=== PATIENT | female | born 1945 | race African-American/Black ===

== ENCOUNTER 2016-07-24 08:12 | Observation (INO) | payer OTHER, MEDICARE ==
[2016-07-24 08:18] VITALS: BMI 17.9
--- NOTE | 2016-07-24 08:33 | PDOC ---
History of Present Illness - General History Source: Patient Exam Limitations: No Limitations - History of Present Illness Initial Comments: 07/24/16 08:33 The patient is a 71-year-old woman with a significant past medical history of hypertension and dystonia who presents to the emergency department via walk-in for further evaluation of itchiness on both hands. Patient reports taking a new medication Carbidopal, and increased her dosagefrom Q.D from TID, over the past 4 days Ever since, she has noted progressive itchiness on both of her hands. This morning, she noted left hand swelling this morning. She placed Calamine lotion on her hands that provided mild relief. She states that she had a brief period of chest pain with associated palpitations that lasted approximately 20 minuted. She initially attributed her chest pain to possible heartburn and drank Prune juice and club soda that did not provide any relief. She denies any associated symptoms of shortness of breath, lightheadedness, dizziness, headache, visual changes. Allergies: Aspirin. Penicillin Past Surgical History: None reported Social History: Current everyday cigarette smoker (approximately 10-15/day). No ETOH and recreational drug use. Primary Care Physician: Dr. Manohar Ramirez Neurologist: Dr. Nyla Medina <Pam Zhou - Last Filed: 07/24/16 11:21> <Ganesh Walker - Last Filed: 07/24/16 11:28> - General Chief Complaint: Chest Pain Stated Complaint: CHEST PAIN, TREMORS Time Seen by Provider: 07/24/16 08:28 Past History <Pam Zhou - Last Filed: 07/24/16 11:21> - Past Medical History HTN: Yes Other medical history: dystonia - Immunization History Immunization Up to Date: Yes - Psycho/Social/Smoking Cessation Hx Suicidal Ideation: No Smoking History: Current every day smoker Have you smoked in the past 12 months: Yes Number of Cigarettes Smoked Daily: 10 Information on smoking cessation initiated: No Hx Alcohol Use: No Drug/Substance Use Hx: No Substance Use Type: None <Ganesh Walker - Last Filed: 07/24/16 11:28> - Past Medical History Allergies/Adverse Reactions: Allergies Allergy/AdvReac Type Severity Reaction Status Date / Time aspirin Allergy Verified 07/24/16 08:13 Penicillins Allergy Verified 07/24/16 08:13 Home Medications: Ambulatory Orders Carbidopa/Levodopa [Carbidopa-Levodopa 25-100 Tab] 1 each PO TID 07/24/16 Diltiazem Cd [Cardizem Cd -] 240 mg PO DAILY 07/24/16 Review of Systems - Review of Systems Constitutional: No: Chills, Fever Respiratory: No: Cough, Shortness of Breath Cardiac (ROS): Yes: Chest Pain, Edema (L hand). No: Lightheadedness ABD/GI: No: Nausea, Vomiting Integumentary: Yes: Pruritus All Other Systems: Reviewed and Negative <Ganesh Walker - Last Filed: 07/24/16 11:28> *Physical Exam - Vital Signs Last Vital Signs Temp Pulse Resp BP Pulse Ox 98.4 F 107 H 16 163/65 95 07/24/16 08:14 07/24/16 08:14 07/24/16 08:14 07/24/16 08:14 07/24/16 08:14 - Physical Exam Comments: 07/24/16 08:35 GENERAL: The patient is awake, alert, and fully oriented, in no acute distress. HEAD: Normal with no signs of trauma. EYES: Pupils equal, round and reactive to light, extraocular movements intact, sclera anicteric, conjunctiva clear with no pallor. ENT: Ears normal, nares patent, oropharynx clear without exudates. Moist mucous membranes. NECK: Normal range of motion, supple without lymphadenopathy, JVD, or masses. LUNGS: Breath sounds equal, clear to auscultation bilaterally. No wheeze/ crackles. HEART: Regular rate and rhythm, normal S1 and S2 without murmur or rub. ABDOMEN: Soft/nontender/nondistended. BS wnl. No guarding or rebound. No palpable masses. No hepatosplenomegaly. EXTREMITIES: Normal range of motion, no edema. No clubbing or cyanosis. No cords, erythema, or tenderness. NEUROLOGICAL: Cranial nerves II through XII grossly intact. Normal speech. PSYCH: Normal mood, normal affect. SKIN: +Slight soft tissue swelling at the dorsum of the right hand. Neurovascularly intact. Very dry skin from the elbows distally, bilaterally. Both hands feel warm to touch without evidence of cellulitis. <Pam Zhou - Last Filed: 07/24/16 11:21> - Vital Signs Last Vital Signs Temp Pulse Resp BP Pulse Ox 98.4 F 107 H 16 163/65 95 07/24/16 08:14 07/24/16 08:14 07/24/16 08:14 07/24/16 08:14 07/24/16 08:14 <DeniseGanesh - Last Filed: 07/24/16 11:28> Heart Score/ECG Review - History History: Slightly suspicious - Electrocardiogram EKG: Normal - Age Age: >/= 65 - Risk Factors Based on the list above the patient has:: 1-2 risk factors - Troponin Troponin: </= normal limit - Score Heart Score - Total: 3 #1 ECG reviewed & interpreted by me at: 08:24 General ECG Interpretation: Sinus Rhythm, Normal Rate (99), Normal Intervals ( qtc 423, IRBBB), No acute ischemic changes <Ganesh Walker - Last Filed: 07/24/16 11:28> ED Treatment Course - LABORATORY CBC & Chemistry Diagram: 07/24/16 09:31 07/24/16 09:31 - RADIOLOGY Radiograph Interpretation: 07/24/16 11:10 EXAM: RAD/CHEST PA LAT IMPRESSION: There are clear lungs, normal mediastinum and sharp angles. The bones are intact. There is slight breast asymmetry with the left breast larger than the right. <AbelardoPam - Last Filed: 07/24/16 11:21> - LABORATORY CBC & Chemistry Diagram: 07/24/16 09:31 07/24/16 09:31 <Ganesh Walker - Last Filed: 07/24/16 11:28> Medical Decision Making - Medical Decision Making 07/24/16 11:[address] Dinesh eSrra. 07/24/16 11:[address] Dinesh Serra. Case was discussed. <Pam Zhou - Last Filed: 07/24/16 11:21> - Medical Decision Making 07/24/16 08:57 A portion of this note was documented by scribe services under my direction. I have reviewed the details of the note, within reason, and agree with the documentation with the following case summary and management plan written by me. 71-year-old female with history of hypertension and extensive smoking history, dystonia and recently started on a new medication with increasing doses over the last 4 days, now presents with worsening itching of both hands with left hand swelling this morning followed by chest pain. No history of recurring chest pain, had isolated of sternal chest pain that lasted for about 20-30 minutes, not associated with sob/palpitations. never had a stress test per report. exam as noted 71y/o F with some ACS risk factors p/w atypical chest pain in the setting of hand itching/swelling but no evidence of cellulitis. EKG nonischemic. labs, ua cxr, ekg reassess, likely cardiac monitoring 07/24/16 11:05 WBC 14.6, left hand swelling persistent with some streaking now on the dorsal aspect over the third metacarpal, concerning for early hand cellulitis. Trop negative, CXR wnl. Will start abx, vanco given pcn allergy. Admit for cardiac monitoring given atypical chest pain but risk factors, HEART 3. Allergic to asa so held. Patient of Dr. Ramirez. 07/24/16 11:27 Accepted for inpatient tele by Dr. Serra. <Ganesh Walker - Last Filed: 07/24/16 11:28> *DC/Admit/Observation/Transfer - Attestations Scribe Attestion: 07/24/16 08:36 Documentation prepared by Pam Zhou, acting as medical secretary teacher for Ganesh Walker MD. <Pam Zhou - Last Filed: 07/24/16 11:21> - Discharge Dispostion Admit: Yes <Ganesh Walker - Last Filed: 07/24/16 11:28> Diagnosis at time of Disposition: Precordial chest pain, Dystonia, Cellulitis of left hand - Discharge Dispostion Condition at time of disposition: Fair
[2016-07-24 09:38] LABS: BASOPHIL 0.2 % (0-2.0); EOSINOPHIL 0.2 % (0-4.5); MCH 27.9 pg (25.7-33.7); MCHC 32.8 g/dl (32.0-36.0); MEAN PLT VOLUME 7.6 fl (7.5-11.1); NEUTROPHILS 78.5 % (42.8-82.8); PLATELET COUNT 240 K/MM3 (134-434); RDW 13.1 % (11.6-15.6); WHITE BLOOD COUNT 14.6 K/mm3 (4.0-10.0)
[2016-07-24 10:01] LABS: INR 1.18 (0.82-1.09)
[2016-07-24 10:05] LABS: ALBUMIN 3.1 g/dl (3.4-5.0); ANION GAP 10 (8-16); CALCIUM 9.5 mg/dL (8.5-10.1); CO2 25 mmol/L (21-32); COCKROFT - GAULT 78.6505; CREATININE 0.5 mg/dL (0.55-1.02); GLUCOSE,RANDOM 92 mg/dL (74-106); MAGNESIUM 1.5 mg/dL (1.8-2.4); SGOT/AST 13 U/L (15-37); SGPT/ALT 13 U/L (12-78)
[2016-07-24 10:08] LABS: ALK PHOS 97 U/L (45-117); BILIRUBIN,TOTAL 0.4 mg/dL (0.2-1.0); TOT PROT 6.9 g/dl (6.4-8.2); TROPONIN I < 0.02 ng/ml (0.00-0.05)
[2016-07-24] MEDS ORDERED: VANCOMYCIN 1,000 MG in DEXTROSE 5%-WATER - 250 ML IVPB ONE (11:04)
[2016-07-24] MEDS ORDERED: VANCOMYCIN 1 GRAM (PRE-DOCKED) 250 ML IVPB ONE (11:52)
--- NOTE | 2016-07-24 12:52 | HP ---
Admitting History and Physical - Primary Care Physician PCP: Manohar Ramirez - Admission Chief Complaint: My hands itch History of Present Illness: Mrs Wilson is a pleasant 71 year old female who comes in with hand itching. She says she woke up this morning around 3am with bilateral hand swelling with itching. She says she was scratching but it was not getting better, so she decided to come in. She had heartburn associated with it. She says the heartburn lasted for less than a minute before it went away. Aside from this she is without complaint. She denies fevers, chills, lightheadedness, dizziness , chest pressure, shortness of breath, nausea, vomiting, diarrhea, constipation , difficulty or pain on urination, or swelling. She still has itching in her hand but it is improved. She feels the swelling is improved as well. She is requesting to go home. 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 Cardiovascular: Yes: HTN - Past Surgical History Past Surgical History: Yes: None - Smoking History Smoking history: Current every day smoker Have you smoked in the past 12 months: Yes Aproximately how many cigarettes per day: 10 - Alcohol/Substance Use Hx Alcohol Use: No History of Substance Use: reports: None - Social History Usual Living Arrangement: Yes: With Spouse ADL: Independent History of Recent Travel: No Home Medications - Allergies Allergies/Adverse Reactions: Allergies Allergy/AdvReac Type Severity Reaction Status Date / Time aspirin Allergy Verified 07/24/16 08:13 Penicillins Allergy Verified 07/24/16 08:13 - Home Medications Home Medications: Ambulatory Orders Carbidopa/Levodopa [Carbidopa-Levodopa 25-100 Tab] 1 each PO TID 07/24/16 Diltiazem Cd [Cardizem Cd -] 240 mg PO DAILY 07/24/16 Family Disease History - Family Disease History Family History: Unable to Obtain (patient is adopted) Review of Systems Findings/Remarks: Full review of systems obtained, as per HPI and otherwise negative Physical Examination Vital Signs: Vital Signs Temperature 98 F 07/24/16 12:00 Pulse Rate 73 07/24/16 12:00 Respiratory Rate 14 07/24/16 12:00 Blood Pressure 120/71 07/24/16 12:00 O2 Sat by Pulse Oximetry (%) 98 07/24/16 12:00 Constitutional: Yes: Well Nourished, No Distress, Calm Eyes: Yes: Conjunctiva Clear, EOM Intact, PERRL Cardiovascular: Yes: Regular Rate and Rhythm. No: Gallop, Murmur, Rub Respiratory: Yes: Regular, CTA Bilaterally. No: Rales, Rhonchi, Wheezes Gastrointestinal: Yes: Normal Bowel Sounds, Soft. No: Distention, Tenderness Extremities: Yes: WNL Edema: No Labs: Laboratory Results - last 24 hr 07/24/16 07/24/16 07/24/16 09:31 09:31 09:31 WBC 14.6 H RBC 4.29 Hgb 12.0 Hct 36.5 MCV 85.0 MCHC 32.8 RDW 13.1 Plt Count 240 MPV 7.6 Neutrophils % 78.5 Lymphocytes % 16.4 Monocytes % 4.7 Eosinophils % 0.2 Basophils % 0.2 INR 1.18 H Sodium 140 Potassium 4.0 Chloride 105 Carbon Dioxide 25 Anion Gap 10 BUN 12 Creatinine 0.5 L Creat Clearance w eGFR > 60 Random Glucose 92 Calcium 9.5 Magnesium 1.5 L Total Bilirubin 0.4 AST 13 L ALT 13 Alkaline Phosphatase 97 Creatine Kinase 48 Troponin I < 0.02 Total Protein 6.9 Albumin 3.1 L Imaging - Results Chest X-ray: Report Reviewed, Image Reviewed EKG: Image Reviewed Problem List - Problems (1) Atypical chest pain Code(s): R07.89 - OTHER CHEST PAIN (2) Pruritus Code(s): L29.9 - PRURITUS, UNSPECIFIED (3) HTN (hypertension) Code(s): I10 - ESSENTIAL (PRIMARY) HYPERTENSION Assessment/Plan -patient currently asymptomatic aside from itching -no serious edema or erythema -case d/w cardiology, chest pain atypical and no urgent need for admission -can discharge home with close follow up
--- NOTE | 2016-07-24 13:13 | CON.CARD ---
Cardiology Consult (text) - Consultation Consultation Note: cc: b/l hand itching hpi: 71 f hx htn, smoking, dystonia here with b/l hand itching. Pt had been feeling well until this AM when she woke up early with itching and redness in her hands b/l. She got up and had some juice which caused her to have indigestion so then had some soda which worsened the indigestion (epigastric burning). The symptom resolved on own in a few minutes. No palps, dizzy, loc, pnd, orthopnea, le edema. No hx hrt dz. Only complaint now is hand itching still. pmh: per hpi psh: nc social: +tob fam: adopted, hx unknown ros: per hpi; no fever, nvd, cough, nasal congestion, MENJIVAR, vision changes, gib, hematuria meds: Home Medications Medication Instructions Recorded Carbidopa/Levodopa 1 each PO TID 07/24/16 [Carbidopa-Levodopa 25-100 Tab] Diltiazem Cd [Cardizem Cd -] 240 mg PO DAILY 07/24/16 pe: Vital Signs Period Temp Pulse Resp BP Sys/Watkins Pulse Ox Last 24 Hr 98 F-98.4 F 67-107 14-16 120-163/64-71 95-98 nad no jvd rrr s1s2 no mrg cta bl nl eff aaox3 no le e/c/c abd nt nd pos bs pos dp pt no carotid bruits no jaundice diaphoresis Laboratory Last Values WBC 14.6 K/mm3 (4.0-10.0) H 07/24/16 09:31 RBC 4.29 M/mm3 (3.60-5.2) 07/24/16 09:31 Hgb 12.0 GM/dL (10.7-15.3) 07/24/16 09:31 Hct 36.5 % (32.4-45.2) 07/24/16 09:31 MCV 85.0 fl (80-96) 07/24/16 09:31 MCHC 32.8 g/dl (32.0-36.0) 07/24/16 09:31 RDW 13.1 % (11.6-15.6) 07/24/16 09:31 Plt Count 240 K/MM3 (134-434) 07/24/16 09:31 MPV 7.6 fl (7.5-11.1) 07/24/16 09:31 Neutrophils % 78.5 % (42.8-82.8) 07/24/16 09:31 Lymphocytes % 16.4 % (8-40) 07/24/16 09:31 Monocytes % 4.7 % (3.8-10.2) 07/24/16 09:31 Eosinophils % 0.2 % (0-4.5) 07/24/16 09: Basophils % 0.2 % (0-2.0) 07/24/16 09:31 INR 1.18 (0.82-1.09) H 07/24/16 09:31 Sodium 140 mmol/L (136-145) 07/24/16 09:31 Potassium 4.0 mmol/L (3.5-5.1) 07/24/16 09:31 Chloride 105 mmol/L (98-107) 07/24/16 09:31 Carbon Dioxide 25 mmol/L (21-32) 07/24/16 09:31 Anion Gap 10 (8-16) 07/24/16 09:31 BUN 12 mg/dL (7-18) 07/24/16 09:31 Creatinine 0.5 mg/dL (0.55-1.02) L 07/24/16 09:31 Creat Clearance w eGFR > 60 (>60) 07/24/16 09:31 Random Glucose 92 mg/dL (74-106) 07/24/16 09:31 Calcium 9.5 mg/dL (8.5-10.1) 07/24/16 09:31 Magnesium 1.5 mg/dL (1.8-2.4) L 07/24/16 09:31 Total Bilirubin 0.4 mg/dL (0.2-1.0) 07/24/16 09:31 AST 13 U/L (15-37) L 07/24/16 09:31 ALT 13 U/L (12-78) 07/24/16 09:31 Alkaline Phosphatase 97 U/L (45-117) 07/24/16 09:31 Creatine Kinase 48 IU/L (26-192) 07/24/16 09:31 Troponin I < 0.02 ng/ml (0.00-0.05) 07/24/16 09:31 Total Protein 6.9 g/dl (6.4-8.2) 07/24/16 09:31 Albumin 3.1 g/dl (3.4-5.0) L 07/24/16 09:31 cxr: clear lungs ecg 07/24/16: sr, pac, nl intervals, no ischemic changes a/p: 71 f hx htn, smoking, dystonia here with b/l hand itching. chest pain: -atypical, indigestion type feeling after drinking juice and soda, now resolved. ECG unremarkable, ce's negx1. -this sx does not seem cardiac in nature, more GI -pt instructed to f/u as outpt with me for monitoring of sxs and consideration of further cardiac testing htn: -cont home dilt tob use: -smoking cessation
[2016-07-24 13:57] VITALS: BP 134/78; PULSE 88; TEMP 97.8
--- NOTE | 2016-07-25 17:31 | EKG ---
Test Reason : Blood Pressure : / mmHG Vent. Rate : 099 BPM Atrial Rate : 099 BPM P-R Int : 128 ms QRS Dur : 066 ms QT Int : 330 ms P-R-T Axes : 085 020 039 degrees QTc Int : 423 ms POOR DATA QUALITY, INTERPRETATION MAY BE ADVERSELY AFFECTED SINUS RHYTHM WITH PREMATURE ATRIAL COMPLEXES NONSPECIFIC ST ABNORMALITY ABNORMAL ECG NO PREVIOUS ECGS AVAILABLE Confirmed by MARCOS HICKMAN MD ([id number]) on 07/25/2016 5:31:06 PM Referred By: Confirmed By:MARCOS HICKMAN MD
== END 2016-07-24 14:00 | disposition home or self-care (01) ==
LOC: JER 08:12 → JERBED 11:28 → INTOOBSV 11:28
PROVIDERS: ADMIT Internal Medicine; ATTEND Internal Medicine
DX: R07.89 Other chest pain (principal); G24.9 Dystonia, unspecified; L03.114 Cellulitis of left upper limb; I10 Essential (primary) hypertension; F17.210 Nicotine dependence, cigarettes, uncomplicated; Z88.0 Allergy status to penicillin; Z88.6 Allergy status to analgesic agent
CPT/HCPCS: 71020-TC; 80053; 82550; 83735; 84484; 85610; 93005; 93010; 99285-25; G0378

== ENCOUNTER 2016-08-10 09:23 | Inpatient (IN) | payer MEDICARE, OTHER ==
--- NOTE | 2016-08-10 09:35 | PDOC ---
History of Present Illness <Amie Mak - Last Filed: 08/10/16 13:57> <Damon Hodgson - Last Filed: 08/10/16 14:46> - General History Source: Patient Exam Limitations: No Limitations - History of Present Illness Initial Comments: 08/10/16 09:35 Patient was brought into emergency department by , nonambulatory secondary to exquisite left hip and pelvis pain. has neurogenic dystrophy but is mobile with walker however mildly states unsteady on feet chronically. was turning and slipped 7 days ago falling onto her left side. Since that time patient bit less mobile although able to get herself from bathroom and back but refused to come to emergency department for evaluation. Denies numbness or tingling her toes, denies any back or head injury. But remains primarily nonweightbearing due to pain 08/10/16 14:02 Occurred: reports: last week Severity: reports: moderate, severe Pain Location: reports: lower extremity (left hip) Method of Injury: Yes: fall Modifying Factors: improves with: cold therapy Loss of Consciousness: no loss of consciousness Associated Symptoms (Fall): denies symptoms <Kemi Galvan - Last Filed: 08/10/16 15:19> - General Chief Complaint: Pain Stated Complaint: LT HIP PAIN Time Seen by Provider: 08/10/16 09:34 Past History <Amie Mak - Last Filed: 08/10/16 13:57> <Damon Hodgson - Last Filed: 08/10/16 14:46> - Travel Traveled outside of the country in the last 30 days: No Close contact w/someone who was outside of country & ill: No - Past Medical History HTN: Yes Other medical history: dystonia - Immunization History Immunization Up to Date: Yes - Psycho/Social/Smoking Cessation Hx Anxiety: No Suicidal Ideation: No Smoking History: Current every day smoker Have you smoked in the past 12 months: Yes Number of Cigarettes Smoked Daily: 10 Information on smoking cessation initiated: No Hx Alcohol Use: No Drug/Substance Use Hx: No Substance Use Type: None <Kemi Galvan - Last Filed: 08/10/16 15:19> - Past Medical History Allergies/Adverse Reactions: Allergies Allergy/AdvReac Type Severity Reaction Status Date / Time aspirin Allergy Verified 08/10/16 09:26 Penicillins Allergy Verified 08/10/16 09:26 Home Medications: Ambulatory Orders Carbidopa/Levodopa [Carbidopa-Levodopa 25-100 Tab] 1 each PO TID 07/24/16 Diltiazem Cd [Cardizem Cd -] 240 mg PO DAILY 07/24/16 Trauma Specific PMHX - Complaint Specific PMHX Back Injury: No Neck Injury: No <Kemi Galvan - Last Filed: 08/10/16 15:19> Review of Systems - Review of Systems Able to Perform ROS?: Yes Is the patient limited Armenian proficient: Yes Constitutional: Yes: Symptoms Reported, See HPI. No: Fever HEENTM: No: Symptoms Reported Respiratory: Yes: See HPI. No: Symptoms reported Musculoskeletal: Yes: Symptoms Reported, See HPI, Joint Pain (left hip ) Integumentary: No: Symptoms Reported All Other Systems: Reviewed and Negative <Kemi Galvan - Last Filed: 08/10/16 15:19> *Physical Exam - Vital Signs Last Vital Signs Temp Pulse Resp BP Pulse Ox 97.9 F 158 H 18 108/76 100 08/10/16 09:26 08/10/16 09:26 08/10/16 09:26 08/10/16 09:26 08/10/16 09:26 <Amie Mak - Last Filed: 08/10/16 13:57> - Vital Signs Last Vital Signs Temp Pulse Resp BP Pulse Ox 97.9 F 158 H 18 108/76 100 08/10/16 09:26 08/10/16 09:26 08/10/16 09:26 08/10/16 09:26 08/10/16 09:26 <Damon Hodgson - Last Filed: 08/10/16 14:46> - Vital Signs Last Vital Signs Temp Pulse Resp BP Pulse Ox 97.9 F 158 H 18 108/76 100 08/10/16 09:26 08/10/16 09:26 08/10/16 09:26 08/10/16 09:26 08/10/16 09:26 - Physical Exam General Appearance: Yes: Apparent Distress, Mild Distress, Moderate Distress HEENT: positive: GRISEL, Normal ENT Inspection, TMs Normal, Pharynx Normal Neck: positive: Supple. negative: Tender Respiratory/Chest: positive: Lungs Clear, Normal Breath Sounds Gastrointestinal/Abdominal: positive: Tender, Soft Musculoskeletal: positive: Normal Inspection, CVA Tenderness, Other (unable to left left leg/ pain with pelvis rocking and leftr leg appears slightly shorter. ). negative: Vertebral Tenderness Extremity: positive: Normal Capillary Refill, Normal Inspection. 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 negative: Motor Strength 5/5 <Kemi Galvan - Last Filed: 08/10/16 15:19> Heart Score/ECG Review - ECG Intrepretation Comment:: 08/10/16 14:46 Atrial Fibrillation, 95 bpm Abnormal ECG. RI interval: * ms QRS Duration: 70 ms QT/QTc 300/377 ms P-R-T axes: * 35 50 <Damon Hodgson - Last Filed: 08/10/16 14:46> ED Treatment Course - LABORATORY CBC & Chemistry Diagram: 08/10/16 12:59 08/10/16 13:14 - ADDITIONAL ORDERS Additional order review: 08/10/16 12:59 RBC 4.17 MCV 85.0 MCHC 33.3 RDW 12.7 MPV 7.6 Neutrophils % 75.5 Lymphocytes % 17.6 Monocytes % 5.1 Eosinophils % 0.8 D Basophils % 1.0 D - Medications Given in the ED: ED Medications Discontinued Medications Generic Name Dose Route Start Last Admin Trade Name Freq PRN Reason Stop Dose Admin Acetaminophen/Codeine Phosphate 1 tab 08/10/16 11:12 08/10/16 13:14 Tylenol # 3 - PO 08/10/16 11:13 Not Given ONCE STA <Amie Mak - Last Filed: 08/10/16 13:57> - LABORATORY CBC & Chemistry Diagram: 08/10/16 12:59 08/10/16 13:14 - ADDITIONAL ORDERS Additional order review: Laboratory Results 08/10/16 13:14 Sodium 142 Potassium 4.3 Chloride 103 Carbon Dioxide 29 Anion Gap 10 BUN 16 D Creatinine 0.5 L Creat Clearance w eGFR > 60 Random Glucose 112 H D Calcium 9.9 Total Bilirubin 0.3 D AST 13 L ALT 15 Alkaline Phosphatase 99 Total Protein 7.8 Albumin 3.5 08/10/16 12:59 RBC 4.17 MCV 85.0 MCHC 33.3 RDW 12.7 MPV 7.6 Neutrophils % 75.5 Lymphocytes % 17.6 Monocytes % 5.1 Eosinophils % 0.8 D Basophils % 1.0 D - Medications Given in the ED: ED Medications Discontinued Medications Generic Name Dose Route Start Last Admin Trade Name Pawel PRN Reason Stop Dose Admin Acetaminophen/Codeine Phosphate 1 tab 08/10/16 11:12 08/10/16 13:14 Tylenol # 3 - PO 08/10/16 11:13 Not Given ONCE STA <Damon Hodgson - Last Filed: 08/10/16 14:46> - LABORATORY CBC & Chemistry Diagram: 08/10/16 12:59 08/10/16 13:14 <Kemi Galvan - Last Filed: 08/10/16 15:19> Progress Note - Progress Note Progress Note: Due to patient's exquisite pain, and possibility of hip fracture, patient was moved to main emergency department for remainder of care, hip x-ray possible evidence of acetabular fracture of left hip. Reviewed with Dr. Spence who will receive patient and continue care <Kemi Galvan - Last Filed: 08/10/16 15:19> Medical Decision Making - Medical Decision Making 08/10/16 13:57 71 yo F s/p trip and fall 2 days ago, c/o let hip pain. worse with walking. has been walking with a walker. no n/v no head injury no neck or back pain. pain severe. d/w dr. Zuluaga, covering for dr. hamilton, will admit pt. told to put under dr. hansen. recommend [facility] for ortho. <Amie Mak - Last Filed: 08/10/16 13:57> *DC/Admit/Observation/Transfer - Discharge Dispostion Admit: Yes <Amie Mak - Last Filed: 08/10/16 13:57> - Attestations Scribe Attestion: 08/10/16 14:48 Documentation prepared by Damon Hodgson, acting as certified medical technician for Amie Mak MD, . <Damon Hodgson - Last Filed: 08/10/16 14:46> <Kemi Galvan - Last Filed: 08/10/16 15:19> Diagnosis at time of Disposition: Hip fracture - Referrals
[2016-08-10] MEDS ORDERED: ACETAMINOPHEN WITH CODEINE 300MG/30MG TABLET ONE (10:14)
[2016-08-10] MEDS ORDERED: ACETAMINOPHEN WITH CODEINE 300MG/30MG TABLET PO STA (11:12)
[2016-08-10 13:25] LABS: EOSINOPHIL 0.8 % (0-4.5); MCH 28.3 pg (25.7-33.7); MCHC 33.3 g/dl (32.0-36.0); MEAN PLT VOLUME 7.6 fl (7.5-11.1); NEUTROPHILS 75.5 % (42.8-82.8); PLATELET COUNT 274 K/MM3 (134-434); RDW 12.7 % (11.6-15.6); WHITE BLOOD COUNT 9.2 K/mm3 (4.0-10.0)
[2016-08-10 14:03] LABS: ALBUMIN 3.5 g/dl (3.4-5.0); ANION GAP 10 (8-16); BILIRUBIN,TOTAL 0.3 mg/dL (0.2-1.0); CALCIUM 9.9 mg/dL (8.5-10.1); CO2 29 mmol/L (21-32); COCKROFT - GAULT 81.5575; CREATININE 0.5 mg/dL (0.55-1.02); GLUCOSE,RANDOM 112 mg/dL (74-106); SGOT/AST 13 U/L (15-37); SGPT/ALT 15 U/L (12-78); TOT PROT 7.8 g/dl (6.4-8.2)
[2016-08-10 14:04] LABS: ALK PHOS 99 U/L (45-117)
[2016-08-10] MEDS ORDERED: morphine CARPU-JECT 2 MG/1 ML DISP.SYRIN IVPUSH ONE ×2 (15:50→15:53)
[2016-08-10] MEDS ORDERED: morphine CARPU-JECT 2 MG/1 ML DISP.SYRIN ONE (15:51)
[2016-08-10 16:56] VITALS: BMI 18.1
--- NOTE | 2016-08-10 17:07 | HP ---
Admitting History and Physical - Admission History of Present Illness: 71 yo female, history of dystonia, uses a walker at home, was in her kitchen 7 days ago moving meat product s to her counter when she got tripped up by her socks and fell to the floor. She was able to get up , although having some pain , but able to go about the rest of her day. Since then has had increasing pain in her left leg, mainly on anterior and lateral left upper leg. Has increased pain when walking on it. 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 [employer] History of Recent Travel: No Other Social History: Home Medications - Allergies Allergies/Adverse Reactions: Allergies Allergy/AdvReac Type Severity Reaction Status Date / Time aspirin Allergy Verified 08/10/16 09:26 Penicillins Allergy Verified 08/10/16 09:26 - Home Medications Home Medications: Ambulatory Orders Carbidopa/Levodopa [Carbidopa-Levodopa 25-100 Tab] 1 each PO TID 07/24/16 Diltiazem Cd [Cardizem Cd -] 240 mg PO DAILY 07/24/16 Family Disease History - Family Disease History Family History: Unremarkable Review of Systems - Review of Systems Constitutional: denies: Chills, Fever Eyes: reports: No Symptoms HENT: denies: Difficult Swallowing Neck: denies: Decreased ROM, Stiffness Cardiovascular: denies: Chest Pain, Palpitations Respiratory: denies: Cough, SOB, Wheezing Gastrointestinal: denies: Abdominal Pain, Diarrhea, Dysphagia, Vomiting Genitourinary: denies: Burning, Discharge, Dysuria Integumentary: denies: Lesions Neurological: reports: Weakness (due to dystonia). denies: Change in LOC Physical Examination Vital Signs: Vital Signs Temperature 98.5 F 08/10/16 16:26 Pulse Rate 88 08/10/16 16:26 Respiratory Rate 18 08/10/16 16:26 Blood Pressure 147/67 08/10/16 16:26 O2 Sat by Pulse Oximetry (%) 95 05/20/17 15:22 Constitutional: Yes: Well Nourished, No Distress, Calm Eyes: Yes: Conjunctiva Clear, EOM Intact, PERRL HENT: Yes: Atraumatic, Normocephalic, Other (speech somewhat delayed due to dystonia) Neck: Yes: Supple, Trachea Midline Cardiovascular: Yes: Regular Rate and Rhythm, S1, S2. No: Murmur Respiratory: Yes: Regular, CTA Bilaterally Gastrointestinal: Yes: Normal Bowel Sounds, Soft. No: Distention, Tenderness Extremities: Yes: Other (tenderness to palpation anterior and lateral hip on left side) Edema: No Neurological: Yes: Alert, Oriented Labs: Laboratory Tests 08/10/16 08/10/16 12:59 13:14 WBC 9.2 D RBC 4.17 Hgb 11.8 Hct 35.5 MCV 85.0 MCHC 33.3 RDW 12.7 Plt Count 274 MPV 7.6 Neutrophils % 75.5 Lymphocytes % 17.6 Monocytes % 5.1 Eosinophils % 0.8 D Basophils % 1.0 D Sodium 142 Potassium 4.3 Chloride 103 Carbon Dioxide 29 Anion Gap 10 BUN 16 D Creatinine 0.5 L Creat Clearance w eGFR > 60 Random Glucose 112 H D Calcium 9.9 Total Bilirubin 0.3 D AST 13 L ALT 15 Alkaline Phosphatase 99 Total Protein 7.8 Albumin 3.5 Imaging - Results Cat Scan: Report Reviewed (CT lower extremity/ pelvis -fracture of greater trochanter left hip (incidental abd aortic aneurysm 4cm seen)) Problem List - Problems (1) Hip fracture Assessment/Plan: -ortho eval for further treatment recommendations-tylenol with codeine for pain Code(s): S72.009A - FRACTURE OF UNSP PART OF NECK OF UNSP FEMUR, INIT (2) Dystonia Assessment/Plan: -on carbidopa/ levadopa Code(s): G24.9 - DYSTONIA, UNSPECIFIED (3) HTN (hypertension) Assessment/Plan: -on cardizem Code(s): I10 - ESSENTIAL (PRIMARY) HYPERTENSION (4) Aneurysm, abdominal aortic Assessment/Plan: -incidental finding -will check abd aortic US Code(s): I71.4 - ABDOMINAL AORTIC ANEURYSM, WITHOUT RUPTURE
[2016-08-10] MEDS: ACETAMINOPHEN WITH CODEINE 300MG/30MG TABLET PO PRN (20:31)
--- NOTE | 2016-08-10 21:51 | CONSULT ---
Consult - text type - Consultation Consultation Note: FULL CONSULT DICTATED IMP: LEFT GREATER TROCHANTER FX PLAN: nO OPERATIVE TREATMENT NECESSARY. WBAT, ANALGESICS, PT, DC PLANNING
[2016-08-10] MEDS: CARBIDOPA/LEVODOPA 25/100 TABLET (FP) PO SCH (22:12)
[2016-08-10] MEDS: HEPARIN NA (PORCINE) 5,000 UNITS/ML 1ML VIAL SQ SCH (22:18)
[2016-08-11] MEDS: CARBIDOPA/LEVODOPA 25/100 TABLET (FP) PO SCH ×3 (05:52→21:42)
[2016-08-11] MEDS: HEPARIN NA (PORCINE) 5,000 UNITS/ML 1ML VIAL SQ SCH ×2 (09:32→21:41)
[2016-08-11] MEDS: ACETAMINOPHEN WITH CODEINE 300MG/30MG TABLET PO PRN ×2 (09:35→21:42)
--- NOTE | 2016-08-11 10:22 | DS ---
Physical Examination Vital Signs: Vital Signs Temperature 98 F 08/11/16 08:00 Pulse Rate 67 08/11/16 08:00 Respiratory Rate 18 08/11/16 08:00 Blood Pressure 118/57 08/11/16 08:00 O2 Sat by Pulse Oximetry (%) 95 08/10/16 21:00 Constitutional: Yes: No Distress, Calm Eyes: Yes: Conjunctiva Clear, EOM Intact HENT: Yes: Atraumatic, Normocephalic Neck: Yes: Supple, Trachea Midline Cardiovascular: Yes: Regular Rate and Rhythm, S1, S2. No: Murmur Respiratory: Yes: Regular, CTA Bilaterally. No: Rales, Rhonchi, Wheezes Gastrointestinal: Yes: Normal Bowel Sounds, Soft. No: Distention, Tenderness Musculoskeletal: Yes: Other (tenderness left hip) Edema: No Discharge Summary Reason For Visit: HIP FRACTURE Current Active Problems Aneurysm, abdominal aortic (Acute) Hip fracture (Acute) Hospital Course: 71 yo female, h/o fall 1 week ago, presented with increasing pain in left leg and found to have fracture of greater trochanter of hip. Was admitted for the fracture, but ortho consult noted that no surgery necessary and patient can weight bear as tolerated. Therefore she is stable to be discharged home. Will get eval by physical therapy and to get evaluated for visiting nurse services. Had ultrasound this morning of abdomen, as incidental finding of abdominal aortic aneurysm on CT of pelvis (done to evaluate pain in hip in emergency room) , so result will need to be followed up as outpatient. Condition: Fair - Instructions Referrals: Manohar Ramirez MD [Primary Care Provider] - Disposition: VNS/HOME HEALTH CARE - Home Medications Comprehensive Discharge Medication List: Ambulatory Orders Carbidopa/Levodopa [Carbidopa-Levodopa 25-100 Tab] 1 each PO TID 07/24/16 Diltiazem Cd [Cardizem Cd -] 240 mg PO DAILY 07/24/16 Acetaminophen W/ Codeine #3 [Tylenol # 3 -] 1 tab PO Q4H PRN #30 tablet MDD 3
--- NOTE | 2016-08-11 10:58 | EKG ---
Test Reason : Blood Pressure : / mmHG Vent. Rate : 095 BPM Atrial Rate : 227 BPM P-R Int : 000 ms QRS Dur : 070 ms QT Int : 300 ms P-R-T Axes : 000 035 050 degrees QTc Int : 377 ms ATRIAL FIBRILLATION ABNORMAL ECG WHEN COMPARED WITH ECG OF 24-JUL-2016 08:24, ATRIAL FIBRILLATION HAS REPLACED SINUS RHYTHM Confirmed by MD CHAY, LEONARDO ([id number]) on 08/11/2016 10:57:46 AM Referred By: Confirmed By:LEONARDO CARTWRIGHT MD
--- NOTE | 2016-08-11 13:07 | CONS ---
DATE OF CONSULTATION: 08/10/2016 The patient is a 71-year-old female status post fall, injuring her left hip. She has been ambulating but with difficulty over the past 2 days and then finally presented to the emergency room complaining of increased pain. On physical exam, she has tenderness over greater trochanter with some mild increased pain with internal and external rotation. Able to straight-leg raise. Equal limb lengths. Full range of motion of the ankle and toes. X-rays and CAT scan reveal a displaced left greater trochanter fracture but the medial calcar is completely intact. IMPRESSION: Left greater trochanter fracture. PLAN: No operative intervention required. Patient can be weightbearing as tolerated with analgesics and physical therapy and discharged when medically able. MISAEL NAGY M.D. [id number]
[2016-08-12] MEDS: ACETAMINOPHEN WITH CODEINE 300MG/30MG TABLET PO PRN ×2 (02:17→12:31)
[2016-08-12] MEDS: CARBIDOPA/LEVODOPA 25/100 TABLET (FP) PO SCH ×3 (05:41→21:13)
--- NOTE | 2016-08-12 08:33 | PN ---
Progress Note (short form) - Note Progress Note: Ortho Pt seen and examined s/p left greater troch fx +ttp, decr rom nvi a/p PT wbat dvt ppx pain control d/c planning d/w Dr. Escalera
[2016-08-12] MEDS: HEPARIN NA (PORCINE) 5,000 UNITS/ML 1ML VIAL SQ SCH ×2 (09:50→21:15)
--- NOTE | 2016-08-12 12:19 | PN ---
Progress Note, Physician Chief Complaint: Mrs Wilson says she is having pain in her leg. No cp, sob, n/v - Current Medication List Current Medications: Active Medications Acetaminophen/Codeine Phosphate (Tylenol # 3 -) 1 tab PO Q4H PRN PRN Reason: FEVER OR PAIN Last Admin: 08/12/16 02:17 Dose: 1 tab Carbidopa/Levodopa (Sinemet 25/100 -) 1 each PO TID [facility] Last Admin: 08/12/16 05:41 Dose: 1 each Diltiazem HCl (Cardizem Cd -) 240 mg PO DAILY [facility] Last Admin: 08/12/16 09:50 Dose: 240 mg Heparin Sodium (Porcine) (Heparin -) 5,000 unit SQ BID [facility] Last Admin: 08/12/16 09:50 Dose: 5,000 unit - Objective Vital Signs: Vital Signs Temperature 97.8 F 08/12/16 07:48 Pulse Rate 58 L 08/12/16 07:48 Respiratory Rate 18 08/12/16 07:48 Blood Pressure 118/58 08/12/16 07:48 O2 Sat by Pulse Oximetry (%) 97 08/11/16 21:00 Constitutional: Yes: No Distress, Calm, Thin Cardiovascular: Yes: Regular Rate and Rhythm. No: Gallop, Murmur, Rub Respiratory: Yes: Regular, CTA Bilaterally. No: Rales, Rhonchi, Wheezes Gastrointestinal: Yes: Normal Bowel Sounds, Soft. No: Distention, Tenderness Extremities: Yes: WNL Edema: No Problem List - Problems (1) Hip fracture Assessment/Plan: -appreciate ortho assistance -no need for surgery -however unable to ambulate -continue PT -SNF placement Code(s): S72.009A - FRACTURE OF UNSP PART OF NECK OF UNSP FEMUR, INIT (2) Aneurysm, abdominal aortic Assessment/Plan: -incidental finding -will consult vascular surgery -suspect will not need intervention but will need to be followed Code(s): I71.4 - ABDOMINAL AORTIC ANEURYSM, WITHOUT RUPTURE (3) Dystonia Assessment/Plan: -continue sinemet Code(s): G24.9 - DYSTONIA, UNSPECIFIED (4) HTN (hypertension) Assessment/Plan: -continue diltiazem Code(s): I10 - ESSENTIAL (PRIMARY) HYPERTENSION
--- NOTE | 2016-08-12 19:40 | PN ---
Progress Note (short form) - Note Progress Note: Vascular Surgery Pt seen and examined. 4.7 cm AAA on ultrasound. No need for any intrvention unless greater than 5.5cm. Please have pt follow in office for surveillance. Please make pt appt prior to DC -- [phone] Shaquille Wiggins DO
[2016-08-13] MEDS: CARBIDOPA/LEVODOPA 25/100 TABLET (FP) PO SCH ×2 (06:17→15:41)
[2016-08-13] MEDS: HEPARIN NA (PORCINE) 5,000 UNITS/ML 1ML VIAL SQ SCH (10:13)
[2016-08-13] MEDS: ACETAMINOPHEN WITH CODEINE 300MG/30MG TABLET PO PRN (10:20)
--- NOTE | 2016-08-13 13:33 | DS ---
Physical Examination Vital Signs: Vital Signs Temperature 98.3 F 08/13/16 05:53 Pulse Rate 84 08/13/16 05:53 Respiratory Rate 20 08/13/16 05:53 Blood Pressure 117/60 08/13/16 05:53 O2 Sat by Pulse Oximetry (%) 96 08/12/16 09:00 Constitutional: Yes: No Distress, Calm, Thin Cardiovascular: Yes: Regular Rate and Rhythm. No: Gallop, Murmur, Rub Respiratory: Yes: Regular, CTA Bilaterally. No: Rales, Rhonchi, Wheezes Gastrointestinal: Yes: Normal Bowel Sounds, Soft. No: Distention, Tenderness Extremities: Yes: WNL Edema: No Discharge Summary Reason For Visit: HIP FRACTURE Current Active Problems Aneurysm, abdominal aortic (Acute) Hip fracture (Acute) Hospital Course: (1) Hip fracture Code(s): S72.009A - FRACTURE OF UNSP PART OF NECK OF UNSP FEMUR, INIT (2) Aneurysm, abdominal aortic Code(s): I71.4 - ABDOMINAL AORTIC ANEURYSM, WITHOUT RUPTURE (3) Dystonia Code(s): G24.9 - DYSTONIA, UNSPECIFIED (4) HTN (hypertension) Code(s): I10 - ESSENTIAL (PRIMARY) HYPERTENSION Mrs Wilson is a very pleasant 71 year old female who comes in with hip fracture. She was seen by ortho and intervention was not recommended. She was planned for discharge home, but was unsafe for discharge secondary to severe pain and inability to ambulate safely. She continued PT here and felt it would be most appropriate for her to continue PT at a SNF. She agreed and is planning on going. She was incidentally found to have a AAA, she was seen by vascular surgery and continued following was recommended. She is currently safe for discharge to a SNF. Condition: Stable - Instructions Diet, Activity, Other Instructions: regular diet. Up with assistance. Further activity per PT at SNF. Referrals: Manohar Ramirez MD [Primary Care Provider] - Shaquille Wiggins MD [Staff Physician] - Raheem Escalera MD [Staff Physician] - Disposition: RETIREMENT FACILITY - Home Medications Comprehensive Discharge Medication List: Ambulatory Orders Carbidopa/Levodopa [Carbidopa-Levodopa 25-100 Tab] 1 each PO TID 07/24/16 Diltiazem Cd [Cardizem Cd -] 240 mg PO DAILY 07/24/16 Acetaminophen W/ Codeine #3 [Tylenol # 3 -] 1 tab PO Q4H PRN #30 tablet MDD 3
[2016-08-13 14:57] VITALS: BP 128/65; PULSE 85; TEMP 98.7
--- NOTE | 2016-08-13 16:08 | PN ---
Progress Note (short form) - Note Progress Note: Ortho Pt seen and examined s/p left greater troch fx- feeling better, was able to ambulate with PT today +ttp, decr rom nvi a/p PT wbat dvt ppx pain control d/c planning to snf today f/u in the office in 2 weeks d/w Dr. Contreras
== END 2016-08-13 16:55 | DRG 536 ==
LOC: JER 09:23 → JERFT 09:23 → JERBED 13:56 → J6S 16:20
PROVIDERS: ADMIT Internal Medicine; ATTEND Internal Medicine
DX: S72.112A Displaced fracture of greater trochanter of left femur, initial encounter for closed fracture (principal); W19.XXXA Unspecified fall, initial encounter; Y93.9 Activity, unspecified; Y92.090 Kitchen in other non-institutional residence as the place of occurrence of the external cause; Y99.9 Unspecified external cause status; I71.4 Abdominal aortic aneurysm, without rupture; G24.9 Dystonia, unspecified; I10 Essential (primary) hypertension; F17.210 Nicotine dependence, cigarettes, uncomplicated
CPT/HCPCS: 36415; 72192-TC; 73523-TC; 73700-TC-RT; 76705-TC; 80053; 85025; 93005; 93010; 97116-GP; 97161-GP; 99284-25; J1644

== ENCOUNTER 2016-08-14 10:19 | Emergency (ER) | payer OTHER ==
[2016-08-14] MEDS ORDERED: SODIUM CHLORIDE 0.9% 1000 ML INFUS.BAG IV PRN (10:47)
[2016-08-14] MEDS ORDERED: SODIUM CHLORIDE 1,000 ML IV STA (10:47)
[2016-08-14] MEDS ORDERED: ACETAMINOPHEN 1000 MG/100 ML VIAL (NON FORMULARY) IVPB ONE (10:48)
[2016-08-14] MEDS ORDERED: dilTIAZem HCL 50 MG/10 ML - 10 ML VIAL IVPUSH ONE (11:12)
--- NOTE | 2016-08-14 11:20 | PDOC ---
History of Present Illness - General History Source: Patient Exam Limitations: No Limitations - History of Present Illness Initial Comments: 08/14/16 11:40 The patient is a 71-year-old woman, from [facility], accompanied by family, with a significant past medical history of hypertension and dystonia who presents to the emergency department via EMS for further evaluation of abnormal vital signs. Patient was in this ED, approximately 4 days ago for evaluation of exquisite left hip pain status post a fall 1 week prior to ED presentation. Patient was ultimately found to have a left hip fracture and was admitted. She was evaluated by Orthopedics and intervention was not recommended. She was discharged to SNF, as she continued to have pain and she is unable to ambulate safely. During admission, she was also found to have an AAA. She was evaluated by Vascular Surgeon and follow-up as outpatient was recommended. This morning, the patient was noted to have elevated vital signs by the facility nurse. She was noted to have a fever with a tachycardic rate to the 160s. EMS was activated. She denies chills, generalized weakness, cough, shortness of breath, abdominal pain, chest pain, lightheadedness, dizziness, nausea, vomiting, sore throat, difficultly urinating, flank pain, headache Allergies: Aspirin. Penicillin Past Surgical History: None reported Social History: Current everyday cigarette smoker (approximately 10 cigarettes/ day). No EtOH and recreational drug use. Primary Care Physician: Dr. Manohar Ramirez Neurologist: Dr. Nyla Medina <Pam Zhou - Last Filed: 08/14/16 15:14> <Ganesh Walker - Last Filed: 08/14/16 16:15> - General Stated Complaint: HIGH BLOOD PRESSURE Time Seen by Provider: 08/14/16 10:33 Past History <Pam Zhou - Last Filed: 08/14/16 15:14> - Past Medical History Anemia: No Asthma: No Cancer: No Cardiac Disorders: Yes CVA: No COPD: No CHF: No Dementia: No Diabetes: No GI Disorders: No Disorders: No HTN: Yes Hypercholesterolemia: No Liver Disease: No Seizures: No Thyroid Disease: No - Surgical History Abdominal Surgery: No Appendectomy: No Cardiac Surgery: No Cholecystectomy: No Lung Surgery: No Neurologic Surgery: No Orthopedic Surgery: No - Immunization History Immunization Up to Date: Yes - Psycho/Social/Smoking Cessation Hx Anxiety: No Suicidal Ideation: No Smoking History: Current every day smoker Have you smoked in the past 12 months: Yes Number of Cigarettes Smoked Daily: 10 'Breaking Loose' booklet given: 08/10/16 Hx Alcohol Use: No Drug/Substance Use Hx: No Substance Use Type: None <Ganesh Walker - Last Filed: 08/14/16 16:15> - Past Medical History Allergies/Adverse Reactions: Allergies Allergy/AdvReac Type Severity Reaction Status Date / Time aspirin Allergy Verified 08/14/16 11:33 Penicillins Allergy Verified 08/14/16 11:33 Home Medications: Ambulatory Orders Carbidopa/Levodopa [Carbidopa-Levodopa 25-100 Tab] 1 each PO TID 07/24/16 Diltiazem Cd [Cardizem Cd -] 240 mg PO DAILY 07/24/16 Acetaminophen W/ Codeine #3 [Tylenol # 3 -] 1 tab PO Q4H PRN #30 tablet MDD 3 Heparin - 5,000 unit SQ BID vial 08/13/16 Review of Systems - Review of Systems Constitutional: No: Chills, Fever Respiratory: No: Cough, Shortness of Breath Cardiac (ROS): No: Chest Pain, Lightheadedness, Syncope ABD/GI: No: Nausea, Vomiting Musculoskeletal: Yes: Joint Pain All Other Systems: Reviewed and Negative <Ganesh Walker - Last Filed: 08/14/16 16:15> *Physical Exam - Physical Exam Comments: 08/14/16 11:40 GENERAL: The patient is awake, alert, and fully oriented, in no acute distress. Warm to touch. HEAD: Normal with no signs of trauma. EYES: Pupils equal, round and reactive to light, extraocular movements intact, sclera anicteric, conjunctiva clear with no pallor. ENT: Ears normal, nares patent, oropharynx clear without exudates. Moist mucous membranes. NECK: Normal range of motion, supple without lymphadenopathy, JVD, or masses. LUNGS: Slightly coarse and decreased breath sounds at the left base otherwise good air entry Breath sounds equal, clear to auscultation bilaterally. No wheeze/crackles. HEART: Tachycardic, Regular rate and rhythm, without murmur or rub. ABDOMEN: Soft/nontender/nondistended. BS wnl. No guarding or rebound. No palpable masses. No hepatosplenomegaly. EXTREMITIES: Limited range of motion to the left lower extremity, secondary to recent fracture. No edema. No clubbing or cyanosis. No cords, erythema, or tenderness. NEUROLOGICAL: Cranial nerves II through XII grossly intact. Normal speech. PSYCH: Normal mood, normal affect. SKIN: Warm to touch. Dry, normal turgor, no rashes or lesions noted. <Pam Zhou - Last Filed: 08/14/16 15:14> Heart Score/ECG Review #1 08/14/16 11:43 When compared to previous EKG from 08/10/16, patient was also in atrial fibrillation. No other changes. <Pam Zhou - Last Filed: 08/14/16 15:14> #1 ECG reviewed & interpreted by me at: 11:00 08/14/16 11:28 Atrial flutter at 172, likely rate related ST depression in V2 and V3, otherwise no acute ischemic changes. <Ganesh Walker - Last Filed: 08/14/16 16:15> ED Treatment Course - LABORATORY CBC & Chemistry Diagram: 08/14/16 11:20 08/14/16 11:20 - ADDITIONAL ORDERS Additional order review: Laboratory Results 08/14/16 11:20 VBG pH 7.40 POC VBG pCO2 42.5 POC VBG pO2 37.8 Mixed VBG HCO3 26.0 H - RADIOLOGY Radiograph Interpretation: 08/14/16 15:03 EXAM: US/DUPLEX VASCUL US-2LEGS Interpreted by Dr. Bjorn Reardon IMPRESSION: Rule out DVT Bilateral leg Doppler venous ultrasound Grayscale, pulsed Doppler and color Doppler interrogation of both lower extremities deep venous system was performed. The common femoral vein, superficial femoral vein, popliteal and posterior tibial vein were identified, bilaterally with a normal phasic wave form, adequate compressibility and adequate response to augmentation. Visualized portion of the greater saphenous and deep femoral vein are patent No Gonzalez's cyst is identified in the popliteal fossa, bilaterally. EXAM: US/DUPLEX VASCUL US-2LEGS Interpreted by Dr. Bjorn Reardon IMPRESSION: Rule out DVT Bilateral leg Doppler venous ultrasound Grayscale, pulsed Doppler and color Doppler interrogation of both lower extremities deep venous system was performed. The common femoral vein, superficial femoral vein, popliteal and posterior tibial vein were identified, bilaterally with a normal phasic wave form, adequate compressibility and adequate response to augmentation. Visualized portion of the greater saphenous and deep femoral vein are patent No Gonzalez's cyst is identified in the popliteal fossa, bilaterally. EXAM: RAD/CHEST X-RAY PORTABLE Interpreted by Dr. Fabian Parkinson IMPRESSION: Single portable chest x-ray compared with July 24, 2016. The lungs are well aerated. No evidence of pneumonia atelectasis, pleural effusion or pneumothorax. The cardiac silhouette is not enlarged. Uncoiled thoracic aorta. Midline trachea. Unchanged contour of the superior mediastinum. Intact visualized osseous structures. <Pam Zhou - Last Filed: 08/14/16 15:14> - LABORATORY CBC & Chemistry Diagram: 08/14/16 11:20 08/14/16 11:20 - RADIOLOGY Radiology Studies Ordered: Category Date Time Status CHEST X-RAY PORTABLE* [RAD] Stat Radiology 08/14/16 10:47 Ordered HIP & PELVIS-LEFT [RAD] Stat Radiology 08/14/16 10:48 Ordered <Ganesh Walker - Last Filed: 08/14/16 16:15> Medical Decision Making - Critical Care Time Total Critical Care Time (minutes): 30 Critical Care Statement: The care of this patient involved high complexity decision making to prevent further life threatening deterioration of the patient 's condition and/or to evalute & treat vital organ system(s) failure or risk of failure. - Medical Decision Making 08/14/16 11:28 A portion of this note was documented by scribe services under my direction. I have reviewed the details of the note, within reason, and agree with the documentation with the following case summary and management plan written by me. 72-year-old female with recent admission to the hospital for trochanteric fracture on the left, deemed nonoperable and was discharged to [facility] for rehabilitation, has been off of her Cardizem because was unavailable and presents now with tachycardia. Denies any chest pain or lightheadedness, no vomiting or fevers or chills, her baseline leg pain but otherwise feels well. Tachycardia of 116, rectal temp 99.5. Generally well-appearing, ranging left lower extremity with some difficulty but neurovascularly intact 72-year-old female with tachycardia in the setting of medication noncompliance because unavailable at her current residence. Temp 99.5 rectally, reassuring that this is not necessarily infectious etiology. There are no focal infectious processes on history or physical exam, isolated tachycardia. labs, ua ekg, cxr ivf, rate control reassess 08/14/16 12:38 Labs are within normal limits, white count of 10, baseline normal hemoglobin of 12.4, chemistries are within normal limits including negative troponin. CRP is slightly elevated. Tachycardia controlled with IV Cardizem, she was given her usual oral Cardizem dose following that. She continues to feel well. Will check chest x-ray and left hip x-ray, rule out DVT, monitor heart rate and dispo accordingly. 08/14/16 15:08 CXR wnl, Hip xray with displaced greater troch fracture but no acute change. Doppler shows no DVT. Clinically well, HR improved to 90-100 range. Pt feels well and wants to either be discharged home or to [facility] where Dr. Ramirez works. She refuses to return to [facility]. No indication for hospitalization at this time. Awaiting evaluation/dispo. 08/14/16 15:32 D/W DELORES Ramirez, coordinated transfer to [facility] for further care. Accepted and transportation arranged for 4pm. Patient and family updated but patient now refusing this plan. States she wants to go home and deal with HOT WALKER. Will readdress with SW then discharge. 08/14/16 16:12 Despite recommendations from and medical team, pt refusing admission to [facility] despite being aware of all levels of risk associated with her limited mobility. She will sign out AMA, and family member at bedside will accompany her home. They understand strict return criteria and will set up personal HOT WALKER. <Ganesh Walker - Last Filed: 08/14/16 16:15> *DC/Admit/Observation/Transfer - Attestations Scribe Attestion: 08/14/16 11:43 Documentation prepared by Pam Zhou, acting as manager medical writing for Ganesh Walker MD. <Pam Zhou - Last Filed: 08/14/16 15:14> <Ganesh Walker - Last Filed: 08/14/16 16:15> Diagnosis at time of Disposition: Atrial fibrillation with rapid ventricular response Hip fracture Qualifiers: Encounter type: subsequent encounter Fracture type: closed Laterality: left Fracture healing: with routine healing Qualified Code(s): S72.002D - Fracture of unspecified part of neck of left femur, subsequent encounter for closed fracture with routine healing - Discharge Dispostion Disposition: AGAINST MEDICAL ADVICE Condition at time of disposition: Fair - Referrals Referrals: Manohar Ramirez MD [Primary Care Provider] - Raheem Escalera MD [Staff Physician] - - Patient Instructions Printed Discharge Instructions: DI for Hip Fracture Additional Instructions: Activity as tolerated. Stay hydrated. Your fast heart rate today was likely due to being off of Cardizem. Your heart rate is now controlled, blood tests showed no acute abnormalities. You are in need of rehabilitation therapy secondary to your hip fracture. You have opted to pursue care at home. We recommend you have physical therapy and a home health aide. Please return to the hospital or speak to Dr. Ramirez should you change your mind to follow recommendations. Continue your medications as previously prescribed by your physician. You should follow up with Dr. Ramirez and Dr. Escalera as soon as possible regarding today's emergency department visit. Return to the emergency department for any new or concerning symptoms, particularly persistent or intolerable pain, severe swelling or discoloration, numbness or weakness, palpitations or chest pain.
[2016-08-14 11:35] LABS: BASOPHIL 0.3 % (0-2.0); EOSINOPHIL 0.2 % (0-4.5); MEAN CELL VOLUME 84.8 fl (80-96); MEAN PLT VOLUME 7.5 fl (7.5-11.1); NEUTROPHILS 78.6 % (42.8-82.8); PLATELET COUNT 287 K/MM3 (134-434); RDW 13.1 % (11.6-15.6); WHITE BLOOD COUNT 10.1 K/mm3 (4.0-10.0)
[2016-08-14] MEDS ORDERED: dilTIAZem HCL 125 MG/25 ML - 25 ML VIAL ONE (11:36)
[2016-08-14] MEDS ORDERED: ACETAMINOPHEN INJECTION 100 ML IVPB ONE (11:36)
[2016-08-14 11:38] LABS: VENOUS PH 7.4 (7.32-7.42)
[2016-08-14 11:50] LABS: INR 1.2 (0.82-1.09); PROTHROMBIN TIME (PATIENT) 13.2 SEC (9.98-11.88)
[2016-08-14 11:53] LABS: ACTIVATED PTT 33.8 SECONDS (26.9-34.4)
[2016-08-14 12:00] LABS: ALBUMIN 3.3 g/dl (3.4-5.0); ANION GAP 9 (8-16); CALCIUM 10.1 mg/dL (8.5-10.1); CO2 27 mmol/L (21-32); GLUCOSE,RANDOM 97 mg/dL (74-106)
[2016-08-14 12:03] VITALS: TEMP 99.5; BMI 17.3
[2016-08-14 12:05] LABS: ALK PHOS 101 U/L (45-117); BILIRUBIN,TOTAL 0.5 mg/dL (0.2-1.0); CREATININE 0.7 mg/dL (0.55-1.02); SGOT/AST 14 U/L (15-37); SGPT/ALT 14 U/L (12-78); TOT PROT 8.3 g/dl (6.4-8.2); TROPONIN I < 0.02 ng/ml (0.00-0.05)
[2016-08-14 12:25] VITALS: PULSE 107
--- NOTE | 2016-08-14 12:51 | EKG ---
Test Reason : Blood Pressure : / mmHG Vent. Rate : 172 BPM Atrial Rate : 344 BPM P-R Int : 000 ms QRS Dur : 058 ms QT Int : 250 ms P-R-T Axes : 180 043 038 degrees QTc Int : 422 ms ATRIAL FLUTTER WITH 2:1 A-V CONDUCTION NONSPECIFIC ST ABNORMALITY ABNORMAL ECG WHEN COMPARED WITH ECG OF 10-AUG-2016 14:03, ATRIAL FLUTTER HAS REPLACED ATRIAL FIBRILLATION VENT. RATE HAS INCREASED BY 77 BPM NON-SPECIFIC CHANGE IN ST SEGMENT IN INFERIOR LEADS ST NOW DEPRESSED IN ANTERIOR LEADS Confirmed by LASHAE HERNANDEZ, BROOKLYN ([id number]) on 08/14/2016 12:51:18 PM Referred By: Confirmed By:BROOKLYN BHARDWAJ MD
[2016-08-14 16:02] VITALS: BP 117/60
== END 2016-08-14 16:27 | disposition left against medical advice (07) ==
LOC: JER 10:19
PROC: 3E033NZ Introduction of Analgesics, Hypnotics, Sedatives into Peripheral Vein, Percutaneous Approach (ICD-10-PCS; principal; 2016-08-14)
PROC: 3E033GC Introduction of Other Therapeutic Substance into Peripheral Vein, Percutaneous Approach (ICD-10-PCS; 2016-08-14)
DX: I48.91 Unspecified atrial fibrillation (principal); Z79.01 Long term (current) use of anticoagulants; S72.002D Fracture of unspecified part of neck of left femur, subsequent encounter for closed fracture with routine healing; I10 Essential (primary) hypertension; F17.210 Nicotine dependence, cigarettes, uncomplicated; X58.XXXD Exposure to other specified factors, subsequent encounter
CPT/HCPCS: 36415; 71010-TC; 73523-TC; 80053; 82550; 82803; 83605; 84484; 85025; 85610; 85651; 85730; 86140; 86850; 86900; 86901; 87040; 93005; 93010; 93970-TC; 99284-25

== ENCOUNTER 2016-09-08 15:02 | Emergency (ER) | payer OTHER, MEDICARE ==
[2016-09-08 15:10] VITALS: BMI 17.3
--- NOTE | 2016-09-08 15:41 | PDOC ---
History of Present Illness - General History Source: Patient Exam Limitations: No Limitations - History of Present Illness Initial Comments: 09/08/16 15:57 The patient is a 71 year old female with a significant past medical history of hypertension, arthritis, and dystonia, presenting to the Emergency Department with left foot pain for one week. The patient reports that she was recently admitted to the ED for a hairline hip fracture, discharged on August 11, and has had worsening foot pain since returning home. The patient describes pain and redness to her left heel and toes, which is slightly alleviated by Aleve. She admits that she has had intermittent foot pain prior to the past week, but that it has worsened over this week. She admits that she has been in bed for two weeks, as she has been healing the hairline hip fracture. The patient denies numbness or tingling to the foot. Patient denies fever, cough , and chills. Patient denies nausea, vomiting, and diarrhea. Patient denies neck pain, or back pain. Allergies: aspirin, penicillin PCP: Dr. Manohar Jensen Hx: current cigarette smoker <Ashia Ricardo - Last Filed: 09/08/16 15:56> <Amina Smith - Last Filed: 09/08/16 18:38> - General Chief Complaint: Pain, Acute Stated Complaint: LT FOOT PAIN Time Seen by Provider: 09/08/16 15:41 Past History <Ashia Ricardo - Last Filed: 09/08/16 15:56> - Past Medical History Anemia: No Asthma: No Cancer: No Cardiac Disorders: Yes CVA: No COPD: No CHF: No Dementia: No Diabetes: No GI Disorders: No Disorders: No HTN: Yes Hypercholesterolemia: No Liver Disease: No Seizures: No Thyroid Disease: No - Surgical History Abdominal Surgery: No Appendectomy: No Cardiac Surgery: No Cholecystectomy: No Lung Surgery: No Neurologic Surgery: No Orthopedic Surgery: No - Immunization History Immunization Up to Date: Yes - Psycho/Social/Smoking Cessation Hx Anxiety: No Suicidal Ideation: No Smoking History: Current every day smoker Have you smoked in the past 12 months: Yes Number of Cigarettes Smoked Daily: 10 Information on smoking cessation initiated: No 'Breaking Loose' booklet given: 08/10/16 Hx Alcohol Use: No Drug/Substance Use Hx: No Substance Use Type: None <Amina Smith - Last Filed: 09/08/16 18:38> - Past Medical History Allergies/Adverse Reactions: Allergies Allergy/AdvReac Type Severity Reaction Status Date / Time aspirin Allergy Verified 09/08/16 15:07 Penicillins Allergy Verified 09/08/16 15:07 Home Medications: Ambulatory Orders Carbidopa/Levodopa [Carbidopa-Levodopa 25-100 Tab] 1 each PO TID 07/24/16 Diltiazem Cd [Cardizem Cd -] 240 mg PO DAILY 07/24/16 Review of Systems - Review of Systems Able to Perform ROS?: Yes Comments:: 09/08/16 15:57 CONSTITUTIONAL: Absent: fever, no chills, no fatigue EYES: Absent: visual changes ENT: Absent: ear pain, no sore throat CARDIOVASCULAR: Absent: chest pain, no palpitations RESPIRATORY: Absent: cough, no SOB GI: Absent: abdominal pain, no nausea, no vomiting, no constipation, no diarrhea GENITOURINARY: Absent: dysuria, no frequency, no hematuria MUSCULOSKELETAL: Present: + left heel and toe pain Absent: back pain, no myalgia SKIN: Absent: rash NEURO: Absent: headache <Ashia Ricardo - Last Filed: 09/08/16 15:56> *Physical Exam - Vital Signs Last Vital Signs Temp Pulse Resp BP Pulse Ox 98.0 F 109 H 20 145/75 97 09/08/16 15:07 09/08/16 15:07 09/08/16 15:07 09/08/16 15:07 09/08/16 15:07 - Physical Exam Comments: 09/08/16 15:58 GENERAL: Well-appearing, well-nourished. No apparent distress. HEENT: Normocephalic, atraumatic. PERRL, EOM intact. CARDIOVASCULAR: Normal S1, S2. Regular rate and rhythm. PULMONARY: Clear to auscultation bilaterally. ABDOMEN: Soft, non-distended, non-tender. EXTREMITIES: 1+ dp pulse bilaterally, 2 small wounds to the left lateral heel with surrounding redness of the skin but no warmth. No tenderness over the dorsum of the foot. No tenderness to calf. Normal ROM in all four extremities. No gross deformities. SKIN: Warm, dry. No rash NEUROLOGICAL: No focal neurological deficits. <Ashia Ricardo - Last Filed: 09/08/16 15:56> - Vital Signs Last Vital Signs Temp Pulse Resp BP Pulse Ox 98.0 F 109 H 20 145/75 97 09/08/16 15:07 09/08/16 15:07 09/08/16 15:07 09/08/16 15:07 09/08/16 15:07 <Amina Smith - Last Filed: 09/08/16 18:38> ED Treatment Course - LABORATORY CBC & Chemistry Diagram: 09/08/16 16:03 09/08/16 16:03 <Amina Smith - Last Filed: 09/08/16 18:38> Medical Decision Making - Medical Decision Making 09/08/16 18:10 Pt presents to the ED complaining of a one week history constant of L heel pain and redness. Denies prior history of similar pain, fever or other signs of systemic infection. Denies trauma to the foot. Patient has been mostly in bed secondary to a "hairline" hip fracture, but denies leg swelling or shortness of breath. On exam, patient has symmetric dorsalis pedis pulses. The foot is not warm, but there is a small opening in the skin with surrounding redness and tenderness of the skin. No tenderness over the dorsum of the foot or the calf. Differential includes gout, other arthritis, unlikely infection given lack of systemic symptoms, normal wbc count and xray and lack of erythema. Pain is improved after percoset. Will discharge home. Patient has follow up with her hedis specialist on Friday. 09/08/16 18:36 <Amina Smith - Last Filed: 09/08/16 18:38> *DC/Admit/Observation/Transfer - Attestations Scribe Attestion: 09/08/16 16:00 Documentation prepared by Ashia Ricardo, acting as biomedical equipment support specialist for Amina Smith MD. <Ashia Ricardo - Last Filed: 09/08/16 15:56> - Discharge Dispostion Admit: No <Amina Smith - Last Filed: 09/08/16 18:38> Diagnosis at time of Disposition: Arthritis - Discharge Dispostion Disposition: HOME Condition at time of disposition: Good - Referrals Referrals: Rodolfo Reeves [Primary Care Provider] - - Patient Instructions Printed Discharge Instructions: DI for Arthritis
[2016-09-08] MEDS ORDERED: OXYCODONE/APAP 5/325MG COMBO TABLET PO ONE (15:56)
[2016-09-08] MEDS ORDERED: OXYCODONE/APAP 5/325MG COMBO TABLET ONE (16:08)
[2016-09-08 16:24] LABS: BASOPHIL 0.7 % (0-2.0); EOSINOPHIL 1.5 % (0-4.5); MCH 26.9 pg (25.7-33.7); MCHC 31.8 g/dl (32.0-36.0); MEAN CELL VOLUME 84.6 fl (80-96); MEAN PLT VOLUME 7.6 fl (7.5-11.1); PLATELET COUNT 235 K/MM3 (134-434); RDW 13.9 % (11.6-15.6); WHITE BLOOD COUNT 7.8 K/mm3 (4.0-10.0)
[2016-09-08 16:53] LABS: ALBUMIN 3.4 g/dl (3.4-5.0); ANION GAP 8 (8-16); BILIRUBIN,TOTAL 0.3 mg/dL (0.2-1.0); C-REACTIVE PROTEIN 2.1 MG/DL (0.00-0.3); CALCIUM 9.6 mg/dL (8.5-10.1); CO2 30 mmol/L (21-32); CREATININE 0.5 mg/dL (0.55-1.02); GLUCOSE,RANDOM 122 mg/dL (74-106); SGOT/AST 11 U/L (15-37); SGPT/ALT 7 U/L (12-78); TOT PROT 7.9 g/dl (6.4-8.2)
[2016-09-08 16:54] LABS: ALK PHOS 112 U/L (45-117)
[2016-09-08 18:48] VITALS: BP 142/78; PULSE 92; TEMP 98.4
[2016-09-08 19:12] LABS: ERYTHROCYTE SEDIMENTATION RATE 75 mm/hr (0-30)
== END 2016-09-08 18:48 | disposition home or self-care (01) ==
LOC: JER 15:02
DX: M12.9 Arthropathy, unspecified (principal); S91.302A Unspecified open wound, left foot, initial encounter; X58.XXXA Exposure to other specified factors, initial encounter; Y93.9 Activity, unspecified; Z87.81 Personal history of (healed) traumatic fracture; I10 Essential (primary) hypertension; F17.210 Nicotine dependence, cigarettes, uncomplicated
CPT/HCPCS: 36415; 73630-TC-LT; 80053; 85025; 85651; 86140; 99282-25

== ENCOUNTER 2016-09-26 08:23 | Emergency (ER) | payer MEDICARE, OTHER ==
[2016-09-26 08:31] VITALS: BP 132/63; PULSE 106; TEMP 97.9; BMI 17.4
--- NOTE | 2016-09-26 08:53 | PDOC ---
History of Present Illness <Lamar Novoa - Last Filed: 09/26/16 15:01> - General History Source: Patient, Old Records Exam Limitations: No Limitations - History of Present Illness Initial Comments: 09/26/16 10:25 The patient is a 71-year-old woman, with a significant past medical history of hypertension, arthritis and dystonia who was sent to the emergency department by her PMD Dr. Manohar Ramirez, for skilled nursing placement at [facility], as patient is unable to perform activities of daily living. As per patient, she is feels fine but complains of left foot pain since her hairline hip fracture on August 11rs of this year. She was evaluated in this facility for which she was informed that her left foot pain was due to arthritis. Patient reports that her left foot pain is unbearable. No other complaints, No fever, chills, weakness, cough, shortness of breath, chest pain, weakness/paresthesias to her extremities. Allergies: Aspirin. Penicillin Past Surgical History: None reported. Social History: Current everyday cigarette smoker. No EtOH or recreational drug use. Primary Care Physician: Dr. Manohar Ramirez. <Pam Zhou - Last Filed: 09/26/16 15:49> - General Chief Complaint: Pain Stated Complaint: (PCP SENT) JAIL PLACEMENT,NO OTHER COMPLAI Time Seen by Provider: 09/26/16 08:51 Past History - Past Medical History Anemia: No Asthma: No Cancer: No Cardiac Disorders: Yes CVA: No COPD: No CHF: No Dementia: No Diabetes: No GI Disorders: No Disorders: No HTN: Yes Hypercholesterolemia: No Liver Disease: No Seizures: No Thyroid Disease: No - Surgical History Abdominal Surgery: No Appendectomy: No Cardiac Surgery: No Cholecystectomy: No Lung Surgery: No Neurologic Surgery: No Orthopedic Surgery: No - Immunization History Immunization Up to Date: Yes - Psycho/Social/Smoking Cessation Hx Anxiety: No Suicidal Ideation: No Smoking History: Current every day smoker Have you smoked in the past 12 months: Yes Number of Cigarettes Smoked Daily: 5 Information on smoking cessation initiated: Yes 'Breaking Loose' booklet given: 08/10/16 Hx Alcohol Use: No Drug/Substance Use Hx: No Substance Use Type: None <Lamar Novoa - Last Filed: 09/26/16 15:01> <Pam Zhou - Last Filed: 09/26/16 15:49> - Past Medical History Allergies/Adverse Reactions: Allergies Allergy/AdvReac Type Severity Reaction Status Date / Time aspirin Allergy Verified 09/26/16 08:26 Penicillins Allergy Verified 09/26/16 08:26 Home Medications: Ambulatory Orders Carbidopa/Levodopa [Carbidopa-Levodopa 25-100 Tab] 1 each PO TID 07/24/16 Diltiazem Cd [Cardizem Cd -] 240 mg PO DAILY 07/24/16 Review of Systems - Review of Systems Comments:: 09/26/16 10:25 GENERAL/CONSTITUTIONAL: No fever or chills. No weakness. CARDIOVASCULAR: No chest pain or shortness of breath. RESPIRATORY: No cough, wheezing, or hemoptysis. GASTROINTESTINAL: No nausea, vomiting, diarrhea or constipation. MUSCULOSKELETAL: Yes: Left foot pain. No neck or back pain. SKIN: No rash NEUROLOGIC: No headache, vertigo, loss of consciousness, or change in strength/ sensation. <Pam Zhou - Last Filed: 09/26/16 15:49> *Physical Exam - Vital Signs Last Vital Signs Temp Pulse Resp BP Pulse Ox 97.9 F 106 H 20 132/63 99 09/26/16 08:26 09/26/16 08:26 09/26/16 08:26 09/26/16 08:26 09/26/16 08:26 - Physical Exam Comments: GENERAL: Awake, alert, and fully oriented, in no acute distress HEAD: No signs of trauma EYES: PERRLA, EOMI, sclera anicteric, conjunctiva clear ENT: Auricles normal inspection, hearing grossly normal, nares patent, oropharynx clear without exudates. Dry mucosa NECK: Normal ROM, supple, no lymphadenopathy, JVD, or masses LUNGS: Breath sounds equal, clear to auscultation bilaterally. No wheezes, and no crackles HEART: Regular rate and rhythm, normal S1 and S2, no murmurs, rubs or gallops ABDOMEN: Soft, nontender, normoactive bowel sounds. No guarding, no rebound. No masses EXTREMITIES: +Erythema with cracked skin to the L heel. L heel exquisitely tender to touch. Remainder of extremities with normal range of motion, no edema. No clubbing or cyanosis. No cords. NEUROLOGICAL: Cranial nerves II through XII grossly intact. Garbled speech. Unable to ambulate due to heel pain. SKIN: Warm, Dry, normal turgor, no rashes. <Lamar Novoa - Last Filed: 09/26/16 15:01> - Vital Signs Last Vital Signs Temp Pulse Resp BP Pulse Ox 97.9 F 106 H 20 132/63 99 09/26/16 08:26 09/26/16 08:26 09/26/16 08:26 09/26/16 08:26 09/26/16 08:26 <Pam Zhou - Last Filed: 09/26/16 15:49> ED Treatment Course - LABORATORY CBC & Chemistry Diagram: 09/26/16 09:35 09/26/16 09:35 <Lamar Novoa - Last Filed: 09/26/16 15:01> - LABORATORY CBC & Chemistry Diagram: 09/26/16 09:35 09/26/16 09:35 - ADDITIONAL ORDERS Additional order review: Laboratory Results 09/26/16 09/26/16 09:35 09:35 Sodium 138 Potassium 4.2 D Chloride 104 Carbon Dioxide 28 Anion Gap 6 L BUN 15 Creatinine 0.5 L Creat Clearance w eGFR > 60 Random Glucose 87 D Calcium 10.2 H Phosphorus 3.4 Magnesium 1.6 L Total Bilirubin 0.4 D AST 16 D ALT 13 D Alkaline Phosphatase 93 Total Protein 7.2 Albumin 3.2 L Urine Color Yellow Urine Appearance Clear Urine pH 5.0 Urine Protein Negative Urine Glucose (UA) Negative Urine Ketones Trace H Urine Blood Negative Urine Nitrite Negative Urine Bilirubin Negative Urine Urobilinogen Negative Ur Leukocyte Esterase Trace H Urine RBC 4 Urine WBC 1 Ur Epithelial Cells Rare Urine Bacteria Rare Hyaline Casts 1 Urine Mucus Rare 09/26/16 09:35 RBC 4.27 MCV 84.3 MCHC 32.6 RDW 14.0 MPV 7.2 L Neutrophils % 79.6 Lymphocytes % 13.3 D Monocytes % 6.3 Eosinophils % 0.5 Basophils % 0.3 - RADIOLOGY Radiograph Interpretation: 09/26/16 10:36 EXAM: RAD/CHEST X-RAY PORTABLE Interpreted by Dr. Fabian Parkinson IMPRESSION: Unremarkable contour of the cardiomediastinal silhouette. The lungs are well aerated. No evidence of CHF, pulmonary consolidations. No pneumothorax or pleural effusion is seen. Intact visualized osseous structures. <Pam Zhou - Last Filed: 09/26/16 15:49> Medical Decision Making - Medical Decision Making 09/26/16 13:20 Case d/w Drs. Ramirez and Maryse, as well as case management. She does not meet criteria for inpatient admission at this time. However, she does quality for visiting nurse services. See CM note for details. <Lamar Novoa - Last Filed: 09/26/16 15:01> - Medical Decision Making 09/26/16 10:[address] Ramirez. Immediate response. Case was discussed. <Pam Zhou - Last Filed: 09/26/16 15:49> *DC/Admit/Observation/Transfer - Discharge Dispostion Admit: No <Lamar Novoa - Last Filed: 09/26/16 15:01> - Attestations Scribe Attestion: 09/26/16 10:25 Documentation prepared by Pam Zhou, acting as medical doctor nuclear medicine for Lamar Novoa MD. <Pam Zhou - Last Filed: 09/26/16 15:49> Diagnosis at time of Disposition: Heel pain Qualifiers: Laterality: left Qualified Code(s): M79.672 - Pain in left foot - Discharge Dispostion Disposition: HOME Condition at time of disposition: Stable - Referrals Referrals: Manohar Ramirez MD [Primary Care Provider] - - Patient Instructions Printed Discharge Instructions: DI for Pressure Sores
[2016-09-26 09:56] LABS: BASOPHIL 0.3 % (0-2.0); EOSINOPHIL 0.5 % (0-4.5); MCH 27.5 pg (25.7-33.7); MCHC 32.6 g/dl (32.0-36.0); MEAN CELL VOLUME 84.3 fl (80-96); MEAN PLT VOLUME 7.2 fl (7.5-11.1); NEUTROPHILS 79.6 % (42.8-82.8); PLATELET COUNT 265 K/MM3 (134-434); WHITE BLOOD COUNT 11.1 K/mm3 (4.0-10.0)
[2016-09-26 10:06] LABS: URINE APPEARANCE CLEAR; URINE BILIRUBIN NEGATIVE (NEGATIVE); URINE BLOOD NEGATIVE (NEGATIVE); URINE COLOR YELLOW; URINE GLUCOSE (UA) NEGATIVE (NEGATIVE); URINE KETONE TRACE (NEGATIVE); URINE NITRITE NEGATIVE (NEGATIVE); URINE PROTEIN NEGATIVE (NEGATIVE); URINE UROBILINOGEN NEGATIVE E.U./dl (0.2-1.0)
[2016-09-26 10:07] LABS: URINE LEUK ESTERASE TRACE (NEGATIVE)
[2016-09-26 10:19] LABS: URINE BACTERIA RARE /hpf (NONE SEEN); URINE HYALINE CAST 1 /lpf; URINE MUCUS RARE; URINE RBC 4 /hpf (0-3); URINE WBC 1 /hpf (3-5)
[2016-09-26 10:20] LABS: ALBUMIN 3.2 g/dl (3.4-5.0); ANION GAP 6 (8-16); BILIRUBIN,TOTAL 0.4 mg/dL (0.2-1.0); CALCIUM 10.2 mg/dL (8.5-10.1); CO2 28 mmol/L (21-32); CREATININE 0.5 mg/dL (0.55-1.02); GLUCOSE,RANDOM 87 mg/dL (74-106); MAGNESIUM 1.6 mg/dL (1.8-2.4); PHOSPHOROUS 3.4 mg/dL (2.5-4.9); SGOT/AST 16 U/L (15-37); SGPT/ALT 13 U/L (12-78)
[2016-09-26 10:21] LABS: ALK PHOS 93 U/L (45-117); TOT PROT 7.2 g/dl (6.4-8.2)
[2016-09-26] MEDS ORDERED: ACETAMINOPHEN WITH CODEINE 300MG/30MG TABLET PO ONE (10:29)
[2016-09-26] MEDS ORDERED: NAPROXEN 250 MG TABLET (FP) PO ONE (10:29)
[2016-09-26] MEDS ORDERED: NAPROXEN 500 MG TABLET (FP) ONE (10:45)
[2016-09-26] MEDS ORDERED: ACETAMINOPHEN WITH CODEINE 300MG/30MG TABLET ONE (10:45)
--- NOTE | 2016-09-26 11:21 | EKG ---
Test Reason : Blood Pressure : / mmHG Vent. Rate : 094 BPM Atrial Rate : 094 BPM P-R Int : 140 ms QRS Dur : 082 ms QT Int : 328 ms P-R-T Axes : 062 020 040 degrees QTc Int : 410 ms POOR DATA QUALITY, INTERPRETATION MAY BE ADVERSELY AFFECTED NORMAL SINUS RHYTHM NORMAL ECG WHEN COMPARED WITH ECG OF 14-AUG-2016 11:00, SINUS RHYTHM HAS REPLACED ATRIAL FLUTTER VENT. RATE HAS DECREASED BY 78 BPM NON-SPECIFIC CHANGE IN ST SEGMENT IN INFERIOR LEADS ST NO LONGER DEPRESSED IN ANTERIOR LEADS Confirmed by MARCOS HICKMAN MD ([id number]) on 09/26/2016 11:20:55 AM Referred By: Confirmed By:MARCOS HICKMAN MD
== END 2016-09-26 13:20 | disposition home or self-care (01) ==
LOC: JER 08:23
DX: M79.673 Pain in unspecified foot (principal); M13.872 Other specified arthritis, left ankle and foot; I10 Essential (primary) hypertension; G24.9 Dystonia, unspecified; F17.210 Nicotine dependence, cigarettes, uncomplicated
CPT/HCPCS: 36415; 71010-TC; 80053; 81003; 81015; 83735; 84100; 85025; 87086; 93005; 93010; 99282-25

== ENCOUNTER 2016-10-18 14:34 | Inpatient (IN) | payer MEDICARE, OTHER ==
[2016-10-18] MEDS ORDERED: morphine CARPU-JECT 4 MG/1 ML DISP.SYRIN IVPUSH ONE (15:52)
[2016-10-18 16:19] LABS: BASOPHIL 0.6 % (0-2.0); EOSINOPHIL 0.8 % (0-4.5); MCH 26.8 pg (25.7-33.7); MEAN PLT VOLUME 7.5 fl (7.5-11.1); NEUTROPHILS 75.4 % (42.8-82.8); PLATELET COUNT 292 K/MM3 (134-434); RDW 14.5 % (11.6-15.6)
[2016-10-18] MEDS ORDERED: morphine CARPU-JECT 4 MG/1 ML DISP.SYRIN ONE (16:34)
[2016-10-18 16:36] LABS: INR 1.21 (0.82-1.09); PROTHROMBIN TIME (PATIENT) 13.4 SEC (9.98-11.88)
[2016-10-18 16:39] LABS: ACTIVATED PTT 36.3 SECONDS (26.9-34.4)
[2016-10-18 16:45] LABS: ALBUMIN 2.9 g/dl (3.4-5.0); ANION GAP 8 (8-16); BILIRUBIN,TOTAL 0.3 mg/dL (0.2-1.0); CALCIUM 9.9 mg/dL (8.5-10.1); CO2 29 mmol/L (21-32); CREATININE 0.3 mg/dL (0.55-1.02); GLUCOSE,RANDOM 88 mg/dL (74-106); SGOT/AST 18 U/L (15-37); SGPT/ALT 17 U/L (12-78); TOT PROT 7.1 g/dl (6.4-8.2)
[2016-10-18 16:46] LABS: ALK PHOS 78 U/L (45-117)
--- NOTE | 2016-10-18 16:57 | PDOC ---
History of Present Illness - General History Source: Patient Exam Limitations: No Limitations - History of Present Illness Initial Comments: 10/18/16 16:51 71 yo F with h/o HTN with recent left hip fracture, no surgery here with c/o left leg pain, and wounds on left fourth toe and heel. started 3 weeks ago. today saw dr. martínez, sent to ed for amdmission. no fc . pain severe, no mod factors. pcp dr. ramirez. <Amie Mak - Last Filed: 10/18/16 16:51> <Elizabeth Huitron - Last Filed: 10/18/16 18:39> <Lamar Novoa - Last Filed: 10/19/16 01:06> - General Chief Complaint: Wound Infection Stated Complaint: Wound Infection Past History - Past Medical History Anemia: No Asthma: No Cancer: No Cardiac Disorders: Yes CVA: No COPD: No CHF: No Dementia: No Diabetes: No GI Disorders: No Disorders: No HTN: Yes Hypercholesterolemia: No Liver Disease: No Seizures: No Thyroid Disease: No - Surgical History Abdominal Surgery: No Appendectomy: No Cardiac Surgery: No Cholecystectomy: No Lung Surgery: No Neurologic Surgery: No Orthopedic Surgery: No - Immunization History Immunization Up to Date: Yes - Psycho/Social/Smoking Cessation Hx Anxiety: No Suicidal Ideation: No Smoking History: Current every day smoker Have you smoked in the past 12 months: Yes Number of Cigarettes Smoked Daily: 5 Information on smoking cessation initiated: No 'Breaking Loose' booklet given: 08/10/16 Hx Alcohol Use: No Drug/Substance Use Hx: No Substance Use Type: None <Amie Mak - Last Filed: 10/18/16 16:51> <Elizabeth Huitron - Last Filed: 10/18/16 18:39> <Lamar Novoa - Last Filed: 10/19/16 01:06> - Past Medical History Allergies/Adverse Reactions: Allergies Allergy/AdvReac Type Severity Reaction Status Date / Time aspirin Allergy Verified 10/18/16 14:51 Penicillins Allergy Verified 10/18/16 14:51 Home Medications: Ambulatory Orders Carbidopa/Levodopa [Carbidopa-Levodopa 25-100 Tab] 1 each PO TID 07/24/16 Diltiazem Cd [Cardizem Cd -] 240 mg PO DAILY 07/24/16 Acetaminophen W/ Codeine #3 [Tylenol # 3 -] 1 tab PO Q6H 10/18/16 Multivit-Min/Iron/Folic/Lutein [Centrum Silver Women Tablet] 1 each PO DAILY Naproxen Sodium [Aleve] 220 mg PO QID PRN 10/18/16 Review of Systems - Review of Systems Constitutional: No: Chills, Diaphoresis Respiratory: No: Cough, Orthopnea Cardiac (ROS): No: Chest Pain, Edema ABD/GI: No: See HPI, Abdominal Distended Musculoskeletal: Yes: Joint Pain. No: Back Pain, Gout Integumentary: Yes: Change in Color Neurological: Yes: Numbness, Paresthesia. No: Headache All Other Systems: Reviewed and Negative <Amie Mak - Last Filed: 10/18/16 16:51> *Physical Exam - Vital Signs Last Vital Signs Temp Pulse Resp BP Pulse Ox 98.2 F 85 19 152/75 97 10/18/16 14:51 10/18/16 14:51 10/18/16 14:51 10/18/16 14:51 10/18/16 14:51 - Physical Exam General Appearance: Yes: Nourished Neck: positive: Trachea midline Respiratory/Chest: positive: Lungs Clear, Normal Breath Sounds Cardiovascular: positive: Regular Rhythm, Regular Rate, S1, S2. negative: Edema , JVD Gastrointestinal/Abdominal: positive: Normal Bowel Sounds, Flat, Soft. negative : Tender Musculoskeletal: negative: CVA Tenderness Extremity: positive: Coldness, Other (left foot with gangrenous fourth toe, and heel, cool to touch. unpalp pulses. . right foot wwp. ) Neurologic: positive: Fully Oriented <Amie Mak - Last Filed: 10/18/16 16:51> - Vital Signs Last Vital Signs Temp Pulse Resp BP Pulse Ox 98.2 F 85 19 152/75 97 10/18/16 14:51 10/18/16 14:51 10/18/16 14:51 10/18/16 14:51 10/18/16 14:51 <Elizabeth Huitron - Last Filed: 10/18/16 18:39> - Vital Signs Last Vital Signs Temp Pulse Resp BP Pulse Ox 98.2 F 85 19 152/75 97 10/18/16 14:51 10/18/16 14:51 10/18/16 14:51 10/18/16 14:51 10/18/16 14:51 <Lamar Novoa - Last Filed: 10/19/16 01:06> Heart Score/ECG Review #1 General ECG Interpretation: Sinus Rhythm, Normal Rate (TWI V1), Normal Intervals , No acute ischemic changes <Amie Mak - Last Filed: 10/18/16 16:51> ED Treatment Course - LABORATORY CBC & Chemistry Diagram: 10/18/16 15:54 10/18/16 15:54 - ADDITIONAL ORDERS Additional order review: Laboratory Results 10/18/16 10/18/16 15:54 15:54 INR 1.21 H PTT (Actin FS) 36.3 H Lactic Acid 1.0 10/18/16 15:54 RBC 3.71 MCV 84.0 MCHC 32.0 RDW 14.5 MPV 7.5 Neutrophils % 75.4 Lymphocytes % 16.2 D Monocytes % 7.0 Eosinophils % 0.8 Basophils % 0.6 - RADIOLOGY Radiology Studies Ordered: Category Date Time Status ABDOMEN CTA AOR & BLE RUNOFF [CT] Stat CT Scan 10/18/16 15:51 Ordered CHEST X-RAY PORTABLE* [RAD] Stat Radiology 10/18/16 15:53 Taken - Medications Given in the ED: ED Medications Discontinued Medications Generic Name Dose Route Start Last Admin Trade Name Freq PRN Reason Stop Dose Admin Morphine Sulfate 4 mg 10/18/16 15:52 10/18/16 16:37 Morphine Injection - IVPUSH 10/18/16 15:53 4 mg ONCE ONE Administration <Amie Mak - Last Filed: 10/18/16 16:51> - LABORATORY CBC & Chemistry Diagram: 10/18/16 15:54 10/18/16 15:54 - ADDITIONAL ORDERS Additional order review: Laboratory Results 10/18/16 10/18/16 10/18/16 15:54 15:54 15:54 INR 1.21 H PTT (Actin FS) 36.3 H Sodium 140 Potassium 3.9 Chloride 103 Carbon Dioxide 29 Anion Gap 8 BUN 11 D Creatinine 0.3 L D Creat Clearance w eGFR > 60 Random Glucose 88 Lactic Acid 1.0 Calcium 9.9 Total Bilirubin 0.3 D AST 18 ALT 17 D Alkaline Phosphatase 78 Total Protein 7.1 Albumin 2.9 L 10/18/16 15:54 RBC 3.71 MCV 84.0 MCHC 32.0 RDW 14.5 MPV 7.5 Neutrophils % 75.4 Lymphocytes % 16.2 D Monocytes % 7.0 Eosinophils % 0.8 Basophils % 0.6 - Medications Given in the ED: ED Medications Discontinued Medications Generic Name Dose Route Start Last Admin Trade Name Freq PRN Reason Stop Dose Admin Morphine Sulfate 4 mg 10/18/16 15:52 10/18/16 16:37 Morphine Injection - IVPUSH 10/18/16 15:53 4 mg ONCE ONE Administration <Elizabeth Huitron - Last Filed: 10/18/16 18:39> - LABORATORY CBC & Chemistry Diagram: 10/18/16 15:54 10/18/16 15:54 - ADDITIONAL ORDERS Additional order review: Laboratory Results 10/18/16 10/18/16 10/18/16 15:54 15:54 15:54 INR 1.21 H PTT (Actin FS) 36.3 H Sodium 140 Potassium 3.9 Chloride 103 Carbon Dioxide 29 Anion Gap 8 BUN 11 D Creatinine 0.3 L D Creat Clearance w eGFR > 60 Random Glucose 88 Lactic Acid 1.0 Calcium 9.9 Total Bilirubin 0.3 D AST 18 ALT 17 D Alkaline Phosphatase 78 Total Protein 7.1 Albumin 2.9 L 10/18/16 15:54 RBC 3.71 MCV 84.0 MCHC 32.0 RDW 14.5 MPV 7.5 Neutrophils % 75.4 Lymphocytes % 16.2 D Monocytes % 7.0 Eosinophils % 0.8 Basophils % 0.6 - Medications Given in the ED: ED Medications Discontinued Medications Generic Name Dose Route Start Last Admin Trade Name Freq PRN Reason Stop Dose Admin Morphine Sulfate 4 mg 10/18/16 15:52 10/18/16 16:37 Morphine Injection - IVPUSH 10/18/16 15:53 4 mg ONCE ONE Administration <Lamar Novoa - Last Filed: 10/19/16 01:06> Medical Decision Making - Medical Decision Making 10/18/16 16:58 71 yo F h/o HTN, here with worsening left leg pain, concerns for ischemia. and pulses foot. d/w dr martínez, believes chronic ischemia, has had for weeks. no heparin at this time. recommend ct angio aorta with run off. pain control. abx. will d/w dr ramirez. will require admission. abx. <Amie Mak - Last Filed: 10/18/16 16:51> - Medical Decision Making 10/18/16 17:43 Dr. Ramirez was paged and notified via phone service. Second call was placed at 18:40 <Elizabeth Huitron - Last Filed: 10/18/16 18:39> - Medical Decision Making Paged Dr. Ramirez's service for admission, they are admitting to hospitalist. Will admit to hospitalist service. <Lamar Novoa - Last Filed: 10/19/16 01:06> *DC/Admit/Observation/Transfer <Amie Mak - Last Filed: 10/18/16 16:51> <Elizabeth Huitron - Last Filed: 10/18/16 18:39> - Discharge Dispostion Admit: Yes <Lamar Novoa - Last Filed: 10/19/16 01:06> Diagnosis at time of Disposition: Gangrene, Ischemic leg - Discharge Dispostion Condition at time of disposition: Guarded - Referrals
[2016-10-18] MEDS ORDERED: diazePAM CARPU-JECT 10 MG/2 ML DISP.SYRIN IVPUSH ONE (19:09)
[2016-10-18] MEDS ORDERED: diazePAM CARPU-JECT 10 MG/2 ML DISP.SYRIN ONE (19:51)
--- NOTE | 2016-10-18 20:01 | HP ---
CHIEF COMPLAINT: "My L leg hurts" PCP: Dr Ramirez HISTORY OF PRESENT ILLNESS: This is a 71 yo F with PMH of PAD, HTN and parkinsons (frequent falls), as well as recent L hip fracture (no surgery here), who presents due to L foot pain , and wounds on left fourth toe. Symptoms started 3 w ago after she dropped a shelf on her foot. There were mild abrasions that never seemed to heal and her 4th toe gradually turned black. She complains of 7/10 foot pain, localized over all of her toes as well as pain in L calf. She denies alleviating or aggravating factors. She denies f/c or malaise. Today she saw Dr. Escalera for hip fracture f/u who saw her foot and instructed her to report to Wound Care where Dr Wiggins saw her and referred to ED. She denies calf cramps when she walks, sob, cough or chest pain. She denies abd pain, n/v, diarrhea, constipation, melena, hematochezia, dysuria. She reports frequent falls due to parkinsons. She also reports lack of appetite and weight loss over the past year ER course was notable for: (1)labs (2)ekg, cxr, cta LE with runoff (3)valium, morphine Recent Travel: denies PAST MEDICAL HISTORY: as above PAST SURGICAL HISTORY: as above Social History: lives with Smoking: heavy smoker x 50 yrs Alcohol: denies Drugs: denies Family History: htn Allergies aspirin Allergy (Verified 10/18/16 14:51) Penicillins Allergy (Verified 10/18/16 14:51) HOME MEDICATIONS: Home Medications Medication Instructions Recorded Carbidopa/Levodopa 1 each PO TID 07/24/16 [Carbidopa-Levodopa 25-100 Tab] Diltiazem Cd [Cardizem Cd -] 240 mg PO DAILY 07/24/16 REVIEW OF SYSTEMS CONSTITUTIONAL: Absent: fever, chills HEENT: Absent: rhinorrhea, nasal congestion, throat pain, CARDIOVASCULAR: Absent: chest pain, syncope, palpitations RESPIRATORY: Absent: cough, shortness of breath, dyspnea with exertion, orthopnea, wheezing, stridor, hemoptysis GASTROINTESTINAL: Absent: abdominal pain, abdominal distension, nausea, vomiting, diarrhea, constipation, melena, hematochezia GENITOURINARY: Absent: dysuria, flank pain MUSCULOSKELETAL: Absent: myalgia, arthralgia SKIN: Absent: rash, itching, pallor HEMATOLOGIC/IMMUNOLOGIC: Absent: easy bleeding, easy bruising ENDOCRINE: Absent: heat intolerance, cold intolerance NEUROLOGIC: Absent: headache, focal weakness or paresthesias PSYCHIATRIC: Absent: anxiety, depression PHYSICAL EXAMINATION Vital Signs - 24 hr 10/18/16 14:51 Temperature 98.2 F Pulse Rate 85 Respiratory 19 Rate Blood Pressure 152/75 O2 Sat by Pulse 97 Oximetry (%) GENERAL: Awake, alert, and fully oriented, in no acute distress, cachectic HEAD: Normal with no signs of trauma. EYES: Pupils equal, round and reactive to light, extraocular movements intact, sclera anicteric, conjunctiva clear. No lid lag. EARS, NOSE, THROAT: Ears normal, nares patent, oropharynx clear without exudates. Moist mucous membranes. NECK: supple without JVD LUNGS: Breath sounds equal, clear to auscultation bilaterally HEART: Regular rate and rhythm, normal S1 and S2 ABDOMEN: Soft, nontender, not distended, normoactive bowel sounds, no guarding, no rebound, no masses. No hepatomegaly or splenomegaly. MUSCULOSKELETAL: No CVA tenderness. UPPER EXTREMITIES: 2+ pulses, warm, well-perfused. No cyanosis, mild clubbing, No peripheral edema. LOWER EXTREMITIES: pulses (DP PT) not palpable b/l. L foot cool, 4 toe dry gangrene, crusted over abrasion on dorsal aspect of all toes, dark red discoloratio of all other toes and tenderness, mild edema of foot, L calf tendernes. R foot normal color, no calf tenderness, no lesions. NEUROLOGICAL: Cranial nerves II-XII intact. slurred speech due to benzo administration, move all extremities PSYCHIATRIC: Cooperative. Good eye contact. Appropriate mood and affect. SKIN: Warm, dry, lesions as above Laboratory Results - last 24 hr 10/18/16 10/18/16 10/18/16 15:54 15:54 15:54 WBC 13.0 H RBC 3.71 Hgb 10.0 L D Hct 31.2 L MCV 84.0 MCH 26.8 MCHC 32.0 RDW 14.5 Plt Count 292 MPV 7.5 Neutrophils % 75.4 Lymphocytes % 16.2 D Monocytes % 7.0 Eosinophils % 0.8 Basophils % 0.6 INR PTT (Actin FS) Sodium 140 Potassium 3.9 Chloride 103 Carbon Dioxide 29 Anion Gap 8 BUN 11 D Creatinine 0.3 L D Creat Clearance w eGFR > 60 Random Glucose 88 Lactic Acid 1.0 Calcium 9.9 Total Bilirubin 0.3 D AST 18 ALT 17 D Alkaline Phosphatase 78 Total Protein 7.1 Albumin 2.9 L 10/18/16 15:54 WBC RBC Hgb Hct MCV MCH MCHC RDW Plt Count MPV Neutrophils % Lymphocytes % Monocytes % Eosinophils % Basophils % INR 1.21 H PTT (Actin FS) 36.3 H Sodium Potassium Chloride Carbon Dioxide Anion Gap BUN Creatinine Creat Clearance w eGFR Random Glucose Lactic Acid Calcium Total Bilirubin AST ALT Alkaline Phosphatase Total Protein Albumin ASSESSMENT/PLAN: This is a 71 yo F with PMH of PAD and HTN, as well as recent L hip fracture ( no surgery here), who presents due to L foot pain, and wounds on left fourth toe and heel. R 4th toe dry gangrene -not acute -does not meet SIRS criteria -no evidence of abscess, no drainage. -no abx coverage required at this time -f/u CTA RLE w runoff to assess vessel patency and possible osteo -F/u Dr Wiggins for further mgmt, patient likely needs angioplasty, amputation -LLE duplex -NPO after midnight HTN -resume cardizem Parkinsons -fall precautions -resume carbidopa/levodopa FEN NS @ 75 s/p IV contrast lytes stable Na restricted diet ppx not indicated, expect short stay Dispo: adm med susana Problem List - Problem (1) Gangrene Code(s): I96 - GANGRENE, NOT ELSEWHERE CLASSIFIED (2) Ischemic leg Code(s): I99.8 - OTHER DISORDER OF CIRCULATORY SYSTEM (3) HTN (hypertension) Code(s): I10 - ESSENTIAL (PRIMARY) HYPERTENSION (4) Parkinson disease Code(s): G20 - PARKINSON'S DISEASE Visit type - Emergency Visit Emergency Visit: Yes ED Registration Date: 10/18/16 Care time: The patient presented to the Emergency Department on the above date and was hospitalized for further evaluation of their emergent condition. - New Patient This patient is new to me today: Yes Date on this admission: 10/18/16 - Critical Care Critical Care patient: No
[2016-10-18] MEDS ORDERED: ACETAMINOPHEN 325 MG TABLET (FP) PO PRN (20:45)
[2016-10-18] MEDS: SODIUM CHLORIDE 1,000 ML IV SCH (21:03)
[2016-10-18 21:44] LABS: INR 1.24 (0.82-1.09); PROTHROMBIN TIME (PATIENT) 13.7 SEC (9.98-11.88)
--- NOTE | 2016-10-18 22:09 | PN ---
Teaching Attending Note Name of Resident: Isis Sotomayor ATTENDING PHYSICIAN STATEMENT I saw and evaluated the patient. I reviewed the resident's note and discussed the case with the resident. I agree with the resident's findings and plan as documented. SUBJECTIVE: This is a 71 yo Female with PMHx of PAD, HTN and parkinsons with hx of ( frequent falls),had a recent L hip fracture Follows and was in his office and was found to have L foot pain, and left fourth toe gangrenous and was send to 's office then to ED. for further evaluation. Patient does not recall any incidence of banging her toe anywhere. Has had the 4rth left toe gangrenous around 4 weeks as per patient. OBJECTIVE: Vital Signs Temperature 98.6 F 10/18/16 19:10 Pulse Rate 75 10/18/16 19:10 Respiratory Rate 16 10/18/16 19:10 Blood Pressure 146/65 10/18/16 19:10 O2 Sat by Pulse Oximetry (%) 98 10/18/16 19:10 CBCD WBC 13.0 K/mm3 (4.0-10.0) H 10/18/16 15:54 RBC 3.71 M/mm3 (3.60-5.2) 10/18/16 15:54 Hgb 10.0 GM/dL (10.7-15.3) L D 10/18/16 15:54 Hct 31.2 % (32.4-45.2) L 10/18/16 15:54 MCV 84.0 fl (80-96) 10/18/16 15:54 MCHC 32.0 g/dl (32.0-36.0) 10/18/16 15:54 RDW 14.5 % (11.6-15.6) 10/18/16 15:54 Plt Count 292 K/MM3 (134-434) 10/18/16 15:54 MPV 7.5 fl (7.5-11.1) 10/18/16 15:54 CMP Sodium 140 mmol/L (136-145) 10/18/16 15:54 Potassium 3.9 mmol/L (3.5-5.1) 10/18/16 15:54 Chloride 103 mmol/L (98-107) 10/18/16 15:54 Carbon Dioxide 29 mmol/L (21-32) 10/18/16 15:54 Anion Gap 8 (8-16) 10/18/16 15:54 BUN 11 mg/dL (7-18) D 10/18/16 15:54 Creatinine 0.3 mg/dL (0.55-1.02) L D 10/18/16 15:54 Creat Clearance w eGFR > 60 (>60) 10/18/16 15:54 Random Glucose 88 mg/dL (74-106) 10/18/16 15:54 Calcium 9.9 mg/dL (8.5-10.1) 10/18/16 15:54 Total Bilirubin 0.3 mg/dL (0.2-1.0) D 10/18/16 15:54 AST 18 U/L (15-37) 10/18/16 15:54 ALT 17 U/L (12-78) D 10/18/16 15:54 Alkaline Phosphatase 78 U/L (45-117) 10/18/16 15:54 Total Protein 7.1 g/dl (6.4-8.2) 10/18/16 15:54 Albumin 2.9 g/dl (3.4-5.0) L 10/18/16 15:54 Current Medications Generic Name Dose Route Start Last Admin Trade Name Freq PRN Reason Stop Dose Admin Acetaminophen 650 mg 10/18/16 20:45 Tylenol - PO Q4H PRN FEVER OR PAIN Carbidopa/Levodopa 1 each 10/18/16 22:00 Sinemet 25/100 - PO TID MELANY Diltiazem HCl 240 mg 10/19/16 10:00 Cardizem Cd - PO DAILY MELANY Sodium Chloride 1,000 mls @ 83 mls/hr 10/18/16 20:45 10/18/16 21:03 Normal Saline - IV 83 mls/hr ASDIR MELANY Administration Morphine Sulfate 2 mg 10/18/16 20:45 Morphine Injection - IVPUSH Q4H PRN PAIN LEVEL 6-10 Home Medications Medication Instructions Recorded Carbidopa/Levodopa 1 each PO TID 07/24/16 [Carbidopa-Levodopa 25-100 Tab] Diltiazem Cd [Cardizem Cd -] 240 mg PO DAILY 07/24/16 PE: Per resident's note LLE: Dry gangrenous of left toe, Left foot cooler than right foot. Duplex of LLE: No DVT ASSESSMENT AND PLAN: This is a 71 yo F with PMH of PAD and HTN, as well as recent L hip fracture ( no surgery here), who presents due to L foot pain, and wounds on left fourth toe and heel. 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 Ordered CTA of both LE w runoff to assess vessel patency and possible osteo. NPO after midnight will hydrate the patient since had IV contrast. IVF at 83 cc/hr. # HTN Uncotrolled resume cardizem # Hx of Parkinsons fall precautions , continue Sinemet DVT Px: Heparin sq
[2016-10-18] MEDS: morphine CARPU-JECT 4 MG/1 ML DISP.SYRIN IVPUSH PRN (22:58)
[2016-10-18] MEDS: CARBIDOPA/LEVODOPA 25/100 TABLET (FP) PO SCH (23:11)
[2016-10-18] MEDS: HEPARIN NA (PORCINE) 5,000 UNITS/ML 1ML VIAL SQ SCH (23:15)
[2016-10-19] MEDS ORDERED: morphine CARPU-JECT 2 MG/1 ML DISP.SYRIN IVPUSH ONE (00:55)
[2016-10-19] MEDS ORDERED: diazePAM 2 MG TABLET PO ONE (00:56)
[2016-10-19] MEDS ORDERED: morphine CARPU-JECT 4 MG/1 ML DISP.SYRIN IVPUSH ONE (02:00)
[2016-10-19] MEDS: morphine CARPU-JECT 4 MG/1 ML DISP.SYRIN IVPUSH PRN ×5 (02:09→20:40)
[2016-10-19 03:42] VITALS: BMI 16.5
[2016-10-19] MEDS: CARBIDOPA/LEVODOPA 25/100 TABLET (FP) PO SCH ×3 (05:42→21:49)
[2016-10-19 07:49] LABS: BASOPHIL 0.4 % (0-2.0); EOSINOPHIL 1.3 % (0-4.5); MCH 27.5 pg (25.7-33.7); MCHC 32.8 g/dl (32.0-36.0); MEAN CELL VOLUME 83.9 fl (80-96); MEAN PLT VOLUME 7.7 fl (7.5-11.1); NEUTROPHILS 67.1 % (42.8-82.8); PLATELET COUNT 278 K/MM3 (134-434); RDW 14.4 % (11.6-15.6)
[2016-10-19 08:08] LABS: ALBUMIN 2.6 g/dl (3.4-5.0); ANION GAP 9 (8-16); CALCIUM 9.5 mg/dL (8.5-10.1); CO2 27 mmol/L (21-32); CREATININE 0.2 mg/dL (0.55-1.02); GLUCOSE,RANDOM 84 mg/dL (74-106); MAGNESIUM 1.6 mg/dL (1.8-2.4); PHOSPHOROUS 3.4 mg/dL (2.5-4.9); SGOT/AST 22 U/L (15-37); SGPT/ALT < 6 U/L (12-78)
[2016-10-19 08:11] LABS: ALK PHOS 78 U/L (45-117); BILIRUBIN,TOTAL 0.4 mg/dL (0.2-1.0); TOT PROT 6.8 g/dl (6.4-8.2)
[2016-10-19] MEDS: HEPARIN NA (PORCINE) 5,000 UNITS/ML 1ML VIAL SQ SCH ×4 (10:22→21:55)
[2016-10-19] MEDS: SODIUM CHLORIDE 1,000 ML IV SCH ×2 (12:09→20:46)
--- NOTE | 2016-10-19 16:14 | PN ---
Progress Note (short form) - Note Progress Note: Continues to have pain No fever O/E Heart regular Liungs clear Abd soft Ext right leg is warm and normal Left foot is slightly col and has distal and dorsal discoloration of some toes and the heel Vital Signs Period Temp Pulse Resp BP Sys/Watkins Pulse Ox Last 24 Hr 97.1 F-98.7 F 74-111 16-18 139-158/65-71 98-100 Current Medications Acetaminophen (Tylenol -) 650 mg PO Q4H PRN PRN Reason: FEVER OR PAIN Last Admin: 10/19/16 06:58 Dose: 650 mg Acetaminophen/Codeine Phosphate (Tylenol # 3 -) 1 tab PO Q4H PRN Carbidopa/Levodopa (Sinemet 25/100 -) 1 each PO TID MELANY Last Admin: 10/19/16 14:25 Dose: 1 each Diltiazem HCl (Cardizem Cd -) 240 mg PO DAILY [facility] Last Admin: 10/19/16 10:21 Dose: 240 mg Heparin Sodium (Porcine) (Heparin -) 5,000 unit SQ BID MELANY Last Admin: 10/19/16 12:10 Dose: 5,000 unit Sodium Chloride (Normal Saline -) 1,000 mls @ 83 mls/hr IV ASDIR MELANY Last Admin: 10/19/16 12:09 Dose: 83 mls/hr Morphine Sulfate (Morphine Injection -) 2 mg IVPUSH Q4H PRN PRN Reason: PAIN LEVEL 6-10 Last Admin: 10/19/16 14:23 Dose: 2 mg Vital Signs Period Temp Pulse Resp BP Sys/Watkins Pulse Ox Last 24 Hr 97.1 F-98.7 F 74-111 16-18 139-158/65-71 98-100 Laboratory Results - last 24 hr 10/18/16 10/18/16 10/18/16 15:54 15:54 15:54 WBC 13.0 H RBC 3.71 Hgb 10.0 L D Hct 31.2 L MCV 84.0 MCH 26.8 MCHC 32.0 RDW 14.5 Plt Count 292 MPV 7.5 Neutrophils % 75.4 Lymphocytes % 16.2 D Monocytes % 7.0 Eosinophils % 0.8 Basophils % 0.6 INR PTT (Actin FS) Sodium 140 Potassium 3.9 Chloride 103 Carbon Dioxide 29 Anion Gap 8 BUN 11 D Creatinine 0.3 L D Creat Clearance w eGFR > 60 Random Glucose 88 Lactic Acid 1.0 Calcium 9.9 Phosphorus Magnesium Total Bilirubin 0.3 D AST 18 ALT 17 D Alkaline Phosphatase 78 Total Protein 7.1 Albumin 2.9 L Blood Type Antibody Screen 10/18/16 10/18/16 10/18/16 15:54 21:15 21:15 WBC RBC Hgb Hct MCV MCH MCHC RDW Plt Count MPV Neutrophils % Lymphocytes % Monocytes % Eosinophils % Basophils % INR 1.21 H 1.24 H PTT (Actin FS) 36.3 H Sodium Potassium Chloride Carbon Dioxide Anion Gap BUN Creatinine Creat Clearance w eGFR Random Glucose Lactic Acid Calcium Phosphorus Magnesium Total Bilirubin AST ALT Alkaline Phosphatase Total Protein Albumin Blood Type A POSITIVE Antibody Screen Negative 10/19/16 10/19/16 06:10 06:10 WBC 12.0 H RBC 3.60 Hgb 9.9 L Hct 30.2 L MCV 83.9 MCH 27.5 MCHC 32.8 RDW 14.4 Plt Count 278 MPV 7.7 Neutrophils % 67.1 Lymphocytes % 23.2 D Monocytes % 8.0 Eosinophils % 1.3 Basophils % 0.4 INR PTT (Actin FS) Sodium 140 Potassium 4.0 Chloride 104 Carbon Dioxide 27 Anion Gap 9 BUN 9 Creatinine 0.2 L D Creat Clearance w eGFR > 60 Random Glucose 84 Lactic Acid Calcium 9.5 Phosphorus 3.4 Magnesium 1.6 L Total Bilirubin 0.4 D AST 22 D ALT < 6 L D Alkaline Phosphatase 78 Total Protein 6.8 Albumin 2.6 L Blood Type Antibody Screen A&P 1.Pain and discoloration of the left foot Is likely due to PVD as the foot is cold and also has ulcers in the heel but with a h/o of recent fracture embolization remains a possibility Needs to be evaluated Vascular MARIBELL and have arterial doppler vs other studies to determine cause and treat accordingly 2.Parkinson's disease cont present care 3.HTN Controlled, cont preent care
[2016-10-19] MEDS: ACETAMINOPHEN WITH CODEINE 300MG/30MG TABLET PO PRN (17:27)
[2016-10-19] MEDS ORDERED: PT OWN MED DRAWER 7, Y5N ONE (20:15)
--- NOTE | 2016-10-19 23:40 | HOSP ---
Subjective - Review of Symptoms Events since last encounter: Was called to assess a patient who was found in room after unwitnessed fall. Per the nurse, the patient was found on the floor. Pt did not hit her head. She was able to hold the bed sheet and slow her fall. Pt denies hitting her head, LOC, dizziness, pain in her body, numbness, tingling. Pt is AAOx3, at her baseline. Vital signs BP153/72, HR109, Temp 98, RR16, 98% PE: NCAT, PERRLA, EOMI, heart reg rate rhythm, no murmurs, lungs CTA b/l, abdomen soft nontender. No bleeding noted, no abrasions. Head had no lesions. 71 y/o F who fell from standing, but did not hit her head. Fall was slowed by grabbing the bed. Pt without signs of trauma. No bleeding present. No AMS. Pt is at baseline. For these reasons, no head CT ordered. RN to notify PCP. If pt' s mental status changes, will order head CT. Physical Examination Vital Signs: Vital Signs Temperature 97.9 F 10/19/16 19:06 Pulse Rate 97 H 10/19/16 19:06 Respiratory Rate 20 10/19/16 19:06 Blood Pressure 139/60 10/19/16 19:06 O2 Sat by Pulse Oximetry (%) 100 10/19/16 10:00 Labs: CBC, BMP 10/19/16 06:10 10/19/16 06:10 Visit type - Emergency Visit Emergency Visit: No - New Patient This patient is new to me today: Yes Date on this admission: 10/21/16 - Critical Care Critical Care patient: No
[2016-10-20] MEDS ORDERED: ZOLPIDEM TARTRATE 5 MG TABLET PO ONE (03:39)
[2016-10-20] MEDS ORDERED: diphenhydrAMINE HCL 25 MG CAPSULE (FP) PO ONE (03:42)
[2016-10-20] MEDS: CARBIDOPA/LEVODOPA 25/100 TABLET (FP) PO SCH ×3 (06:56→22:28)
[2016-10-20] MEDS ORDERED: PT OWN MED DRAWER 7, Y5N ONE (10:33)
[2016-10-20] MEDS: HEPARIN NA (PORCINE) 5,000 UNITS/ML 1ML VIAL SQ SCH ×2 (10:53→22:28)
[2016-10-20] MEDS: ACETAMINOPHEN WITH CODEINE 300MG/30MG TABLET PO PRN (12:04)
--- NOTE | 2016-10-20 12:07 | CONSULT ---
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 [employer] History of Recent Travel: No Home Medications - Allergies Allergies/Adverse Reactions: Allergies Allergy/AdvReac Type Severity Reaction Status Date / Time aspirin Allergy Verified 10/18/16 14:51 Penicillins Allergy Verified 10/18/16 14:51 - Home Medications Home Medications: Ambulatory Orders Carbidopa/Levodopa [Carbidopa-Levodopa 25-100 Tab] 1 each PO TID 07/24/16 Diltiazem Cd [Cardizem Cd -] 240 mg PO DAILY 07/24/16 Acetaminophen W/ Codeine #3 [Tylenol # 3 -] 1 tab PO Q6H 10/18/16 Multivit-Min/Iron/Folic/Lutein [Centrum Silver Women Tablet] 1 each PO DAILY Naproxen Sodium [Aleve] 220 mg PO QID PRN 10/18/16 Physical Exam Vital Signs: Vital Signs Temperature 99.6 F 10/20/16 08:53 Pulse Rate 104 H 10/20/16 08:53 Respiratory Rate 18 10/20/16 08:53 Blood Pressure 146/75 10/20/16 08:53 O2 Sat by Pulse Oximetry (%) 97 10/20/16 08:57 Labs: CBC, BMP 10/19/16 06:10 10/19/16 06:10 Assessment/Plan Vascular Surgery 71 yo F with h/o HTN with recent left hip fracture, no surgery here with c/o left leg pain, and wounds on left fourth toe and heel. started 3 weeks ago. Seen in wound care clinic on friday <Amie Mak - Last Filed: 10/18/16 16:51> <Elizabeth Huitron - Last Filed: 10/18/16 18:39> <Lamar Novoa - Last Filed: 10/19/16 01:06> - General Chief Complaint: Wound Infection Stated Complaint: Wound Infection Past History - Past Medical History Anemia: No Asthma: No Cancer: No Cardiac Disorders: Yes CVA: No COPD: No CHF: No Dementia: No Diabetes: No GI Disorders: No Disorders: No HTN: Yes Hypercholesterolemia: No Liver Disease: No Seizures: No Thyroid Disease: No - Surgical History Abdominal Surgery: No Appendectomy: No Cardiac Surgery: No Cholecystectomy: No Lung Surgery: No Neurologic Surgery: No Orthopedic Surgery: No - Immunization History Immunization Up to Date: Yes - Psycho/Social/Smoking Cessation Hx Anxiety: No Suicidal Ideation: No Smoking History: Current every day smoker Have you smoked in the past 12 months: Yes Number of Cigarettes Smoked Daily: 5 Information on smoking cessation initiated: No 'Breaking Loose' booklet given: 08/10/16 Hx Alcohol Use: No Drug/Substance Use Hx: No Substance Use Type: None <Amie Mak - Last Filed: 10/18/16 16:51> <Elizabeth Huitron - Last Filed: 10/18/16 18:39> <Lamar Novoa - Last Filed: 10/19/16 01:06> - Past Medical History Allergies/Adverse Reactions: Allergies Allergy/AdvReac Type Severity Reaction Status Date / Time aspirin Allergy Verified 10/18/16 14:51 Penicillins Allergy Verified 10/18/16 14:51 Home Medications: Ambulatory Orders Carbidopa/Levodopa [Carbidopa-Levodopa 25-100 Tab] 1 each PO TID 07/24/16 Diltiazem Cd [Cardizem Cd -] 240 mg PO DAILY 07/24/16 Acetaminophen W/ Codeine #3 [Tylenol # 3 -] 1 tab PO Q6H 10/18/16 Multivit-Min/Iron/Folic/Lutein [Centrum Silver Women Tablet] 1 each PO DAILY Naproxen Sodium [Aleve] 220 mg PO QID PRN 10/18/16 PE Head - NC/AT Lung - CTA Heart - RRR abd - soft,nt,nd ext - Left foot cool to touch with ulcers to toes. Motor and sensory in the foot are intact. Pt had fall last night. A/P CTA done. awaiting read from radiology. Will then plan angiogram. Shaquille Wiggins DO
[2016-10-20] MEDS: morphine CARPU-JECT 4 MG/1 ML DISP.SYRIN IVPUSH PRN (16:41)
--- NOTE | 2016-10-20 18:09 | PN ---
Progress Note (short form) - Note Progress Note: The pain is about the same No fever Had a fall last night slid from the bed and landed on her buttocks No head injury O/E Vital Signs Period Temp Pulse Resp BP Sys/Watkins Pulse Ox Last 24 Hr 97.9 F-99.6 F 62-114 18-20 130-146/53-95 97-100 Heart regular 'Lungs clear Ext the left foot is slightly cold but not very Dorsalis pedis pulse is feebly present in the left The toes are only gangreneous in hte dorsal aspect and not the ventral aspect and the discoloration coincided with her hip fracture Current Medications Acetaminophen (Tylenol -) 650 mg PO Q4H PRN PRN Reason: FEVER OR PAIN Last Admin: 10/19/16 06:58 Dose: 650 mg Acetaminophen/Codeine Phosphate (Tylenol # 3 -) 1 tab PO Q4H PRN Last Admin: 10/20/16 12:04 Dose: 1 tab Carbidopa/Levodopa (Sinemet 25/100 -) 1 each PO TID [facility] Last Admin: 10/20/16 14:21 Dose: 1 each Diltiazem HCl (Cardizem Cd -) 240 mg PO DAILY [facility] Last Admin: 10/20/16 10:53 Dose: 240 mg Heparin Sodium (Porcine) (Heparin -) 5,000 unit SQ BID [facility] Last Admin: 10/20/16 10:53 Dose: 5,000 unit Sodium Chloride (Normal Saline -) 1,000 mls @ 83 mls/hr IV ASDIR [facility] Last Admin: 10/19/16 20:46 Dose: Not Given Morphine Sulfate (Morphine Injection -) 2 mg IVPUSH Q4H PRN PRN Reason: PAIN LEVEL 6-10 Last Admin: 10/20/16 16:41 Dose: 2 mg A&P 1.Pain and discoloration of the left foot Is likely due to PVD as the foot is cold and also has ulcers in the heel but with a h/o of recent fracture embolization remains a possibility Needs to be evaluated Vascular MARIBELL and have arterial doppler vs other studies to determine cause and treat accordingly. Vascular noted and will await results of Arterial doppler 2.Parkinson's disease cont present care 3.HTN Controlled, cont preent care
[2016-10-20] MEDS: SODIUM CHLORIDE 1,000 ML IV SCH (22:28)
[2016-10-21] MEDS: SODIUM CHLORIDE 1,000 ML IV SCH (01:09)
[2016-10-21] MEDS: ACETAMINOPHEN WITH CODEINE 300MG/30MG TABLET PO PRN (01:09)
[2016-10-21] MEDS: CARBIDOPA/LEVODOPA 25/100 TABLET (FP) PO SCH ×3 (07:01→21:36)
--- NOTE | 2016-10-21 09:51 | EKG ---
Test Reason : Blood Pressure : / mmHG Vent. Rate : 111 BPM Atrial Rate : 111 BPM P-R Int : 134 ms QRS Dur : 072 ms QT Int : 320 ms P-R-T Axes : 089 053 066 degrees QTc Int : 435 ms SINUS TACHYCARDIA OTHERWISE NORMAL ECG WHEN COMPARED WITH ECG OF 26-SEP-2016 09:49, NO SIGNIFICANT CHANGE WAS FOUND Confirmed by ADELIA JAIN MD ([id number]) on 10/21/2016 9:51:16 AM Referred By: Confirmed By:ADELIA JAIN MD
[2016-10-21] MEDS: HEPARIN NA (PORCINE) 5,000 UNITS/ML 1ML VIAL SQ SCH (09:52)
[2016-10-21] MEDS: dilTIAZem HCL 50 MG/10 ML - 10 ML VIAL IVPUSH ONE ×3 (10:05→10:57)
--- NOTE | 2016-10-21 10:24 | RAPID ---
Physical Examination Vital Signs: Vital Signs Temperature 98.6 F 10/21/16 09:45 Pulse Rate 177 H 10/21/16 10:21 Respiratory Rate 20 10/21/16 09:45 Blood Pressure 133/70 10/21/16 09:45 O2 Sat by Pulse Oximetry (%) 100 10/21/16 10:21 Constitutional: Yes: Anxious, Cachectic Eyes: Yes: Conjunctiva Clear, EOM Intact, PERRL HENT: Yes: Atraumatic, Normocephalic. No: Nasal Congestion, Pharyngeal Erythema , Thrush, Tonsillar Exudate Neck: Yes: Trachea Midline, Other (JVD on right). No: Lymphadenopathy, Thyromegaly Cardiovascular: Yes: Tachycardia, Pulse Irregular, S1, S2. No: Murmur Respiratory: Yes: Regular, CTA Bilaterally, On Nasal O2 (3L) Gastrointestinal: Yes: Normal Bowel Sounds, Soft. No: Distention, Tenderness Extremities: Yes: Other (left foot with dressing on heel and lateral toes. visualized left great toe with pallor, toenail is away from skin. tender to palpation throughout left foot, upto knee.). No: Calf Tenderness, Erythema Edema: No Peripheral Pulses: Left Radial: 2+, Right Radial: 2+, Left Doralis Pedis: 1+ ( weak), Right Dorsalis Pedis: 1+ (weak), Left Femoral: 2+, Right Femoral: 2+ Wound/Incision: Yes: Dressing Dry and Intact (on left heel and lateral part of foot) Neurological: Yes: Alert. No: Facial Droop ...Motor Strength: LUE (handgrip 5/5.), LLE (declined motor strength due to pain.), RUE (hand information services consultant 5/5), RLE (5/5 hip extension and knee extension) Psychiatric: Yes: Alert, Oriented (to person and birthday) Labs: CBC, BMP 10/19/16 06:10 10/19/16 06:10 Rapid Response - Rapid Response Assessment: RR initiated for tachycardia in the 180's. upon arrival patient was sitting on side of bed, breathing room air, alert and responsive to questions and directions. speech was clear. Nasal cannula 3L was placed on patient. Patient was on 83cc/hr of NS, fluids were held. EKG showed Afib with rapid ventricular rate. she received po Cardizem 240mg and heparin sq 5000 units. Repeat BP 140/90, HR 170's in afib. Cardizem 10mg IVPUSH administered. Repeat BP 130/80 HR 122's Approximately 5 mins later: Repeat BP 142/83 HR 130's-140's Caridizem 10mg IVPUSH administered Primary care team Dr. Serra in attendance. Repeat BP 127/75 HR 110 Patient denied chest pain or shortness of breath. She was concerned about the dressing on her left foot and her foot pain. Asking to go home. She was unable to lay still due to the pain in her left foot. Recommendations/Interventions: Recommend Cardiology consult to discuss anticoagulation for A-fib, cardioversion , titration of cardizem or additional rate controlling agents if continued Afib with RVR. Patient may require continued cardizem drip if A-fib continues. Telemetry contacted, patient will be transferred to telemetry floor for further monitoring. Primary Physician Notified: Dinesh Serra Time PMD Notified: 10:00 Critical Care Total Critical Care Time (in minutes): 35 Critical Care Statement: The care of this patient involved high complexity decision making to prevent further life threatening deterioration of the patient 's condition and/or to evalute & treat vital organ system(s) failure or risk of failure.
--- NOTE | 2016-10-21 10:26 | PN ---
Progress Note, Physician Chief Complaint: Ms Wilson complains of her foot not being cleaned. She says she is supposed to go home today. Denies cp, sob, n/v but is anxious. Seen while HR was in 130s. - Current Medication List Current Medications: Active Medications Acetaminophen (Tylenol -) 650 mg PO Q4H PRN PRN Reason: FEVER OR PAIN Last Admin: 10/19/16 06:58 Dose: 650 mg Acetaminophen/Codeine Phosphate (Tylenol # 3 -) 1 tab PO Q4H PRN Last Admin: 10/21/16 01:09 Dose: 1 tab Carbidopa/Levodopa (Sinemet 25/100 -) 1 each PO TID [facility] Last Admin: 10/21/16 07:01 Dose: 1 each Diltiazem HCl (Cardizem Cd -) 240 mg PO DAILY [facility] Last Admin: 10/21/16 09:52 Dose: 240 mg Heparin Sodium (Porcine) (Heparin -) 5,000 unit SQ BID [facility] Last Admin: 10/21/16 09:52 Dose: 5,000 unit Sodium Chloride (Normal Saline -) 1,000 mls @ 83 mls/hr IV ASDIR [facility] Last Admin: 10/21/16 01:09 Dose: 83 mls/hr Morphine Sulfate (Morphine Injection -) 2 mg IVPUSH Q4H PRN PRN Reason: PAIN LEVEL 6-10 Last Admin: 10/20/16 16:41 Dose: 2 mg - Objective Vital Signs: Vital Signs Temperature 98.6 F 10/21/16 09:45 Pulse Rate 177 H 10/21/16 10:21 Respiratory Rate 20 10/21/16 09:45 Blood Pressure 133/70 10/21/16 09:45 O2 Sat by Pulse Oximetry (%) 100 10/21/16 10:21 Constitutional: Yes: Mild Distress, Thin Cardiovascular: Yes: Tachycardia, Pulse Irregular. No: Gallop, Murmur, Rub Respiratory: Yes: Regular, CTA Bilaterally. No: Rales, Rhonchi, Wheezes Gastrointestinal: Yes: Normal Bowel Sounds, Soft. No: Distention, Tenderness Extremities: Yes: Other (gangrene) Edema: No Labs: CBC, BMP 10/19/16 06:10 10/19/16 06:10 INR, PTT INR 1.24 (0.82-1.09) H 10/18/16 21:15 Problem List - Problems (1) Atrial fibrillation with rapid ventricular response Assessment/Plan: -occurred on the floor -received IV diltiazem, transferred to telemetry -seen by Dr Castillo and case discussed -diltiazem and metoprolol -IV heparin while in bed, once begins to walk will stop -patient is poor anticoagulation candidate secondary to multiple falls -rate control Code(s): I48.91 - UNSPECIFIED ATRIAL FIBRILLATION (2) Gangrene Assessment/Plan: -being followed by vascular surgery -now with elevated WBC, but this could be secondary to stress from afib -monitor WBC -currently not on antibiotics Code(s): I96 - GANGRENE, NOT ELSEWHERE CLASSIFIED (3) Parkinson disease Assessment/Plan: -continue sinemet Code(s): G20 - PARKINSON'S DISEASE (4) Fall Assessment/Plan: -fall precautions -PT consult Code(s): W19.XXXA - UNSPECIFIED FALL, INITIAL ENCOUNTER Qualifiers: Encounter type: initial encounter Qualified Code(s): W19.XXXA - Unspecified fall, initial encounter (5) HTN (hypertension) Assessment/Plan: -continue toprol xl and diltiazem Code(s): I10 - ESSENTIAL (PRIMARY) HYPERTENSION
[2016-10-21] MEDS ORDERED: dilTIAZem HCL 50 MG/10 ML - 10 ML VIAL IVPUSH ONE (10:38)
[2016-10-21 10:43] LABS: BASOPHIL 0.5 % (0-2.0); EOSINOPHIL 0.1 % (0-4.5); MCH 27.2 pg (25.7-33.7); MCHC 32.8 g/dl (32.0-36.0); NEUTROPHILS 77.8 % (42.8-82.8); PLATELET COUNT 280 K/MM3 (134-434); RDW 14.1 % (11.6-15.6); WHITE BLOOD COUNT 15.2 K/mm3 (4.0-10.0)
[2016-10-21 11:24] LABS: ANION GAP 9 (8-16); CALCIUM 9.6 mg/dL (8.5-10.1); CO2 27 mmol/L (21-32); CREATININE 0.3 mg/dL (0.55-1.02); GLUCOSE,RANDOM 122 mg/dL (74-106); MAGNESIUM 1.3 mg/dL (1.8-2.4); PHOSPHOROUS 2.5 mg/dL (2.5-4.9)
--- NOTE | 2016-10-21 11:49 | CON.CARD ---
Consult Consult Specialty:: cardio Referred by:: jade Reason for Consultation:: tachy, afib - History of Present Illness Chief Complaint: fast HR History of Present Illness: 71 yo female developed rapid HR to 180s today on , ekg intepreted as rapid AF by rapid response team. she reports palpitations at that time, but no cp, sob, dizzy on diltiazem 240 for HTN at home--given at that time. also diltiazem IV 10mg x 2 pushes--HR down to 110s eventually. transferred to telemetry floor. per dr hansen, ecg showed rapid AF, no ischemic changes (tracing not in chart). pt admitted few days ago with non-healing wounds on feet, seen by dr martínez ( vascular), had CT angiogram, results pending had L greater trochanteric fracture 08/07, tx'd nonoperatively by ortho pt states she's fallen "milions of times" due to her muscle condition (dystonia) . sometimes mult times a day. on average several times a week. 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 [employer] History of Recent Travel: No Home Medications - Allergies Allergies/Adverse Reactions: Allergies Allergy/AdvReac Type Severity Reaction Status Date / Time aspirin Allergy Verified 10/18/16 14:51 Penicillins Allergy Verified 10/18/16 14:51 - Home Medications Home Medications: Ambulatory Orders Carbidopa/Levodopa [Carbidopa-Levodopa 25-100 Tab] 1 each PO TID 07/24/16 Diltiazem Cd [Cardizem Cd -] 240 mg PO DAILY 07/24/16 Acetaminophen W/ Codeine #3 [Tylenol # 3 -] 1 tab PO Q6H 10/18/16 Multivit-Min/Iron/Folic/Lutein [Centrum Silver Women Tablet] 1 each PO DAILY Naproxen Sodium [Aleve] 220 mg PO QID PRN 10/18/16 Family Disease History - Family Disease History Family History: Denies (no cmp) Review of Systems - Review of Systems Constitutional: denies: Chills, Fever Eyes: denies: Eye Pain HENT: denies: Nasal Congestion Neck: denies: Stiffness Cardiovascular: denies: Edema Respiratory: denies: Orthopnea, PND Gastrointestinal: denies: Diarrhea, Rectal Bleeding Genitourinary: denies: Burning, Hematuria Musculoskeletal: denies: Muscle Pain Integumentary: denies: Rash Neurological: denies: Numbness, Seizure, Syncope Endocrine: denies: Excessive Sweating Hematology/Lymphatic: denies: Excessive Bleeding Vital Signs: Vital Signs Temperature 98.6 F 10/21/16 09:45 Pulse Rate 110 H 10/21/16 10:34 Respiratory Rate 20 10/21/16 10:20 Blood Pressure 127/75 10/21/16 10:34 O2 Sat by Pulse Oximetry (%) 100 10/21/16 10:21 Constitutional: Yes: Well Nourished, No Distress Eyes: No: Sclera Icterus HENT: No: Nasal Congestion Neck: No: Decreased ROM Respiratory: Yes: CTA Bilaterally. No: Accessory Muscle Use, Rales, Wheezes Gastrointestinal: Yes: Normal Bowel Sounds. No: Distention, Hepatomegaly, Palpable Mass, Tenderness Cardiovascular: Yes: Regular Rate and Rhythm JVD: No Carotid Bruit: No PMI: Non-Displaced Heart Sounds: Yes: S1, S2. No: Gallop Murmur: No: Systolic Murmur, Diastolic Murmur Musculoskeletal: Yes: Other (No kyphosis) Extremities: No: Cold, Cyanosis Edema: No Peripheral Pulses: 2+ Left Carotid, 2+ Right Carotid, 2+ Left Doralis Pedis, 2+ Right Dorsalis Pedis Integumentary: No: Jaundice Neurological: Yes: Alert, Oriented (x3) Psychiatric: No: Agitated - Other Data Labs, Other Data: CBC, BMP 10/21/16 10:14 10/21/16 11:00 INR, PTT INR 1.24 (0.82-1.09) H 10/18/16 21:15 Laboratory Tests 10/19/16 10/21/16 10/21/16 06:10 10:14 11:00 WBC 15.2 H Hgb 9.9 L Plt Count 280 Sodium 138 Potassium 3.4 L Carbon Dioxide 27 BUN 5 L D Creatinine 0.3 L D Magnesium 1.3 L AST 22 D ALT < 6 L D tele: AF ranging 110s-180 Assessment/Plan CXR 10/18: clear lungs and pleura ECG 10/21, 10am: afib 157 bpm; normal axis/intervals; no path q's; mild NSST abn Afib: -first episode, occurred on floor while here with foot wound -rapid HRs, responded to diltiazem PO and IVPs (on diltiazem CD 240 at home for BP) -ecg nonischemic, trend serial enzymes -check echo in AM, once HRs better controlled (to better assess LV fxn) -has been getting SQ hep (5K units BID) here for DVT ppx, O2 sat 100% on RA-- doubt PE -CHADS VASC = 3, merits nursing home AC for stroke prevention. -however pt reports excessive falls at home including head injury more than once. hence her risk of falls with head injury is statistically signif greater than 3%/year risk of cardioembolic stroke. -will start UFH while here, as she is not ambulating including not going to use bathroom herself--will stop AC once she is ambulating (unless needs cardioversion), d/w'd dr hansen as well who is aware of plan -await monitoring of HR control with AVN blockers--hope to defer cardioversion as she would require 4 weeks of uninterrupted AC afterward (though suspect she would tolerate that without head trauma in that time, if necessary) -cont diltiazem; add metoprolol HTN: -well controlled -cont home po diltiazem 240mg (prefer avoid 300mg dose given incr incidence constipation/leg swelling with this) -add metopr succinate 50mg qd -monitor telemetry
[2016-10-21] MEDS: METOPROLOL SUCCINATE 50 MG TAB.SR.24H (FP) PO SCH (12:12)
--- NOTE | 2016-10-21 12:14 | EKG ---
Test Reason : Blood Pressure : / mmHG Vent. Rate : 157 BPM Atrial Rate : 178 BPM P-R Int : 000 ms QRS Dur : 066 ms QT Int : 264 ms P-R-T Axes : 000 042 043 degrees QTc Int : 426 ms ATRIAL FIBRILLATION WITH RAPID VENTRICULAR RESPONSE NONSPECIFIC ST ABNORMALITY ABNORMAL ECG WHEN COMPARED WITH ECG OF 18-OCT-2016 16:27, ATRIAL FIBRILLATION HAS REPLACED SINUS RHYTHM ST NOW DEPRESSED IN ANTERIOR LEADS Confirmed by SANDRO HERNANDEZ, TRACEE ([id number]) on 10/21/2016 12:14:06 PM Referred By: SOPHIE MCNEILL Confirmed By:TRACEE JO MD
[2016-10-21] MEDS ORDERED: HEPARIN NA (PORCINE) 5,000 UNITS/ML 1ML VIAL IVPUSH PRN ×2 (12:23)
[2016-10-21] MEDS: HEPARIN - 25,000 UNIT in SODIUM CHLORIDE 495 ML IV SCH ×2 (12:30→21:36)
[2016-10-21] MEDS ORDERED: HEPARIN INFUSION - 500 ML IVPB ONE (12:43)
[2016-10-21 13:25] LABS: CPK 98 IU/L (26-192); TROPONIN I < 0.02 ng/ml (0.00-0.05)
[2016-10-21] MEDS ORDERED: POTASSIUM CHLORIDE TABS 20 MEQ TABLET.ER (FP) PO ONE (15:40)
--- NOTE | 2016-10-21 18:56 | PN ---
Progress Note (short form) - Note Progress Note: Vascular Surgery CTA done on 10/18 still not read. Asked radiology to read CTA on friday. Still not done. Will await official read. Cardiology on the case treating A fib. Will follow Shaquille Wiggins DO
[2016-10-21 22:43] LABS: CPK 64 IU/L (26-192); TROPONIN I < 0.02 ng/ml (0.00-0.05)
[2016-10-22] MEDS ORDERED: ACETAMINOPHEN 325 MG TABLET (FP) PO PRN (04:17)
[2016-10-22] MEDS: ACETAMINOPHEN WITH CODEINE 300MG/30MG TABLET PO PRN ×3 (05:09→22:00)
[2016-10-22] MEDS: CARBIDOPA/LEVODOPA 25/100 TABLET (FP) PO SCH ×3 (05:10→22:00)
[2016-10-22 07:59] LABS: BASOPHIL 0.5 % (0-2.0); EOSINOPHIL 0.3 % (0-4.5); MCH 27.4 pg (25.7-33.7); MCHC 32.5 g/dl (32.0-36.0); MEAN CELL VOLUME 84.4 fl (80-96); MEAN PLT VOLUME 7.8 fl (7.5-11.1); NEUTROPHILS 71.1 % (42.8-82.8); PLATELET COUNT 305 K/MM3 (134-434); RDW 13.8 % (11.6-15.6); WHITE BLOOD COUNT 14.8 K/mm3 (4.0-10.0)
[2016-10-22 09:10] LABS: ANION GAP 10 (8-16); CALCIUM 9.7 mg/dL (8.5-10.1); CO2 29 mmol/L (21-32); CREATININE 0.3 mg/dL (0.55-1.02); GLUCOSE,RANDOM 104 mg/dL (74-106); MAGNESIUM 1.6 mg/dL (1.8-2.4); PHOSPHOROUS 3.3 mg/dL (2.5-4.9)
[2016-10-22] MEDS ORDERED: PT OWN MED DRAWER 7, Y5N ONE (10:06)
[2016-10-22] MEDS ORDERED: MAGNESIUM SULF 50% (8.12 MEQ/2 ML-1 GM VIAL) IVPB ONE (10:10)
--- NOTE | 2016-10-22 10:19 | PN ---
Progress Note (short form) - Note Progress Note: Chief Complaint: afib History of Present Illness: S: added metopr succinate 50mg qd yesterday for RVR. has subsequently converted and is now in SR. patient endorses palps up until this morning, but also was confused about the time of day (? reliability of timing). no cp, sob, dizziness. Current Medications Acetaminophen (Tylenol -) 650 mg PO Q4H PRN PRN Reason: FEVER OR PAIN Acetaminophen/Codeine Phosphate (Tylenol # 3 -) 1 tab PO Q4H PRN Last Admin: 10/22/16 05:09 Dose: 1 tab Carbidopa/Levodopa (Sinemet 25/100 -) 1 each PO TID [facility] Last Admin: 10/22/16 05:10 Dose: 1 each Diltiazem HCl (Cardizem Injection -) 10 mg IVPUSH Q1H PRN PRN Reason: TACHYCARDIA Diltiazem HCl (Cardizem Cd -) 240 mg PO DAILY [facility] Heparin Sodium (Porcine) (Heparin -) 1,000 unit IVPUSH PRN PRN PRN Reason: Heparin Heparin Sodium (Porcine) (Heparin -) 5,000 unit IVPUSH PRN PRN PRN Reason: Heparin Heparin Sodium (Porcine) 25, (000 unit/ Sodium Chloride) 500 mls @ 16 mls/hr IV TITR MELANY; 800 UNIT/HR PRN Reason: Protocol Last Admin: 10/21/16 21:36 Dose: 18 mls/hr Magnesium Sulfate (Magnesium Sulfate) 2 gm IVPB ONCE ONE Stop: 10/22/16 10:11 Metoprolol Succinate (Toprol Xl -) 50 mg PO DAILY [facility] Last Admin: 10/21/16 12:12 Dose: 50 mg Morphine Sulfate (Morphine Injection -) 2 mg IVPUSH Q4H PRN PRN Reason: PAIN LEVEL 6-10 Potassium Chloride (K-Dur -) 40 meq PO ONCE ONE Stop: 10/22/16 10:11 Vital Signs - 24 hr 10/21/16 10/21/16 10/21/16 10:20 10:21 10:34 Temperature Pulse Rate 110 H 177 H 110 H Respiratory 20 Rate Blood Pressure 127/75 127/75 O2 Sat by Pulse 100 Oximetry (%) 10/21/16 10/21/16 10/21/16 12:00 12:08 17:00 Temperature 99 F 98.8 F Pulse Rate 144 H 62 Respiratory 22 22 20 Rate Blood Pressure 152/70 116/51 O2 Sat by Pulse 95 Oximetry (%) 10/21/16 10/22/16 10/22/16 21:00 01:00 05:00 Temperature 99 F 98 F 98 F Pulse Rate 78 75 84 Respiratory 20 20 20 Rate Blood Pressure 130/77 118/57 144/60 O2 Sat by Pulse 95 Oximetry (%) 10/22/16 09:00 Temperature 98.2 F Pulse Rate 91 H Respiratory 18 Rate Blood Pressure 146/74 O2 Sat by Pulse Oximetry (%) Intake & Output 10/20/16 10/21/16 10/22/16 10/23/16 07:59 07:59 07:59 07:59 Intake Total 1896 2716 200 Balance 1896 2716 200 Weight 92 lb 9.6 oz 93 lb 7 oz Constitutional: Yes: cachectic, No Distress Eyes: No: Sclera Icterus HENT: No: Nasal Congestion Neck: No: Decreased ROM Respiratory: Yes: CTA Bilaterally. No: Accessory Muscle Use, Rales, Wheezes Gastrointestinal: Yes: Normal Bowel Sounds. No: Distention, Hepatomegaly, Palpable Mass, Tenderness Cardiovascular: Yes: Regular Rate and Rhythm JVD: No Carotid Bruit: No PMI: Non-Displaced Heart Sounds: Yes: S1, S2. No: Gallop Murmur: No: Systolic Murmur, Diastolic Murmur Musculoskeletal: Yes: Other (No kyphosis) Extremities: No: Cold, Cyanosis Edema: No Peripheral Pulses: 2+ Left Carotid, 2+ Right Carotid, 2+ Left Doralis Pedis, 2+ Right Dorsalis Pedis Integumentary: No: Jaundice Neurological: Yes: Alert, Oriented (x3) Psychiatric: No: Agitated - Other Data Labs, Other Data: CBC, BMP 10/22/16 05:43 10/22/16 05:43 tele: [facility] frequent pac's Assessment/Plan CXR 10/18: clear lungs and pleura ECG 10/21, 10am: afib 157 bpm; normal axis/intervals; no path q's; mild NSST abn 71 yo smoker with htn, dystonia c/b frequent falls (recent medically managed trochanteric fx in July) who p/w possible ischemic foot/non-healing wounds, hospital course complicated by afib with RVR. Afib: -first episode, occurred on floor while here with foot wound -rapid HRs 10/21, responded to diltiazem PO and IVPs (on diltiazem CD 240 at home for BP) --> now in SR as of 10/22. -ecg nonischemic, trend serial enzymes -check echo now that HRs better controlled (to better assess LV fxn) --> pending -has been getting SQ hep (5K units BID) here for DVT ppx, O2 sat 100% on RA-- doubt PE --> started on heparin drip -CHADS VASC = 3, merits correction AC for stroke prevention. however pt reports excessive falls at home including head injury more than once and trochanteric fx last month. hence her risk of falls with head injury is statistically signif greater than 3%/year risk of cardioembolic stroke. -will start UFH while here, as she is not ambulating including not going to use bathroom herself--will stop AC once she is ambulating (unless needs cardioversion), d/w'd dr hansen as well who is aware of plan -await monitoring of HR control with AVN blockers--hope to defer cardioversion as she would require 4 weeks of uninterrupted AC afterward (though suspect she would tolerate that without head trauma in that time, if necessary) -cont diltiazem; add metoprolol - 10/22: lyte repletion, RVR occurred when magnesium was 1.3. now in SR. If remains in SR tomorrow can consider stopping AC as episode of afib was brief and patient not eligible for [facility] ac as above. HTN: -overall reasonable control -cont home po diltiazem 240mg (prefer avoid 300mg dose given incr incidence constipation/leg swelling with this) -added metopr succinate 50mg qd 10/21. monitor pre-op clearance - patient being followed by vascular. Possible need for angio to evaluate pad. - patient with rcri of 0 but with poor funcitonal status and pad. estimated risk likely low-intermediate. afib with rvr now resolved and should not prevent moving forward with surgery. Ok to hold AC for procedure and will consider stopping altogether as mentioned above
[2016-10-22] MEDS ORDERED: POTASSIUM CHLORIDE TABS 20 MEQ TABLET.ER (FP) PO ONE (10:30)
[2016-10-22] MEDS: METOPROLOL SUCCINATE 50 MG TAB.SR.24H (FP) PO SCH (10:45)
--- NOTE | 2016-10-22 12:01 | PN ---
Progress Note (short form) - Note Progress Note: [facility] CTA reviewed with radiology. 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 Will need angiogram, angioplasty , stent placement to open inflow. Please clear from a cardiology standpoint to proceed with angiogram. Shaquille Wiggins DO
--- NOTE | 2016-10-22 13:13 | PN ---
Progress Note, Physician Chief Complaint: Ms Wilson is without complaint, but slightly confused. Saying she saw a doctor for her teeth. Denies cp, sob, n/v, foot pain. - Current Medication List Current Medications: Active Medications Acetaminophen (Tylenol -) 650 mg PO Q4H PRN PRN Reason: FEVER OR PAIN Acetaminophen/Codeine Phosphate (Tylenol # 3 -) 1 tab PO Q4H PRN Last Admin: 10/22/16 11:17 Dose: 1 tab Carbidopa/Levodopa (Sinemet 25/100 -) 1 each PO TID [facility] Last Admin: 10/22/16 05:10 Dose: 1 each Diltiazem HCl (Cardizem Injection -) 10 mg IVPUSH Q1H PRN PRN Reason: TACHYCARDIA Diltiazem HCl (Cardizem Cd -) 240 mg PO DAILY [facility] Last Admin: 10/22/16 10:46 Dose: 240 mg Heparin Sodium (Porcine) (Heparin -) 1,000 unit IVPUSH PRN PRN PRN Reason: Heparin Heparin Sodium (Porcine) (Heparin -) 5,000 unit IVPUSH PRN PRN PRN Reason: Heparin Heparin Sodium (Porcine) 25, (000 unit/ Sodium Chloride) 500 mls @ 16 mls/hr IV TITR MELANY; 800 UNIT/HR PRN Reason: Protocol Last Admin: 10/21/16 21:36 Dose: 18 mls/hr Metoprolol Succinate (Toprol Xl -) 50 mg PO DAILY [facility] Last Admin: 10/22/16 10:45 Dose: 50 mg Morphine Sulfate (Morphine Injection -) 2 mg IVPUSH Q4H PRN PRN Reason: PAIN LEVEL 6-10 - Objective Vital Signs: Vital Signs Temperature 98.2 F 10/22/16 09:00 Pulse Rate 91 H 10/22/16 09:00 Respiratory Rate 18 10/22/16 09:00 Blood Pressure 146/74 10/22/16 09:00 O2 Sat by Pulse Oximetry (%) 95 10/22/16 09:00 Constitutional: Yes: No Distress, Calm, Thin Cardiovascular: Yes: Pulse Irregular. No: Tachycardia, Gallop, Murmur, Rub Respiratory: Yes: Regular, CTA Bilaterally. No: Rales, Rhonchi, Wheezes Gastrointestinal: Yes: Normal Bowel Sounds, Soft. No: Distention, Tenderness Extremities: Yes: Other (gangrene) Edema: No Labs: CBC, BMP 10/22/16 05:43 10/22/16 05:43 INR, PTT INR 1.24 (0.82-1.09) H 10/18/16 21:15 Problem List - Problems (1) Atrial fibrillation with rapid ventricular response Code(s): I48.91 - UNSPECIFIED ATRIAL FIBRILLATION (2) Gangrene Code(s): I96 - GANGRENE, NOT ELSEWHERE CLASSIFIED (3) Parkinson disease Code(s): G20 - PARKINSON'S DISEASE (4) Fall Code(s): W19.XXXA - UNSPECIFIED FALL, INITIAL ENCOUNTER Qualifiers: Encounter type: initial encounter Qualified Code(s): W19.XXXA - Unspecified fall, initial encounter (5) HTN (hypertension) Code(s): I10 - ESSENTIAL (PRIMARY) HYPERTENSION Assessment/Plan (1) Atrial fibrillation with rapid ventricular response Assessment/Plan: -rate controlled -appreciate cardiology assistance -continue diltiazem -continue heparin gtt while patient is not ambulating in the hospital -not a candidate for outpatient anticoagulation secondary to multiple falls Code(s): I48.91 - UNSPECIFIED ATRIAL FIBRILLATION (2) Gangrene Assessment/Plan: -leukocytosis increasing -consult ID -vascular surgery following, planning for stent Code(s): I96 - GANGRENE, NOT ELSEWHERE CLASSIFIED (3) Parkinson disease Assessment/Plan: -continue sinemet Code(s): G20 - PARKINSON'S DISEASE (4) Fall Assessment/Plan: -fall precautions -PT consult Code(s): W19.XXXA - UNSPECIFIED FALL, INITIAL ENCOUNTER Qualifiers: Encounter type: initial encounter Qualified Code(s): W19.XXXA - Unspecified fall, initial encounter (5) HTN (hypertension) Assessment/Plan: -continue diltiazem -stable Code(s): I10 - ESSENTIAL (PRIMARY) HYPERTENSION
[2016-10-22] MEDS: morphine CARPU-JECT 4 MG/1 ML DISP.SYRIN IVPUSH PRN (14:06)
--- NOTE | 2016-10-22 14:38 | CONSULT ---
Consult Consult Specialty:: infectious diseases Referred by:: Reason for Consultation:: cellulitis of the left foot with infectd fingers - History of Present Illness Chief Complaint: pain in the leg History of Present Illness: 71 yo F with PMH of PAD, HTN and parkinsons L hip fracture admitted due to L foot pain, and wounds on left 3rd and fourth toe. Symptoms started 3 w ago after she dropped a shelf on her foot. There were mild abrasions that never seemed to heal and her 4th toe gradually turned black. She complains of 7/10 foot pain, localized over all of her toes as well as pain in L calf. She denies alleviating or aggravating factors. She denies f/c or malaise. 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 [employer] History of Recent Travel: No Home Medications - Allergies Allergies/Adverse Reactions: Allergies Allergy/AdvReac Type Severity Reaction Status Date / Time aspirin Allergy Verified 10/18/16 14:51 Penicillins Allergy Verified 10/18/16 14:51 - Home Medications Home Medications: Ambulatory Orders Carbidopa/Levodopa [Carbidopa-Levodopa 25-100 Tab] 1 each PO TID 07/24/16 Diltiazem Cd [Cardizem Cd -] 240 mg PO DAILY 07/24/16 Acetaminophen W/ Codeine #3 [Tylenol # 3 -] 1 tab PO Q6H 10/18/16 Multivit-Min/Iron/Folic/Lutein [Centrum Silver Women Tablet] 1 each PO DAILY Naproxen Sodium [Aleve] 220 mg PO QID PRN 10/18/16 Review of Systems - Review of Systems Constitutional: reports: No Symptoms Eyes: reports: No Symptoms HENT: reports: No Symptoms Neck: reports: No Symptoms Cardiovascular: reports: No Symptoms Respiratory: reports: No Symptoms Gastrointestinal: reports: No Symptoms Genitourinary: reports: No Symptoms Musculoskeletal: reports: Joint Pain, Other (discolration of the fingers) Integumentary: reports: Change in Color, Erythema, Wound, Other Neurological: reports: No Symptoms Endocrine: reports: No Symptoms Hematology/Lymphatic: reports: No Symptoms Psychiatric: reports: No Symptoms Physical Exam Vital Signs: Vital Signs Temperature 98.2 F 10/22/16 09:00 Pulse Rate 91 H 10/22/16 09:00 Respiratory Rate 18 10/22/16 09:00 Blood Pressure 146/74 10/22/16 09:00 O2 Sat by Pulse Oximetry (%) 95 10/22/16 09:00 Constitutional: Yes: Poor Hygeine, Other (failure to thrive) Eyes: Yes: Conjunctiva Clear, EOM Intact Cardiovascular: Yes: Regular Rate and Rhythm Respiratory: Yes: Regular, CTA Bilaterally Gastrointestinal: Yes: Normal Bowel Sounds, Soft Musculoskeletal: Yes: Other Extremities: Yes: Other Integumentary: Yes: Erythema, Other (gangrene of the 3rd and the 4th toe) Wound/Incision: Yes: Other Neurological: Yes: Alert, Other Psychiatric: Yes: Alert, Other Labs: CBC, BMP 10/22/16 05:43 10/22/16 05:43 Imaging - Results Chest X-ray: Report Reviewed, Image Reviewed Ultrasound: Report Reviewed, Image Reviewed Other: Report Reviewed, Image Reviewed Assessment/Plan roblem List - Problems (1) Atrial fibrillation with rapid ventricular response Code(s): I48.91 - UNSPECIFIED ATRIAL FIBRILLATION (2) Gangrene Code(s): I96 - GANGRENE, NOT ELSEWHERE CLASSIFIED (3) Parkinson disease Code(s): G20 - PARKINSON'S DISEASE (4) Fall Code(s): W19.XXXA - UNSPECIFIED FALL, INITIAL ENCOUNTER Qualifiers: Encounter type: initial encounter Qualified Code(s): W19.XXXA - Unspecified fall, initial encounter (5) HTN (hypertension) Code(s): I10 - ESSENTIAL (PRIMARY) HYPERTENSION patients wound examined and seen.there is no doubt patient has gangrene patient needs amputation after looking at the blood supply of the foot also will see what is wbc tomorrow an decide further plan plan will watch wbc might have to start abx patient needs amputation vascular on case
[2016-10-22] MEDS: HEPARIN - 25,000 UNIT in SODIUM CHLORIDE 495 ML IV SCH (15:40)
[2016-10-22] MEDS ORDERED: HEPARIN INFUSION - 500 ML IVPB ONE (20:40)
[2016-10-23] MEDS: morphine CARPU-JECT 4 MG/1 ML DISP.SYRIN IVPUSH PRN ×2 (03:29→22:01)
[2016-10-23] MEDS: dilTIAZem HCL 50 MG/10 ML - 10 ML VIAL IVPUSH PRN ×2 (05:13→06:53)
[2016-10-23] MEDS ORDERED: ALPRAZolam 0.25 MG TABLET PO ONE (06:00)
[2016-10-23] MEDS: CARBIDOPA/LEVODOPA 25/100 TABLET (FP) PO SCH ×3 (06:07→22:01)
[2016-10-23 07:42] LABS: BASOPHIL 0.8 % (0-2.0); EOSINOPHIL 0.2 % (0-4.5); MCH 27.5 pg (25.7-33.7); MCHC 32.7 g/dl (32.0-36.0); MEAN CELL VOLUME 84.4 fl (80-96); MEAN PLT VOLUME 7.8 fl (7.5-11.1); NEUTROPHILS 70.6 % (42.8-82.8); PLATELET COUNT 357 K/MM3 (134-434); WHITE BLOOD COUNT 15.7 K/mm3 (4.0-10.0)
[2016-10-23 08:51] LABS: ANION GAP 7 (8-16); CALCIUM 10.1 mg/dL (8.5-10.1); CO2 29 mmol/L (21-32); CREATININE 0.4 mg/dL (0.55-1.02); GLUCOSE,RANDOM 107 mg/dL (74-106); MAGNESIUM 1.7 mg/dL (1.8-2.4); PHOSPHOROUS 3.4 mg/dL (2.5-4.9)
[2016-10-23] MEDS: ACETAMINOPHEN WITH CODEINE 300MG/30MG TABLET PO PRN (08:54)
[2016-10-23] MEDS: METOPROLOL SUCCINATE 50 MG TAB.SR.24H (FP) PO SCH (09:01)
--- NOTE | 2016-10-23 11:46 | PN ---
Progress Note (short form) - Note Progress Note: S: had another episode of rvr this AM, now back in SR. no cp, sob, dizziness. c/o foot pain Current Medications Generic Name Dose Route Start Last Admin Trade Name Freq PRN Reason Stop Dose Admin Acetaminophen 650 mg 10/22/16 04:17 Tylenol - PO Q4H PRN FEVER OR PAIN Acetaminophen/Codeine Phosphate 1 tab 10/22/16 04:17 10/23/16 08:54 Tylenol # 3 - PO 1 tab Q4H PRN Administration Carbidopa/Levodopa 1 each 10/22/16 06:00 10/23/16 06:07 Sinemet 25/100 - PO 1 each TID MELANY Administration Diltiazem HCl 10 mg 10/21/16 12:26 10/23/16 06:53 Cardizem Injection - IVPUSH 10 mg Q1H PRN Administration TACHYCARDIA Diltiazem HCl 240 mg 10/22/16 10:00 10/23/16 09:01 Cardizem Cd - PO 240 mg DAILY MELANY Administration Heparin Sodium (Porcine) 1,000 unit 10/21/16 12:23 Heparin - IVPUSH PRN PRN Heparin Heparin Sodium (Porcine) 5,000 unit 10/21/16 12:23 Heparin - IVPUSH PRN PRN Heparin Heparin Sodium (Porcine) 25, 500 mls @ 16 mls/hr 10/21/16 12:30 10/22/16 15:40 000 unit/ Sodium Chloride IV 21 mls/hr TITR MELANY Administration Protocol 800 UNIT/HR Metoprolol Succinate 50 mg 10/21/16 12:00 10/23/16 09:01 Toprol Xl - PO 50 mg DAILY MELANY Administration Morphine Sulfate 2 mg 10/22/16 04:17 10/23/16 03:29 Morphine Injection - IVPUSH 2 mg Q4H PRN Administration PAIN LEVEL 6-10 Vital Signs Period Temp Pulse Resp BP Sys/Watkins Pulse Ox Last 24 Hr 97.6 F-99.5 F 76-172 18-22 102-155/52-98 95-98 Constitutional: Yes: cachectic, No Distress Eyes: No: Sclera Icterus HENT: No: Nasal Congestion Neck: No: Decreased ROM Respiratory: Yes: CTA Bilaterally. No: Accessory Muscle Use, Rales, Wheezes Gastrointestinal: Yes: Normal Bowel Sounds. No: Distention, Hepatomegaly, Palpable Mass, Tenderness Cardiovascular: Yes: Regular Rate and Rhythm JVD: No Heart Sounds: Yes: S1, S2. No: Gallop Murmur: No: Systolic Murmur, Diastolic Murmur Extremities: No: Cold, Cyanosis Edema: No Integumentary: No: Jaundice Neurological: Yes: Alert, Oriented (x3) Psychiatric: No: Agitated - Other Data Labs, Other Data: CBC, BMP 10/23/16 05:35 10/23/16 05:35 tele: afib with rvr this AM, now in sr CXR 10/18: clear lungs and pleura ECG 10/21, 10am: afib 157 bpm; normal axis/intervals; no path q's; mild NSST abn a/p: 71 yo smoker with htn, dystonia c/b frequent falls (recent medically managed trochanteric fx in July) who p/w possible ischemic foot/non-healing wounds, hospital course complicated by afib with RVR. Afib: -first episode, occurred on floor while here with foot wound -rapid HRs 10/21, responded to diltiazem PO and IVPs (on diltiazem CD 240 at home for BP) --> now in SR as of 10/22. -ecg nonischemic, trend serial enzymes -check echo now that HRs better controlled (to better assess LV fxn) --> pending -has been getting SQ hep (5K units BID) here for DVT ppx, O2 sat 100% on RA-- doubt PE --> started on heparin drip -CHADS VASC = 3, merits long-term AC for stroke prevention. however pt reports excessive falls at home including head injury more than once and trochanteric fx last month. hence her risk of falls with head injury is statistically signif greater than 3%/year risk of cardioembolic stroke. -will start UFH while here, as she is not ambulating including not going to use bathroom herself--will stop AC once she is ambulating (unless needs cardioversion), d/w'd dr hansen as well who is aware of plan - 10/22: lyte repletion, RVR occurred when magnesium was 1.3. now in SR. -10/23: brief episode rvr this am, now in sr. cont same dilt/bb. Monitor on tele. HTN: -overall reasonable control -cont home po diltiazem 240mg (prefer avoid 300mg dose given incr incidence constipation/leg swelling with this) -added metopr succinate 50mg qd 10/21. monitor pre-op clearance - patient being followed by vascular. Planned for angio to evaluate pad. - patient with rcri of 0 but with poor funcitonal status and pad. estimated risk likely low-intermediate. Ok to hold AC for procedure.
--- NOTE | 2016-10-23 14:44 | PN ---
Progress Note, Physician Chief Complaint: Ms Wilson complains that her foot has been neglected for 3 days and it hurts. No cp, sob, n/v. - Current Medication List Current Medications: Active Medications Acetaminophen (Tylenol -) 650 mg PO Q4H PRN PRN Reason: FEVER OR PAIN Acetaminophen/Codeine Phosphate (Tylenol # 3 -) 1 tab PO Q4H PRN Last Admin: 10/23/16 08:54 Dose: 1 tab Carbidopa/Levodopa (Sinemet 25/100 -) 1 each PO TID [facility] Last Admin: 10/23/16 06:07 Dose: 1 each Diltiazem HCl (Cardizem Injection -) 10 mg IVPUSH Q1H PRN PRN Reason: TACHYCARDIA Last Admin: 10/23/16 06:53 Dose: 10 mg Diltiazem HCl (Cardizem Cd -) 240 mg PO DAILY [facility] Last Admin: 10/23/16 09:01 Dose: 240 mg Heparin Sodium (Porcine) (Heparin -) 1,000 unit IVPUSH PRN PRN PRN Reason: Heparin Heparin Sodium (Porcine) (Heparin -) 5,000 unit IVPUSH PRN PRN PRN Reason: Heparin Heparin Sodium (Porcine) 25, (000 unit/ Sodium Chloride) 500 mls @ 16 mls/hr IV TITR MELANY; 800 UNIT/HR PRN Reason: Protocol Last Admin: 10/22/16 15:40 Dose: 21 mls/hr Metoprolol Succinate (Toprol Xl -) 50 mg PO DAILY [facility] Last Admin: 10/23/16 09:01 Dose: 50 mg Morphine Sulfate (Morphine Injection -) 2 mg IVPUSH Q4H PRN PRN Reason: PAIN LEVEL 6-10 Last Admin: 10/23/16 03:29 Dose: 2 mg - Objective Vital Signs: Vital Signs Temperature 98.1 F 10/23/16 10:00 Pulse Rate 87 10/23/16 10:00 Respiratory Rate 20 10/23/16 10:00 Blood Pressure 126/76 10/23/16 10:00 O2 Sat by Pulse Oximetry (%) 98 10/23/16 10:00 Constitutional: Yes: No Distress, Calm, Thin Cardiovascular: Yes: Pulse Irregular. No: Tachycardia, Gallop, Murmur, Rub Respiratory: Yes: Regular, CTA Bilaterally. No: Rales, Rhonchi, Wheezes Gastrointestinal: Yes: Normal Bowel Sounds, Soft. No: Distention, Tenderness Extremities: Yes: WNL Edema: No Labs: CBC, BMP 10/23/16 05:35 10/23/16 05:35 INR, PTT INR 1.24 (0.82-1.09) H 10/18/16 21:15 Problem List - Problems (1) Atrial fibrillation with rapid ventricular response Code(s): I48.91 - UNSPECIFIED ATRIAL FIBRILLATION (2) Gangrene Code(s): I96 - GANGRENE, NOT ELSEWHERE CLASSIFIED (3) Parkinson disease Code(s): G20 - PARKINSON'S DISEASE (4) Fall Code(s): W19.XXXA - UNSPECIFIED FALL, INITIAL ENCOUNTER Qualifiers: Encounter type: initial encounter Qualified Code(s): W19.XXXA - Unspecified fall, initial encounter (5) HTN (hypertension) Code(s): I10 - ESSENTIAL (PRIMARY) HYPERTENSION Assessment/Plan (1) Atrial fibrillation with rapid ventricular response Assessment/Plan: -rate controlled -had episode of bradycardia while sleeping -cardiology aware and following -on heparin gtt while not ambulating Code(s): I48.91 - UNSPECIFIED ATRIAL FIBRILLATION (2) Gangrene Assessment/Plan: -leukocytosis increasing -ID and vascular surgery consulted -will consult podiatry as well to evaluate -ID to start antibiotics Code(s): I96 - GANGRENE, NOT ELSEWHERE CLASSIFIED (3) Parkinson disease Assessment/Plan: -continue sinemet Code(s): G20 - PARKINSON'S DISEASE (4) Fall Assessment/Plan: -fall precautions -PT consult Code(s): W19.XXXA - UNSPECIFIED FALL, INITIAL ENCOUNTER Qualifiers: Encounter type: initial encounter Qualified Code(s): W19.XXXA - Unspecified fall, initial encounter (5) HTN (hypertension) Assessment/Plan: -continue diltiazem -stable Code(s): I10 - ESSENTIAL (PRIMARY) HYPERTENSION
[2016-10-23] MEDS: HEPARIN - 25,000 UNIT in SODIUM CHLORIDE 495 ML IV SCH (14:54)
--- NOTE | 2016-10-23 15:34 | PN ---
Progress Note, Physician History of Present Illness: increased pain other dickey says she is ok - Current Medication List Current Medications: Active Medications Acetaminophen (Tylenol -) 650 mg PO Q4H PRN PRN Reason: FEVER OR PAIN Acetaminophen/Codeine Phosphate (Tylenol # 3 -) 1 tab PO Q4H PRN Last Admin: 10/23/16 08:54 Dose: 1 tab Carbidopa/Levodopa (Sinemet 25/100 -) 1 each PO TID [facility] Last Admin: 10/23/16 14:54 Dose: 1 each Diltiazem HCl (Cardizem Injection -) 10 mg IVPUSH Q1H PRN PRN Reason: TACHYCARDIA Last Admin: 10/23/16 06:53 Dose: 10 mg Diltiazem HCl (Cardizem Cd -) 240 mg PO DAILY [facility] Last Admin: 10/23/16 09:01 Dose: 240 mg Heparin Sodium (Porcine) (Heparin -) 1,000 unit IVPUSH PRN PRN PRN Reason: Heparin Heparin Sodium (Porcine) (Heparin -) 5,000 unit IVPUSH PRN PRN PRN Reason: Heparin Heparin Sodium (Porcine) 25, (000 unit/ Sodium Chloride) 500 mls @ 16 mls/hr IV TITR MELANY; 800 UNIT/HR PRN Reason: Protocol Last Admin: 10/23/16 14:54 Dose: 21 mls/hr Aztreonam 1 gm/ Dextrose 50 mls @ 100 mls/hr IVPB Q8H-IV MELANY PRN Reason: Protocol Clindamycin Phosphate 300 mg/ (Dextrose) 50 mls @ 104 mls/hr IVPB Q6H-IV MELANY Metoprolol Succinate (Toprol Xl -) 50 mg PO DAILY [facility] Last Admin: 10/23/16 09:01 Dose: 50 mg Morphine Sulfate (Morphine Injection -) 2 mg IVPUSH Q4H PRN PRN Reason: PAIN LEVEL 6-10 Last Admin: 10/23/16 03:29 Dose: 2 mg - Objective Vital Signs: Vital Signs Temperature 98.2 F 10/23/16 14:00 Pulse Rate 71 10/23/16 14:00 Respiratory Rate 18 10/23/16 14:00 Blood Pressure 124/64 10/23/16 14:00 O2 Sat by Pulse Oximetry (%) 98 10/23/16 10:00 Constitutional: Yes: Calm, Mild Distress Cardiovascular: Yes: Regular Rate and Rhythm Respiratory: Yes: Regular, CTA Bilaterally Gastrointestinal: Yes: Normal Bowel Sounds, Soft Musculoskeletal: Yes: Other Extremities: Yes: Other Integumentary: Yes: Erythema, Other (mummified skin f the leg) Wound/Incision: Yes: Other Neurological: Yes: Alert Psychiatric: Yes: Alert Labs: CBC, BMP 10/23/16 05:35 10/23/16 05:35 INR, PTT INR 1.24 (0.82-1.09) H 10/18/16 21:15 Assessment/Plan roblem List - Problems (1) Atrial fibrillation with rapid ventricular response Code(s): I48.91 - UNSPECIFIED ATRIAL FIBRILLATION (2) Gangrene Code(s): I96 - GANGRENE, NOT ELSEWHERE CLASSIFIED (3) Parkinson disease Code(s): G20 - PARKINSON'S DISEASE (4) Fall Code(s): W19.XXXA - UNSPECIFIED FALL, INITIAL ENCOUNTER Qualifiers: Encounter type: initial encounter Qualified Code(s): W19.XXXA - Unspecified fall, initial encounter (5) HTN (hypertension) Code(s): I10 - ESSENTIAL (PRIMARY) HYPERTENSION pvd leukocytosis plan is to do angio tomorrow,suggestion is after the angio is done to do mri of the leg so as to know how much amputation or surgery is needed plan started patient on abx await for final plan continue current mgmt rest as per primary team
[2016-10-23] MEDS: CLINDAMYCIN 300 MG PREMIX IVPB 50 ML IVPB SCH ×2 (16:50→22:01)
[2016-10-23] MEDS: AZTREONAM 1 GM in DEXTROSE 5%-WATER - 50 ML IVPB SCH ×2 (16:50→17:01)
--- NOTE | 2016-10-23 20:17 | PN ---
Progress Note (short form) - Note Progress Note: VAscular Surgery Pt seen and examined. Right foot toe gangrene. 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 Will do angiogram alexey. Spoke to pt about all risks and benefits. Shaquille Wiggins DO
[2016-10-24] MEDS: AZTREONAM 1 GM in DEXTROSE 5%-WATER - 50 ML IVPB SCH ×3 (03:04→17:39)
[2016-10-24] MEDS: CLINDAMYCIN 300 MG PREMIX IVPB 50 ML IVPB SCH ×4 (03:22→21:03)
[2016-10-24] MEDS: morphine CARPU-JECT 4 MG/1 ML DISP.SYRIN IVPUSH PRN ×3 (03:59→14:07)
[2016-10-24] MEDS: CARBIDOPA/LEVODOPA 25/100 TABLET (FP) PO SCH ×3 (05:48→21:03)
[2016-10-24 07:45] LABS: MCH 27.6 pg (25.7-33.7); MCHC 32.9 g/dl (32.0-36.0); MEAN CELL VOLUME 83.9 fl (80-96); MEAN PLT VOLUME 7.8 fl (7.5-11.1); PLATELET COUNT 288 K/MM3 (134-434); RDW 13.9 % (11.6-15.6); WHITE BLOOD COUNT 11.1 K/mm3 (4.0-10.0)
[2016-10-24 08:39] LABS: ANION GAP 9 (8-16); CALCIUM 9.6 mg/dL (8.5-10.1); CO2 29 mmol/L (21-32); CREATININE 0.3 mg/dL (0.55-1.02); GLUCOSE,RANDOM 104 mg/dL (74-106); MAGNESIUM 1.7 mg/dL (1.8-2.4)
--- NOTE | 2016-10-24 08:58 | CONSULT ---
Consult - text type - Consultation Consultation Note: Podiatry Consultation: 71 year old F, history of Parkinson's and HTN, sent for admission for L foot gangrene. Patient admitted in July 2016 to hospital for hip fracture, noted deteriorating wounds L heel and 4th toe that never healed. Denies F/V/N/C/SOB/ CP. AFebrile, VSS. PMHx: Parkinson's, HTN, hip fx Meds: noted ALL: ASA, PCN DINA: L foot: pedal pulses non-palpable, TG warm-cool, CFT significantly delayed to all toes. There are dry gangrenous eschars on the lateral heel x 3 with significant tenderness to palpation. No drainage, no purulence, no fluctuance, no ascending cellulitis. There are dry eschars 2nd,3rd,4th digits with dry gangrene and mummification of 4th toe, no drainage, no purulence, no fluctuance , no ascending cellulitis, no signs of active infection. Significant tenderness to palpation. WBC: 11.1 Blood Cx: no growth x 5 days Imp: 71 year old PVD F with L foot dry gangrene 1. IV abx per ID 2. Plan for LLE angioplasty with Dr. Wiggins. Will discuss with him once vascular cleared next step for the foot. May need amputation procedure. 3. Will follow. Thanks for the consult. Austyn Can DPM
[2016-10-24] MEDS ORDERED: PT OWN MED DRAWER 7, Y5N ONE ×2 (09:04→20:45)
[2016-10-24] MEDS: METOPROLOL SUCCINATE 50 MG TAB.SR.24H (FP) PO SCH (09:15)
--- NOTE | 2016-10-24 10:12 | PN ---
Progress Note (short form) - Note Progress Note: S: no cp, sob, palps, dizziness. c/o foot pain Current Medications Generic Name Dose Route Start Last Admin Trade Name Freq PRN Reason Stop Dose Admin Acetaminophen 650 mg 10/22/16 04:17 Tylenol - PO Q4H PRN FEVER OR PAIN Acetaminophen/Codeine Phosphate 1 tab 10/22/16 04:17 10/23/16 08:54 Tylenol # 3 - PO 1 tab Q4H PRN Administration Carbidopa/Levodopa 1 each 10/22/16 06:00 10/24/16 05:48 Sinemet 25/100 - PO 1 each TID MELANY Administration Diltiazem HCl 10 mg 10/21/16 12:26 10/23/16 06:53 Cardizem Injection - IVPUSH 10 mg Q1H PRN Administration TACHYCARDIA Diltiazem HCl 240 mg 10/22/16 10:00 10/24/16 09:14 Cardizem Cd - PO 240 mg DAILY [facility]ANY Administration Heparin Sodium (Porcine) 1,000 unit 10/21/16 12:23 Heparin - IVPUSH PRN PRN Heparin Heparin Sodium (Porcine) 5,000 unit 10/21/16 12:23 Heparin - IVPUSH PRN PRN Heparin Heparin Sodium (Porcine) 25, 500 mls @ 16 mls/hr 10/21/16 12:30 10/23/16 14:54 000 unit/ Sodium Chloride IV 21 mls/hr TITR MELANY Administration Protocol 800 UNIT/HR Aztreonam 1 gm/ Dextrose 50 mls @ 100 mls/hr 10/23/16 15:30 10/24/16 09:14 IVPB 100 mls/hr Q8H-IV EMLANY Administration Protocol Clindamycin Phosphate 50 mls @ 100 mls/hr 10/23/16 15:30 10/24/16 09:14 Cleocin 300 Mg Premix Ivpb IVPB 100 mls/hr Q6H-IV MELANY Administration Metoprolol Succinate 50 mg 10/21/16 12:00 10/24/16 09:15 Toprol Xl - PO 50 mg DAILY [facility]ANY Administration Morphine Sulfate 2 mg 10/22/16 04:17 10/24/16 09:28 Morphine Injection - IVPUSH 2 mg Q4H PRN Administration PAIN LEVEL 6-10 Vital Signs Period Temp Pulse Resp BP Sys/Watkins Pulse Ox Last 24 Hr 98 F-98.6 F 71-77 18-20 98-124/48-83 98 Constitutional: Yes: cachectic, No Distress Eyes: No: Sclera Icterus HENT: No: Nasal Congestion Neck: No: Decreased ROM Respiratory: Yes: CTA Bilaterally. No: Accessory Muscle Use, Rales, Wheezes Gastrointestinal: Yes: Normal Bowel Sounds. No: Distention, Hepatomegaly, Palpable Mass, Tenderness Cardiovascular: Yes: Regular Rate and Rhythm JVD: No Heart Sounds: Yes: S1, S2. No: Gallop Murmur: No: Systolic Murmur, Diastolic Murmur Extremities: No: Cold, Cyanosis Edema: No Integumentary: No: Jaundice Neurological: Yes: Alert, Oriented (x3) Psychiatric: No: Agitated - Other Data Labs, Other Data: CBC, BMP 10/24/16 05:35 10/24/16 05:35 tele: sr, brief afib episode CXR 10/18: clear lungs and pleura ECG 10/21, 10am: afib 157 bpm; normal axis/intervals; no path q's; mild NSST abn a/p: 71 yo smoker with htn, dystonia c/b frequent falls (recent medically managed trochanteric fx in July) who p/w possible ischemic foot/non-healing wounds, hospital course complicated by afib with RVR. Afib: -first episode, occurred on floor while here with foot wound -rapid HRs 10/21, responded to diltiazem PO and IVPs (on diltiazem CD 240 at home for BP) --> now in SR as of 10/22. -ecg nonischemic, trend serial enzymes -check echo now that HRs better controlled (to better assess LV fxn) --> pending -has been getting SQ hep (5K units BID) here for DVT ppx, O2 sat 100% on RA-- doubt PE --> started on heparin drip -CHADS VASC = 3, merits half-way AC for stroke prevention. however pt reports excessive falls at home including head injury more than once and trochanteric fx last month. hence her risk of falls with head injury is statistically signif greater than 3%/year risk of cardioembolic stroke. -will start UFH while here, as she is not ambulating including not going to use bathroom herself--will stop AC once she is ambulating (unless needs cardioversion), d/w'd dr hansen as well who is aware of plan - 10/22: lyte repletion, RVR occurred when magnesium was 1.3. now in SR. -10/23: brief episode rvr this am, now in sr. cont same dilt/bb. Monitor on tele. -10/24: has brief episodes of afib but rate controlled and mostly remains in sr. cont same dilt/bb. HTN: -overall reasonable control -cont home po diltiazem 240mg (prefer avoid 300mg dose given incr incidence constipation/leg swelling with this) -added metopr succinate 50mg qd 10/21. monitor pre-op clearance - patient being followed by vascular. Planned for angio to evaluate pad. - patient with rcri of 0 but with poor funcitonal status and pad. estimated risk likely low-intermediate. Ok to hold AC for procedure.
[2016-10-24] MEDS: HEPARIN - 25,000 UNIT in SODIUM CHLORIDE 495 ML IV SCH (10:15)
--- NOTE | 2016-10-24 12:20 | PN ---
Progress Note, Physician Chief Complaint: Ms Wilson says she is doing well and is without complaint. No cp, sob, n/v. Currently not having pain in her foot - Current Medication List Current Medications: Active Medications Acetaminophen (Tylenol -) 650 mg PO Q4H PRN PRN Reason: FEVER OR PAIN Acetaminophen/Codeine Phosphate (Tylenol # 3 -) 1 tab PO Q4H PRN Last Admin: 10/23/16 08:54 Dose: 1 tab Carbidopa/Levodopa (Sinemet 25/100 -) 1 each PO TID [facility] Last Admin: 10/24/16 05:48 Dose: 1 each Diltiazem HCl (Cardizem Injection -) 10 mg IVPUSH Q1H PRN PRN Reason: TACHYCARDIA Last Admin: 10/23/16 06:53 Dose: 10 mg Diltiazem HCl (Cardizem Cd -) 240 mg PO DAILY [facility] Last Admin: 10/24/16 09:14 Dose: 240 mg Heparin Sodium (Porcine) (Heparin -) 1,000 unit IVPUSH PRN PRN PRN Reason: Heparin Heparin Sodium (Porcine) (Heparin -) 5,000 unit IVPUSH PRN PRN PRN Reason: Heparin Heparin Sodium (Porcine) 25, (000 unit/ Sodium Chloride) 500 mls @ 16 mls/hr IV TITR MELANY; 800 UNIT/HR PRN Reason: Protocol Last Admin: 10/23/16 14:54 Dose: 21 mls/hr Aztreonam 1 gm/ Dextrose 50 mls @ 100 mls/hr IVPB Q8H-IV MELANY PRN Reason: Protocol Last Admin: 10/24/16 09:14 Dose: 100 mls/hr Clindamycin Phosphate (Cleocin 300 Mg Premix Ivpb) 50 mls @ 100 mls/hr IVPB Q6H -IV [facility] Last Admin: 10/24/16 09:14 Dose: 100 mls/hr Magnesium Oxide (Mag-Ox -) 400 mg PO BID [facility] Metoprolol Succinate (Toprol Xl -) 50 mg PO DAILY [facility] Last Admin: 10/24/16 09:15 Dose: 50 mg Morphine Sulfate (Morphine Injection -) 2 mg IVPUSH Q4H PRN PRN Reason: PAIN LEVEL 6-10 Last Admin: 10/24/16 09:28 Dose: 2 mg - Objective Vital Signs: Vital Signs Temperature 98 F 10/24/16 09:00 Pulse Rate 80 10/24/16 09:00 Respiratory Rate 18 10/24/16 09:00 Blood Pressure 148/68 10/24/16 09:00 O2 Sat by Pulse Oximetry (%) 99 10/24/16 09:00 Constitutional: Yes: No Distress, Calm, Thin Cardiovascular: Yes: Pulse Irregular. No: Tachycardia, Gallop, Murmur, Rub Respiratory: Yes: Regular, CTA Bilaterally. No: Rales, Rhonchi, Wheezes Gastrointestinal: Yes: Normal Bowel Sounds, Soft. No: Distention, Tenderness Extremities: Yes: Cyanosis Edema: No Labs: CBC, BMP 10/24/16 05:35 10/24/16 05:35 INR, PTT INR 1.24 (0.82-1.09) H 10/18/16 21:15 Problem List - Problems (1) Atrial fibrillation with rapid ventricular response Code(s): I48.91 - UNSPECIFIED ATRIAL FIBRILLATION (2) Gangrene Code(s): I96 - GANGRENE, NOT ELSEWHERE CLASSIFIED (3) Parkinson disease Code(s): G20 - PARKINSON'S DISEASE (4) Fall Code(s): W19.XXXA - UNSPECIFIED FALL, INITIAL ENCOUNTER Qualifiers: Encounter type: initial encounter Qualified Code(s): W19.XXXA - Unspecified fall, initial encounter (5) HTN (hypertension) Code(s): I10 - ESSENTIAL (PRIMARY) HYPERTENSION Assessment/Plan (1) Atrial fibrillation with rapid ventricular response Assessment/Plan: -rate controlled -continue current regimen per cardiology -on heparin gtt while not ambulating Code(s): I48.91 - UNSPECIFIED ATRIAL FIBRILLATION (2) Gangrene Assessment/Plan: -on aztreonam and clindamycin per ID -leukocytosis improving -planning for aortogram with stent tonight, patient ate this am when brought food in Code(s): I96 - GANGRENE, NOT ELSEWHERE CLASSIFIED (3) Parkinson disease Assessment/Plan: -continue sinemet Code(s): G20 - PARKINSON'S DISEASE (4) Fall Assessment/Plan: -fall precautions -PT consulted and following Code(s): W19.XXXA - UNSPECIFIED FALL, INITIAL ENCOUNTER Qualifiers: Encounter type: initial encounter Qualified Code(s): W19.XXXA - Unspecified fall, initial encounter (5) HTN (hypertension) Assessment/Plan: -continue diltiazem -stable Code(s): I10 - ESSENTIAL (PRIMARY) HYPERTENSION
[2016-10-24] MEDS: MAGNESIUM OXIDE 400 MG TABLET (FP) PO SCH ×2 (12:30→21:03)
--- NOTE | 2016-10-24 14:28 | PN ---
Progress Note, Physician History of Present Illness: patient is refusing everything including abx was supposed to get angio today - Current Medication List Current Medications: Active Medications Acetaminophen (Tylenol -) 650 mg PO Q4H PRN PRN Reason: FEVER OR PAIN Acetaminophen/Codeine Phosphate (Tylenol # 3 -) 1 tab PO Q4H PRN Last Admin: 10/23/16 08:54 Dose: 1 tab Carbidopa/Levodopa (Sinemet 25/100 -) 1 each PO TID [facility] Last Admin: 10/24/16 14:07 Dose: 1 each Diltiazem HCl (Cardizem Injection -) 10 mg IVPUSH Q1H PRN PRN Reason: TACHYCARDIA Last Admin: 10/23/16 06:53 Dose: 10 mg Diltiazem HCl (Cardizem Cd -) 240 mg PO DAILY [facility] Last Admin: 10/24/16 09:14 Dose: 240 mg Heparin Sodium (Porcine) (Heparin -) 1,000 unit IVPUSH PRN PRN PRN Reason: Heparin Heparin Sodium (Porcine) (Heparin -) 5,000 unit IVPUSH PRN PRN PRN Reason: Heparin Heparin Sodium (Porcine) 25, (000 unit/ Sodium Chloride) 500 mls @ 16 mls/hr IV TITR MELANY; 800 UNIT/HR PRN Reason: Protocol Last Admin: 10/24/16 10:15 Dose: 21 mls/hr Aztreonam 1 gm/ Dextrose 50 mls @ 100 mls/hr IVPB Q8H-IV MELANY PRN Reason: Protocol Last Admin: 10/24/16 09:14 Dose: 100 mls/hr Clindamycin Phosphate (Cleocin 300 Mg Premix Ivpb) 50 mls @ 100 mls/hr IVPB Q6H -IV [facility] Last Admin: 10/24/16 09:14 Dose: 100 mls/hr Magnesium Oxide (Mag-Ox -) 400 mg PO BID [facility] Last Admin: 10/24/16 12:30 Dose: 400 mg Metoprolol Succinate (Toprol Xl -) 50 mg PO DAILY [facility] Last Admin: 10/24/16 09:15 Dose: 50 mg Morphine Sulfate (Morphine Injection -) 2 mg IVPUSH Q4H PRN PRN Reason: PAIN LEVEL 6-10 Last Admin: 10/24/16 09:28 Dose: 2 mg - Objective Vital Signs: Vital Signs Temperature 98 F 10/24/16 09:00 Pulse Rate 80 10/24/16 09:00 Respiratory Rate 18 10/24/16 09:00 Blood Pressure 148/68 10/24/16 09:00 O2 Sat by Pulse Oximetry (%) 99 10/24/16 09:00 Constitutional: Yes: No Distress, Calm Cardiovascular: Yes: Regular Rate and Rhythm Respiratory: Yes: Regular, CTA Bilaterally Gastrointestinal: Yes: Normal Bowel Sounds, Soft Musculoskeletal: Yes: Other Extremities: Yes: Other Neurological: Yes: Alert, Other Psychiatric: Yes: Alert Labs: CBC, BMP 10/24/16 05:35 10/24/16 05:35 INR, PTT INR 1.24 (0.82-1.09) H 10/18/16 21:15 Assessment/Plan roblem List - Problems (1) Atrial fibrillation with rapid ventricular response Code(s): I48.91 - UNSPECIFIED ATRIAL FIBRILLATION (2) Gangrene Code(s): I96 - GANGRENE, NOT ELSEWHERE CLASSIFIED (3) Parkinson disease Code(s): G20 - PARKINSON'S DISEASE (4) Fall Code(s): W19.XXXA - UNSPECIFIED FALL, INITIAL ENCOUNTER Qualifiers: Encounter type: initial encounter Qualified Code(s): W19.XXXA - Unspecified fall, initial encounter (5) HTN (hypertension) Code(s): I10 - ESSENTIAL (PRIMARY) HYPERTENSION pvd leukocytosis plan is to do angio tomorrow,suggestion is after the angio is done to do mri of the leg so as to know how much amputation or surgery is needed plan continue abx patient for angio await for final plan
--- NOTE | 2016-10-24 20:23 | PN ---
Progress Note (short form) - Note Progress Note: Vascular Surgery Pt seen and examined. For angioplasty alexey. Could not do today -- pt ate fried chicken and fries for lunch. Pt booked for 12pm alexeyDenis martínez dO
[2016-10-25] MEDS: morphine CARPU-JECT 4 MG/1 ML DISP.SYRIN IVPUSH PRN (00:44)
[2016-10-25] MEDS ORDERED: PT OWN MED DRAWER 7, Y5N ONE ×3 (01:20→17:03)
[2016-10-25] MEDS: AZTREONAM 1 GM in DEXTROSE 5%-WATER - 50 ML IVPB SCH ×3 (01:23→18:37)
[2016-10-25] MEDS: CLINDAMYCIN 300 MG PREMIX IVPB 50 ML IVPB SCH ×4 (04:24→21:07)
[2016-10-25] MEDS: CARBIDOPA/LEVODOPA 25/100 TABLET (FP) PO SCH ×2 (05:56→21:08)
[2016-10-25 08:10] LABS: BASOPHIL 0.3 % (0-2.0); EOSINOPHIL 0.3 % (0-4.5); MCH 27.2 pg (25.7-33.7); MCHC 32.4 g/dl (32.0-36.0); MEAN CELL VOLUME 83.8 fl (80-96); MEAN PLT VOLUME 7.9 fl (7.5-11.1); PLATELET COUNT 339 K/MM3 (134-434); RDW 14.2 % (11.6-15.6); WHITE BLOOD COUNT 12.2 K/mm3 (4.0-10.0)
[2016-10-25 08:46] LABS: ANION GAP 11 (8-16); CALCIUM 10.1 mg/dL (8.5-10.1); CO2 27 mmol/L (21-32); CREATININE 0.3 mg/dL (0.55-1.02); GLUCOSE,RANDOM 74 mg/dL (74-106); MAGNESIUM 1.8 mg/dL (1.8-2.4); PHOSPHOROUS 3.6 mg/dL (2.5-4.9)
[2016-10-25] MEDS: MAGNESIUM OXIDE 400 MG TABLET (FP) PO SCH ×2 (09:42→21:07)
[2016-10-25] MEDS: METOPROLOL SUCCINATE 50 MG TAB.SR.24H (FP) PO SCH (09:42)
--- NOTE | 2016-10-25 10:14 | PN ---
Progress Note (short form) - Note Progress Note: S: no cp, sob, palps, dizziness. c/o foot pain Current Medications Generic Name Dose Route Start Last Admin Trade Name Freq PRN Reason Stop Dose Admin Acetaminophen 650 mg 10/22/16 04:17 Tylenol - PO Q4H PRN FEVER OR PAIN Carbidopa/Levodopa 1 each 10/22/16 06:00 10/25/16 05:56 Sinemet 25/100 - PO 1 each TID MELANY Administration Diltiazem HCl 10 mg 10/21/16 12:26 10/23/16 06:53 Cardizem Injection - IVPUSH 10 mg Q1H PRN Administration TACHYCARDIA Diltiazem HCl 240 mg 10/22/16 10:00 10/25/16 09:42 Cardizem Cd - PO 240 mg DAILY M[facility]ANY Administration Heparin Sodium (Porcine) 1,000 unit 10/21/16 12:23 Heparin - IVPUSH PRN PRN Heparin Heparin Sodium (Porcine) 5,000 unit 10/21/16 12:23 Heparin - IVPUSH PRN PRN Heparin Heparin Sodium (Porcine) 25, 500 mls @ 16 mls/hr 10/21/16 12:30 10/24/16 10:15 000 unit/ Sodium Chloride IV 21 mls/hr TITR MEALNY Administration Protocol 800 UNIT/HR Aztreonam 1 gm/ Dextrose 50 mls @ 100 mls/hr 10/23/16 15:30 10/25/16 09:41 IVPB 100 mls/hr Q8H-IV MELANY Administration Protocol Clindamycin Phosphate 50 mls @ 100 mls/hr 10/23/16 15:30 10/25/16 09:41 Cleocin 300 Mg Premix Ivpb IVPB 100 mls/hr Q6H-IV MELANY Administration Magnesium Oxide 400 mg 10/24/16 12:00 10/25/16 09:42 Mag-Ox - PO 400 mg BID MELANY Administration Metoprolol Succinate 50 mg 10/21/16 12:00 10/25/16 09:42 Toprol Xl - PO 50 mg DAILY MELANY Administration Vital Signs Period Temp Pulse Resp BP Sys/Watkins Pulse Ox Last 24 Hr 97.6 F-98.5 F 60-93 16-18 121-166/55-69 98 Constitutional: Yes: cachectic, No Distress Eyes: No: Sclera Icterus HENT: No: Nasal Congestion Neck: No: Decreased ROM Respiratory: Yes: CTA Bilaterally. No: Accessory Muscle Use, Rales, Wheezes Gastrointestinal: Yes: Normal Bowel Sounds. No: Distention, Hepatomegaly, Palpable Mass, Tenderness Cardiovascular: Yes: Regular Rate and Rhythm JVD: No Heart Sounds: Yes: S1, S2. No: Gallop Murmur: No: Systolic Murmur, Diastolic Murmur Extremities: No: Cold, Cyanosis Edema: No Integumentary: No: Jaundice Neurological: Yes: Alert, Oriented (x3) Psychiatric: No: Agitated - Other Data Labs, Other Data: CBC, BMP 10/25/16 05:35 10/25/16 05:35 tele: sr, brief afib episode CXR 10/18: clear lungs and pleura ECG 10/21, 10am: afib 157 bpm; normal axis/intervals; no path q's; mild NSST abn echo 10/2016: nl lv/rv, mod mr, mild tr a/p: 71 yo smoker with htn, dystonia c/b frequent falls (recent medically managed trochanteric fx in July) who p/w possible ischemic foot/non-healing wounds, hospital course complicated by afib with RVR. Afib: -first episode, occurred on floor while here with foot wound -rapid HRs 10/21, responded to diltiazem PO and IVPs (on diltiazem CD 240 at home for BP) --> now in SR as of 10/22. -ecg nonischemic, trend serial enzymes -check echo now that HRs better controlled (to better assess LV fxn) --> pending -has been getting SQ hep (5K units BID) here for DVT ppx, O2 sat 100% on RA-- doubt PE --> started on heparin drip -CHADS VASC = 3, merits fpc AC for stroke prevention. however pt reports excessive falls at home including head injury more than once and trochanteric fx last month. hence her risk of falls with head injury is statistically signif greater than 3%/year risk of cardioembolic stroke. -will start UFH while here, as she is not ambulating including not going to use bathroom herself--will stop AC once she is ambulating (unless needs cardioversion), d/w'd dr hansen as well who is aware of plan - 10/22: lyte repletion, RVR occurred when magnesium was 1.3. now in SR. -10/23: brief episode rvr this am, now in sr. cont same dilt/bb. Monitor on tele. -10/24-4: has brief episodes of afib but rate controlled and mostly remains in sr. cont same dilt/bb. HTN: -overall reasonable control -cont home po diltiazem 240mg (prefer avoid 300mg dose given incr incidence constipation/leg swelling with this) -added metopr succinate 50mg qd 10/21. monitor pre-op clearance - patient being followed by vascular. Planned for angio to evaluate pad. - patient with rcri of 0 but with poor funcitonal status and pad. estimated risk likely low-intermediate. Ok to hold AC for procedure.
[2016-10-25] MEDS ORDERED: HEPARIN NA (PORCINE) 5,000 UNITS/ML 1ML VIAL ONE (12:38)
[2016-10-25] MEDS ORDERED: LIDOCAINE HCL 1%, 10 MG/ML (20ML VIAL) ONE (12:38)
[2016-10-25] MEDS ORDERED: ceFAZolin SODIUM 1 GM VIAL IVPB ONE (13:02)
[2016-10-25] MEDS ORDERED: LIDOCAINE HCL 1%, 10 MG/ML (20ML VIAL) IJ ONE (13:04)
--- NOTE | 2016-10-25 13:59 | OP ---
Operative Note - Note: Operative Date: 10/25/16 Pre-Operative Diagnosis: Left lower ext ulcers Operation: aortogram, LLE angiogram, Left common iliac, external iliac angioplasty with stent placement. 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
[2016-10-25] MEDS ORDERED: HEPARIN NA (PORCINE) 5,000 UNITS/ML 1ML VIAL IVPUSH PRN ×2 (14:04→17:03)
[2016-10-25] MEDS ORDERED: dilTIAZem HCL 50 MG/10 ML - 10 ML VIAL IVPUSH PRN (14:21)
[2016-10-25] MEDS: LACTATED RINGERS SOLUTION 1,000 ML IV SCH (14:35)
[2016-10-25] MEDS ORDERED: ONDANSETRON 4 MG/2 ML VIAL IVPUSH PRN (14:37)
--- NOTE | 2016-10-25 16:37 | PN ---
Progress Note, Physician Chief Complaint: Ms Wilson is s/p procedure and is sedated. Unable to obtain subjective. - Current Medication List Current Medications: Active Medications Acetaminophen (Tylenol -) 650 mg PO Q4H PRN PRN Reason: FEVER OR PAIN Carbidopa/Levodopa (Sinemet 25/100 -) 1 each PO TID MELANY Diltiazem HCl (Cardizem Cd -) 240 mg PO DAILY MELANY Diltiazem HCl (Cardizem Injection -) 10 mg IVPUSH Q1H PRN PRN Reason: TACHYCARDIA Fentanyl (Sublimaze Injection -) 50 mcg IVPUSH [id number] PRN PRN Reason: PAIN Stop: 10/28/16 14:38 Heparin Sodium (Porcine) (Heparin -) 5,000 unit IVPUSH PRN PRN PRN Reason: Heparin Heparin Sodium (Porcine) (Heparin -) 1,000 unit IVPUSH PRN PRN PRN Reason: Heparin Heparin Sodium (Porcine) (Heparin -) 5,000 unit IVPUSH PRN PRN PRN Reason: Heparin Heparin Sodium/Dextrose (Heparin Infusion -) 500 mls @ 16 mls/hr IVPB TITR MELANY ; 800 UNITS/HR PRN Reason: Protocol Aztreonam 1 gm/ Dextrose 50 mls @ 100 mls/hr IVPB Q8H-IV MELANY PRN Reason: Protocol Clindamycin Phosphate (Cleocin 300 Mg Premix Ivpb) 50 mls @ 100 mls/hr IVPB Q6H -IV MELANY Lactated Ringer's (Lactated Ringers Solution) 1,000 mls @ 125 mls/hr IV ASDIR MELANY Magnesium Oxide (Mag-Ox -) 400 mg PO BID MELANY Metoprolol Succinate (Toprol Xl -) 50 mg PO DAILY MELANY Ondansetron HCl (Zofran Injection) 4 mg IVPUSH Q6H PRN PRN Reason: NAUSEA AND/OR VOMITING Stop: 10/25/16 20:38 - Objective Vital Signs: Vital Signs Temperature 98.1 F 10/25/16 15:00 Pulse Rate 72 10/25/16 15:00 Respiratory Rate 18 10/25/16 15:00 Blood Pressure 130/56 10/25/16 15:00 O2 Sat by Pulse Oximetry (%) 100 10/25/16 14:45 Constitutional: Yes: No Distress, Calm, Thin Cardiovascular: Yes: Pulse Irregular. No: Tachycardia, Gallop, Murmur, Rub Respiratory: Yes: Regular, CTA Bilaterally. No: Rales, Rhonchi, Wheezes Gastrointestinal: Yes: Normal Bowel Sounds, Soft. No: Distention, Tenderness Extremities: Yes: Other (gangrene) Edema: No Labs: CBC, BMP 10/25/16 05:35 10/25/16 05:35 INR, PTT INR 1.24 (0.82-1.09) H 10/18/16 21:15 Problem List - Problems (1) Atrial fibrillation with rapid ventricular response Code(s): I48.91 - UNSPECIFIED ATRIAL FIBRILLATION (2) Gangrene Code(s): I96 - GANGRENE, NOT ELSEWHERE CLASSIFIED (3) Parkinson disease Code(s): G20 - PARKINSON'S DISEASE (4) Fall Code(s): W19.XXXA - UNSPECIFIED FALL, INITIAL ENCOUNTER Qualifiers: Encounter type: initial encounter Qualified Code(s): W19.XXXA - Unspecified fall, initial encounter (5) HTN (hypertension) Code(s): I10 - ESSENTIAL (PRIMARY) HYPERTENSION Assessment/Plan (1) Atrial fibrillation with rapid ventricular response Assessment/Plan: -rate controlled -continue current regimen per cardiology -on heparin gtt while not ambulating Code(s): I48.91 - UNSPECIFIED ATRIAL FIBRILLATION (2) Gangrene Assessment/Plan: -continue antibiotics per ID recommendation -s/p aortogram with stenting -monitor improvement -if does not improve, may need amputation -vascular surgery and podiatry following Code(s): I96 - GANGRENE, NOT ELSEWHERE CLASSIFIED (3) Parkinson disease Assessment/Plan: -continue sinemet Code(s): G20 - PARKINSON'S DISEASE (4) Fall Assessment/Plan: -fall precautions -PT consulted and following Code(s): W19.XXXA - UNSPECIFIED FALL, INITIAL ENCOUNTER Qualifiers: Encounter type: initial encounter Qualified Code(s): W19.XXXA - Unspecified fall, initial encounter (5) HTN (hypertension) Assessment/Plan: -continue diltiazem -stable Code(s): I10 - ESSENTIAL (PRIMARY) HYPERTENSION
[2016-10-25] MEDS: HEPARIN INFUSION - 500 ML IVPB SCH (17:46)
--- NOTE | 2016-10-25 18:41 | PN ---
Progress Note, Physician History of Present Illness: patient doing much better angio done with stent placement in the leg in the room patient feels good - Current Medication List Current Medications: Active Medications Acetaminophen (Tylenol -) 650 mg PO Q4H PRN PRN Reason: FEVER OR PAIN Carbidopa/Levodopa (Sinemet 25/100 -) 1 each PO TID MELANY Diltiazem HCl (Cardizem Cd -) 240 mg PO DAILY MELANY Diltiazem HCl (Cardizem Injection -) 10 mg IVPUSH Q1H PRN PRN Reason: TACHYCARDIA Fentanyl (Sublimaze Injection -) 50 mcg IVPUSH [id number] PRN PRN Reason: PAIN Stop: 10/28/16 14:38 Heparin Sodium (Porcine) (Heparin -) 5,000 unit IVPUSH PRN PRN PRN Reason: Heparin Heparin Sodium (Porcine) (Heparin -) 1,000 unit IVPUSH PRN PRN PRN Reason: Heparin Heparin Sodium (Porcine) (Heparin -) 5,000 unit IVPUSH PRN PRN PRN Reason: Heparin Heparin Sodium/Dextrose (Heparin Infusion -) 500 mls @ 16 mls/hr IVPB TITR MELANY ; 800 UNITS/HR PRN Reason: Protocol Last Admin: 10/25/16 17:46 Dose: 16 mls/hr Aztreonam 1 gm/ Dextrose 50 mls @ 100 mls/hr IVPB Q8H-IV MELANY PRN Reason: Protocol Last Admin: 10/25/16 18:37 Dose: 100 mls/hr Clindamycin Phosphate (Cleocin 300 Mg Premix Ivpb) 50 mls @ 100 mls/hr IVPB Q6H -IV MELANY Last Admin: 10/25/16 17:09 Dose: 100 mls/hr Lactated Ringer's (Lactated Ringers Solution) 1,000 mls @ 125 mls/hr IV ASDIR MELANY Last Admin: 10/25/16 14:35 Dose: 125 mls/hr Magnesium Oxide (Mag-Ox -) 400 mg PO BID MELANY Metoprolol Succinate (Toprol Xl -) 50 mg PO DAILY MELANY Ondansetron HCl (Zofran Injection) 4 mg IVPUSH Q6H PRN PRN Reason: NAUSEA AND/OR VOMITING Stop: 10/25/16 20:38 - Objective Vital Signs: Vital Signs Temperature 98.1 F 10/25/16 15:00 Pulse Rate 72 10/25/16 15:00 Respiratory Rate 18 10/25/16 15:00 Blood Pressure 130/56 10/25/16 15:00 O2 Sat by Pulse Oximetry (%) 100 10/25/16 14:45 Constitutional: Yes: No Distress, Calm HENT: Yes: Atraumatic Cardiovascular: Yes: Regular Rate and Rhythm Respiratory: Yes: Regular, CTA Bilaterally Gastrointestinal: Yes: Normal Bowel Sounds, Soft Musculoskeletal: Yes: Other Extremities: Yes: Other (gangrene of the toes) Integumentary: Yes: Other Wound/Incision: Yes: Other (gangrene of the toes) Neurological: Yes: Alert, Other Psychiatric: Yes: Alert Labs: CBC, BMP 10/25/16 05:35 10/25/16 05:35 INR, PTT INR 1.24 (0.82-1.09) H 10/18/16 21:15 Assessment/Plan roblem List - Problems (1) Atrial fibrillation with rapid ventricular response Code(s): I48.91 - UNSPECIFIED ATRIAL FIBRILLATION (2) Gangrene Code(s): I96 - GANGRENE, NOT ELSEWHERE CLASSIFIED (3) Parkinson disease Code(s): G20 - PARKINSON'S DISEASE (4) Fall Code(s): W19.XXXA - UNSPECIFIED FALL, INITIAL ENCOUNTER Qualifiers: Encounter type: initial encounter Qualified Code(s): W19.XXXA - Unspecified fall, initial encounter (5) HTN (hypertension) Code(s): I10 - ESSENTIAL (PRIMARY) HYPERTENSION pvd leukocytosis plan continue abx rest as per primary and vascular
[2016-10-25] MEDS: HEPARIN NA (PORCINE) 5,000 UNITS/ML 1ML VIAL IVPUSH PRN (22:17)
[2016-10-26] MEDS: AZTREONAM 1 GM in DEXTROSE 5%-WATER - 50 ML IVPB SCH ×3 (03:00→17:05)
[2016-10-26] MEDS ORDERED: PT OWN MED DRAWER 7, Y5N ONE ×2 (03:08→16:41)
[2016-10-26] MEDS: CLINDAMYCIN 300 MG PREMIX IVPB 50 ML IVPB SCH ×4 (03:17→21:17)
[2016-10-26] MEDS: ACETAMINOPHEN 325 MG TABLET (FP) PO PRN (04:34)
[2016-10-26] MEDS: CARBIDOPA/LEVODOPA 25/100 TABLET (FP) PO SCH ×3 (06:21→21:17)
[2016-10-26 08:11] LABS: MCH 27.3 pg (25.7-33.7); MCHC 32.6 g/dl (32.0-36.0); MEAN CELL VOLUME 83.9 fl (80-96); MEAN PLT VOLUME 7.3 fl (7.5-11.1); PLATELET COUNT 329 K/MM3 (134-434); RDW 14.1 % (11.6-15.6); WHITE BLOOD COUNT 14.3 K/mm3 (4.0-10.0)
[2016-10-26 08:49] LABS: ANION GAP 10 (8-16); CALCIUM 9.9 mg/dL (8.5-10.1); CO2 30 mmol/L (21-32); GLUCOSE,RANDOM 99 mg/dL (74-106); MAGNESIUM 1.9 mg/dL (1.8-2.4)
[2016-10-26 09:00] LABS: CREATININE 0.3 mg/dL (0.55-1.02); PHOSPHOROUS 3.5 mg/dL (2.5-4.9)
[2016-10-26] MEDS ORDERED: morphine CARPU-JECT 4 MG/1 ML DISP.SYRIN IVPUSH PRN (09:06)
[2016-10-26] MEDS: METOPROLOL SUCCINATE 50 MG TAB.SR.24H (FP) PO SCH (09:28)
[2016-10-26] MEDS: MAGNESIUM OXIDE 400 MG TABLET (FP) PO SCH ×2 (09:28→21:17)
[2016-10-26] MEDS: ACETAMINOPHEN WITH CODEINE 300MG/30MG TABLET PO PRN ×2 (09:40→21:18)
--- NOTE | 2016-10-26 10:43 | PN ---
Progress Note, Physician History of Present Illness: Still with foot pain No palpitations - Current Medication List Current Medications: Active Medications Acetaminophen (Tylenol -) 650 mg PO Q4H PRN PRN Reason: FEVER OR PAIN Last Admin: 10/26/16 04:34 Dose: 650 mg Acetaminophen/Codeine Phosphate (Tylenol # 3 -) 1 tab PO Q6H PRN PRN Reason: FEVER OR PAIN Last Admin: 10/26/16 09:40 Dose: 1 tab Carbidopa/Levodopa (Sinemet 25/100 -) 1 each PO TID MELANY Last Admin: 10/26/16 06:21 Dose: 1 each Diltiazem HCl (Cardizem Cd -) 240 mg PO DAILY MELANY Last Admin: 10/26/16 09:28 Dose: 240 mg Diltiazem HCl (Cardizem Injection -) 10 mg IVPUSH Q1H PRN PRN Reason: TACHYCARDIA Fentanyl (Sublimaze Injection -) 50 mcg IVPUSH [id number] PRN PRN Reason: PAIN Stop: 10/28/16 14:38 Heparin Sodium (Porcine) (Heparin -) 5,000 unit IVPUSH PRN PRN PRN Reason: Heparin Heparin Sodium (Porcine) (Heparin -) 1,000 unit IVPUSH PRN PRN PRN Reason: Heparin Last Admin: 10/25/16 22:17 Dose: 1,000 unit Heparin Sodium (Porcine) (Heparin -) 5,000 unit IVPUSH PRN PRN PRN Reason: Heparin Heparin Sodium/Dextrose (Heparin Infusion -) 500 mls @ 16 mls/hr IVPB TITR MELANY ; 800 UNITS/HR PRN Reason: Protocol Last Titration: 10/25/16 22:18 Dose: 900 units/hr Aztreonam 1 gm/ Dextrose 50 mls @ 100 mls/hr IVPB Q8H-IV MELANY PRN Reason: Protocol Last Admin: 10/26/16 09:29 Dose: 100 mls/hr Clindamycin Phosphate (Cleocin 300 Mg Premix Ivpb) 50 mls @ 100 mls/hr IVPB Q6H -IV MELANY Last Admin: 10/26/16 09:29 Dose: 100 mls/hr Lactated Ringer's (Lactated Ringers Solution) 1,000 mls @ 125 mls/hr IV ASDIR MELANY Last Admin: 10/25/16 14:35 Dose: 125 mls/hr Magnesium Oxide (Mag-Ox -) 400 mg PO BID [facility] Last Admin: 10/26/16 09:28 Dose: 400 mg Metoprolol Succinate (Toprol Xl -) 50 mg PO DAILY [facility] Last Admin: 10/26/16 09:28 Dose: 50 mg Morphine Sulfate (Morphine Injection -) 2 mg IVPUSH Q4H PRN PRN Reason: PAIN - Objective Vital Signs: Vital Signs Temperature 99.2 F 10/26/16 02:00 Pulse Rate 120 H 10/26/16 02:00 Respiratory Rate 18 10/26/16 02:00 Blood Pressure 129/84 10/26/16 02:00 O2 Sat by Pulse Oximetry (%) 97 10/25/16 21:00 Constitutional: Yes: No Distress HENT: Yes: WNL Neck: Yes: WNL Cardiovascular: Yes: Pulse Irregular Respiratory: Yes: CTA Bilaterally Gastrointestinal: Yes: Normal Bowel Sounds Extremities: Yes: Other (Right foot ischemic toe) Edema: No Labs: CBC, BMP 10/26/16 05:55 10/26/16 05:55 INR, PTT INR 1.24 (0.82-1.09) H 10/18/16 21:15 Assessment/Plan a/p: 71 yo smoker with htn, dystonia c/b frequent falls (recent medically managed trochanteric fx in July) who p/w possible ischemic foot/non-healing wounds, hospital course complicated by afib with RVR. Afib: -first episode, occurred on floor while here with foot wound -rapid HRs 10/21, responded to diltiazem PO and IVPs (on diltiazem CD 240 at home for BP) --> now in SR as of 10/22. -ecg nonischemic, trend serial enzymes -check echo now that HRs better controlled (to better assess LV fxn) --> report reviewed showing grossly normal biventriuclar size and function. Normal LA size and moderate MR. -has been getting SQ hep (5K units BID) here for DVT ppx, O2 sat 100% on RA-- doubt PE --> started on heparin drip -CHADS VASC = 3, merits senior living AC for stroke prevention. however pt reports excessive falls at home including head injury more than once and trochanteric fx last month. hence her risk of falls with head injury is statistically signif greater than 3%/year risk of cardioembolic stroke. -will start UFH while here, as she is not ambulating including not going to use bathroom herself--will stop AC once she is ambulating (unless needs cardioversion), d/w'd dr hansen as well who is aware of plan - 10/22: lyte repletion, RVR occurred when magnesium was 1.3. now in SR. -10/23: brief episode rvr this am, now in sr. cont same dilt/bb. Monitor on tele. -10/24-: has brief episodes of afib but rate controlled and mostly remains in sr. cont same dilt/bb. 10/26: Stable. Continue Dilt/BB and UFH HTN: -overall reasonable control -cont home po diltiazem 240mg (prefer avoid 300mg dose given incr incidence constipation/leg swelling with this) -added metopr succinate 50mg qd 10/21. monitor pre-op clearance - patient being followed by vascular. Planned for angio to evaluate pad. - patient with rcri of 0 but with poor funcitonal status and pad. estimated risk likely low-intermediate. Ok to hold AC for procedure.
--- NOTE | 2016-10-26 10:46 | PN ---
Progress Note, Physician Chief Complaint: INFECTIOUS DISEASE History of Present Illness: Pt c/o pain in leg s/p angio/stent placement Otherwise no specific complaints - Current Medication List Current Medications: Active Medications Acetaminophen (Tylenol -) 650 mg PO Q4H PRN PRN Reason: FEVER OR PAIN Last Admin: 10/26/16 04:34 Dose: 650 mg Acetaminophen/Codeine Phosphate (Tylenol # 3 -) 1 tab PO Q6H PRN PRN Reason: FEVER OR PAIN Last Admin: 10/26/16 09:40 Dose: 1 tab Carbidopa/Levodopa (Sinemet 25/100 -) 1 each PO TID MELANY Last Admin: 10/26/16 06:21 Dose: 1 each Diltiazem HCl (Cardizem Cd -) 240 mg PO DAILY MELANY Last Admin: 10/26/16 09:28 Dose: 240 mg Diltiazem HCl (Cardizem Injection -) 10 mg IVPUSH Q1H PRN PRN Reason: TACHYCARDIA Fentanyl (Sublimaze Injection -) 50 mcg IVPUSH [id number] PRN PRN Reason: PAIN Stop: 10/28/16 14:38 Heparin Sodium (Porcine) (Heparin -) 5,000 unit IVPUSH PRN PRN PRN Reason: Heparin Heparin Sodium (Porcine) (Heparin -) 1,000 unit IVPUSH PRN PRN PRN Reason: Heparin Last Admin: 10/25/16 22:17 Dose: 1,000 unit Heparin Sodium (Porcine) (Heparin -) 5,000 unit IVPUSH PRN PRN PRN Reason: Heparin Heparin Sodium/Dextrose (Heparin Infusion -) 500 mls @ 16 mls/hr IVPB TITR MELANY ; 800 UNITS/HR PRN Reason: Protocol Last Titration: 10/25/16 22:18 Dose: 900 units/hr Aztreonam 1 gm/ Dextrose 50 mls @ 100 mls/hr IVPB Q8H-IV MELANY PRN Reason: Protocol Last Admin: 10/26/16 09:29 Dose: 100 mls/hr Clindamycin Phosphate (Cleocin 300 Mg Premix Ivpb) 50 mls @ 100 mls/hr IVPB Q6H -IV MELANY Last Admin: 10/26/16 09:29 Dose: 100 mls/hr Lactated Ringer's (Lactated Ringers Solution) 1,000 mls @ 125 mls/hr IV ASDIR MELANY Last Admin: 10/25/16 14:35 Dose: 125 mls/hr Magnesium Oxide (Mag-Ox -) 400 mg PO BID [facility] Last Admin: 10/26/16 09:28 Dose: 400 mg Metoprolol Succinate (Toprol Xl -) 50 mg PO DAILY [facility] Last Admin: 10/26/16 09:28 Dose: 50 mg Morphine Sulfate (Morphine Injection -) 2 mg IVPUSH Q4H PRN PRN Reason: PAIN - Objective Vital Signs: Vital Signs Temperature 99.2 F 10/26/16 02:00 Pulse Rate 120 H 10/26/16 02:00 Respiratory Rate 18 10/26/16 02:00 Blood Pressure 129/84 10/26/16 02:00 O2 Sat by Pulse Oximetry (%) 97 10/25/16 21:00 Constitutional: Yes: No Distress HENT: Yes: WNL Neck: Yes: Supple Cardiovascular: Yes: Regular Rate and Rhythm Respiratory: Yes: WNL, Regular Gastrointestinal: Yes: WNL, Normal Bowel Sounds Genitourinary: Yes: WNL Extremities: Yes: Other (Gangrenous toes) Neurological: Yes: Alert Psychiatric: Yes: WNL Labs: CBC, BMP 10/26/16 05:55 10/26/16 05:55 INR, PTT INR 1.24 (0.82-1.09) H 10/18/16 21:15 CBC WBC 14.3 K/mm3 (4.0-10.0) H 10/26/16 05:55 RBC 3.70 M/mm3 (3.60-5.2) 10/26/16 05:55 Hgb 10.1 GM/dL (10.7-15.3) L 10/26/16 05:55 Hct 31.0 % (32.4-45.2) L 10/26/16 05:55 MCV 83.9 fl (80-96) 10/26/16 05:55 MCH 27.3 pg (25.7-33.7) 10/26/16 05:55 MCHC 32.6 g/dl (32.0-36.0) 10/26/16 05:55 RDW 14.1 % (11.6-15.6) 10/26/16 05:55 Plt Count 329 K/MM3 (134-434) 10/26/16 05:55 MPV 7.3 fl (7.5-11.1) L 10/26/16 05:55 Neutrophils % 74.0 % (42.8-82.8) 10/25/16 05:35 Lymphocytes % 19.5 % (8-40) 10/25/16 05:35 Monocytes % 5.9 % (3.8-10.2) 10/25/16 05:35 Eosinophils % 0.3 % (0-4.5) 10/25/16 05:35 Basophils % 0.3 % (0-2.0) 10/25/16 05:35 Problem List - Problems (1) Gangrene Code(s): I96 - GANGRENE, NOT ELSEWHERE CLASSIFIED (2) Peripheral vascular disease Code(s): I73.9 - PERIPHERAL VASCULAR DISEASE, UNSPECIFIED (3) Leukocytosis Code(s): D72.829 - ELEVATED WHITE BLOOD CELL COUNT, UNSPECIFIED Assessment/Plan Left foot gangrene of toes s/p angioplasy, stent placement Pt currently stable, afebrile wbc mildly elevated - continue current antibiotics - monitor wbc - surgical f/u
[2016-10-26] MEDS: HEPARIN NA (PORCINE) 5,000 UNITS/ML 1ML VIAL IVPUSH PRN (11:00)
--- NOTE | 2016-10-26 12:11 | PN ---
Progress Note, Physician History of Present Illness: Patient with a lot of pain in left foot. Notes breathing feeling OK. No fevers overnight. - Current Medication List Current Medications: Active Medications Acetaminophen (Tylenol -) 650 mg PO Q4H PRN PRN Reason: FEVER OR PAIN Last Admin: 10/26/16 04:34 Dose: 650 mg Acetaminophen/Codeine Phosphate (Tylenol # 3 -) 1 tab PO Q6H PRN PRN Reason: FEVER OR PAIN Last Admin: 10/26/16 09:40 Dose: 1 tab Carbidopa/Levodopa (Sinemet 25/100 -) 1 each PO TID MELANY Last Admin: 10/26/16 06:21 Dose: 1 each Diltiazem HCl (Cardizem Cd -) 240 mg PO DAILY MELANY Last Admin: 10/26/16 09:28 Dose: 240 mg Diltiazem HCl (Cardizem Injection -) 10 mg IVPUSH Q1H PRN PRN Reason: TACHYCARDIA Fentanyl (Sublimaze Injection -) 50 mcg IVPUSH [id number] PRN PRN Reason: PAIN Stop: 10/28/16 14:38 Heparin Sodium (Porcine) (Heparin -) 5,000 unit IVPUSH PRN PRN PRN Reason: Heparin Heparin Sodium (Porcine) (Heparin -) 1,000 unit IVPUSH PRN PRN PRN Reason: Heparin Last Admin: 10/25/16 22:17 Dose: 1,000 unit Heparin Sodium (Porcine) (Heparin -) 5,000 unit IVPUSH PRN PRN PRN Reason: Heparin Heparin Sodium/Dextrose (Heparin Infusion -) 500 mls @ 16 mls/hr IVPB TITR MELANY ; 800 UNITS/HR PRN Reason: Protocol Last Titration: 10/25/16 22:18 Dose: 900 units/hr Aztreonam 1 gm/ Dextrose 50 mls @ 100 mls/hr IVPB Q8H-IV MELANY PRN Reason: Protocol Last Admin: 10/26/16 09:29 Dose: 100 mls/hr Clindamycin Phosphate (Cleocin 300 Mg Premix Ivpb) 50 mls @ 100 mls/hr IVPB Q6H -IV MELANY Last Admin: 10/26/16 09:29 Dose: 100 mls/hr Lactated Ringer's (Lactated Ringers Solution) 1,000 mls @ 125 mls/hr IV ASDIR MELANY Last Admin: 10/25/16 14:35 Dose: 125 mls/hr Magnesium Oxide (Mag-Ox -) 400 mg PO BID [facility] Last Admin: 10/26/16 09:28 Dose: 400 mg Metoprolol Succinate (Toprol Xl -) 50 mg PO DAILY [facility] Last Admin: 10/26/16 09:28 Dose: 50 mg Morphine Sulfate (Morphine Injection -) 2 mg IVPUSH Q4H PRN PRN Reason: PAIN - Objective Vital Signs: Vital Signs Temperature 99.2 F 10/26/16 02:00 Pulse Rate 120 H 10/26/16 02:00 Respiratory Rate 18 10/26/16 02:00 Blood Pressure 129/84 10/26/16 02:00 O2 Sat by Pulse Oximetry (%) 97 10/25/16 21:00 Constitutional: Yes: No Distress, Calm Eyes: Yes: Conjunctiva Clear, EOM Intact HENT: Yes: Atraumatic, Normocephalic Neck: Yes: Supple, Trachea Midline Cardiovascular: Yes: Pulse Irregular, Murmur, S1, S2 Respiratory: Yes: Regular, CTA Bilaterally. No: Rales, Rhonchi, Wheezes Gastrointestinal: Yes: Normal Bowel Sounds, Soft. No: Distention, Tenderness Extremities: Yes: Other (left foot with gangrnous toes 2nd, 3rd, 4th digits, dressing on posterior heel) Neurological: Yes: Alert, Oriented Labs: CBC, BMP 10/26/16 05:55 10/26/16 05:55 INR, PTT INR 1.24 (0.82-1.09) H 10/18/16 21:15 Assessment/Plan Current Active Problems Gangrene (Acute) Ischemic leg (Acute) Leukocytosis (Acute) Parkinson disease (Acute) Peripheral vascular disease (Acute) -cont on abx, vascular following for PAD, observing to see if needs amputation left LE or foot -pain control (as foot becomes vascularized)
[2016-10-26] MEDS: HEPARIN INFUSION - 500 ML IVPB SCH ×2 (19:24→21:25)
[2016-10-27] MEDS: AZTREONAM 1 GM in DEXTROSE 5%-WATER - 50 ML IVPB SCH ×3 (01:08→17:19)
[2016-10-27] MEDS: CLINDAMYCIN 300 MG PREMIX IVPB 50 ML IVPB SCH ×4 (04:13→21:30)
[2016-10-27] MEDS: CARBIDOPA/LEVODOPA 25/100 TABLET (FP) PO SCH ×3 (05:50→22:10)
[2016-10-27 07:55] LABS: MCH 27.8 pg (25.7-33.7); MEAN CELL VOLUME 84.5 fl (80-96); MEAN PLT VOLUME 7.4 fl (7.5-11.1); PLATELET COUNT 315 K/MM3 (134-434); RDW 14.2 % (11.6-15.6); WHITE BLOOD COUNT 14.4 K/mm3 (4.0-10.0)
[2016-10-27 08:31] LABS: ALBUMIN 2.4 g/dl (3.4-5.0); ALK PHOS 62 U/L (45-117); ANION GAP 7 (8-16); BILIRUBIN,TOTAL 0.3 mg/dL (0.2-1.0); CALCIUM 9.9 mg/dL (8.5-10.1); CO2 31 mmol/L (21-32); CREATININE 0.4 mg/dL (0.55-1.02); GLUCOSE,RANDOM 112 mg/dL (74-106); SGOT/AST 14 U/L (15-37); SGPT/ALT 6 U/L (12-78); TOT PROT 6.8 g/dl (6.4-8.2)
[2016-10-27] MEDS: MAGNESIUM OXIDE 400 MG TABLET (FP) PO SCH ×2 (09:48→22:10)
[2016-10-27] MEDS: METOPROLOL SUCCINATE 50 MG TAB.SR.24H (FP) PO SCH (09:48)
--- NOTE | 2016-10-27 10:38 | PN ---
Progress Note, Physician History of Present Illness: No complaints No events overnight Tele: NSR 90s overnight - Current Medication List Current Medications: Active Medications Acetaminophen (Tylenol -) 650 mg PO Q4H PRN PRN Reason: FEVER OR PAIN Last Admin: 10/26/16 04:34 Dose: 650 mg Acetaminophen/Codeine Phosphate (Tylenol # 3 -) 1 tab PO Q6H PRN PRN Reason: FEVER OR PAIN Last Admin: 10/26/16 21:18 Dose: 1 tab Carbidopa/Levodopa (Sinemet 25/100 -) 1 each PO TID MELANY Last Admin: 10/27/16 05:50 Dose: 1 each Diltiazem HCl (Cardizem Cd -) 240 mg PO DAILY MELANY Last Admin: 10/27/16 09:48 Dose: 240 mg Diltiazem HCl (Cardizem Injection -) 10 mg IVPUSH Q1H PRN PRN Reason: TACHYCARDIA Fentanyl (Sublimaze Injection -) 50 mcg IVPUSH [id number] PRN PRN Reason: PAIN Stop: 10/28/16 14:38 Heparin Sodium (Porcine) (Heparin -) 5,000 unit IVPUSH PRN PRN PRN Reason: Heparin Heparin Sodium (Porcine) (Heparin -) 1,000 unit IVPUSH PRN PRN PRN Reason: Heparin Last Admin: 10/26/16 11:00 Dose: 1,000 unit Heparin Sodium (Porcine) (Heparin -) 5,000 unit IVPUSH PRN PRN PRN Reason: Heparin Heparin Sodium/Dextrose (Heparin Infusion -) 500 mls @ 16 mls/hr IVPB TITR MELANY ; 800 UNITS/HR PRN Reason: Protocol Last Admin: 10/26/16 21:25 Dose: 20 mls/hr Aztreonam 1 gm/ Dextrose 50 mls @ 100 mls/hr IVPB Q8H-IV MELANY PRN Reason: Protocol Last Admin: 10/27/16 09:45 Dose: 100 mls/hr Clindamycin Phosphate (Cleocin 300 Mg Premix Ivpb) 50 mls @ 100 mls/hr IVPB Q6H -IV MELANY Last Admin: 10/27/16 09:46 Dose: 100 mls/hr Lactated Ringer's (Lactated Ringers Solution) 1,000 mls @ 125 mls/hr IV ASDIR MELANY Last Admin: 10/25/16 14:35 Dose: 125 mls/hr Magnesium Oxide (Mag-Ox -) 400 mg PO BID [facility] Last Admin: 10/27/16 09:48 Dose: 400 mg Metoprolol Succinate (Toprol Xl -) 50 mg PO DAILY [facility] Last Admin: 10/27/16 09:48 Dose: 50 mg Morphine Sulfate (Morphine Injection -) 2 mg IVPUSH Q4H PRN PRN Reason: PAIN - Objective Vital Signs: Vital Signs Temperature 98.8 F 10/27/16 06:00 Pulse Rate 77 10/27/16 06:00 Respiratory Rate 18 10/27/16 06:00 Blood Pressure 113/50 10/27/16 06:00 O2 Sat by Pulse Oximetry (%) 98 10/26/16 21:00 Labs: CBC, BMP 10/27/16 05:50 10/27/16 05:50 INR, PTT INR 1.24 (0.82-1.09) H 10/18/16 21:15
--- NOTE | 2016-10-27 10:54 | PN ---
Progress Note, Physician History of Present Illness: Patient notes less pain in left foot today. No fevers noted overnight. - Current Medication List Current Medications: Active Medications Acetaminophen (Tylenol -) 650 mg PO Q4H PRN PRN Reason: FEVER OR PAIN Last Admin: 10/26/16 04:34 Dose: 650 mg Acetaminophen/Codeine Phosphate (Tylenol # 3 -) 1 tab PO Q6H PRN PRN Reason: FEVER OR PAIN Last Admin: 10/26/16 21:18 Dose: 1 tab Carbidopa/Levodopa (Sinemet 25/100 -) 1 each PO TID MELANY Last Admin: 10/27/16 05:50 Dose: 1 each Diltiazem HCl (Cardizem Cd -) 240 mg PO DAILY [facility] Last Admin: 10/27/16 09:48 Dose: 240 mg Diltiazem HCl (Cardizem Injection -) 10 mg IVPUSH Q1H PRN PRN Reason: TACHYCARDIA Fentanyl (Sublimaze Injection -) 50 mcg IVPUSH [id number] PRN PRN Reason: PAIN Stop: 10/28/16 14:38 Heparin Sodium (Porcine) (Heparin -) 5,000 unit IVPUSH PRN PRN PRN Reason: Heparin Heparin Sodium (Porcine) (Heparin -) 1,000 unit IVPUSH PRN PRN PRN Reason: Heparin Last Admin: 10/26/16 11:00 Dose: 1,000 unit Heparin Sodium (Porcine) (Heparin -) 5,000 unit IVPUSH PRN PRN PRN Reason: Heparin Heparin Sodium/Dextrose (Heparin Infusion -) 500 mls @ 16 mls/hr IVPB TITR MELANY ; 800 UNITS/HR PRN Reason: Protocol Last Admin: 10/26/16 21:25 Dose: 20 mls/hr Aztreonam 1 gm/ Dextrose 50 mls @ 100 mls/hr IVPB Q8H-IV MELANY PRN Reason: Protocol Last Admin: 10/27/16 09:45 Dose: 100 mls/hr Clindamycin Phosphate (Cleocin 300 Mg Premix Ivpb) 50 mls @ 100 mls/hr IVPB Q6H -IV MELANY Last Admin: 10/27/16 09:46 Dose: 100 mls/hr Lactated Ringer's (Lactated Ringers Solution) 1,000 mls @ 125 mls/hr IV ASDIR MELANY Last Admin: 10/25/16 14:35 Dose: 125 mls/hr Magnesium Oxide (Mag-Ox -) 400 mg PO BID [facility] Last Admin: 10/27/16 09:48 Dose: 400 mg Metoprolol Succinate (Toprol Xl -) 50 mg PO DAILY [facility] Last Admin: 10/27/16 09:48 Dose: 50 mg Morphine Sulfate (Morphine Injection -) 2 mg IVPUSH Q4H PRN PRN Reason: PAIN - Objective Vital Signs: Vital Signs Temperature 98.8 F 10/27/16 06:00 Pulse Rate 77 10/27/16 06:00 Respiratory Rate 18 10/27/16 06:00 Blood Pressure 113/50 10/27/16 06:00 O2 Sat by Pulse Oximetry (%) 98 10/26/16 21:00 Constitutional: Yes: No Distress, Calm Eyes: Yes: Conjunctiva Clear, EOM Intact HENT: Yes: Atraumatic, Normocephalic Neck: Yes: Supple, Trachea Midline Cardiovascular: Yes: Regular Rate and Rhythm, S1, S2. No: Murmur Respiratory: Yes: Regular, CTA Bilaterally. No: Rales, Rhonchi, Wheezes Gastrointestinal: Yes: Normal Bowel Sounds, Soft. No: Distention, Tenderness Extremities: Yes: Other (gangrenous changes 2nd 3rd, 4th toes on left foot) Edema: No Labs: CBC, BMP 10/27/16 05:50 10/27/16 05:50 INR, PTT INR 1.24 (0.82-1.09) H 10/18/16 21:15 Assessment/Plan Current Active Problems Gangrene (Acute) Ischemic leg (Acute) Leukocytosis (Acute) Parkinson disease (Acute) Peripheral vascular disease (Acute) -cont current treatment
--- NOTE | 2016-10-27 11:18 | PN ---
Progress Note, Physician History of Present Illness: No complaints Tele: NSR 90s - Current Medication List Current Medications: Active Medications Acetaminophen (Tylenol -) 650 mg PO Q4H PRN PRN Reason: FEVER OR PAIN Last Admin: 10/26/16 04:34 Dose: 650 mg Acetaminophen/Codeine Phosphate (Tylenol # 3 -) 1 tab PO Q6H PRN PRN Reason: FEVER OR PAIN Last Admin: 10/26/16 21:18 Dose: 1 tab Carbidopa/Levodopa (Sinemet 25/100 -) 1 each PO TID MELANY Last Admin: 10/27/16 05:50 Dose: 1 each Diltiazem HCl (Cardizem Cd -) 240 mg PO DAILY MELANY Last Admin: 10/27/16 09:48 Dose: 240 mg Diltiazem HCl (Cardizem Injection -) 10 mg IVPUSH Q1H PRN PRN Reason: TACHYCARDIA Fentanyl (Sublimaze Injection -) 50 mcg IVPUSH [id number] PRN PRN Reason: PAIN Stop: 10/28/16 14:38 Heparin Sodium (Porcine) (Heparin -) 5,000 unit IVPUSH PRN PRN PRN Reason: Heparin Heparin Sodium (Porcine) (Heparin -) 1,000 unit IVPUSH PRN PRN PRN Reason: Heparin Last Admin: 10/26/16 11:00 Dose: 1,000 unit Heparin Sodium (Porcine) (Heparin -) 5,000 unit IVPUSH PRN PRN PRN Reason: Heparin Heparin Sodium/Dextrose (Heparin Infusion -) 500 mls @ 16 mls/hr IVPB TITR MELANY ; 800 UNITS/HR PRN Reason: Protocol Last Admin: 10/26/16 21:25 Dose: 20 mls/hr Aztreonam 1 gm/ Dextrose 50 mls @ 100 mls/hr IVPB Q8H-IV MELANY PRN Reason: Protocol Last Admin: 10/27/16 09:45 Dose: 100 mls/hr Clindamycin Phosphate (Cleocin 300 Mg Premix Ivpb) 50 mls @ 100 mls/hr IVPB Q6H -IV MELANY Last Admin: 10/27/16 09:46 Dose: 100 mls/hr Lactated Ringer's (Lactated Ringers Solution) 1,000 mls @ 125 mls/hr IV ASDIR [facility] Last Admin: 10/25/16 14:35 Dose: 125 mls/hr Magnesium Oxide (Mag-Ox -) 400 mg PO BID [facility] Last Admin: 10/27/16 09:48 Dose: 400 mg Metoprolol Succinate (Toprol Xl -) 50 mg PO DAILY [facility] Last Admin: 10/27/16 09:48 Dose: 50 mg Morphine Sulfate (Morphine Injection -) 2 mg IVPUSH Q4H PRN PRN Reason: PAIN - Objective Vital Signs: Vital Signs Temperature 98.8 F 10/27/16 06:00 Pulse Rate 77 10/27/16 06:00 Respiratory Rate 18 10/27/16 09:00 Blood Pressure 113/50 10/27/16 06:00 O2 Sat by Pulse Oximetry (%) 98 10/27/16 09:00 Constitutional: Yes: Well Nourished, No Distress Eyes: Yes: WNL HENT: Yes: WNL Neck: Yes: WNL, Trachea Midline Cardiovascular: Yes: Regular Rate and Rhythm Respiratory: Yes: WNL Gastrointestinal: Yes: WNL Extremities: Yes: Other (Left foot with gangrenous toe) Edema: No Labs: CBC, BMP 10/27/16 05:50 10/27/16 05:50 INR, PTT INR 1.24 (0.82-1.09) H 10/18/16 21:15 Assessment/Plan a/p: 71 yo smoker with htn, dystonia c/b frequent falls (recent medically managed trochanteric fx in July) who p/w possible ischemic foot/non-healing wounds, hospital course complicated by afib with RVR. Afib: -first episode, occurred on floor while here with foot wound -rapid HRs 10/21, responded to diltiazem PO and IVPs (on diltiazem CD 240 at home for BP) --> now in SR as of 10/22. -ecg nonischemic, trend serial enzymes -check echo now that HRs better controlled (to better assess LV fxn) --> report reviewed showing grossly normal biventriuclar size and function. Normal LA size and moderate MR. -has been getting SQ hep (5K units BID) here for DVT ppx, O2 sat 100% on RA-- doubt PE --> started on heparin drip -CHADS VASC = 3, merits [facility] AC for stroke prevention. however pt reports excessive falls at home including head injury more than once and trochanteric fx last month. hence her risk of falls with head injury is statistically signif greater than 3%/year risk of cardioembolic stroke. -will start UFH while here, as she is not ambulating including not going to use bathroom herself--will stop AC once she is ambulating (unless needs cardioversion), d/w'd dr hansen as well who is aware of plan - 10/22: lyte repletion, RVR occurred when magnesium was 1.3. now in SR. -10/23: brief episode rvr this am, now in sr. cont same dilt/bb. Monitor on tele. -10/24-: has brief episodes of afib but rate controlled and mostly remains in sr. cont same dilt/bb. 10/26: Stable. Continue Dilt/BB and UFH 10/27: HR well controlled, continue current metoprolol and dilt as well as UFH following PTT HTN: -overall reasonable control -cont home po diltiazem 240mg (prefer avoid 300mg dose given incr incidence constipation/leg swelling with this) -added metopr succinate 50mg qd 10/21. monitor pre-op clearance - patient being followed by vascular. Planned for angio to evaluate pad. - patient with rcri of 0 but with poor funcitonal status and pad. estimated risk likely low-intermediate. Ok to hold AC for procedure.
[2016-10-27] MEDS: HEPARIN INFUSION - 500 ML IVPB SCH (17:18)
--- NOTE | 2016-10-27 20:08 | PN ---
Progress Note, Physician History of Present Illness: Pt states she feels better,pain is much better controlled Denies fever/chills No other specific complaints - Current Medication List Current Medications: Active Medications Acetaminophen (Tylenol -) 650 mg PO Q4H PRN PRN Reason: FEVER OR PAIN Last Admin: 10/26/16 04:34 Dose: 650 mg Acetaminophen/Codeine Phosphate (Tylenol # 3 -) 1 tab PO Q6H PRN PRN Reason: FEVER OR PAIN Last Admin: 10/26/16 21:18 Dose: 1 tab Carbidopa/Levodopa (Sinemet 25/100 -) 1 each PO TID MELANY Last Admin: 10/27/16 13:13 Dose: 1 each Diltiazem HCl (Cardizem Cd -) 240 mg PO DAILY [facility] Last Admin: 10/27/16 09:48 Dose: 240 mg Diltiazem HCl (Cardizem Injection -) 10 mg IVPUSH Q1H PRN PRN Reason: TACHYCARDIA Fentanyl (Sublimaze Injection -) 50 mcg IVPUSH [id number] PRN PRN Reason: PAIN Stop: 10/28/16 14:38 Heparin Sodium (Porcine) (Heparin -) 5,000 unit IVPUSH PRN PRN PRN Reason: Heparin Heparin Sodium (Porcine) (Heparin -) 1,000 unit IVPUSH PRN PRN PRN Reason: Heparin Last Admin: 10/26/16 11:00 Dose: 1,000 unit Heparin Sodium (Porcine) (Heparin -) 5,000 unit IVPUSH PRN PRN PRN Reason: Heparin Heparin Sodium/Dextrose (Heparin Infusion -) 500 mls @ 16 mls/hr IVPB TITR MELANY ; 800 UNITS/HR PRN Reason: Protocol Last Admin: 10/27/16 17:18 Dose: 20 mls/hr Aztreonam 1 gm/ Dextrose 50 mls @ 100 mls/hr IVPB Q8H-IV MELANY PRN Reason: Protocol Last Admin: 10/27/16 17:19 Dose: 100 mls/hr Clindamycin Phosphate (Cleocin 300 Mg Premix Ivpb) 50 mls @ 100 mls/hr IVPB Q6H -IV MELANY Last Admin: 10/27/16 15:28 Dose: 100 mls/hr Lactated Ringer's (Lactated Ringers Solution) 1,000 mls @ 125 mls/hr IV ASDIR [facility] Last Admin: 10/25/16 14:35 Dose: 125 mls/hr Magnesium Oxide (Mag-Ox -) 400 mg PO BID [facility] Last Admin: 10/27/16 09:48 Dose: 400 mg Metoprolol Succinate (Toprol Xl -) 50 mg PO DAILY [facility] Last Admin: 10/27/16 09:48 Dose: 50 mg Morphine Sulfate (Morphine Injection -) 2 mg IVPUSH Q4H PRN PRN Reason: PAIN - Objective Vital Signs: Vital Signs Temperature 99.2 F 10/27/16 18:00 Pulse Rate 83 10/27/16 18:00 Respiratory Rate 20 10/27/16 18:00 Blood Pressure 99/50 10/27/16 18:00 O2 Sat by Pulse Oximetry (%) 98 10/27/16 09:00 Constitutional: Yes: No Distress Cardiovascular: Yes: Regular Rate and Rhythm Respiratory: Yes: Regular Gastrointestinal: Yes: Normal Bowel Sounds, Soft Genitourinary: Yes: WNL Extremities: Yes: Other (Left foot toes gangrenous, hatch tender to touch, heel dressing in place) Labs: CBC, BMP 10/27/16 05:50 10/27/16 05:50 INR, PTT INR 1.24 (0.82-1.09) H 10/18/16 21:15 Problem List - Problems (1) Gangrene Code(s): I96 - GANGRENE, NOT ELSEWHERE CLASSIFIED (2) Peripheral vascular disease Code(s): I73.9 - PERIPHERAL VASCULAR DISEASE, UNSPECIFIED (3) Leukocytosis Code(s): D72.829 - ELEVATED WHITE BLOOD CELL COUNT, UNSPECIFIED Assessment/Plan s/p LT angio/stent placement - wbc mildly elevated but stable cont current antibiotics for now monitor vascular status, pt may need amputation currently stable
[2016-10-27] MEDS ORDERED: PT OWN MED DRAWER 7, Y5N ONE ×2 (22:05)
[2016-10-27] MEDS: ACETAMINOPHEN 325 MG TABLET (FP) PO PRN (22:16)
[2016-10-28] MEDS ORDERED: PT OWN MED DRAWER 7, Y5N ONE ×2 (01:33→16:57)
[2016-10-28] MEDS: AZTREONAM 1 GM in DEXTROSE 5%-WATER - 50 ML IVPB SCH ×3 (01:45→17:38)
[2016-10-28] MEDS: CLINDAMYCIN 300 MG PREMIX IVPB 50 ML IVPB SCH ×4 (02:15→22:26)
[2016-10-28] MEDS: CARBIDOPA/LEVODOPA 25/100 TABLET (FP) PO SCH ×4 (06:02→22:27)
[2016-10-28 07:19] LABS: MCH 27.9 pg (25.7-33.7); MCHC 32.8 g/dl (32.0-36.0); MEAN CELL VOLUME 84.8 fl (80-96); MEAN PLT VOLUME 7.7 fl (7.5-11.1); PLATELET COUNT 310 K/MM3 (134-434); RDW 14.3 % (11.6-15.6); WHITE BLOOD COUNT 11.6 K/mm3 (4.0-10.0)
[2016-10-28 07:55] LABS: ALBUMIN 2.2 g/dl (3.4-5.0); ANION GAP 7 (8-16); BILIRUBIN,TOTAL 0.3 mg/dL (0.2-1.0); CALCIUM 9.6 mg/dL (8.5-10.1); CO2 30 mmol/L (21-32); CREATININE 0.4 mg/dL (0.55-1.02); GLUCOSE,RANDOM 105 mg/dL (74-106); SGOT/AST 20 U/L (15-37); SGPT/ALT 12 U/L (12-78); TOT PROT 6.7 g/dl (6.4-8.2)
[2016-10-28 07:56] LABS: ALK PHOS 64 U/L (45-117)
--- NOTE | 2016-10-28 08:57 | OP ---
DATE OF OPERATION: 10/25/2016 PREOPERATIVE DIAGNOSIS: Gangrene, left lower extremity toes. POSTOPERATIVE DIAGNOSIS: Gangrene, left lower extremity toes. PROCEDURE: Aortogram, left lower extremity; angiogram, left iliac artery; angioplasty with stent placement. SURGEON: Shaquille Arriaza DO ANESTHESIA: Fractional. BLOOD LOSS: 50 mL. INDICATION FOR PROCEDURE: The patient is a 71-year-old female who came in with gangrene of her left lower extremity toes. She is a current smoker, has been smoking for 60 years and smokes upwards of a pack a day but used to smoke about 2 packs a day. She is also a diabetic, which is uncontrolled. She was admitted to the hospital for further workup, and she was cleared by Cardiology for an angiogram. She has had episodes of atrial fibrillation in the hospital as well, which is why she is on anticoagulation now. Patient was consented for the procedure, understanding all risks, benefits, alternatives, was then taken to the operating room. Once in the operating room she was laid on the operating table in supine manner, and the areas of the right and left groins were prepped and draped in sterile surgical manner. We then injected 10 mL of over the right common femoral artery under ultrasound guidance. We were able to visualize the right common femoral artery, and using our Micropuncture needle we were able to puncture the artery. Micropuncture wire was inserted and a traditional 5-Maltese sheath was inserted. A 0.035 floppy guidewire was then inserted up into the aorta, followed by an Omniflush catheter. We then shot an aortogram showing that the aorta and iliac arteries on the right side were patent, but on the left side there was a nub of the common iliac artery and the rest of the common external iliac arteries were occluded. The common femoral artery was patent, SFA was patent, and the profunda was patent. At this point we went ahead and placed a 0.035 stiff guidewire, and we were able to selectively cannulate into the left common iliac artery, and we were able to cross our occlusion and get our wire down into the common femoral artery. We then went ahead and placed a 6 x 45 crossover sheath up to the bifurcation. We then went ahead and used a 7 x 8 balloon and performed angioplasty of the external iliac artery and the common iliac artery. We then went ahead and used an 8 x 8 Bard LifeStar stent and an 8 x 6 Bard LifeStar stent and stented the entire external iliac artery up to the common iliac artery origin. We then went ahead and ballooned the stents in place using an 8 x 8 Kermit balloon. We then went ahead and shot a completion aortogram showing that bilateral aortoiliac arteries were now patent and there was good brisk flow going into the left leg. At this point we brought our sheath up and over, and StarClose device was successfully deployed in the right common femoral artery. Pressure was held for 5 minutes. After there was no more bleeding, Dermabond was placed. The patient tolerated the procedure with no complication. Total blood loss 50 mL. Patient transferred to PACU in stable condition. Patient now had a palpable left common femoral artery pulse. SHAQUILLE ARRIAZA DO [id number]
--- NOTE | 2016-10-28 09:08 | PN ---
Progress Note, Physician Chief Complaint: afib History of Present Illness: no cp, sob, palpitations, dizzy in jalyn--not getting oob - Current Medication List Current Medications: Active Medications Acetaminophen (Tylenol -) 650 mg PO Q4H PRN PRN Reason: FEVER OR PAIN Last Admin: 10/27/16 22:16 Dose: 650 mg Acetaminophen/Codeine Phosphate (Tylenol # 3 -) 1 tab PO Q6H PRN PRN Reason: FEVER OR PAIN Last Admin: 10/26/16 21:18 Dose: 1 tab Carbidopa/Levodopa (Sinemet 25/100 -) 1 each PO TID MELANY Last Admin: 10/28/16 06:02 Dose: 1 each Diltiazem HCl (Cardizem Cd -) 240 mg PO DAILY [facility] Last Admin: 10/27/16 09:48 Dose: 240 mg Diltiazem HCl (Cardizem Injection -) 10 mg IVPUSH Q1H PRN PRN Reason: TACHYCARDIA Fentanyl (Sublimaze Injection -) 50 mcg IVPUSH [id number] PRN PRN Reason: PAIN Stop: 10/28/16 14:38 Heparin Sodium (Porcine) (Heparin -) 5,000 unit IVPUSH PRN PRN PRN Reason: Heparin Heparin Sodium (Porcine) (Heparin -) 1,000 unit IVPUSH PRN PRN PRN Reason: Heparin Last Admin: 10/26/16 11:00 Dose: 1,000 unit Heparin Sodium (Porcine) (Heparin -) 5,000 unit IVPUSH PRN PRN PRN Reason: Heparin Heparin Sodium/Dextrose (Heparin Infusion -) 500 mls @ 16 mls/hr IVPB TITR MELANY ; 800 UNITS/HR PRN Reason: Protocol Last Admin: 10/27/16 17:18 Dose: 20 mls/hr Aztreonam 1 gm/ Dextrose 50 mls @ 100 mls/hr IVPB Q8H-IV MELANY PRN Reason: Protocol Last Admin: 10/28/16 01:45 Dose: 100 mls/hr Clindamycin Phosphate (Cleocin 300 Mg Premix Ivpb) 50 mls @ 100 mls/hr IVPB Q6H -IV MELANY Last Admin: 10/28/16 02:15 Dose: 100 mls/hr Lactated Ringer's (Lactated Ringers Solution) 1,000 mls @ 125 mls/hr IV ASDIR [facility] Last Admin: 10/25/16 14:35 Dose: 125 mls/hr Magnesium Oxide (Mag-Ox -) 400 mg PO BID [facility] Last Admin: 10/27/16 22:10 Dose: 400 mg Metoprolol Succinate (Toprol Xl -) 50 mg PO DAILY [facility] Last Admin: 10/27/16 09:48 Dose: 50 mg Morphine Sulfate (Morphine Injection -) 2 mg IVPUSH Q4H PRN PRN Reason: PAIN - Objective Vital Signs: Vital Signs Temperature 98 F 10/28/16 05:43 Pulse Rate 75 10/28/16 05:43 Respiratory Rate 20 10/28/16 05:43 Blood Pressure 105/56 10/28/16 05:43 O2 Sat by Pulse Oximetry (%) 97 10/27/16 21:00 Constitutional: Yes: Well Nourished, No Distress, Calm Respiratory: Yes: Regular, CTA Bilaterally. No: Accessory Muscle Use, Rales, Wheezes Extremities: No: Cold Edema: No Neurological: Yes: Alert. No: Seizure Psychiatric: No: Agitated Labs: CBC, BMP 10/28/16 05:35 10/28/16 05:35 INR, PTT INR 1.24 (0.82-1.09) H 10/18/16 21:15 - ....Imaging EKG: Other (tele: NSR, brief run PSVT) Assessment/Plan CXR 10/18: clear lungs and pleura ECG 10/21, 10am: afib 157 bpm; normal axis/intervals; no path q's; mild NSST abn echo 10/2016: nl lv/rv, mod mr, mild tr a/p: 71 yo smoker with htn, dystonia c/b frequent falls (recent medically managed trochanteric fx in July) who p/w possible ischemic foot/non-healing wounds, hospital course complicated by afib with RVR. Afib: -first episode, occurred on floor while here with foot wound -rapid HRs 10/21, responded to diltiazem PO and IVPs (on diltiazem CD 240 at home for BP) --> now in SR as of 10/22. -ecg nonischemic, trend serial enzymes -check echo now that HRs better controlled (to better assess LV fxn) --> pending -has been getting SQ hep (5K units BID) here for DVT ppx, O2 sat 100% on RA-- doubt PE --> started on heparin drip -CHADS VASC = 3, merits shelter AC for stroke prevention. however pt reports excessive falls at home including head injury more than once and trochanteric fx last month. hence her risk of falls with head injury is statistically signif greater than 3%/year risk of cardioembolic stroke. - 10/22: lyte repletion, RVR occurred when magnesium was 1.3. now in SR. -10/23: brief episode rvr this am, now in sr. cont same dilt/bb. Monitor on tele. -10/24-6: has brief episodes of afib but rate controlled. cont same dilt/bb. -10/28: NSR with one brief run PSVT -will d/c telee, cont same meds -plan is to stop AC once pt is ambulating given prohibitive falls risk, as per my d/w dr hansen HTN: -overall reasonable control -cont home po diltiazem 240mg (prefer avoid 300mg dose given incr incidence constipation/leg swelling with this) -added metopr succinate 50mg qd 10/21. monitor pre-op clearance - patient being followed by vascular. Planned for angio to evaluate pad. - patient with rcri of 0 but with poor funcitonal status and pad. estimated risk likely low-intermediate. Ok to hold AC for procedure. no further testing required
[2016-10-28] MEDS: MAGNESIUM OXIDE 400 MG TABLET (FP) PO SCH ×2 (09:13→22:27)
[2016-10-28] MEDS: METOPROLOL SUCCINATE 50 MG TAB.SR.24H (FP) PO SCH (09:13)
--- NOTE | 2016-10-28 11:27 | PN ---
Progress Note, Physician Chief Complaint: Ms Wilson says she has pain in her left foot. No chest pain, shortness of breath , nausea/vomiting. - Current Medication List Current Medications: Active Medications Acetaminophen (Tylenol -) 650 mg PO Q4H PRN PRN Reason: FEVER OR PAIN Last Admin: 10/27/16 22:16 Dose: 650 mg Acetaminophen/Codeine Phosphate (Tylenol # 3 -) 1 tab PO Q6H PRN PRN Reason: FEVER OR PAIN Last Admin: 10/26/16 21:18 Dose: 1 tab Carbidopa/Levodopa (Sinemet 25/100 -) 1 each PO TID MELANY Last Admin: 10/28/16 06:02 Dose: 1 each Diltiazem HCl (Cardizem Cd -) 240 mg PO DAILY [facility] Last Admin: 10/28/16 09:13 Dose: 240 mg Diltiazem HCl (Cardizem Injection -) 10 mg IVPUSH Q1H PRN PRN Reason: TACHYCARDIA Fentanyl (Sublimaze Injection -) 50 mcg IVPUSH [id number] PRN PRN Reason: PAIN Stop: 10/28/16 14:38 Heparin Sodium (Porcine) (Heparin -) 5,000 unit IVPUSH PRN PRN PRN Reason: Heparin Heparin Sodium (Porcine) (Heparin -) 1,000 unit IVPUSH PRN PRN PRN Reason: Heparin Last Admin: 10/26/16 11:00 Dose: 1,000 unit Heparin Sodium (Porcine) (Heparin -) 5,000 unit IVPUSH PRN PRN PRN Reason: Heparin Heparin Sodium/Dextrose (Heparin Infusion -) 500 mls @ 16 mls/hr IVPB TITR MELANY ; 800 UNITS/HR PRN Reason: Protocol Last Admin: 10/27/16 17:18 Dose: 20 mls/hr Aztreonam 1 gm/ Dextrose 50 mls @ 100 mls/hr IVPB Q8H-IV MELANY PRN Reason: Protocol Last Admin: 10/28/16 09:21 Dose: 100 mls/hr Clindamycin Phosphate (Cleocin 300 Mg Premix Ivpb) 50 mls @ 100 mls/hr IVPB Q6H -IV MELANY Last Admin: 10/28/16 09:21 Dose: 100 mls/hr Lactated Ringer's (Lactated Ringers Solution) 1,000 mls @ 125 mls/hr IV ASDIR [facility] Last Admin: 10/25/16 14:35 Dose: 125 mls/hr Magnesium Oxide (Mag-Ox -) 400 mg PO BID [facility] Last Admin: 10/28/16 09:13 Dose: 400 mg Metoprolol Succinate (Toprol Xl -) 50 mg PO DAILY [facility] Last Admin: 10/28/16 09:13 Dose: 50 mg Morphine Sulfate (Morphine Injection -) 2 mg IVPUSH Q4H PRN PRN Reason: PAIN - Objective Vital Signs: Vital Signs Temperature 98 F 10/28/16 05:43 Pulse Rate 75 10/28/16 05:43 Respiratory Rate 20 10/28/16 05:43 Blood Pressure 105/56 10/28/16 05:43 O2 Sat by Pulse Oximetry (%) 97 10/27/16 21:00 Constitutional: Yes: No Distress, Calm, Thin Cardiovascular: Yes: Regular Rate and Rhythm. No: Gallop, Murmur, Rub Respiratory: Yes: Regular, CTA Bilaterally. No: Rales, Rhonchi, Wheezes Gastrointestinal: Yes: Normal Bowel Sounds, Soft. No: Distention, Tenderness Extremities: Yes: Other (gangrene) Edema: No Labs: CBC, BMP 10/28/16 05:35 10/28/16 05:35 INR, PTT INR 1.24 (0.82-1.09) H 10/18/16 21:15 Problem List - Problems (1) Atrial fibrillation with rapid ventricular response Code(s): I48.91 - UNSPECIFIED ATRIAL FIBRILLATION (2) Gangrene Code(s): I96 - GANGRENE, NOT ELSEWHERE CLASSIFIED (3) Parkinson disease Code(s): G20 - PARKINSON'S DISEASE (4) Fall Code(s): W19.XXXA - UNSPECIFIED FALL, INITIAL ENCOUNTER Qualifiers: Encounter type: initial encounter Qualified Code(s): W19.XXXA - Unspecified fall, initial encounter (5) HTN (hypertension) Code(s): I10 - ESSENTIAL (PRIMARY) HYPERTENSION Assessment/Plan (1) Atrial fibrillation with rapid ventricular response Assessment/Plan: -rate controlled -cardiology following -continue heparin gtt while not ambulating -once begins ambulation, will stop heparin gtt secondary to increased fall risk Code(s): I48.91 - UNSPECIFIED ATRIAL FIBRILLATION (2) Gangrene Assessment/Plan: -continue antibiotics per ID recommendation -s/p aortogram with stenting -leukocytosis improving -vascular surgery and podiatry consulted, ? if needs amputation Code(s): I96 - GANGRENE, NOT ELSEWHERE CLASSIFIED (3) Parkinson disease Assessment/Plan: -continue sinemet Code(s): G20 - PARKINSON'S DISEASE (4) Fall Assessment/Plan: -fall precautions -PT consulted and following Code(s): W19.XXXA - UNSPECIFIED FALL, INITIAL ENCOUNTER Qualifiers: Encounter type: initial encounter Qualified Code(s): W19.XXXA - Unspecified fall, initial encounter (5) HTN (hypertension) Assessment/Plan: -continue diltiazem -stable Code(s): I10 - ESSENTIAL (PRIMARY) HYPERTENSION
--- NOTE | 2016-10-28 13:36 | PN ---
Progress Note, Physician History of Present Illness: patient stable no new issues - Current Medication List Current Medications: Active Medications Acetaminophen (Tylenol -) 650 mg PO Q4H PRN PRN Reason: FEVER OR PAIN Last Admin: 10/27/16 22:16 Dose: 650 mg Acetaminophen/Codeine Phosphate (Tylenol # 3 -) 1 tab PO Q6H PRN PRN Reason: FEVER OR PAIN Last Admin: 10/26/16 21:18 Dose: 1 tab Carbidopa/Levodopa (Sinemet 25/100 -) 1 each PO TID MELANY Last Admin: 10/28/16 06:02 Dose: 1 each Diltiazem HCl (Cardizem Cd -) 240 mg PO DAILY [facility] Last Admin: 10/28/16 09:13 Dose: 240 mg Diltiazem HCl (Cardizem Injection -) 10 mg IVPUSH Q1H PRN PRN Reason: TACHYCARDIA Fentanyl (Sublimaze Injection -) 50 mcg IVPUSH [id number] PRN PRN Reason: PAIN Stop: 10/28/16 14:38 Heparin Sodium (Porcine) (Heparin -) 5,000 unit IVPUSH PRN PRN PRN Reason: Heparin Heparin Sodium (Porcine) (Heparin -) 1,000 unit IVPUSH PRN PRN PRN Reason: Heparin Last Admin: 10/26/16 11:00 Dose: 1,000 unit Heparin Sodium (Porcine) (Heparin -) 5,000 unit IVPUSH PRN PRN PRN Reason: Heparin Heparin Sodium/Dextrose (Heparin Infusion -) 500 mls @ 16 mls/hr IVPB TITR MELANY ; 800 UNITS/HR PRN Reason: Protocol Last Admin: 10/27/16 17:18 Dose: 20 mls/hr Aztreonam 1 gm/ Dextrose 50 mls @ 100 mls/hr IVPB Q8H-IV MELANY PRN Reason: Protocol Last Admin: 10/28/16 09:21 Dose: 100 mls/hr Clindamycin Phosphate (Cleocin 300 Mg Premix Ivpb) 50 mls @ 100 mls/hr IVPB Q6H -IV [facility]ELANY Last Admin: 10/28/16 09:21 Dose: 100 mls/hr Lactated Ringer's (Lactated Ringers Solution) 1,000 mls @ 125 mls/hr IV ASDIR [facility] Last Admin: 08/04/17 14:35 Dose: 125 mls/hr Magnesium Oxide (Mag-Ox -) 400 mg PO BID [facility] Last Admin: 10/28/16 09:13 Dose: 400 mg Metoprolol Succinate (Toprol Xl -) 50 mg PO DAILY [facility] Last Admin: 10/28/16 09:13 Dose: 50 mg Morphine Sulfate (Morphine Injection -) 2 mg IVPUSH Q4H PRN PRN Reason: PAIN - Objective Vital Signs: Vital Signs Temperature 98 F 10/28/16 05:43 Pulse Rate 75 10/28/16 05:43 Respiratory Rate 20 10/28/16 05:43 Blood Pressure 105/56 10/28/16 05:43 O2 Sat by Pulse Oximetry (%) 97 10/27/16 21:00 Constitutional: Yes: No Distress, Calm Eyes: Yes: Conjunctiva Clear Cardiovascular: Yes: Regular Rate and Rhythm Respiratory: Yes: Regular, CTA Bilaterally Gastrointestinal: Yes: Normal Bowel Sounds, Soft Musculoskeletal: Yes: Other Extremities: Yes: Other (gangrene of the toes) Integumentary: Yes: Other Wound/Incision: Yes: Other (gangrene of the toes) Labs: CBC, BMP 10/28/16 05:35 10/28/16 05:35 INR, PTT INR 1.24 (0.82-1.09) H 10/18/16 21:15 Assessment/Plan roblem List - Problems (1) Atrial fibrillation with rapid ventricular response Code(s): I48.91 - UNSPECIFIED ATRIAL FIBRILLATION (2) Gangrene Code(s): I96 - GANGRENE, NOT ELSEWHERE CLASSIFIED (3) Parkinson disease Code(s): G20 - PARKINSON'S DISEASE (4) Fall Code(s): W19.XXXA - UNSPECIFIED FALL, INITIAL ENCOUNTER Qualifiers: Encounter type: initial encounter Qualified Code(s): W19.XXXA - Unspecified fall, initial encounter (5) HTN (hypertension) Code(s): I10 - ESSENTIAL (PRIMARY) HYPERTENSION pvd leukocytosis plan continue abx will change to oral tomorrow final plan if or not amputation patient probably needs amputation
[2016-10-28] MEDS ORDERED: dilTIAZem HCL 50 MG/10 ML - 10 ML VIAL IVPUSH PRN (14:40)
[2016-10-28] MEDS ORDERED: ACETAMINOPHEN 325 MG TABLET (FP) PO PRN (14:40)
[2016-10-28] MEDS ORDERED: HEPARIN NA (PORCINE) 5,000 UNITS/ML 1ML VIAL IVPUSH PRN ×5 (14:40)
[2016-10-28] MEDS ORDERED: ACETAMINOPHEN WITH CODEINE 300MG/30MG TABLET PO PRN (14:40)
[2016-10-28] MEDS ORDERED: LACTATED RINGERS SOLUTION 1,000 ML IV SCH (14:40)
[2016-10-28] MEDS ORDERED: morphine CARPU-JECT 4 MG/1 ML DISP.SYRIN IVPUSH PRN (14:40)
[2016-10-28] MEDS: LACTATED RINGERS SOLUTION 1,000 ML IV SCH (15:21)
[2016-10-28] MEDS: HEPARIN INFUSION - 500 ML IVPB SCH (15:54)
--- NOTE | 2016-10-28 19:31 | PN ---
Progress Note (short form) - Note Progress Note: Vascular Surgery Pt seen and examined. Left foot warm. Pt feels better. Pt going to snf. PLease follow in wound care clinic in one week. Pt is a candidate for HBO for her left foot. No smoking. Can go to snf on plavix for iliac stents. Shaquille Wiggins DO
[2016-10-29] MEDS: CLINDAMYCIN 300 MG PREMIX IVPB 50 ML IVPB SCH (02:26)
[2016-10-29] MEDS: AZTREONAM 1 GM in DEXTROSE 5%-WATER - 50 ML IVPB SCH ×2 (02:26→11:34)
--- NOTE | 2016-10-29 06:24 | PN ---
Progress Note, Physician History of Present Illness: patient stable no new issues - Current Medication List Current Medications: Active Medications Acetaminophen (Tylenol -) 650 mg PO Q4H PRN PRN Reason: FEVER OR PAIN Acetaminophen/Codeine Phosphate (Tylenol # 3 -) 1 tab PO Q6H PRN PRN Reason: FEVER OR PAIN Carbidopa/Levodopa (Sinemet 25/100 -) 1 each PO TID [facility] Last Admin: 10/28/16 22:27 Dose: 1 each Diltiazem HCl (Cardizem Cd -) 240 mg PO DAILY [facility] Heparin Sodium (Porcine) (Heparin -) 1,000 unit IVPUSH PRN PRN PRN Reason: Heparin Heparin Sodium (Porcine) (Heparin -) 5,000 unit IVPUSH PRN PRN PRN Reason: Heparin Aztreonam 1 gm/ Dextrose 50 mls @ 100 mls/hr IVPB Q8H-IV [facility] PRN Reason: Protocol Last Admin: 10/29/16 02:26 Dose: 100 mls/hr Clindamycin Phosphate (Cleocin 300 Mg Premix Ivpb) 50 mls @ 100 mls/hr IVPB Q6H -IV [facility] Last Admin: 10/29/16 02:26 Dose: 100 mls/hr Heparin Sodium/Dextrose (Heparin Infusion -) 500 mls @ 16 mls/hr IVPB TITR [facility] ; 800 UNITS/HR PRN Reason: Protocol Last Admin: 10/28/16 15:54 Dose: 20 mls/hr Magnesium Oxide (Mag-Ox -) 400 mg PO BID [facility] Last Admin: 10/28/16 22:27 Dose: 400 mg Metoprolol Succinate (Toprol Xl -) 50 mg PO DAILY [facility] Morphine Sulfate (Morphine Injection -) 2 mg IVPUSH Q4H PRN PRN Reason: PAIN - Objective Vital Signs: Vital Signs Temperature 98.3 F 10/28/16 22:00 Pulse Rate 87 10/28/16 22:00 Respiratory Rate 16 10/28/16 22:00 Blood Pressure 111/46 10/28/16 22:00 O2 Sat by Pulse Oximetry (%) 97 10/28/16 22:00 Constitutional: Yes: No Distress, Calm Cardiovascular: Yes: Regular Rate and Rhythm Respiratory: Yes: Regular, CTA Bilaterally Gastrointestinal: Yes: Normal Bowel Sounds, Soft Musculoskeletal: Yes: Other Extremities: Yes: Other Wound/Incision: Yes: Dressing Dry and Intact, Other Neurological: Yes: Alert, Oriented Psychiatric: Yes: Alert, Oriented Labs: CBC, BMP 10/28/16 05:35 10/28/16 05:35 INR, PTT INR 1.24 (0.82-1.09) H 10/18/16 21:15 Assessment/Plan roblem List - Problems (1) Atrial fibrillation with rapid ventricular response Code(s): I48.91 - UNSPECIFIED ATRIAL FIBRILLATION (2) Gangrene Code(s): I96 - GANGRENE, NOT ELSEWHERE CLASSIFIED (3) Parkinson disease Code(s): G20 - PARKINSON'S DISEASE (4) Fall Code(s): W19.XXXA - UNSPECIFIED FALL, INITIAL ENCOUNTER Qualifiers: Encounter type: initial encounter Qualified Code(s): W19.XXXA - Unspecified fall, initial encounter (5) HTN (hypertension) Code(s): I10 - ESSENTIAL (PRIMARY) HYPERTENSION pvd leukocytosis plan plan is no amputation in that view will stop aztreonam continue oral clinda stop clinda after 5 days rest as per priamry team
[2016-10-29] MEDS: CARBIDOPA/LEVODOPA 25/100 TABLET (FP) PO SCH ×3 (07:12→23:45)
[2016-10-29 07:48] LABS: BASOPHIL 0.5 % (0-2.0); EOSINOPHIL 2.9 % (0-4.5); MCH 28.1 pg (25.7-33.7); MCHC 33.1 g/dl (32.0-36.0); MEAN CELL VOLUME 84.9 fl (80-96); MEAN PLT VOLUME 7.1 fl (7.5-11.1); NEUTROPHILS 68.5 % (42.8-82.8); PLATELET COUNT 308 K/MM3 (134-434); RDW 14.7 % (11.6-15.6); WHITE BLOOD COUNT 10.2 K/mm3 (4.0-10.0)
[2016-10-29 08:55] LABS: ANION GAP 5 (8-16); CALCIUM 9.6 mg/dL (8.5-10.1); CO2 30 mmol/L (21-32); CREATININE 0.4 mg/dL (0.55-1.02); GLUCOSE,RANDOM 102 mg/dL (74-106); MAGNESIUM 1.8 mg/dL (1.8-2.4); PHOSPHOROUS 3.3 mg/dL (2.5-4.9)
--- NOTE | 2016-10-29 09:39 | PN ---
Progress Note (short form) - Note Progress Note: Podiatry Brief Note: 71 year old PVD F s/p iliac angioplasty with Dr. Wiggins. Discussed with vascular surgery, will attempt to treat locally with aggressive wound care, Hyperbaric therapy, needs smoking cessation definitively. Still has some distal vascular disease and without smoking cessation will not heal any amputation procedure. Will follow in wound care center. Austyn Can DPM
[2016-10-29] MEDS ORDERED: PT OWN MED DRAWER 7, Y5N ONE ×2 (10:06→17:41)
[2016-10-29] MEDS: METOPROLOL SUCCINATE 50 MG TAB.SR.24H (FP) PO SCH (10:46)
[2016-10-29] MEDS: MAGNESIUM OXIDE 400 MG TABLET (FP) PO SCH ×2 (10:47→23:45)
--- NOTE | 2016-10-29 11:45 | PN ---
Progress Note, Physician Chief Complaint: Ms Wilson is without complaint. No cp, sob, n/v. Currently not complaining of pain in her foot. - Current Medication List Current Medications: Active Medications Acetaminophen (Tylenol -) 650 mg PO Q4H PRN PRN Reason: FEVER OR PAIN Acetaminophen/Codeine Phosphate (Tylenol # 3 -) 1 tab PO Q6H PRN PRN Reason: FEVER OR PAIN Last Admin: 10/29/16 10:52 Dose: 1 tab Carbidopa/Levodopa (Sinemet 25/100 -) 1 each PO TID [facility] Last Admin: 10/29/16 07:12 Dose: 1 each Clindamycin HCl (Cleocin -) 300 mg PO TID [facility] Diltiazem HCl (Cardizem Cd -) 240 mg PO DAILY [facility] Last Admin: 10/29/16 10:47 Dose: 240 mg Heparin Sodium (Porcine) (Heparin -) 1,000 unit IVPUSH PRN PRN PRN Reason: Heparin Heparin Sodium (Porcine) (Heparin -) 5,000 unit IVPUSH PRN PRN PRN Reason: Heparin Aztreonam 1 gm/ Dextrose 50 mls @ 100 mls/hr IVPB Q8H-IV [facility] PRN Reason: Protocol Last Admin: 10/29/16 11:34 Dose: 100 mls/hr Heparin Sodium/Dextrose (Heparin Infusion -) 500 mls @ 16 mls/hr IVPB TITR [facility] ; 800 UNITS/HR PRN Reason: Protocol Last Admin: 10/28/16 15:54 Dose: 20 mls/hr Magnesium Oxide (Mag-Ox -) 400 mg PO BID [facility] Last Admin: 10/29/16 10:47 Dose: 400 mg Metoprolol Succinate (Toprol Xl -) 50 mg PO DAILY [facility] Last Admin: 10/29/16 10:46 Dose: 50 mg Morphine Sulfate (Morphine Injection -) 2 mg IVPUSH Q4H PRN PRN Reason: PAIN - Objective Vital Signs: Vital Signs Temperature 98.3 F 10/29/16 07:11 Pulse Rate 75 10/29/16 07:11 Respiratory Rate 18 10/29/16 07:11 Blood Pressure 117/63 10/29/16 07:11 O2 Sat by Pulse Oximetry (%) 97 10/28/16 22:00 Constitutional: Yes: No Distress, Calm, Thin Cardiovascular: Yes: Pulse Irregular. No: Tachycardia, Gallop, Murmur, Rub Respiratory: Yes: Regular, CTA Bilaterally. No: Rales, Rhonchi, Wheezes Gastrointestinal: Yes: Normal Bowel Sounds, Soft. No: Distention, Tenderness Extremities: Yes: Other (gangrene L foot) Edema: No Labs: CBC, BMP 10/29/16 07:30 10/29/16 07:30 INR, PTT INR 1.24 (0.82-1.09) H 10/18/16 21:15 Problem List - Problems (1) Atrial fibrillation with rapid ventricular response Code(s): I48.91 - UNSPECIFIED ATRIAL FIBRILLATION (2) Gangrene Code(s): I96 - GANGRENE, NOT ELSEWHERE CLASSIFIED (3) Parkinson disease Code(s): G20 - PARKINSON'S DISEASE (4) Fall Code(s): W19.XXXA - UNSPECIFIED FALL, INITIAL ENCOUNTER Qualifiers: Encounter type: initial encounter Qualified Code(s): W19.XXXA - Unspecified fall, initial encounter (5) HTN (hypertension) Code(s): I10 - ESSENTIAL (PRIMARY) HYPERTENSION (6) Peripheral vascular disease Code(s): I73.9 - PERIPHERAL VASCULAR DISEASE, UNSPECIFIED Assessment/Plan (1) Atrial fibrillation with rapid ventricular response Assessment/Plan: -rate controlled -continue heparin gtt while not ambulating -cardiology to evaluate if safe for plavix or antiplatelet agent on discharge -high fall risk Code(s): I48.91 - UNSPECIFIED ATRIAL FIBRILLATION (2) Gangrene Assessment/Plan: -no amputation currently -will try hyperbaric oxygen therapy -continue IV antibiotics -ID following, defer transition to oral antibiotics to ID -once on oral antibiotics, discharge planning -would benefit from antiplatelet therapy -patient says will stop smoking Code(s): I96 - GANGRENE, NOT ELSEWHERE CLASSIFIED (3) Parkinson disease Assessment/Plan: -continue sinemet Code(s): G20 - PARKINSON'S DISEASE (4) Fall Assessment/Plan: -fall precautions -PT consulted and following Code(s): W19.XXXA - UNSPECIFIED FALL, INITIAL ENCOUNTER Qualifiers: Encounter type: initial encounter Qualified Code(s): W19.XXXA - Unspecified fall, initial encounter (5) HTN (hypertension) Assessment/Plan: -continue diltiazem -stable Code(s): I10 - ESSENTIAL (PRIMARY) HYPERTENSION (6) PVD -vascular surgery following -s/p stent placement
[2016-10-29] MEDS: CLINDAMYCIN HCL 150 MG CAPSULE (FP) PO SCH ×2 (14:56→23:45)
[2016-10-29] MEDS: HEPARIN INFUSION - 500 ML IVPB SCH (17:11)
[2016-10-29] MEDS ORDERED: ACETAMINOPHEN WITH CODEINE 300MG/30MG TABLET PO PRN (23:48)
[2016-10-30] MEDS: CARBIDOPA/LEVODOPA 25/100 TABLET (FP) PO SCH ×2 (06:29→15:14)
[2016-10-30] MEDS: CLINDAMYCIN HCL 150 MG CAPSULE (FP) PO SCH ×2 (06:29→15:13)
[2016-10-30 07:52] LABS: BASOPHIL 0.4 % (0-2.0); EOSINOPHIL 3.2 % (0-4.5); MCH 27.6 pg (25.7-33.7); MCHC 32.7 g/dl (32.0-36.0); MEAN CELL VOLUME 84.6 fl (80-96); MEAN PLT VOLUME 7.4 fl (7.5-11.1); NEUTROPHILS 65.3 % (42.8-82.8); PLATELET COUNT 338 K/MM3 (134-434); WHITE BLOOD COUNT 10.1 K/mm3 (4.0-10.0)
[2016-10-30 08:25] LABS: ANION GAP 6 (8-16); CALCIUM 9.6 mg/dL (8.5-10.1); CO2 28 mmol/L (21-32); CREATININE 0.4 mg/dL (0.55-1.02); GLUCOSE,RANDOM 104 mg/dL (74-106); MAGNESIUM 1.8 mg/dL (1.8-2.4); PHOSPHOROUS 3.9 mg/dL (2.5-4.9)
[2016-10-30] MEDS: MAGNESIUM OXIDE 400 MG TABLET (FP) PO SCH (10:36)
[2016-10-30] MEDS: METOPROLOL SUCCINATE 50 MG TAB.SR.24H (FP) PO SCH (10:36)
--- NOTE | 2016-10-30 11:50 | DS ---
Physical Examination Vital Signs: Vital Signs Temperature 37.1 C 10/30/16 10:00 Pulse Rate 78 10/30/16 10:00 Respiratory Rate 20 10/30/16 10:00 Blood Pressure 120/62 10/30/16 10:00 O2 Sat by Pulse Oximetry (%) 97 10/29/16 22:00 Constitutional: Yes: No Distress, Calm, Thin Cardiovascular: Yes: Pulse Irregular. No: Tachycardia, Gallop, Murmur, Rub Respiratory: Yes: Regular, CTA Bilaterally. No: Rales, Rhonchi, Wheezes Gastrointestinal: Yes: Normal Bowel Sounds, Soft. No: Distention, Tenderness Extremities: Yes: Other (gangrene L foot) Edema: No Labs: CBC, BMP 10/30/16 07:00 10/30/16 07:00 Discharge Summary Reason For Visit: GANGRENE Current Active Problems Gangrene (Acute) Ischemic leg (Acute) Leukocytosis (Acute) Parkinson disease (Acute) Peripheral vascular disease (Acute) Hospital Course: (1) Atrial fibrillation with rapid ventricular response Code(s): I48.91 - UNSPECIFIED ATRIAL FIBRILLATION (2) Gangrene Code(s): I96 - GANGRENE, NOT ELSEWHERE CLASSIFIED (3) Parkinson disease Code(s): G20 - PARKINSON'S DISEASE (4) Fall Code(s): W19.XXXA - UNSPECIFIED FALL, INITIAL ENCOUNTER Qualifiers: Encounter type: initial encounter Qualified Code(s): W19.XXXA - Unspecified fall, initial encounter (5) HTN (hypertension) Code(s): I10 - ESSENTIAL (PRIMARY) HYPERTENSION (6) Peripheral vascular disease Code(s): I73.9 - PERIPHERAL VASCULAR DISEASE, UNSPECIFIED Mrs Wilson is a pleasant 71 year old female who comes in with gangrene. She was admitted to the hospital and seen by vascular surgery, however she was found to have leukocytosis and atrial fibrillation with rvr. She was seen by ID and started on antibiotics. She was transferred to telemetry and seen by cardiology. Her esha agents were adjusted, and while she was not ambulatory she was placed on a heparin gtt. She underwent angiogram with stent placement. She was seen by podiatry and currently amputation is not indicated, will try hyperbaric oxygen therapy. Her heart rate is controlled and she is now on oral antibiotics. She is stable for transfer to SNF. Her heparin gtt will be stopped and she will be placed on plavix. She is not a candidate for full anticoagulation secondary to her high fall risk. 37 minutes spent in preparation of this discharge Condition: Guarded - Instructions Diet, Activity, Other Instructions: diabetic diet. Up with assistance, further activity per PT at SNF. Referrals: Tunde Can MD [Staff Physician] - Manohar Ramirez MD [Primary Care Provider] - Molina Castillo MD [Staff Physician] - Shaquille Wiggins MD [Staff Physician] - Disposition: [facility] - Home Medications Comprehensive Discharge Medication List: Ambulatory Orders Carbidopa/Levodopa [Carbidopa-Levodopa 25-100 Tab] 1 each PO TID 07/24/16 Diltiazem Cd [Cardizem Cd -] 240 mg PO DAILY 07/24/16 Acetaminophen W/ Codeine #3 [Tylenol # 3 -] 1 tab PO Q6H 10/18/16 Multivit-Min/Iron/Folic/Lutein [Centrum Silver Women Tablet] 1 each PO DAILY Clindamycin [Cleocin -] 300 mg PO TID 5 Days 10/30/16 Clopidogrel Bisulfate [Plavix -] 75 mg PO DAILY #30 tablet 10/30/16 Metoprolol Succinate [Toprol XL -] 50 mg PO DAILY tab.sr 10/30/16
[2016-10-30 15:53] VITALS: BP 113/55; PULSE 75; TEMP 99.1
--- NOTE | 2016-10-30 16:10 | PN ---
Progress Note, Physician History of Present Illness: patient stable no new issues - Current Medication List Current Medications: Active Medications Acetaminophen (Tylenol -) 650 mg PO Q4H PRN PRN Reason: FEVER OR PAIN Acetaminophen/Codeine Phosphate (Tylenol # 3 -) 1 tab PO Q6H PRN PRN Reason: FEVER OR PAIN Last Admin: 10/29/16 23:51 Dose: 1 tab Carbidopa/Levodopa (Sinemet 25/100 -) 1 each PO TID [facility] Last Admin: 10/30/16 15:14 Dose: 1 each Clindamycin HCl (Cleocin -) 300 mg PO TID [facility] Last Admin: 10/30/16 15:13 Dose: 300 mg Diltiazem HCl (Cardizem Cd -) 240 mg PO DAILY [facility] Last Admin: 10/30/16 10:36 Dose: 240 mg Heparin Sodium (Porcine) (Heparin -) 1,000 unit IVPUSH PRN PRN PRN Reason: Heparin Heparin Sodium (Porcine) (Heparin -) 5,000 unit IVPUSH PRN PRN PRN Reason: Heparin Heparin Sodium/Dextrose (Heparin Infusion -) 500 mls @ 16 mls/hr IVPB TITR [facility] ; 800 UNITS/HR PRN Reason: Protocol Last Admin: 10/29/16 17:11 Dose: 20 mls/hr Magnesium Oxide (Mag-Ox -) 400 mg PO BID [facility] Last Admin: 10/30/16 10:36 Dose: 400 mg Metoprolol Succinate (Toprol Xl -) 50 mg PO DAILY [facility] Last Admin: 10/30/16 10:36 Dose: 50 mg Morphine Sulfate (Morphine Injection -) 2 mg IVPUSH Q4H PRN PRN Reason: PAIN - Objective Vital Signs: Vital Signs Temperature 99.1 F 10/30/16 14:51 Pulse Rate 75 10/30/16 14:51 Respiratory Rate 18 10/30/16 14:51 Blood Pressure 113/55 10/30/16 14:51 O2 Sat by Pulse Oximetry (%) 97 10/29/16 22:00 Constitutional: Yes: No Distress, Calm Cardiovascular: Yes: Regular Rate and Rhythm Respiratory: Yes: Regular, CTA Bilaterally Gastrointestinal: Yes: Normal Bowel Sounds, Soft Musculoskeletal: Yes: Other Extremities: Yes: Other (gangrene of the toes) Neurological: Yes: Alert Psychiatric: Yes: Alert Labs: CBC, BMP 10/30/16 07:00 10/30/16 07:00 INR, PTT INR 1.24 (0.82-1.09) H 10/18/16 21:15 Assessment/Plan roblem List - Problems (1) Atrial fibrillation with rapid ventricular response Code(s): I48.91 - UNSPECIFIED ATRIAL FIBRILLATION (2) Gangrene Code(s): I96 - GANGRENE, NOT ELSEWHERE CLASSIFIED (3) Parkinson disease Code(s): G20 - PARKINSON'S DISEASE (4) Fall Code(s): W19.XXXA - UNSPECIFIED FALL, INITIAL ENCOUNTER Qualifiers: Encounter type: initial encounter Qualified Code(s): W19.XXXA - Unspecified fall, initial encounter (5) HTN (hypertension) Code(s): I10 - ESSENTIAL (PRIMARY) HYPERTENSION pvd leukocytosis plan plan is no amputation in that view will stop aztreonam continue oral clinda clinda for 5 days rest as per priamry team
== END 2016-10-30 16:36 | DRG 253 ==
LOC: JER 14:34 → JERBED 19:44 → J5S 21:38 → J4W 10-21 11:32 → J5S 10-28 13:58
PROVIDERS: ADMIT Internal Medicine; ATTEND Internal Medicine
PROC: 047J3DZ Dilation of Left External Iliac Artery with Intraluminal Device, Percutaneous Approach (ICD-10-PCS; 2016-10-25)
PROC: B40DYZZ Plain Radiography of Aorta and Bilateral Lower Extremity Arteries using Other Contrast (ICD-10-PCS; 2016-10-25)
PROC: B40GYZZ Plain Radiography of Left Lower Extremity Arteries using Other Contrast (ICD-10-PCS; 2016-10-25)
PROC: 047D3DZ Dilation of Left Common Iliac Artery with Intraluminal Device, Percutaneous Approach (ICD-10-PCS; principal; 2016-10-25 12:00)
DX: I73.89 Other specified peripheral vascular diseases (principal); L97.429 Non-pressure chronic ulcer of left heel and midfoot with unspecified severity; R64 Cachexia; Z68.1 Body mass index [BMI] 19.9 or less, adult; G24.8 Other dystonia; I74.5 Embolism and thrombosis of iliac artery; I10 Essential (primary) hypertension; G20 Parkinson's disease; I99.8 Other disorder of circulatory system; E78.00 Pure hypercholesterolemia, unspecified; F17.210 Nicotine dependence, cigarettes, uncomplicated; D72.828 Other elevated white blood cell count; I48.91 Unspecified atrial fibrillation; W18.39XA Other fall on same level, initial encounter; Y93.89 Activity, other specified; Y92.230 Patient room in hospital as the place of occurrence of the external cause; Y99.8 Other external cause status; Z91.81 History of falling; Z88.0 Allergy status to penicillin
CPT/HCPCS: 36415; 71010-TC; 75635-TC; 76000-TC; 80048; 80053; 82272; 83605; 83735; 84100; 84484; 85025; 85027; 85610; 85730; 86850; 86900; 86901; 87040; 93005; 93010; 93306-TC; 93925-TC; 93971-TC; 94760; 97116-GP; 97161-GP; 99282-25; J1644

== ENCOUNTER 2017-04-30 11:32 | Emergency (ER) | payer OTHER ==
[2017-04-30 11:43] VITALS: BMI 18.0
--- NOTE | 2017-04-30 12:48 | PDOC ---
History of Present Illness <Mallory Chiu - Last Filed: 04/30/17 15:21> - General History Source: Patient Exam Limitations: No Limitations - History of Present Illness Initial Comments: 04/30/17 16:32 Patient is a 71 year old female with a significant past medical history of PAD, HTN and parkinson's (frequent falls), as well as recent L hip fracture (no surgery here), who presents to the ED with complaints of bleeding from mouth that began earlier today. Patient reports falling 2.5 weeks ago causing right sided chest pain. She reports right sided chest pain is increased with dry cough, but does not radiate. Patient reports experiencing sudden onset of bleeding from mouth that began yesterday afternoon, prompting her to come to the ED for further evaluation stating, I thought i was coughing up blood because of my chest pain. Patient reports not seeing dentist in 3 to 4 years. Denies nausea, vomiting. Denies fevers, chills. Denies trauma to affected area, contact with sick individuals, out of state travelling. Denies any other symptoms. Allergies: Aspirin, Penicillin. Social history: No smoking, No alcohol. No illicit drugs. Surgical history: Left foot toe amputation x2 toes, s/p 3 months. PMD: None <Fabian Tejada - Last Filed: 04/30/17 16:35> - General Chief Complaint: Weakness Stated Complaint: BLEEDING MOUTH/weakness Time Seen by Provider: 04/30/17 12:07 Past History - Past Medical History Anemia: Yes Asthma: No Cancer: No Cardiac Disorders: Yes CVA: No COPD: No CHF: No Dementia: No Diabetes: Yes GI Disorders: No Disorders: No HTN: Yes Hypercholesterolemia: No Liver Disease: No Seizures: No Thyroid Disease: No - Surgical History Abdominal Surgery: No Appendectomy: No Cardiac Surgery: No Cholecystectomy: No Lung Surgery: No Neurologic Surgery: No Orthopedic Surgery: No - Immunization History Immunization Up to Date: Yes - Suicide/Smoking/Psychosocial Hx Smoking History: Never smoked Have you smoked in the past 12 months: Yes Number of Cigarettes Smoked Daily: 5 If you are a former smoker, when did you quit?: August 2016 Information on smoking cessation initiated: No 'Breaking Loose' booklet given: 08/10/16 Hx Alcohol Use: No Drug/Substance Use Hx: No Substance Use Type: None <Mallory Chiu - Last Filed: 04/30/17 15:21> <Fabian Tejada - Last Filed: 04/30/17 16:35> - Past Medical History Allergies/Adverse Reactions: Allergies Allergy/AdvReac Type Severity Reaction Status Date / Time aspirin Allergy Verified 04/30/17 11:43 Penicillins Allergy Verified 04/30/17 11:43 Home Medications: Ambulatory Orders Carbidopa/Levodopa [Carbidopa-Levodopa 25-100 Tab] 1 each PO TID 07/24/16 Diltiazem Cd [Cardizem Cd -] 240 mg PO DAILY 07/24/16 Multivit-Min/Iron/Folic/Lutein [Centrum Silver Women Tablet] 1 each PO DAILY Metoprolol Succinate [Toprol XL -] 50 mg PO DAILY tab.sr 10/30/16 Aa/Hydrolyzed Collagen, Whey [Lps Neutral Flavor Liquid] 15 gm PO DAILY Ascorbate Calcium [Vitamin C] 1 tab PO BID 12/09/16 Lactobacillus Acidophilus [Bacid -] 1 tab PO DAILY 12/09/16 Zinc Sulfate 1 cap PO DAILY 12/09/16 Acetaminophen W/ Codeine #3 [Tylenol # 3 -] 1 tab PO QID 01/17/17 Collagenase Clostridium Hist. [Santyl] 1 applic TP DAILY #90 oint...g. 03/10/17 Clopidogrel Bisulfate [Plavix] 75 mg PO DAILY 04/30/17 Review of Systems - Review of Systems Able to Perform ROS?: Yes Comments:: 04/30/17 16:32 GENERAL/CONSTITUTIONAL: No fever or chills. No weakness. HEAD, EYES, EARS, NOSE AND THROAT: +Hemoptysis. No change in vision. No ear pain or discharge. No sore throat. GASTROINTESTINAL: No nausea, vomiting, diarrhea or constipation. GENITOURINARY: No dysuria, frequency, or change in urination. CARDIOVASCULAR: +Right sided Chest pain. No shortness of breath. RESPIRATORY: No cough, wheezing, or hemoptysis. MUSCULOSKELETAL: No joint or muscle swelling or pain. No neck or back pain. SKIN: No rash NEUROLOGIC: No headache, vertigo, loss of consciousness, or change in strength/ sensation. ENDOCRINE: No increased thirst. No abnormal weight change. HEMATOLOGIC/LYMPHATIC: No anemia, easy bleeding, or history of blood clots. ALLERGIC/IMMUNOLOGIC: No hives or skin allergy. 04/30/17 16:34 <Fabian Tejada - Last Filed: 04/30/17 16:35> *Physical Exam - Vital Signs Last Vital Signs Temp Pulse Resp BP Pulse Ox 98.3 F 104 H 18 112/56 100 04/30/17 11:39 04/30/17 11:39 04/30/17 11:39 04/30/17 11:39 04/30/17 11:39 <Mallory Cihu - Last Filed: 04/30/17 15:21> - Vital Signs Last Vital Signs Temp Pulse Resp BP Pulse Ox 98.3 F 104 H 18 112/56 98 04/30/17 11:39 04/30/17 11:39 04/30/17 11:39 04/30/17 11:39 04/30/17 12:25 - Physical Exam Comments: 04/30/17 16:33 GENERAL: +General weakness. +Failure to thrive. Awake, alert, and fully oriented, in no acute distress HEAD: No signs of trauma EYES: PERRLA, EOMI, sclera anicteric, conjunctiva clear ENT: +Degradation of gum with active bleeding. +Loose teeth. Auricles normal inspection, hearing grossly normal, nares patent, oropharynx clear without exudates. Moist mucosa NECK: Normal ROM, supple, no lymphadenopathy, JVD, or masses LUNGS: Breath sounds equal, clear to auscultation bilaterally. No wheezes, and no crackles HEART: +Right chest tenderness to palpation. Regular rate and rhythm, normal S1 and S2, no murmurs, rubs or gallops ABDOMEN: Soft, nontender, normoactive bowel sounds. No guarding, no rebound. No masses EXTREMITIES: +Left foot boot. Normal range of motion, no edema. No clubbing or cyanosis. No cords, erythema, or tenderness NEUROLOGICAL: Cranial nerves II through XII grossly intact. Normal speech, normal gait SKIN: Warm, Dry, normal turgor, no rashes or lesions noted. <Fabian Tejada - Last Filed: 04/30/17 16:35> Heart Score/ECG Review - ECG Intrepretation Comment:: 04/30/17 15:02 afib at 95, nl axis, nl interval, mild st depression v2, no other acute changes <Mallory Chiu - Last Filed: 04/30/17 15:21> ED Treatment Course - LABORATORY CBC & Chemistry Diagram: 04/30/17 13:55 04/30/17 13:55 <Mallory Chiu - Last Filed: 04/30/17 15:21> - LABORATORY CBC & Chemistry Diagram: 04/30/17 13:55 04/30/17 13:55 - ADDITIONAL ORDERS Additional order review: Laboratory Results 04/30/17 04/30/17 04/30/17 14:20 13:55 13:55 PT with INR 14.20 H INR 1.26 H PTT (Actin FS) 32.3 D Sodium 138 Potassium 3.9 Chloride 104 Carbon Dioxide 27 Anion Gap 7 L BUN 11 Creatinine 0.5 L Creat Clearance w eGFR > 60 Random Glucose 82 Calcium 9.7 Magnesium 1.7 L Total Bilirubin 0.6 D AST 20 ALT 7 L Alkaline Phosphatase 175 H Creatine Kinase 38 Troponin I < 0.02 Total Protein 8.5 H Albumin 3.1 L Urine Color Ltyellow Urine Appearance Clear Urine pH 5.0 Ur Specific [place] 1.009 Urine Protein Negative Urine Glucose (UA) Negative Urine Ketones Trace H Urine Blood 2+ H Urine Nitrite Negative Urine Bilirubin Negative Urine Urobilinogen 2.0 H Ur Leukocyte Esterase Negative Urine WBC (Auto) 1 Urine RBC (Auto) 12 Ur Epithelial Cells Rare Blood Type Antibody Screen 04/30/17 12:48 PT with INR INR PTT (Actin FS) Sodium Potassium Chloride Carbon Dioxide Anion Gap BUN Creatinine Creat Clearance w eGFR Random Glucose Calcium Magnesium Total Bilirubin AST ALT Alkaline Phosphatase Creatine Kinase Troponin I Total Protein Albumin Urine Color Urine Appearance Urine pH Ur Specific [place] Urine Protein Urine Glucose (UA) Urine Ketones Urine Blood Urine Nitrite Urine Bilirubin Urine Urobilinogen Ur Leukocyte Esterase Urine WBC (Auto) Urine RBC (Auto) Ur Epithelial Cells Blood Type A POSITIVE Antibody Screen Negative 04/30/17 13:55 RBC 4.23 D MCV 81.6 MCHC 31.3 L RDW 15.3 MPV 7.3 L Neutrophils % 60.8 Lymphocytes % 21.1 Monocytes % 14.7 H D Eosinophils % 3.0 Basophils % 0.4 - Medications Given in the ED: ED Medications Discontinued Medications Generic Name Dose Route Start Last Admin Trade Name Freq PRN Reason Stop Dose Admin Sodium Chloride 1,000 ml 04/30/17 12:50 04/30/17 15:08 Normal Saline - IV 04/30/17 12:51 1,000 ml ONCE ONE Administration <Fabian Tejada - Last Filed: 04/30/17 16:35> Medical Decision Making - Medical Decision Making 04/30/17 14:55 a/p: 71yo female with lower L gum necrosis and active bleeding from the gums -pt denies trauma poor dentition active bleeding washed mouth out with ice saline and bleeding stopped necrotic tissue to L lower jaw will check labs, ekg Rib tenderness after a fall 3 weeks ago will check rib series 04/30/17 14:56 call placed to OMFS - Dr. Gunn at [facility] recommends admission to medicine 04/30/17 14:[address] Washington from the medicine service at [facility] questions whether this is a medicine or surgical admission will discuss with his team and will call back in 10min 04/30/17 15:[address] Washington to the medicine service at [facility] consent for transfer obtained from the patient <Mallory Chiu - Last Filed: 04/30/17 15:21> *DC/Admit/Observation/Transfer - Discharge Dispostion Admit: No - Transfer to Acute Care Facility Receiving Facility: [facility]. Accepting Physician:: Dr. Washington - Attestations Physician Attestion: 04/30/17 15:23 I, Dr. Mallory Chiu DO, attest that this document has been prepared under my direction and personally reviewed by me in its entirety. I further attest, that it accurately reflects all work, treatment, procedures and medical decision -making performed by me. <Mallory Chiu - Last Filed: 04/30/17 15:21> - Attestations Scribe Attestion: 04/30/17 16:33 Documentation prepared by Fabian Tejada, acting as medical receptionist medical assistant for Mallory Chiu DO, MD/. <Fabian Tejada - Last Filed: 04/30/17 16:35> Diagnosis at time of Disposition: Gum hemorrhage - Discharge Dispostion Disposition: TRANSFER ACUTE CARE/OTHER HOSP Condition at time of disposition: Fair
[2017-04-30] MEDS ORDERED: SODIUM CHLORIDE 0.9% 1000 ML INFUS.BAG IV ONE (12:50)
[2017-04-30 14:05] LABS: BASO % 0.4 % (0-2.0); HEMATOCRIT 34.5 % (32.4-45.2); HEMOGLOBIN 10.8 GM/dL (10.7-15.3); LYMPH % 21.1 % (8-40); MCH 25.6 pg (25.7-33.7); MCHC 31.3 g/dl (32.0-36.0); MEAN CELL VOLUME 81.6 fl (80-96); MEAN PLT VOLUME 7.3 fl (7.5-11.1); MONO % 14.7 % (3.8-10.2); NEUT % 60.8 % (42.8-82.8); PLATELET COUNT 238 K/MM3 (134-434); RBC 4.23 M/mm3 (3.60-5.2); RDW 15.3 % (11.6-15.6); WHITE BLOOD COUNT 5.5 K/mm3 (4.0-10.0)
[2017-04-30 14:19] LABS: INR 1.26 (0.82-1.09); PROTHROMBIN TIME (PATIENT) 14.2 SEC (9.98-11.88)
[2017-04-30 14:21] LABS: ACTIVATED PTT 32.3 SECONDS (26.9-34.4)
[2017-04-30 14:30] LABS: URINE APPEARANCE CLEAR; URINE BILIRUBIN NEGATIVE (NEGATIVE); URINE BLOOD 2+ (NEGATIVE); URINE COLOR LTYELLOW; URINE GLUCOSE (UA) NEGATIVE (NEGATIVE); URINE KETONE TRACE (NEGATIVE); URINE LEUK ESTERASE NEGATIVE (NEGATIVE); URINE NITRITE NEGATIVE (NEGATIVE); URINE PROTEIN NEGATIVE (NEGATIVE)
[2017-04-30 14:39] LABS: ALBUMIN 3.1 g/dl (3.4-5.0); ANION GAP 7 (8-16); BILIRUBIN,TOTAL 0.6 mg/dL (0.2-1.0); BLOOD UREA NITROGEN 11 mg/dL (7-18); CALCIUM 9.7 mg/dL (8.5-10.1); CHLORIDE 104 mmol/L (98-107); CO2 27 mmol/L (21-32); CREATININE 0.5 mg/dL (0.55-1.02); GLUCOSE,RANDOM 82 mg/dL (74-106); MAGNESIUM 1.7 mg/dL (1.8-2.4); POTASSIUM 3.9 mmol/L (3.5-5.1); SGOT/AST 20 U/L (15-37); SGPT/ALT 7 U/L (12-78); SODIUM 138 mmol/L (136-145); TOT PROT 8.5 g/dl (6.4-8.2)
[2017-04-30 14:42] LABS: ALK PHOS 175 U/L (45-117)
[2017-04-30 14:50] LABS: EPI CELLS RARE /HPF (FEW)
[2017-04-30] MEDS ORDERED: DEXTROSE 5%-0.45% SALINE 1,000 ML IV SCH (18:45)
[2017-04-30 18:51] VITALS: PULSE 89; TEMP 98
[2017-04-30 19:10] VITALS: BP 118/75
--- NOTE | 2017-05-01 12:07 | EKG ---
Test Reason : Blood Pressure : / mmHG Vent. Rate : 095 BPM Atrial Rate : 113 BPM P-R Int : 000 ms QRS Dur : 076 ms QT Int : 370 ms P-R-T Axes : 000 -09 022 degrees QTc Int : 464 ms POOR DATA QUALITY, INTERPRETATION MAY BE ADVERSELY AFFECTED ATRIAL FIBRILLATION ABNORMAL ECG WHEN COMPARED WITH ECG OF 21-OCT-2016 10:02, VENT. RATE HAS DECREASED BY 62 BPM T WAVE INVERSION NOW EVIDENT IN ANTERIOR LEADS Confirmed by MARCOS HICKMAN MD ([id number]) on 05/01/2017 12:07:01 PM Referred By: Confirmed By:MARCOS HICKMAN MD
== END 2017-05-01 01:10 | disposition short-term general hospital (02) ==
LOC: JER 11:32
PROC: 3E0337Z Introduction of Electrolytic and Water Balance Substance into Peripheral Vein, Percutaneous Approach (ICD-10-PCS; principal; 2017-04-30)
DX: K13.79 Other lesions of oral mucosa (principal); I10 Essential (primary) hypertension; I51.9 Heart disease, unspecified; D64.9 Anemia, unspecified; E11.9 Type 2 diabetes mellitus without complications
CPT/HCPCS: 36415; 71101-TC-RT-FY; 80053; 81003; 81015; 82550; 83735; 84484; 85025; 85610; 85730; 86850; 86900; 86901; 93005; 93010; 99285-25

== ENCOUNTER 2017-05-14 07:10 | Observation (INO) | payer OTHER ==
--- NOTE | 2017-05-14 08:34 | PDOC ---
History of Present Illness - General Chief Complaint: Injury Stated Complaint: HEAD PAIN S/P FALL Time Seen by Provider: 05/14/17 08:14 History Source: Patient - History of Present Illness Timing/Duration: other (this am) Associated Symptoms: denies: chest pain, diaphoresis, headaches, nausea/vomiting , shortness of breath, weakness Past History - Past Medical History Allergies/Adverse Reactions: Allergies Allergy/AdvReac Type Severity Reaction Status Date / Time aspirin Allergy Verified 05/14/17 07:17 Penicillins Allergy Verified 05/14/17 07:17 Home Medications: Ambulatory Orders Carbidopa/Levodopa [Carbidopa-Levodopa 25-100 Tab] 1 each PO TID 07/24/16 Diltiazem Cd [Cardizem Cd -] 240 mg PO DAILY 07/24/16 Multivit-Min/Iron/Folic/Lutein [Centrum Silver Women Tablet] 1 each PO DAILY Metoprolol Succinate [Toprol XL -] 50 mg PO DAILY tab.sr 10/30/16 Aa/Hydrolyzed Collagen, Whey [Lps Neutral Flavor Liquid] 15 gm PO DAILY Zinc Sulfate 1 cap PO DAILY 12/09/16 Collagenase Clostridium Hist. [Santyl] 1 applic TP DAILY #90 oint...g. 03/10/17 Clopidogrel Bisulfate [Plavix] 75 mg PO DAILY 04/30/17 Anemia: Yes Asthma: No Cancer: No Cardiac Disorders: Yes CVA: No COPD: No CHF: No Dementia: No Diabetes: No (pt denies) GI Disorders: No Disorders: No HTN: Yes Hypercholesterolemia: No Liver Disease: No Seizures: No Thyroid Disease: No - Surgical History Abdominal Surgery: No Appendectomy: No Cardiac Surgery: No Cholecystectomy: No Lung Surgery: No Neurologic Surgery: No Orthopedic Surgery: No - Immunization History Immunization Up to Date: Yes - Suicide/Smoking/Psychosocial Hx Smoking History: Former smoker Have you smoked in the past 12 months: No Number of Cigarettes Smoked Daily: 5 If you are a former smoker, when did you quit?: August 2016 Information on smoking cessation initiated: No 'Breaking Loose' booklet given: 08/10/16 Hx Alcohol Use: No Drug/Substance Use Hx: No Substance Use Type: None Review of Systems - Review of Systems Constitutional: No: Fever Respiratory: No: Shortness of Breath Cardiac (ROS): Yes: Lightheadedness, Palpitations. No: Chest Pain ABD/GI: No: Nausea, Vomiting : No: Dysuria *Physical Exam - Vital Signs Last Vital Signs Temp Pulse Resp BP Pulse Ox 97.8 F 127 H 20 111/75 97 05/14/17 07:12 05/14/17 07:12 05/14/17 07:12 05/14/17 07:12 05/14/17 07:12 - Physical Exam General Appearance: Yes: Appropriately Dressed. No: Apparent Distress HEENT: positive: Normal Voice Neck: positive: Supple Respiratory/Chest: positive: Lungs Clear, Normal Breath Sounds. negative: Respiratory Distress Cardiovascular: positive: Irregularly Irregular Extremity: positive: Normal Inspection, Other (no deformity, able to bear weight ). negative: Tender, Swelling Integumentary: positive: Dry, Warm ED Treatment Course - LABORATORY CBC & Chemistry Diagram: 05/14/17 09:00 05/14/17 09:00 - RADIOLOGY Radiology Studies Ordered: Category Date Time Status HEAD CT WITHOUT CONTRAST [CT] Stat CT Scan 05/14/17 08:26 Ordered CHEST X-RAY PORTABLE* [RAD] Stat Radiology 05/14/17 08:25 Ordered HIP & PELVIS-LEFT [RAD] Stat Radiology 05/14/17 08:26 Ordered HIP & PELVIS-RIGHT [RAD] Stat Radiology 05/14/17 08:26 Ordered Medical Decision Making - Medical Decision Making 05/14/17 08:34 71-year-old female, history of hypertension, PAD, afib, not on AC 2/2 frequent falls, Parkinson's, ambulates with a walker, left hip fracture (no surgery), here with fall this a.m. Patient states she got out of bed at about 4 AM today to go to the restroom, using her walker. States as she was about to sit on toilet she became lightheaded which caused her to fall to the ground, landing mostly on her left side and striking front of her head against the door. Denies LOC and no headache, dizziness, nausea or vomiting at this time. Complaining of mild pain to left hip, but states she has been able to bear weight with help from her . Also c/o ?palpitations but no CP or SOB. Denies vertigo, speech changes, blurry vision or focal weakness. Denies history of similar dizziness in the past. See exam Fall in setting of dizziness R/o cardiac vs metabolic vs infectious, less likely neuro, i.e CVA Pt tachy to 127 w/ ?irreg, irreg rhythm on exam -ekg -cxr -labs -CT head -XR hips -anticipate admission 05/14/17 08:43 A. fib to 103 on EKG. No intervention needed at this time as per ED attending. Labs, x-rays and CT pending. Will contact PMD and cards and admit 05/14/17 12:[address] neg. Pt admitted to tele w/ cards c/s placed *DC/Admit/Observation/Transfer Diagnosis at time of Disposition: Dizziness Fall Qualifiers: Encounter type: initial encounter Qualified Code(s): W19.XXXA - Unspecified fall, initial encounter Afib Qualifiers: Atrial fibrillation type: unspecified Qualified Code(s): I48.91 - Unspecified atrial fibrillation - Discharge Dispostion Condition at time of disposition: Fair Admit: Yes - Referrals - Patient Instructions - Post Discharge Activity
[2017-05-14 09:06] LABS: EOS % 0.6 % (0-4.5); HEMATOCRIT 33.1 % (32.4-45.2); HEMOGLOBIN 10.6 GM/dL (10.7-15.3); LYMPH % 17.4 % (8-40); MCH 25.6 pg (25.7-33.7); MCHC 31.9 g/dl (32.0-36.0); MEAN CELL VOLUME 80.2 fl (80-96); MEAN PLT VOLUME 7.5 fl (7.5-11.1); MONO % 5.5 % (3.8-10.2); NEUT % 75.5 % (42.8-82.8); PLATELET COUNT 310 K/MM3 (134-434); RBC 4.13 M/mm3 (3.60-5.2); RDW 14.5 % (11.6-15.6); WHITE BLOOD COUNT 9.6 K/mm3 (4.0-10.0)
--- NOTE | 2017-05-14 09:35 | PDOC ---
*Physical Exam - Vital Signs Last Vital Signs Temp Pulse Resp BP Pulse Ox 97.8 F 127 H 20 111/75 98 05/14/17 07:12 05/14/17 07:12 05/14/17 07:12 05/14/17 07:12 05/14/17 09:03 - Physical Exam Comments: 05/14/17 09:35 The patient was examined by [FLORENTIN Yang] under my direct supervision. I personally evaluated the patient. I concur with the above findings and the plan of care. ED Treatment Course - LABORATORY CBC & Chemistry Diagram: 05/16/17 06:50 05/16/17 06:50 - ADDITIONAL ORDERS Additional order review: 05/14/17 09:00 RBC 4.13 MCV 80.2 MCHC 31.9 L RDW 14.5 MPV 7.5 Neutrophils % 75.5 D Lymphocytes % 17.4 Monocytes % 5.5 Eosinophils % 0.6 Basophils % 1.0 *DC/Admit/Observation/Transfer Diagnosis at time of Disposition: Dizziness, Fall, Afib - Discharge Dispostion Disposition: VNS/HOME HEALTH CARE Condition at time of disposition: Fair - Prescriptions - Referrals - Patient Instructions - Post Discharge Activity
[2017-05-14 09:38] LABS: ALBUMIN 2.7 g/dl (3.4-5.0); ANION GAP 7 (8-16); BILIRUBIN,TOTAL 0.5 mg/dL (0.2-1.0); BLOOD UREA NITROGEN 10 mg/dL (7-18); CHLORIDE 103 mmol/L (98-107); CO2 25 mmol/L (21-32); CREATININE 0.5 mg/dL (0.55-1.02); GLUCOSE,RANDOM 118 mg/dL (74-106); SGOT/AST 10 U/L (15-37); SGPT/ALT < 6 U/L (12-78); SODIUM 135 mmol/L (136-145)
[2017-05-14 09:40] LABS: ALK PHOS 141 U/L (45-117)
[2017-05-14] MEDS ORDERED: LORazepam 1 MG TABLET PO ONE (09:59)
[2017-05-14] MEDS ORDERED: LORazepam 2 MG/ML SDV VIAL ONE (10:02)
[2017-05-14 11:20] LABS: URINE APPEARANCE CLEAR; URINE BILIRUBIN NEGATIVE (NEGATIVE); URINE BLOOD 1+ (NEGATIVE); URINE COLOR STRAW; URINE GLUCOSE (UA) NEGATIVE (NEGATIVE); URINE KETONE NEGATIVE (NEGATIVE); URINE LEUK ESTERASE NEGATIVE (NEGATIVE); URINE NITRITE NEGATIVE (NEGATIVE); URINE PROTEIN NEGATIVE (NEGATIVE); URINE UROBILINOGEN NEGATIVE mg/dL (0.2-1.0)
[2017-05-14 11:44] LABS: EPI CELLS RARE /HPF (FEW)
--- NOTE | 2017-05-14 12:25 | HP ---
Admitting History and Physical - Primary Care Physician PCP: Manohar Ramirez - Admission Chief Complaint: "fell this am" History of Present Illness: is a 71 year old female with pmh of htn, frequent falls, parkinsons, pvd s/p left phalanges amputation. Presents today s/p fall at home. Pt reports she got up this morning to go to bathroom, did not use walker, felt dizzy and fell on the floor hitting her head, no LOC. Pt denies any chest pain, sob, loss of vision, blurry vision, n/v/d, dysuria, fever/chills, or headaches. at bedside. reports pt has been intermittently confused, which is chronic, also with worsening dystonia, reduced po intake x 1 week. 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: Other (Dystonia) Cardiovascular: Yes: HTN Psych: Yes: Anxiety - Past Surgical History Past Surgical History: Yes: None, Amputation (left 2nd, 3rd phalanges), Stent ( lle) - Smoking History Smoking history: Former smoker Have you smoked in the past 12 months: No Aproximately how many cigarettes per day: 5 If you are a former smoker, when did you quit?: August 2016 - Alcohol/Substance Use Hx Alcohol Use: No History of Substance Use: reports: None - Social History ADL: Independent 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 [employer] History of Recent Travel: No Home Medications - Allergies Allergies/Adverse Reactions: Allergies Allergy/AdvReac Type Severity Reaction Status Date / Time aspirin Allergy Verified 05/14/17 07:17 Penicillins Allergy Verified 05/14/17 07:17 - Home Medications Home Medications: Ambulatory Orders Carbidopa/Levodopa [Carbidopa-Levodopa 25-100 Tab] 1 each PO TID 07/24/16 Diltiazem Cd [Cardizem Cd -] 240 mg PO DAILY 07/24/16 Multivit-Min/Iron/Folic/Lutein [Centrum Silver Women Tablet] 1 each PO DAILY Metoprolol Succinate [Toprol XL -] 50 mg PO DAILY tab.sr 10/30/16 Aa/Hydrolyzed Collagen, Whey [Lps Neutral Flavor Liquid] 15 gm PO DAILY Zinc Sulfate 1 cap PO DAILY 12/09/16 Collagenase Clostridium Hist. [Santyl] 1 applic TP DAILY #90 oint...g. 03/10/17 Clopidogrel Bisulfate [Plavix] 75 mg PO DAILY 04/30/17 Family Disease History - Family Disease History Family History: Unable to Obtain (due to pt's current mental status) Review of Systems Unable to obtain ROS, reason: as per hpi Findings/Remarks: as per hpi Physical Examination Vital Signs: Vital Signs Temperature 97.8 F 05/14/17 07:12 Pulse Rate 127 H 05/14/17 07:12 Respiratory Rate 20 05/14/17 07:12 Blood Pressure 111/75 05/14/17 07:12 O2 Sat by Pulse Oximetry (%) 98 05/14/17 09:03 Constitutional: Yes: Anxious, Thin Eyes: Yes: Conjunctiva Clear Cardiovascular: Yes: Tachycardia, Pulse Irregular. No: JVD, Gallop, Murmur Respiratory: Yes: Regular, CTA Bilaterally, Diminished. No: Rales, Rhonchi, SOB , Tachypnea Gastrointestinal: Yes: WNL, Normal Bowel Sounds, Soft. No: Distention, Tenderness Extremities: Yes: Amputation (left 2nd 3rd phalanges) Edema: No Neurological: Yes: Alert, Confusion Psychiatric: Yes: Alert Labs: CBC, BMP 05/14/17 09:00 05/14/17 09:00 Imaging - Results Chest X-ray: Report Reviewed X-ray: Report Reviewed Cat Scan: Report Reviewed EKG: Pending Problem List - Problems (1) Fall Assessment/Plan: s/p fall w/o LOC with impact on head, no acute changes neurologically head ct, chest, hip xrays neg labs wnl neuro checks repeat head ct tomorrow PT ordered Code(s): W19.XXXA - UNSPECIFIED FALL, INITIAL ENCOUNTER Qualifiers: Encounter type: initial encounter Qualified Code(s): W19.XXXA - Unspecified fall, initial encounter (2) Pre-syncope Assessment/Plan: s/p fall at home orthostatic bp pending cardiac echo ordered tele labs wnl ua neg, uc pending cardiology, neurology consulted Code(s): R55 - SYNCOPE AND COLLAPSE (3) Parkinson disease Assessment/Plan: unsure if dx confirmed, reports pt has a first time appointment with progressive dystonia, bradykinisia with intermittent confusion, poor po intake over the last week continue carbidopa/levodopa speech eval done, pt started on dysphagia whole consider barium swallow study if signs of aspiration Neurology consulted for further management and recs Code(s): G20 - PARKINSON'S DISEASE (4) Afib Assessment/Plan: chronic, HR in 100s ekg pending not on AC due to frequent falls metoprolol 50mg hold cardizem for now in the setting of hypotension cardiology consulted Code(s): I48.91 - UNSPECIFIED ATRIAL FIBRILLATION Qualifiers: Atrial fibrillation type: chronic Qualified Code(s): I48.2 - Chronic atrial fibrillation (5) HTN (hypertension) Assessment/Plan: controlled continue metoprolol hold cardizen at the moment Code(s): I10 - ESSENTIAL (PRIMARY) HYPERTENSION Qualifiers: Hypertension type: essential hypertension Qualified Code(s): I10 - Essential (primary) hypertension (6) Peripheral vascular disease Assessment/Plan: s/p angiogram, stent lle , 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 continue plavix Code(s): I73.9 - PERIPHERAL VASCULAR DISEASE, UNSPECIFIED (7) Dehydration Assessment/Plan: secondary to poor po intake, cr slightly elevated from baseline 500ml bolus given will monitor Code(s): E86.0 - DEHYDRATION (8) Aneurysm, abdominal aortic Assessment/Plan: stable will monitor Code(s): I71.4 - ABDOMINAL AORTIC ANEURYSM, WITHOUT RUPTURE Qualifiers: Presence of rupture: without rupture Qualified Code(s): I71.4 - Abdominal aortic aneurysm, without rupture (9) Hypophonia Assessment/Plan: secondary to underlying disease process speech eval recommends LSVT speech training for improved Speech production and [employer] personal amplifer to facilitate communication Code(s): R49.8 - OTHER VOICE AND RESONANCE DISORDERS (10) Bradykinesia Assessment/Plan: as above Code(s): R25.8 - OTHER ABNORMAL INVOLUNTARY MOVEMENTS
[2017-05-14] MEDS ORDERED: SODIUM CHLORIDE 500 ML IV STA (12:35)
[2017-05-14] MEDS ORDERED: HEPARIN NA (PORCINE) 5,000 UNITS/ML 1ML VIAL ONE (13:23)
[2017-05-14] MEDS ORDERED: CARBIDOPA/LEVODOPA 25/100 TABLET (FP) ONE ×2 (13:23→21:40)
[2017-05-14] MEDS ORDERED: CLOPIDOGREL BISULFATE 75 MG TABLET (FP) ONE (13:23)
[2017-05-14] MEDS: HEPARIN NA (PORCINE) 5,000 UNITS/ML 1ML VIAL SQ SCH ×2 (13:24→22:53)
[2017-05-14] MEDS: CLOPIDOGREL BISULFATE 75 MG TABLET (FP) PO SCH (13:25)
[2017-05-14] MEDS: CARBIDOPA/LEVODOPA 25/100 TABLET (FP) PO SCH ×2 (13:29→22:53)
--- NOTE | 2017-05-14 14:52 | CONSULT ---
Admitting History and Physical - Primary Care Physician PCP: Mitzi Steinberg - Admission History of Present Illness: Per emr: Chief Complaint: "fell this am" History of Present Illness: is a 71 year old female with pmh of htn, frequent falls, parkinsons, pvd s/p left phalanges amputation. Presents today s/p fall at home. Pt reports she got up this morning to go to bathroom, did not use walker, felt dizzy and fell on the floor hitting her head, no LOC. Pt denies any chest pain, sob, loss of vision, blurry vision, n/v/d, dysuria, fever/chills, or headaches. at bedside. reports pt has been intermittently confused, which is chronic, also with worsening dystonia, reduced po intake x 1 week. This is my first consult with this pt. 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 [employer] History of Recent Travel: No History - Admission Reason For Visit: DIZZINESS - Diagnostics X-ray: Report Reviewed CT Scan: Report Reviewed - General Mental Status: Alert and Oriented, Awake and Alert, Able to Follow Commands, Intermittently Confused (reported), Flat Affect Attention: Distractible, Mild Impairment Ability to Follow Directions: Fair Head/Neck Control: Fair - Hearing Hearing: Functional Speech Evaluation - Communication Primary Language: [place] Communication: Yes: Dysarthria Oral Expression Ability: Yes: Moderate Impairment, Severe Impairment - Speech Production Dysarthria: Yes: Hypokinetic Able to Make Needs Known: Yes: Moderately Impaired, Severely Impaired Intelligibility: Yes: Moderately Impaired, Severely Impaired - Speech Characteristics Voice Loudness: Moderately Soft/Quiet, Severely Soft/Quiet Voice Pitch: Yes: Normal Voice Phonatory-based Quality: Yes: Normal Speech Pattern: Impaired Speech Clarity: < 25% Nasal Resonance: Normal Articulation: Yes: Precise Rate of Speech: Too Slow Voice, Other Observations: Yes: Progressively Weak Voice, Disordered Intonation , Inadequate Breath Support - Language/Auditory Comprehension Follows: Yes: 1 Stage Simple Commands Observation: Able to respond to yes/no queries: Yes, Comprehends Conversational Speech: Yes - Language/Verbal Expression Able to Respond to Simple Queries: Yes: WNL Able to Communicate Wants and Needs: Yes: WNL - Swallow Evaluation/Bedside Assessment Current Nutritional Intake: NPO Oral Secretions: Yes: WFL Dentition: Yes: Adequate Facial Symmetry at Rest: Symmetrical Facial Symmetry on Retraction: Symmetrical Jaw Position: Open at Rest Against Resistance Opening: Weak Against Resistance Closing: Weak Pucker Lips: Weak Smile: Weak Lingual Movement: Symmetric Lingual Speed of Movement: Reduced Lingual Movement Strgth Against Opposition: Reduced Lingual Movement Characteristics: Normal Velopharyngeal Movement: Normal Laryngeal Movement: Labored,delay initiation Rate of Intake: WFL Bolus Size: WFL Labial Seal: WFL Chewing: Impaired (mildly labored) Oral Prep Time: Increased A-P Transit: WFL Pocketing: None Timing of Swallow: Delayed Coughing/Throat Clear: No Change in Voice: No Recommendations - Speech Evaluation, Impression/Plan Impression: Pt establishes and maintains eye contact, is o x3.slow to respond. She reports coughing while eating at times, with limited appetite and weight loss. 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 She has never had speech tx.Poor ability to physically write as well. Oropharyngeal coordination is reduced in rate, but fairly efficient. No cough with 3 oz water test for me but at risk. Pt quite thin. - Disposition [facility] ([facility], [facility] path can provide LSVT speech training for improved Speech production. Anna personal amplifer to facilitate communication with pts .) - Dysphagia Impressions/Plan Dysphagia Impressions: Mild Impairment *Silent aspiration: cannot be R/O at bedside Dysphagia Treatment Plan: Labial Exercises, Lingual Exercises, Swallowing Exercises, Laryngeal Adduction Exer, Small Bites, Chin Tuck/Down, Clear Pocket Food, Safe Rate, 1/2 tsp. at a time, Elevate HOB during feed Recommendations: Modified Barium Swallow (if cough,congestion, fever.) - Recommendations Diet Consistency: Dysphagia Whole, Other (chopped meat) Liquids: Thin Liquids, Other (if cough, nectar thick liquid) Supplement: Ensure, Magic Cup
--- NOTE | 2017-05-14 16:26 | EKG ---
Test Reason : Blood Pressure : / mmHG Vent. Rate : 103 BPM Atrial Rate : 113 BPM P-R Int : 000 ms QRS Dur : 082 ms QT Int : 332 ms P-R-T Axes : 000 024 035 degrees QTc Int : 434 ms ATRIAL FIBRILLATION WITH RAPID VENTRICULAR RESPONSE ABNORMAL ECG WHEN COMPARED WITH ECG OF 30-APR-2017 14:03, NO SIGNIFICANT CHANGE WAS FOUND Confirmed by VIKKI HERNANDEZ MD ([id number]) on 05/14/2017 4:26:19 PM Referred By: Confirmed By:VIKKI HERNANDEZ MD
--- NOTE | 2017-05-14 18:16 | CON.CARD ---
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 States she has frequent falls but this episode was different b/c she had significant spinning/dizzy sensation causing the fall. Unclear if she had brief loc. hit her head. recently established with neurologist (Dr. Pickard). had plan for eeg. states chronic poor po intake, may have been slightly worse in the past week. over the past week new dizzy/spinning sensation with ambulation. per report, patient has intermittent confusion, stable. Pt denies any chest pain, palps, sob, orthopnea, pnd, le edema, bleeding. pmh/psh: per hpi social: + tobacco, prior heavy etoh fam: adopted, hx unknown ros: per hpi; no f/c/s, nvd, cough, nasal congestion, MENJIVAR, vision changes, Ambulatory Orders Carbidopa/Levodopa [Carbidopa-Levodopa 25-100 Tab] 1 each PO TID 07/24/16 Diltiazem Cd [Cardizem Cd -] 240 mg PO DAILY 07/24/16 Multivit-Min/Iron/Folic/Lutein [Centrum Silver Women Tablet] 1 each PO DAILY Metoprolol Succinate [Toprol XL -] 50 mg PO DAILY tab.sr 10/30/16 Aa/Hydrolyzed Collagen, Whey [Lps Neutral Flavor Liquid] 15 gm PO DAILY Zinc Sulfate 1 cap PO DAILY 12/09/16 Collagenase Clostridium Hist. [Santyl] 1 applic TP DAILY #90 oint...g. 03/10/17 Clopidogrel Bisulfate [Plavix] 75 mg PO DAILY 04/30/17 Current Medications Carbidopa/Levodopa (Sinemet 25/100 -) 1 each PO TID [facility] Last Admin: 05/14/17 13:29 Dose: 1 each Clopidogrel Bisulfate (Plavix -) 75 mg PO DAILY [facility] Last Admin: 05/14/17 13:25 Dose: 75 mg Heparin Sodium (Porcine) (Heparin -) 5,000 unit SQ BID [facility] Last Admin: 05/14/17 13:24 Dose: 5,000 unit Metoprolol Succinate (Toprol Xl -) 50 mg PO DAILY [facility] Last Admin: 05/14/17 13:25 Dose: 50 mg Multivitamins/Minerals (Theragran-M) 1 each PO DAILY [facility] Zinc Sulfate (Orazinc -) 220 mg PO DAILY [facility] Vital Signs - 24 hr 05/14/17 05/14/17 05/14/17 07:12 09:03 16:42 Temperature 97.8 F 97.9 F Pulse Rate 127 H Pulse Rate [ 80 Apical] Respiratory 20 18 Rate Blood Pressure 111/75 Blood Pressure 101/61 [Right Arm] O2 Sat by Pulse 97 98 98 Oximetry (%) Intake & Output 05/12/17 05/13/17 05/14/17 05/15/17 07:59 07:59 07:59 07:59 Weight 107 lb nad, calm, cachectic no jvd irregularly, irregular nl s1s2 no mrg nd pmi cta bl poor eff + bs soft nt nd, no hsm. aaox3 no le e/c/c abd nt nd pos bs diminished dp/pt. no carotid bruits no jaundice diaphoresis CBC, BMP 05/14/17 09:00 05/14/17 09:00 Laboratory Tests 05/14/17 05/15/17 09:00 00:00 Lactic Acid 0.7 Magnesium Total Bilirubin 0.5 AST 10 L ALT < 6 L Alkaline Phosphatase 141 H Creatine Kinase 22 L Troponin I < 0.02 Albumin 2.7 L ekg: afib, 103 bpm. early r wave progression. no acute ischemic changes. cxr/head ct: no acute pathology stress 03/2017: baseline afib, no ischemic changes. inferior artifact. no ischemia/infarct. nl ef. echo 10/2016: nl lv/rv, mod mr, mild tr. 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 presyncope/frequent falls. - dizziness described as spinning sensation, ? vertigo. - cardiac enzymes neg x 1, ekg without ischemic changes and stress test last month negative for ischemia. no evidence of acs - poor po intake. receiving ivf. will check orthostatic vitals in am. speech/ swallow following, pt eval pending. - pt also with low sbp's here, monitor with resuming diltiazem. - check tsh, lytes - carotid u/s. repeat echo. afib - rate initiallyelevated, now controlled on toprol. will resume home diltiazem. - recurrent frequent falls. fall/bleeding risk thought to outweigh benefit of AC. con't plavix monotherapy instead of AC. htn - running low on toprol alone. monitor closely after resuming home diltiazem. ( will resume as 120 bid). pvd/AAA/+ tobacco - con't plavix. not on statin, will defer to outpatient md's. - smoking cessation counseling.
[2017-05-15 03:23] VITALS: BMI 17.2
[2017-05-15] MEDS: CARBIDOPA/LEVODOPA 25/100 TABLET (FP) PO SCH ×3 (06:19→21:00)
[2017-05-15 07:45] LABS: HEMATOCRIT 31.5 % (32.4-45.2); HEMOGLOBIN 10.1 GM/dL (10.7-15.3); MCH 25.9 pg (25.7-33.7); MCHC 32.2 g/dl (32.0-36.0); MEAN CELL VOLUME 80.5 fl (80-96); MEAN PLT VOLUME 7.8 fl (7.5-11.1); PLATELET COUNT 310 K/MM3 (134-434); RBC 3.92 M/mm3 (3.60-5.2); RDW 14.6 % (11.6-15.6); WHITE BLOOD COUNT 8.1 K/mm3 (4.0-10.0)
[2017-05-15 08:01] LABS: ANION GAP 5 (8-16); BLOOD UREA NITROGEN 11 mg/dL (7-18); CALCIUM 8.9 mg/dL (8.5-10.1); CHLORIDE 107 mmol/L (98-107); CO2 27 mmol/L (21-32); CREATININE 0.4 mg/dL (0.55-1.02); GLUCOSE,RANDOM 89 mg/dL (74-106); MAGNESIUM 1.8 mg/dL (1.8-2.4); PHOSPHOROUS 3.3 mg/dL (2.5-4.9); SODIUM 139 mmol/L (136-145)
--- NOTE | 2017-05-15 09:56 | CONSULT ---
Consult - text type - Consultation Consultation Note: Neurology History of Present Illness: is a 71 year old female with pmh of htn, frequent falls, parkinsons, pvd s/p left phalanges amputation who presented s/p fall at home. She reported she got up to go to bathroom, did not use walker, felt dizzy and fell on the floor hitting her head, no LOC. Her history is of Parkinson's and she is on Sinemet. She states she has been on the medication for 2.5 years. Does have visible bradykinesia, is hypophonic, finger taps slightly slowed, slight cogwheeling. This event does not seem due to Parkinson's but certainly can be compounded by it. CT head completed which showed atrophy with associated ventriculomegaly. Consistent with prior CT from July 2015. No acute changes noted. No new focal deficits appreciated. 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 [employer] History of Recent Travel: No Home Medications - Allergies Allergies/Adverse Reactions: Allergies Allergy/AdvReac Type Severity Reaction Status Date / Time aspirin Allergy Verified 05/14/17 07:17 Penicillins Allergy Verified 05/14/17 07:17 - Home Medications Home Medications: Ambulatory Orders Carbidopa/Levodopa [Carbidopa-Levodopa 25-100 Tab] 1 each PO TID 07/24/16 Diltiazem Cd [Cardizem Cd -] 240 mg PO DAILY 07/24/16 Multivit-Min/Iron/Folic/Lutein [Centrum Silver Women Tablet] 1 each PO DAILY Metoprolol Succinate [Toprol XL -] 50 mg PO DAILY tab.sr 10/30/16 Aa/Hydrolyzed Collagen, Whey [Lps Neutral Flavor Liquid] 15 gm PO DAILY Zinc Sulfate 1 cap PO DAILY 09/18/17 Collagenase Clostridium Hist. [Santyl] 1 applic TP DAILY #90 oint...g. 03/10/17 Clopidogrel Bisulfate [Plavix] 75 mg PO DAILY 04/30/17 Family Disease History - Family Disease History Family History: Unable to Obtain (patient unclear) Review of Systems Unable to obtain ROS, reason: poor historian Physical Examination Vital Signs Period Temp Pulse Resp BP Sys/Watkins Pulse Ox Last 24 Hr 97.9 F-98.7 F 80-92 18-18 101-132/61-72 97-98 Constitutional: Yes: Anxious, Thin Eyes: Yes: Conjunctiva Clear Cardiovascular: Yes: Tachycardia, Pulse Irregular. No: JVD, Gallop, Murmur Respiratory: Yes: Regular, CTA Bilaterally, Diminished. No: Rales, Rhonchi, SOB , Tachypnea Gastrointestinal: Yes: WNL, Normal Bowel Sounds, Soft. No: Distention, Tenderness Extremities: Yes: Amputation (left 2nd 3rd phalanges) Edema: No Neurological: Awake, alert, conversive, CN intact, ?facial droop, bradykinesia noted, is hypophonic, finger taps slightly slowed, slight cogwheeling, gait deferred Psychiatric: Yes: Alert CBCD WBC 8.1 K/mm3 (4.0-10.0) 05/15/17 06:30 RBC 3.92 M/mm3 (3.60-5.2) 05/15/17 06:30 Hgb 10.1 GM/dL (10.7-15.3) L 05/15/17 06:30 Hct 31.5 % (32.4-45.2) L 05/15/17 06:30 MCV 80.5 fl (80-96) 05/15/17 06:30 MCHC 32.2 g/dl (32.0-36.0) 05/15/17 06:30 RDW 14.6 % (11.6-15.6) 05/15/17 06:30 Plt Count 310 K/MM3 (134-434) 05/15/17 06:30 MPV 7.8 fl (7.5-11.1) 05/15/17 06:30 CMP Sodium 139 mmol/L (136-145) 05/15/17 06:30 Potassium 4.0 mmol/L (3.5-5.1) 05/15/17 06:30 Chloride 107 mmol/L (98-107) 05/15/17 06:30 Carbon Dioxide 27 mmol/L (21-32) 05/15/17 06:30 Anion Gap 5 (8-16) L 05/15/17 06:30 BUN 11 mg/dL (7-18) 05/15/17 06:30 Creatinine 0.4 mg/dL (0.55-1.02) L 05/15/17 06:30 Creat Clearance w eGFR > 60 (>60) 05/14/17 09:00 Calcium 8.9 mg/dL (8.5-10.1) 05/15/17 06:30 Total Bilirubin 0.5 mg/dL (0.2-1.0) 05/14/17 09:00 AST 10 U/L (15-37) L 05/14/17 09:00 ALT < 6 U/L (12-78) L 05/14/17 09:00 Alkaline Phosphatase 141 U/L (45-117) H 05/14/17 09:00 Total Protein 8.0 g/dl (6.4-8.2) 05/14/17 09:00 Albumin 2.7 g/dl (3.4-5.0) L 05/14/17 09:[address] head reviewed Echo reviewed Plan: 71 year old female with pmh of htn, frequent falls, parkinsons, pvd s/p left phalanges amputation who presented s/p fall at home. She reported she got up to go to bathroom, did not use walker, felt dizzy and fell on the floor hitting her head, no LOC. Her history is of Parkinson's and she is on Sinemet. She states she has been on the medication for 2.5 years. Does have visible bradykinesia, is hypophonic, finger taps slightly slowed, slight cogwheeling. This event does not seem due to Parkinson's but certainly can be compounded by it. CT head completed which showed atrophy with associated ventriculomegaly. Consistent with prior CT from July 2015. No acute changes noted. No new focal deficits appreciated. Cardiac/tele monitoring ongoing Can continue Sinemet at current dose, would re-evaluate medication increase as outpatient Physical therapy recommended Assistive device as tolerated Monitor orthostatics Monitor blood pressure, maintain normotensive range Maintain adequate hydration and PO intake Fall precautions
[2017-05-15] MEDS: MULTIVITAMINS THER W-MINERALS COMBO TABLET (FP) PO SCH (10:17)
[2017-05-15] MEDS: CLOPIDOGREL BISULFATE 75 MG TABLET (FP) PO SCH (10:17)
[2017-05-15] MEDS: HEPARIN NA (PORCINE) 5,000 UNITS/ML 1ML VIAL SQ SCH ×2 (10:18→20:59)
[2017-05-15] MEDS: ZINC SULFATE 220 MG CAPSULE (FP) PO SCH (10:18)
--- NOTE | 2017-05-15 10:52 | PN ---
Progress Note, Physician Chief Complaint: Pt lying in bed in no acute distress. denies chest pain, dizziness, sob, n/v/d. reports she wants to go home. - Current Medication List Current Medications: Active Medications Carbidopa/Levodopa (Sinemet 25/100 -) 1 each PO TID [facility] Last Admin: 05/15/17 06:19 Dose: Not Given Clopidogrel Bisulfate (Plavix -) 75 mg PO DAILY [facility] Last Admin: 05/15/17 10:17 Dose: 75 mg Diltiazem HCl (Cardizem Cd -) 120 mg PO BID [facility] Last Admin: 05/15/17 10:17 Dose: 120 mg Heparin Sodium (Porcine) (Heparin -) 5,000 unit SQ BID [facility] Last Admin: 05/15/17 10:18 Dose: 5,000 unit Magnesium Oxide (Mag-Ox -) 400 mg PO ONCE ONE Stop: 05/15/17 09:49 Metoprolol Succinate (Toprol Xl -) 50 mg PO DAILY [facility] Last Admin: 05/15/17 10:18 Dose: 50 mg Multivitamins/Minerals (Theragran-M) 1 each PO DAILY [facility] Last Admin: 05/15/17 10:17 Dose: 1 each Zinc Sulfate (Orazinc -) 220 mg PO DAILY [facility] Last Admin: 05/15/17 10:18 Dose: 220 mg - Objective Vital Signs: Vital Signs Temperature 97.9 F 05/15/17 06:00 Pulse Rate 92 H 05/15/17 06:00 Respiratory Rate 18 05/15/17 06:00 Blood Pressure 132/72 05/15/17 06:00 O2 Sat by Pulse Oximetry (%) 97 05/15/17 03:46 Constitutional: Yes: No Distress, Thin Cardiovascular: Yes: Pulse Irregular. No: Gallop, Murmur, Rub Respiratory: Yes: WNL, Regular, CTA Bilaterally, Diminished. No: Rales, Stridor , Tachypnea, Wheezes Gastrointestinal: Yes: WNL, Normal Bowel Sounds, Soft. No: Distention, Tenderness Genitourinary: Yes: WNL Edema: No Neurological: Yes: Alert, Confusion Psychiatric: Yes: Alert Labs: CBC, BMP 05/15/17 06:30 05/15/17 06:30 Problem List - Problems (1) Fall Code(s): W19.XXXA - UNSPECIFIED FALL, INITIAL ENCOUNTER Qualifiers: Encounter type: initial encounter Qualified Code(s): W19.XXXA - Unspecified fall, initial encounter (2) Pre-syncope Code(s): R55 - SYNCOPE AND COLLAPSE (3) Parkinson disease Code(s): G20 - PARKINSON'S DISEASE (4) Afib Code(s): I48.91 - UNSPECIFIED ATRIAL FIBRILLATION Qualifiers: Atrial fibrillation type: chronic Qualified Code(s): I48.2 - Chronic atrial fibrillation (5) HTN (hypertension) Code(s): I10 - ESSENTIAL (PRIMARY) HYPERTENSION Qualifiers: Hypertension type: essential hypertension Qualified Code(s): I10 - Essential (primary) hypertension (6) Peripheral vascular disease Code(s): I73.9 - PERIPHERAL VASCULAR DISEASE, UNSPECIFIED (7) Dehydration Code(s): E86.0 - DEHYDRATION (8) Aneurysm, abdominal aortic Code(s): I71.4 - ABDOMINAL AORTIC ANEURYSM, WITHOUT RUPTURE Qualifiers: Presence of rupture: without rupture Qualified Code(s): I71.4 - Abdominal aortic aneurysm, without rupture (9) Hypophonia Code(s): R49.8 - OTHER VOICE AND RESONANCE DISORDERS (10) Bradykinesia Code(s): R25.8 - OTHER ABNORMAL INVOLUNTARY MOVEMENTS (11) Low TSH level Code(s): R94.6 - ABNORMAL RESULTS OF THYROID FUNCTION STUDIES Assessment/Plan (1) Fall Assessment/Plan: s/p fall w/o LOC with impact on head, no acute changes neurologically head ct, chest, hip xrays neg labs wnl neuro checks repeat head ct today without acute changes PT pending Code(s): W19.XXXA - UNSPECIFIED FALL, INITIAL ENCOUNTER Qualifiers: Encounter type: initial encounter Qualified Code(s): W19.XXXA - Unspecified fall, initial encounter (2) Pre-syncope Assessment/Plan: s/p fall at home orthostatic bp pending cardiac echo without sig findings carotids with b/l moderate stenosis spoke to about doing CTA neck/brain, would not like to have this done at this time Vascular surgery consulted tele labs wnl ua neg, uc pending cardiology, neurology following Code(s): R55 - SYNCOPE AND COLLAPSE (3) Parkinson disease Assessment/Plan: unsure if dx confirmed, reports pt has a first time appointment with progressive dystonia, bradykinisia with intermittent confusion, poor po intake over the last week continue carbidopa/levodopa f/u outpt with speech eval done, pt started on dysphagia whole consider barium swallow study if signs of aspiration Neurology following Code(s): G20 - PARKINSON'S DISEASE (4) Afib Assessment/Plan: chronic, rate controlled ekg without acute changes not on AC due to frequent falls metoprolol, cardizem cardiology following Code(s): I48.91 - UNSPECIFIED ATRIAL FIBRILLATION Qualifiers: Atrial fibrillation type: chronic Qualified Code(s): I48.2 - Chronic atrial fibrillation (5) Low TSH level Assessment/Plan: tsh<0.01 free t3,t4 ordered will monitor Code(s): R94.6 - ABNORMAL RESULTS OF THYROID FUNCTION STUDIES (6) HTN (hypertension) Assessment/Plan: controlled continue metoprolol,. cardizem Code(s): I10 - ESSENTIAL (PRIMARY) HYPERTENSION Qualifiers: Hypertension type: essential hypertension Qualified Code(s): I10 - Essential (primary) hypertension (7) Peripheral vascular disease Assessment/Plan: s/p angiogram, stent lle , 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 continue plavix Code(s): I73.9 - PERIPHERAL VASCULAR DISEASE, UNSPECIFIED (8) Dehydration Assessment/Plan: secondary to poor po intake, cr improving to baseline will monitor Code(s): E86.0 - DEHYDRATION (9) Aneurysm, abdominal aortic Assessment/Plan: stable will monitor Code(s): I71.4 - ABDOMINAL AORTIC ANEURYSM, WITHOUT RUPTURE Qualifiers: Presence of rupture: without rupture Qualified Code(s): I71.4 - Abdominal aortic aneurysm, without rupture (10) Hypophonia Assessment/Plan: secondary to underlying disease process speech eval recommends LSVT speech training for improved Speech production and [employer] personal amplifer to facilitate communication Code(s): R49.8 - OTHER VOICE AND RESONANCE DISORDERS (11) Bradykinesia Assessment/Plan: as above Code(s): R25.8 - OTHER ABNORMAL INVOLUNTARY MOVEMENTS Dispo: HOME with services. would prefer pt to be home. Will plan for d/ c tomorrow
--- NOTE | 2017-05-15 11:02 | PN ---
Progress Note (short form) - Note Progress Note: s: no cp sob palps dizzy o: Vital Signs Period Temp Pulse Resp BP Sys/Watkins Pulse Ox Last 24 Hr 97.9 F-98.7 F 80-92 18-18 101-132/61-72 97-98 nad, calm, cachectic no jvd irregularly irregular nl s1s2 no mrg cta bl poor eff + bs soft nt nd, aaox3 no le e/c/c no jaundice diaphoresis Current Medications Generic Name Dose Route Start Last Admin Trade Name Freq PRN Reason Stop Dose Admin Carbidopa/Levodopa 1 each 05/14/17 14:00 05/15/17 06:19 Sinemet 25/100 - PO Not Given TID MELANY Clopidogrel Bisulfate 75 mg 05/14/17 12:45 05/15/17 10:17 Plavix - PO 75 mg DAILY MELANY Administration Diltiazem HCl 120 mg 05/15/17 10:00 05/15/17 10:17 Cardizem Cd - PO 120 mg BID MELANY Administration Heparin Sodium (Porcine) 5,000 unit 05/14/17 12:45 05/15/17 10:18 Heparin - SQ 5,000 unit BID MELANY Administration Magnesium Oxide 400 mg 05/15/17 11:15 Mag-Ox - PO 05/15/17 11:16 ONCE ONE Metoprolol Succinate 50 mg 05/14/17 21:35 05/15/17 10:18 Toprol Xl - PO 50 mg DAILY MELANY Administration Multivitamins/Minerals 1 each 05/15/17 10:00 05/15/17 10:17 Theragran-M PO 1 each DAILY MELANY Administration Zinc Sulfate 220 mg 05/15/17 10:00 05/15/17 10:18 Orazinc - PO 220 mg DAILY MELANY Administration CBC, BMP 05/15/17 06:30 05/15/17 06:30 ekg: afib, 103 bpm. early r wave progression. no acute ischemic changes. cxr/head ct: no acute pathology stress 03/2017: baseline afib, no ischemic changes. inferior artifact. no ischemia/infarct. nl ef. echo 10/2016: nl lv/rv, mod mr, mild tr. 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 presyncope/frequent falls. - dizziness described as spinning sensation, ? vertigo. - cardiac enzymes neg x 2, ekg without ischemic changes, echo w/o etiology, and stress test last month negative for ischemia. no evidence of acs - poor po intake possibly contributing afib -cont home dilt, bb - recurrent frequent falls. fall/bleeding risk thought to outweigh benefit of AC. con't plavix monotherapy instead of AC. htn - stable pvd/AAA/+ tobacco - con't plavix. not on statin, will defer to outpatient md's. - smoking cessation counseling.
[2017-05-15] MEDS ORDERED: MAGNESIUM OXIDE 400 MG TABLET (FP) PO ONE (11:15)
--- NOTE | 2017-05-15 11:26 | PN ---
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 Communication boards provided,to be used if pt can not be understood verbally. Pt is tolerating diet thus far. Monitor tolerance. REC: Speech tx upon d/c ([facility] [employer]) JESSICA Camarena ([facility] provides [employer]), homecare.
--- NOTE | 2017-05-15 11:27 | PN ---
Progress Note, Physician - Current Medication List Current Medications: Active Medications Carbidopa/Levodopa (Sinemet 25/100 -) 1 each PO TID [facility] Last Admin: 05/15/17 06:19 Dose: Not Given Clopidogrel Bisulfate (Plavix -) 75 mg PO DAILY [facility] Last Admin: 05/15/17 10:17 Dose: 75 mg Diltiazem HCl (Cardizem Cd -) 120 mg PO BID [facility] Last Admin: 05/15/17 10:17 Dose: 120 mg Heparin Sodium (Porcine) (Heparin -) 5,000 unit SQ BID [facility] Last Admin: 05/15/17 10:18 Dose: 5,000 unit Metoprolol Succinate (Toprol Xl -) 50 mg PO DAILY [facility] Last Admin: 05/15/17 10:18 Dose: 50 mg Multivitamins/Minerals (Theragran-M) 1 each PO DAILY [facility] Last Admin: 05/15/17 10:17 Dose: 1 each Zinc Sulfate (Orazinc -) 220 mg PO DAILY [facility] Last Admin: 05/15/17 10:18 Dose: 220 mg - Objective Vital Signs: Vital Signs Temperature 97.9 F 05/15/17 06:00 Pulse Rate 92 H 05/15/17 06:00 Respiratory Rate 18 05/15/17 06:00 Blood Pressure 132/72 05/15/17 06:00 O2 Sat by Pulse Oximetry (%) 97 05/15/17 03:46 Labs: CBC, BMP 05/15/17 06:30 05/15/17 06:30 Problem List - Problems (1) Fall Code(s): W19.XXXA - UNSPECIFIED FALL, INITIAL ENCOUNTER Qualifiers: Encounter type: initial encounter Qualified Code(s): W19.XXXA - Unspecified fall, initial encounter (2) Pre-syncope Code(s): R55 - SYNCOPE AND COLLAPSE (3) Parkinson disease Code(s): G20 - PARKINSON'S DISEASE (4) Afib Code(s): I48.91 - UNSPECIFIED ATRIAL FIBRILLATION Qualifiers: Atrial fibrillation type: chronic Qualified Code(s): I48.2 - Chronic atrial fibrillation (5) HTN (hypertension) Code(s): I10 - ESSENTIAL (PRIMARY) HYPERTENSION Qualifiers: Hypertension type: essential hypertension Qualified Code(s): I10 - Essential (primary) hypertension (6) Peripheral vascular disease Code(s): I73.9 - PERIPHERAL VASCULAR DISEASE, UNSPECIFIED (7) Dehydration Code(s): E86.0 - DEHYDRATION (8) Aneurysm, abdominal aortic Code(s): I71.4 - ABDOMINAL AORTIC ANEURYSM, WITHOUT RUPTURE Qualifiers: Presence of rupture: without rupture Qualified Code(s): I71.4 - Abdominal aortic aneurysm, without rupture (9) Hypophonia Code(s): R49.8 - OTHER VOICE AND RESONANCE DISORDERS (10) Bradykinesia Code(s): R25.8 - OTHER ABNORMAL INVOLUNTARY MOVEMENTS
[2017-05-15] MEDS: ACETAMINOPHEN 325 MG TABLET (FP) PO PRN (18:26)
--- NOTE | 2017-05-15 19:04 | PN ---
Progress Note (short form) - Note Progress Note: [facility] Pt seen and examined. Well known to our service. Carotid doppler images reviewed -- no areas of stenosis. No need for surgery . Medical management. Foot wounds all healed. Shaquille Wiggins DO
[2017-05-15] MEDS ORDERED: PT OWN MED DRAWER 7, Y5N ONE (20:54)
[2017-05-16] MEDS: CARBIDOPA/LEVODOPA 25/100 TABLET (FP) PO SCH ×2 (05:29→13:28)
[2017-05-16] MEDS: ACETAMINOPHEN 325 MG TABLET (FP) PO PRN (06:48)
[2017-05-16 07:42] LABS: ANION GAP 4 (8-16); BLOOD UREA NITROGEN 13 mg/dL (7-18); CALCIUM 9.2 mg/dL (8.5-10.1); CHLORIDE 105 mmol/L (98-107); CO2 28 mmol/L (21-32); CREATININE 0.5 mg/dL (0.55-1.02); GLUCOSE,RANDOM 106 mg/dL (74-106); MAGNESIUM 1.8 mg/dL (1.8-2.4); PHOSPHOROUS 3.6 mg/dL (2.5-4.9); SODIUM 137 mmol/L (136-145)
[2017-05-16 08:11] LABS: BASO % 0.4 % (0-2.0); EOS % 1.9 % (0-4.5); HEMATOCRIT 33.5 % (32.4-45.2); HEMOGLOBIN 10.7 GM/dL (10.7-15.3); LYMPH % 25.8 % (8-40); MCH 25.4 pg (25.7-33.7); MCHC 31.8 g/dl (32.0-36.0); MEAN CELL VOLUME 79.9 fl (80-96); MEAN PLT VOLUME 7.6 fl (7.5-11.1); MONO % 5.6 % (3.8-10.2); NEUT % 66.3 % (42.8-82.8); PLATELET COUNT 340 K/MM3 (134-434); RBC 4.19 M/mm3 (3.60-5.2); RDW 14.4 % (11.6-15.6); WHITE BLOOD COUNT 9.3 K/mm3 (4.0-10.0)
[2017-05-16] MEDS: CLOPIDOGREL BISULFATE 75 MG TABLET (FP) PO SCH (09:36)
[2017-05-16] MEDS: HEPARIN NA (PORCINE) 5,000 UNITS/ML 1ML VIAL SQ SCH (09:36)
[2017-05-16] MEDS: ZINC SULFATE 220 MG CAPSULE (FP) PO SCH (09:36)
[2017-05-16] MEDS: MULTIVITAMINS THER W-MINERALS COMBO TABLET (FP) PO SCH (09:36)
--- NOTE | 2017-05-16 09:47 | DS ---
Physical Examination Vital Signs: Vital Signs Temperature 97.5 F L 05/16/17 06:51 Pulse Rate 97 H 05/16/17 06:51 Respiratory Rate 20 05/16/17 06:51 Blood Pressure 126/60 05/16/17 06:51 O2 Sat by Pulse Oximetry (%) 93 L 05/15/17 19:00 Constitutional: Yes: No Distress, Thin Cardiovascular: Yes: Pulse Irregular. No: Gallop, Murmur, Rub Respiratory: Yes: WNL, Regular, CTA Bilaterally. No: Rales, Rhonchi, Stridor, Tachypnea Gastrointestinal: Yes: WNL, Normal Bowel Sounds, Soft. No: Distention, Tenderness Edema: No Neurological: Yes: Alert, Oriented Psychiatric: Yes: Alert, Oriented Labs: CBC, BMP 05/16/17 06:50 05/16/17 06:50 Discharge Summary Reason For Visit: DIZZINESS Current Active Problems Afib (Acute) Bradykinesia (Acute) Dehydration (Acute) Dizziness (Acute) Fall (Acute) Hypophonia (Acute) Low TSH level (Acute) Pre-syncope (Acute) Hospital Course: is a pleasant 71 year old female who was admitted s/p fall at home, presyncope. Head CTs/xray negative. b/l carotids with mod stenosis, vascular surgery consulted, no further intervention needed. reports pt has been eating poorly, worsening writing coordination, and speech. Neurology was consulted and advised to follow up outpt for further management of parkinsons. Pt worked with physical therapy and spoke to regarding option for SNF.Pt and prefers to be home, home services were set up by . Tsh low , t4 elevated, willl have pt follow up with relationship associate. Condition: Fair - Instructions Diet, Activity, Other Instructions: Resume prev diet, ambulate with walker and assistance please follow up with PCP, Neurologist, Assistant Baseball Coach in 1-2 weeks Referrals: Manohar Ramirez MD [Primary Care Provider] - 1 Week (Primary care provider) Zac Pickard MD [Staff Physician] - 2 Weeks (neurologist ) Anusha Mi MD [Staff Physician] - 2 Weeks (relationship associate ) Disposition: VNS/HOME HEALTH CARE - Home Medications Comprehensive Discharge Medication List: Ambulatory Orders Carbidopa/Levodopa [Carbidopa-Levodopa 25-100 Tab] 1 each PO TID 07/24/16 Diltiazem Cd [Cardizem Cd -] 240 mg PO DAILY 07/24/16 Multivit-Min/Iron/Folic/Lutein [Centrum Silver Women Tablet] 1 each PO DAILY Metoprolol Succinate [Toprol XL -] 50 mg PO DAILY tab.sr 10/30/16 Aa/Hydrolyzed Collagen, Whey [Lps Neutral Flavor Liquid] 15 gm PO DAILY Zinc Sulfate 1 cap PO DAILY 12/09/16 Collagenase Clostridium Hist. [Santyl] 1 applic TP DAILY #90 oint...g. 03/10/17 Clopidogrel Bisulfate [Plavix] 75 mg PO DAILY 04/30/17
[2017-05-16 09:49] VITALS: TEMP 98.4
--- NOTE | 2017-05-16 09:55 | PN ---
Progress Note (short form) - Note Progress Note: Neurology History of Present Illness: is a 71 year old female with pmh of htn, frequent falls, parkinsons, pvd s/p left phalanges amputation who presented s/p fall at home. She reported she got up to go to bathroom, did not use walker, felt dizzy and fell on the floor hitting her head, no LOC. Her history is of Parkinson's and she is on Sinemet. She states she has been on the medication for 2.5 years. Does have visible bradykinesia, is hypophonic, finger taps slightly slowed, slight cogwheeling. This event does not seem due to Parkinson's but certainly can be compounded by it. CT head completed which showed atrophy with associated ventriculomegaly. Consistent with prior CT from July 2015. No acute changes noted. No new focal deficits appreciated. Carotid Doppler completed and reviewed, CTA considered, vascular consulted, note reviewed, did not recommend further imaging or intervention. She reports being well this AM and remains at baseline. No new deficits or events. Plan is for discharge today. Discussed with primary. Active Medications Acetaminophen (Tylenol -) 650 mg PO Q6H PRN PRN Reason: PAIN LEVEL 4 - 6 Last Admin: 05/16/17 06:48 Dose: 650 mg Carbidopa/Levodopa (Sinemet 25/100 -) 1 each PO TID [facility] Last Admin: 05/16/17 05:29 Dose: 1 each Clopidogrel Bisulfate (Plavix -) 75 mg PO DAILY [facility] Last Admin: 05/16/17 09:36 Dose: 75 mg Diltiazem HCl (Cardizem Cd -) 120 mg PO BID [facility] Last Admin: 05/16/17 09:36 Dose: 120 mg Heparin Sodium (Porcine) (Heparin -) 5,000 unit SQ BID [facility] Last Admin: 05/16/17 09:36 Dose: 5,000 unit Metoprolol Succinate (Toprol Xl -) 50 mg PO DAILY [facility] Last Admin: 05/16/17 09:36 Dose: 50 mg Multivitamins/Minerals (Theragran-M) 1 each PO DAILY [facility] Last Admin: 05/16/17 09:36 Dose: 1 each Zinc Sulfate (Orazinc -) 220 mg PO DAILY [facility] Last Admin: 05/16/17 09:36 Dose: 220 mg Physical Examination Vital Signs Temperature 98.4 F 05/16/17 09:48 Pulse Rate 98 H 05/16/17 09:48 Respiratory Rate 18 05/16/17 09:48 Blood Pressure 114/66 05/16/17 09:48 O2 Sat by Pulse Oximetry (%) 93 L 05/15/17 19:00 Constitutional: Yes: Anxious, Thin Eyes: Yes: Conjunctiva Clear Cardiovascular: Yes: Tachycardia, Pulse Irregular. No: JVD, Gallop, Murmur Respiratory: Yes: Regular, CTA Bilaterally, Diminished. No: Rales, Rhonchi, SOB , Tachypnea Gastrointestinal: Yes: WNL, Normal Bowel Sounds, Soft. No: Distention, Tenderness Extremities: Yes: Amputation (left 2nd 3rd phalanges) Edema: No Neurological: Awake, alert, conversive, CN intact, ?facial droop, bradykinesia noted, is hypophonic, finger taps slightly slowed, slight cogwheeling, gait deferred Psychiatric: Yes: Alert CBCD WBC 9.3 K/mm3 (4.0-10.0) 05/16/17 06:50 RBC 4.19 M/mm3 (3.60-5.2) 05/16/17 06:50 Hgb 10.7 GM/dL (10.7-15.3) 05/16/17 06:50 Hct 33.5 % (32.4-45.2) 05/16/17 06:50 MCV 79.9 fl (80-96) L 05/16/17 06:50 MCHC 31.8 g/dl (32.0-36.0) L 05/16/17 06:50 RDW 14.4 % (11.6-15.6) 05/16/17 06:50 Plt Count 340 K/MM3 (134-434) 05/16/17 06:50 MPV 7.6 fl (7.5-11.1) 05/16/17 06:50 CMP Sodium 137 mmol/L (136-145) 05/16/17 06:50 Potassium 4.0 mmol/L (3.5-5.1) 05/16/17 06:50 Chloride 105 mmol/L (98-107) 05/16/17 06:50 Carbon Dioxide 28 mmol/L (21-32) 05/16/17 06:50 Anion Gap 4 (8-16) L 05/16/17 06:50 BUN 13 mg/dL (7-18) 05/16/17 06:50 Creatinine 0.5 mg/dL (0.55-1.02) L 05/16/17 06:50 Creat Clearance w eGFR > 60 (>60) 05/14/17 09:00 Calcium 9.2 mg/dL (8.5-10.1) 05/16/17 06:50 Total Bilirubin 0.5 mg/dL (0.2-1.0) 05/14/17 09:00 AST 10 U/L (15-37) L 05/14/17 09:00 ALT < 6 U/L (12-78) L 05/14/17 09:00 Alkaline Phosphatase 141 U/L (45-117) H 05/14/17 09:00 Total Protein 8.0 g/dl (6.4-8.2) 05/14/17 09:00 Albumin 2.7 g/dl (3.4-5.0) L 05/14/17 09:[address] head reviewed Echo carotid doppler reviewed Plan: 71 year old female with pmh of htn, frequent falls, parkinsons, pvd s/p left phalanges amputation who presented s/p fall at home. She reported she got up to go to bathroom, did not use walker, felt dizzy and fell on the floor hitting her head, no LOC. Her history is of Parkinson's and she is on Sinemet. She states she has been on the medication for 2.5 years. Does have visible bradykinesia, is hypophonic, finger taps slightly slowed, slight cogwheeling. This event does not seem due to Parkinson's but certainly can be compounded by it. Carotid doppler reviewed Vascular note reviewed No further intervention CT head completed which showed atrophy with associated ventriculomegaly. Consistent with prior CT from July 2015. No acute changes noted. No new focal deficits appreciated. Cardiac/tele monitoring Can continue Sinemet at current dose, would re-evaluate medication increase as outpatient Physical therapy recommended Assistive device as tolerated Monitor orthostatics Monitor blood pressure, maintain normotensive range Maintain adequate hydration and PO intake Fall precautions For discharge today
--- NOTE | 2017-05-16 11:27 | PN ---
Progress Note (short form) - Note Progress Note: s: no cp sob palps dizzy o: Vital Signs Period Temp Pulse Resp BP Sys/Watkins Pulse Ox Last 24 Hr 97.4 F-98.5 F 80-102 16-20 109-126/51-66 93 nad, calm, cachectic no jvd irregularly irregular nl s1s2 no mrg cta bl poor eff + bs soft nt nd, aaox3 no le e/c/c no jaundice diaphoresis Current Medications Generic Name Dose Route Start Last Admin Trade Name Freq PRN Reason Stop Dose Admin Acetaminophen 650 mg 05/15/17 18:09 05/16/17 06:48 Tylenol - PO 650 mg Q6H PRN Administration PAIN LEVEL 4 - 6 Carbidopa/Levodopa 1 each 05/14/17 14:00 05/16/17 05:29 Sinemet 25/100 - PO 1 each TID MELANY Administration Clopidogrel Bisulfate 75 mg 05/14/17 12:45 05/16/17 09:36 Plavix - PO 75 mg DAILY MELANY Administration Diltiazem HCl 120 mg 05/15/17 10:00 05/16/17 09:36 Cardizem Cd - PO 120 mg BID MELANY Administration Heparin Sodium (Porcine) 5,000 unit 05/14/17 12:45 05/16/17 09:36 Heparin - SQ 5,000 unit BID MELANY Administration Metoprolol Succinate 50 mg 05/14/17 21:35 05/16/17 09:36 Toprol Xl - PO 50 mg DAILY MELANY Administration Multivitamins/Minerals 1 each 05/15/17 10:00 05/16/17 09:36 Theragran-M PO 1 each DAILY MELANY Administration Zinc Sulfate 220 mg 05/15/17 10:00 05/16/17 09:36 Orazinc - PO 220 mg DAILY MELANY Administration CBC, BMP 05/16/17 06:50 05/16/17 06:50 ekg: afib, 103 bpm. early r wave progression. no acute ischemic changes. cxr/head ct: no acute pathology stress 03/2017: baseline afib, no ischemic changes. inferior artifact. no ischemia/infarct. nl ef. echo 10/2016: nl lv/rv, mod mr, mild tr. echo 04/2017: nl lv/rv, mild lima, mod mr, mild-mod tr, rvsp 30-40 tele: afib, rate ok a/p: 71 year old smoker with pmh of htn, frequent falls/dystonia, pvd 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 and chronic LLE wound, AAA (4.7 cm), prior heavy etoh use, prior cnc grinder CA s/p chemo/xrt, anxiety who presents s/p recurrent fall/presyncope. presyncope/frequent falls. - dizziness described as spinning sensation, ? vertigo. - cardiac enzymes neg x 2, ekg without ischemic changes, echo w/o etiology, and stress test last month negative for ischemia. no evidence of acs - poor po intake possibly contributing afib -cont home dilt, bb - recurrent frequent falls. fall/bleeding risk thought to outweigh benefit of AC. con't plavix monotherapy instead of AC. htn - stable pvd/AAA/+ tobacco - con't plavix. not on statin, will defer to outpatient md's. - smoking cessation counseling. cardiac dickey stable for dc
[2017-05-16 14:21] VITALS: BP 112/70; PULSE 96
== END 2017-05-16 14:27 | disposition home health service (06) ==
LOC: JER 07:10 → UNDOADMOB 11:15 → JERBED 11:15 → INTOOBSV 11:15 → JERBED 12:47 → J4S 22:42
PROVIDERS: ADMIT Internal Medicine; ATTEND Nurse Practitioner Family
PROC: 3E033GC Introduction of Other Therapeutic Substance into Peripheral Vein, Percutaneous Approach (ICD-10-PCS; principal; 2017-05-14)
PROC: 3E0337Z Introduction of Electrolytic and Water Balance Substance into Peripheral Vein, Percutaneous Approach (ICD-10-PCS; 2017-05-14)
PROC: 3E013GC Introduction of Other Therapeutic Substance into Subcutaneous Tissue, Percutaneous Approach (ICD-10-PCS; 2017-05-14)
DX: R55 Syncope and collapse (principal); R42 Dizziness and giddiness; S09.90XA Unspecified injury of head, initial encounter; I48.91 Unspecified atrial fibrillation; I10 Essential (primary) hypertension; I73.9 Peripheral vascular disease, unspecified; I71.4 Abdominal aortic aneurysm, without rupture; G20 Parkinson's disease; R26.2 Difficulty in walking, not elsewhere classified; D64.9 Anemia, unspecified; E86.0 Dehydration; R49.8 Other voice and resonance disorders; R25.8 Other abnormal involuntary movements; G24.9 Dystonia, unspecified; R94.6 Abnormal results of thyroid function studies; Z95.820 Peripheral vascular angioplasty status with implants and grafts; Z86.59 Personal history of other mental and behavioral disorders; Z89.022 Acquired absence of left finger(s); Z99.89 Dependence on other enabling machines and devices; Z88.6 Allergy status to analgesic agent; Z87.891 Personal history of nicotine dependence; Z91.81 History of falling; W18.39XA Other fall on same level, initial encounter; Y93.89 Activity, other specified; Y92.002 Bathroom of unspecified non-institutional (private) residence as the place of occurrence of the external cause
CPT/HCPCS: 36415; 70450-TC; 71045-TC-FY; 73523-TC-FY; 80048; 80053; 81003; 81015; 82550; 83605; 83735; 84100; 84439; 84443; 84481; 84484; 85025; 85027; 93005; 93010; 93306-TC; 93880-TC; 96361; 96372; 96374; 97116-GP; 97161-GP; 99284-25; G0378; J1644

== ENCOUNTER 2017-06-26 12:30 | Emergency (ER) | payer MEDICARE, OTHER ==
[2017-06-26 12:37] VITALS: BP 131/74; PULSE 94; TEMP 97; BMI 17.2
--- NOTE | 2017-06-26 13:22 | PDOC ---
History of Present Illness - General Chief Complaint: Injury Stated Complaint: FALL/HEAD INJURY Time Seen by Provider: 06/26/17 12:46 History Source: Patient, Spouse, Old Records Exam Limitations: No Limitations - History of Present Illness Initial Comments: 06/26/17 13:17 This is a 72-year-old woman past medical history of hypertension, Parkinson's, right popliteal stents who presents emergency Department with lacerations were head status post trip and fall. Patient states she walks with a walker at home and while walking and attempted to sit down she tripped over something on the floor causing her to fall to the ground striking the left parietal area on glass table. Patient states the table did not break. The patient's visiting nurse was with the patient at the time and denies any loss of consciousness. Patient denies feeling dizzy, lightheaded, passing out prior to fall. Patient does have full recollection of events immediately prior to during and after the fall. Patient states she does fall occasionally last time was 06/22. Patient states he been multiple months since her last fall. Past History - Past Medical History Allergies/Adverse Reactions: Allergies Allergy/AdvReac Type Severity Reaction Status Date / Time aspirin Allergy Verified 06/26/17 12:37 Penicillins Allergy Verified 06/26/17 12:37 Home Medications: Ambulatory Orders Carbidopa/Levodopa [Carbidopa-Levodopa 25-100 Tab] 1 each PO TID 07/24/16 Multivit-Min/Iron/Folic/Lutein [Centrum Silver Women Tablet] 1 each PO DAILY Metoprolol Succinate [Toprol XL -] 50 mg PO DAILY tab.sr 10/30/16 Aa/Hydrolyzed Collagen, Whey [Lps Neutral Flavor Liquid] 15 gm PO DAILY Zinc Sulfate 1 cap PO DAILY 12/09/16 Collagenase Clostridium Hist. [Santyl] 1 applic TP DAILY #90 oint...g. 03/10/17 Clopidogrel Bisulfate [Plavix] 75 mg PO DAILY 04/30/17 Acetaminophen [Tylenol .Regular Strength -] 650 mg PO Q6H PRN tablet 05/16/17 Diltiazem Cd [Cardizem Cd -] 120 mg PO BID 30 Days #60 cap.cd.24h 05/16/17 Anemia: Yes Asthma: No Cancer: No Cardiac Disorders: Yes CVA: No COPD: No CHF: No Dementia: No Diabetes: No (pt denies) GI Disorders: No Disorders: No HTN: Yes Hypercholesterolemia: No Liver Disease: No Seizures: No Thyroid Disease: No - Surgical History Abdominal Surgery: No Appendectomy: No Cardiac Surgery: No Cholecystectomy: No Lung Surgery: No Neurologic Surgery: No Orthopedic Surgery: No - Immunization History Immunization Up to Date: Yes - Suicide/Smoking/Psychosocial Hx Smoking History: Never smoked Have you smoked in the past 12 months: No Number of Cigarettes Smoked Daily: 5 If you are a former smoker, when did you quit?: August 2016 Information on smoking cessation initiated: No 'Breaking Loose' booklet given: 08/10/16 Hx Alcohol Use: No Drug/Substance Use Hx: No Substance Use Type: None Trauma Specific PMHX - Complaint Specific PMHX Back Injury: No Neck Injury: No Review of Systems - Review of Systems Able to Perform ROS?: Yes Is the patient limited Yi proficient: No Constitutional: No: Symptoms Reported HEENTM: No: Symptoms Reported Respiratory: No: Symptoms reported Cardiac (ROS): No: Symptoms Reported ABD/GI: No: Symptoms Reported : No: Symptoms Reported Musculoskeletal: No: Symptoms Reported Integumentary: Yes: See HPI Neurological: Yes: See HPI Endocrine: No: Symptoms Reported Hematologic/Lymphatic: No: Symptoms Reported *Physical Exam - Vital Signs Last Vital Signs Temp Pulse Resp BP Pulse Ox 97 F L 94 H 18 131/74 99 06/26/17 12:32 06/26/17 12:32 06/26/17 12:32 06/26/17 12:32 06/26/17 12:32 - Physical Exam General Appearance: Yes: Appropriately Dressed. No: Apparent Distress HEENT: positive: Normal ENT Inspection Neck: positive: Trachea midline, Supple Respiratory/Chest: positive: Lungs Clear, Normal Breath Sounds. negative: Respiratory Distress, Accessory Muscle Use Cardiovascular: positive: Regular Rhythm, Regular Rate, S1, S2. negative: Edema , Murmur Gastrointestinal/Abdominal: positive: Normal Bowel Sounds, Soft. negative: Tender Musculoskeletal: positive: Normal Inspection. negative: CVA Tenderness Extremity: positive: Normal Capillary Refill, Normal Inspection, Normal Range of Motion Integumentary: positive: Other (4 cm superficial linear laceration to left mid parietal area) Neurologic: positive: compensation adjuster II-XII NML intact, Fully Oriented, Alert, Normal Mood/ Affect, Normal Response, Motor Strength 5/5, Finger to Nose, Other (Gait testing deferred as patient uses walker and related and doesn't have her walker with her. ). negative: Numbness, Sensory Deficit Procedures - Consent Consent obtained: Verbal, From Patient - Laceration/Wound Repair Left Lateral Parietal Wound Length: 2.6 to 5.0 cm Wound Explored: clean Wound's Depth, Shape: superficial, linear Irrigated w/ Saline: Yes Betadine Prep: Yes Anesthesia: 1% Lidocaine Amount of Anesthetic (ccs): 2 Wound Debrided: minimal Wound Repaired With: Virgilio Number of Sutures: 3 Sterile Dressing Applied: No ED Treatment Course - RADIOLOGY Radiology Studies Ordered: Category Date Time Status HEAD CT WITHOUT CONTRAST [CT] Stat CT Scan 06/26/17 12:53 Ordered Medical Decision Making - Medical Decision Making 06/26/17 13:19 A/P: 72-year-old woman with laceration to left parietal area status post trip and fall 4 cm superficial linear laceration to left mid parietal area Galea intact Cranial nerves II through XII grossly intact. 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 No hemotympanum present No septal hematomas present CT of the head without contrast Laceration repair- see procedure note 06/26/17 14:06 [address] as read by Dr. Riley: No definite interval changes identified in comparison to a prior CT exam of 05/15/2012. Mild to moderate ventricular dilatation is noted probably due to central atrophy. Correlate clinically in regards with possibilities communicating hydrocephalus/normal pressure hydrocephalus discharged home *DC/Admit/Observation/Transfer Diagnosis at time of Disposition: Laceration Fall Qualifiers: Encounter type: initial encounter Qualified Code(s): W19.XXXA - Unspecified fall, initial encounter - Discharge Dispostion Disposition: HOME Condition at time of disposition: Stable Admit: No - Referrals Referrals: Manohar Ramirez MD [Primary Care Provider] - - Patient Instructions Additional Instructions: Rest, no exercise or gym until virgilio are removed May use ice packs tonight as needed for swelling and pain Put a towel over pillow/old pillowcase to avoid damage from bacitracin and bleeding to linens until virgilio removed Use antibiotic cream/ointment once in the morning once at night until virgilio are removed May use Tylenol or Motrin for pain relief Return to emergency department for worsening pain, swelling, bleeding, or evidence of serious head injury Staple removal in 5-7 days - Post Discharge Activity
[2017-06-26] MEDS ORDERED: ACETAMINOPHEN 325 MG TABLET (FP) ONE (14:04)
[2017-06-26] MEDS ORDERED: ACETAMINOPHEN 325 MG TABLET (FP) PO ONE (14:05)
== END 2017-06-26 14:11 | disposition home or self-care (01) ==
LOC: JER 12:30
PROC: 0HQ0XZZ Repair Scalp Skin, External Approach (ICD-10-PCS; principal; 2017-06-26)
DX: S01.01XA Laceration without foreign body of scalp, initial encounter (principal); W01.190A Fall on same level from slipping, tripping and stumbling with subsequent striking against furniture, initial encounter; Y93.01 Activity, walking, marching and hiking; Y92.038 Other place in apartment as the place of occurrence of the external cause; Y99.8 Other external cause status; I10 Essential (primary) hypertension; G20 Parkinson's disease; Z95.828 Presence of other vascular implants and grafts; R26.89 Other abnormalities of gait and mobility; Z99.89 Dependence on other enabling machines and devices
CPT/HCPCS: 70450-TC; 99281-25

== ENCOUNTER 2017-06-28 10:10 | Observation (INO) | payer OTHER ==
--- NOTE | 2017-06-28 10:29 | PDOC ---
Attending Attestation - Resident Resident Name: Alonzo Silva - HPI HPI: 06/28/17 12:33 Pt presents to the ED complaining of a one day history of constant chest pain that started today. Pain is accompanied by shortness of breath. Denies fever, nausea or vomiting. Denies prior history of similar pain. - Physicial Exam PE: 06/28/17 12:36 Agree with resident's exam. Patient is in no acute distress. Lungs are clear. Heart has regular rate and rhythm with no murmurs. - Medical Decision Making 06/28/17 12:36 Pt presents to the ED complaining of chest pain. Mutliple risk factors for cardiac disease--HEART Score is 5 without troponins. Will admit to medicine for rule out ACS. Patient is allergic to asprin and is normotensive--will treat pain with morphine. Will check labs and cxr to rule out pulmonary causes of her chest pain, such as pneumonia.
--- NOTE | 2017-06-28 10:53 | PDOC ---
History of Present Illness - General Chief Complaint: Chest Pain Stated Complaint: DIFF. BREATHING/CHEST PAIN Time Seen by Provider: 06/28/17 10:27 - History of Present Illness Initial Comments: 06/28/17 10:50 72 yo F with h/o HTN, R sided popliteal stents, A-fib ( on coumadin), L toe amputation, who p/w chest pain. Pt. reports acute onset diffuse, sharp, stable, and pleuritic chest pain worse with deep inhalation beginning this AM. Denies SOB, wheezing, coughing. No identifiable triggers or alleviators. Pain is non exertional, but pt. reports Orozco. No home O2 use or increased duoneb use.Denies F /C, N/V, CP, orthopnea., cough, hemoptysis, SOB, abdominal pain, diarrhea, constipation, urinary complaints, weakness, lightheadedness, leg pain/swelling, sensory changes. Tobacco cessation 09/07 following 50 yr ppd history. Denies h/ o CAD/CO, stent placement, CABG, or abnormal stress testing ( 2-3 months ago). Denies h/o PE/DVT, malignancy, recent surgery within 4-6 weeks, prolonged immobilization, or travels. Recent head trauma ( 06/26/17) with laceration repair. No general anasthesisa required. Pt. is anticoagulated. PMD. Dr. Manohar Ramirez Past History - Past Medical History Allergies/Adverse Reactions: Allergies Allergy/AdvReac Type Severity Reaction Status Date / Time aspirin Allergy Verified 06/28/17 10:14 Penicillins Allergy Verified 06/28/17 10:14 Home Medications: Ambulatory Orders Carbidopa/Levodopa [Carbidopa-Levodopa 25-100 Tab] 1 each PO TID 07/24/16 Multivit-Min/Iron/Folic/Lutein [Centrum Silver Women Tablet] 1 each PO DAILY Metoprolol Succinate [Toprol XL -] 50 mg PO DAILY tab.sr 10/30/16 Aa/Hydrolyzed Collagen, Whey [Lps Neutral Flavor Liquid] 15 gm PO DAILY Zinc Sulfate 1 cap PO DAILY 12/09/16 Collagenase Clostridium Hist. [Santyl] 1 applic TP DAILY #90 oint...g. 03/10/17 Clopidogrel Bisulfate [Plavix] 75 mg PO DAILY 04/30/17 Acetaminophen [Tylenol .Regular Strength -] 650 mg PO Q6H PRN tablet 05/16/17 Diltiazem Cd [Cardizem Cd -] 120 mg PO BID 30 Days #60 cap.cd.24h 05/16/17 Anemia: Yes Asthma: No Cancer: No Cardiac Disorders: Yes CVA: No COPD: No CHF: No Dementia: No Diabetes: No (pt denies) GI Disorders: No Disorders: No HTN: Yes Hypercholesterolemia: No Liver Disease: No Seizures: No Thyroid Disease: No - Surgical History Abdominal Surgery: No Appendectomy: No Cardiac Surgery: No Cholecystectomy: No Lung Surgery: No Neurologic Surgery: No Orthopedic Surgery: No - Immunization History Immunization Up to Date: Yes - Suicide/Smoking/Psychosocial Hx Smoking History: Former smoker Have you smoked in the past 12 months: No Number of Cigarettes Smoked Daily: 5 If you are a former smoker, when did you quit?: August 2016 Information on smoking cessation initiated: No 'Breaking Loose' booklet given: 08/10/16 Hx Alcohol Use: No Drug/Substance Use Hx: No Substance Use Type: None Review of Systems - Review of Systems Comments:: 06/28/17 10:51 GENERAL/CONSTITUTIONAL: No fever or chills. No weakness. HEAD, EYES, EARS, NOSE AND THROAT: No change in vision. No ear pain or discharge. No sore throat. CARDIOVASCULAR: +chest pain and shortness of breath RESPIRATORY: No cough, wheezing, or hemoptysis. GASTROINTESTINAL: No nausea, vomiting, diarrhea or constipation. GENITOURINARY: No dysuria, frequency, or change in urination. MUSCULOSKELETAL: No joint or muscle swelling or pain. No neck or back pain. SKIN: No rash NEUROLOGIC: No headache, vertigo, loss of consciousness, or change in strength/ sensation. ENDOCRINE: No increased thirst. No abnormal weight change HEMATOLOGIC/LYMPHATIC: No anemia, easy bleeding, or history of blood clots. ALLERGIC/IMMUNOLOGIC: No hives or skin allergy. *Physical Exam - Vital Signs Last Vital Signs Temp Pulse Resp BP Pulse Ox 98.5 F 90 20 120/73 97 06/28/17 10:14 06/28/17 10:14 06/28/17 10:14 06/28/17 10:14 06/28/17 10:14 - Physical Exam Comments: 06/28/17 10:51 GENERAL: Awake, alert, and fully oriented, in no acute distress HEAD: No signs of trauma, normocephalic, atraumatic EYES: PERRLA, EOMI, sclera anicteric, conjunctiva clear ENT: Hearing grossly normal, nares patent, oropharynx clear without exudates. Moist mucosa NECK: Normal ROM, supple, no lymphadenopathy, JVD, or masses LUNGS: Breathing is labored. No distress, speaks full sentences, clear to auscultation bilaterally HEART: Regular rate and rhythm, normal S1 and S2, no murmurs, rubs or gallops, peripheral pulses normal and equal bilaterally. EXTREMITIES : Normal inspection, Normal range of motion, no edema. No clubbing or cyanosis. SKIN: Warm, Dry, normal turgor, no rashes or lesions noted Heart Score/ECG Review - History History: Slightly suspicious - Electrocardiogram EKG: Non specific repolarization disturbance - Age Age: >/= 65 - Risk Factors Risk Factors Heart Score: Yes Hx Hypercholesterolemia, Yes Hx Hypertension, Yes Hx Diabetes, Yes Smoking History, Yes Positive family hx of cardiac disease Based on the list above the patient has:: >/=3 risk factors or Hx atherosclerotic disease - Troponin Troponin: </= normal limit - Score Heart Score - Total: 5 ED Treatment Course - LABORATORY CBC & Chemistry Diagram: 06/28/17 10:59 06/28/17 10:59 Medical Decision Making - Medical Decision Making 06/28/17 11:25 72 yo F with h/o HTN, R sided popliteal stents, A-fib ( on coumadin), L toe amputation, who p/w acute onset diffuse, sharp, stable, and pleuritic chest pain worse with deep inhalation beginning this AM. Denies SOB, wheezing, coughing asx. w/ Orozco. Denies F/C, N/V, CP, orthopnea., cough, hemoptysis, SOB, abdominal pain, diarrhea, constipation, urinary complaints, weakness, lightheadedness,leg pain/swelling, sensory changes. Denies h/o CAD/CO, stent placement, CABG, or abnormal stress testing ( 2-3 months ago). HDS, 97 % O2 RA. Physical exam with labored breathing. Will evaluate pt. for chest pain causes. ACS/CO r/o, PNA, COPD exacerbation. Patient with hypercoagubale state, and h/o A fib. Will consider PE. Low risk Weils criteria for PE, but PERC positive. ED Course: CBC, CMP, Cardiac Pr EKG, CXR UA Duonebs 06/28/17 11:26 06/28/17 11:53 CBC: Unreamrkable 06/28/17 11:53 EKG: A-fib. Normal [place]. No obvious HEMANTH. 06/28/17 12:11 CXR: Unremarkable 06/28/17 12:11 Elevated heart score: 5 w/ 13 % risk MACE. 06/28/17 12:55 CMP: Unremarkable 06/28/17 13:32 Marizol sage called lab. Trop still pending. corrections identification technician forgot to run cardiac pr. 06/28/17 14:06 Trop: Neg 06/28/17 14:22 Pt. admitted to tele obs. Dr. metz. *DC/Admit/Observation/Transfer Diagnosis at time of Disposition: Chest pain at rest, SOB (shortness of breath) - Discharge Dispostion Admit: Yes - Referrals Referrals: Manohar Ramirez MD [Primary Care Provider] - - Patient Instructions - Post Discharge Activity
[2017-06-28 11:26] LABS: BASO % 0.7 % (0-2.0); EOS % 0.9 % (0-4.5); HEMATOCRIT 33.2 % (32.4-45.2); HEMOGLOBIN 10.8 GM/dL (10.7-15.3); MCHC 32.4 g/dl (32.0-36.0); MEAN CELL VOLUME 83.4 fl (80-96); MEAN PLT VOLUME 7.9 fl (7.5-11.1); MONO % 9.7 % (3.8-10.2); NEUT % 75.7 % (42.8-82.8); PLATELET COUNT 199 K/MM3 (134-434); RBC 3.98 M/mm3 (3.60-5.2); RDW 16.9 % (11.6-15.6); WHITE BLOOD COUNT 9.5 K/mm3 (4.0-10.0)
[2017-06-28] MEDS: ALBUTEROL SO4 2.5/IPRATROPIUM 0.5 INH SOL 3 ML VIAL.NEB. NEB SCH ×4 (11:30→12:25)
--- NOTE | 2017-06-28 11:37 | EKG ---
Test Reason : Blood Pressure : / mmHG Vent. Rate : 100 BPM Atrial Rate : 416 BPM P-R Int : 000 ms QRS Dur : 076 ms QT Int : 356 ms P-R-T Axes : 000 020 031 degrees QTc Int : 459 ms POOR DATA QUALITY, INTERPRETATION MAY BE ADVERSELY AFFECTED ATRIAL FIBRILLATION NONSPECIFIC ST AND T WAVE ABNORMALITY ABNORMAL ECG WHEN COMPARED WITH ECG OF 14-MAY-2017 08:31, NON-SPECIFIC CHANGE IN ST SEGMENT IN INFERIOR LEADS Confirmed by LASHAE HERNANDEZ, BROOKLYN ([id number]) on 06/28/2017 11:37:09 AM Referred By: Confirmed By:BROOKLYN BHARDWAJ MD
[2017-06-28] MEDS ORDERED: ALBUTEROL SO4 2.5/IPRATROPIUM 0.5 INH SOL 3 ML VIAL.NEB. NEB ONE (11:40)
[2017-06-28] MEDS ORDERED: morphine CARPU-JECT 2 MG/1 ML DISP.SYRIN IVPUSH ONE (11:56)
[2017-06-28 12:00] LABS: INR 1.28 (0.82-1.09); PROTHROMBIN TIME (PATIENT) 14.5 SEC (9.98-11.88)
[2017-06-28 12:15] LABS: ALBUMIN 2.9 g/dl (3.4-5.0); ALK PHOS 155 U/L (45-117); ANION GAP 7 (8-16); BILIRUBIN,TOTAL 0.7 mg/dL (0.2-1.0); BLOOD UREA NITROGEN 12 mg/dL (7-18); CALCIUM 9.1 mg/dL (8.5-10.1); CHLORIDE 107 mmol/L (98-107); CO2 26 mmol/L (21-32); CREATININE 0.5 mg/dL (0.55-1.02); GLUCOSE,RANDOM 92 mg/dL (74-106); SGPT/ALT 11 U/L (12-78); SODIUM 140 mmol/L (136-145)
[2017-06-28] MEDS ORDERED: morphine SULFATE 4 MG/ML VIAL ONE (12:27)
[2017-06-28 12:45] LABS: POTASSIUM 4.3 mmol/L (3.5-5.1); SGOT/AST 24 U/L (15-37)
--- NOTE | 2017-06-28 17:13 | HP ---
CHIEF COMPLAINT: chest pain PCP: HISTORY OF PRESENT ILLNESS: 72F pmh AFib, Parkinson's disease, PVD s/p Rt popliteal stent, Left toe amputations, AAA(4.7cm), Vp [employer] [place] s/p chemo XRT, presents with sudden onset chest pain and SOB started this morning upon awakening. Chest pain sharp, substernal and not similar to any symptoms in the past. She has had a nonproductive cough for a few days, which per typically happens time to time if she does not eat with a straw. PCP Dr abreu Director Of [employer]gr[employer] Dr Sharpe ER course was notable for: (1) morphine (2) duoneb (3) Social History: Smoking: Alcohol: Drugs: Family History: Allergies aspirin Allergy (Verified 06/28/17 10:14) Penicillins Allergy (Verified 06/28/17 10:14) HOME MEDICATIONS: Home Medications Medication Instructions Recorded Carbidopa/Levodopa 1 each PO TID 07/24/16 [Carbidopa-Levodopa 25-100 Tab] Multivit-Min/Iron/Folic/Lutein 1 each PO DAILY 10/18/16 [Centrum Silver Women Tablet] Metoprolol Succinate [Toprol XL -] 50 mg PO DAILY tab.sr 10/30/16 Aa/Hydrolyzed Collagen, Whey [Lps 15 gm PO DAILY 12/09/16 Neutral Flavor Liquid] Zinc Sulfate 1 cap PO DAILY 12/09/16 Collagenase Clostridium Hist. 1 applic TP DAILY #90 oint...g. 03/10/17 [Santyl] Clopidogrel Bisulfate [Plavix] 75 mg PO DAILY 04/30/17 Acetaminophen [Tylenol .Regular 650 mg PO Q6H PRN tablet 05/16/17 Strength -] Diltiazem Cd [Cardizem Cd -] 120 mg PO BID 30 Days #60 05/16/17 cap.cd.24h REVIEW OF SYSTEMS CONSTITUTIONAL: Absent: fever, chills, diaphoresis, generalized weakness, malaise, loss of appetite, weight change HEENT: Absent: rhinorrhea, nasal congestion, throat pain, throat swelling, difficulty swallowing, mouth swelling, ear pain, eye pain, visual changes CARDIOVASCULAR: Absent: chest pain, syncope, palpitations, irregular heart rate, lightheadedness , peripheral edema RESPIRATORY: Absent: cough, shortness of breath, dyspnea with exertion, orthopnea, wheezing, stridor, hemoptysis GASTROINTESTINAL: Absent: abdominal pain, abdominal distension, nausea, vomiting, diarrhea, constipation, melena, hematochezia GENITOURINARY: Absent: dysuria, frequency, urgency, hesitancy, hematuria, flank pain, genital pain MUSCULOSKELETAL: Absent: myalgia, arthralgia, joint swelling, back pain, neck pain SKIN: Absent: rash, itching, pallor HEMATOLOGIC/IMMUNOLOGIC: Absent: easy bleeding, easy bruising, lymphadenopathy, frequent infections ENDOCRINE: Absent: unexplained weight gain, unexplained weight loss, heat intolerance, cold intolerance NEUROLOGIC: Absent: headache, focal weakness or paresthesias, dizziness, unsteady gait, seizure, mental status changes, bladder or bowel incontinence PSYCHIATRIC: Absent: anxiety, depression, suicidal or homicidal ideation, hallucinations. PHYSICAL EXAMINATION Vital Signs - 24 hr 06/28/17 06/28/17 10:14 14:39 Temperature 98.5 F 98.6 F Pulse Rate 90 Pulse Rate [ 89 Left Apical] Respiratory 20 16 Rate Blood Pressure 120/73 Blood Pressure 120/94 [Left Arm] O2 Sat by Pulse 97 98 Oximetry (%) GENERAL: Awake, alert, and fully oriented, in no acute distress. HEAD: Normal with no signs of trauma. EYES: Pupils equal, round and reactive to light, extraocular movements intact, sclera anicteric, conjunctiva clear. No lid lag. EARS, NOSE, THROAT: Ears normal, nares patent, oropharynx clear without exudates. Moist mucous membranes. NECK: Normal range of motion, supple without lymphadenopathy, JVD, or masses. LUNGS: Breath sounds equal, clear to auscultation bilaterally. No wheezes, and no crackles. No accessory muscle use. HEART: Regular rate and rhythm, normal S1 and S2 without murmur, rub or gallop. ABDOMEN: Soft, nontender, not distended, normoactive bowel sounds, no guarding, no rebound, no masses. No hepatomegaly or splenomegaly. MUSCULOSKELETAL: Normal range of motion at all joints. No bony deformities or tenderness. No CVA tenderness. UPPER EXTREMITIES: 2+ pulses, warm, well-perfused. No cyanosis. No clubbing. No peripheral edema. LOWER EXTREMITIES: 2+ pulses, warm, well-perfused. No calf tenderness. No peripheral edema. NEUROLOGICAL: Cranial nerves II-XII intact. Normal speech. Normal gait. PSYCHIATRIC: Cooperative. Good eye contact. Appropriate mood and affect. SKIN: Warm, dry, normal turgor, no rashes or lesions noted, normal capillary refill. Laboratory Results - last 24 hr 06/28/17 06/28/17 06/28/17 10:53 10:59 10:59 WBC 9.5 RBC 3.98 Hgb 10.8 Hct 33.2 MCV 83.4 MCH 27.0 MCHC 32.4 RDW 16.9 H D Plt Count 199 D MPV 7.9 Neutrophils % 75.7 Lymphocytes % 13.0 D Monocytes % 9.7 Eosinophils % 0.9 Basophils % 0.7 PT with INR 14.50 H INR 1.28 H Sodium Potassium Chloride Carbon Dioxide Anion Gap BUN Creatinine Creat Clearance w eGFR Random Glucose Calcium Total Bilirubin AST ALT Alkaline Phosphatase Creatine Kinase 46 Troponin I < 0.02 Total Protein Albumin 06/28/17 10:59 WBC RBC Hgb Hct MCV MCH MCHC RDW Plt Count MPV Neutrophils % Lymphocytes % Monocytes % Eosinophils % Basophils % PT with INR INR Sodium 140 Potassium 4.3 Chloride 107 Carbon Dioxide 26 Anion Gap 7 L BUN 12 Creatinine 0.5 L Creat Clearance w eGFR > 60 Random Glucose 92 Calcium 9.1 Total Bilirubin 0.7 D AST 24 ALT 11 L Alkaline Phosphatase 155 H Creatine Kinase Troponin I Total Protein 8.0 Albumin 2.9 L ASSESSMENT/PLAN: chest pain, SOB - unclear etiology, likely has underlying CAD, evaluate troponins and r/o ACS. given subtherapeutic INR and limited ambulatory, prudent to eval for PE as well. Cardiology consult trend troponins obtain D Dimer - if needed CTA Afib - Diltiazem 240 daily, Toprol XL 50 daily subtherapeutic inr, per ericka not on any coumadin/anticoagulation, cardio eval lorazepam 0.5mg BID Parkinson's Disease - carbidopa/levodopa 36.5/125 two tab BID not in system - give 50/200 BID while inpatient PVD: plavix, has an aspirin allergy Visit type - Emergency Visit Emergency Visit: Yes ED Registration Date: 06/28/17 Care time: The patient presented to the Emergency Department on the above date and was hospitalized for further evaluation of their emergent condition. - New Patient This patient is new to me today: Yes Date on this admission: 06/28/17 - Critical Care Critical Care patient: No Hospitalist Screening - Colonoscopy Questionnaire Colonoscopy Questionnaire: Colonoscopy Questionnaire - Patient: 50 - 75 years old and never had a screening colonoscopy: No History of colon or rectal polyps, or CA: Unknown History of IBD, Crohn's disease or UC: Unknown History of abdominal radiation therapy as a child: Unknown - Relative: 1 with colon or rectal CA, or polyps at age 60 or younger: Unknown Colon or rectal CA diagnosed at age 45 or younger: Unknown Multiple relatives with colon or rectal CA: Unknown - Outcome: Screening Result: Negative Screen
[2017-06-28] MEDS: ENOXAPARIN NA (PORCINE) 60 MG/0.6 ML DISP.SYRIN SQ SCH (21:06)
[2017-06-28] MEDS: CARBIDOPA/LEVODOPA 25/100 TABLET (FP) PO SCH (21:33)
[2017-06-28] MEDS ORDERED: CARBIDOPA/LEVODOPA 25/100 TABLET (FP) PO SCH (22:00)
[2017-06-29 02:08] VITALS: BMI 18.6
[2017-06-29] MEDS ORDERED: PT OWN MED DRAWER 7, Y5N ONE ×3 (05:58→21:35)
[2017-06-29] MEDS: ENOXAPARIN NA (PORCINE) 60 MG/0.6 ML DISP.SYRIN SQ SCH (06:00)
[2017-06-29 08:05] LABS: ALBUMIN 2.8 g/dl (3.4-5.0); ANION GAP 7 (8-16); CHLORIDE 107 mmol/L (98-107); CO2 26 mmol/L (21-32); MAGNESIUM 1.8 mg/dL (1.8-2.4); POTASSIUM 3.8 mmol/L (3.5-5.1); SODIUM 140 mmol/L (136-145)
[2017-06-29 08:13] LABS: ALK PHOS 140 U/L (45-117); BILIRUBIN,TOTAL 0.9 mg/dL (0.2-1.0); BLOOD UREA NITROGEN 12 mg/dL (7-18); CALCIUM 9.4 mg/dL (8.5-10.1); CHOLESTEROL 141 mg/dL (50-200); CREATININE 0.5 mg/dL (0.55-1.02); GLUCOSE,RANDOM 70 mg/dL (74-106); HDL CHOLESTEROL 57 mg/dL (40-60); LDL CHOLESTEROL (ONLY SJRH) 75 mg/dL (5-100); PHOSPHOROUS 3.5 mg/dL (2.5-4.9); SGOT/AST 13 U/L (15-37); SGPT/ALT 7 U/L (12-78); TOT PROT 7.4 g/dl (6.4-8.2); TRIGLYCERIDES 52 mg/dL (35-160)
[2017-06-29 08:48] LABS: BASO % 0.5 % (0-2.0); HEMATOCRIT 32.8 % (32.4-45.2); HEMOGLOBIN 10.7 GM/dL (10.7-15.3); LYMPH % 34.2 % (8-40); MCH 27.1 pg (25.7-33.7); MCHC 32.5 g/dl (32.0-36.0); MEAN CELL VOLUME 83.4 fl (80-96); MEAN PLT VOLUME 8.2 fl (7.5-11.1); MONO % 10.6 % (3.8-10.2); NEUT % 51.7 % (42.8-82.8); PLATELET COUNT 186 K/MM3 (134-434); RBC 3.94 M/mm3 (3.60-5.2); WHITE BLOOD COUNT 7.8 K/mm3 (4.0-10.0)
[2017-06-29] MEDS ORDERED: ACETAMINOPHEN 325 MG TABLET (FP) PO PRN (09:46)
[2017-06-29] MEDS: CLOPIDOGREL BISULFATE 75 MG TABLET (FP) PO SCH (09:57)
[2017-06-29] MEDS: CARBIDOPA/LEVODOPA 25/100 TABLET (FP) PO SCH ×2 (09:58→21:40)
[2017-06-29] MEDS ORDERED: ZINC SULFATE 220 MG CAPSULE (FP) PO SCH (10:00)
--- NOTE | 2017-06-29 11:10 | CON.CARD ---
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 She thinks cp is from arthritis. Right shoulders hurt b/l and radiate to upper chest. Worse with movement of arms and deep breaths. No sob, palps, dizzy, loc, pnd, orthopnea, le edema. No cp this AM. pmh/psh: per hpi social: + tobacco, prior heavy etoh fam: adopted, hx unknown ros: per hpi; no f/c/s, nvd, cough, nasal congestion, MENJIVAR, vision changes, gib, dysuria Ambulatory Orders Home Medications Medication Instructions Recorded Carbidopa/Levodopa 1 each PO TID 07/24/16 [Carbidopa-Levodopa 25-100 Tab] Multivit-Min/Iron/Folic/Lutein 1 each PO DAILY 10/18/16 [Centrum Silver Women Tablet] Metoprolol Succinate [Toprol XL -] 50 mg PO DAILY tab.sr 10/30/16 Aa/Hydrolyzed Collagen, Whey [Lps 15 gm PO DAILY 12/09/16 Neutral Flavor Liquid] Zinc Sulfate 1 cap PO DAILY 12/09/16 Collagenase Clostridium Hist. 1 applic TP DAILY #90 oint...g. 03/10/17 [Santyl] Clopidogrel Bisulfate [Plavix] 75 mg PO DAILY 04/30/17 Acetaminophen [Tylenol .Regular 650 mg PO Q6H PRN tablet 05/16/17 Strength -] Diltiazem Cd [Cardizem Cd -] 120 mg PO BID 30 Days #60 05/16/17 cap.cd.24h Vital Signs Period Temp Pulse Resp BP Sys/Watkins Pulse Ox Last 24 Hr 97.5 F-99.4 F 77-96 16-20 105-128/54-94 95-98 nad, calm, cachectic no jvd irregularly, irregular nl s1s2 no mrg nd pmi cta bl poor eff + bs soft nt nd, no hsm. aaox3 no le e/c/c abd nt nd pos bs +dp/pt. no carotid bruits no jaundice diaphoresis CBC, BMP 06/29/17 07:00 06/29/17 07:00 Laboratory Last Values WBC 7.8 K/mm3 (4.0-10.0) 06/29/17 07:00 RBC 3.94 M/mm3 (3.60-5.2) 06/29/17 07:00 Hgb 10.7 GM/dL (10.7-15.3) 06/29/17 07:00 Hct 32.8 % (32.4-45.2) 06/29/17 07:00 MCV 83.4 fl (80-96) 06/29/17 07:00 MCH 27.1 pg (25.7-33.7) 06/29/17 07:00 MCHC 32.5 g/dl (32.0-36.0) 06/29/17 07:00 RDW 17.0 % (11.6-15.6) H 06/29/17 07:00 Plt Count 186 K/MM3 (134-434) 06/29/17 07:00 MPV 8.2 fl (7.5-11.1) 06/29/17 07:00 Neutrophils % 51.7 % (42.8-82.8) D 06/29/17 07:00 Lymphocytes % 34.2 % (8-40) D 06/29/17 07:00 Monocytes % 10.6 % (3.8-10.2) H 06/29/17 07:00 Eosinophils % 3.0 % (0-4.5) D 06/29/17 07:00 Basophils % 0.5 % (0-2.0) 06/29/17 07:00 PT with INR 14.50 SEC (9.98-11.88) H 06/28/17 10:59 INR 1.28 (0.82-1.09) H 06/28/17 10:59 D-Dimer 1877 ng/ml (0-500) H 06/28/17 17:00 Sodium 140 mmol/L (136-145) 06/29/17 07:00 Potassium 3.8 mmol/L (3.5-5.1) 06/29/17 07:00 Chloride 107 mmol/L (98-107) 06/29/17 07:00 Carbon Dioxide 26 mmol/L (21-32) 06/29/17 07:00 Anion Gap 7 (8-16) L 06/29/17 07:00 BUN 12 mg/dL (7-18) 06/29/17 07:00 Creatinine 0.5 mg/dL (0.55-1.02) L 06/29/17 07:00 Creat Clearance w eGFR > 60 (>60) 06/29/17 07:00 Random Glucose 70 mg/dL (74-106) L 06/29/17 07:00 Hemoglobin A1c % 5.4 % (4.8-6.0) 06/29/17 07:00 Calcium 9.4 mg/dL (8.5-10.1) 06/29/17 07:00 Phosphorus 3.5 mg/dL (2.5-4.9) 06/29/17 07:00 Magnesium 1.8 mg/dL (1.8-2.4) 06/29/17 07:00 Total Bilirubin 0.9 mg/dL (0.2-1.0) D 06/29/17 07:00 AST 13 U/L (15-37) L 06/29/17 07:00 ALT 7 U/L (12-78) L 06/29/17 07:00 Alkaline Phosphatase 140 U/L (45-117) H 06/29/17 07:00 Creatine Kinase 46 IU/L (26-192) 06/28/17 10:53 Troponin I < 0.02 ng/ml (0.00-0.05) 06/29/17 07:00 Total Protein 7.4 g/dl (6.4-8.2) 06/29/17 07:00 Albumin 2.8 g/dl (3.4-5.0) L 06/29/17 07:00 Triglycerides 52 mg/dL (35-160) 06/29/17 07:00 Cholesterol 141 mg/dL (50-200) 06/29/17 07:00 Total LDL Cholesterol 75 mg/dL (5-100) 06/29/17 07:00 HDL Cholesterol 57 mg/dL (40-60) 06/29/17 07:00 ekg: afib, 100 bpm. nl qtc, no ischemic changes. cxr: clear lungs stress 03/2017: baseline afib, no ischemic changes. inferior artifact. no ischemia/infarct. nl ef. echo 10/2016: nl lv/rv, mod mr, mild tr. 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 cp: -no signs acs, ce's neg -seems msk -recent echo and mibi unremarkable afib -cont home dilt, bb -recurrent frequent falls. fall/bleeding risk thought to outweigh benefit of AC. con't plavix (asa allergy) monotherapy instead of AC. htn - stable pvd/AAA/+ tobacco - con't plavix. not on statin, will defer to outpatient md's. - smoking cessation
[2017-06-29] MEDS: LIDOCAINE 5% TOPICAL PATCH TP SCH (11:30)
[2017-06-29] MEDS: LORazepam 0.5 MG TABLET PO PRN ×2 (12:12→21:44)
--- NOTE | 2017-06-29 13:19 | PN ---
Physical Exam: SUBJECTIVE: Patient seen and examined. In no acute distress. comfortable now. Now chest lynch. OBJECTIVE: CTA negative for PE Lovenox stopped, negative DVT Vital Signs Period Temp Pulse Resp BP Sys/Watkins Pulse Ox Last 24 Hr 97.5 F-99.4 F 77-96 16-20 105-128/54-94 95-98 GENERAL: The patient is awake, alert, and fully oriented, in no acute distress. Speaks in a whisper HEAD: Normal with no signs of trauma. EYES: PERRL, extraocular movements intact, sclera anicteric, conjunctiva clear. No ptosis. ENT: Ears normal, nares patent, oropharynx clear without exudates, moist mucous membranes. NECK: Trachea midline, full range of motion, supple. LUNGS: Breath sounds equal, clear to auscultation anteriorly HEART: Regular rate and rhythm ABDOMEN: Soft, nontender, nondistended, normoactive bowel sounds, no guarding EXTREMITIES: no edema. NEUROLOGICAL: Normal speech, gait not observed. PSYCH: Normal mood, normal affect. SKIN: Warm, dry, normal turgor, no rashes or lesions noted Laboratory Results - last 24 hr 06/28/17 06/28/17 06/28/17 10:53 17:00 17:00 WBC RBC Hgb Hct MCV MCH MCHC RDW Plt Count MPV Neutrophils % Lymphocytes % Monocytes % Eosinophils % Basophils % D-Dimer 1877 H Sodium Potassium Chloride Carbon Dioxide Anion Gap BUN Creatinine Creat Clearance w eGFR Random Glucose Hemoglobin A1c % Calcium Phosphorus Magnesium Total Bilirubin AST ALT Alkaline Phosphatase Creatine Kinase 46 Troponin I < 0.02 < 0.02 Total Protein Albumin Triglycerides Cholesterol Total LDL Cholesterol HDL Cholesterol 06/29/17 06/29/17 06/29/17 07:00 07:00 07:00 WBC 7.8 RBC 3.94 Hgb 10.7 Hct 32.8 MCV 83.4 MCH 27.1 MCHC 32.5 RDW 17.0 H Plt Count 186 MPV 8.2 Neutrophils % 51.7 D Lymphocytes % 34.2 D Monocytes % 10.6 H Eosinophils % 3.0 D Basophils % 0.5 D-Dimer Sodium 140 Potassium 3.8 Chloride 107 Carbon Dioxide 26 Anion Gap 7 L BUN 12 Creatinine 0.5 L Creat Clearance w eGFR > 60 Random Glucose 70 L Hemoglobin A1c % 5.4 Calcium 9.4 Phosphorus 3.5 Magnesium 1.8 Total Bilirubin 0.9 D AST 13 L ALT 7 L Alkaline Phosphatase 140 H Creatine Kinase Troponin I Total Protein 7.4 Albumin 2.8 L Triglycerides 52 Cholesterol 141 Total LDL Cholesterol 75 HDL Cholesterol 57 06/29/17 07:00 WBC RBC Hgb Hct MCV MCH MCHC RDW Plt Count MPV Neutrophils % Lymphocytes % Monocytes % Eosinophils % Basophils % D-Dimer Sodium Potassium Chloride Carbon Dioxide Anion Gap BUN Creatinine Creat Clearance w eGFR Random Glucose Hemoglobin A1c % Calcium Phosphorus Magnesium Total Bilirubin AST ALT Alkaline Phosphatase Creatine Kinase Troponin I < 0.02 Total Protein Albumin Triglycerides Cholesterol Total LDL Cholesterol HDL Cholesterol Active Medications Generic Name Dose Route Start Last Admin Trade Name Freq PRN Reason Stop Dose Admin Acetaminophen 650 mg 06/29/17 09:46 Tylenol - PO Q6H PRN PAIN LEVEL 1-5 Carbidopa/Levodopa 2 each 06/28/17 22:00 06/29/17 09:58 Sinemet 25/100 - PO 2 each BID MELANY Administration Clopidogrel Bisulfate 75 mg 06/29/17 10:00 06/29/17 09:57 Plavix - PO 75 mg DAILY MELANY Administration Diltiazem HCl 240 mg 06/29/17 10:00 06/29/17 09:57 Cardizem Cd - PO 240 mg DAILY MELANY Administration Lidocaine 1 patch 06/29/17 10:00 06/29/17 11:30 Lidoderm Patch - TP 1 patch DAILY MELANY Administration Lorazepam 0.5 mg 06/28/17 17:37 06/29/17 12:12 Ativan - PO 0.5 mg BID PRN Administration ANXIETY Metoprolol Succinate 50 mg 06/29/17 10:00 06/29/17 09:57 Toprol Xl - PO 50 mg DAILY MELANY Administration Miscellaneous 1 each 06/29/17 22:00 Lidoderm Patch Removal MC DAILY@2200 [facility] ASSESSMENT/PLAN: Pateint is a 72 year old patient with a significant past medical history of PVD s/p right popliteal stent, left toe amputations, 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 Patient presents to the ED with sudden onset chest pain and SOB. Chest pain reported to be sharp, substernal. She has had a nonproductive cough for a few days. Card: chest pain, SOB Denies chest pain now Trops negative, ACS r/o by cardiology CTA negative for PE Negative for DVT Cardiology following D dimer elevated, but CTA negative, stop Lovenox Afib, chronic On Diltiazem 240mg daily Toprol XL 50mg daily Not on anticoags secondary to fall history Cardiology following Neuro: Parkinson's Disease On carbidopa/levodopa PT evaluation Vascular: PVD, hx On Plavix daily Disposition: full code. Visit type - Emergency Visit Emergency Visit: Yes ED Registration Date: 06/28/17 Care time: The patient presented to the Emergency Department on the above date and was hospitalized for further evaluation of their emergent condition. - New Patient This patient is new to me today: Yes Date on this admission: 06/29/17 - Critical Care Critical Care patient: No - Discharge Referral Referred to [facility] Med [facility] No
[2017-06-29] MEDS ORDERED: LIDOCAINE PATCH REMOVAL MC SCH (22:00)
[2017-06-30] MEDS: CARBIDOPA/LEVODOPA 25/100 TABLET (FP) PO SCH (09:22)
[2017-06-30] MEDS: LIDOCAINE 5% TOPICAL PATCH TP SCH (09:22)
[2017-06-30] MEDS: LORazepam 0.5 MG TABLET PO PRN (09:23)
[2017-06-30] MEDS: CLOPIDOGREL BISULFATE 75 MG TABLET (FP) PO SCH (09:23)
--- NOTE | 2017-06-30 13:54 | DS ---
Physical Examination Vital Signs: Vital Signs Temperature 37.1 C 06/30/17 09:00 Pulse Rate 92 H 06/30/17 09:00 Respiratory Rate 16 06/30/17 09:00 Blood Pressure 123/60 06/30/17 09:00 O2 Sat by Pulse Oximetry (%) 97 06/30/17 07:42 Labs: CBC, BMP 06/29/17 07:00 06/29/17 07:00 Discharge Summary Reason For Visit: ATYPICAL CHEST PAIN Current Active Problems Chest pain at rest (Acute) SOB (shortness of breath) (Acute) Condition: Good - Instructions Diet, Activity, Other Instructions: resume previous diet and activity Referrals: Manohar Ramirez MD [Primary Care Provider] - 1 Week Disposition: HOME - Home Medications Comprehensive Discharge Medication List: Ambulatory Orders Carbidopa/Levodopa [Carbidopa-Levodopa 25-100 Tab] 1 each PO TID 07/24/16 Multivit-Min/Iron/Folic/Lutein [Centrum Silver Women Tablet] 1 each PO DAILY Metoprolol Succinate [Toprol XL -] 50 mg PO DAILY tab.sr 10/30/16 Aa/Hydrolyzed Collagen, Whey [Lps Neutral Flavor Liquid] 15 gm PO DAILY Zinc Sulfate 1 cap PO DAILY 12/09/16 Clopidogrel Bisulfate [Plavix] 75 mg PO DAILY 04/30/17 Acetaminophen [Tylenol .Regular Strength -] 650 mg PO Q6H PRN tablet 05/16/17 Diltiazem Cd [Cardizem Cd -] 120 mg PO BID 30 Days #60 cap.cd.24h 05/16/17 Lidocaine 5% Patch [Lidoderm -] 1 patch TP DAILY #30 patch 06/30/17
[2017-06-30 14:38] VITALS: BP 104/53; PULSE 81; TEMP 98.5
== END 2017-06-30 15:33 | disposition home or self-care (01) ==
LOC: JER 10:10 → JERBED 14:31 → J4S 18:50
PROVIDERS: ADMIT Internal Medicine; ATTEND Internal Medicine
PROC: 3E033NZ Introduction of Analgesics, Hypnotics, Sedatives into Peripheral Vein, Percutaneous Approach (ICD-10-PCS; principal; 2017-06-28)
PROC: 3E013GC Introduction of Other Therapeutic Substance into Subcutaneous Tissue, Percutaneous Approach (ICD-10-PCS; 2017-06-28)
DX: R07.89 Other chest pain (principal); R06.02 Shortness of breath; I10 Essential (primary) hypertension; I74.3 Embolism and thrombosis of arteries of the lower extremities; I48.91 Unspecified atrial fibrillation; I71.4 Abdominal aortic aneurysm, without rupture; I73.9 Peripheral vascular disease, unspecified; F41.9 Anxiety disorder, unspecified; R29.6 Repeated falls; G20 Parkinson's disease; Z95.820 Peripheral vascular angioplasty status with implants and grafts; Z85.40 Personal history of malignant neoplasm of unspecified female genital organ; Z79.01 Long term (current) use of anticoagulants; Z89.422 Acquired absence of other left toe(s); Z88.0 Allergy status to penicillin; Z88.6 Allergy status to analgesic agent; Z87.891 Personal history of nicotine dependence; Z82.49 Family history of ischemic heart disease and other diseases of the circulatory system; Z92.21 Personal history of antineoplastic chemotherapy
CPT/HCPCS: 36415; 71045-TC-FY; 71275-TC; 80053; 80061; 82550; 83036; 83721; 83735; 84100; 84484; 85025; 85379; 85610; 93005; 93010; 93970-TC; 96372; 96374; 99285-25; G0378

== ENCOUNTER 2017-07-16 12:54 | Inpatient (IN) | payer OTHER ==
[2017-07-16 13:28] VITALS: BMI 17.4
[2017-07-16] MEDS ORDERED: SODIUM CHLORIDE 500 ML IV STA ×4 (13:28→17:38)
[2017-07-16] MEDS ORDERED: dilTIAZem HCL 50 MG/10 ML - 10 ML VIAL IVPUSH ONE ×3 (13:31→14:42)
[2017-07-16] MEDS ORDERED: dilTIAZem HCL 30 MG TABLET (FP) PO ONE (13:31)
--- NOTE | 2017-07-16 13:33 | PDOC ---
History of Present Illness - General Chief Complaint: Nausea/Vomiting Stated Complaint: abdominal pain Time Seen by Provider: 07/16/17 13:24 History Source: Patient, Spouse - History of Present Illness Quality: reports: severe Abdominal Pain Onset Location: reports: generalized abdomen Past History - Past Medical History Allergies/Adverse Reactions: Allergies Allergy/AdvReac Type Severity Reaction Status Date / Time aspirin Allergy Verified 07/16/17 13:21 Penicillins Allergy Verified 07/16/17 13:21 Home Medications: Ambulatory Orders Carbidopa/Levodopa [Carbidopa-Levodopa 25-100 Tab] 1 each PO TID 07/24/16 Multivit-Min/Iron/Folic/Lutein [Centrum Silver Women Tablet] 1 each PO DAILY Metoprolol Succinate [Toprol XL -] 50 mg PO DAILY tab.sr 10/30/16 Aa/Hydrolyzed Collagen, Whey [Lps Neutral Flavor Liquid] 15 gm PO DAILY Zinc Sulfate 1 cap PO DAILY 12/09/16 Clopidogrel Bisulfate [Plavix] 75 mg PO DAILY 04/30/17 Acetaminophen [Tylenol .Regular Strength -] 650 mg PO Q6H PRN tablet 05/16/17 Diltiazem Cd [Cardizem Cd -] 120 mg PO BID 30 Days #60 cap.cd.24h 05/16/17 Lidocaine 5% Patch [Lidoderm -] 1 patch TP DAILY #30 patch 06/30/17 Anemia: Yes Asthma: No Cancer: No Cardiac Disorders: Yes (afib, AAA) CVA: No COPD: No CHF: No DVT: No Dementia: No Diabetes: No GI Disorders: No Disorders: No HTN: Yes Hypercholesterolemia: Yes Liver Disease: No Seizures: No Thyroid Disease: No - Surgical History Abdominal Surgery: No Appendectomy: No Cardiac Surgery: No Cholecystectomy: No Lung Surgery: No Neurologic Surgery: No Orthopedic Surgery: No - Immunization History Immunization Up to Date: Yes - Suicide/Smoking/Psychosocial Hx Smoking History: Unknown if ever smoked Have you smoked in the past 12 months: Yes Number of Cigarettes Smoked Daily: 5 If you are a former smoker, when did you quit?: august 2016 Information on smoking cessation initiated: No 'Breaking Loose' booklet given: 06/28/17 Hx Alcohol Use: No Drug/Substance Use Hx: No Substance Use Type: Alcohol Hx Substance Use Treatment: No Review of Systems - Review of Systems Constitutional: No: Chills, Fever Respiratory: No: Shortness of Breath Cardiac (ROS): No: Chest Pain, Lightheadedness, Palpitations, Syncope ABD/GI: Yes: Diarrhea, Nausea, Vomiting, Abdominal cramping *Physical Exam - Vital Signs Last Vital Signs Temp Pulse Resp BP Pulse Ox 98.0 F 82 16 125/79 97 07/16/17 12:55 07/16/17 12:55 07/16/17 12:55 07/16/17 12:55 07/16/17 12:55 - Physical Exam General Appearance: Yes: Appropriately Dressed, Mild Distress HEENT: positive: Normal Voice Neck: positive: Supple Respiratory/Chest: positive: Lungs Clear, Normal Breath Sounds. negative: Respiratory Distress Cardiovascular: positive: S1, S2, Irregularly Irregular Gastrointestinal/Abdominal: positive: Normal Bowel Sounds, Tender (to epigastrium and LLQ), Soft. negative: Distended, Guarding, Rebound Integumentary: positive: Dry, Warm Neurologic: positive: Fully Oriented, Alert, Normal Mood/Affect ED Treatment Course - LABORATORY CBC & Chemistry Diagram: 07/16/17 13:55 07/16/17 13:55 - RADIOLOGY Radiology Studies Ordered: Category Date Time Status CHEST X-RAY PORTABLE* [RAD] Stat Radiology 07/16/17 13:28 Ordered Medical Decision Making - Medical Decision Making 07/16/17 13:31 72-year-old female, history of A. fib on diltiazem and plavix, Parkinson's disease, PVD status post right popliteal stent, left toe amputations, AAA of 4.7 cm, FORENSIC PSYCHIATRIST cancer status post surgery/chemo/radiation remotely, brought in by for nausea, vomiting and diarrhea x several days. Patient also complaining of abdominal pain. No bright red blood per rectum, fever or chills. No recent antibiotic use, recent travel or sick contacts. See exam R/o colitis vs diverticulitis vs SBO -IVF -pain control -labs -CT Rapid afib Afib to 150s in ED Known hx, on dilt but did not take today 2/2 n/v, also on plavix No SOB/CP/dizziness/syncope -dilt IV/po/reassess 07/16/17 15:59 HR now 100 s/p 20mg IV dilt/30 po. Creatinine 1.3, usually ~0.5 at baseline per chart review, most likely reflecting mild acute renal failure stemming possibly from dehydration. Given IV fluids. CT pending 07/16/17 17:41 SBO with transition zone in right pelvis on CT. No nausea, vomiting at this time so will hold off on placing NG tube. Will contact surgery and PMD for admission 07/16/17 17:58 Case d/w Dr Bueno who recommends NPO/IVF for now *DC/Admit/Observation/Transfer Diagnosis at time of Disposition: SBO (small bowel obstruction) - Discharge Dispostion Condition at time of disposition: Fair Admit: Yes - Referrals Referrals: Manohar Ramirez MD [Primary Care Provider] - - Patient Instructions - Post Discharge Activity
--- NOTE | 2017-07-16 13:39 | PDOC ---
*Physical Exam - Vital Signs Last Vital Signs Temp Pulse Resp BP Pulse Ox 98.0 F 82 16 125/79 97 07/16/17 12:55 07/16/17 12:55 07/16/17 12:55 07/16/17 12:55 07/16/17 12:55 - Physical Exam Comments: 07/16/17 13:38 The patient was examined by [FLORENTIN Yang] under my direct supervision. I personally evaluated the patient. I concur with the above findings and the plan of care. ED Treatment Course - LABORATORY CBC & Chemistry Diagram: 07/19/17 10:17 07/19/17 10:17 *DC/Admit/Observation/Transfer Diagnosis at time of Disposition: SBO (small bowel obstruction) - Discharge Dispostion Condition at time of disposition: Fair - Prescriptions - Referrals - Patient Instructions - Post Discharge Activity
[2017-07-16 14:06] LABS: BASO % 0.2 % (0-2.0); EOS % 0.2 % (0-4.5); HEMATOCRIT 40.3 % (32.4-45.2); HEMOGLOBIN 13.2 GM/dL (10.7-15.3); LYMPH % 18.3 % (8-40); MCH 26.8 pg (25.7-33.7); MCHC 32.7 g/dl (32.0-36.0); MEAN CELL VOLUME 82.1 fl (80-96); MEAN PLT VOLUME 7.8 fl (7.5-11.1); MONO % 16.2 % (3.8-10.2); NEUT % 65.1 % (42.8-82.8); PLATELET COUNT 270 K/MM3 (134-434); RBC 4.91 M/mm3 (3.60-5.2); RDW 16.7 % (11.6-15.6); WHITE BLOOD COUNT 6.9 K/mm3 (4.0-10.0)
[2017-07-16] MEDS ORDERED: dilTIAZem HCL 125 MG/25 ML - 25 ML VIAL ONE (14:08)
[2017-07-16 14:36] LABS: ALBUMIN 3.5 g/dl (3.4-5.0); ANION GAP 8 (8-16); BILIRUBIN,TOTAL 1.1 mg/dL (0.2-1.0); BLOOD UREA NITROGEN 40 mg/dL (7-18); CALCIUM 9.8 mg/dL (8.5-10.1); CHLORIDE 103 mmol/L (98-107); CO2 23 mmol/L (21-32); CREATININE 1.3 mg/dL (0.55-1.02); GLUCOSE,RANDOM 128 mg/dL (74-106); POTASSIUM 3.5 mmol/L (3.5-5.1); SGOT/AST 15 U/L (15-37); SGPT/ALT 14 U/L (12-78); SODIUM 134 mmol/L (136-145); TOT PROT 9.6 g/dl (6.4-8.2)
[2017-07-16 14:39] LABS: ALK PHOS 141 U/L (45-117)
[2017-07-16] MEDS ORDERED: dilTIAZem HCL 30 MG TABLET (FP) ONE (14:46)
--- NOTE | 2017-07-16 15:32 | EKG ---
Test Reason : Blood Pressure : / mmHG Vent. Rate : 159 BPM Atrial Rate : 192 BPM P-R Int : 000 ms QRS Dur : 078 ms QT Int : 286 ms P-R-T Axes : 000 011 070 degrees QTc Int : 465 ms POOR DATA QUALITY, INTERPRETATION MAY BE ADVERSELY AFFECTED ATRIAL FIBRILLATION WITH RAPID VENTRICULAR RESPONSE NONSPECIFIC ST AND T WAVE ABNORMALITY ABNORMAL ECG WHEN COMPARED WITH ECG OF 28-JUN-2017 10:18, VENT. RATE HAS INCREASED BY 59 BPM NON-SPECIFIC CHANGE IN ST SEGMENT IN INFERIOR LEADS NONSPECIFIC T WAVE ABNORMALITY, WORSE IN INFERIOR LEADS NONSPECIFIC T WAVE ABNORMALITY NOW EVIDENT IN ANTERIOR LEADS Confirmed by LASHAE HERNANDEZ, BROOKLYN ([id number]) on 07/16/2017 3:32:18 PM Referred By: Confirmed By:BROOK[place]N BHARDWAJ MD
[2017-07-16] MEDS ORDERED: ONDANSETRON 4 MG/2 ML VIAL IVPUSH ONE ×2 (17:38→18:57)
[2017-07-16] MEDS ORDERED: ONDANSETRON 4 MG/2 ML VIAL ONE ×2 (17:46→20:26)
--- NOTE | 2017-07-16 17:56 | HP ---
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 Found to be in rapid afib in ED d/t vomiting of PO meds. In ED given IV dilt with PO and HR stable in 90's. Currently, with intermittent LLQ pain, no n/v. 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) Cardiovascular: Yes: HTN Psych: Yes: Anxiety - Past Surgical History Past Surgical History: Yes: None, Amputation (left 2nd, 3rd phalanges), Stent ( lle) - Smoking History Smoking history: Unknown if ever smoked Have you smoked in the past 12 months: Yes Aproximately how many cigarettes per day: 5 If you are a former smoker, when did you quit?: august 2016 - Alcohol/Substance Use Hx Alcohol Use: No History of Substance Use: reports: None - Social History ADL: Independent 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 [employer] History of Recent Travel: No Home Medications - Allergies Allergies/Adverse Reactions: Allergies Allergy/AdvReac Type Severity Reaction Status Date / Time aspirin Allergy Verified 07/16/17 13:21 Penicillins Allergy Verified 07/16/17 13:21 - Home Medications Home Medications: Ambulatory Orders Carbidopa/Levodopa [Carbidopa-Levodopa 25-100 Tab] 1 each PO TID 07/24/16 Multivit-Min/Iron/Folic/Lutein [Centrum Silver Women Tablet] 1 each PO DAILY Metoprolol Succinate [Toprol XL -] 50 mg PO DAILY tab.sr 10/30/16 Aa/Hydrolyzed Collagen, Whey [Lps Neutral Flavor Liquid] 15 gm PO DAILY Zinc Sulfate 1 cap PO DAILY 12/09/16 Clopidogrel Bisulfate [Plavix] 75 mg PO DAILY 04/30/17 Acetaminophen [Tylenol .Regular Strength -] 650 mg PO Q6H PRN tablet 05/16/17 Diltiazem Cd [Cardizem Cd -] 120 mg PO BID 30 Days #60 cap.cd.24h 05/16/17 Lidocaine 5% Patch [Lidoderm -] 1 patch TP DAILY #30 patch 06/30/17 Review of Systems - Review of Systems Constitutional: reports: No Symptoms Eyes: reports: No Symptoms HENT: reports: No Symptoms Neck: reports: No Symptoms Cardiovascular: reports: No Symptoms Respiratory: reports: No Symptoms Gastrointestinal: reports: Abdominal Pain, Nausea, Vomiting Genitourinary: reports: No Symptoms Musculoskeletal: reports: No Symptoms Integumentary: reports: No Symptoms Neurological: reports: No Symptoms Endocrine: reports: No Symptoms Hematology/Lymphatic: reports: No Symptoms Psychiatric: reports: No Symptoms Physical Examination Vital Signs: Vital Signs Temperature 98.0 F 07/16/17 12:55 Pulse Rate 95 H 07/16/17 14:55 Respiratory Rate 16 07/16/17 12:55 Blood Pressure 119/65 07/16/17 14:55 O2 Sat by Pulse Oximetry (%) 97 07/16/17 12:55 Constitutional: Yes: Calm Eyes: Yes: Conjunctiva Clear HENT: Yes: Atraumatic Neck: Yes: Supple Cardiovascular: Yes: Pulse Irregular, S1, S2 Respiratory: Yes: Regular, CTA Bilaterally Gastrointestinal: Yes: Normal Bowel Sounds, Soft, Tenderness (LLQ), Other (abd scar healed) Extremities: Yes: WNL Edema: No Neurological: Yes: Alert, Oriented, Cran Nerves II-XII Intact Labs: CBC, BMP 07/16/17 13:55 07/16/17 13:55 Imaging - Results Cat Scan: Report Reviewed, Image Reviewed Problem List - Problems (1) SBO (small bowel obstruction) Code(s): K56.609 - UNSP INTESTNL OBST, UNSP TO PARTIAL VERSUS COMPLETE OBST (2) Aneurysm, abdominal aortic Code(s): I71.4 - ABDOMINAL AORTIC ANEURYSM, WITHOUT RUPTURE Qualifiers: Presence of rupture: without rupture Qualified Code(s): I71.4 - Abdominal aortic aneurysm, without rupture (3) Atrial fibrillation with rapid ventricular response Code(s): I48.91 - UNSPECIFIED ATRIAL FIBRILLATION Assessment/Plan Assessment: 72 year old female with sbo Plan: 1. SBO - NPO - IV hydration - Serial abd xray - Surgery consult - NGT as needed 2. A fib - Continue cardizem cd 120 - Toprol 50mg daily - Cardizem prn for repeat rapid a fib 3. Parkinsons - Continue current meds 4. AAA - Hold Plavix - Cont ASA 5. RACHELLE - Likely d/t dehydration - Cont IVF 6. DVT - Heparin sq Visit type - Emergency Visit Emergency Visit: Yes Care time: The patient presented to the Emergency Department on the above date and was hospitalized for further evaluation of their emergent condition. - New Patient This patient is new to me today: Yes Date on this admission: 07/16/17 - Critical Care Critical Care patient: No Hospitalist Screening - Colonoscopy Questionnaire Colonoscopy Questionnaire: Colonoscopy Questionnaire - Patient: 50 - 75 years old and never had a screening colonoscopy: Unknown History of colon or rectal polyps, or CA: Unknown History of IBD, Crohn's disease or UC: Unknown History of abdominal radiation therapy as a child: Unknown - Relative: 1 with colon or rectal CA, or polyps at age 60 or younger: Unknown Colon or rectal CA diagnosed at age 45 or younger: Unknown Multiple relatives with colon or rectal CA: Unknown - Outcome: Screening Result: Negative Screen
[2017-07-16] MEDS ORDERED: morphine SULFATE 4 MG/ML VIAL IVPUSH PRN (18:56)
[2017-07-16] MEDS ORDERED: SODIUM CHLORIDE 1,000 ML IV SCH (19:00)
[2017-07-16] MEDS ORDERED: dilTIAZem HCL 50 MG/10 ML - 10 ML VIAL IVPUSH PRN (19:00)
[2017-07-16] MEDS: CARBIDOPA/LEVODOPA 25/100 TABLET (FP) PO SCH (23:36)
[2017-07-17] MEDS: CARBIDOPA/LEVODOPA 25/100 TABLET (FP) PO SCH (05:47)
[2017-07-17] MEDS ORDERED: HEPARIN NA (PORCINE) 5,000 UNITS/ML 1ML VIAL SQ SCH (06:00)
[2017-07-17 07:48] LABS: BASO % 0.3 % (0-2.0); EOS % 0.5 % (0-4.5); HEMATOCRIT 34.1 % (32.4-45.2); HEMOGLOBIN 10.9 GM/dL (10.7-15.3); LYMPH % 25.1 % (8-40); MCH 26.9 pg (25.7-33.7); MCHC 32.1 g/dl (32.0-36.0); MEAN CELL VOLUME 83.8 fl (80-96); MEAN PLT VOLUME 7.7 fl (7.5-11.1); MONO % 16.1 % (3.8-10.2); PLATELET COUNT 184 K/MM3 (134-434); RBC 4.07 M/mm3 (3.60-5.2); RDW 16.2 % (11.6-15.6)
[2017-07-17 08:27] LABS: ALBUMIN 2.8 g/dl (3.4-5.0); CHLORIDE 110 mmol/L (98-107); POTASSIUM 3.2 mmol/L (3.5-5.1); SODIUM 142 mmol/L (136-145)
[2017-07-17 08:32] LABS: ALK PHOS 110 U/L (45-117); ANION GAP 10 (8-16); BILIRUBIN,TOTAL 1.3 mg/dL (0.2-1.0); BLOOD UREA NITROGEN 21 mg/dL (7-18); CALCIUM 8.7 mg/dL (8.5-10.1); CO2 22 mmol/L (21-32); CREATININE 0.6 mg/dL (0.55-1.02); GLUCOSE,RANDOM 68 mg/dL (74-106); MAGNESIUM 1.7 mg/dL (1.8-2.4); PHOSPHOROUS 2.6 mg/dL (2.5-4.9); SGOT/AST 13 U/L (15-37); SGPT/ALT < 6 U/L (12-78); TOT PROT 7.3 g/dl (6.4-8.2)
--- NOTE | 2017-07-17 10:05 | CONSULT ---
- Consultation REQUESTING PROVIDER: Maryse Camacho CONSULT REQUEST: We have been asked to surgically evaluate this patient for nausea; vomiting and abdominal pain PCP:Dinesh Serra MD HISTORY OF PRESENT ILLNESS: KRIS who is a 72 y/o white female who presented w/ recent onset of ausea and vomiting and crampy abdominal pain which has improved since admission; she states she is passing flatus; she has NOC. PMHx: Parkinson; arterial PVD; htn PSHx: TAHBSO Home Medications Medication Instructions Recorded Carbidopa/Levodopa 1 each PO TID 07/24/16 [Carbidopa-Levodopa 25-100 Tab] Multivit-Min/Iron/Folic/Lutein 1 each PO DAILY 10/18/16 [Centrum Silver Women Tablet] Metoprolol Succinate [Toprol XL -] 50 mg PO DAILY tab.sr 10/30/16 Aa/Hydrolyzed Collagen, Whey [Lps 15 gm PO DAILY 12/09/16 Neutral Flavor Liquid] Zinc Sulfate 1 cap PO DAILY 12/09/16 Clopidogrel Bisulfate [Plavix] 75 mg PO DAILY 04/30/17 Acetaminophen [Tylenol .Regular 650 mg PO Q6H PRN tablet 05/16/17 Strength -] Diltiazem Cd [Cardizem Cd -] 120 mg PO BID 30 Days #60 05/16/17 cap.cd.24h Lidocaine 5% Patch [Lidoderm -] 1 patch TP DAILY #30 patch 06/30/17 Allergies Allergy/AdvReac Type Severity Reaction Status Date / Time aspirin Allergy Verified 07/16/17 13:21 Penicillins Allergy Verified 07/16/17 13:21 PHYSICAL EXAM: GENERAL: Awake, alert, and fully oriented, in no acute distress. HEAD: Normal with no signs of trauma; poor oral hygiene. EYES: anicteric, conjunctiva clear. ABDOMEN: Soft, nontender, not distended, normoactive bowel sounds, no guarding, no rebound, no masses. No organomegaly. No hernias; healed surgical scar. MUSCULOSKELETAL: Normal ROM at all joints. No bony deformities or tenderness. No CVA tenderness. UPPER EXTREMITIES: 2+ pulses, warm, well-perfused. No cyanosis. Cap refill <2 seconds. No peripheral edema. LOWER EXTREMITIES: 2+ pulses, warm, well-perfused. No calf tenderness. No peripheral edema. NEUROLOGICAL: Normal speech, gait not observed. PSYCH: Cooperative. Good eye contact. Appropriate mood and affect. SKIN: Warm, dry, normal turgor, no rashes or lesions noted. Vital Signs Temperature 98.3 F 07/17/17 09:53 Pulse Rate 111 H 07/17/17 09:53 Respiratory Rate 20 07/17/17 09:53 Blood Pressure 109/61 07/17/17 09:53 O2 Sat by Pulse Oximetry (%) 98 07/17/17 06:41 Lab Results WBC 7.0 K/mm3 (4.0-10.0) 07/17/17 06:35 RBC 4.07 M/mm3 (3.60-5.2) 07/17/17 06:35 Hgb 10.9 GM/dL (10.7-15.3) D 07/17/17 06:35 Hct 34.1 % (32.4-45.2) D 07/17/17 06:35 MCV 83.8 fl (80-96) 07/17/17 06:35 MCHC 32.1 g/dl (32.0-36.0) 07/17/17 06:35 RDW 16.2 % (11.6-15.6) H 07/17/17 06:35 Plt Count 184 K/MM3 (134-434) D 07/17/17 06:35 Sodium 142 mmol/L (136-145) 07/17/17 06:35 Potassium 3.2 mmol/L (3.5-5.1) L 07/17/17 06:35 Chloride 110 mmol/L (98-107) H 07/17/17 06:35 Carbon Dioxide 22 mmol/L (21-32) 07/17/17 06:35 Anion Gap 10 (8-16) 07/17/17 06:35 BUN 21 mg/dL (7-18) H 07/17/17 06:35 Creatinine 0.6 mg/dL (0.55-1.02) 07/17/17 06:35 Random Glucose 68 mg/dL (74-106) L 07/17/17 06:35 Calcium 8.7 mg/dL (8.5-10.1) 07/17/17 06:35 CT a/p revewed and images; AXR's from today reviewed. IMP:resolving sbo; partial vs. complete PLAN: Continue present tx. IVF; NPO replace K, MG and phosphorous; will f/u. Godwin Bueno MD FACS Visit type - Case Type Case Type: ED Admission - Emergency Emergency Visit: Yes ED Registration Date: 07/16/17 Care time: The patient presented to the Emergency Department on the above date and was hospitalized for further evaluation of their emergent condition. - New patient This patient is new to me today: Yes Date on this admission: 07/17/17 - Critical Care Critical Care patient: No
[2017-07-17] MEDS ORDERED: MAGNESIUM 2GM/50ML STERILE WATER IVPB IVPB ONE (10:38)
[2017-07-17] MEDS ORDERED: POTASSIUM CHLORIDE 30 MEQ in SODIUM CHLORIDE 285 ML IVPB ONE (10:45)
--- NOTE | 2017-07-17 10:56 | PN ---
Progress Note, Physician Chief Complaint: Pt sitting in chair in no acute distress. at bedside. Reports she is feeling better and passing flatus. Denies any abd pain, n/v/d, chest discomfort , sob or further complaints - Current Medication List Current Medications: Active Medications Carbidopa/Levodopa (Sinemet 25/100 -) 1 each PO TID [facility] Last Admin: 07/17/17 05:47 Dose: 1 each Diltiazem HCl (Cardizem Cd -) 120 mg PO BID [facility] Last Admin: 07/17/17 10:16 Dose: 120 mg Diltiazem HCl (Cardizem Injection -) 5 mg IVPUSH Q4H PRN PRN Reason: TACHYCARDIA Heparin Sodium (Porcine) (Heparin -) 5,000 unit SQ TID [facility] Last Admin: 07/17/17 05:47 Dose: 5,000 unit Sodium Chloride (Normal Saline -) 1,000 mls @ 75 mls/hr IV ASDIR [facility] Last Admin: 07/16/17 20:32 Dose: 75 mls/hr Potassium Chloride 10 meq/ (Sodium Chloride) 105 mls @ 105 mls/hr IVPB Q1H [facility] Stop: 07/17/17 13:44 Metoprolol Succinate (Toprol Xl -) 50 mg PO DAILY [facility] Last Admin: 07/17/17 10:16 Dose: 50 mg Morphine Sulfate (Morphine Sulfate) 1 mg IVPUSH Q4H PRN PRN Reason: PAIN LEVEL 4 - 6 Last Admin: 07/17/17 05:54 Dose: 1 mg Ondansetron HCl (Zofran Injection) 4 mg IVPUSH Q6H PRN PRN Reason: NAUSEA Home MEDS: called pt's pharmacy and updated in system - Objective Vital Signs: Vital Signs Temperature 98.3 F 07/17/17 09:53 Pulse Rate 111 H 07/17/17 09:53 Respiratory Rate 20 07/17/17 09:53 Blood Pressure 109/61 07/17/17 09:53 O2 Sat by Pulse Oximetry (%) 98 07/17/17 06:41 Constitutional: Yes: Calm, Thin Cardiovascular: Yes: Tachycardia, Pulse Irregular. No: Bruit, Gallop Respiratory: Yes: WNL, Regular, CTA Bilaterally, Diminished. No: Accessory Muscle Use, SOB, Tachypnea, Wheezes Gastrointestinal: Yes: WNL, Normal Bowel Sounds, Soft. No: Distention, Tenderness Genitourinary: Yes: WNL Edema: No Neurological: Yes: Alert, Oriented, Other (dysphonia/bradykinesia) Psychiatric: Yes: WNL, Alert, Oriented Labs: CBC, BMP 07/17/17 06:35 07/17/17 06:35 Problem List - Problems (1) SBO (small bowel obstruction) Assessment/Plan: partial sbo,resolving bs +, flatus +, pt denies n/v/d surgery consult appreciated NPO, IVF for now antiemetics prn ambulate as tolerated PT will start clears and advance diet per surgery recs Code(s): K56.609 - UNSP INTESTNL OBST, UNSP TO PARTIAL VERSUS COMPLETE OBST (2) RACHELLE (acute kidney injury) Assessment/Plan: pre renal ivf will monitor Code(s): N17.9 - ACUTE KIDNEY FAILURE, UNSPECIFIED (3) Atrial fibrillation with rapid ventricular response Assessment/Plan: afib w/ rvr, hr in 110s, pt asymptomatic ekg noted not on AC due to frequent falls metoprolol, cardizem cardiology following Code(s): I48.91 - UNSPECIFIED ATRIAL FIBRILLATION (4) Parkinson disease Assessment/Plan: chronic dystonia, bradykinisia with intermittent confusion home med: rytary 36.25/145 2 caps bid, per pt amantadine stopped called pharmacy and verified the medication list followed by outpt neurology dysphagia whole diet when diet advanced Code(s): G20 - PARKINSON'S DISEASE (5) Peripheral vascular disease Assessment/Plan: s/p angiogram, stent lle , 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 continue plavix Code(s): I73.9 - PERIPHERAL VASCULAR DISEASE, UNSPECIFIED (6) HTN (hypertension) Assessment/Plan: controlled continue current regimen Code(s): I10 - ESSENTIAL (PRIMARY) HYPERTENSION Qualifiers: Hypertension type: essential hypertension Qualified Code(s): I10 - Essential (primary) hypertension (7) Bradykinesia Assessment/Plan: secondary to PD chronic Code(s): R25.8 - OTHER ABNORMAL INVOLUNTARY MOVEMENTS (8) Hypophonia Assessment/Plan: chronic as above Code(s): R49.8 - OTHER VOICE AND RESONANCE DISORDERS (9) Hypokalemia Assessment/Plan: secondary to reduced po intake/gi losses kcl iv 10meq x 3 will monitor Code(s): E87.6 - HYPOKALEMIA (10) Hypomagnesemia Assessment/Plan: as above 2g iv mag ordered monitor bmp Code(s): E83.42 - HYPOMAGNESEMIA (11) Low TSH level Assessment/Plan: referred to endocrine last admission, pt did not f/u will check tsh/free t3/t4 will monitor Code(s): R94.6 - ABNORMAL RESULTS OF THYROID FUNCTION STUDIES
--- NOTE | 2017-07-17 12:35 | CON.CARD ---
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 No cp, sob, palps, dizzy, loc, pnd, orthopnea, le edema. Found to have sbo, improving with conservative management. pmh/psh: per hpi social: + tobacco, prior heavy etoh fam: adopted, hx unknown ros: per hpi; no f/c/s, cough, nasal congestion, MENJIVAR, vision changes, gib, dysuria Ambulatory Orders Home Medications Medication Instructions Recorded Carbidopa/Levodopa 1 each PO TID 07/24/16 [Carbidopa-Levodopa 25-100 Tab] Multivit-Min/Iron/Folic/Lutein 1 each PO DAILY 10/18/16 [Centrum Silver Women Tablet] Metoprolol Succinate [Toprol XL -] 50 mg PO DAILY tab.sr 10/30/16 Aa/Hydrolyzed Collagen, Whey [Lps 15 gm PO DAILY 12/09/16 Neutral Flavor Liquid] Zinc Sulfate 1 cap PO DAILY 12/09/16 Clopidogrel Bisulfate [Plavix] 75 mg PO DAILY 04/30/17 Acetaminophen [Tylenol .Regular 650 mg PO Q6H PRN tablet 05/16/17 Strength -] Diltiazem Cd [Cardizem Cd -] 120 mg PO BID 30 Days #60 05/16/17 cap.cd.24h Lidocaine 5% Patch [Lidoderm -] 1 patch TP DAILY #30 patch 06/30/17 Vital Signs Period Temp Pulse Resp BP Sys/Watkins Pulse Ox Last 24 Hr 97.9 F-98.8 F 82-155 16-20 102-125/54-82 97-100 nad, calm, cachectic no jvd irregularly, irregular nl s1s2 no mrg nd pmi cta bl poor eff + bs soft nt nd, no hsm. aaox3 no le e/c/c abd nt nd pos bs +dp/pt. no carotid bruits no jaundice diaphoresis Laboratory Last Values WBC 7.0 K/mm3 (4.0-10.0) 07/17/17 06:35 RBC 4.07 M/mm3 (3.60-5.2) 07/17/17 06:35 Hgb 10.9 GM/dL (10.7-15.3) D 07/17/17 06:35 Hct 34.1 % (32.4-45.2) D 07/17/17 06:35 MCV 83.8 fl (80-96) 07/17/17 06:35 MCH 26.9 pg (25.7-33.7) 07/17/17 06:35 MCHC 32.1 g/dl (32.0-36.0) 07/17/17 06:35 RDW 16.2 % (11.6-15.6) H 07/17/17 06:35 Plt Count 184 K/MM3 (134-434) D 07/17/17 06:35 MPV 7.7 fl (7.5-11.1) 07/17/17 06:35 Neutrophils % 58.0 % (42.8-82.8) 07/17/17 06:35 Lymphocytes % 25.1 % (8-40) D 07/17/17 06:35 Monocytes % 16.1 % (3.8-10.2) H 07/17/17 06:35 Eosinophils % 0.5 % (0-4.5) D 07/17/17 06:35 Basophils % 0.3 % (0-2.0) 07/17/17 06:35 Sodium 142 mmol/L (136-145) 07/17/17 06:35 Potassium 3.2 mmol/L (3.5-5.1) L 07/17/17 06:35 Chloride 110 mmol/L (98-107) H 07/17/17 06:35 Carbon Dioxide 22 mmol/L (21-32) 07/17/17 06:35 Anion Gap 10 (8-16) 07/17/17 06:35 BUN 21 mg/dL (7-18) H 07/17/17 06:35 Creatinine 0.6 mg/dL (0.55-1.02) 07/17/17 06:35 Creat Clearance w eGFR > 60 (>60) 07/17/17 06:35 Random Glucose 68 mg/dL (74-106) L 07/17/17 06:35 Calcium 8.7 mg/dL (8.5-10.1) 07/17/17 06:35 Phosphorus 2.6 mg/dL (2.5-4.9) 07/17/17 06:35 Magnesium 1.7 mg/dL (1.8-2.4) L 07/17/17 06:35 Total Bilirubin 1.3 mg/dL (0.2-1.0) H 07/17/17 06:35 AST 13 U/L (15-37) L 07/17/17 06:35 ALT < 6 U/L (12-78) L 07/17/17 06:35 Alkaline Phosphatase 110 U/L (45-117) 07/17/17 06:35 Creatine Kinase 21 IU/L (26-192) L 07/16/17 13:55 Troponin I < 0.02 ng/ml (0.00-0.05) 07/16/17 13:55 Total Protein 7.3 g/dl (6.4-8.2) 07/17/17 06:35 Albumin 2.8 g/dl (3.4-5.0) L 07/17/17 06:35 Urine Color Cancelled 07/16/17 16:16 Urine Appearance Cancelled 07/16/17 16:16 Urine pH Cancelled 07/16/17 16:16 Ur Specific [place] Cancelled 07/16/17 16:16 Urine Protein Cancelled 07/16/17 16:16 Urine Glucose (UA) Cancelled 07/16/17 16:16 Urine Ketones Cancelled 07/16/17 16:16 Urine Blood Cancelled 07/16/17 16:16 Urine Nitrite Cancelled 07/16/17 16:16 Urine Bilirubin Cancelled 07/16/17 16:16 Urine Urobilinogen Cancelled 07/16/17 16:16 Ur Leukocyte Esterase Cancelled 07/16/17 16:16 ekg: afib, 159 bpm. nl qtc, no ischemic changes. cxr: clear lungs stress 03/2017: baseline afib, no ischemic changes. inferior artifact. no ischemia/infarct. nl ef. echo 10/2016: nl lv/rv, mod mr, mild tr. 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 sbo: -improving, plans per gi, surgery afib -cont home dilt, bb -rate controlled now, likely elevated in setting of sbo, now improving -recurrent frequent falls. fall/bleeding risk thought to outweigh benefit of AC. con't plavix (asa allergy) monotherapy instead of AC. htn - stable pvd/AAA/+ tobacco - con't plavix. not on statin, will defer to outpatient md's. - smoking cessation
[2017-07-17] MEDS: POTASSIUM CHLORIDE 10 MEQ in SODIUM CHLORIDE 100 ML IVPB SCH ×3 (13:57→22:48)
[2017-07-17] MEDS ORDERED: PT OWN MED DRAWER 7, Y5N ONE (14:04)
[2017-07-17] MEDS ORDERED: FAMOTIDINE 20 MG/50 ML IVPB 20 MG/50 ML MG IVPB ONE (15:30)
--- NOTE | 2017-07-17 16:14 | EKG ---
Test Reason : Blood Pressure : / mmHG Vent. Rate : 094 BPM Atrial Rate : 096 BPM P-R Int : 000 ms QRS Dur : 084 ms QT Int : 344 ms P-R-T Axes : 000 014 015 degrees QTc Int : 430 ms ATRIAL FIBRILLATION ABNORMAL ECG WHEN COMPARED WITH ECG OF 16-JUL-2017 13:11, VENT. RATE HAS DECREASED BY 65 BPM Confirmed by MARCOS HICKMAN MD ([id number]) on 07/17/2017 4:13:47 PM Referred By: LUBA ELIZABETH Confirmed By:MARCOS HICKMAN MD
[2017-07-17 17:24] LABS: ANION GAP 10 (8-16); BLOOD UREA NITROGEN 17 mg/dL (7-18); CALCIUM 9.2 mg/dL (8.5-10.1); CHLORIDE 109 mmol/L (98-107); CO2 21 mmol/L (21-32); CREATININE 0.5 mg/dL (0.55-1.02); GLUCOSE,RANDOM 102 mg/dL (74-106); POTASSIUM 3.4 mmol/L (3.5-5.1); SODIUM 140 mmol/L (136-145)
[2017-07-17] MEDS ORDERED: ACETAMINOPHEN 325 MG TABLET (FP) PO PRN (20:36)
[2017-07-17] MEDS ORDERED: POTASSIUM CHLORIDE 10 MEQ in SODIUM CHLORIDE 100 ML IVPB ONE (21:15)
[2017-07-17] MEDS: SODIUM CHLORIDE 1,000 ML IV SCH (22:28)
[2017-07-18] MEDS: SODIUM CHLORIDE 1,000 ML IV SCH (05:40)
[2017-07-18 07:37] LABS: BASO % 0.1 % (0-2.0); EOS % 0.6 % (0-4.5); HEMOGLOBIN 10.9 GM/dL (10.7-15.3); LYMPH % 17.7 % (8-40); MCH 27.2 pg (25.7-33.7); MCHC 33.1 g/dl (32.0-36.0); MEAN CELL VOLUME 82.2 fl (80-96); MEAN PLT VOLUME 7.9 fl (7.5-11.1); MONO % 17.5 % (3.8-10.2); NEUT % 64.1 % (42.8-82.8); PLATELET COUNT 184 K/MM3 (134-434); RBC 4.02 M/mm3 (3.60-5.2); RDW 16.4 % (11.6-15.6); WHITE BLOOD COUNT 6.6 K/mm3 (4.0-10.0)
[2017-07-18 08:26] LABS: ANION GAP 7 (8-16); BLOOD UREA NITROGEN 10 mg/dL (7-18); CALCIUM 8.9 mg/dL (8.5-10.1); CHLORIDE 112 mmol/L (98-107); CO2 23 mmol/L (21-32); CREATININE 0.4 mg/dL (0.55-1.02); GLUCOSE,RANDOM 106 mg/dL (74-106); MAGNESIUM 1.6 mg/dL (1.8-2.4); PHOSPHOROUS 2.2 mg/dL (2.5-4.9); SODIUM 142 mmol/L (136-145)
[2017-07-18] MEDS ORDERED: MAGNESIUM 2GM/50ML STERILE WATER IVPB IVPB ONE (10:00)
[2017-07-18] MEDS: SODIUM CHLORIDE 1,000 ML with POTASSIUM CHLORIDE 40 MEQ IV SCH ×3 (10:20→23:18)
[2017-07-18] MEDS: KCL 10 MEQ IVPB 10 MEQ/100 ML INFUS.BAG IVPB SCH ×2 (10:29→11:24)
--- NOTE | 2017-07-18 10:56 | PN ---
Progress Note, Physician Chief Complaint: Pt lying in bed, reports nausea. vomited bilious outpt overnight, had diarrhea. Denies any abd pain, n/v/d, chest discomfort, sob or further complaints - Current Medication List Current Medications: Active Medications Acetaminophen (Tylenol -) 650 mg PO Q6H PRN PRN Reason: PAIN LEVEL 4 - 6 Carbidopa/Levodopa (Sinemet *Cr* 50/200 -) 1 combo PO BID [facility] Last Admin: 07/18/17 10:37 Dose: 1 combo Diltiazem HCl (Cardizem Cd -) 240 mg PO DAILY [facility] Last Admin: 07/18/17 10:29 Dose: 240 mg Potassium Chloride 40 meq/ (Sodium Chloride) 1,020 mls @ 75 mls/hr IV Q13H [facility] Last Admin: 07/18/17 10:37 Dose: Not Given Potassium Chloride (Potassium Chloride 10 Meq Premix Ivpb -) 10 meq in 100 mls @ 100 mls/hr IVPB Q60M [facility] Stop: 07/18/17 11:59 Last Admin: 07/18/17 10:29 Dose: 100 mls/hr Metoprolol Succinate (Toprol Xl -) 50 mg PO DAILY [facility] Last Admin: 07/18/17 10:28 Dose: 50 mg Ondansetron HCl (Zofran Injection) 4 mg IVPUSH Q6H PRN PRN Reason: NAUSEA - Objective Vital Signs: Vital Signs Temperature 99.4 F 07/18/17 05:56 Pulse Rate 116 H 07/18/17 05:56 Respiratory Rate 18 07/18/17 05:56 Blood Pressure 140/74 07/18/17 05:56 O2 Sat by Pulse Oximetry (%) 94 L 07/17/17 21:00 Constitutional: Yes: No Distress, Calm, Thin Cardiovascular: Yes: Tachycardia, Pulse Irregular Respiratory: Yes: WNL, Regular, CTA Bilaterally. No: SOB, Tachypnea, Wheezes Gastrointestinal: Yes: Normal Bowel Sounds, Soft, Vomiting, Other (diarrhea, nausea). No: Distention, Tenderness Genitourinary: Yes: WNL Edema: No Neurological: Yes: WNL, Alert, Oriented Psychiatric: Yes: WNL, Alert, Oriented Labs: CBC, BMP 07/18/17 06:40 07/18/17 06:40 Problem List - Problems (1) SBO (small bowel obstruction) Code(s): K56.609 - UNSP INTESTNL OBST, UNSP TO PARTIAL VERSUS COMPLETE OBST (2) RACHELLE (acute kidney injury) Code(s): N17.9 - ACUTE KIDNEY FAILURE, UNSPECIFIED (3) Atrial fibrillation with rapid ventricular response Code(s): I48.91 - UNSPECIFIED ATRIAL FIBRILLATION (4) Parkinson disease Code(s): G20 - PARKINSON'S DISEASE (5) Peripheral vascular disease Code(s): I73.9 - PERIPHERAL VASCULAR DISEASE, UNSPECIFIED (6) HTN (hypertension) Code(s): I10 - ESSENTIAL (PRIMARY) HYPERTENSION Qualifiers: Hypertension type: essential hypertension Qualified Code(s): I10 - Essential (primary) hypertension (7) Bradykinesia Code(s): R25.8 - OTHER ABNORMAL INVOLUNTARY MOVEMENTS (8) Hypophonia Code(s): R49.8 - OTHER VOICE AND RESONANCE DISORDERS (9) Hypokalemia Code(s): E87.6 - HYPOKALEMIA (10) Hypomagnesemia Code(s): E83.42 - HYPOMAGNESEMIA (11) Low TSH level Code(s): R94.6 - ABNORMAL RESULTS OF THYROID FUNCTION STUDIES (12) Diarrhea Code(s): R19.7 - DIARRHEA, UNSPECIFIED Assessment/Plan (1) SBO (small bowel obstruction) Assessment/Plan: partial sbo,resolving on 07/17 kub scan repeat kub abd today bs +, flatus +, today nausea/vomiting/diarrhea diet was advanced yesterday to clears, pt unable to tolerate NPO antiemetics prn ambulate as tolerated PT Surgery following Code(s): K56.609 - UNSP INTESTNL OBST, UNSP TO PARTIAL VERSUS COMPLETE OBST (2) RACHELLE (acute kidney injury) Assessment/Plan: pre renal, improving ivf will monitor Code(s): N17.9 - ACUTE KIDNEY FAILURE, UNSPECIFIED (3) Atrial fibrillation with rapid ventricular response Assessment/Plan: afib w/ rvr, hr in 110s, pt asymptomatic ekg noted not on AC due to frequent falls metoprolol, cardizem cardiology following Code(s): I48.91 - UNSPECIFIED ATRIAL FIBRILLATION (4) Parkinson disease Assessment/Plan: chronic dystonia, bradykinisia with intermittent confusion home med: rytary 36.25/145 2 caps bid, per pt amantadine stopped called pharmacy and verified the medication list followed by outpt neurology dysphagia whole diet when diet advanced Code(s): G20 - PARKINSON'S DISEASE (5) Peripheral vascular disease Assessment/Plan: s/p angiogram, stent lle , 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 continue plavix Code(s): I73.9 - PERIPHERAL VASCULAR DISEASE, UNSPECIFIED (6) HTN (hypertension) Assessment/Plan: controlled continue current regimen Code(s): I10 - ESSENTIAL (PRIMARY) HYPERTENSION Qualifiers: Hypertension type: essential hypertension Qualified Code(s): I10 - Essential (primary) hypertension (7) Bradykinesia Assessment/Plan: secondary to PD chronic Code(s): R25.8 - OTHER ABNORMAL INVOLUNTARY MOVEMENTS (8) Hypophonia Assessment/Plan: chronic as above Code(s): R49.8 - OTHER VOICE AND RESONANCE DISORDERS (9) Hypokalemia Assessment/Plan: secondary to reduced po intake/gi losses kcl iv 10meq x 2 kcl added to ivf will monitor Code(s): E87.6 - HYPOKALEMIA (10) Hypomagnesemia Assessment/Plan: as above 2g iv mag ordered monitor bmp Code(s): E83.42 - HYPOMAGNESEMIA (11) Low TSH level Assessment/Plan: referred to endocrine last admission, pt did not f/u during this admission, tsh <0.01 /free t3 pending/t4 5.50 endocrine consult pending Code(s): R94.6 - ABNORMAL RESULTS OF THYROID FUNCTION STUDIES (12) Diarrhea Assessment/Plan: diarrhea overnight cdiff pending Code(s): R19.7 - DIARRHEA, UNSPECIFIED
[2017-07-18] MEDS: ONDANSETRON 4 MG/2 ML VIAL IVPUSH PRN (11:24)
--- NOTE | 2017-07-18 11:55 | PN ---
Progress Note (short form) - Note Progress Note: s: no cp sob palps dizzy o: Vital Signs Period Temp Pulse Resp BP Sys/Watkins Pulse Ox Last 24 Hr 97.9 F-99.4 F 98-116 16-24 116-140/60-74 94-94 nad, calm, cachectic no jvd irregularly, irregular nl s1s2 no mrg cta bl poor eff aaox3 no le e/c/c abd nt nd pos bs no jaundice diaphoresis Current Medications Generic Name Dose Route Start Last Admin Trade Name Freq PRN Reason Stop Dose Admin Acetaminophen 650 mg 07/17/17 20:36 Tylenol - PO Q6H PRN PAIN LEVEL 4 - 6 Carbidopa/Levodopa 1 combo 07/17/17 13:15 07/18/17 10:37 Sinemet *Cr* 50/200 - PO 1 combo BID MELANY Administration Diltiazem HCl 240 mg 07/18/17 10:00 07/18/17 10:29 Cardizem Cd - PO 240 mg DAILY MELANY Administration Potassium Chloride 40 meq/ 1,020 mls @ 75 mls/hr 07/18/17 09:15 07/18/17 10: 37 Sodium Chloride IV Not Given Q13H MELANY Potassium Chloride 10 meq in 100 mls @ 100 mls/hr 07/18/17 10:00 07/18/17 11: 24 Potassium Chloride 10 Meq Premix Ivpb - IVPB 07/18/17 11:59 100 mls/hr Q60M MELANY Administration Metoprolol Succinate 50 mg 07/17/17 10:00 07/18/17 10:28 Toprol Xl - PO 50 mg DAILY MELANY Administration Ondansetron HCl 4 mg 07/16/17 18:56 07/18/17 11:24 Zofran Injection IVPUSH 4 mg Q6H PRN Administration NAUSEA CBC, BMP 07/18/17 06:40 07/18/17 06:40 ekg: afib, 159 bpm. nl qtc, no ischemic changes. cxr: clear lungs stress 03/2017: baseline afib, no ischemic changes. inferior artifact. no ischemia/infarct. nl ef. echo 10/2016: nl lv/rv, mod mr, mild tr. 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 sbo: -improving, plans per gi, surgery afib -cont home dilt, bb -rate controlled now, likely elevated in setting of sbo, now improving -recurrent frequent falls. fall/bleeding risk thought to outweigh benefit of AC. con't plavix (asa allergy) monotherapy instead of AC. htn - stable pvd/AAA/+ tobacco - con't plavix. not on statin, will defer to outpatient md's. - smoking cessation
[2017-07-18] MEDS: CLOPIDOGREL BISULFATE 75 MG TABLET (FP) PO SCH (12:19)
--- NOTE | 2017-07-18 15:29 | CON.ID ---
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) Cardio/Vascular: Yes: HTN Psych: Yes: Anxiety - Past Surgical History Past Surgical History: Yes: None, Amputation (left 2nd, 3rd phalanges), Stent ( lle) - Alcohol/Substance Use Hx Alcohol Use: No History of Substance Use: reports: None - Smoking History Smoking history: Unknown if ever smoked Have you smoked in the past 12 months: Yes Aproximately how many cigarettes per day: 5 If you are a former smoker, when did you quit?: august 2016 - Social History ADL: Independent 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 [employer] History of Recent Travel: No Home Medications - Allergies Allergies/Adverse Reactions: Allergies Allergy/AdvReac Type Severity Reaction Status Date / Time aspirin Allergy Verified 07/16/17 13:21 Penicillins Allergy Verified 07/16/17 13:21 - Home Medications Home Medications: Ambulatory Orders Metoprolol Succinate [Toprol XL -] 50 mg PO DAILY tab.sr 10/30/16 Clopidogrel Bisulfate [Plavix] 75 mg PO DAILY 04/30/17 Acetaminophen [Tylenol .Regular Strength -] 650 mg PO Q6H PRN tablet 05/16/17 Carbidopa/Levodopa [Rytary ER 36.25 mg-145 mg Cap] 2 each PO BID #60 capsule.er 07/17/17 Diltiazem HCl [Cardizem Sr] 240 mg PO DAILY #30 cap.er.12h 07/17/17 Review of Systems - Review of Systems Constitutional: reports: No Symptoms Eyes: reports: No Symptoms HENT: reports: No Symptoms Neck: reports: No Symptoms Cardiovascular: reports: Palpitations Respiratory: reports: No Symptoms Gastrointestinal: reports: Abdominal Pain, Diarrhea, Other Genitourinary: reports: No Symptoms Musculoskeletal: reports: No Symptoms Integumentary: reports: No Symptoms Neurological: reports: No Symptoms Endocrine: reports: No Symptoms Hematology/Lymphatic: reports: No Symptoms Psychiatric: reports: No Symptoms Physical Exam Vital Signs: Vital Signs Temperature 98.6 F 07/18/17 11:00 Pulse Rate 144 H 07/18/17 11:00 Respiratory Rate 16 07/18/17 11:00 Blood Pressure 129/66 07/18/17 11:00 O2 Sat by Pulse Oximetry (%) 95 07/18/17 09:00 Constitutional: Yes: No Distress, Calm, Thin Eyes: Yes: Conjunctiva Clear HENT: Yes: Atraumatic, Normocephalic Neck: Yes: Supple, Trachea Midline Cardiovascular: Yes: Pulse Irregular, S1, S2 Respiratory: Yes: Regular, Poor Air Entry (bases) Gastrointestinal: Yes: Soft, Hypoactive Bowel Sounds Musculoskeletal: Yes: WNL Extremities: Yes: WNL Neurological: Yes: Alert, Oriented Psychiatric: Yes: Alert, Oriented Labs: CBC, BMP 07/18/17 06:40 07/18/17 06:40 Imaging - Results Chest X-ray: Report Reviewed, Image Reviewed X-ray: Report Reviewed, Image Reviewed Cat Scan: Report Reviewed, Image Reviewed Assessment/Plan looking at the patient and her dirrhoea and antigen positive i would at the moment hold off on starting anything as i think this is overflow dirrhoea Problem List - Problems (1) SBO (small bowel obstruction) Code(s): K56.609 - UNSP INTESTNL OBST, UNSP TO PARTIAL VERSUS COMPLETE OBST (2) RACHELLE (acute kidney injury) Code(s): N17.9 - ACUTE KIDNEY FAILURE, UNSPECIFIED (3) Atrial fibrillation with rapid ventricular response Code(s): I48.91 - UNSPECIFIED ATRIAL FIBRILLATION (4) Parkinson disease Code(s): G20 - PARKINSON'S DISEASE (5) Peripheral vascular disease Code(s): I73.9 - PERIPHERAL VASCULAR DISEASE, UNSPECIFIED (6) HTN (hypertension) Code(s): I10 - ESSENTIAL (PRIMARY) HYPERTENSION Qualifiers: Hypertension type: essential hypertension Qualified Code(s): I10 - Essential (primary) hypertension (7) Bradykinesia Code(s): R25.8 - OTHER ABNORMAL INVOLUNTARY MOVEMENTS (8) Hypophonia Code(s): R49.8 - OTHER VOICE AND RESONANCE DISORDERS (9) Hypokalemia Code(s): E87.6 - HYPOKALEMIA (10) Hypomagnesemia Code(s): E83.42 - HYPOMAGNESEMIA (11) Low TSH level Code(s): R94.6 - ABNORMAL RESULTS OF THYROID FUNCTION STUDIES (12) Diarrhea Code(s): R19.7 - DIARRHEA, UNSPECIFIED plan 1 hydration 2,high enemas 3.gi plan to see what to do 4.monitor for distension 5.if patient continues to have dirrhoea might start oral vanco
--- NOTE | 2017-07-18 17:08 | CONSULT ---
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 Found to be in rapid afib in ED which was treated with Diltiazem with control of rat. Pt was found to have low TSH during last admission and was advised to see Endocrinology as outpt which she hasn't done yet. C/O Wt loss of around 40 lbs in the last one year. Has tremors of hands. No heat or cold intolerance. Has anxiety for sometime. No family h/o thyroid disorder. 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) Cardio/Vascular: Yes: HTN Psych: Yes: Anxiety - Past Surgical History Past Surgical History: Yes: None, Amputation (left 2nd, 3rd phalanges), Stent ( lle) - Alcohol/Substance Use Hx Alcohol Use: No History of Substance Use: reports: None - Smoking History Smoking history: Unknown if ever smoked Have you smoked in the past 12 months: Yes Aproximately how many cigarettes per day: 5 If you are a former smoker, when did you quit?: august 2016 - Social History ADL: Independent 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 [employer] History of Recent Travel: No Home Medications - Allergies Allergies/Adverse Reactions: Allergies Allergy/AdvReac Type Severity Reaction Status Date / Time aspirin Allergy Verified 07/16/17 13:21 Penicillins Allergy Verified 07/16/17 13:21 - Home Medications Home Medications: Ambulatory Orders Metoprolol Succinate [Toprol XL -] 50 mg PO DAILY tab.sr 10/30/16 Clopidogrel Bisulfate [Plavix] 75 mg PO DAILY 04/30/17 Acetaminophen [Tylenol .Regular Strength -] 650 mg PO Q6H PRN tablet 05/16/17 Carbidopa/Levodopa [Rytary ER 36.25 mg-145 mg Cap] 2 each PO BID #60 capsule.er 07/17/17 Diltiazem HCl [Cardizem Sr] 240 mg PO DAILY #30 cap.er.12h 07/17/17 Family Disease History - Family Disease History Other Family History: No family h/o thyroid disorder Review of Systems - Review of Systems Constitutional: reports: Malaise, Unintentional Wgt. Loss Eyes: reports: No Symptoms HENT: reports: No Symptoms Neck: reports: No Symptoms Cardiovascular: reports: Palpitations Respiratory: reports: No Symptoms Gastrointestinal: reports: No Symptoms Genitourinary: reports: No Symptoms Musculoskeletal: reports: No Symptoms Neurological: reports: No Symptoms Hematology/Lymphatic: reports: No Symptoms Psychiatric: reports: Anxiety Physical Exam Vital Signs: Vital Signs Temperature 97.9 F 07/18/17 14:36 Pulse Rate 101 H 07/18/17 14:36 Respiratory Rate 18 07/18/17 14:36 Blood Pressure 124/66 07/18/17 14:36 O2 Sat by Pulse Oximetry (%) 95 07/18/17 09:00 Constitutional: Yes: No Distress, Calm Eyes: Yes: Conjunctiva Clear, EOM Intact HENT: Yes: Atraumatic, Normocephalic Neck: Yes: Supple, Trachea Midline, Thyromegaly (palpable on deglutition) Respiratory: Yes: Regular Gastrointestinal: Yes: Normal Bowel Sounds, Soft Musculoskeletal: Yes: WNL Extremities: Yes: Amputation (left 3rd and 4th toes) Edema: No Neurological: Yes: Alert, Oriented Labs: CBC, BMP 07/18/17 06:40 07/18/17 06:40 Assessment/Plan AP: SBO Hyperthyroidism A Fib with RPR PAD Parkinson's disease HTN Start Methimazole 10mg BID Labs for TSI and TPO Rate control as per Cardiology
[2017-07-18] MEDS: METHIMAZOLE 10 MG TABLET (FP) PO SCH (23:16)
[2017-07-19] MEDS: SODIUM CHLORIDE 1,000 ML with POTASSIUM CHLORIDE 40 MEQ IV SCH ×2 (05:58→12:45)
[2017-07-19] MEDS ORDERED: PT OWN MED DRAWER 7, Y5N ONE ×2 (09:55→13:48)
[2017-07-19] MEDS: METHIMAZOLE 10 MG TABLET (FP) PO SCH ×3 (10:01→21:35)
[2017-07-19] MEDS: CLOPIDOGREL BISULFATE 75 MG TABLET (FP) PO SCH (10:01)
[2017-07-19 10:37] LABS: BASO % 0.2 % (0-2.0); EOS % 0.6 % (0-4.5); HEMATOCRIT 33.2 % (32.4-45.2); HEMOGLOBIN 11.1 GM/dL (10.7-15.3); LYMPH % 23.1 % (8-40); MCH 27.5 pg (25.7-33.7); MCHC 33.4 g/dl (32.0-36.0); MEAN CELL VOLUME 82.4 fl (80-96); MEAN PLT VOLUME 7.9 fl (7.5-11.1); NEUT % 58.1 % (42.8-82.8); PLATELET COUNT 181 K/MM3 (134-434); RBC 4.03 M/mm3 (3.60-5.2); RDW 16.2 % (11.6-15.6); WHITE BLOOD COUNT 10.8 K/mm3 (4.0-10.0)
[2017-07-19 11:00] LABS: ANION GAP 9 (8-16); BLOOD UREA NITROGEN 9 mg/dL (7-18); CALCIUM 9.4 mg/dL (8.5-10.1); CHLORIDE 110 mmol/L (98-107); CO2 22 mmol/L (21-32); CREATININE 0.4 mg/dL (0.55-1.02); GLUCOSE,RANDOM 86 mg/dL (74-106); MAGNESIUM 1.7 mg/dL (1.8-2.4); PHOSPHOROUS 2.9 mg/dL (2.5-4.9); POTASSIUM 3.3 mmol/L (3.5-5.1); SODIUM 141 mmol/L (136-145)
--- NOTE | 2017-07-19 11:03 | PN ---
Progress Note (short form) - Note Progress Note: Feels better Denies any complaints No abd pain or NV Had BM today Vital Signs Period Temp Pulse Resp BP Sys/Watkins Pulse Ox Last 24 Hr 97.9 F-100.3 F 101-122 -18 115-137/63-77 95 PE: Aox3 HEENT: EOMI Neck: Supple, No JVD Lungs: CTA CVS: S1S2 Abd: Benign Ext: No Edema ,. amputated left 3rd and 4th toes Neuro: No focal deficit CMP Sodium 141 mmol/L (136-145) 07/19/17 10:17 Potassium 3.3 mmol/L (3.5-5.1) L 07/19/17 10:17 Chloride 110 mmol/L (98-107) H 07/19/17 10:17 Carbon Dioxide 22 mmol/L (21-32) 07/19/17 10:17 Anion Gap 9 (8-16) 07/19/17 10:17 BUN 9 mg/dL (7-18) 07/19/17 10:17 Creatinine 0.4 mg/dL (0.55-1.02) L 07/19/17 10:17 Creat Clearance w eGFR > 60 (>60) 07/17/17 06:35 Random Glucose 86 mg/dL (74-106) 07/19/17 10:17 Calcium 9.4 mg/dL (8.5-10.1) 07/19/17 10:17 Phosphorus 2.9 mg/dL (2.5-4.9) 07/19/17 10:17 Magnesium 1.7 mg/dL (1.8-2.4) L 07/19/17 10:17 Total Bilirubin 1.3 mg/dL (0.2-1.0) H 07/17/17 06:35 AST 13 U/L (15-37) L 07/17/17 06:35 ALT < 6 U/L (12-78) L 07/17/17 06:35 Alkaline Phosphatase 110 U/L (45-117) 07/17/17 06:35 Creatine Kinase 21 IU/L (26-192) L 07/16/17 13:55 Troponin I 0.02 ng/ml (0.00-0.05) 07/18/17 06:40 Total Protein 7.3 g/dl (6.4-8.2) 07/17/17 06:35 Albumin 2.8 g/dl (3.4-5.0) L 07/17/17 06:35 TSH < 0.01 uIU/ml (0.358-3.74) L 07/18/17 06:40 Free T4 5.50 ng/dl (0.76-1.46) H 07/18/17 06:40 Free T3 10.8 pg/ml (2.0-4.4) H 07/18/17 06:40 Current Medications Generic Name Dose Route Start Last Admin Trade Name Freq PRN Reason Stop Dose Admin Acetaminophen 650 mg 07/17/17 20:36 Tylenol - PO Q6H PRN PAIN LEVEL 4 - 6 Carbidopa/Levodopa 1 combo 07/17/17 13:15 07/19/17 10:01 Sinemet *Cr* 50/200 - PO 1 combo BID MELANY Administration Clopidogrel Bisulfate 75 mg 07/18/17 12:00 07/19/17 10:01 Plavix - PO 75 mg DAILY MELANY Administration Diltiazem HCl 240 mg 07/18/17 10:00 07/19/17 10:01 Cardizem Cd - PO 240 mg DAILY MELANY Administration Potassium Chloride 40 meq/ 1,020 mls @ 75 mls/hr 07/18/17 09:15 07/19/17 05: 58 Sodium Chloride IV 75 mls/hr Q13H MELANY Administration Metronidazole 500 mg in 100 mls @ 100 mls/hr 07/18/17 22:45 07/19/17 10:02 Flagyl 500mg Premixed Ivpb - IVPB 100 mls/hr Q8H-IV MELANY Administration Methimazole 10 mg 07/18/17 17:30 07/19/17 10:42 Tapazole - PO Not Given BID MELANY Metoprolol Succinate 50 mg 07/17/17 10:00 07/19/17 10:01 Toprol Xl - PO 50 mg DAILY MELANY Administration Ondansetron HCl 4 mg 07/16/17 18:56 07/18/17 11:24 Zofran Injection IVPUSH 4 mg Q6H PRN Administration NAUSEA AP: SBO Hyperthyroidism A Fib with RPR PAD Parkinson's disease HTN Continue Methimazole 10mg BID Labs for TSI and TPO pending TFT tomorrow Rate control as per Cardiology
--- NOTE | 2017-07-19 11:22 | PN ---
Progress Note (short form) - Note Progress Note: s: no cp sob palps dizzy o: Vital Signs Period Temp Pulse Resp BP Sys/Watkins Pulse Ox Last 24 Hr 97.9 F-100.3 F 101-122 18-18 115-137/63-77 95 nad, calm, cachectic no jvd irregularly, irregular nl s1s2 no mrg cta bl poor eff aaox3 no le e/c/c abd nt nd pos bs no jaundice diaphoresis Current Medications Generic Name Dose Route Start Last Admin Trade Name Freq PRN Reason Stop Dose Admin Acetaminophen 650 mg 07/17/17 20:36 Tylenol - PO Q6H PRN PAIN LEVEL 4 - 6 Carbidopa/Levodopa 1 combo 07/17/17 13:15 07/19/17 10:01 Sinemet *Cr* 50/200 - PO 1 combo BID MELANY Administration Clopidogrel Bisulfate 75 mg 07/18/17 12:00 07/19/17 10:01 Plavix - PO 75 mg DAILY MELANY Administration Diltiazem HCl 240 mg 07/18/17 10:00 07/19/17 10:01 Cardizem Cd - PO 240 mg DAILY MELANY Administration Potassium Chloride 40 meq/ 1,020 mls @ 75 mls/hr 07/18/17 09:15 07/19/17 05: 58 Sodium Chloride IV 75 mls/hr Q13H MELANY Administration Metronidazole 500 mg in 100 mls @ 100 mls/hr 07/18/17 22:45 07/19/17 10:02 Flagyl 500mg Premixed Ivpb - IVPB 100 mls/hr Q8H-IV MELANY Administration Methimazole 10 mg 07/18/17 17:30 07/19/17 10:42 Tapazole - PO Not Given BID MELANY Metoprolol Succinate 50 mg 07/17/17 10:00 07/19/17 10:01 Toprol Xl - PO 50 mg DAILY MELANY Administration Ondansetron HCl 4 mg 07/16/17 18:56 07/18/17 11:24 Zofran Injection IVPUSH 4 mg Q6H PRN Administration NAUSEA CBC, BMP 07/19/17 10:17 07/19/17 10:17 ekg: afib, 159 bpm. nl qtc, no ischemic changes. cxr: clear lungs stress 03/2017: baseline afib, no ischemic changes. inferior artifact. no ischemia/infarct. nl ef. echo 10/2016: nl lv/rv, mod mr, mild tr. 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 sbo: -plans per gi, surgery afib -cont home dilt, bb -rate likely elevated in setting of sbo, if persistently >120 can increase toprol to 50 bid from qd -recurrent frequent falls. fall/bleeding risk thought to outweigh benefit of AC. con't plavix (asa allergy) monotherapy instead of AC. htn - stable pvd/AAA/+ tobacco - con't plavix. not on statin, will defer to outpatient md's. - smoking cessation
--- NOTE | 2017-07-19 13:22 | PN ---
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 Godwin Bueno MD FACS
[2017-07-19] MEDS ORDERED: MAGNESIUM SULF 50% (8.12 MEQ/2 ML-1 GM VIAL) IVPB ONE (13:59)
[2017-07-19] MEDS ORDERED: KCL 10 MEQ IVPB 10 MEQ/100 ML INFUS.BAG IVPB SCH (14:00)
--- NOTE | 2017-07-19 14:01 | PN ---
Progress Note (short form) - Note Progress Note: Medical coverage for Dr. Serra Subjective: The patient was seen and examined at the bedside, she reports she would like to eat. She states she had a bowel movement this morning and is passing gas. She states she vomited twice overnight but that she felt better after vomiting. Discussed with Dr. Bueno, will start clear liquid diet and monitor for nausea/ vomiting Current Medications Generic Name Dose Route Start Last Admin Trade Name Freq PRN Reason Stop Dose Admin Acetaminophen 650 mg 07/17/17 20:36 Tylenol - PO Q6H PRN PAIN LEVEL 4 - 6 Carbidopa/Levodopa 1 combo 07/17/17 13:15 07/19/17 10:01 Sinemet *Cr* 50/200 - PO 1 combo BID MELANY Administration Clopidogrel Bisulfate 75 mg 07/18/17 12:00 07/19/17 10:01 Plavix - PO 75 mg DAILY MELANY Administration Diltiazem HCl 240 mg 07/18/17 10:00 07/19/17 10:01 Cardizem Cd - PO 240 mg DAILY MELANY Administration Potassium Chloride 40 meq/ 1,020 mls @ 75 mls/hr 07/18/17 09:15 07/19/17 12: 45 Sodium Chloride IV Not Given Q13H MELANY Metronidazole 500 mg in 100 mls @ 100 mls/hr 07/18/17 22:45 07/19/17 10:02 Flagyl 500mg Premixed Ivpb - IVPB 100 mls/hr Q8H-IV MELANY Administration Methimazole 10 mg 07/18/17 17:30 07/19/17 10:42 Tapazole - PO Not Given BID MELANY Metoprolol Succinate 50 mg 07/17/17 10:00 07/19/17 10:01 Toprol Xl - PO 50 mg DAILY MELANY Administration Ondansetron HCl 4 mg 07/16/17 18:56 07/18/17 11:24 Zofran Injection IVPUSH 4 mg Q6H PRN Administration NAUSEA Objective: Vital Signs Period Temp Pulse Resp BP Sys/Watkins Pulse Ox Last 24 Hr 97.9 F-100.3 F 101-148 18-18 115-137/63-77 95 Physical Exam: General: NAD Lungs: CTA bilaterally Heart: Irregular pulse Abd: Soft, non-tender, non-distended. Normoactive bowel sounds Ext: Thin, warm CBCD WBC 10.8 K/mm3 (4.0-10.0) H D 07/19/17 10:17 RBC 4.03 M/mm3 (3.60-5.2) 07/19/17 10:17 Hgb 11.1 GM/dL (10.7-15.3) 07/19/17 10:17 Hct 33.2 % (32.4-45.2) 07/19/17 10:17 MCV 82.4 fl (80-96) 07/19/17 10:17 MCHC 33.4 g/dl (32.0-36.0) 07/19/17 10:17 RDW 16.2 % (11.6-15.6) H 07/19/17 10:17 Plt Count 181 K/MM3 (134-434) 07/19/17 10:17 MPV 7.9 fl (7.5-11.1) 07/19/17 10:17 CMP Sodium 141 mmol/L (136-145) 07/19/17 10:17 Potassium 3.3 mmol/L (3.5-5.1) L 07/19/17 10:17 Chloride 110 mmol/L (98-107) H 07/19/17 10:17 Carbon Dioxide 22 mmol/L (21-32) 07/19/17 10:17 Anion Gap 9 (8-16) 07/19/17 10:17 BUN 9 mg/dL (7-18) 07/19/17 10:17 Creatinine 0.4 mg/dL (0.55-1.02) L 07/19/17 10:17 Creat Clearance w eGFR > 60 (>60) 07/17/17 06:35 Random Glucose 86 mg/dL (74-106) 07/19/17 10:17 Calcium 9.4 mg/dL (8.5-10.1) 07/19/17 10:17 Total Bilirubin 1.3 mg/dL (0.2-1.0) H 07/17/17 06:35 AST 13 U/L (15-37) L 07/17/17 06:35 ALT < 6 U/L (12-78) L 07/17/17 06:35 Alkaline Phosphatase 110 U/L (45-117) 07/17/17 06:35 Total Protein 7.3 g/dl (6.4-8.2) 07/17/17 06:35 Albumin 2.8 g/dl (3.4-5.0) L 07/17/17 06:35 CARDIAC ENZYMES Creatine Kinase 21 IU/L (26-192) L 07/16/17 13:55 Troponin I 0.02 ng/ml (0.00-0.05) 07/18/17 06:40 Microbiology 07/18/17 00:00 Stool Clostridium difficile Antigen (MARICARMEN) - Final 07/18/17 00:00 Stool Clostridium difficile Toxin Assay - Final 07/16/17 16:16 Urine - Urine Clean Catch Urine Culture - Final Contaminated: Please Repeat Assessment: This is a 72 year old female with PMHx of a.fib on diltiazem, parkinson's disease, PVD s/p right popliteal stent, left toe amputations, AAA ( 4.7cm), 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 - Patient with vomiting 600ml overnight states she feels better now and is hungry. She reports passing gas and having a bowel movement this morning - Discussed with surgery, abd x-ray yesterday with resolving SBO vs. partial SBO. Recommendation to start feedings - CL diet and monitor closely for nausea/vomiting - Appreciate surgery consult 2) C.diff Ag positive - Continue to monitor off abx per ID - Appreciate ID consult 3) A.fib with RVR - Continue diltiazem - Continue Toprol XL - If rate persistently over 120, can increase Toprol XL to 50mg bid - Appreciate cardiology consult 4) PVD - S/p angiogram and stenting - Allergy to ASA - Continue Plavix 5) Parkinson's disease - Chronic dystonia - Continue home medications 6) Hyperthyroidism - Started on Tapazole 10mg po bid - Will need to have TSH retested in 4 weeks as outpatient 7) F/E/N: - Hypomagnesemia: replete - Hypokalemia: replete - CL diet 8) Prophylaxis: - On Plavix 9) Dispo: - Requires continued inpatient care CODE STATUS: FULL CODE Visit type - Emergency Visit Emergency Visit: Yes ED Registration Date: 07/16/17 Care time: The patient presented to the Emergency Department on the above date and was hospitalized for further evaluation of their emergent condition. - New Patient This patient is new to me today: Yes Date on this admission: 07/19/17 - Critical Care Critical Care patient: No
[2017-07-19] MEDS ORDERED: MAGNESIUM 1GM/D5W - 1 GM/100 ML IVPB IVPB ONE (14:15)
[2017-07-19] MEDS ORDERED: POTASSIUM CHLORIDE 20 MEQ in SODIUM CHLORIDE 250 ML IVPB ONE (14:45)
--- NOTE | 2017-07-19 15:08 | PN ---
Progress Note, Physician History of Present Illness: Pt alert, states she feels better. States she had 2 loose BMs today, no abd pain. Denies vomiting? Febrile to 100.3F last night, wbc mildly elevated. - Current Medication List Current Medications: Active Medications Acetaminophen (Tylenol -) 650 mg PO Q6H PRN PRN Reason: PAIN LEVEL 4 - 6 Carbidopa/Levodopa (Sinemet *Cr* 50/200 -) 1 combo PO BID [facility] Last Admin: 07/19/17 10:01 Dose: 1 combo Clopidogrel Bisulfate (Plavix -) 75 mg PO DAILY [facility] Last Admin: 07/19/17 10:01 Dose: 75 mg Diltiazem HCl (Cardizem Cd -) 240 mg PO DAILY [facility] Last Admin: 07/19/17 10:01 Dose: 240 mg Potassium Chloride 40 meq/ (Sodium Chloride) 1,020 mls @ 75 mls/hr IV Q13H [facility] Last Admin: 07/19/17 12:45 Dose: Not Given Metronidazole (Flagyl 500mg Premixed Ivpb -) 500 mg in 100 mls @ 100 mls/hr IVPB Q8H-IV [facility] Last Admin: 07/19/17 10:02 Dose: 100 mls/hr Potassium Chloride 20 meq/ (Sodium Chloride) 260 mls @ 130 mls/hr IVPB ONCE ONE Stop: 07/19/17 16:44 Methimazole (Tapazole -) 10 mg PO BID [facility] Last Admin: 07/19/17 10:42 Dose: Not Given Metoprolol Succinate (Toprol Xl -) 50 mg PO DAILY [facility] Last Admin: 07/19/17 10:01 Dose: 50 mg Ondansetron HCl (Zofran Injection) 4 mg IVPUSH Q6H PRN PRN Reason: NAUSEA Last Admin: 07/18/17 11:24 Dose: 4 mg - Objective Vital Signs: Vital Signs Temperature 98.5 F 07/19/17 14:38 Pulse Rate 146 H 07/19/17 14:38 Respiratory Rate 18 07/19/17 08:47 Blood Pressure 134/65 07/19/17 14:38 O2 Sat by Pulse Oximetry (%) 95 07/18/17 21:00 Constitutional: Yes: No Distress Neck: Yes: Supple Cardiovascular: Yes: Pulse Irregular Respiratory: Yes: Regular Gastrointestinal: Yes: Normal Bowel Sounds, Soft Genitourinary: Yes: WNL Extremities: Yes: WNL Neurological: Yes: Alert Labs: CBC, BMP 07/19/17 10:17 07/19/17 10:17 Microbiology 07/18/17 00:00 Stool Clostridium difficile Antigen (MARICARMEN) - Final 07/18/17 00:00 Stool Clostridium difficile Toxin Assay - Final 07/16/17 16:16 Urine - Urine Clean Catch Urine Culture - Final Contaminated: Please Repeat - ....Imaging X-ray: Report Reviewed Problem List - Problems (1) Diarrhea Code(s): R19.7 - DIARRHEA, UNSPECIFIED (2) SBO (small bowel obstruction) Code(s): K56.609 - UNSP INTESTNL OBST, UNSP TO PARTIAL VERSUS COMPLETE OBST (3) Aneurysm, abdominal aortic Code(s): I71.4 - ABDOMINAL AORTIC ANEURYSM, WITHOUT RUPTURE Qualifiers: Presence of rupture: without rupture Qualified Code(s): I71.4 - Abdominal aortic aneurysm, without rupture (4) Atrial fibrillation with rapid ventricular response Code(s): I48.91 - UNSPECIFIED ATRIAL FIBRILLATION (5) Leukocytosis Code(s): D72.829 - ELEVATED WHITE BLOOD CELL COUNT, UNSPECIFIED (6) Peripheral vascular disease Code(s): I73.9 - PERIPHERAL VASCULAR DISEASE, UNSPECIFIED (7) HTN (hypertension) Code(s): I10 - ESSENTIAL (PRIMARY) HYPERTENSION Qualifiers: Hypertension type: essential hypertension Qualified Code(s): I10 - Essential (primary) hypertension Assessment/Plan SBO vs partial SBO - improving Diarrhea - C. diff Ag +, CDT negative Fever/Mild leukocytosis - started empirically on Flagyl IV - monitor wbc/temp trend - will consider start Vancomycin if tolerates po continue monitor closely
[2017-07-19] MEDS: ONDANSETRON 4 MG/2 ML VIAL IVPUSH PRN (18:11)
[2017-07-20] MEDS: ONDANSETRON 4 MG/2 ML VIAL IVPUSH PRN ×2 (02:24→09:53)
[2017-07-20] MEDS: SODIUM CHLORIDE 1,000 ML with POTASSIUM CHLORIDE 40 MEQ IV SCH ×2 (05:51→23:39)
[2017-07-20 08:25] LABS: BASO % 0.1 % (0-2.0); EOS % 0.8 % (0-4.5); HEMATOCRIT 33.7 % (32.4-45.2); LYMPH % 15.8 % (8-40); MCH 27.1 pg (25.7-33.7); MCHC 32.7 g/dl (32.0-36.0); MEAN PLT VOLUME 7.9 fl (7.5-11.1); NEUT % 65.3 % (42.8-82.8); PLATELET COUNT 179 K/MM3 (134-434); RBC 4.06 M/mm3 (3.60-5.2); RDW 16.4 % (11.6-15.6); WHITE BLOOD COUNT 11.7 K/mm3 (4.0-10.0)
[2017-07-20 08:44] LABS: ALBUMIN 2.6 g/dl (3.4-5.0); ANION GAP 10 (8-16); BLOOD UREA NITROGEN 7 mg/dL (7-18); CALCIUM 9.4 mg/dL (8.5-10.1); CHLORIDE 112 mmol/L (98-107); CO2 22 mmol/L (21-32); CREATININE 0.5 mg/dL (0.55-1.02); GLUCOSE,RANDOM 100 mg/dL (74-106); MAGNESIUM 1.5 mg/dL (1.8-2.4); POTASSIUM 3.7 mmol/L (3.5-5.1); SGOT/AST 11 U/L (15-37); SGPT/ALT < 6 U/L (12-78); SODIUM 144 mmol/L (136-145); TOT PROT 7.5 g/dl (6.4-8.2)
[2017-07-20 08:45] LABS: ALK PHOS 97 U/L (45-117)
[2017-07-20] MEDS ORDERED: MAGNESIUM SULF 50% (8.12 MEQ/2 ML-1 GM VIAL) IVPB ONE (09:19)
[2017-07-20] MEDS ORDERED: PT OWN MED DRAWER 7, Y5N ONE (09:44)
[2017-07-20] MEDS: CLOPIDOGREL BISULFATE 75 MG TABLET (FP) PO SCH (09:53)
[2017-07-20] MEDS: METHIMAZOLE 10 MG TABLET (FP) PO SCH ×3 (09:54→23:39)
--- NOTE | 2017-07-20 10:31 | PN ---
Progress Note (short form) - Note Progress Note: s: no cp sob palps dizzy; now with cdiff o: Vital Signs Period Temp Pulse Resp BP Sys/Watkins Pulse Ox Last 24 Hr 97.7 F-98.8 F 96-148 20-20 129-134/63-75 95 nad, calm, cachectic no jvd irregularly, irregular nl s1s2 no mrg cta bl poor eff aaox3 no le e/c/c abd nt nd pos bs no jaundice diaphoresis Current Medications Generic Name Dose Route Start Last Admin Trade Name Freq PRN Reason Stop Dose Admin Acetaminophen 650 mg 07/17/17 20:36 Tylenol - PO Q6H PRN PAIN LEVEL 4 - 6 Carbidopa/Levodopa 1 combo 07/17/17 13:15 07/20/17 09:54 Sinemet *Cr* 50/200 - PO 1 combo BID MELANY Administration Clopidogrel Bisulfate 75 mg 07/18/17 12:00 07/20/17 09:53 Plavix - PO 75 mg DAILY [facility] Administration Diltiazem HCl 360 mg 07/20/17 10:01 07/20/17 10:16 Cardizem Cd - PO 360 mg DAILY [facility] Administration Potassium Chloride 40 meq/ 1,020 mls @ 75 mls/hr 07/18/17 09:15 07/20/17 05: 51 Sodium Chloride IV 75 mls/hr Q13H M[facility]ANY Administration Metronidazole 500 mg in 100 mls @ 100 mls/hr 07/18/17 22:45 07/20/17 09:50 Flagyl 500mg Premixed Ivpb - IVPB 100 mls/hr Q8H-IV [facility] Administration Magnesium Sulfate 2 gm in 50 mls @ 100 mls/hr 07/20/17 11:00 Magnesium Sulf 2 G/50 Ml Bag IVPB 07/20/17 11:29 ONCE ONE Methimazole 10 mg 07/18/17 17:30 07/20/17 09:54 Tapazole - PO 10 mg BID M[facility]ANY Administration Metoprolol Succinate 50 mg 07/17/17 10:00 07/20/17 09:53 Toprol Xl - PO 50 mg DAILY [facility] Administration Ondansetron HCl 4 mg 07/16/17 18:56 07/20/17 09:53 Zofran Injection IVPUSH 4 mg Q6H PRN Administration NAUSEA CBC, BMP 07/20/17 07:50 07/20/17 07:50 ekg: afib, 159 bpm. nl qtc, no ischemic changes. cxr: clear lungs stress 03/2017: baseline afib, no ischemic changes. inferior artifact. no ischemia/infarct. nl ef. echo 10/2016: nl lv/rv, mod mr, mild tr. 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 sbo, cdiff: -on abx -plans per gi, surgery afib -cont home dilt, bb -rate likely elevated in setting of sbo/cdiff, will increase dilt to 360 qd. -recurrent frequent falls. fall/bleeding risk thought to outweigh benefit of AC. con't plavix (asa allergy) monotherapy instead of AC. htn - stable pvd/AAA/+ tobacco - con't plavix. not on statin, will defer to outpatient md's. - smoking cessation
[2017-07-20] MEDS ORDERED: MAGNESIUM SULFATE IN WATER 2 GM/50 ML IVPB IVPB ONE (11:00)
--- NOTE | 2017-07-20 11:24 | PN ---
Progress Note (short form) - Note Progress Note: Medical coverage for Dr. Serra Subjective: The patient was seen and examined at the bedside, per RN, patient vomited last night and this morning. She vomited after eating jello and broth. Called and discussed with Dr. Bueno, will make NPO again. F/u abdominal FUA Patient started on IV flagyl yesterday Current Medications Generic Name Dose Route Start Last Admin Trade Name Freq PRN Reason Stop Dose Admin Acetaminophen 650 mg 07/17/17 20:36 Tylenol - PO Q6H PRN PAIN LEVEL 4 - 6 Carbidopa/Levodopa 1 combo 07/17/17 13:15 07/20/17 09:54 Sinemet *Cr* 50/200 - PO 1 combo BID [facility] Administration Clopidogrel Bisulfate 75 mg 07/18/17 12:00 07/20/17 09:53 Plavix - PO 75 mg DAILY [facility] Administration Diltiazem HCl 360 mg 07/20/17 10:01 07/20/17 10:16 Cardizem Cd - PO 360 mg DAILY [facility] Administration Potassium Chloride 40 meq/ 1,020 mls @ 75 mls/hr 07/18/17 09:15 07/20/17 05: 51 Sodium Chloride IV 75 mls/hr Q13H [facility] Administration Metronidazole 500 mg in 100 mls @ 100 mls/hr 07/18/17 22:45 07/20/17 09:50 Flagyl 500mg Premixed Ivpb - IVPB 100 mls/hr Q8H-IV [facility] Administration Magnesium Sulfate 2 gm in 50 mls @ 100 mls/hr 07/20/17 11:00 Magnesium Sulf 2 G/50 Ml Bag IVPB 07/20/17 11:29 ONCE ONE Methimazole 10 mg 07/18/17 17:30 07/20/17 09:54 Tapazole - PO 10 mg BID [facility] Administration Metoprolol Succinate 50 mg 07/17/17 10:00 07/20/17 09:53 Toprol Xl - PO 50 mg DAILY [facility] Administration Ondansetron HCl 4 mg 07/16/17 18:56 07/20/17 09:53 Zofran Injection IVPUSH 4 mg Q6H PRN Administration NAUSEA Objective: Vital Signs Period Temp Pulse Resp BP Sys/Watkins Pulse Ox Last 24 Hr 97.7 F-98.8 F 96-148 20-20 129-134/63-75 95 Physical Exam: General: NAD Lungs: CTA bilaterally Heart: Irregular pulse Abd: Soft, non-tender, non-distended. Normoactive bowel sounds Ext: Thin, warm CBCD WBC 11.7 K/mm3 (4.0-10.0) H 07/20/17 07:50 RBC 4.06 M/mm3 (3.60-5.2) 07/20/17 07:50 Hgb 11.0 GM/dL (10.7-15.3) 07/20/17 07:50 Hct 33.7 % (32.4-45.2) 07/20/17 07:50 MCV 83.0 fl (80-96) 07/20/17 07:50 MCHC 32.7 g/dl (32.0-36.0) 07/20/17 07:50 RDW 16.4 % (11.6-15.6) H 07/20/17 07:50 Plt Count 179 K/MM3 (134-434) 07/20/17 07:50 MPV 7.9 fl (7.5-11.1) 07/20/17 07:50 CMP Sodium 144 mmol/L (136-145) 07/20/17 07:50 Potassium 3.7 mmol/L (3.5-5.1) 07/20/17 07:50 Chloride 112 mmol/L (98-107) H 07/20/17 07:50 Carbon Dioxide 22 mmol/L (21-32) 07/20/17 07:50 Anion Gap 10 (8-16) 07/20/17 07:50 BUN 7 mg/dL (7-18) 07/20/17 07:50 Creatinine 0.5 mg/dL (0.55-1.02) L 07/20/17 07:50 Creat Clearance w eGFR > 60 (>60) 07/20/17 07:50 Random Glucose 100 mg/dL (74-106) 07/20/17 07:50 Calcium 9.4 mg/dL (8.5-10.1) 07/20/17 07:50 Total Bilirubin 1.0 mg/dL (0.2-1.0) D 07/20/17 07:50 AST 11 U/L (15-37) L 07/20/17 07:50 ALT < 6 U/L (12-78) L 07/20/17 07:50 Alkaline Phosphatase 97 U/L (45-117) 07/20/17 07:50 Total Protein 7.5 g/dl (6.4-8.2) 07/20/17 07:50 Albumin 2.6 g/dl (3.4-5.0) L 07/20/17 07:50 CARDIAC ENZYMES Creatine Kinase 21 IU/L (26-192) L 07/16/17 13:55 Troponin I 0.02 ng/ml (0.00-0.05) 07/18/17 06:40 Microbiology 07/18/17 00:00 Stool Clostridium difficile Antigen (MARICARMEN) - Final 07/18/17 00:00 Stool Clostridium difficile Toxin Assay - Final 07/16/17 16:16 Urine - Urine Clean Catch Urine Culture - Final Contaminated: Please Repeat Assessment: This is a 72 year old female with PMHx of a.fib on diltiazem, parkinson's disease, PVD s/p right popliteal stent, left toe amputations, AAA ( 4.7cm), 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 Bueno 2) C.diff Ag positive - Tmax 100.3 on 07/18, started on IV flagyl yesterday. Can add po vanco once patient is tolerating oral diet - Appreciate ID consult 3) A.fib with RVR - Diltiazem increased to 360mg po daily for rate control (patient already took dose this morning) - Not on anticoagulation as patient is a high risk for falls and thought that risks outweigh benefits per cardiology - Appreciate cardiology consult 4) PVD - S/p angiogram and stenting - Allergy to ASA - Continue Plavix 5) Parkinson's disease - Chronic dystonia - Continue home medications 6) Hyperthyroidism - Continue Tapazole 10mg po bid - Will need to have TSH retested in 4 weeks as outpatient 7) F/E/N: - Hypomagnesemia: replete - Hypokalemia: resolved - CL diet 8) Prophylaxis: - On Plavix 9) Dispo: - Requires continued inpatient care CODE STATUS: FULL CODE Visit type - Emergency Visit Emergency Visit: Yes ED Registration Date: 07/16/17 Care time: The patient presented to the Emergency Department on the above date and was hospitalized for further evaluation of their emergent condition. - New Patient This patient is new to me today: No - Critical Care Critical Care patient: No
--- NOTE | 2017-07-20 14:13 | PN ---
Progress Note (short form) - Note Progress Note: Vomited 3 times today NPO now Vital Signs Period Temp Pulse Resp BP Sys/Watkins Pulse Ox Last 24 Hr 97.7 F-98.8 F 96-146 18-20 129-134/63-75 95 PE: Aox3 HEENT: EOMI Neck: Supple, No JVD Lungs: CTA CVS: S1S2 Abd: Benign Ext: No Edema ,. amputated left 3rd and 4th toes Neuro: No focal deficit CMP Sodium 144 mmol/L (136-145) 07/20/17 07:50 Potassium 3.7 mmol/L (3.5-5.1) 07/20/17 07:50 Chloride 112 mmol/L (98-107) H 07/20/17 07:50 Carbon Dioxide 22 mmol/L (21-32) 07/20/17 07:50 Anion Gap 10 (8-16) 07/20/17 07:50 BUN 7 mg/dL (7-18) 07/20/17 07:50 Creatinine 0.5 mg/dL (0.55-1.02) L 07/20/17 07:50 Creat Clearance w eGFR > 60 (>60) 07/20/17 07:50 Random Glucose 100 mg/dL (74-106) 07/20/17 07:50 Calcium 9.4 mg/dL (8.5-10.1) 07/20/17 07:50 Phosphorus 2.9 mg/dL (2.5-4.9) 07/19/17 10:17 Magnesium 1.5 mg/dL (1.8-2.4) L 07/20/17 07:50 Total Bilirubin 1.0 mg/dL (0.2-1.0) D 07/20/17 07:50 AST 11 U/L (15-37) L 07/20/17 07:50 ALT < 6 U/L (12-78) L 07/20/17 07:50 Alkaline Phosphatase 97 U/L (45-117) 07/20/17 07:50 Creatine Kinase 21 IU/L (26-192) L 07/16/17 13:55 Troponin I 0.02 ng/ml (0.00-0.05) 07/18/17 06:40 Total Protein 7.5 g/dl (6.4-8.2) 07/20/17 07:50 Albumin 2.6 g/dl (3.4-5.0) L 07/20/17 07:50 TSH < 0.01 uIU/ml (0.358-3.74) L 07/18/17 06:40 Free T4 6.98 ng/dl (0.76-1.46) H 07/20/17 07:50 Free T3 10.8 pg/ml (2.0-4.4) H 07/18/17 06:40 Current Medications Generic Name Dose Route Start Last Admin Trade Name Freq PRN Reason Stop Dose Admin Acetaminophen 650 mg 07/17/17 20:36 Tylenol - PO Q6H PRN PAIN LEVEL 4 - 6 Carbidopa/Levodopa 1 combo 07/17/17 13:15 07/20/17 09:54 Sinemet *Cr* 50/200 - PO 1 combo BID MELANY Administration Clopidogrel Bisulfate 75 mg 07/18/17 12:00 07/20/17 09:53 Plavix - PO 75 mg DAILY [facility] Administration Diltiazem HCl 360 mg 07/20/17 10:01 07/20/17 10:16 Cardizem Cd - PO 360 mg DAILY [facility] Administration Potassium Chloride 40 meq/ 1,020 mls @ 75 mls/hr 07/18/17 09:15 07/20/17 05: 51 Sodium Chloride IV 75 mls/hr Q13H [facility]ANY Administration Metronidazole 500 mg in 100 mls @ 100 mls/hr 07/18/17 22:45 07/20/17 09:50 Flagyl 500mg Premixed Ivpb - IVPB 100 mls/hr Q8H-IV [facility] Administration Methimazole 10 mg 07/18/17 17:30 07/20/17 09:54 Tapazole - PO 10 mg BID MELANY Administration Metoprolol Succinate 50 mg 07/17/17 10:00 07/20/17 09:53 Toprol Xl - PO 50 mg DAILY [facility] Administration Ondansetron HCl 4 mg 07/16/17 18:56 07/20/17 09:53 Zofran Injection IVPUSH 4 mg Q6H PRN Administration NAUSEA AP: SBO Hyperthyroidism A Fib with RPR PAD Parkinson's disease HTN Increase Methimazole 10mg 2 tabs BID, Labs for TSI and TPO pending FT4 6.98 today Rate control as per Cardiology
--- NOTE | 2017-07-20 15:08 | PN ---
Progress Note, Physician History of Present Illness: Pt with copious amounts of green vomitus. Now NPO. Had 2 BMs today but denies any abd pain. Remains afebrile. - Current Medication List Current Medications: Active Medications Acetaminophen (Tylenol -) 650 mg PO Q6H PRN PRN Reason: PAIN LEVEL 4 - 6 Carbidopa/Levodopa (Sinemet *Cr* 50/200 -) 1 combo PO BID [facility] Last Admin: 07/20/17 09:54 Dose: 1 combo Clopidogrel Bisulfate (Plavix -) 75 mg PO DAILY [facility] Last Admin: 07/20/17 09:53 Dose: 75 mg Diltiazem HCl (Cardizem Cd -) 360 mg PO DAILY [facility] Last Admin: 07/20/17 10:16 Dose: 360 mg Potassium Chloride 40 meq/ (Sodium Chloride) 1,020 mls @ 75 mls/hr IV Q13H [facility] Last Admin: 07/20/17 05:51 Dose: 75 mls/hr Metronidazole (Flagyl 500mg Premixed Ivpb -) 500 mg in 100 mls @ 100 mls/hr IVPB Q8H-IV [facility] Last Admin: 07/20/17 09:50 Dose: 100 mls/hr Methimazole (Tapazole -) 20 mg PO BID [facility] Metoprolol Succinate (Toprol Xl -) 50 mg PO DAILY [facility] Last Admin: 07/20/17 09:53 Dose: 50 mg Ondansetron HCl (Zofran Injection) 4 mg IVPUSH Q6H PRN PRN Reason: NAUSEA Last Admin: 07/20/17 09:53 Dose: 4 mg - Objective Vital Signs: Vital Signs Temperature 97.8 F 07/20/17 14:35 Pulse Rate 122 H 07/20/17 14:35 Respiratory Rate 18 07/20/17 10:00 Blood Pressure 142/79 07/20/17 14:35 O2 Sat by Pulse Oximetry (%) 95 07/19/17 21:00 Constitutional: Yes: No Distress Neck: Yes: Supple Cardiovascular: Yes: Pulse Irregular Respiratory: Yes: Regular Gastrointestinal: Yes: Normal Bowel Sounds, Soft Genitourinary: Yes: WNL Neurological: Yes: Alert, Oriented Labs: CBC, BMP 07/20/17 07:50 07/20/17 07:50 Microbiology 07/18/17 00:00 Stool Clostridium difficile Antigen (MARICARMEN) - Final 07/18/17 00:00 Stool Clostridium difficile Toxin Assay - Final 07/16/17 16:16 Urine - Urine Clean Catch Urine Culture - Final Contaminated: Please Repeat Problem List - Problems (1) Diarrhea Code(s): R19.7 - DIARRHEA, UNSPECIFIED (2) SBO (small bowel obstruction) Code(s): K56.609 - UNSP INTESTNL OBST, UNSP TO PARTIAL VERSUS COMPLETE OBST (3) Aneurysm, abdominal aortic Code(s): I71.4 - ABDOMINAL AORTIC ANEURYSM, WITHOUT RUPTURE Qualifiers: Presence of rupture: without rupture Qualified Code(s): I71.4 - Abdominal aortic aneurysm, without rupture (4) Atrial fibrillation with rapid ventricular response Code(s): I48.91 - UNSPECIFIED ATRIAL FIBRILLATION (5) Leukocytosis Code(s): D72.829 - ELEVATED WHITE BLOOD CELL COUNT, UNSPECIFIED (6) Peripheral vascular disease Code(s): I73.9 - PERIPHERAL VASCULAR DISEASE, UNSPECIFIED (7) HTN (hypertension) Code(s): I10 - ESSENTIAL (PRIMARY) HYPERTENSION Qualifiers: Hypertension type: essential hypertension Qualified Code(s): I10 - Essential (primary) hypertension Assessment/Plan SBO - pt with vomiting, ubale to tolerate po Diarrhea - CDT negative, Ag+ - NPO - no abd pain, 2 loose BMs today - on Flagyl IV for now - monitor wbc/temp trend - will consider start Vancomycin if vomiting resolves continue monitor closely
[2017-07-21] MEDS: SODIUM CHLORIDE 1,000 ML with POTASSIUM CHLORIDE 40 MEQ IV SCH (01:08)
[2017-07-21 07:37] LABS: BASO % 0.2 % (0-2.0); EOS % 0.5 % (0-4.5); HEMATOCRIT 33.7 % (32.4-45.2); HEMOGLOBIN 10.9 GM/dL (10.7-15.3); LYMPH % 15.1 % (8-40); MCHC 32.3 g/dl (32.0-36.0); MEAN CELL VOLUME 83.6 fl (80-96); MEAN PLT VOLUME 8.1 fl (7.5-11.1); MONO % 11.7 % (3.8-10.2); NEUT % 72.5 % (42.8-82.8); PLATELET COUNT 159 K/MM3 (134-434); RBC 4.03 M/mm3 (3.60-5.2); RDW 16.3 % (11.6-15.6); WHITE BLOOD COUNT 11.2 K/mm3 (4.0-10.0)
[2017-07-21 07:58] LABS: ALBUMIN 2.4 g/dl (3.4-5.0); ANION GAP 10 (8-16); BLOOD UREA NITROGEN 5 mg/dL (7-18); CHLORIDE 116 mmol/L (98-107); CO2 21 mmol/L (21-32); CREATININE 0.4 mg/dL (0.55-1.02); GLUCOSE,RANDOM 80 mg/dL (74-106); MAGNESIUM 1.5 mg/dL (1.8-2.4); POTASSIUM 3.4 mmol/L (3.5-5.1); SGOT/AST 9 U/L (15-37); SGPT/ALT < 6 U/L (12-78); SODIUM 147 mmol/L (136-145)
[2017-07-21 08:00] LABS: ALK PHOS 85 U/L (45-117); BILIRUBIN,TOTAL 0.8 mg/dL (0.2-1.0); TOT PROT 6.7 g/dl (6.4-8.2)
[2017-07-21] MEDS ORDERED: MAGNESIUM SULF 50% (8.12 MEQ/2 ML-1 GM VIAL) IVPB ONE (09:09)
[2017-07-21] MEDS ORDERED: KCL 10 MEQ IVPB 10 MEQ/100 ML INFUS.BAG IVPB SCH (09:15)
[2017-07-21] MEDS ORDERED: POTASSIUM CHLORIDE 30 MEQ in SODIUM CHLORIDE 300 ML IVPB ONE (09:45)
[2017-07-21] MEDS ORDERED: POTASSIUM CHLORIDE 20 MEQ in SODIUM CHLORIDE 250 ML IVPB ONE (09:45)
[2017-07-21] MEDS ORDERED: MAGNESIUM SULFATE IN WATER 2 GM/50 ML IVPB IVPB ONE (10:00)
[2017-07-21] MEDS ORDERED: PT OWN MED DRAWER 7, Y5N ONE ×3 (10:47→22:23)
--- NOTE | 2017-07-21 10:50 | PN ---
Progress Note (short form) - Note Progress Note: Feels much better No N/V, abd pain today Had BM in the morning Vital Signs Period Temp Pulse Resp BP Sys/Watkins Pulse Ox Last 24 Hr 97.8 F-98.7 F 104-122 18-20 125-142/59-79 95 PE: Aox3 HEENT: EOMI Neck: Supple, No JVD Lungs: CTA CVS: S1S2 Abd: Benign Ext: No Edema ,. amputated left 3rd and 4th toes Neuro: No focal deficit CMP Sodium 147 mmol/L (136-145) H 07/21/17 06:03 Potassium 3.4 mmol/L (3.5-5.1) L 07/21/17 06:03 Chloride 116 mmol/L (98-107) H 07/21/17 06:03 Carbon Dioxide 21 mmol/L (21-32) 07/21/17 06:03 Anion Gap 10 (8-16) 07/21/17 06:03 BUN 5 mg/dL (7-18) L 07/21/17 06:03 Creatinine 0.4 mg/dL (0.55-1.02) L 07/21/17 06:03 Creat Clearance w eGFR > 60 (>60) 07/21/17 06:03 Random Glucose 80 mg/dL (74-106) 07/21/17 06:03 Calcium 9.0 mg/dL (8.5-10.1) 07/21/17 06:03 Phosphorus 2.9 mg/dL (2.5-4.9) 07/19/17 10:17 Magnesium 1.5 mg/dL (1.8-2.4) L 07/21/17 06:03 Total Bilirubin 0.8 mg/dL (0.2-1.0) 07/21/17 06:03 AST 9 U/L (15-37) L 07/21/17 06:03 ALT < 6 U/L (12-78) L 07/21/17 06:03 Alkaline Phosphatase 85 U/L (45-117) 07/21/17 06:03 Creatine Kinase 21 IU/L (26-192) L 07/16/17 13:55 Troponin I 0.02 ng/ml (0.00-0.05) 07/18/17 06:40 Total Protein 6.7 g/dl (6.4-8.2) 07/21/17 06:03 Albumin 2.4 g/dl (3.4-5.0) L 07/21/17 06:03 TSH < 0.01 uIU/ml (0.358-3.74) L 07/18/17 06:40 Free T4 6.98 ng/dl (0.76-1.46) H 07/20/17 07:50 Free T3 10.8 pg/ml (2.0-4.4) H 07/18/17 06:40 Current Medications Generic Name Dose Route Start Last Admin Trade Name Freq PRN Reason Stop Dose Admin Acetaminophen 650 mg 07/17/17 20:36 Tylenol - PO Q6H PRN PAIN LEVEL 4 - 6 Carbidopa/Levodopa 1 combo 07/17/17 13:15 07/20/17 23:39 Sinemet *Cr* 50/200 - PO 1 combo BID MELANY Administration Clopidogrel Bisulfate 75 mg 07/18/17 12:00 07/20/17 09:53 Plavix - PO 75 mg DAILY MELANY Administration Diltiazem HCl 360 mg 07/20/17 10:01 07/20/17 10:16 Cardizem Cd - PO 360 mg DAILY MELANY Administration Metronidazole 500 mg in 100 mls @ 100 mls/hr 07/18/17 22:45 07/21/17 02:30 Flagyl 500mg Premixed Ivpb - IVPB 100 mls/hr Q8H-IV MELANY Administration Dextrose/Sodium Chloride 40 meq in 1,000 mls @ 75 mls/hr 07/21/17 09:15 D5-1/2ns+40 Meq Kcl - IV ASDIR MELANY Magnesium Sulfate 2 gm in 50 mls @ 50 mls/hr 07/21/17 10:00 Magnesium Sulf 2 G/50 Ml Bag IVPB 07/21/17 10:59 ONCE ONE Potassium Chloride 10 meq/ 105 mls @ 105 mls/hr 07/21/17 12:00 Sodium Chloride IVPB 07/21/17 12:59 ONCE ONE Potassium Chloride 20 meq/ 260 mls @ 130 mls/hr 07/21/17 09:45 Sodium Chloride IVPB 07/21/17 11:44 ONCE ONE Methimazole 20 mg 07/20/17 17:30 07/20/17 23:39 Tapazole - PO 20 mg BID MELANY Administration Metoprolol Succinate 50 mg 07/17/17 10:00 07/20/17 09:53 Toprol Xl - PO 50 mg DAILY MELANY Administration Ondansetron HCl 4 mg 07/16/17 18:56 07/20/17 09:53 Zofran Injection IVPUSH 4 mg Q6H PRN Administration NAUSEA AP: SBO Hyperthyroidism A Fib with RPR PAD Parkinson's disease HTN Continue Methimazole 10mg 2 tabs BID, Labs for TSI pending TPO 14 FT4 6.98 yesterday, RPt FT4 tomorrow Rate control as per Cardiology
[2017-07-21] MEDS: CLOPIDOGREL BISULFATE 75 MG TABLET (FP) PO SCH (10:52)
[2017-07-21] MEDS ORDERED: POTASSIUM PHOSPHATE 40 MM in DEXTROSE 5%-WATER - 250 ML IVPB ONE (10:53)
[2017-07-21] MEDS: METHIMAZOLE 10 MG TABLET (FP) PO SCH ×2 (10:53→22:40)
--- NOTE | 2017-07-21 11:52 | PN ---
Progress Note, Physician Chief Complaint: Pt lying in bed, denies any nausea at the moment, reports she had n/v yesterday but feeling a lot better today. Denies any abd pain, n/v/d, chest discomfort, sob or further complaints - Current Medication List Current Medications: Active Medications Acetaminophen (Tylenol -) 650 mg PO Q6H PRN PRN Reason: PAIN LEVEL 4 - 6 Carbidopa/Levodopa (Sinemet *Cr* 50/200 -) 1 combo PO BID [facility] Last Admin: 07/21/17 10:53 Dose: 1 combo Clopidogrel Bisulfate (Plavix -) 75 mg PO DAILY [facility] Last Admin: 07/21/17 10:52 Dose: 75 mg Diltiazem HCl (Cardizem Cd -) 360 mg PO DAILY [facility] Last Admin: 07/21/17 10:52 Dose: 360 mg Metronidazole (Flagyl 500mg Premixed Ivpb -) 500 mg in 100 mls @ 100 mls/hr IVPB Q8H-IV [facility] Last Admin: 07/21/17 10:53 Dose: 100 mls/hr Dextrose/Sodium Chloride (D5-1/2ns+40 Meq Kcl -) 40 meq in 1,000 mls @ 75 mls/ hr IV ASDIR [facility] Potassium Chloride 10 meq/ (Sodium Chloride) 105 mls @ 105 mls/hr IVPB ONCE ONE Stop: 07/21/17 12:59 Methimazole (Tapazole -) 20 mg PO BID [facility] Last Admin: 07/21/17 10:53 Dose: 20 mg Metoprolol Succinate (Toprol Xl -) 50 mg PO DAILY [facility] Last Admin: 07/21/17 10:53 Dose: 50 mg Ondansetron HCl (Zofran Injection) 4 mg IVPUSH Q6H PRN PRN Reason: NAUSEA Last Admin: 07/20/17 09:53 Dose: 4 mg - Objective Vital Signs: Vital Signs Temperature 98.6 F 07/21/17 04:00 Pulse Rate 114 H 07/21/17 04:00 Respiratory Rate 20 07/21/17 04:00 Blood Pressure 125/59 07/21/17 04:00 O2 Sat by Pulse Oximetry (%) 95 07/20/17 21:00 Constitutional: Yes: No Distress, Thin Cardiovascular: Yes: Tachycardia, Pulse Irregular Gastrointestinal: Yes: Hypoactive Bowel Sounds Genitourinary: Yes: WNL Labs: CBC, BMP 07/21/17 06:03 07/21/17 06:03 Problem List - Problems (1) SBO (small bowel obstruction) Code(s): K56.609 - UNSP INTESTNL OBST, UNSP TO PARTIAL VERSUS COMPLETE OBST (2) RACHELLE (acute kidney injury) Code(s): N17.9 - ACUTE KIDNEY FAILURE, UNSPECIFIED (3) Atrial fibrillation with rapid ventricular response Code(s): I48.91 - UNSPECIFIED ATRIAL FIBRILLATION (4) Parkinson disease Code(s): G20 - PARKINSON'S DISEASE (5) Peripheral vascular disease Code(s): I73.9 - PERIPHERAL VASCULAR DISEASE, UNSPECIFIED (6) HTN (hypertension) Code(s): I10 - ESSENTIAL (PRIMARY) HYPERTENSION Qualifiers: Hypertension type: essential hypertension Qualified Code(s): I10 - Essential (primary) hypertension (7) Bradykinesia Code(s): R25.8 - OTHER ABNORMAL INVOLUNTARY MOVEMENTS (8) Hypophonia Code(s): R49.8 - OTHER VOICE AND RESONANCE DISORDERS (9) Hypokalemia Code(s): E87.6 - HYPOKALEMIA (10) Hypomagnesemia Code(s): E83.42 - HYPOMAGNESEMIA (11) Low TSH level Code(s): R94.6 - ABNORMAL RESULTS OF THYROID FUNCTION STUDIES (12) Diarrhea Code(s): R19.7 - DIARRHEA, UNSPECIFIED Assessment/Plan (1) SBO (small bowel obstruction) Assessment/Plan: partial sbo, kub abd repeat abd kub tmrw bs hypoactive, flatus +, +bm keep NPO antiemetics prn ambulate as tolerated PT Surgery following Code(s): K56.609 - UNSP INTESTNL OBST, UNSP TO PARTIAL VERSUS COMPLETE OBST (2) RACHELLE (acute kidney injury) Assessment/Plan: improved Code(s): N17.9 - ACUTE KIDNEY FAILURE, UNSPECIFIED (3) Atrial fibrillation with rapid ventricular response Assessment/Plan: afib w/ rvr, hr in 110s, pt asymptomatic ekg noted not on AC due to frequent falls metoprolol/ cardizem increased cardiology following Code(s): I48.91 - UNSPECIFIED ATRIAL FIBRILLATION (4) Parkinson disease Assessment/Plan: chronic dystonia, bradykinisia with intermittent confusion home med: rytary 36.25/145 2 caps bid followed by outpt neurology dysphagia whole diet when diet advanced Code(s): G20 - PARKINSON'S DISEASE (5) Peripheral vascular disease Assessment/Plan: s/p angiogram, stent lle , 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 continue plavix Code(s): I73.9 - PERIPHERAL VASCULAR DISEASE, UNSPECIFIED (6) HTN (hypertension) Assessment/Plan: controlled continue current regimen Code(s): I10 - ESSENTIAL (PRIMARY) HYPERTENSION Qualifiers: Hypertension type: essential hypertension Qualified Code(s): I10 - Essential (primary) hypertension (7) Bradykinesia Assessment/Plan: secondary to PD chronic Code(s): R25.8 - OTHER ABNORMAL INVOLUNTARY MOVEMENTS (8) Hypophonia Assessment/Plan: chronic as above Code(s): R49.8 - OTHER VOICE AND RESONANCE DISORDERS (9) Hypokalemia Assessment/Plan: secondary to reduced po intake/gi losses kcl iv 10meq x 3 ivf will monitor Code(s): E87.6 - HYPOKALEMIA (10) Hypomagnesemia Assessment/Plan: as above 2g iv mag ordered monitor bmp Code(s): E83.42 - HYPOMAGNESEMIA (11) Low TSH level Assessment/Plan: referred to endocrine last admission, pt did not f/u during this admission, tsh <0.01 /free t3 pending/t4 elevated>5 endocrine consult appreciated pt started on tapazole endocrine following Code(s): R94.6 - ABNORMAL RESULTS OF THYROID FUNCTION STUDIES (12) Diarrhea Assessment/Plan: improving cdiff antigen positive/toxin neg flagyl iv ID following Code(s): R19.7 - DIARRHEA, UNSPECIFIED
[2017-07-21] MEDS ORDERED: POTASSIUM CHLORIDE 10 MEQ in SODIUM CHLORIDE 100 ML IVPB ONE (12:00)
--- NOTE | 2017-07-21 12:51 | PN ---
Progress Note, Physician History of Present Illness: patient stable had 3 episodes of dirrhoea - Current Medication List Current Medications: Active Medications Acetaminophen (Tylenol -) 650 mg PO Q6H PRN PRN Reason: PAIN LEVEL 4 - 6 Carbidopa/Levodopa (Sinemet *Cr* 50/200 -) 1 combo PO BID [facility] Last Admin: 07/21/17 10:53 Dose: 1 combo Clopidogrel Bisulfate (Plavix -) 75 mg PO DAILY [facility] Last Admin: 07/21/17 10:52 Dose: 75 mg Diltiazem HCl (Cardizem Cd -) 360 mg PO DAILY [facility] Last Admin: 07/21/17 10:52 Dose: 360 mg Metronidazole (Flagyl 500mg Premixed Ivpb -) 500 mg in 100 mls @ 100 mls/hr IVPB Q8H-IV [facility] Last Admin: 07/21/17 10:53 Dose: 100 mls/hr Dextrose/Sodium Chloride (D5-1/2ns+40 Meq Kcl -) 40 meq in 1,000 mls @ 75 mls/ hr IV ASDIR [facility] Potassium Chloride 10 meq/ (Sodium Chloride) 105 mls @ 105 mls/hr IVPB ONCE ONE Stop: 07/21/17 12:59 Last Admin: 07/21/17 12:26 Dose: 105 mls/hr Methimazole (Tapazole -) 20 mg PO BID [facility] Last Admin: 07/21/17 10:53 Dose: 20 mg Metoprolol Succinate (Toprol Xl -) 50 mg PO DAILY [facility] Last Admin: 07/21/17 10:53 Dose: 50 mg Ondansetron HCl (Zofran Injection) 4 mg IVPUSH Q6H PRN PRN Reason: NAUSEA Last Admin: 07/20/17 09:53 Dose: 4 mg - Objective Vital Signs: Vital Signs Temperature 98.6 F 07/21/17 04:00 Pulse Rate 114 H 07/21/17 04:00 Respiratory Rate 20 07/21/17 04:00 Blood Pressure 125/59 07/21/17 04:00 O2 Sat by Pulse Oximetry (%) 95 07/20/17 21:00 Constitutional: Yes: No Distress, Calm Cardiovascular: Yes: S1, S2 Respiratory: Yes: Regular, CTA Bilaterally Gastrointestinal: Yes: Normal Bowel Sounds, Soft Musculoskeletal: Yes: WNL Extremities: Yes: WNL Neurological: Yes: Alert, Oriented Psychiatric: Yes: Alert, Oriented Labs: CBC, BMP 07/21/17 06:03 07/21/17 06:03 Assessment/Plan looking at the patient and her dirrhoea and antigen positive i would at the moment hold off on starting anything as i think this is overflow dirrhoea Problem List - Problems (1) SBO (small bowel obstruction) Code(s): K56.609 - UNSP INTESTNL OBST, UNSP TO PARTIAL VERSUS COMPLETE OBST (2) RACHELLE (acute kidney injury) Code(s): N17.9 - ACUTE KIDNEY FAILURE, UNSPECIFIED (3) Atrial fibrillation with rapid ventricular response Code(s): I48.91 - UNSPECIFIED ATRIAL FIBRILLATION (4) Parkinson disease Code(s): G20 - PARKINSON'S DISEASE (5) Peripheral vascular disease Code(s): I73.9 - PERIPHERAL VASCULAR DISEASE, UNSPECIFIED (6) HTN (hypertension) Code(s): I10 - ESSENTIAL (PRIMARY) HYPERTENSION Qualifiers: Hypertension type: essential hypertension Qualified Code(s): I10 - Essential (primary) hypertension (7) Bradykinesia Code(s): R25.8 - OTHER ABNORMAL INVOLUNTARY MOVEMENTS (8) Hypophonia Code(s): R49.8 - OTHER VOICE AND RESONANCE DISORDERS (9) Hypokalemia Code(s): E87.6 - HYPOKALEMIA (10) Hypomagnesemia Code(s): E83.42 - HYPOMAGNESEMIA (11) Low TSH level Code(s): R94.6 - ABNORMAL RESULTS OF THYROID FUNCTION STUDIES (12) Diarrhea Code(s): R19.7 - DIARRHEA, UNSPECIFIED plan 1 hydration 2,high enemas continue current mgmt patient improving
[2017-07-21 14:50] LABS: ANION GAP 11 (8-16); BLOOD UREA NITROGEN 5 mg/dL (7-18); CALCIUM 9.3 mg/dL (8.5-10.1); CHLORIDE 115 mmol/L (98-107); CO2 21 mmol/L (21-32); GLUCOSE,RANDOM 80 mg/dL (74-106); POTASSIUM 3.4 mmol/L (3.5-5.1); SODIUM 147 mmol/L (136-145)
[2017-07-21 14:51] LABS: CREATININE 0.3 mg/dL (0.55-1.02)
--- NOTE | 2017-07-21 15:02 | PN ---
Progress Note (short form) - Note Progress Note: Attending Surgeon No c/o; states she is passing gas and has diarrhea; remains NPO VSS AF abdo-soft; flat and non tender AXR today-psbo IMP: PSBO PLAN: NPO/IVF obstructive series tomorrow. Godwin Bueno MD FACS
[2017-07-21] MEDS: D5-1/2NS+40 MEQ KCL - 40 MEQ/1,000 ML INFUS.BAG IV SCH (17:52)
[2017-07-21 21:40] LABS: URINE APPEARANCE CLEAR; URINE BILIRUBIN NEGATIVE (<2.0 mg/dL); URINE COLOR YELLOW; URINE GLUCOSE (UA) NEGATIVE (NEGATIVE); URINE KETONE 2+ (NEGATIVE); URINE NITRITE NEGATIVE (NEGATIVE); URINE PROTEIN NEGATIVE (NEGATIVE); URINE UROBILINOGEN NEGATIVE mg/dL (0.2-1.0)
[2017-07-21 21:54] LABS: URINE LEUK ESTERASE 1+ (NEGATIVE)
[2017-07-21 21:57] LABS: EPI CELLS RARE /HPF (FEW); URINE BACTERIA RARE /hpf (NONE SEEN); URINE HYALINE CAST 3 /lpf; URINE MUCUS RARE
[2017-07-22] MEDS ORDERED: PT OWN MED DRAWER 7, Y5N ONE ×3 (01:03→21:41)
[2017-07-22 06:07] LABS: THYROID STIM IMMUNOGLOBULIN <0.10 IU/L (0.00-0.55)
[2017-07-22 07:30] LABS: BASO % 0.2 % (0-2.0); EOS % 0.8 % (0-4.5); HEMATOCRIT 33.2 % (32.4-45.2); HEMOGLOBIN 10.8 GM/dL (10.7-15.3); LYMPH % 19.2 % (8-40); MCH 26.9 pg (25.7-33.7); MCHC 32.5 g/dl (32.0-36.0); MEAN CELL VOLUME 82.8 fl (80-96); MONO % 10.5 % (3.8-10.2); NEUT % 69.3 % (42.8-82.8); PLATELET COUNT 157 K/MM3 (134-434); RBC 4.01 M/mm3 (3.60-5.2); RDW 16.7 % (11.6-15.6); WHITE BLOOD COUNT 13.3 K/mm3 (4.0-10.0)
[2017-07-22 07:32] LABS: ANION GAP 7 (8-16); BLOOD UREA NITROGEN 3 mg/dL (7-18); CALCIUM 8.9 mg/dL (8.5-10.1); CHLORIDE 117 mmol/L (98-107); CO2 22 mmol/L (21-32); CREATININE 0.4 mg/dL (0.55-1.02); GLUCOSE,RANDOM 112 mg/dL (74-106); MAGNESIUM 1.3 mg/dL (1.8-2.4); POTASSIUM 3.6 mmol/L (3.5-5.1); SODIUM 146 mmol/L (136-145)
[2017-07-22] MEDS ORDERED: MAGNESIUM 2GM/50ML STERILE WATER IVPB IVPB ONE (09:21)
[2017-07-22] MEDS: CLOPIDOGREL BISULFATE 75 MG TABLET (FP) PO SCH (10:22)
[2017-07-22] MEDS: MAGNESIUM 1GM/D5W 100ML - 100 ML IVPB IVPB SCH ×2 (10:22→11:22)
[2017-07-22] MEDS: D5-1/2NS+40 MEQ KCL - 40 MEQ/1,000 ML INFUS.BAG IV SCH ×2 (10:23→17:57)
[2017-07-22] MEDS: METHIMAZOLE 10 MG TABLET (FP) PO SCH ×2 (10:26→22:16)
[2017-07-22] MEDS ORDERED: POTASSIUM CHLORIDE 10 MEQ in SODIUM CHLORIDE 100 ML IVPB SCH (11:15)
--- NOTE | 2017-07-22 11:20 | PN ---
Progress Note (short form) - Note Progress Note: Attending Surgeon No c/o; she is passing flatus and BM abdo-soft and not distended. AXR-no obstruction IMO: resolving SBO PLAN Liquid diet and advance as tolerated. Godwin Bueno MD FACS
--- NOTE | 2017-07-22 11:40 | PN ---
Progress Note (short form) - Note Progress Note: Feels much better No N/V, abd pain today Had BM in the morning Vital Signs Period Temp Pulse Resp BP Sys/Watkins Pulse Ox Last 24 Hr 97.8 F-97.9 F 95-109 20-21 124-137/57-83 97 PE: Aox3 HEENT: EOMI Neck: Supple, No JVD Lungs: CTA CVS: S1S2 Abd: Benign Ext: No Edema ,. amputated left 3rd and 4th toes Neuro: No focal deficit CMP Sodium 146 mmol/L (136-145) H 07/22/17 06:35 Potassium 3.6 mmol/L (3.5-5.1) 07/22/17 06:35 Chloride 117 mmol/L (98-107) H 07/22/17 06:35 Carbon Dioxide 22 mmol/L (21-32) 07/22/17 06:35 Anion Gap 7 (8-16) L 07/22/17 06:35 BUN 3 mg/dL (7-18) L 07/22/17 06:35 Creatinine 0.4 mg/dL (0.55-1.02) L 07/22/17 06:35 Creat Clearance w eGFR > 60 (>60) 07/21/17 06:03 Random Glucose 112 mg/dL (74-106) H 07/22/17 06:35 Calcium 8.9 mg/dL (8.5-10.1) 07/22/17 06:35 Phosphorus 2.0 mg/dL (2.5-4.9) L 07/22/17 06:35 Magnesium 1.3 mg/dL (1.8-2.4) L 07/22/17 06:35 Total Bilirubin 0.8 mg/dL (0.2-1.0) 07/21/17 06:03 AST 9 U/L (15-37) L 07/21/17 06:03 ALT < 6 U/L (12-78) L 07/21/17 06:03 Alkaline Phosphatase 85 U/L (45-117) 07/21/17 06:03 Creatine Kinase 21 IU/L (26-192) L 07/16/17 13:55 Troponin I 0.02 ng/ml (0.00-0.05) 07/18/17 06:40 Total Protein 6.7 g/dl (6.4-8.2) 07/21/17 06:03 Albumin 2.4 g/dl (3.4-5.0) L 07/21/17 06:03 TSH < 0.01 uIU/ml (0.358-3.74) L 07/18/17 06:40 Free T4 5.95 ng/dl (0.76-1.46) H 07/22/17 06:35 Free T3 12.3 pg/ml (2.0-4.4) H 07/20/17 07:50 Thyroid Stim Immunoglob <0.10 IU/L (0.00-0.55) 07/19/17 10:17 Current Medications Generic Name Dose Route Start Last Admin Trade Name Freq PRN Reason Stop Dose Admin Acetaminophen 650 mg 07/17/17 20:36 Tylenol - PO Q6H PRN PAIN LEVEL 4 - 6 Carbidopa/Levodopa 1 combo 07/17/17 13:15 07/22/17 10:24 Sinemet *Cr* 50/200 - PO 1 combo BID [facility] Administration Clopidogrel Bisulfate 75 mg 07/18/17 12:00 07/22/17 10:22 Plavix - PO 75 mg DAILY [facility] Administration Diltiazem HCl 360 mg 07/20/17 10:01 07/22/17 10:22 Cardizem Cd - PO 360 mg DAILY [facility] Administration Metronidazole 500 mg in 100 mls @ 100 mls/hr 07/18/17 22:45 07/22/17 10:23 Flagyl 500mg Premixed Ivpb - IVPB 100 mls/hr Q8H-IV [facility] Administration Dextrose/Sodium Chloride 40 meq in 1,000 mls @ 75 mls/hr 07/21/17 09:15 07/22 10:23 D5-1/2ns+40 Meq Kcl - IV Not Given ASDIR [facility] Potassium Chloride 10 meq/ 105 mls @ 100 mls/hr 07/22/17 11:15 Sodium Chloride IVPB 07/22/17 12:14 Q60M [facility] Potassium Phosphate 20 mm/ 256.6667 mls @ 42.778 mls/hr 07/22/17 11:45 Dextrose IVPB 07/22/17 17:44 ONCE ONE Methimazole 20 mg 07/20/17 17:30 07/22/17 10:26 Tapazole - PO 20 mg BID [facility] Administration Metoprolol Succinate 50 mg 07/17/17 10:00 07/22/17 10:22 Toprol Xl - PO 50 mg DAILY [facility] Administration Ondansetron HCl 4 mg 07/16/17 18:56 07/20/17 09:53 Zofran Injection IVPUSH 4 mg Q6H PRN Administration NAUSEA AP: SBO Hyperthyroidism: neg for TSI, > sec to toxic nodule, ?thyroiditis A Fib with RPR PAD Parkinson's disease HTN Continue Methimazole 10mg 2 tabs BID, TSI < 0.10 TPO 14 FT4 5.95 today Sonogram of thyroid and possbly scan as out patient. Rate control as per Cardiology
[2017-07-22] MEDS ORDERED: POTASSIUM PHOSPHATE 20 MM in DEXTROSE 5%-WATER - 250 ML IVPB ONE (11:45)
--- NOTE | 2017-07-22 12:35 | PN ---
Progress Note, Physician Chief Complaint: Pt lying in bed, denies any nausea at the moment. passing flatus, had bm. reports diarrhea better. . Denies any abd pain, n/v/, chest discomfort, sob or further complaints - Current Medication List Current Medications: Active Medications Acetaminophen (Tylenol -) 650 mg PO Q6H PRN PRN Reason: PAIN LEVEL 4 - 6 Carbidopa/Levodopa (Sinemet *Cr* 50/200 -) 1 combo PO BID [facility] Last Admin: 07/22/17 10:24 Dose: 1 combo Clopidogrel Bisulfate (Plavix -) 75 mg PO DAILY [facility] Last Admin: 07/22/17 10:22 Dose: 75 mg Diltiazem HCl (Cardizem Cd -) 360 mg PO DAILY [facility] Last Admin: 07/22/17 10:22 Dose: 360 mg Metronidazole (Flagyl 500mg Premixed Ivpb -) 500 mg in 100 mls @ 100 mls/hr IVPB Q8H-IV [facility] Last Admin: 07/22/17 10:23 Dose: 100 mls/hr Dextrose/Sodium Chloride (D5-1/2ns+40 Meq Kcl -) 40 meq in 1,000 mls @ 75 mls/ hr IV ASDIR [facility] Last Admin: 07/22/17 10:23 Dose: Not Given Potassium Phosphate 20 mm/ (Dextrose) 256.6667 mls @ 42.778 mls/hr IVPB ONCE ONE Stop: 07/22/17 17:44 Methimazole (Tapazole -) 20 mg PO BID [facility] Last Admin: 07/22/17 10:26 Dose: 20 mg Metoprolol Succinate (Toprol Xl -) 50 mg PO DAILY [facility] Last Admin: 07/22/17 10:22 Dose: 50 mg Ondansetron HCl (Zofran Injection) 4 mg IVPUSH Q6H PRN PRN Reason: NAUSEA Last Admin: 07/20/17 09:53 Dose: 4 mg - Objective Vital Signs: Vital Signs Temperature 98 F 07/22/17 09:00 Pulse Rate 128 H 07/22/17 09:00 Respiratory Rate 19 07/22/17 09:00 Blood Pressure 145/85 07/22/17 09:00 O2 Sat by Pulse Oximetry (%) 98 07/22/17 09:00 Constitutional: Yes: No Distress, Thin Cardiovascular: Yes: Tachycardia, Pulse Irregular Respiratory: Yes: WNL, Regular, CTA Bilaterally. No: Accessory Muscle Use, SOB , Tachypnea, Wheezes Gastrointestinal: Yes: WNL, Normal Bowel Sounds, Soft. No: Distention, Tenderness Genitourinary: Yes: WNL Edema: No Neurological: Yes: WNL, Alert, Oriented Psychiatric: Yes: WNL, Alert, Oriented Labs: CBC, BMP 07/22/17 06:35 07/22/17 06:35 Problem List - Problems (1) SBO (small bowel obstruction) Code(s): K56.609 - UNSP INTESTNL OBST, UNSP TO PARTIAL VERSUS COMPLETE OBST (2) RACHELLE (acute kidney injury) Code(s): N17.9 - ACUTE KIDNEY FAILURE, UNSPECIFIED (3) Atrial fibrillation with rapid ventricular response Code(s): I48.91 - UNSPECIFIED ATRIAL FIBRILLATION (4) Parkinson disease Code(s): G20 - PARKINSON'S DISEASE (5) Peripheral vascular disease Code(s): I73.9 - PERIPHERAL VASCULAR DISEASE, UNSPECIFIED (6) HTN (hypertension) Code(s): I10 - ESSENTIAL (PRIMARY) HYPERTENSION Qualifiers: Hypertension type: essential hypertension Qualified Code(s): I10 - Essential (primary) hypertension (7) Bradykinesia Code(s): R25.8 - OTHER ABNORMAL INVOLUNTARY MOVEMENTS (8) Hypophonia Code(s): R49.8 - OTHER VOICE AND RESONANCE DISORDERS (9) Hypokalemia Code(s): E87.6 - HYPOKALEMIA (10) Hypomagnesemia Code(s): E83.42 - HYPOMAGNESEMIA (11) Low TSH level Code(s): R94.6 - ABNORMAL RESULTS OF THYROID FUNCTION STUDIES (12) Diarrhea Code(s): R19.7 - DIARRHEA, UNSPECIFIED Qualifiers: Diarrhea type: infectious Qualified Code(s): A09 - Infectious gastroenteritis and colitis, unspecified (13) Leukocytosis Code(s): D72.829 - ELEVATED WHITE BLOOD CELL COUNT, UNSPECIFIED (14) Hyperthyroidism Code(s): E05.90 - THYROTOXICOSIS, UNSP WITHOUT THYROTOXIC CRISIS OR STORM Assessment/Plan (1) SBO (small bowel obstruction) Assessment/Plan: partial sbo, kub abd better pt denies nausea/vomiting bs +, flatus +, +bm start clear liquids antiemetics prn ambulate as tolerated PT Surgery following Code(s): K56.609 - UNSP INTESTNL OBST, UNSP TO PARTIAL VERSUS COMPLETE OBST (2) RACHELLE (acute kidney injury) Assessment/Plan: improved Code(s): N17.9 - ACUTE KIDNEY FAILURE, UNSPECIFIED (3) Atrial fibrillation with rapid ventricular response Assessment/Plan: afib w/ rvr, hr in 110s, pt asymptomatic ekg noted not on AC due to frequent falls metoprolol/ cardizem increased cardiology following Code(s): I48.91 - UNSPECIFIED ATRIAL FIBRILLATION (4) Parkinson disease Assessment/Plan: chronic dystonia, bradykinisia with intermittent confusion home med: rytary 36.25/145 2 caps bid followed by outpt neurology dysphagia whole diet when diet advanced Code(s): G20 - PARKINSON'S DISEASE (5) Peripheral vascular disease Assessment/Plan: s/p angiogram, stent lle , 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 continue plavix Code(s): I73.9 - PERIPHERAL VASCULAR DISEASE, UNSPECIFIED (6) HTN (hypertension) Assessment/Plan: controlled continue current regimen Code(s): I10 - ESSENTIAL (PRIMARY) HYPERTENSION Qualifiers: Hypertension type: essential hypertension Qualified Code(s): I10 - Essential (primary) hypertension (7) Bradykinesia Assessment/Plan: secondary to PD chronic Code(s): R25.8 - OTHER ABNORMAL INVOLUNTARY MOVEMENTS (8) Hypophonia Assessment/Plan: chronic as above Code(s): R49.8 - OTHER VOICE AND RESONANCE DISORDERS (9) Hypokalemia Assessment/Plan: improved secondary to reduced po intake/gi losses kcl iv 10meq x 1 ivf will monitor Code(s): E87.6 - HYPOKALEMIA (10) Hypomagnesemia Assessment/Plan: as above 2g iv mag ordered monitor bmp Code(s): E83.42 - HYPOMAGNESEMIA (11) Hyperthyroidism Assessment/Plan: referred to endocrine last admission, pt did not f/u during this admission, tsh <0.01 /free t3/t4 elevated endocrine consult appreciated pt started on tapazole endocrine following Code(s): E05.90 - THYROTOXICOSIS, UNSP WITHOUT THYROTOXIC CRISIS OR STORM (12) Diarrhea Assessment/Plan: improving cdiff antigen positive/toxin neg flagyl iv ID following Code(s): R19.7 - DIARRHEA, UNSPECIFIED (13) Leukocytosis Assessment/Plan: mild elevation secondary to cdiff/psbo ID following Code(s): D72.829 - ELEVATED WHITE BLOOD CELL COUNT, UNSPECIFIED
--- NOTE | 2017-07-22 15:28 | PN ---
Progress Note, Physician History of Present Illness: patient doing well no issues having bm - Current Medication List Current Medications: Active Medications Acetaminophen (Tylenol -) 650 mg PO Q6H PRN PRN Reason: PAIN LEVEL 4 - 6 Carbidopa/Levodopa (Sinemet *Cr* 50/200 -) 1 combo PO BID [facility] Last Admin: 07/22/17 10:24 Dose: 1 combo Clopidogrel Bisulfate (Plavix -) 75 mg PO DAILY [facility] Last Admin: 07/22/17 10:22 Dose: 75 mg Diltiazem HCl (Cardizem Cd -) 360 mg PO DAILY [facility] Last Admin: 07/22/17 10:22 Dose: 360 mg Metronidazole (Flagyl 500mg Premixed Ivpb -) 500 mg in 100 mls @ 100 mls/hr IVPB Q8H-IV [facility] Last Admin: 07/22/17 10:23 Dose: 100 mls/hr Dextrose/Sodium Chloride (D5-1/2ns+40 Meq Kcl -) 40 meq in 1,000 mls @ 75 mls/ hr IV ASDIR [facility] Last Admin: 07/22/17 10:23 Dose: Not Given Potassium Phosphate 20 mm/ (Dextrose) 256.6667 mls @ 42.778 mls/hr IVPB ONCE ONE Stop: 07/22/17 17:44 Last Admin: 07/22/17 14:18 Dose: 42.778 mls/hr Methimazole (Tapazole -) 20 mg PO BID [facility] Last Admin: 07/22/17 10:26 Dose: 20 mg Metoprolol Succinate (Toprol Xl -) 50 mg PO DAILY [facility] Last Admin: 07/22/17 10:22 Dose: 50 mg Ondansetron HCl (Zofran Injection) 4 mg IVPUSH Q6H PRN PRN Reason: NAUSEA Last Admin: 07/20/17 09:53 Dose: 4 mg - Objective Vital Signs: Vital Signs Temperature 98.2 F 07/22/17 14:00 Pulse Rate 91 H 07/22/17 14:00 Respiratory Rate 18 07/22/17 14:00 Blood Pressure 128/77 07/22/17 14:00 O2 Sat by Pulse Oximetry (%) 98 07/22/17 09:00 Constitutional: Yes: No Distress, Calm, Thin Cardiovascular: Yes: Regular Rate and Rhythm Respiratory: Yes: Regular, CTA Bilaterally Gastrointestinal: Yes: Normal Bowel Sounds, Soft Musculoskeletal: Yes: WNL Extremities: Yes: WNL Neurological: Yes: Alert, Oriented Psychiatric: Yes: Alert, Oriented Labs: CBC, BMP 07/22/17 06:35 07/22/17 06:35 Assessment/Plan looking at the patient and her dirrhoea and antigen positive i would at the moment hold off on starting anything as i think this is overflow dirrhoea Problem List - Problems (1) SBO (small bowel obstruction) Code(s): K56.609 - UNSP INTESTNL OBST, UNSP TO PARTIAL VERSUS COMPLETE OBST (2) RACHELLE (acute kidney injury) Code(s): N17.9 - ACUTE KIDNEY FAILURE, UNSPECIFIED (3) Atrial fibrillation with rapid ventricular response Code(s): I48.91 - UNSPECIFIED ATRIAL FIBRILLATION (4) Parkinson disease Code(s): G20 - PARKINSON'S DISEASE (5) Peripheral vascular disease Code(s): I73.9 - PERIPHERAL VASCULAR DISEASE, UNSPECIFIED (6) HTN (hypertension) Code(s): I10 - ESSENTIAL (PRIMARY) HYPERTENSION Qualifiers: Hypertension type: essential hypertension Qualified Code(s): I10 - Essential (primary) hypertension (7) Bradykinesia Code(s): R25.8 - OTHER ABNORMAL INVOLUNTARY MOVEMENTS (8) Hypophonia Code(s): R49.8 - OTHER VOICE AND RESONANCE DISORDERS (9) Hypokalemia Code(s): E87.6 - HYPOKALEMIA (10) Hypomagnesemia Code(s): E83.42 - HYPOMAGNESEMIA (11) Low TSH level Code(s): R94.6 - ABNORMAL RESULTS OF THYROID FUNCTION STUDIES (12) Diarrhea Code(s): R19.7 - DIARRHEA, UNSPECIFIED plan continue current mgmt consider advancing rest as per the team patient improving
[2017-07-23 07:52] LABS: BASO % 0.1 % (0-2.0); EOS % 1.3 % (0-4.5); HEMATOCRIT 32.8 % (32.4-45.2); HEMOGLOBIN 10.9 GM/dL (10.7-15.3); LYMPH % 14.4 % (8-40); MCH 27.4 pg (25.7-33.7); MCHC 33.3 g/dl (32.0-36.0); MEAN CELL VOLUME 82.2 fl (80-96); MEAN PLT VOLUME 8.1 fl (7.5-11.1); MONO % 7.8 % (3.8-10.2); NEUT % 76.4 % (42.8-82.8); PLATELET COUNT 145 K/MM3 (134-434); RDW 16.6 % (11.6-15.6); WHITE BLOOD COUNT 15.3 K/mm3 (4.0-10.0)
[2017-07-23 08:17] LABS: ANION GAP 8 (8-16); CALCIUM 8.8 mg/dL (8.5-10.1); CHLORIDE 108 mmol/L (98-107); CO2 27 mmol/L (21-32); CREATININE 0.4 mg/dL (0.55-1.02); GLUCOSE,RANDOM 146 mg/dL (74-106); MAGNESIUM 1.5 mg/dL (1.8-2.4); PHOSPHOROUS 2.1 mg/dL (2.5-4.9); POTASSIUM 3.8 mmol/L (3.5-5.1); SODIUM 143 mmol/L (136-145)
[2017-07-23 08:18] LABS: BLOOD UREA NITROGEN 3 mg/dL (7-18)
--- NOTE | 2017-07-23 08:58 | PN ---
Progress Note (short form) - Note Progress Note: Feels much better No N/V, abd pain Had BM in the morning Vital Signs Period Temp Pulse Resp BP Sys/Watkins Pulse Ox Last 24 Hr 98 F-98.6 F 91-128 18-21 126-145/67-85 97-98 PE: Aox3 HEENT: EOMI Neck: Supple, No JVD Lungs: CTA CVS: S1S2 Abd: Benign Ext: No Edema ,. amputated left 3rd and 4th toes Neuro: No focal deficit CMP Sodium 143 mmol/L (136-145) 07/23/17 06:00 Potassium 3.8 mmol/L (3.5-5.1) 07/23/17 06:00 Chloride 108 mmol/L (98-107) H 07/23/17 06:00 Carbon Dioxide 27 mmol/L (21-32) 07/23/17 06:00 Anion Gap 8 (8-16) 07/23/17 06:00 BUN 3 mg/dL (7-18) L 07/23/17 06:00 Creatinine 0.4 mg/dL (0.55-1.02) L 07/23/17 06:00 Creat Clearance w eGFR > 60 (>60) 07/21/17 06:03 Random Glucose 146 mg/dL (74-106) H 07/23/17 06:00 Calcium 8.8 mg/dL (8.5-10.1) 07/23/17 06:00 Phosphorus 2.1 mg/dL (2.5-4.9) L 07/23/17 06:00 Magnesium 1.5 mg/dL (1.8-2.4) L 07/23/17 06:00 Total Bilirubin 0.8 mg/dL (0.2-1.0) 07/21/17 06:03 AST 9 U/L (15-37) L 07/21/17 06:03 ALT < 6 U/L (12-78) L 07/21/17 06:03 Alkaline Phosphatase 85 U/L (45-117) 07/21/17 06:03 Creatine Kinase 21 IU/L (26-192) L 07/16/17 13:55 Troponin I 0.02 ng/ml (0.00-0.05) 07/18/17 06:40 Total Protein 6.7 g/dl (6.4-8.2) 07/21/17 06:03 Albumin 2.4 g/dl (3.4-5.0) L 07/21/17 06:03 TSH < 0.01 uIU/ml (0.358-3.74) L 07/18/17 06:40 Free T4 5.95 ng/dl (0.76-1.46) H 07/22/17 06:35 Free T3 12.3 pg/ml (2.0-4.4) H 07/20/17 07:50 Thyroid Stim Immunoglob <0.10 IU/L (0.00-0.55) 07/19/17 10:17 Current Medications Generic Name Dose Route Start Last Admin Trade Name Freq PRN Reason Stop Dose Admin Acetaminophen 650 mg 07/17/17 20:36 Tylenol - PO Q6H PRN PAIN LEVEL 4 - 6 Carbidopa/Levodopa 1 combo 07/17/17 13:15 07/22/17 22:16 Sinemet *Cr* 50/200 - PO 1 combo BID MELANY Administration Clopidogrel Bisulfate 75 mg 07/18/17 12:00 07/22/17 10:22 Plavix - PO 75 mg DAILY MELANY Administration Diltiazem HCl 360 mg 07/20/17 10:01 07/22/17 10:22 Cardizem Cd - PO 360 mg DAILY MELANY Administration Metronidazole 500 mg in 100 mls @ 100 mls/hr 07/18/17 22:45 07/23/17 02:15 Flagyl 500mg Premixed Ivpb - IVPB 100 mls/hr Q8H-IV MELANY Administration Dextrose/Sodium Chloride 40 meq in 1,000 mls @ 75 mls/hr 07/21/17 09:15 07/22 17:57 D5-1/2ns+40 Meq Kcl - IV 75 mls/hr ASDIR MELANY Administration Methimazole 20 mg 07/20/17 17:30 07/22/17 22:16 Tapazole - PO 20 mg BID MELANY Administration Metoprolol Succinate 50 mg 07/17/17 10:00 07/22/17 10:22 Toprol Xl - PO 50 mg DAILY MELANY Administration Ondansetron HCl 4 mg 07/16/17 18:56 07/20/17 09:53 Zofran Injection IVPUSH 4 mg Q6H PRN Administration NAUSEA AP: SBO Hyperthyroidism: neg for TSI, > sec to toxic nodule, ?thyroiditis A Fib with RPR PAD Parkinson's disease HTN Continue Methimazole 10mg 2 tabs BID, TSI < 0.10 TPO 14 FT4 5.95 today Sonogram of thyroid and possbly scan as out patient. Rate control as per Cardiology F/U in office in [address] Ramey covering until August 12
[2017-07-23] MEDS ORDERED: MAGNESIUM SULF 50% (8.12 MEQ/2 ML-1 GM VIAL) IVPB ONE (09:31)
[2017-07-23] MEDS: METHIMAZOLE 10 MG TABLET (FP) PO SCH ×2 (10:25→21:26)
[2017-07-23] MEDS: CLOPIDOGREL BISULFATE 75 MG TABLET (FP) PO SCH (10:25)
[2017-07-23] MEDS ORDERED: POTASSIUM CHLORIDE TABS 20 MEQ TABLET.ER (FP) PO ONE (10:30)
--- NOTE | 2017-07-23 10:48 | PN ---
Progress Note (short form) - Note Progress Note: s: no cp sob palps dizzy; has cdiff, sxs improving o: Vital Signs Period Temp Pulse Resp BP Sys/Watkins Pulse Ox Last 24 Hr 98 F-98.6 F 91-100 18-21 126-133/67-77 97 nad, calm, cachectic no jvd irregularly, irregular nl s1s2 no mrg cta bl poor eff aaox3 no le e/c/c abd nt nd pos bs no jaundice diaphoresis Current Medications Generic Name Dose Route Start Last Admin Trade Name Freq PRN Reason Stop Dose Admin Acetaminophen 650 mg 07/17/17 20:36 Tylenol - PO Q6H PRN PAIN LEVEL 4 - 6 Carbidopa/Levodopa 1 combo 07/17/17 13:15 07/23/17 10:25 Sinemet *Cr* 50/200 - PO 1 combo BID MELANY Administration Clopidogrel Bisulfate 75 mg 07/18/17 12:00 07/23/17 10:25 Plavix - PO 75 mg DAILY MELANY Administration Diltiazem HCl 360 mg 07/20/17 10:01 07/23/17 10:26 Cardizem Cd - PO 360 mg DAILY MELANY Administration Metronidazole 500 mg in 100 mls @ 100 mls/hr 07/18/17 22:45 07/23/17 10:23 Flagyl 500mg Premixed Ivpb - IVPB 100 mls/hr Q8H-IV MELANY Administration Dextrose/Sodium Chloride 40 meq in 1,000 mls @ 75 mls/hr 07/21/17 09:15 07/22 17:57 D5-1/2ns+40 Meq Kcl - IV 75 mls/hr ASDIR MELANY Administration Magnesium Sulfate/Dextrose 1 gm in 100 mls @ 100 mls/hr 07/23/17 10:00 Magnesium 1gm/D5w - IVPB 07/23/17 11:59 Q1H MELANY Methimazole 20 mg 07/20/17 17:30 07/23/17 10:25 Tapazole - PO 20 mg BID MELANY Administration Metoprolol Succinate 50 mg 07/17/17 10:00 07/23/17 10:26 Toprol Xl - PO 50 mg DAILY MELANY Administration Ondansetron HCl 4 mg 07/16/17 18:56 07/20/17 09:53 Zofran Injection IVPUSH 4 mg Q6H PRN Administration NAUSEA CBC, BMP 07/23/17 06:00 07/23/17 06:00 ekg: afib, 159 bpm. nl qtc, no ischemic changes. cxr: clear lungs stress 03/2017: baseline afib, no ischemic changes. inferior artifact. no ischemia/infarct. nl ef. echo 10/2016: nl lv/rv, mod mr, mild tr. 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 sbo, cdiff: -on abx -plans per gi, surgery afib -cont dilt, bb-->dilt increased to 360 here due to rvr at times, now improved -recurrent frequent falls. fall/bleeding risk thought to outweigh benefit of AC. con't plavix (asa allergy) monotherapy instead of AC. htn - stable pvd/AAA/+ tobacco - con't plavix. not on statin, will defer to outpatient md's. - smoking cessation
--- NOTE | 2017-07-23 11:25 | PN ---
Progress Note, Physician Chief Complaint: Pt lying in bed, denies any nausea at the moment. tolerating clears. passing flatus, had bm. Denies any abd pain, n/v/, chest discomfort, sob or further complaints - Current Medication List Current Medications: Active Medications Acetaminophen (Tylenol -) 650 mg PO Q6H PRN PRN Reason: PAIN LEVEL 4 - 6 Carbidopa/Levodopa (Sinemet *Cr* 50/200 -) 1 combo PO BID [facility] Last Admin: 07/23/17 10:25 Dose: 1 combo Clopidogrel Bisulfate (Plavix -) 75 mg PO DAILY [facility] Last Admin: 07/23/17 10:25 Dose: 75 mg Diltiazem HCl (Cardizem Cd -) 360 mg PO DAILY [facility] Last Admin: 07/23/17 10:26 Dose: 360 mg Metronidazole (Flagyl 500mg Premixed Ivpb -) 500 mg in 100 mls @ 100 mls/hr IVPB Q8H-IV [facility] Last Admin: 07/23/17 10:23 Dose: 100 mls/hr Dextrose/Sodium Chloride (D5-1/2ns+40 Meq Kcl -) 40 meq in 1,000 mls @ 75 mls/ hr IV ASDIR [facility] Last Admin: 07/22/17 17:57 Dose: 75 mls/hr Magnesium Sulfate/Dextrose (Magnesium 1gm/D5w -) 1 gm in 100 mls @ 100 mls/hr IVPB Q1H [facility] Stop: 07/23/17 11:59 Methimazole (Tapazole -) 20 mg PO BID [facility] Last Admin: 07/23/17 10:25 Dose: 20 mg Metoprolol Succinate (Toprol Xl -) 50 mg PO DAILY [facility] Last Admin: 07/23/17 10:26 Dose: 50 mg Ondansetron HCl (Zofran Injection) 4 mg IVPUSH Q6H PRN PRN Reason: NAUSEA Last Admin: 07/20/17 09:53 Dose: 4 mg - Objective Vital Signs: Vital Signs Temperature 98.6 F 07/23/17 06:00 Pulse Rate 100 H 07/23/17 06:00 Respiratory Rate 20 07/23/17 06:00 Blood Pressure 133/72 07/23/17 06:00 O2 Sat by Pulse Oximetry (%) 97 07/22/17 22:00 Constitutional: Yes: No Distress, Thin Cardiovascular: Yes: Tachycardia, Pulse Irregular. No: Bruit, Gallop Respiratory: Yes: WNL, Regular, CTA Bilaterally. No: Accessory Muscle Use, SOB , Tachypnea, Wheezes Gastrointestinal: Yes: WNL, Normal Bowel Sounds, Soft. No: Distention, Tenderness Genitourinary: Yes: WNL Edema: No Neurological: Yes: WNL, Alert, Oriented Psychiatric: Yes: WNL, Alert, Oriented Labs: CBC, BMP 07/23/17 06:00 07/23/17 06:00 Problem List - Problems (1) SBO (small bowel obstruction) Code(s): K56.609 - UNSP INTESTNL OBST, UNSP TO PARTIAL VERSUS COMPLETE OBST (2) RACHELLE (acute kidney injury) Code(s): N17.9 - ACUTE KIDNEY FAILURE, UNSPECIFIED (3) Atrial fibrillation with rapid ventricular response Code(s): I48.91 - UNSPECIFIED ATRIAL FIBRILLATION (4) Parkinson disease Code(s): G20 - PARKINSON'S DISEASE (5) Peripheral vascular disease Code(s): I73.9 - PERIPHERAL VASCULAR DISEASE, UNSPECIFIED (6) HTN (hypertension) Code(s): I10 - ESSENTIAL (PRIMARY) HYPERTENSION Qualifiers: Hypertension type: essential hypertension Qualified Code(s): I10 - Essential (primary) hypertension (7) Bradykinesia Code(s): R25.8 - OTHER ABNORMAL INVOLUNTARY MOVEMENTS (8) Hypophonia Code(s): R49.8 - OTHER VOICE AND RESONANCE DISORDERS (9) Hypokalemia Code(s): E87.6 - HYPOKALEMIA (10) Hypomagnesemia Code(s): E83.42 - HYPOMAGNESEMIA (11) Low TSH level Code(s): R94.6 - ABNORMAL RESULTS OF THYROID FUNCTION STUDIES (12) Diarrhea Code(s): R19.7 - DIARRHEA, UNSPECIFIED Qualifiers: Diarrhea type: infectious Qualified Code(s): A09 - Infectious gastroenteritis and colitis, unspecified (13) Leukocytosis Code(s): D72.829 - ELEVATED WHITE BLOOD CELL COUNT, UNSPECIFIED (14) Hyperthyroidism Code(s): E05.90 - THYROTOXICOSIS, UNSP WITHOUT THYROTOXIC CRISIS OR STORM Assessment/Plan (1) SBO (small bowel obstruction) Assessment/Plan: partial sbo, kub abd improved pt denies nausea/vomiting bs +, flatus +, +bm tolerating clear liquids advance to full liquids today antiemetics prn ambulate as tolerated PT Surgery following Code(s): K56.609 - UNSP INTESTNL OBST, UNSP TO PARTIAL VERSUS COMPLETE OBST (2) RACHELLE (acute kidney injury) Assessment/Plan: improved Code(s): N17.9 - ACUTE KIDNEY FAILURE, UNSPECIFIED (3) Atrial fibrillation with rapid ventricular response Assessment/Plan: afib w/ rvr, hr in 110s, pt asymptomatic ekg noted not on AC due to frequent falls metoprolol/ cardizem cardiology following Code(s): I48.91 - UNSPECIFIED ATRIAL FIBRILLATION (4) Parkinson disease Assessment/Plan: chronic dystonia, bradykinisia with intermittent confusion home med: rytary 36.25/145 2 caps bid followed by outpt neurology dysphagia whole diet when diet advanced Code(s): G20 - PARKINSON'S DISEASE (5) Peripheral vascular disease Assessment/Plan: s/p angiogram, stent lle , 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 continue plavix Code(s): I73.9 - PERIPHERAL VASCULAR DISEASE, UNSPECIFIED (6) HTN (hypertension) Assessment/Plan: controlled continue current regimen Code(s): I10 - ESSENTIAL (PRIMARY) HYPERTENSION Qualifiers: Hypertension type: essential hypertension Qualified Code(s): I10 - Essential (primary) hypertension (7) Bradykinesia Assessment/Plan: secondary to PD chronic Code(s): R25.8 - OTHER ABNORMAL INVOLUNTARY MOVEMENTS (8) Hypophonia Assessment/Plan: chronic as above Code(s): R49.8 - OTHER VOICE AND RESONANCE DISORDERS (9) Hypokalemia Assessment/Plan: improved secondary to reduced po intake/gi losses kcl po 40meq ivf will monitor Code(s): E87.6 - HYPOKALEMIA (10) Hypomagnesemia Assessment/Plan: as above 2g iv mag ordered magox 800mg po monitor bmp Code(s): E83.42 - HYPOMAGNESEMIA (11) Hyperthyroidism Assessment/Plan: referred to endocrine last admission, pt did not f/u during this admission, tsh <0.01 /free t3/t4 elevated endocrine consult appreciated pt started on tapazole endocrine following Code(s): E05.90 - THYROTOXICOSIS, UNSP WITHOUT THYROTOXIC CRISIS OR STORM (12) Diarrhea Assessment/Plan: improving cdiff antigen positive/toxin neg flagyl iv ID following Code(s): R19.7 - DIARRHEA, UNSPECIFIED (13) Leukocytosis Assessment/Plan: mild elevation secondary to cdiff/psbo ID following Code(s): D72.829 - ELEVATED WHITE BLOOD CELL COUNT, UNSPECIFIED
[2017-07-23] MEDS ORDERED: MAGNESIUM OXIDE 400 MG TABLET (FP) PO ONE (11:57)
[2017-07-23] MEDS: MAGNESIUM 1GM/D5W - 1 GM/100 ML IVPB IVPB SCH ×2 (12:18→14:17)
--- NOTE | 2017-07-23 13:07 | PN ---
Progress Note, Physician History of Present Illness: patient doing well no issues tolerating liquid diet having bm - Current Medication List Current Medications: Active Medications Acetaminophen (Tylenol -) 650 mg PO Q6H PRN PRN Reason: PAIN LEVEL 4 - 6 Carbidopa/Levodopa (Sinemet *Cr* 50/200 -) 1 combo PO BID [facility] Last Admin: 07/23/17 10:25 Dose: 1 combo Clopidogrel Bisulfate (Plavix -) 75 mg PO DAILY [facility] Last Admin: 07/23/17 10:25 Dose: 75 mg Diltiazem HCl (Cardizem Cd -) 360 mg PO DAILY [facility] Last Admin: 07/23/17 10:26 Dose: 360 mg Metronidazole (Flagyl 500mg Premixed Ivpb -) 500 mg in 100 mls @ 100 mls/hr IVPB Q8H-IV [facility] Last Admin: 07/23/17 10:23 Dose: 100 mls/hr Dextrose/Sodium Chloride (D5-1/2ns+40 Meq Kcl -) 40 meq in 1,000 mls @ 75 mls/ hr IV ASDIR [facility] Last Admin: 07/22/17 17:57 Dose: 75 mls/hr Methimazole (Tapazole -) 20 mg PO BID [facility] Last Admin: 07/23/17 10:25 Dose: 20 mg Metoprolol Succinate (Toprol Xl -) 50 mg PO DAILY [facility] Last Admin: 07/23/17 10:26 Dose: 50 mg Ondansetron HCl (Zofran Injection) 4 mg IVPUSH Q6H PRN PRN Reason: NAUSEA Last Admin: 07/20/17 09:53 Dose: 4 mg - Objective Vital Signs: Vital Signs Temperature 98.6 F 07/23/17 06:00 Pulse Rate 100 H 07/23/17 06:00 Respiratory Rate 20 07/23/17 06:00 Blood Pressure 133/72 07/23/17 06:00 O2 Sat by Pulse Oximetry (%) 97 07/22/17 22:00 Constitutional: Yes: No Distress, Calm, Thin Neck: Yes: Supple Cardiovascular: Yes: Regular Rate and Rhythm Respiratory: Yes: Regular, CTA Bilaterally Gastrointestinal: Yes: Normal Bowel Sounds, Soft Musculoskeletal: Yes: WNL Extremities: Yes: WNL Neurological: Yes: Alert, Oriented Psychiatric: Yes: Alert, Oriented Labs: CBC, BMP 07/23/17 06:00 07/23/17 06:00 Assessment/Plan looking at the patient and her dirrhoea and antigen positive i would at the moment hold off on starting anything as i think this is overflow dirrhoea Problem List - Problems (1) SBO (small bowel obstruction) Code(s): K56.609 - UNSP INTESTNL OBST, UNSP TO PARTIAL VERSUS COMPLETE OBST (2) RACHELLE (acute kidney injury) Code(s): N17.9 - ACUTE KIDNEY FAILURE, UNSPECIFIED (3) Atrial fibrillation with rapid ventricular response Code(s): I48.91 - UNSPECIFIED ATRIAL FIBRILLATION (4) Parkinson disease Code(s): G20 - PARKINSON'S DISEASE (5) Peripheral vascular disease Code(s): I73.9 - PERIPHERAL VASCULAR DISEASE, UNSPECIFIED (6) HTN (hypertension) Code(s): I10 - ESSENTIAL (PRIMARY) HYPERTENSION Qualifiers: Hypertension type: essential hypertension Qualified Code(s): I10 - Essential (primary) hypertension (7) Bradykinesia Code(s): R25.8 - OTHER ABNORMAL INVOLUNTARY MOVEMENTS (8) Hypophonia Code(s): R49.8 - OTHER VOICE AND RESONANCE DISORDERS (9) Hypokalemia Code(s): E87.6 - HYPOKALEMIA (10) Hypomagnesemia Code(s): E83.42 - HYPOMAGNESEMIA (11) Low TSH level Code(s): R94.6 - ABNORMAL RESULTS OF THYROID FUNCTION STUDIES (12) Diarrhea Code(s): R19.7 - DIARRHEA, UNSPECIFIED plan continue liquid diet continue current mgmt rest as per the team patient improving
[2017-07-23] MEDS: D5-1/2NS+40 MEQ KCL - 40 MEQ/1,000 ML INFUS.BAG IV SCH (14:16)
[2017-07-23] MEDS ORDERED: PT OWN MED DRAWER 7, Y5N ONE (20:59)
--- NOTE | 2017-07-24 11:21 | PN ---
Progress Note, Physician Chief Complaint: Pt sitting in bed, denies any nausea. tolerating regular diet. passing flatus, had bm. Denies any abd pain, n/v/, chest discomfort, sob or further complaints - Current Medication List Current Medications: Active Medications Acetaminophen (Tylenol -) 650 mg PO Q6H PRN PRN Reason: PAIN LEVEL 4 - 6 Carbidopa/Levodopa (Sinemet *Cr* 50/200 -) 1 combo PO BID [facility] Last Admin: 07/23/17 21:26 Dose: 1 combo Clopidogrel Bisulfate (Plavix -) 75 mg PO DAILY [facility] Last Admin: 07/23/17 10:25 Dose: 75 mg Diltiazem HCl (Cardizem Cd -) 360 mg PO DAILY [facility] Last Admin: 07/23/17 10:26 Dose: 360 mg Metronidazole (Flagyl 500mg Premixed Ivpb -) 500 mg in 100 mls @ 100 mls/hr IVPB Q8H-IV [facility] Last Admin: 07/24/17 01:25 Dose: 100 mls/hr Methimazole (Tapazole -) 20 mg PO BID [facility] Last Admin: 07/23/17 21:26 Dose: 20 mg Metoprolol Succinate (Toprol Xl -) 50 mg PO DAILY [facility] Last Admin: 07/23/17 10:26 Dose: 50 mg Ondansetron HCl (Zofran Injection) 4 mg IVPUSH Q6H PRN PRN Reason: NAUSEA Last Admin: 07/20/17 09:53 Dose: 4 mg - Objective Vital Signs: Vital Signs Temperature 98.6 F 07/24/17 06:00 Pulse Rate 100 H 07/24/17 06:00 Respiratory Rate 20 07/24/17 06:00 Blood Pressure 116/70 07/24/17 06:00 O2 Sat by Pulse Oximetry (%) 98 07/23/17 22:00 Constitutional: Yes: No Distress, Thin Cardiovascular: Yes: Tachycardia, Pulse Irregular Respiratory: Yes: WNL, Regular, CTA Bilaterally. No: SOB, Tachypnea, Wheezes Gastrointestinal: Yes: WNL, Normal Bowel Sounds, Soft. No: Distention, Tenderness Genitourinary: Yes: WNL Edema: No Neurological: Yes: WNL, Alert, Oriented, Confusion (intermittent) Psychiatric: Yes: WNL, Alert, Oriented Labs: CBC, BMP 07/23/17 06:00 05/02/18 06:00 Problem List - Problems (1) SBO (small bowel obstruction) Code(s): K56.609 - UNSP INTESTNL OBST, UNSP TO PARTIAL VERSUS COMPLETE OBST (2) RACHELLE (acute kidney injury) Code(s): N17.9 - ACUTE KIDNEY FAILURE, UNSPECIFIED (3) Atrial fibrillation with rapid ventricular response Code(s): I48.91 - UNSPECIFIED ATRIAL FIBRILLATION (4) Parkinson disease Code(s): G20 - PARKINSON'S DISEASE (5) Peripheral vascular disease Code(s): I73.9 - PERIPHERAL VASCULAR DISEASE, UNSPECIFIED (6) HTN (hypertension) Code(s): I10 - ESSENTIAL (PRIMARY) HYPERTENSION Qualifiers: Hypertension type: essential hypertension Qualified Code(s): I10 - Essential (primary) hypertension (7) Bradykinesia Code(s): R25.8 - OTHER ABNORMAL INVOLUNTARY MOVEMENTS (8) Hypophonia Code(s): R49.8 - OTHER VOICE AND RESONANCE DISORDERS (9) Hypokalemia Code(s): E87.6 - HYPOKALEMIA (10) Hypomagnesemia Code(s): E83.42 - HYPOMAGNESEMIA (11) Low TSH level Code(s): R94.6 - ABNORMAL RESULTS OF THYROID FUNCTION STUDIES (12) Diarrhea Code(s): R19.7 - DIARRHEA, UNSPECIFIED Qualifiers: Diarrhea type: infectious Qualified Code(s): A09 - Infectious gastroenteritis and colitis, unspecified (13) Leukocytosis Code(s): D72.829 - ELEVATED WHITE BLOOD CELL COUNT, UNSPECIFIED (14) Hyperthyroidism Code(s): E05.90 - THYROTOXICOSIS, UNSP WITHOUT THYROTOXIC CRISIS OR STORM Assessment/Plan (1) SBO (small bowel obstruction) Assessment/Plan: partial sbo, kub abd improved pt denies nausea/vomiting bs +, flatus +, +bm tolerating regular diet antiemetics prn ambulate as tolerated PT Surgery following Code(s): K56.609 - UNSP INTESTNL OBST, UNSP TO PARTIAL VERSUS COMPLETE OBST (2) RACHELLE (acute kidney injury) Assessment/Plan: improved Code(s): N17.9 - ACUTE KIDNEY FAILURE, UNSPECIFIED (3) Atrial fibrillation with rapid ventricular response Assessment/Plan: afib w/ rvr, hr in 110s, pt asymptomatic ekg noted not on AC due to frequent falls metoprolol/ cardizem cardiology following Code(s): I48.91 - UNSPECIFIED ATRIAL FIBRILLATION (4) Parkinson disease Assessment/Plan: chronic dystonia, bradykinisia with intermittent confusion home med: rytary 36.25/145 2 caps bid followed by outpt neurology dysphagia whole diet when diet advanced Code(s): G20 - PARKINSON'S DISEASE (5) Peripheral vascular disease Assessment/Plan: s/p angiogram, stent lle , 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 continue plavix Code(s): I73.9 - PERIPHERAL VASCULAR DISEASE, UNSPECIFIED (6) HTN (hypertension) Assessment/Plan: controlled continue current regimen Code(s): I10 - ESSENTIAL (PRIMARY) HYPERTENSION Qualifiers: Hypertension type: essential hypertension Qualified Code(s): I10 - Essential (primary) hypertension (7) Bradykinesia Assessment/Plan: secondary to PD chronic Code(s): R25.8 - OTHER ABNORMAL INVOLUNTARY MOVEMENTS (8) Hypophonia Assessment/Plan: chronic as above Code(s): R49.8 - OTHER VOICE AND RESONANCE DISORDERS (9) Hypokalemia Assessment/Plan: improved secondary to reduced po intake/gi losses kcl po 40meq will monitor Code(s): E87.6 - HYPOKALEMIA (10) Hypomagnesemia Assessment/Plan: as above 2g iv mag ordered magox 800mg po monitor bmp Code(s): E83.42 - HYPOMAGNESEMIA (11) Hyperthyroidism Assessment/Plan: referred to endocrine last admission, pt did not f/u during this admission, tsh <0.01 /free t3/t4 elevated endocrine consult appreciated pt started on tapazole endocrine following Code(s): E05.90 - THYROTOXICOSIS, UNSP WITHOUT THYROTOXIC CRISIS OR STORM (12) Diarrhea Assessment/Plan: improving cdiff antigen positive/toxin neg flagyl day 7 ID following Code(s): R19.7 - DIARRHEA, UNSPECIFIED (13) Leukocytosis Assessment/Plan: mildly elevated secondary to cdiff/psbo chest xray, ua/uc, abd kub ordered ID following Code(s): D72.829 - ELEVATED WHITE BLOOD CELL COUNT, UNSPECIFIED
[2017-07-24] MEDS: CLOPIDOGREL BISULFATE 75 MG TABLET (FP) PO SCH (11:48)
[2017-07-24] MEDS: METHIMAZOLE 10 MG TABLET (FP) PO SCH ×2 (11:49→23:19)
[2017-07-24] MEDS ORDERED: ONDANSETRON *ODT* 4 MG TABLET SL PRN (12:00)
--- NOTE | 2017-07-24 14:09 | PN ---
Progress Note, Physician History of Present Illness: patient stable doing well wbc has decreased tolerating diet feels better - Current Medication List Current Medications: Active Medications Acetaminophen (Tylenol -) 650 mg PO Q6H PRN PRN Reason: PAIN LEVEL 4 - 6 Carbidopa/Levodopa (Sinemet *Cr* 50/200 -) 1 combo PO BID [facility] Last Admin: 07/24/17 11:49 Dose: 1 combo Clopidogrel Bisulfate (Plavix -) 75 mg PO DAILY [facility] Last Admin: 07/24/17 11:48 Dose: 75 mg Diltiazem HCl (Cardizem Cd -) 360 mg PO DAILY [facility] Last Admin: 07/24/17 11:48 Dose: 360 mg Metronidazole (Flagyl 500mg Premixed Ivpb -) 500 mg in 100 mls @ 100 mls/hr IVPB Q8H-IV [facility] Last Admin: 07/24/17 11:48 Dose: 100 mls/hr Methimazole (Tapazole -) 20 mg PO BID [facility] Last Admin: 07/24/17 11:49 Dose: 20 mg Metoprolol Succinate (Toprol Xl -) 50 mg PO DAILY [facility] Last Admin: 07/24/17 11:49 Dose: 50 mg Ondansetron HCl (Zofran Odt -) 4 mg SL Q8H PRN PRN Reason: NAUSEA - Objective Vital Signs: Vital Signs Temperature 98.6 F 07/24/17 06:00 Pulse Rate 100 H 07/24/17 06:00 Respiratory Rate 20 07/24/17 06:00 Blood Pressure 116/70 07/24/17 06:00 O2 Sat by Pulse Oximetry (%) 98 07/23/17 22:00 Constitutional: Yes: No Distress, Calm Cardiovascular: Yes: Regular Rate and Rhythm Respiratory: Yes: Regular, CTA Bilaterally Gastrointestinal: Yes: Normal Bowel Sounds, Soft Musculoskeletal: Yes: WNL Extremities: Yes: WNL Neurological: Yes: Alert, Oriented Psychiatric: Yes: Alert, Oriented Assessment/Plan looking at the patient and her dirrhoea and antigen positive i would at the moment hold off on starting anything as i think this is overflow dirrhoea Problem List - Problems (1) SBO (small bowel obstruction) Code(s): K56.609 - UNSP INTESTNL OBST, UNSP TO PARTIAL VERSUS COMPLETE OBST (2) RACHELLE (acute kidney injury) Code(s): N17.9 - ACUTE KIDNEY FAILURE, UNSPECIFIED (3) Atrial fibrillation with rapid ventricular response Code(s): I48.91 - UNSPECIFIED ATRIAL FIBRILLATION (4) Parkinson disease Code(s): G20 - PARKINSON'S DISEASE (5) Peripheral vascular disease Code(s): I73.9 - PERIPHERAL VASCULAR DISEASE, UNSPECIFIED (6) HTN (hypertension) Code(s): I10 - ESSENTIAL (PRIMARY) HYPERTENSION Qualifiers: Hypertension type: essential hypertension Qualified Code(s): I10 - Essential (primary) hypertension (7) Bradykinesia Code(s): R25.8 - OTHER ABNORMAL INVOLUNTARY MOVEMENTS (8) Hypophonia Code(s): R49.8 - OTHER VOICE AND RESONANCE DISORDERS (9) Hypokalemia Code(s): E87.6 - HYPOKALEMIA (10) Hypomagnesemia Code(s): E83.42 - HYPOMAGNESEMIA (11) Low TSH level Code(s): R94.6 - ABNORMAL RESULTS OF THYROID FUNCTION STUDIES (12) Diarrhea Code(s): R19.7 - DIARRHEA, UNSPECIFIED plan continue current mgmt if patient tolerates diet can switch to oral flagyl continue falgyl orally a total course of 10 days
[2017-07-24 14:34] LABS: ANION GAP 8 (8-16); BASO % 0.2 % (0-2.0); BLOOD UREA NITROGEN 5 mg/dL (7-18); CALCIUM 8.6 mg/dL (8.5-10.1); CHLORIDE 101 mmol/L (98-107); CO2 30 mmol/L (21-32); CREATININE 0.3 mg/dL (0.55-1.02); EOS % 1.5 % (0-4.5); GLUCOSE,RANDOM 112 mg/dL (74-106); HEMATOCRIT 33.2 % (32.4-45.2); HEMOGLOBIN 10.8 GM/dL (10.7-15.3); LYMPH % 15.7 % (8-40); MAGNESIUM 1.5 mg/dL (1.8-2.4); MCH 26.8 pg (25.7-33.7); MCHC 32.5 g/dl (32.0-36.0); MEAN CELL VOLUME 82.6 fl (80-96); MEAN PLT VOLUME 8.3 fl (7.5-11.1); MONO % 7.1 % (3.8-10.2); NEUT % 75.5 % (42.8-82.8); PHOSPHOROUS 2.6 mg/dL (2.5-4.9); PLATELET COUNT 143 K/MM3 (134-434); RBC 4.02 M/mm3 (3.60-5.2); RDW 16.1 % (11.6-15.6); SODIUM 139 mmol/L (136-145); WHITE BLOOD COUNT 12.4 K/mm3 (4.0-10.0)
[2017-07-24] MEDS ORDERED: MAGNESIUM OXIDE 400 MG TABLET (FP) PO ONE ×2 (14:42→15:30)
[2017-07-24] MEDS ORDERED: MAGNESIUM SULF 50% (8.12 MEQ/2 ML-1 GM VIAL) IVPB ONE (14:42)
[2017-07-24] MEDS: MAGNESIUM 1GM/D5W - 1 GM/100 ML IVPB IVPB SCH ×2 (15:57→17:24)
[2017-07-25 06:01] VITALS: TEMP 98.3
[2017-07-25 07:36] LABS: BASO % 0.3 % (0-2.0); EOS % 1.7 % (0-4.5); HEMATOCRIT 31.9 % (32.4-45.2); HEMOGLOBIN 10.5 GM/dL (10.7-15.3); LYMPH % 20.4 % (8-40); MCH 26.8 pg (25.7-33.7); MCHC 32.8 g/dl (32.0-36.0); MEAN CELL VOLUME 81.6 fl (80-96); MEAN PLT VOLUME 8.2 fl (7.5-11.1); MONO % 6.8 % (3.8-10.2); NEUT % 70.8 % (42.8-82.8); PLATELET COUNT 145 K/MM3 (134-434); RBC 3.91 M/mm3 (3.60-5.2); RDW 16.1 % (11.6-15.6); WHITE BLOOD COUNT 13.1 K/mm3 (4.0-10.0)
[2017-07-25 07:54] LABS: ANION GAP 4 (8-16); BLOOD UREA NITROGEN 7 mg/dL (7-18); CALCIUM 8.7 mg/dL (8.5-10.1); CHLORIDE 101 mmol/L (98-107); CO2 31 mmol/L (21-32); CREATININE 0.3 mg/dL (0.55-1.02); GLUCOSE,RANDOM 100 mg/dL (74-106); MAGNESIUM 1.8 mg/dL (1.8-2.4); PHOSPHOROUS 3.1 mg/dL (2.5-4.9); POTASSIUM 4.7 mmol/L (3.5-5.1); SODIUM 136 mmol/L (136-145)
[2017-07-25] MEDS: CLOPIDOGREL BISULFATE 75 MG TABLET (FP) PO SCH (10:34)
[2017-07-25] MEDS: METHIMAZOLE 10 MG TABLET (FP) PO SCH (10:35)
[2017-07-25] MEDS ORDERED: MAGNESIUM OXIDE 400 MG TABLET (FP) PO ONE (11:45)
--- NOTE | 2017-07-25 11:56 | PN ---
Progress Note (short form) - Note Progress Note: s: no cp sob palps dizzy; has cdiff, sxs improving o: Vital Signs Period Temp Pulse Resp BP Sys/Watkins Pulse Ox Last 24 Hr 98.0 F-98.3 F 106-135 20-112 110-130/68-74 98 nad, calm, cachectic no jvd irregularly, irregular nl s1s2 no mrg cta bl poor eff aaox3 no le e/c/c abd nt nd pos bs no jaundice diaphoresis Current Medications Generic Name Dose Route Start Last Admin Trade Name Freq PRN Reason Stop Dose Admin Acetaminophen 650 mg 07/17/17 20:36 Tylenol - PO Q6H PRN PAIN LEVEL 4 - 6 Carbidopa/Levodopa 1 combo 07/17/17 13:15 07/25/17 10:35 Sinemet *Cr* 50/200 - PO 1 combo BID MELANY Administration Clopidogrel Bisulfate 75 mg 07/18/17 12:00 07/25/17 10:34 Plavix - PO 75 mg DAILY MELANY Administration Diltiazem HCl 360 mg 07/20/17 10:01 07/25/17 10:34 Cardizem Cd - PO 360 mg DAILY MELANY Administration Metronidazole 500 mg in 100 mls @ 100 mls/hr 07/18/17 22:45 07/25/17 10:34 Flagyl 500mg Premixed Ivpb - IVPB 100 mls/hr Q8H-IV MELANY Administration Methimazole 20 mg 07/20/17 17:30 07/25/17 10:35 Tapazole - PO 20 mg BID MELANY Administration Metoprolol Succinate 50 mg 07/17/17 10:00 07/25/17 10:34 Toprol Xl - PO 50 mg DAILY MELANY Administration Ondansetron HCl 4 mg 07/24/17 12:00 Zofran Odt - SL Q8H PRN NAUSEA CBC, BMP 07/25/17 07:15 07/25/17 07:15 ekg: afib, 159 bpm. nl qtc, no ischemic changes. cxr: clear lungs stress 03/2017: baseline afib, no ischemic changes. inferior artifact. no ischemia/infarct. nl ef. echo 10/2016: nl lv/rv, mod mr, mild tr. 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 sbo, cdiff: -on abx -plans per gi, ID afib -cont dilt, bb-->dilt increased to 360 here due to rvr at times, now improved -recurrent frequent falls. fall/bleeding risk thought to outweigh benefit of AC. con't plavix (asa allergy) monotherapy instead of AC. htn - stable pvd/AAA/+ tobacco - con't plavix. not on statin, will defer to outpatient md's. - smoking cessation
--- NOTE | 2017-07-25 14:13 | PN ---
Progress Note, Physician History of Present Illness: patient stable doing well wbc marginally increased tolerating diet feels better - Current Medication List Current Medications: Active Medications Acetaminophen (Tylenol -) 650 mg PO Q6H PRN PRN Reason: PAIN LEVEL 4 - 6 Carbidopa/Levodopa (Sinemet *Cr* 50/200 -) 1 combo PO BID [facility] Last Admin: 07/25/17 10:35 Dose: 1 combo Clopidogrel Bisulfate (Plavix -) 75 mg PO DAILY [facility] Last Admin: 07/25/17 10:34 Dose: 75 mg Diltiazem HCl (Cardizem Cd -) 360 mg PO DAILY [facility] Last Admin: 07/25/17 10:34 Dose: 360 mg Metronidazole (Flagyl 500mg Premixed Ivpb -) 500 mg in 100 mls @ 100 mls/hr IVPB Q8H-IV [facility] Last Admin: 07/25/17 10:34 Dose: 100 mls/hr Methimazole (Tapazole -) 20 mg PO BID [facility] Last Admin: 07/25/17 10:35 Dose: 20 mg Metoprolol Succinate (Toprol Xl -) 50 mg PO DAILY [facility] Last Admin: 07/25/17 10:34 Dose: 50 mg Ondansetron HCl (Zofran Odt -) 4 mg SL Q8H PRN PRN Reason: NAUSEA - Objective Vital Signs: Vital Signs Temperature 98.3 F 07/25/17 05:59 Pulse Rate 106 H 07/25/17 05:59 Respiratory Rate 112 H 07/25/17 05:59 Blood Pressure 110/68 07/25/17 05:59 O2 Sat by Pulse Oximetry (%) 98 07/24/17 21:00 Constitutional: Yes: No Distress, Calm, Thin Cardiovascular: Yes: Regular Rate and Rhythm Respiratory: Yes: Regular, CTA Bilaterally Gastrointestinal: Yes: Normal Bowel Sounds, Soft Musculoskeletal: Yes: WNL Extremities: Yes: WNL Neurological: Yes: Alert, Oriented Psychiatric: Yes: Alert, Oriented Labs: CBC, BMP 07/25/17 07:15 07/25/17 07:15 Assessment/Plan looking at the patient and her dirrhoea and antigen positive i would at the moment hold off on starting anything as i think this is overflow dirrhoea Problem List - Problems (1) SBO (small bowel obstruction) Code(s): K56.609 - UNSP INTESTNL OBST, UNSP TO PARTIAL VERSUS COMPLETE OBST (2) RACHELLE (acute kidney injury) Code(s): N17.9 - ACUTE KIDNEY FAILURE, UNSPECIFIED (3) Atrial fibrillation with rapid ventricular response Code(s): I48.91 - UNSPECIFIED ATRIAL FIBRILLATION (4) Parkinson disease Code(s): G20 - PARKINSON'S DISEASE (5) Peripheral vascular disease Code(s): I73.9 - PERIPHERAL VASCULAR DISEASE, UNSPECIFIED (6) HTN (hypertension) Code(s): I10 - ESSENTIAL (PRIMARY) HYPERTENSION Qualifiers: Hypertension type: essential hypertension Qualified Code(s): I10 - Essential (primary) hypertension (7) Bradykinesia Code(s): R25.8 - OTHER ABNORMAL INVOLUNTARY MOVEMENTS (8) Hypophonia Code(s): R49.8 - OTHER VOICE AND RESONANCE DISORDERS (9) Hypokalemia Code(s): E87.6 - HYPOKALEMIA (10) Hypomagnesemia Code(s): E83.42 - HYPOMAGNESEMIA (11) Low TSH level Code(s): R94.6 - ABNORMAL RESULTS OF THYROID FUNCTION STUDIES (12) Diarrhea Code(s): R19.7 - DIARRHEA, UNSPECIFIED plan continue current mgmt if patient tolerates diet can switch to oral flagyl i think we should extend flagyl duration for 14 days
[2017-07-25 14:36] VITALS: BP 110/70; PULSE 92
--- NOTE | 2017-07-25 15:18 | DS ---
Physical Examination Vital Signs: Vital Signs Temperature 98.3 F 07/25/17 05:59 Pulse Rate 92 H 07/25/17 11:00 Respiratory Rate 18 07/25/17 11:00 Blood Pressure 110/70 07/25/17 11:00 O2 Sat by Pulse Oximetry (%) 98 07/25/17 09:00 Constitutional: Yes: No Distress, Thin Cardiovascular: Yes: Tachycardia, Pulse Irregular. No: JVD, Gallop Respiratory: Yes: WNL, Regular, CTA Bilaterally. No: SOB, Tachypnea Gastrointestinal: Yes: WNL, Normal Bowel Sounds, Soft. No: Distention, Tenderness Renal/: Yes: WNL Edema: No Neurological: Yes: WNL, Alert, Oriented, Confusion (intermittent) Psychiatric: Yes: WNL, Alert, Oriented Labs: CBC, BMP 07/25/17 07:15 07/25/17 07:15 Discharge Summary Reason For Visit: SMALL BOWEL OBSTRUCTIION Current Active Problems Severe malnutrition (Acute) SBO (small bowel obstruction) (Acute) RACHELLE (acute kidney injury) (Acute) Hypokalemia (Acute) Hypomagnesemia (Acute) Diarrhea (Acute) Leukocytosis (Acute) Hyperthyroidism (Acute) Hospital Course: is a pleasant 72 year old female who was admitted for PSBO. She has been successfully treated conservatively. She is tolerating regular diet. She denies any nausea, vomiting. Surgery consult appreciated. Diarrhea resolved, found to have cdiff antigen +, toxin neg, ID consulted, pt on flagyl, pt can continue po flagyl for 3 more days to complete treatment. She was also found to have low tsh with elevated freet3/t4 which was also found last admission where pt and were advised to f/u with endocrine which they didn't. Endocrine consulted, pt started on tapazole bid. Otherwise, pt doing well today. No complaints of n/v/d, Tolerating regular diet. Ambulating 40ft w/ PT. Recommend SNF for rehabilitation. Pt has not been in agreement for SNF before, reinforced again today and pt in agreement. F/U as directed. Condition: Fair - Instructions Diet, Activity, Other Instructions: RESUME PREV DIET ,ACTIVITY ANTIBIOTICS X 3 MORE DAYS , TAKE WITH MEALS F/U WITH AND ENDOCRINE DIRECTED Referrals: Manohar Ramirez MD [Primary Care Provider] - 1 Week Anusha Mi MD [Staff Physician] - 2 Weeks (HYPERTHYROID F/U ) Disposition: HALF-WAY FACILITY - Home Medications Comprehensive Discharge Medication List: Ambulatory Orders Metoprolol Succinate [Toprol XL -] 50 mg PO DAILY tab.sr 10/30/16 Clopidogrel Bisulfate [Plavix] 75 mg PO DAILY 04/30/17 Acetaminophen [Tylenol .Regular Strength -] 650 mg PO Q6H PRN tablet 05/16/17 Carbidopa/Levodopa [Rytary ER 36.25 mg-145 mg Cap] 2 each PO BID #60 capsule.er 07/17/17 Acetaminophen [Tylenol .Regular Strength -] 650 mg PO Q6H PRN tablet 07/25/17 Diltiazem Cd [Cardizem Cd -] 360 mg PO DAILY #30 cap.cd.24h 07/25/17 Lactobacillus Acidophilus [Acidophilus Lactobacillus] 1 each PO DAILY #3 capsule 07/25/17 Methimazole [Tapazole -] 20 mg PO BID #60 tablet 07/25/17 metroNIDAZOLE [Flagyl -] 500 mg PO TID 3 Days #9 tablet 07/25/17
== END 2017-07-25 19:16 | DRG 388 ==
LOC: JER 12:54 → JERBED 17:57 → J5S 21:25 → J6S 07-19 14:00
PROVIDERS: ADMIT Internal Medicine; ATTEND Internal Medicine
DX: K56.609 Unspecified intestinal obstruction, unspecified as to partial versus complete obstruction (principal); E43 Unspecified severe protein-calorie malnutrition; N17.9 Acute kidney failure, unspecified; R64 Cachexia; Z68.1 Body mass index [BMI] 19.9 or less, adult; A04.72 Enterocolitis due to Clostridium difficile, not specified as recurrent; I48.91 Unspecified atrial fibrillation; E87.6 Hypokalemia; E83.42 Hypomagnesemia; E86.0 Dehydration; I71.4 Abdominal aortic aneurysm, without rupture; I10 Essential (primary) hypertension; E05.90 Thyrotoxicosis, unspecified without thyrotoxic crisis or storm; G20 Parkinson's disease; F17.210 Nicotine dependence, cigarettes, uncomplicated; I73.9 Peripheral vascular disease, unspecified; D64.9 Anemia, unspecified; E78.5 Hyperlipidemia, unspecified; Z79.01 Long term (current) use of anticoagulants; Z89.422 Acquired absence of other left toe(s); Z85.42 Personal history of malignant neoplasm of other parts of uterus; Z90.710 Acquired absence of both cervix and uterus; Z91.81 History of falling; R49.8 Other voice and resonance disorders
CPT/HCPCS: 36415; 71045-TC-FY; 74018-TC-FY; 74019-TC-FY; 74176-TC; 80048; 80053; 81003; 81015; 82550; 83735; 84100; 84439; 84443; 84445; 84481; 84484; 85025; 86376; 87040; 87086; 87324; 87449; 93005; 93010; 97116-GP; 97161-GP; 99284-25; J1644; J7030

== ENCOUNTER 2017-12-18 16:34 | Inpatient (IN) | payer OTHER ==
[2017-12-18] MEDS ORDERED: SODIUM CHLORIDE 0.9% 500 ML INFUS.BAG IV ONE (17:29)
--- NOTE | 2017-12-18 18:17 | PDOC ---
History of Present Illness - General Chief Complaint: Rectal Bleed Stated Complaint: R/O GI BLEED Time Seen by Provider: 12/18/17 17:12 - History of Present Illness Initial Comments: 72-year-old female, history of recent abdominal infection, C-Diff in October,. fib on cardizem, propanolol and plavix, Parkinson's disease, PVD, left toe amputations, AAA of 4.7 cm, MEDICAL ART THERAPIST cancer s/p surgery/chemo/xrt remotely SBO, is here with bloody diarrhea and LLQ abdominal pain. She reports that she was DCed from the hospital around 2 weeks ago. She has had C-diff in the past, and finished her last treatment for it on 11/23. Today she also reports dysuria, frequency and urgency. She denies any chest pain, SOB, or difficulty breathing. Past History - Past Medical History Allergies/Adverse Reactions: Allergies Allergy/AdvReac Type Severity Reaction Status Date / Time aspirin Allergy Verified 12/18/17 17:05 Penicillins Allergy Verified 12/18/17 17:05 Home Medications: Ambulatory Orders Acetaminophen 650 mg PO QID 11/25/17 Acetaminophen W/ Codeine #3 [Tylenol # 3 -] 1 tab PO TID 11/25/17 Amantadine HCl [Amantadine] 100 mg PO DAILY 11/25/17 Carbidopa/Levodopa [Rytary ER 36.25 mg-145 mg Cap] 1 each PO BID 11/25/17 Cholestyramine/Aspartame [Questran Light Packet -] 4 gm PO BID 11/25/17 Clopidogrel Bisulfate [Plavix] 75 mg PO DAILY 11/25/17 Diltiazem Cd [Cardizem Cd -] 180 mg PO DAILY 11/25/17 Lactobacillus Acidophilus [Acidophilus] 1 each PO DAILY 11/25/17 Multivit-Min/Iron Fum/Folic AC [Uykho-Csdmsqd-Hattjybp Tablet] 1 each PO DAILY 11/25/17 Potassium Chloride [K-Dur -] 20 meq PO DAILY 11/25/17 Propranolol HCl 60 mg PO TID 11/25/17 Sodium,Potassium Phosphates [Phos-Nak Packet] 1 each PO TID 11/25/17 Amino Acids/Protein Hydrolys [Prosource No Carb Liquid Pkt] 30 ml PO BID@0800, 1730 packet 12/01/17 Loperamide HCl [Imodium -] 2 mg PO Q8H PRN capsule 12/01/17 Magnesium Chloride [Slow-Mag -] 128 mg PO DAILY tablet.sa 12/01/17 Methimazole [Tapazole -] 20 mg PO Q12H tablet 12/01/17 Anemia: Yes Asthma: No Cancer: No Cardiac Disorders: Yes (afib, AAA) CVA: No COPD: No CHF: No DVT: No Dementia: No Diabetes: No GI Disorders: No Disorders: No HTN: Yes Hypercholesterolemia: Yes Liver Disease: No Seizures: No Thyroid Disease: No - Surgical History Abdominal Surgery: No Appendectomy: No Cardiac Surgery: No Cholecystectomy: No Lung Surgery: No Neurologic Surgery: No Orthopedic Surgery: No - Immunization History Immunization Up to Date: Yes - Suicide/Smoking/Psychosocial Hx Smoking History: Former smoker Have you smoked in the past 12 months: Yes Number of Cigarettes Smoked Daily: 5 If you are a former smoker, when did you quit?: august 2016 Information on smoking cessation initiated: No 'Breaking Loose' booklet given: 06/28/17 Hx Alcohol Use: No Drug/Substance Use Hx: No Substance Use Type: None Hx Substance Use Treatment: No Review of Systems - Review of Systems Comments:: 12/18/17 20:23 CONSTITUTIONAL: Present: Fever Absent: chills, diaphoresis, generalized weakness, malaise, loss of appetite HEENT: Absent: rhinorrhea, nasal congestion, throat pain, throat swelling, difficulty swallowing, mouth swelling, ear pain, eye pain, visual Changes CARDIOVASCULAR: Absent: chest pain, syncope, palpitations, irregular heart rate, lightheadedness , peripheral edema RESPIRATORY: Absent: cough, shortness of breath, dyspnea with exertion, orthopnea, wheezing, stridor, hemoptysis GASTROINTESTINAL: Present: Abdominal pain, diarrhea, hematochezia Absent: abdominal distension, nausea, vomiting, constipation, melena, GENITOURINARY: Present: dysuria, frequency, urgency. Absent: hesitancy, hematuria, flank pain, genital pain MUSCULOSKELETAL: Absent: myalgia, arthralgia, joint swelling SKIN: Absent: rash, itching, pallor HEMATOLOGIC/IMMUNOLOGIC: Absent: easy bleeding, easy bruising, lymphadenopathy, frequent infections ENDOCRINE: Absent: unexplained weight gain, unexplained weight loss, heat intolerance, cold intolerance NEUROLOGIC: Absent: headache, focal weakness or paresthesias, dizziness, unsteady gait, seizure, mental status changes, bladder or bowel incontinence PSYCHIATRIC: Absent: anxiety, depression, suicidal or homicidal ideation, hallucinations. *Physical Exam - Vital Signs Last Vital Signs Temp Pulse Resp BP Pulse Ox 98.7 F 78 14 95/60 96 12/18/17 16:39 12/18/17 16:39 12/18/17 16:39 12/18/17 16:39 12/18/17 16:39 - Physical Exam Comments: 12/18/17 20:24 GENERAL: Awake and alert. No acute distress. HEENT: Normocephalic, atraumatic. PERRLA, EOMI. Moist mucous membranes. Oropharynx is clear. NECK: Supple. Full ROM. No JVD. No thyromegaly. No lymphadenopathy. CARDIOVASCULAR: Regular rate and rhythm. No murmurs, rubs, or gallops. Distal pulses are 2+ and symmetric. PULMONARY: No evidence of respiratory distress. Lungs clear to auscultation bilaterally. No wheezing, rales or rhonchi. ABDOMINAL: There is TTP in the LLQ. Otherwise, the abdomen is soft. Non-tender. Non- distended. No rebound or guarding. No organomegaly. Normoactive bowel sounds. MUSCULOSKELETAL limited range of motion at most joints. multiple bony deformities. No CVA tenderness. EXTREMITIES: No cyanosis. No clubbing. No edema. No calf tenderness. SKIN: Warm and dry. Normal capillary refill. No rashes. No jaundice. NEUROLOGICAL: Alert, awake, appropriate. Cranial nerves 2-12 grossly intact. Normal speech. PSYCHIATRIC: Cooperative. Good eye contact. Appropriate mood and affect. ED Treatment Course - LABORATORY CBC & Chemistry Diagram: 12/18/17 08:00 12/18/17 08:00 - ADDITIONAL ORDERS Additional order review: Laboratory Results 12/18/17 17:29 Stool Occult Blood Positive Medical Decision Making - Medical Decision Making 12/18/17 20:35 72 yo F here with bloody diarrhea, LLQ abdominal pain for 2 weeks. She has a hx of CDIFF and the smell of her diarrhea reeks of CDIFF. This is most likely a cdiff patient. Given her abdominal pain we will do an abdominal CT to look for an abscess or other abdominal infection. Plan: Cbc, cmp, ekg, type and screen, ua/uc, blood and stool cultures, Cdiff toxin, fluids, Abx, CTAP, straight cath, re-assess. Will start patient on metronidazole and cipro for likely abdominal infection. After CT read will admit patient. CT scan showed transverse colitis as well as descending colitis. Patient will be admitted. Abx started in ER. Cdiff toxin pending. 12/18/17 21:38 *DC/Admit/Observation/Transfer Diagnosis at time of Disposition: Colitis, BRBPR (bright red blood per rectum) - Discharge Dispostion Condition at time of disposition: Guarded Decision to Admit order: Yes - Referrals Referrals: Manohar Ramirez MD [Primary Care Provider] - - Patient Instructions - Post Discharge Activity
[2017-12-18 18:23] LABS: BASO % 0.3 % (0-2.0); EOS % 0.8 % (0-4.5); HEMATOCRIT 32.1 % (32.4-45.2); HEMOGLOBIN 10.4 GM/dL (10.7-15.3); LYMPH % 24.2 % (8-40); MCHC 32.4 g/dl (32.0-36.0); MEAN CELL VOLUME 92.5 fl (80-96); MEAN PLT VOLUME 6.8 fl (7.5-11.1); NEUT % 70.7 % (42.8-82.8); PLATELET COUNT 465 K/MM3 (134-434); RBC 3.47 M/mm3 (3.60-5.2); RDW 22.9 % (11.6-15.6); WHITE BLOOD COUNT 9.8 K/mm3 (4.0-10.0)
[2017-12-18 18:35] LABS: INR 1.12 (0.83-1.09); PROTHROMBIN TIME (PATIENT) 12.6 SEC (9.7-13.0)
[2017-12-18 18:53] LABS: ALBUMIN 1.8 g/dl (3.4-5.0); ALK PHOS 84 U/L (45-117); ANION GAP 12 MMOL/L (8-16); BILIRUBIN,TOTAL 0.2 mg/dL (0.2-1); BLOOD UREA NITROGEN 17 mg/dL (7-18); CALCIUM 8.6 mg/dL (8.5-10.1); CHLORIDE 103 mmol/L (98-107); CO2 23 mmol/L (21-32); CREATININE 0.7 mg/dL (0.55-1.3); GLUCOSE,RANDOM 81 mg/dL (74-106); POTASSIUM 4.1 mmol/L (3.5-5.1); SGOT/AST 8 U/L (15-37); SGPT/ALT 9 U/L (13-61); SODIUM 138 mmol/L (136-145); TOT PROT 6.8 g/dl (6.4-8.2)
[2017-12-18 18:53] LABS: URINE APPEARANCE CLOUDY; URINE BILIRUBIN NEGATIVE (<2.0 mg/dL); URINE COLOR YELLOW; URINE GLUCOSE (UA) NEGATIVE (NEGATIVE); URINE KETONE NEGATIVE (NEGATIVE); URINE NITRITE POSITIVE (NEGATIVE); URINE UROBILINOGEN NEGATIVE mg/dL (0.2-1.0)
[2017-12-18 18:57] LABS: URINE LEUK ESTERASE 3+ (NEGATIVE); URINE PROTEIN 1+ (NEGATIVE)
[2017-12-18 19:06] LABS: EPI CELLS RARE /HPF (FEW); URINE BACTERIA MANY /hpf (NONE SEEN); URINE HYALINE CAST 6 /lpf; URINE MUCUS RARE
[2017-12-18] MEDS ORDERED: CIPROFLOXACIN 400 MG/D5W 400 MG/200 ML IVPB IVPB ONE (19:37)
--- NOTE | 2017-12-18 19:47 | PDOC ---
Attending Attestation - HPI HPI: 12/18/17 19:51 The patient is a 72 year old female with a significant past medical history of Parkinsons disease, C Diff, A-fib on (cardizem, propranolol, and plavix) who presents to the ED with diarrhea, rectal bleeding, and dysuria. Patient reports multiple episodes of watery loose stools for several weeks. As per , the patient has multiple episodes of blood in her diaper for several weeks. Patient also reports a burning like sensation when urinating for the past several days. Denies fever or chills. Denies abdominal pain. Denies any other symptoms. Documentation prepared by Amna Martinez, acting as medical technologist chief for Mallory Chiu DO - Physicial Exam PE: 12/18/17 19:51 Constitutional: + speaks very softly. Awake, alert, oriented. No acute distress. Head: Normocephalic. Atraumatic Eyes: PERRL. EOMI. Conjunctivae are not pale. ENT: Mucous membranes are moist and intact. Posterior pharynx without exudates or erythema. Uvula midline. Neck: Supple. Full ROM. No lymphadenopathy. Cardiovascular: Regular rate. Regular rhythm. S1, S2 regular. Distal pulses are 2+ and symmetric. Pulmonary/Chest: No evidence of respiratory distress. Clear to auscultation bilaterally No wheezing, rales or rhonchi. Abdominal: + mild left lower quadrant tenderness. Soft and non-distended. No rebound, guarding or rigidity. No organomegaly. No palpable masses. Good bowel sounds. Back: No CVA tenderness. Musculoskeletal: No edema. No cyanosis. No clubbing. Full range of motion in all extremities. Nocalf tenderness. Radial/pedal pulses are intact and 2+ bilaterally Skin: Skin is warm and dry. No petechiae. No purpura. Neurological: Alert and oriented to person, place, and time. Cranial nerves II -XII are grossly intact. Normal speech. Strength is grossly symmetric. No sensory deficits. Psychiatric: Good eye contact. Normal interaction, affect and behavior. <Amna Martinez - Last Filed: 12/18/17 19:51> - Resident Resident Name: Nikko Joaquin - ED Attending Attestation I have performed the following: I have examined & evaluated the patient, The case was reviewed & discussed with the resident, I agree w/resident's findings & plan, Exceptions are as noted - Medical Decision Making 12/18/17 19:44 I, Dr. Mallory Chiu, DO, attest that this document has been prepared under my direction and personally reviewed by me in its entirety. I further attest, that it accurately reflects all work, treatment, procedures and medical decision -making performed by me. 12/18/17 19:44 a/p: 72yo female with diarrhea, BRBPR, and dysuria -hx of c diff -last c diff in october was negative -pt has been having blood in stool for weeks -pt states burning when she pees today -will send labs, ct abd/pelvis, stool for c diff and culture -will send ua -will monitor and reassess 12/18/17 21:33 pt with extensive colitis from transverse to rectosigmoid juction abx started pt will need admission also with UTI PMD Dr. Ramirez who admits to Dr. Serra who is covered by [employer] 12/18/17 22:22 resident discussed the [facility] who accepts pt to service <Mallory Chiu - Last Filed: 12/18/17 22:23> Heart Score/ECG Review - ECG Intrepretation Comment:: 12/18/17 19:50 afib at 67, nl axis, nl interval, no acute st/t wave findings <Mallory Chiu - Last Filed: 12/18/17 22:23>
[2017-12-18 22:43] LABS: ADD RBC MORPHOLOGY YES
[2017-12-18 22:44] LABS: ANISOCYTOSIS 3+; MACROCYTOSIS 1+; OVALOCYTE 1+; PLATELET ESTIMATE SLT INCREASE
--- NOTE | 2017-12-18 22:45 | HP ---
CHIEF COMPLAINT: diarrhea PCP: Ashley HISTORY OF PRESENT ILLNESS: This is a 72 year old female with a past medical history significant for colitis with C diff presented to the ED with diarrhea today with blood. reports stool has been bloody since discharge from the hospital 2 weeks ago. ER course was notable for: (1) WBC 9.8 (2) Stool Occ + (3) H/H 10.4/32.1 Recent Travel: Pt denies PAST MEDICAL HISTORY: Afib, HTN, HLD, PVD, AAA, Parkinson's disease, [employer] CA, hyperthyroid, anxiety, C diff colitis 10/2017 PAST SURGICAL HISTORY: R popliteal stent L toe amputations Social History: Smoking: quit august 2016, previous heavy smoker x 50y Alcohol: pt denies Drugs: pt denies Family History: unk Allergies aspirin Allergy (Verified 12/18/17 17:05) Penicillins Allergy (Verified 12/18/17 17:05) HOME MEDICATIONS: 3 Medication Instructions Recorded Acetaminophen 650 mg PO QID 11/25/17 Acetaminophen W/ Codeine #3 1 tab PO TID 11/25/17 [Tylenol # 3 -] Amantadine HCl [Amantadine] 100 mg PO DAILY 11/25/17 Carbidopa/Levodopa [Rytary ER 1 each PO BID 11/25/17 36.25 mg-145 mg Cap] Cholestyramine/Aspartame [Questran 4 gm PO BID 11/25/17 Light Packet -] Clopidogrel Bisulfate [Plavix] 75 mg PO DAILY 11/25/17 Diltiazem Cd [Cardizem Cd -] 180 mg PO DAILY 11/25/17 Lactobacillus Acidophilus 1 each PO DAILY 11/25/17 [Acidophilus] Multivit-Min/Iron Fum/Folic AC 1 each PO DAILY 11/25/17 [Trqob-Mnfgtik-Tmebnwal Tablet] Potassium Chloride [K-Dur -] 20 meq PO DAILY 11/25/17 Propranolol HCl 60 mg PO TID 11/25/17 Sodium,Potassium Phosphates 1 each PO TID 11/25/17 [Phos-Nak Packet] Amino Acids/Protein Hydrolys 30 ml PO BID@0800,1730 packet 12/01/17 [Prosource No Carb Liquid Pkt] Loperamide HCl [Imodium -] 2 mg PO Q8H PRN capsule 12/01/17 Magnesium Chloride [Slow-Mag -] 128 mg PO DAILY tablet.sa 12/01/17 Methimazole [Tapazole -] 20 mg PO Q12H tablet 12/01/17 REVIEW OF SYSTEMS CONSTITUTIONAL: Absent: fever, chills, diaphoresis, generalized weakness, malaise, loss of appetite, weight change HEENT: Absent: rhinorrhea, nasal congestion, throat pain, throat swelling, difficulty swallowing, mouth swelling, ear pain, eye pain, visual changes CARDIOVASCULAR: Absent: chest pain, syncope, palpitations, irregular heart rate, lightheadedness , peripheral edema RESPIRATORY: Absent: cough, shortness of breath, dyspnea with exertion, orthopnea, wheezing, stridor, hemoptysis GASTROINTESTINAL: Present: diarrhea, hematochezia Absent: abdominal pain, abdominal distension, nausea, vomiting, constipation, melena GENITOURINARY: Absent: dysuria, frequency, urgency, hesitancy, hematuria, flank pain, genital pain MUSCULOSKELETAL: Absent: myalgia, arthralgia, joint swelling, back pain, neck pain SKIN: Absent: rash, itching, pallor HEMATOLOGIC/IMMUNOLOGIC: Absent: easy bleeding, easy bruising, lymphadenopathy, frequent infections ENDOCRINE: Absent: unexplained weight gain, unexplained weight loss, heat intolerance, cold intolerance NEUROLOGIC: Absent: headache, focal weakness or paresthesias, dizziness, unsteady gait, seizure, mental status changes, bladder or bowel incontinence PSYCHIATRIC: Absent: anxiety, depression, suicidal or homicidal ideation, hallucinations. PHYSICAL EXAMINATION Vital Signs - 24 hr 3 12/18/17 12/18/17 16:39 16:44 Temperature 98.7 F Pulse Rate 78 Respiratory 14 Rate Blood Pressure 95/60 O2 Sat by Pulse 96 100 Oximetry (%) GENERAL: Awake, alert, and oriented to person, place and year; in no acute distress. HEAD: Normal with no signs of trauma. temporal wasting noted EYES: Pupils equal, round and reactive to light, extraocular movements intact, sclera anicteric, conjunctiva clear. No lid lag. EARS, NOSE, THROAT: Ears normal, nares patent, oropharynx clear without exudates. Moist mucous membranes. NECK: Normal range of motion, supple without lymphadenopathy, JVD, or masses. LUNGS: Breath sounds equal, clear to auscultation bilaterally. No wheezes, and no crackles. No accessory muscle use. HEART: Regular rate and rhythm, normal S1 and S2 without murmur, rub or gallop. ABDOMEN: Soft, nontender, not distended, normoactive bowel sounds, no guarding, no rebound, no masses. No hepatomegaly or splenomegaly. MUSCULOSKELETAL: Normal range of motion at all joints. No bony deformities or tenderness. No CVA tenderness. + cachexic UPPER EXTREMITIES: 2+ pulses, warm, well-perfused. No cyanosis. No clubbing. No peripheral edema. LOWER EXTREMITIES: 2+ pulses, warm, well-perfused. No calf tenderness. No peripheral edema. left toe amputations, 2nd and 3rd NEUROLOGICAL: Cranial nerves II-XII intact. Normal speech. PSYCHIATRIC: Cooperative. Good eye contact. Appropriate mood and affect. SKIN: Warm, dry, normal turgor, no rashes or lesions noted, normal capillary refill. Laboratory Results - last 24 hr 3 12/18/17 12/18/17 12/18/17 12/18/17 08:00 08:00 08:00 17:29 WBC 9.8 RBC 3.47 L Hgb 10.4 L Hct 32.1 L D MCV 92.5 D MCH 30.0 MCHC 32.4 RDW 22.9 H Plt Count 465 H MPV 6.8 L Absolute Neuts (auto) 6.9 Neutrophils % 70.7 Lymphocytes % 24.2 D Monocytes % 4.0 Eosinophils % 0.8 D Basophils % 0.3 Nucleated RBC % 0 Platelet Estimate Slt increase Platelet Comment Polychromasia 1+ Poikilocytosis 1+ Anisocytosis 3+ Macrocytosis 1+ Ovalocytes 1+ PT with INR 12.60 INR 1.12 H Sodium 138 Potassium 4.1 Chloride 103 Carbon Dioxide 23 Anion Gap 12 BUN 17 Creatinine 0.7 Creat Clearance w eGFR > 60 Random Glucose 81 Calcium 8.6 Total Bilirubin 0.2 AST 8 L ALT 9 L Alkaline Phosphatase 84 Total Protein 6.8 Albumin 1.8 L Urine Color Urine Appearance Urine pH Ur Specific Thayer Urine Protein Urine Glucose (UA) Urine Ketones Urine Blood Urine Nitrite Urine Bilirubin Urine Urobilinogen Ur Leukocyte Esterase Urine WBC (Auto) Urine RBC (Auto) Ur Epithelial Cells Urine Bacteria Hyaline Casts Urine Mucus Stool Occult Blood Positive Blood Type A POSITIVE Antibody Screen Negative 3 Urine Color Yellow 12/18/17 18:34 Urine Appearance Cloudy 12/18/17 18:34 Urine pH 5.0 (5.0-8.0) D 12/18/17 18:34 Ur Specific Thayer 1.023 (1.001-1.035) 12/18/17 18:34 Urine Protein 1+ (NEGATIVE) H 12/18/17 18:34 Urine Glucose (UA) Negative (NEGATIVE) 12/18/17 18:34 Urine Ketones Negative (NEGATIVE) 12/18/17 18:34 Urine Blood 1+ (NEGATIVE) H 12/18/17 18:34 Urine Nitrite Positive (NEGATIVE) 12/18/17 18:34 Urine Bilirubin Negative (<2.0 mg/dL) 12/18/17 18:34 Ur Leukocyte Esterase 3+ (NEGATIVE) H 12/18/17 18:34 Urine WBC (Auto) 230 12/18/17 18:34 Urine RBC (Auto) 8 12/18/17 18:34 Ur Epithelial Cells Rare /HPF (FEW) 12/18/17 18:34 Urine Bacteria Many /hpf (NONE SEEN) 12/18/17 18:34 Urine Mucus Rare 12/18/17 18:34 ECG Atrial fibrillation vent rate 67, QTC 395 nonspecific T wave abnormality Radiology Reports ABd/Pelvis CT with contrast There are mild bibasal atelectatic changes with interstitial thickening. Partially included consolidation/airspace disease in lingular segment of the left upper lobe that was seen on prior CT scan of the chest dated 10/19/2017. There is borderline cardiomegaly. Evaluation of the liver, spleen, pancreas, a partially distended gallbladder, both adrenal glands and both kidneys remain unremarkable. Aneurysmal dilatation of the distal abdominal aorta again seen measuring 4.4 x 4.4 cm in AP and transverse dimension with a thick intramural plaque. Narrowest diameter of its true enhancing lumen is 1.2 cm. No para-aortic free fluid or fluid collection is seen. There is no evidence of small bowel obstruction. Moderate amount of fecal residue in the colon. There is thickening and enhancement of the proximal and mid transverse colon as well as thickening and enhancement of the splenic flexure, descending and sigmoid colon down to the rectosigmoid junction compatible with colitis. There is edema and small amount of fluid around the rectosigmoid junction. There is prominent perirectal soft tissue suggestive of wall thickening. There is also evidence of presacral edema. Partially distended urinary bladder limiting evaluation of its wall. Retroverted atrophic uterus compatible with the patient's age. No free air is present in the abdomen and pelvis Marked degenerative disc disease at L5-S1 level with moderate degenerative disc disease at L3-L4 level. There is mild anterior wedging of L1 vertebral body mainly due to compression of its inferior endplate. T11-T12 moderate to marked degenerative disc disease Impression: See discussion above Aneurysmal dilatation of the infrarenal abdominal aorta measuring 6 cm in length and 4.4 cm in AP dimension with significant mural thickening/plaques in the 2 enhancing lumen measuring 1.2 cm in its narrowest diameter without occlusion. Dense calcified plaques involving the abdominal aorta bifurcation. Colitis involving most of the transverse colon, mainly its proximal and midportion as well as the entire descending colon from the splenic flexure and the sigmoid colon down to the rectosigmoid junction. There is significant edema/ stranding around the distal sigmoid colon and rectosigmoid junction with presacral edema. However, no gross fluid collection/abscess is identified. Reported By: Bjorn Reardon MD 12/18/172128 ASSESSMENT/PLAN: 72yF with PMH Afib, HTN, HLD, PVD, AAA, Parkinson's disease, [employer] [place], hyperthyroid, anxiety, C diff colitis 10/2017 presented to the ED with bloody diarrhea. Colitis, likely C diff - given flagyl and cipro in ED, cont - start po vancomycin - ID consult - GI consult - hold plavix - dc imodium - cont questran unless GI objects Afib - cont diltiazem, propranolol and dig for rate control HTN/HLD - cont diltiazem, propranolol Parkinson's disease - cont home meds or formulary equivalents Hyperthyroid - check TSH - cont tapazole protein calorie malnutrition - as evidenced by temporal wasting and overall cachexia - cont prosource - dietary eval DVT PPX - heparin deferred due to bleeding FEN - NS @ 75cc/hr - BMP in AM - clear liquid diet for now Dispo: Pt currently requires further inpatient monitoring. Visit type - Emergency Visit Emergency Visit: Yes ED Registration Date: 12/18/17 Care time: The patient presented to the Emergency Department on the above date and was hospitalized for further evaluation of their emergent condition. - New Patient This patient is new to me today: Yes Date on this admission: 12/18/17 - Critical Care Critical Care patient: No Hospitalist Screening - Colonoscopy Questionnaire Colonoscopy Questionnaire: Colonoscopy Questionnaire - Patient: 50 - 75 years old and never had a screening colonoscopy: Unknown History of colon or rectal polyps, or CA: Unknown History of IBD, Crohn's disease or UC: Unknown History of abdominal radiation therapy as a child: Unknown - Relative: 1 with colon or rectal CA, or polyps at age 60 or younger: Unknown Colon or rectal CA diagnosed at age 45 or younger: Unknown Multiple relatives with colon or rectal CA: Unknown - Outcome: Screening Result: Negative Screen
[2017-12-18] MEDS ORDERED: ACETAMINOPHEN 325 MG TABLET (FP) PO PRN (22:53)
[2017-12-18] MEDS ORDERED: ACETAMINOPHEN WITH CODEINE 300MG/30MG TABLET PO PRN (22:53)
[2017-12-19] MEDS: SODIUM CHLORIDE 1,000 ML IV SCH ×3 (00:07→23:04)
[2017-12-19] MEDS: VANCOMYCIN 250 MG/5 ML ORAL SOLUTION PO SCH ×4 (00:08→23:04)
[2017-12-19] MEDS: METHIMAZOLE 10 MG TABLET (FP) PO SCH ×3 (00:16→21:34)
[2017-12-19] MEDS: GABAPENTIN 100 MG CAPSULE (FP) PO SCH ×3 (00:16→21:34)
[2017-12-19 02:29] VITALS: BMI 17.5
[2017-12-19] MEDS: NAPH,MB-DB/K PH,MBDB POWDER PACKET PO SCH ×3 (07:06→21:35)
[2017-12-19] MEDS ORDERED: PT OWN MED DRAWER 7, Y5N ONE ×3 (07:14→18:17)
[2017-12-19 07:34] LABS: BASO % 0.4 % (0-2.0); EOS % 0.6 % (0-4.5); HEMATOCRIT 28.4 % (32.4-45.2); HEMOGLOBIN 9.1 GM/dL (10.7-15.3); MCH 29.9 pg (25.7-33.7); MCHC 32.2 g/dl (32.0-36.0); MEAN CELL VOLUME 92.9 fl (80-96); MEAN PLT VOLUME 6.2 fl (7.5-11.1); PLATELET COUNT 380 K/MM3 (134-434); RBC 3.06 M/mm3 (3.60-5.2); RDW 22.2 % (11.6-15.6); WHITE BLOOD COUNT 6.5 K/mm3 (4.0-10.0)
[2017-12-19 08:26] LABS: ANION GAP 10 MMOL/L (8-16); BLOOD UREA NITROGEN 9 mg/dL (7-18); CHLORIDE 105 mmol/L (98-107); CO2 24 mmol/L (21-32); CREATININE 0.5 mg/dL (0.55-1.3); GLUCOSE,RANDOM 68 mg/dL (74-106); MAGNESIUM 1.4 mg/dL (1.8-2.4); PHOSPHOROUS 2.3 mg/dL (2.5-4.9); POTASSIUM 3.8 mmol/L (3.5-5.1); SODIUM 139 mmol/L (136-145)
[2017-12-19] MEDS: AMINO ACIDS/PROTEIN HYDROLYS 30 ML LIQUID.PKT PO SCH ×3 (08:52→18:05)
[2017-12-19] MEDS ORDERED: PATIENT'S OWN MEDICATION (NON-FORMULARY) (Carbidopa/Levodopa [Rytary Er 36.25 Mg-145 Mg Ca PO SCH (10:00)
[2017-12-19] MEDS ORDERED: CHOLESTYRAMINE/ASPARTAME 4 GM PACKET PO SCH (10:00)
[2017-12-19] MEDS ORDERED: CEFTRIAXONE 1 GM in DEXTROSE 5%-WATER 100 ML IVPB SCH (10:00)
[2017-12-19] MEDS ORDERED: CLOPIDOGREL BISULFATE 75 MG TABLET (FP) PO SCH (10:00)
[2017-12-19] MEDS ORDERED: MAGNESIUM SULF 50% (8.12 MEQ/2 ML-1 GM VIAL) IVPB ONE ×2 (10:30→12:50)
[2017-12-19] MEDS: DIGOXIN 0.125 MG TABLET (FP) PO SCH (10:32)
[2017-12-19] MEDS: LACTOBACILLUS ACIDOPHILUS 1 TABLET PO SCH (10:33)
[2017-12-19] MEDS: MULTIVITAMINS THER W-MINERALS COMBO TABLET (FP) PO SCH (10:33)
[2017-12-19] MEDS: POTASSIUM CHLORIDE TABS 20 MEQ TABLET.ER (FP) PO SCH (10:33)
[2017-12-19] MEDS: MAGNESIUM CL 64 MG TABLET.SA PO SCH (10:35)
[2017-12-19] MEDS: AMANTADINE HCL 100 MG TABLET PO SCH (10:35)
--- NOTE | 2017-12-19 11:16 | PN ---
Progress Note, Physician Chief Complaint: Pt lying in bed in no acute distress. reports she had blood in stool for last 2.5 days, reports loose BMs as well which is chronic. reports new burning/ slight discomfort when urinating per pt. Denies any chest pain, sob, n/v - Current Medication List Current Medications: Active Medications Acetaminophen (Tylenol -) 650 mg PO Q6H PRN PRN Reason: FEVER Acetaminophen/Codeine Phosphate (Tylenol # 3 -) 1 tab PO Q8H PRN PRN Reason: PAIN LEVEL 7 - 10 Amantadine HCl (Symmetrel -) 100 mg PO DAILY [facility] Last Admin: 12/19/17 10:35 Dose: 100 mg Amino Acids (Prosource No Carb Liquid Pkt) 30 ml PO BID@0800,1730 [facility] Last Admin: 12/19/17 08:52 Dose: 30 ml Carbidopa/Levodopa (Sinemet 25/100 -) 1 each PO TID [facility] Cholestyramine Resin (Questran Light Packet -) 4 gm PO BID [facility] Last Admin: 12/19/17 10:33 Dose: 4 gm Digoxin (Lanoxin -) 0.125 mg PO DAILY [facility] Last Admin: 12/19/17 10:32 Dose: 0.125 mg Diltiazem HCl (Cardizem Cd -) 180 mg PO DAILY [facility] Gabapentin (Neurontin -) 100 mg PO BID [facility] Last Admin: 12/19/17 10:33 Dose: 100 mg Sodium Chloride (Normal Saline -) 1,000 mls @ 50 mls/hr IV ASDIR [facility] Stop: 12/19/17 22:48 Last Admin: 12/19/17 00:07 Dose: 50 mls/hr Levofloxacin (Levaquin 500 Mg Premixed Ivpb -) 500 mg in 100 mls @ 100 mls/hr IVPB ONCE ONE; Protocol Stop: 12/19/17 12:13 Lactobacillus Acidophilus (Bacid -) 1 tab PO DAILY [facility] Last Admin: 12/19/17 10:33 Dose: 1 tab Magnesium Chloride (Slow-Mag -) 128 mg PO DAILY [facility] Last Admin: 12/19/17 10:35 Dose: 128 mg Methimazole (Tapazole -) 20 mg PO BID [facility] Last Admin: 12/19/17 10:34 Dose: 20 mg Multivitamins/Minerals (Theragran-M) 1 each PO DAILY [facility] Last Admin: 12/19/17 10:33 Dose: 1 each Potassium Chloride (K-Dur -) 20 meq PO DAILY [facility] Last Admin: 12/19/17 10:33 Dose: 20 meq Potassium Phos/Sodium Phos (Phos-Nak Packet -) 1 packet PO TID [facility] Last Admin: 12/19/17 07:06 Dose: 1 packet Propranolol HCl (Inderal -) 60 mg PO TID [facility] Last Admin: 12/19/17 07:06 Dose: 60 mg - Objective Vital Signs: Vital Signs Temperature 97.8 F 12/19/17 09:00 Pulse Rate 65 12/19/17 10:32 Respiratory Rate 20 12/19/17 09:00 Blood Pressure 93/44 L 12/19/17 09:00 O2 Sat by Pulse Oximetry (%) 97 12/19/17 02:41 Constitutional: Yes: No Distress, Calm Cardiovascular: Yes: Pulse Irregular Respiratory: Yes: WNL, Regular, CTA Bilaterally. No: Accessory Muscle Use, SOB , Tachypnea, Wheezes Gastrointestinal: Yes: Normal Bowel Sounds, Soft. No: Distention, Tenderness Genitourinary: Yes: Incontinence Edema: No Neurological: Yes: WNL, Alert, Oriented, Confusion (intermittent) Psychiatric: Yes: WNL, Alert, Oriented Labs: CBC, BMP 12/19/17 06:30 12/19/17 06:30 INR, PTT INR 1.12 (0.83-1.09) H 12/18/17 08:00 Assessment/Plan (1) Colitis Assessment/Plan: CT consistent with acute colitis 5-6 episodes/day of diarrhea mixed with blood hx of cdiff colitis,snf cdiff antigen +, toxin negative cdiff PCR toxin ordered/ stool culture pending po vanco day 1 clear liquids GI/ID following Code(s): K52.9 - NONINFECTIVE GASTROENTERITIS AND COLITIS, UNSPECIFIED (2) BRBPR (bright red blood per rectum) Assessment/Plan: 2/2 colitis hg/hct at baseline consider egd/colonoscopy outpt once colitis resolves GI following Code(s): K62.5 - HEMORRHAGE OF ANUS AND RECTUM (3) UTI (urinary tract infection) Assessment/Plan: symptomatic, pt reports mild discomfort/burning with urination UA+, UC pending antibx per ID Code(s): N39.0 - URINARY TRACT INFECTION, SITE NOT SPECIFIED Qualifiers: Urinary tract infection type: acute cystitis Hematuria presence: with hematuria Qualified Code(s): N30.01 - Acute cystitis with hematuria (4) Atrial fibrillation Assessment/Plan: rate controlled continue home meds AC contraindicated 2/2 risk for falls Code(s): I48.91 - UNSPECIFIED ATRIAL FIBRILLATION (3) Chronic diarrhea Assessment/Plan: acute on chronic as above Code(s): K52.9 - NONINFECTIVE GASTROENTERITIS AND COLITIS, UNSPECIFIED (4) Occult blood in stools Assessment/Plan: 2/2 colitis as above Code(s): R19.5 - OTHER FECAL ABNORMALITIES (5) Parkinson disease Assessment/Plan: chronic dystonia, bradykinisia with intermittent confusion home med: rytary 36.25/145 2 caps bid neurology consult appreciated Code(s): G20 - PARKINSON'S DISEASE (6) Peripheral vascular disease Assessment/Plan: s/p angiogram, stent lle , 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 continue plavix Code(s): I73.9 - PERIPHERAL VASCULAR DISEASE, UNSPECIFIED (7) Severe malnutrition Assessment/Plan: ensure encourage po intake ensure supplements, prosource Code(s): E43 - UNSPECIFIED SEVERE PROTEIN-CALORIE MALNUTRITION (8) Dystonia Assessment/Plan: secondary to PD chronic Code(s): G24.9 - DYSTONIA, UNSPECIFIED (9) Hypophonia Assessment/Plan: secondary to PD chronic Code(s): R49.8 - OTHER VOICE AND RESONANCE DISORDERS (10) Hyperthyroidism Assessment/Plan: stable continue tapazole 20 tid outpt endocrine f/u Code(s): E05.90 - THYROTOXICOSIS, UNSP WITHOUT THYROTOXIC CRISIS OR STORM (11) HTN (hypertension) Assessment/Plan: controlled,hypotensive, asymptomatic cardiology following Code(s): I10 - ESSENTIAL (PRIMARY) HYPERTENSION Qualifiers: Hypertension type: essential hypertension Qualified Code(s): I10 - Essential (primary) hypertension (12) AAA (abdominal aortic aneurysm) Assessment/Plan: 4.8cm, chronic recommend close f/u with cardiology outpt monitor Code(s): I71.4 - ABDOMINAL AORTIC ANEURYSM, WITHOUT RUPTURE Qualifiers: Presence of rupture: without rupture Qualified Code(s): I71.4 - Abdominal aortic aneurysm, without rupture (13) Hypokalemia Assessment/Plan: mild kcl po daily replete prn Code(s): E87.6 - HYPOKALEMIA (14) Hypomagnesemia Assessment/Plan: mg 1.4 mg iv 2g x 2 runs continue po mg Code(s): E83.42 - HYPOMAGNESEMIA (15) Hypotension Assessment/Plan: asymptomatic tends to run low at baseline IVF cardiology following
--- NOTE | 2017-12-19 11:27 | EKG ---
Test Reason : Blood Pressure : / mmHG Vent. Rate : 067 BPM Atrial Rate : 375 BPM P-R Int : 000 ms QRS Dur : 076 ms QT Int : 374 ms P-R-T Axes : 000 030 016 degrees QTc Int : 395 ms ATRIAL FIBRILLATION NONSPECIFIC T WAVE ABNORMALITY ABNORMAL ECG WHEN COMPARED WITH ECG OF 25-NOV-2017 20:25, VENT. RATE HAS DECREASED BY 64 BPM Confirmed by BROOKLYN BHARDWAJ MD ([id number]) on 12/19/2017 11:27:18 AM Referred By: Confirmed By:BROOKLYN BHARDWAJ MD
--- NOTE | 2017-12-19 11:46 | CON.GI ---
Consult Consult Specialty:: GI Referred by:: [facility] Reason for Consultation:: Diarrhea, rectal bleeding - History of Present Illness Chief Complaint: Diarrhea, rectal bleeding History of Present Illness: 72F admitted from home for evaluation of rectal bleeding and diarrhea. She was evaluated by litigation assistant Dr. dayan Herrera on two recent admissions. In he evaluated her for loose bowel movements. Apprently she had a C.Diff stool antigen study that was positive 10/19 and repeat 10/[address] scan 10/19 revealed normal stool burden, no evidence of colitis, dilated distal small bowel loop and normal appearing TI. 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 He reeveluated her 11/27/17 for loose bowel movements and felt she was not a candidate for endoscopic evaluation given her cardiac issues at the time. Currently she describes loose BM's for 2 weeks (4-5 times per day) along with rectal bleeding for 2-3 days. She denies nausea vomiting. She does describe associated abdominal pain. CT scan revealed thickening of the transverse colon down to the rectosigmoid c/w colitis. She has never had an EGD or colonoscopy. She does not know her family history as she is adopted. - Past Medical History [employer]: Yes: Other (Dystonia) Cardio/Vascular: Yes: AFIB, HTN Gastrointestinal: Yes: Other (sbo, AAA, cdiff colitis) Psych: Yes: Anxiety Endocrine: Yes: Hyperthyroidism Additional Medical History: ? ice cream man malignancy per patient - Past Surgical History Past Surgical History: Yes: None, Amputation (left 2nd, 3rd phalanges), Stent ( lle) Additional Surgical History: breast reduction, ? 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 [employer] of : [employer] History of Recent Travel: No Home Medications - Allergies Allergies/Adverse Reactions: Allergies Allergy/AdvReac Type Severity Reaction Status Date / Time aspirin Allergy Verified 12/18/17 17:05 Penicillins Allergy Verified 12/18/17 17:05 - Home Medications Home Medications: Ambulatory Orders Acetaminophen 650 mg PO QID 11/25/17 Acetaminophen W/ Codeine #3 [Tylenol # 3 -] 1 tab PO TID 11/25/17 Amantadine HCl [Amantadine] 100 mg PO DAILY 11/25/17 Carbidopa/Levodopa [Rytary ER 36.25 mg-145 mg Cap] 1 each PO BID 11/25/17 Cholestyramine/Aspartame [Questran Light Packet -] 4 gm PO BID 11/25/17 Clopidogrel Bisulfate [Plavix] 75 mg PO DAILY 11/25/17 Diltiazem Cd [Cardizem Cd -] 180 mg PO DAILY 11/25/17 Lactobacillus Acidophilus [Acidophilus] 1 each PO DAILY 11/25/17 Multivit-Min/Iron Fum/Folic AC [Mkslb-Ivnssau-Jtrrumpx Tablet] 1 each PO DAILY 11/25/17 Potassium Chloride [K-Dur -] 20 meq PO DAILY 11/25/17 Propranolol HCl 60 mg PO TID 11/25/17 Sodium,Potassium Phosphates [Phos-Nak Packet] 1 each PO TID 11/25/17 Amino Acids/Protein Hydrolys [Prosource No Carb Liquid Pkt] 30 ml PO BID@0800, 1730 packet 12/01/17 Loperamide HCl [Imodium -] 2 mg PO Q8H PRN capsule 12/01/17 Magnesium Chloride [Slow-Mag -] 128 mg PO DAILY tablet.sa 12/01/17 Methimazole [Tapazole -] 20 mg PO Q12H tablet 12/01/17 Digoxin [Lanoxin -] 0.125 mg PO DAILY 12/18/17 Gabapentin [Neurontin -] 100 mg PO Q12H 12/18/17 Family Disease History - Family Disease History Other Family History: patient adopted. No children Review of Systems - Review of Systems Constitutional: denies: Chills Cardiovascular: denies: Chest Pain Respiratory: denies: Cough Gastrointestinal: reports: Abdominal Pain, Diarrhea. denies: Constipation, Rectal Bleeding Musculoskeletal: denies: Back Pain Physical Exam-GI Vital Signs: Vital Signs Temperature 97.8 F 12/19/17 09:00 Pulse Rate 65 12/19/17 10:32 Respiratory Rate 20 12/19/17 09:00 Blood Pressure 93/44 L 12/19/17 09:00 O2 Sat by Pulse Oximetry (%) 97 12/19/17 02:41 Constitutional: Yes: Calm Eyes: No: Sclera Icterus Cardiovascular: Yes: Pulse Irregular (regular rate) Respiratory: Yes: Diminished (at bases with poor insp effort) Gastrointestinal Inspection: No: Distention ...Auscultate: Yes: Normoactive Bowel Sounds ...Palpate: Yes: Guarding, Tenderness (TTP diffusely, Right>Left) ...Rectal Exam: Yes: Other (No external lesions, no masses, no gross blood, liquid light brown stool, guaiac positive) Edema: No (No LE edema) Neurological: Yes: Alert Labs: CBC, BMP 12/19/17 06:30 12/19/17 06:30 INR, PTT INR 1.12 (0.83-1.09) H 12/18/17 08:00 Hepatic Panel Total Bilirubin 0.2 mg/dL (0.2-1) 12/18/17 08:00 AST 8 U/L (15-37) L 12/18/17 08:00 ALT 9 U/L (13-61) L 12/18/17 08:00 Alkaline Phosphatase 84 U/L (45-117) 12/18/17 08:00 Albumin 1.8 g/dl (3.4-5.0) L 12/18/17 08:00 Imaging - Results Cat Scan: Report Reviewed, Image Reviewed Problem List - Problems (1) Colitis Assessment/Plan: Suspect infectious etiology. Given multiple hospital admissions, prior c. diff antigen positivity, retirement residence, C. Diff colitis will need to be excluded. Given the chronicity of her complaints along with extent of colitis noted on CT scan, doubt ischemic in etiology. Advise: Empiric PO vanco 125mg PO Q6Hrs ID evaluation Avoidance of PPI I stopped the BID cholestyramine Clear liquid diet If C. Diff studies unremarkable with persistence of symptoms and no response to PO vanco, I discussed the possibility of colonoscopy / flex sig with Ms. Wilson to exclude alternate pathology. She said No. I asked if she wanted me to discuss things with her and she the stated "No, you can speak to me". Supportive measures Dr. Torres will be covering after 5pm tonight and through the weekend Code(s): K52.9 - NONINFECTIVE GASTROENTERITIS AND COLITIS, UNSPECIFIED
--- NOTE | 2017-12-19 12:26 | CONSULT ---
Consult - text type - Consultation Consultation Note: Neurology CHIEF COMPLAINT: Parkinson's Disease HISTORY OF PRESENT ILLNESS: 72 year old female with a past medical history significant for colitis with C diff presented to the ED with diarrhea. Per notes, the reported stool has been bloody since discharge from the hospital 2 weeks ago. WBC 9.8, Stool Occ +, H/H was 10.4/32.1. was consulted by nurse practitioner to evaluate Parkinson's disease. In the past patient seen as an outpatient by Dr. Medina but is not maintained follow-up. During my evaluation, she does not demonstrate significant cogwheel rigidity and I did not appreciate a tremor. Although she does have bradykinesia and does meet the diagnosis for Parkinson's disease it seems to me that this is stable. I would advise to continue her home medication at its current doses. 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[place], hyperthyroid, anxiety, C diff colitis 10/2017 PAST SURGICAL HISTORY: R popliteal stent L toe amputations Social History: Smoking: quit august 2016, previous heavy smoker x 50y Alcohol: pt denies Drugs: pt denies Family History: unk Allergies aspirin Allergy (Verified 12/18/17 17:05) Penicillins Allergy (Verified 12/18/17 17:05) HOME MEDICATIONS: 3 Medication Instructions Recorded Acetaminophen 650 mg PO QID 11/25/17 Acetaminophen W/ Codeine #3 1 tab PO TID 11/25/17 [Tylenol # 3 -] Amantadine HCl [Amantadine] 100 mg PO DAILY 11/25/17 Carbidopa/Levodopa [Rytary ER 1 each PO BID 11/25/17 36.25 mg-145 mg Cap] Cholestyramine/Aspartame [Questran 4 gm PO BID 11/25/17 Light Packet -] Clopidogrel Bisulfate [Plavix] 75 mg PO DAILY 11/25/17 Diltiazem Cd [Cardizem Cd -] 180 mg PO DAILY 11/25/17 Lactobacillus Acidophilus 1 each PO DAILY 11/25/17 [Acidophilus] Multivit-Min/Iron Fum/Folic AC 1 each PO DAILY 11/25/17 [Tgksz-Ahrdmug-Kaelmazu Tablet] Potassium Chloride [K-Dur -] 20 meq PO DAILY 11/25/17 Propranolol HCl 60 mg PO TID 11/25/17 Sodium,Potassium Phosphates 1 each PO TID 11/25/17 [Phos-Nak Packet] Amino Acids/Protein Hydrolys 30 ml PO BID@0800,1730 packet 12/01/17 [Prosource No Carb Liquid Pkt] Loperamide HCl [Imodium -] 2 mg PO Q8H PRN capsule 12/01/17 Magnesium Chloride [Slow-Mag -] 128 mg PO DAILY tablet.sa 12/01/17 Methimazole [Tapazole -] 20 mg PO Q12H tablet 12/01/17 REVIEW OF SYSTEMS CONSTITUTIONAL: Absent: fever, chills, diaphoresis, generalized weakness, malaise, loss of appetite, weight change HEENT: Absent: rhinorrhea, nasal congestion, throat pain, throat swelling, difficulty swallowing, mouth swelling, ear pain, eye pain, visual changes CARDIOVASCULAR: Absent: chest pain, syncope, palpitations, irregular heart rate, lightheadedness , peripheral edema RESPIRATORY: Absent: cough, shortness of breath, dyspnea with exertion, orthopnea, wheezing, stridor, hemoptysis GASTROINTESTINAL: Present: diarrhea, hematochezia Absent: abdominal pain, abdominal distension, nausea, vomiting, constipation, melena GENITOURINARY: Absent: dysuria, frequency, urgency, hesitancy, hematuria, flank pain, genital pain MUSCULOSKELETAL: Absent: myalgia, arthralgia, joint swelling, back pain, neck pain SKIN: Absent: rash, itching, pallor HEMATOLOGIC/IMMUNOLOGIC: Absent: easy bleeding, easy bruising, lymphadenopathy, frequent infections ENDOCRINE: Absent: unexplained weight gain, unexplained weight loss, heat intolerance, cold intolerance NEUROLOGIC: Absent: headache, focal weakness or paresthesias, dizziness, unsteady gait, seizure, mental status changes, bladder or bowel incontinence PSYCHIATRIC: Absent: anxiety, depression, suicidal or homicidal ideation, hallucinations. Vital Signs Period Temp Pulse Resp BP Sys/Watkins Pulse Ox Last 24 Hr 97.5 F-98.7 F 65-92 14-20 93-114/43-68 96-100 GENERAL: Awake, alert, and oriented to person, place and year; in no acute distress. HEAD: Normal with no signs of trauma. temporal wasting noted EYES: Pupils equal, round and reactive to light, extraocular movements intact, sclera anicteric, conjunctiva clear. No lid lag. EARS, NOSE, THROAT: Ears normal, nares patent, oropharynx clear without exudates. Moist mucous membranes. NECK: Normal range of motion, supple without lymphadenopathy, JVD, or masses. LUNGS: Breath sounds equal, clear to auscultation bilaterally. No wheezes, and no crackles. No accessory muscle use. HEART: Regular rate and rhythm, normal S1 and S2 without murmur, rub or gallop. ABDOMEN: Soft, nontender, not distended, normoactive bowel sounds, no guarding, no rebound, no masses. No hepatomegaly or splenomegaly. MUSCULOSKELETAL: Normal range of motion at all joints. No bony deformities or tenderness. No CVA tenderness. + cachexic UPPER EXTREMITIES: 2+ pulses, warm, well-perfused. No cyanosis. No clubbing. No peripheral edema. LOWER EXTREMITIES: 2+ pulses, warm, well-perfused. No calf tenderness. No peripheral edema. left toe amputations, 2nd and 3rd NEUROLOGICAL: Cranial nerves II-XII intact. bradykinesia noted, minimal cogwheeling in upper extremities, no tremor noted, gait deferred PSYCHIATRIC: Cooperative. Good eye contact. Appropriate mood and affect. SKIN: Warm, dry, normal turgor, no rashes or lesions noted, normal capillary refill. Laboratory Results - last 24 hr 3 12/18/17 12/18/17 12/18/17 12/18/17 08:00 08:00 08:00 17:29 WBC 9.8 RBC 3.47 L Hgb 10.4 L Hct 32.1 L D MCV 92.5 D MCH 30.0 MCHC 32.4 RDW 22.9 H Plt Count 465 H MPV 6.8 L Absolute Neuts (auto) 6.9 Neutrophils % 70.7 Lymphocytes % 24.2 D Monocytes % 4.0 Eosinophils % 0.8 D Basophils % 0.3 Nucleated RBC % 0 Platelet Estimate Slt increase Platelet Comment Polychromasia 1+ Poikilocytosis 1+ Anisocytosis 3+ Macrocytosis 1+ Ovalocytes 1+ PT with INR 12.60 INR 1.12 H Sodium 138 Potassium 4.1 Chloride 103 Carbon Dioxide 23 Anion Gap 12 BUN 17 Creatinine 0.7 Creat Clearance w eGFR > 60 Random Glucose 81 Calcium 8.6 Total Bilirubin 0.2 AST 8 L ALT 9 L Alkaline Phosphatase 84 Total Protein 6.8 Albumin 1.8 L Urine Color Urine Appearance Urine pH Ur Specific [place] Urine Protein Urine Glucose (UA) Urine Ketones Urine Blood Urine Nitrite Urine Bilirubin Urine Urobilinogen Ur Leukocyte Esterase Urine WBC (Auto) Urine RBC (Auto) Ur Epithelial Cells Urine Bacteria Hyaline Casts Urine Mucus Stool Occult Blood Positive Blood Type A POSITIVE Antibody Screen Negative 3 Urine Color Yellow 12/18/17 18:34 Urine Appearance Cloudy 12/18/17 18:34 Urine pH 5.0 (5.0-8.0) D 12/18/17 18:34 Ur Specific [place] 1.023 (1.001-1.035) 12/18/17 18:34 Urine Protein 1+ (NEGATIVE) H 12/18/17 18:34 Urine Glucose (UA) Negative (NEGATIVE) 12/18/17 18:34 Urine Ketones Negative (NEGATIVE) 12/18/17 18:34 Urine Blood 1+ (NEGATIVE) H 12/18/17 18:34 Urine Nitrite Positive (NEGATIVE) 12/18/17 18:34 Urine Bilirubin Negative (<2.0 mg/dL) 12/18/17 18:34 Ur Leukocyte Esterase 3+ (NEGATIVE) H 12/18/17 18:34 Urine WBC (Auto) 230 12/18/17 18:34 Urine RBC (Auto) 8 12/18/17 18:34 Ur Epithelial Cells Rare /HPF (FEW) 12/18/17 18:34 Urine Bacteria Many /hpf (NONE SEEN) 12/18/17 18:34 Urine Mucus Rare 12/18/17 18:34 ECG Atrial fibrillation vent rate 67, QTC 395 nonspecific T wave abnormality Radiology Reports ABd/Pelvis CT with contrast reviewed, consistent with colitis ASSESSMENT/PLAN: 72 year old female with a past medical history significant for colitis with C diff presented to the ED with diarrhea. Per notes, the reported stool has been bloody since discharge from the hospital 2 weeks ago. WBC 9.8, Stool Occ +, H/H was 10.4/32.1. was consulted by nurse practitioner to evaluate Parkinson's disease. In the past patient seen as an outpatient by Dr. Medina but is not maintained follow-up. During my evaluation, she does not demonstrate significant cogwheel rigidity and I did not appreciate a tremor. Although she does have bradykinesia and does meet the diagnosis for Parkinson's disease it seems to me that this is stable. I would advise to continue her home medication at its current doses. Diarrhea more likely to be due to colitis then from Parkinson's disease although this is possible. Parkinson's has higher incidence of constipation rather than diarrhea, but irritable bowel syndrome can accompany Parkinson's disease. Follow-up recommendations from GI and continue supportive care. Monitor for ablation, monitor blood pressure, maintain normotensive range. No further imaging or neurologic workup indicated at this time.
--- NOTE | 2017-12-19 12:52 | CON.CARD ---
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 recently admitted earlier this month with afib with RVR, improved control on propranolol and diltaizem, digoxin. Now has diarrhea, blood in stool. no chest pain, palps , dizzy, lightheadedness, edema, dyspnea. 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) Cardio/Vascular: Yes: AFIB, HTN Gastrointestinal: Yes: Other (sbo, AAA, cdiff colitis) Psych: Yes: Anxiety Endocrine: Yes: Hyperthyroidism - Past Surgical History Past Surgical History: Yes: None, Amputation (left 2nd, 3rd phalanges), Stent ( lle) - Alcohol/Substance Use Hx Alcohol Use: No History of Substance Use: reports: None - Smoking History Smoking history: Unknown if ever smoked Have you smoked in the past 12 months: Yes Aproximately how many cigarettes per day: 5 If you are a former smoker, when did you quit?: august 2016 - Social History ADL: Support Services 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 [employer] History of Recent Travel: No Home Medications - Allergies Allergies/Adverse Reactions: Allergies Allergy/AdvReac Type Severity Reaction Status Date / Time aspirin Allergy Verified 11/25/17 15:18 Penicillins Allergy Verified 11/25/17 15:18 - Home Medications Home Medications Medication Instructions Recorded Acetaminophen 650 mg PO QID 11/25/17 Acetaminophen W/ Codeine #3 1 tab PO TID 11/25/17 [Tylenol # 3 -] Amantadine HCl [Amantadine] 100 mg PO DAILY 11/25/17 Carbidopa/Levodopa [Rytary ER 1 each PO BID 11/25/17 36.25 mg-145 mg Cap] Cholestyramine/Aspartame [Questran 4 gm PO BID 11/25/17 Light Packet -] Clopidogrel Bisulfate [Plavix] 75 mg PO DAILY 11/25/17 Diltiazem Cd [Cardizem Cd -] 180 mg PO DAILY 11/25/17 Lactobacillus Acidophilus 1 each PO DAILY 11/25/17 [Acidophilus] Multivit-Min/Iron Fum/Folic AC 1 each PO DAILY 11/25/17 [Areup-Drpmryp-Brlqyagn Tablet] Potassium Chloride [K-Dur -] 20 meq PO DAILY 11/25/17 Propranolol HCl 60 mg PO TID 11/25/17 Sodium,Potassium Phosphates 1 each PO TID 11/25/17 [Phos-Nak Packet] Amino Acids/Protein Hydrolys 30 ml PO BID@0800,1730 packet 12/01/17 [Prosource No Carb Liquid Pkt] Loperamide HCl [Imodium -] 2 mg PO Q8H PRN capsule 12/01/17 Magnesium Chloride [Slow-Mag -] 128 mg PO DAILY tablet.sa 12/01/17 Methimazole [Tapazole -] 20 mg PO Q12H tablet 12/01/17 Digoxin [Lanoxin -] 0.125 mg PO DAILY 12/18/17 Gabapentin [Neurontin -] 100 mg PO Q12H 12/18/17 Family Disease History - Family Disease History Family History: Unremarkable Review of Systems - Review of Systems Constitutional: reports: Weakness Eyes: reports: No Symptoms HENT: reports: No Symptoms Neck: reports: No Symptoms Cardiovascular: reports: Palpitations, Shortness of Breath Respiratory: reports: No Symptoms Gastrointestinal: reports: No Symptoms Genitourinary: reports: No Symptoms Musculoskeletal: reports: No Symptoms Integumentary: reports: No Symptoms Neurological: reports: No Symptoms Endocrine: reports: No Symptoms Hematology/Lymphatic: reports: No Symptoms Psychiatric: reports: No Symptoms Vital Signs: Vital Signs Period Temp Pulse Resp BP Sys/Watkins Pulse Ox Last 24 Hr 97.5 F-98.7 F 65-92 14-20 93-114/43-68 96-100 Constitutional: Yes: Well Nourished, No Distress, Calm Eyes: Yes: Conjunctiva Clear, EOM Intact HENT: Yes: Atraumatic, Normocephalic Neck: Yes: Supple, Trachea Midline Respiratory: Yes: Regular, CTA Bilaterally Gastrointestinal: Yes: Normal Bowel Sounds, Soft Cardiovascular: Yes: Pulse Irregular JVD: No Heart Sounds: Yes: S1, S2 Musculoskeletal: Yes: WNL Extremities: Yes: WNL Edema: No Peripheral Pulses: 2+ Left Doralis Pedis, 2+ Right Dorsalis Pedis Integumentary: Yes: WNL Neurological: Yes: Alert, Oriented ...Motor Strength: WNL Psychiatric: Yes: Alert, Oriented - Other Data Labs, Other Data: Laboratory Results - last 24 hr 12/18/17 12/18/17 12/18/17 08:00 08:00 08:00 WBC 9.8 RBC 3.47 L Hgb 10.4 L Hct 32.1 L D MCV 92.5 D MCH 30.0 MCHC 32.4 RDW 22.9 H Plt Count 465 H MPV 6.8 L Absolute Neuts (auto) 6.9 Neutrophils % 70.7 Lymphocytes % 24.2 D Monocytes % 4.0 Eosinophils % 0.8 D Basophils % 0.3 Nucleated RBC % 0 Platelet Estimate Slt increase Platelet Comment Polychromasia 1+ Poikilocytosis 1+ Anisocytosis 3+ Macrocytosis 1+ Ovalocytes 1+ PT with INR 12.60 INR 1.12 H Sodium 138 Potassium 4.1 Chloride 103 Carbon Dioxide 23 Anion Gap 12 BUN 17 Creatinine 0.7 Creat Clearance w eGFR > 60 Random Glucose 81 Calcium 8.6 Phosphorus Magnesium Total Bilirubin 0.2 AST 8 L ALT 9 L Alkaline Phosphatase 84 Total Protein 6.8 Albumin 1.8 L Urine Color Urine Appearance Urine pH Ur Specific [place] Urine Protein Urine Glucose (UA) Urine Ketones Urine Blood Urine Nitrite Urine Bilirubin Urine Urobilinogen Ur Leukocyte Esterase Urine WBC (Auto) Urine RBC (Auto) Ur Epithelial Cells Urine Bacteria Hyaline Casts Urine Mucus Stool Occult Blood Blood Type Antibody Screen 12/18/17 12/18/17 12/18/17 08:00 17:29 18:34 WBC RBC Hgb Hct MCV MCH MCHC RDW Plt Count MPV Absolute Neuts (auto) Neutrophils % Lymphocytes % Monocytes % Eosinophils % Basophils % Nucleated RBC % Platelet Estimate Platelet Comment Polychromasia Poikilocytosis Anisocytosis Macrocytosis Ovalocytes PT with INR INR Sodium Potassium Chloride Carbon Dioxide Anion Gap BUN Creatinine Creat Clearance w eGFR Random Glucose Calcium Phosphorus Magnesium Total Bilirubin AST ALT Alkaline Phosphatase Total Protein Albumin Urine Color Yellow Urine Appearance Cloudy Urine pH 5.0 D Ur Specific [place] 1.023 Urine Protein 1+ H Urine Glucose (UA) Negative Urine Ketones Negative Urine Blood 1+ H Urine Nitrite Positive Urine Bilirubin Negative Urine Urobilinogen Negative Ur Leukocyte Esterase 3+ H Urine WBC (Auto) 230 Urine RBC (Auto) 8 Ur Epithelial Cells Rare Urine Bacteria Many Hyaline Casts 6 Urine Mucus Rare Stool Occult Blood Positive Blood Type A POSITIVE Antibody Screen Negative 12/19/17 12/19/17 06:30 06:30 WBC 6.5 RBC 3.06 L Hgb 9.1 L Hct 28.4 L MCV 92.9 MCH 29.9 MCHC 32.2 RDW 22.2 H Plt Count 380 MPV 6.2 L Absolute Neuts (auto) 4.3 Neutrophils % 67.0 Lymphocytes % 26.0 Monocytes % 6.0 Eosinophils % 0.6 Basophils % 0.4 Nucleated RBC % 0 Platelet Estimate Platelet Comment Polychromasia Poikilocytosis Anisocytosis Macrocytosis Ovalocytes PT with INR INR Sodium 139 Potassium 3.8 Chloride 105 Carbon Dioxide 24 Anion Gap 10 BUN 9 Creatinine 0.5 L Creat Clearance w eGFR > 60 Random Glucose 68 L Calcium 8.0 L Phosphorus 2.3 L Magnesium 1.4 L Total Bilirubin AST ALT Alkaline Phosphatase Total Protein Albumin Urine Color Urine Appearance Urine pH Ur Specific [place] Urine Protein Urine Glucose (UA) Urine Ketones Urine Blood Urine Nitrite Urine Bilirubin Urine Urobilinogen Ur Leukocyte Esterase Urine WBC (Auto) Urine RBC (Auto) Ur Epithelial Cells Urine Bacteria Hyaline Casts Urine Mucus Stool Occult Blood Blood Type Antibody Screen Assessment/Plan 72F smoker with h/o of htn, frequent falls, parkinsons/dystonia, pvd 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 and chronic LLE wound, AAA (4.7 cm), 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 not on statin, will defer to outpatient md's. - smoking cessation
--- NOTE | 2017-12-19 13:23 | CON.ID ---
Consult Consult Specialty:: infectious diseases Referred by:: Mitzi Reason for Consultation:: dirrhoea,colitis - History of Present Illness Chief Complaint: abd pain ,dirrhoea History of Present Illness: The patient is a 72 year old female with a significant past medical history of Parkinsons disease, C Diff, A-fib admitted with diarrhea, rectal bleeding, and dysuria. Patient reports multiple episodes of watery loose stools for several weeks. as per the notes patient has been having blood in her diapers for couple of weeks Patient also reports a burning like sensation when urinating for the past several days. Denies fever or chills. Denies abdominal pain. Denies any other symptoms. 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 [employer] History of Recent Travel: No Home Medications - Allergies Allergies/Adverse Reactions: Allergies Allergy/AdvReac Type Severity Reaction Status Date / Time aspirin Allergy Verified 12/18/17 17:05 Penicillins Allergy Verified 12/18/17 17:05 - Home Medications Home Medications: Ambulatory Orders Acetaminophen 650 mg PO QID 11/25/17 Acetaminophen W/ Codeine #3 [Tylenol # 3 -] 1 tab PO TID 11/25/17 Amantadine HCl [Amantadine] 100 mg PO DAILY 11/25/17 Carbidopa/Levodopa [Rytary ER 36.25 mg-145 mg Cap] 1 each PO BID 11/25/17 Cholestyramine/Aspartame [Questran Light Packet -] 4 gm PO BID 11/25/17 Clopidogrel Bisulfate [Plavix] 75 mg PO DAILY 11/25/17 Diltiazem Cd [Cardizem Cd -] 180 mg PO DAILY 11/25/17 Lactobacillus Acidophilus [Acidophilus] 1 each PO DAILY 11/25/17 Multivit-Min/Iron Fum/Folic AC [Rishn-Mpqxqvr-Czvdhxhq Tablet] 1 each PO DAILY 11/25/17 Potassium Chloride [K-Dur -] 20 meq PO DAILY 11/25/17 Propranolol HCl 60 mg PO TID 11/25/17 Sodium,Potassium Phosphates [Phos-Nak Packet] 1 each PO TID 11/25/17 Amino Acids/Protein Hydrolys [Prosource No Carb Liquid Pkt] 30 ml PO BID@0800, 1730 packet 12/01/17 Loperamide HCl [Imodium -] 2 mg PO Q8H PRN capsule 12/01/17 Magnesium Chloride [Slow-Mag -] 128 mg PO DAILY tablet.sa 12/01/17 Methimazole [Tapazole -] 20 mg PO Q12H tablet 12/01/17 Digoxin [Lanoxin -] 0.125 mg PO DAILY 12/18/17 Gabapentin [Neurontin -] 100 mg PO Q12H 12/18/17 Family Disease History - Family Disease History Other Family History: patient adopted. No children Review of Systems - Review of Systems Constitutional: reports: No Symptoms Eyes: reports: No Symptoms HENT: reports: No Symptoms Neck: reports: No Symptoms Cardiovascular: reports: No Symptoms Respiratory: reports: No Symptoms Gastrointestinal: reports: Abdominal Pain, Diarrhea, Other (blood in stools) Genitourinary: reports: Burning Musculoskeletal: reports: No Symptoms Integumentary: reports: No Symptoms Neurological: reports: No Symptoms Endocrine: reports: No Symptoms Hematology/Lymphatic: reports: No Symptoms Psychiatric: reports: No Symptoms Physical Exam Vital Signs: Vital Signs Temperature 97.8 F 12/19/17 09:00 Pulse Rate 74 12/19/17 12:09 Respiratory Rate 20 12/19/17 09:00 Blood Pressure 101/63 12/19/17 12:09 O2 Sat by Pulse Oximetry (%) 97 12/19/17 02:41 Constitutional: Yes: Calm, Mild Distress Eyes: Yes: Conjunctiva Clear HENT: Yes: Atraumatic, Normocephalic Neck: Yes: Supple, Trachea Midline Cardiovascular: Yes: Pulse Irregular Respiratory: Yes: Regular, CTA Bilaterally Gastrointestinal: Yes: Soft, Tenderness (lower quadrants) Musculoskeletal: Yes: WNL Extremities: Yes: WNL Neurological: Yes: Alert, Oriented Psychiatric: Yes: Alert, Oriented Labs: CBC, BMP 12/19/17 06:30 12/19/17 06:30 Assessment/Plan Assessment/Plan (1) Colitis Code(s): K52.9 - NONINFECTIVE GASTROENTERITIS AND COLITIS, UNSPECIFIED (2) BRBPR (bright red blood per rectum) Code(s): K62.5 - HEMORRHAGE OF ANUS AND RECTUM (3) UTI (urinary tract infection) Code(s): N39.0 - URINARY TRACT INFECTION, SITE NOT SPECIFIED Qualifiers: Urinary tract infection type: acute cystitis Hematuria presence: with hematuria Qualified Code(s): N30.01 - Acute cystitis with hematuria (4) Atrial fibrillation Code(s): I48.91 - UNSPECIFIED ATRIAL FIBRILLATION (3) Chronic diarrhea Code(s): K52.9 - NONINFECTIVE GASTROENTERITIS AND COLITIS, UNSPECIFIED (4) Occult blood in stools Code(s): R19.5 - OTHER FECAL ABNORMALITIES (5) Parkinson disease Code(s): G20 - PARKINSON'S DISEASE (6) Peripheral vascular disease Code(s): I73.9 - PERIPHERAL VASCULAR DISEASE, UNSPECIFIED (7) Severe malnutrition Code(s): E43 - UNSPECIFIED SEVERE PROTEIN-CALORIE MALNUTRITION (8) Dystonia Code(s): G24.9 - DYSTONIA, UNSPECIFIED (9) Hypophonia Code(s): R49.8 - OTHER VOICE AND RESONANCE DISORDERS (10) Hyperthyroidism Code(s): E05.90 - THYROTOXICOSIS, UNSP WITHOUT THYROTOXIC CRISIS OR STORM (11) HTN (hypertension) Code(s): I10 - ESSENTIAL (PRIMARY) HYPERTENSION Qualifiers: Hypertension type: essential hypertension Qualified Code(s): I10 - Essential (primary) hypertension (12) AAA (abdominal aortic aneurysm) Code(s): I71.4 - ABDOMINAL AORTIC ANEURYSM, WITHOUT RUPTURE Qualifiers: Presence of rupture: without rupture Qualified Code(s): I71.4 - Abdominal aortic aneurysm, without rupture (13) Hypokalemia Code(s): E87.6 - HYPOKALEMIA (14) Hypomagnesemia Code(s): E83.42 - HYPOMAGNESEMIA (15)cdiff plan no abx at this time except continue oral vanco patient will need it retirement hydration gi on board rest as per the team
[2017-12-19] MEDS: CARBIDOPA/LEVODOPA 25/100 TABLET (FP) PO SCH ×2 (15:34→21:35)
[2017-12-20] MEDS: CARBIDOPA/LEVODOPA 25/100 TABLET (FP) PO SCH ×3 (06:56→21:32)
[2017-12-20] MEDS: NAPH,MB-DB/K PH,MBDB POWDER PACKET PO SCH ×3 (06:56→21:31)
[2017-12-20] MEDS: VANCOMYCIN 250 MG/5 ML ORAL SOLUTION PO SCH ×4 (06:57→23:16)
[2017-12-20] MEDS: AMINO ACIDS/PROTEIN HYDROLYS 30 ML LIQUID.PKT PO SCH ×2 (08:00→17:24)
--- NOTE | 2017-12-20 09:22 | PN ---
Progress Note, Physician Chief Complaint: C/O abd paain anfd pain Rt foot - Current Medication List Current Medications: Active Medications Acetaminophen (Tylenol -) 650 mg PO Q6H PRN PRN Reason: FEVER Acetaminophen/Codeine Phosphate (Tylenol # 3 -) 1 tab PO Q8H PRN PRN Reason: PAIN LEVEL 7 - 10 Amantadine HCl (Symmetrel -) 100 mg PO DAILY [facility] [place] Last Admin: 12/19/17 10:35 Dose: 100 mg Amino Acids (Prosource No Carb Liquid Pkt) 30 ml PO BID@0800,1730 [facility] [place] Last Admin: 12/19/17 18:05 Dose: Not Given Carbidopa/Levodopa (Sinemet 25/100 -) 1 each PO TID [facility] [place] Last Admin: 12/20/17 06:56 Dose: 1 each Digoxin (Lanoxin -) 0.125 mg PO DAILY [facility] [place] Last Admin: 12/19/17 10:32 Dose: 0.125 mg Diltiazem HCl (Cardizem Cd -) 180 mg PO DAILY [facility] [place] Last Admin: 12/19/17 11:23 Dose: Not Given Gabapentin (Neurontin -) 100 mg PO BID [facility] [place] Last Admin: 12/19/17 21:34 Dose: 100 mg Lactobacillus Acidophilus (Bacid -) 1 tab PO DAILY [facility] [place] Last Admin: 12/19/17 10:33 Dose: 1 tab Magnesium Chloride (Slow-Mag -) 128 mg PO DAILY [facility] [place] Last Admin: 12/19/17 10:35 Dose: 128 mg Methimazole (Tapazole -) 20 mg PO BID [facility] [place] Last Admin: 12/19/17 21:34 Dose: 20 mg Multivitamins/Minerals (Theragran-M) 1 each PO DAILY [facility] [place] Last Admin: 12/19/17 10:33 Dose: 1 each Potassium Chloride (K-Dur -) 20 meq PO DAILY [facility] [place] Last Admin: 12/19/17 10:33 Dose: 20 meq Potassium Phos/Sodium Phos (Phos-Nak Packet -) 1 packet PO TID [facility] [place] Last Admin: 12/20/17 06:56 Dose: Not Given Propranolol HCl (Inderal -) 60 mg PO TID [facility] [place] Last Admin: 12/20/17 06:55 Dose: Not Given Vancomycin HCl (Vancomycin Oral Solution) 125 mg PO Q6HPO [facility] [place] Last Admin: 12/20/17 06:57 Dose: 125 mg - Objective Vital Signs: Vital Signs Temperature 97.5 F L 12/20/17 06:00 Pulse Rate 85 12/20/17 06:00 Respiratory Rate 20 12/20/17 06:00 Blood Pressure 100/59 L 12/20/17 06:00 O2 Sat by Pulse Oximetry (%) 96 12/20/17 01:00 Constitutional: Yes: No Distress, Calm Cardiovascular: Yes: Pulse Irregular Respiratory: Yes: WNL, Regular, CTA Bilaterally. No: Accessory Muscle Use, SOB , Tachypnea, Wheezes Gastrointestinal: Yes: Normal Bowel Sounds, Soft. No: Distention, Tenderness Genitourinary: Yes: Incontinence Edema: No Neurological: Yes: WNL, Alert, Oriented, Confusion (intermittent) Psychiatric: Yes: WNL, Alert, Oriented Labs: CBC, BMP 12/19/17 06:30 12/19/17 06:30 INR, PTT INR 1.12 (0.83-1.09) H 12/18/17 08:00 Problem List - Problems (1) BRBPR (bright red blood per rectum) Assessment/Plan: Most likely Due t collitis on PO vancomycine Code(s): K62.5 - HEMORRHAGE OF ANUS AND RECTUM (2) C. difficile diarrhea Assessment/Plan: On PO Vancomycine no fever TWBC is normal Code(s): A04.72 - ENTEROCOLITIS D/T CLOSTRIDIUM DIFFICILE, NOT SPCF RECUR (3) Hyperthyroidism Assessment/Plan: On Methimazole Code(s): E05.90 - THYROTOXICOSIS, UNSP WITHOUT THYROTOXIC CRISIS OR STORM (4) Afib Assessment/Plan: Chronic not on Ac Code(s): I48.91 - UNSPECIFIED ATRIAL FIBRILLATION (5) Failure to thrive Assessment/Plan: Nutrition consult encourage Po intake Code(s): QMR9333 - (6) HTN (hypertension) Assessment/Plan: Well controlled cot current management. Code(s): I10 - ESSENTIAL (PRIMARY) HYPERTENSION (7) Parkinson disease Assessment/Plan: No active issue Code(s): G20 - PARKINSON'S DISEASE (8) Peripheral vascular disease Assessment/Plan: AAA cont current management Code(s): I73.9 - PERIPHERAL VASCULAR DISEASE, UNSPECIFIED
[2017-12-20] MEDS ORDERED: PT OWN MED DRAWER 7, Y5N ONE ×2 (09:54→21:20)
[2017-12-20] MEDS ORDERED: CEFTRIAXONE 1 GM in DEXTROSE 5%-WATER 100 ML IVPB SCH (10:00)
[2017-12-20] MEDS: DIGOXIN 0.125 MG TABLET (FP) PO SCH (10:07)
[2017-12-20] MEDS: LACTOBACILLUS ACIDOPHILUS 1 TABLET PO SCH (10:07)
[2017-12-20] MEDS: METHIMAZOLE 10 MG TABLET (FP) PO SCH ×2 (10:08→21:33)
[2017-12-20] MEDS: POTASSIUM CHLORIDE TABS 20 MEQ TABLET.ER (FP) PO SCH (10:08)
[2017-12-20] MEDS: GABAPENTIN 100 MG CAPSULE (FP) PO SCH ×2 (10:08→21:31)
[2017-12-20] MEDS: MULTIVITAMINS THER W-MINERALS COMBO TABLET (FP) PO SCH (10:08)
[2017-12-20] MEDS: MAGNESIUM CL 64 MG TABLET.SA PO SCH (10:09)
[2017-12-20] MEDS: AMANTADINE HCL 100 MG TABLET PO SCH (10:10)
--- NOTE | 2017-12-20 18:05 | PN ---
Progress Note, Physician History of Present Illness: Pt seen and examined. She has loose BMs but without severe abdominal pain. Remains afebrile. - Current Medication List Current Medications: Active Medications Acetaminophen (Tylenol -) 650 mg PO Q6H PRN PRN Reason: FEVER Acetaminophen/Codeine Phosphate (Tylenol # 3 -) 1 tab PO Q8H PRN PRN Reason: PAIN LEVEL 7 - 10 Last Admin: 12/20/17 10:14 Dose: 1 tab Amantadine HCl (Symmetrel -) 100 mg PO DAILY [facility] Last Admin: 12/20/17 10:10 Dose: 100 mg Amino Acids (Prosource No Carb Liquid Pkt) 30 ml PO BID@0800,1730 [facility] Last Admin: 12/20/17 17:24 Dose: 30 ml Carbidopa/Levodopa (Sinemet 25/100 -) 1 each PO TID [facility] Last Admin: 12/20/17 14:46 Dose: 1 each Digoxin (Lanoxin -) 0.125 mg PO DAILY [facility] Last Admin: 12/20/17 10:07 Dose: 0.125 mg Diltiazem HCl (Cardizem Cd -) 180 mg PO DAILY [facility] Last Admin: 12/20/17 10:08 Dose: Not Given Gabapentin (Neurontin -) 100 mg PO BID [facility] Last Admin: 12/20/17 10:08 Dose: 100 mg Lactobacillus Acidophilus (Bacid -) 1 tab PO DAILY [facility] Last Admin: 12/20/17 10:07 Dose: 1 tab Magnesium Chloride (Slow-Mag -) 128 mg PO DAILY [facility] Last Admin: 12/20/17 10:09 Dose: 128 mg Methimazole (Tapazole -) 20 mg PO BID [facility] Last Admin: 12/20/17 10:08 Dose: 20 mg Multivitamins/Minerals (Theragran-M) 1 each PO DAILY [facility] Last Admin: 12/20/17 10:08 Dose: 1 each Potassium Chloride (K-Dur -) 20 meq PO DAILY [facility] Last Admin: 12/20/17 10:08 Dose: 20 meq Potassium Phos/Sodium Phos (Phos-Nak Packet -) 1 packet PO TID [facility] Last Admin: 12/20/17 14:45 Dose: 1 packet Propranolol HCl (Inderal -) 60 mg PO TID [facility] Last Admin: 12/20/17 14:45 Dose: Not Given Vancomycin HCl (Vancomycin Oral Solution) 125 mg PO Q6HPO [facility] Last Admin: 12/20/17 17:22 Dose: 125 mg - Objective Vital Signs: Vital Signs Temperature 97.3 F L 12/20/17 14:05 Pulse Rate 94 H 12/20/17 14:05 Respiratory Rate 20 12/20/17 14:05 Blood Pressure 109/69 12/20/17 14:05 O2 Sat by Pulse Oximetry (%) 96 12/20/17 09:00 Constitutional: Yes: No Distress, Calm Cardiovascular: Yes: Pulse Irregular Respiratory: Yes: CTA Bilaterally Gastrointestinal: Yes: Normal Bowel Sounds, Soft Genitourinary: Yes: WNL Extremities: Yes: WNL Neurological: Yes: Alert Labs: CBC, BMP 12/19/17 06:30 12/19/17 06:30 INR, PTT INR 1.12 (0.83-1.09) H 12/18/17 08:00 - ....Imaging Cat Scan: Report Reviewed Problem List - Problems (1) Colitis Code(s): K52.9 - NONINFECTIVE GASTROENTERITIS AND COLITIS, UNSPECIFIED (2) AAA (abdominal aortic aneurysm) Code(s): I71.4 - ABDOMINAL AORTIC ANEURYSM, WITHOUT RUPTURE Qualifiers: Presence of rupture: without rupture Qualified Code(s): I71.4 - Abdominal aortic aneurysm, without rupture (3) C. difficile diarrhea Code(s): A04.72 - ENTEROCOLITIS D/T CLOSTRIDIUM DIFFICILE, NOT SPCF RECUR (4) HTN (hypertension) Code(s): I10 - ESSENTIAL (PRIMARY) HYPERTENSION (5) Hyperthyroidism Code(s): E05.90 - THYROTOXICOSIS, UNSP WITHOUT THYROTOXIC CRISIS OR STORM (6) Peripheral vascular disease Code(s): I73.9 - PERIPHERAL VASCULAR DISEASE, UNSPECIFIED (7) Afib Code(s): I48.91 - UNSPECIFIED ATRIAL FIBRILLATION Qualifiers: Atrial fibrillation type: chronic Qualified Code(s): I48.2 - Chronic atrial fibrillation Assessment/Plan -- continue Vancomycin p.o. -- pt currently afebrile, without leukocytosis -- GI f/u -- monitor vitals closely
[2017-12-21] MEDS: VANCOMYCIN 250 MG/5 ML ORAL SOLUTION PO SCH ×4 (06:19→23:47)
[2017-12-21] MEDS: NAPH,MB-DB/K PH,MBDB POWDER PACKET PO SCH ×3 (06:21→21:37)
[2017-12-21] MEDS: CARBIDOPA/LEVODOPA 25/100 TABLET (FP) PO SCH ×3 (06:21→21:38)
[2017-12-21 08:09] LABS: BASO % 0.5 % (0-2.0); EOS % 0.4 % (0-4.5); HEMATOCRIT 31.3 % (32.4-45.2); HEMOGLOBIN 10.1 GM/dL (10.7-15.3); LYMPH % 17.8 % (8-40); MCH 30.1 pg (25.7-33.7); MCHC 32.4 g/dl (32.0-36.0); MEAN CELL VOLUME 92.8 fl (80-96); MEAN PLT VOLUME 6.7 fl (7.5-11.1); MONO % 5.1 % (3.8-10.2); NEUT % 76.2 % (42.8-82.8); PLATELET COUNT 406 K/MM3 (134-434); RBC 3.37 M/mm3 (3.60-5.2); RDW 22.2 % (11.6-15.6); WHITE BLOOD COUNT 10.7 K/mm3 (4.0-10.0)
[2017-12-21 09:16] LABS: ANION GAP 9 MMOL/L (8-16); BLOOD UREA NITROGEN 4 mg/dL (7-18); CALCIUM 8.3 mg/dL (8.5-10.1); CHLORIDE 102 mmol/L (98-107); CO2 24 mmol/L (21-32); CREATININE 0.4 mg/dL (0.55-1.3); GLUCOSE,RANDOM 58 mg/dL (74-106); POTASSIUM 4.1 mmol/L (3.5-5.1); SODIUM 136 mmol/L (136-145)
[2017-12-21] MEDS ORDERED: PT OWN MED DRAWER 7, Y5N ONE ×4 (09:36→21:29)
[2017-12-21] MEDS: DIGOXIN 0.125 MG TABLET (FP) PO SCH (09:46)
[2017-12-21] MEDS: POTASSIUM CHLORIDE TABS 20 MEQ TABLET.ER (FP) PO SCH (09:46)
[2017-12-21] MEDS: MULTIVITAMINS THER W-MINERALS COMBO TABLET (FP) PO SCH (09:46)
[2017-12-21] MEDS: LACTOBACILLUS ACIDOPHILUS 1 TABLET PO SCH (09:47)
[2017-12-21] MEDS: GABAPENTIN 100 MG CAPSULE (FP) PO SCH ×2 (09:47→21:38)
[2017-12-21] MEDS: MAGNESIUM CL 64 MG TABLET.SA PO SCH (09:48)
[2017-12-21] MEDS: AMANTADINE HCL 100 MG TABLET PO SCH (09:49)
[2017-12-21] MEDS: METHIMAZOLE 10 MG TABLET (FP) PO SCH ×2 (09:50→21:38)
[2017-12-21] MEDS: AMINO ACIDS/PROTEIN HYDROLYS 30 ML LIQUID.PKT PO SCH ×2 (10:04→17:59)
[2017-12-21 10:28] LABS: PLATELET ESTIMATE ADEQUATE
--- NOTE | 2017-12-21 11:05 | PN ---
Progress Note (short form) - Note Progress Note: s: no cp sob palps dizzy; +abd pain o: Vital Signs Period Temp Pulse Resp BP Sys/Watkins Pulse Ox Last 24 Hr 97.3 F-98.3 F 94-105 20-20 93-109/49-69 95 Constitutional: Yes: Well Nourished, No Distress, Calm Eyes: Yes: Conjunctiva Clear Neck: Yes: Supple, Trachea Midline Respiratory: Yes: Regular, CTA Bilaterally Gastrointestinal: Yes: Normal Bowel Sounds, Soft Cardiovascular: Yes: Pulse Irregular JVD: No Heart Sounds: Yes: S1, S2 Edema: No Integumentary: Yes: no jaundice diaphoresis Neurological: Yes: Aao3 Current Medications Generic Name Dose Route Start Last Admin Trade Name Freq PRN Reason Stop Dose Admin Acetaminophen 650 mg 12/18/17 22:53 Tylenol - PO Q6H PRN FEVER Acetaminophen/Codeine Phosphate 1 tab 12/18/17 22:53 12/20/17 10:14 Tylenol # 3 - PO 1 tab Q8H PRN Administration PAIN LEVEL 7 - 10 Amantadine HCl 100 mg 12/19/17 10:00 12/21/17 09:49 Symmetrel - PO 100 mg DAILY [facility] Administration Amino Acids 30 ml 12/19/17 08:00 12/21/17 10:04 Prosource No Carb Liquid Pkt PO 30 ml BID@0800,1730 [facility] Administration Carbidopa/Levodopa 1 each 12/19/17 14:00 12/21/17 06:21 Sinemet 25/100 - PO 1 each TID [facility] Administration Digoxin 0.125 mg 12/19/17 10:00 12/21/17 09:46 Lanoxin - PO 0.125 mg DAILY [facility] Administration Diltiazem HCl 180 mg 12/19/17 10:00 12/21/17 09:47 Cardizem Cd - PO Not Given DAILY [facility] Gabapentin 100 mg 12/18/17 23:00 12/21/17 09:47 Neurontin - PO 100 mg BID [facility] Administration Lactobacillus Acidophilus 1 tab 12/19/17 10:00 12/21/17 09:47 Bacid - PO 1 tab DAILY [facility] Administration Magnesium Chloride 128 mg 12/19/17 10:00 12/21/17 09:48 Slow-Mag - PO 128 mg DAILY [facility] Administration Methimazole 20 mg 12/18/17 23:00 09/30/18 09:50 Tapazole - PO 20 mg BID [facility] Administration Multivitamins/Minerals 1 each 12/19/17 10:00 12/21/17 09:46 Theragran-M PO 1 each DAILY [facility] Administration Potassium Chloride 20 meq 12/19/17 10:00 12/21/17 09:46 K-Dur - PO 20 meq DAILY [facility] Administration Potassium Phos/Sodium Phos 1 packet 12/19/17 06:00 12/21/17 06:21 Phos-Nak Packet - PO 1 packet TID [facility] Administration Propranolol HCl 60 mg 12/19/17 06:00 12/21/17 06:18 Inderal - PO Not Given TID [facility] Vancomycin HCl 125 mg 12/19/17 18:00 12/21/17 06:19 Vancomycin Oral Solution PO 125 mg Q6HPO [facility] Administration CBC, BMP 12/21/17 06:25 12/21/17 06:25 Assessment/Plan 72F smoker with h/o of htn, frequent falls, parkinsons/dystonia, 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 not on statin, will defer to outpatient md's. - smoking cessation
--- NOTE | 2017-12-21 12:23 | PN ---
Progress Note, Physician History of Present Illness: Pt still with loose BMs and mild abdominal discomfort but mild improvement. Has some mild dysuria. Remains afebrile, alert, without acute distress. - Current Medication List Current Medications: Active Medications Acetaminophen (Tylenol -) 650 mg PO Q6H PRN PRN Reason: FEVER Acetaminophen/Codeine Phosphate (Tylenol # 3 -) 1 tab PO Q8H PRN PRN Reason: PAIN LEVEL 7 - 10 Last Admin: 12/20/17 10:14 Dose: 1 tab Amantadine HCl (Symmetrel -) 100 mg PO DAILY [facility] Last Admin: 12/21/17 09:49 Dose: 100 mg Amino Acids (Prosource No Carb Liquid Pkt) 30 ml PO BID@0800,1730 [facility] Last Admin: 12/21/17 10:04 Dose: 30 ml Carbidopa/Levodopa (Sinemet 25/100 -) 1 each PO TID [facility] Last Admin: 12/21/17 06:21 Dose: 1 each Digoxin (Lanoxin -) 0.125 mg PO DAILY [facility] Last Admin: 12/21/17 09:46 Dose: 0.125 mg Diltiazem HCl (Cardizem Cd -) 180 mg PO DAILY [facility] Last Admin: 12/21/17 09:47 Dose: Not Given Gabapentin (Neurontin -) 100 mg PO BID [facility] Last Admin: 12/21/17 09:47 Dose: 100 mg Lactobacillus Acidophilus (Bacid -) 1 tab PO DAILY [facility] Last Admin: 12/21/17 09:47 Dose: 1 tab Magnesium Chloride (Slow-Mag -) 128 mg PO DAILY [facility] Last Admin: 12/21/17 09:48 Dose: 128 mg Methimazole (Tapazole -) 20 mg PO BID [facility] Last Admin: 12/21/17 09:50 Dose: 20 mg Multivitamins/Minerals (Theragran-M) 1 each PO DAILY [facility] Last Admin: 12/21/17 09:46 Dose: 1 each Potassium Chloride (K-Dur -) 20 meq PO DAILY [facility] Last Admin: 12/21/17 09:46 Dose: 20 meq Potassium Phos/Sodium Phos (Phos-Nak Packet -) 1 packet PO TID [facility] Last Admin: 12/21/17 06:21 Dose: 1 packet Propranolol HCl (Inderal -) 60 mg PO TID [facility] Last Admin: 12/21/17 06:18 Dose: Not Given Vancomycin HCl (Vancomycin Oral Solution) 125 mg PO Q6HPO [facility] Last Admin: 12/21/17 12:00 Dose: 125 mg - Objective Vital Signs: Vital Signs Temperature 97.5 F L 12/21/17 09:39 Pulse Rate 94 H 12/21/17 12:00 Respiratory Rate 20 12/21/17 12:00 Blood Pressure 99/60 12/21/17 12:00 O2 Sat by Pulse Oximetry (%) 95 12/20/17 21:00 Constitutional: Yes: No Distress, Calm Cardiovascular: Yes: Pulse Irregular Respiratory: Yes: CTA Bilaterally Gastrointestinal: Yes: Normal Bowel Sounds, Soft Genitourinary: Yes: WNL Extremities: Yes: WNL Neurological: Yes: Alert Labs: CBC, BMP 12/21/17 06:25 12/21/17 06:25 INR, PTT INR 1.12 (0.83-1.09) H 12/18/17 08:00 Microbiology 12/18/17 18:34 Urine - Urine - Catheterized Urine Culture - Preliminary Klebsiella Pneumoniae Proteus Species 12/18/17 17:49 Stool Salmonella/Shigella Culture - Final NO GROWTH OF SALMONELLA OR SHIGELLA SPECIES OBTAINED 12/18/17 17:49 Stool Campylobacter Culture - Final NO GROWTH OF CAMPYLOBACTER SPECIES OBTAINED 12/18/17 17:49 Stool Yersinia Culture - Final NO GROWTH OF YERSINIA SPECIES OBTAINED 12/18/17 17:49 Stool Vibrio Culture - Final NO GROWTH OF VIBRIO SPECIES OBTAINED 12/18/17 17:49 Stool Escherichia coli 0157 Culture - Final NO GROWTH OF E COLI 0157 OBTAINED 12/18/17 18:30 Blood - Peripheral Venous Blood Culture - Preliminary NO GROWTH OBTAINED AFTER 48 HOURS, INCUBATION TO CONTINUE FOR 3 DAYS. 12/18/17 18:30 Blood - Peripheral Venous Blood Culture - Preliminary NO GROWTH OBTAINED AFTER 48 HOURS, INCUBATION TO CONTINUE FOR 3 DAYS. 12/18/17 17:29 Stool Clostridium difficile Antigen (MARICARMEN) - Final 12/18/17 17:29 Stool Clostridium difficile Toxin Assay - Final Problem List - Problems (1) Colitis Code(s): K52.9 - NONINFECTIVE GASTROENTERITIS AND COLITIS, UNSPECIFIED (2) AAA (abdominal aortic aneurysm) Code(s): I71.4 - ABDOMINAL AORTIC ANEURYSM, WITHOUT RUPTURE Qualifiers: Presence of rupture: without rupture Qualified Code(s): I71.4 - Abdominal aortic aneurysm, without rupture (3) C. difficile diarrhea Code(s): A04.72 - ENTEROCOLITIS D/T CLOSTRIDIUM DIFFICILE, NOT SPCF RECUR (4) HTN (hypertension) Code(s): I10 - ESSENTIAL (PRIMARY) HYPERTENSION (5) Hyperthyroidism Code(s): E05.90 - THYROTOXICOSIS, UNSP WITHOUT THYROTOXIC CRISIS OR STORM (6) Peripheral vascular disease Code(s): I73.9 - PERIPHERAL VASCULAR DISEASE, UNSPECIFIED (7) Afib Code(s): I48.91 - UNSPECIFIED ATRIAL FIBRILLATION Qualifiers: Atrial fibrillation type: chronic Qualified Code(s): I48.2 - Chronic atrial fibrillation Assessment/Plan C. difficile Colitis Rectal bleed UTI - proteus/klebsiella isolated Parkinsons Atrial Fibrillation -- no blood in stool reported today -- pt c/o dysuria, wbc elevated since yesterday -- continue Vancomycin p.o. -- will add Ceftriaxone (pt reports only rash with Penicillin allergy, denies severe reaction), monitor closely with administration as d/w RN -- culture results noted, CDT +, stool cultures neg., mon -- monitor vitals closely
--- NOTE | 2017-12-21 15:09 | PN ---
Progress Note, Physician Chief Complaint: C/O abd paain anfd pain Rt foot - Current Medication List Current Medications: Active Medications Acetaminophen (Tylenol -) 650 mg PO Q6H PRN PRN Reason: FEVER Acetaminophen/Codeine Phosphate (Tylenol # 3 -) 1 tab PO Q8H PRN PRN Reason: PAIN LEVEL 7 - 10 Last Admin: 12/20/17 10:14 Dose: 1 tab Amantadine HCl (Symmetrel -) 100 mg PO DAILY [facility] Last Admin: 12/21/17 09:49 Dose: 100 mg Amino Acids (Prosource No Carb Liquid Pkt) 30 ml PO BID@0800,1730 [facility] Last Admin: 12/21/17 10:04 Dose: 30 ml Carbidopa/Levodopa (Sinemet 25/100 -) 1 each PO TID [facility] Last Admin: 12/21/17 14:27 Dose: 1 each Digoxin (Lanoxin -) 0.125 mg PO DAILY [facility] Last Admin: 12/21/17 09:46 Dose: 0.125 mg Diltiazem HCl (Cardizem Cd -) 180 mg PO DAILY [facility] Last Admin: 12/21/17 09:47 Dose: Not Given Gabapentin (Neurontin -) 100 mg PO BID [facility] Last Admin: 12/21/17 09:47 Dose: 100 mg Lactobacillus Acidophilus (Bacid -) 1 tab PO DAILY [facility] Last Admin: 12/21/17 09:47 Dose: 1 tab Magnesium Chloride (Slow-Mag -) 128 mg PO DAILY [facility] Last Admin: 12/21/17 09:48 Dose: 128 mg Methimazole (Tapazole -) 20 mg PO BID [facility] Last Admin: 12/21/17 09:50 Dose: 20 mg Multivitamins/Minerals (Theragran-M) 1 each PO DAILY [facility] Last Admin: 12/21/17 09:46 Dose: 1 each Potassium Chloride (K-Dur -) 20 meq PO DAILY [facility] Last Admin: 12/21/17 09:46 Dose: 20 meq Potassium Phos/Sodium Phos (Phos-Nak Packet -) 1 packet PO TID [facility] Last Admin: 12/21/17 14:27 Dose: 1 packet Propranolol HCl (Inderal -) 60 mg PO TID [facility] Last Admin: 12/21/17 14:26 Dose: 60 mg Vancomycin HCl (Vancomycin Oral Solution) 125 mg PO Q6HPO [facility] Last Admin: 12/21/17 12:00 Dose: 125 mg - Objective Vital Signs: Vital Signs Temperature 97.5 F L 12/21/17 09:39 Pulse Rate 121 H 12/21/17 14:21 Respiratory Rate 20 12/21/17 14:21 Blood Pressure 106/61 12/21/17 14:21 O2 Sat by Pulse Oximetry (%) 95 12/20/17 21:00 Constitutional: Yes: No Distress, Calm Cardiovascular: Yes: Pulse Irregular Respiratory: Yes: WNL, Regular, CTA Bilaterally. No: Accessory Muscle Use, SOB , Tachypnea, Wheezes Gastrointestinal: Yes: Normal Bowel Sounds, Soft. No: Distention, Tenderness Genitourinary: Yes: Incontinence Edema: No Neurological: Yes: WNL, Alert, Oriented, Confusion (intermittent) Psychiatric: Yes: WNL, Alert, Oriented Labs: CBC, BMP 12/21/17 06:25 12/21/17 06:25 INR, PTT INR 1.12 (0.83-1.09) H 12/18/17 08:00 Problem List - Problems (1) BRBPR (bright red blood per rectum) Assessment/Plan: Most likely Due t collitis on PO vancomycine Code(s): K62.5 - HEMORRHAGE OF ANUS AND RECTUM (2) C. difficile diarrhea Assessment/Plan: On PO Vancomycine no fever TWBC is normal Code(s): A04.72 - ENTEROCOLITIS D/T CLOSTRIDIUM DIFFICILE, NOT SPCF RECUR (3) Hyperthyroidism Assessment/Plan: On Methimazole Code(s): E05.90 - THYROTOXICOSIS, UNSP WITHOUT THYROTOXIC CRISIS OR STORM (4) Afib Assessment/Plan: Chronic not on Ac Code(s): I48.91 - UNSPECIFIED ATRIAL FIBRILLATION (5) Failure to thrive Assessment/Plan: Nutrition consult encourage Po intake Code(s): [id number] - (6) HTN (hypertension) Assessment/Plan: Well controlled cot current management. Code(s): I10 - ESSENTIAL (PRIMARY) HYPERTENSION (7) Parkinson disease Assessment/Plan: No active issue Code(s): G20 - PARKINSON'S DISEASE (8) Peripheral vascular disease Assessment/Plan: AAA cont current management Code(s): I73.9 - PERIPHERAL VASCULAR DISEASE, UNSPECIFIED (9) UTI (urinary tract infection) Assessment/Plan: Grew Kleibsella and proteus Id put on Ceftriaxone. Code(s): N39.0 - URINARY TRACT INFECTION, SITE NOT SPECIFIED Qualifiers: Urinary tract infection type: acute cystitis Hematuria presence: with hematuria Qualified Code(s): N30.01 - Acute cystitis with hematuria
[2017-12-22] MEDS: NAPH,MB-DB/K PH,MBDB POWDER PACKET PO SCH ×3 (05:39→22:13)
[2017-12-22] MEDS: CARBIDOPA/LEVODOPA 25/100 TABLET (FP) PO SCH ×3 (05:39→22:13)
[2017-12-22] MEDS: VANCOMYCIN 250 MG/5 ML ORAL SOLUTION PO SCH ×4 (05:40→23:17)
[2017-12-22] MEDS ORDERED: PT OWN MED DRAWER 7, Y5N ONE ×2 (07:02→10:23)
[2017-12-22 07:49] LABS: BASO % 0.5 % (0-2.0); EOS % 0.5 % (0-4.5); HEMATOCRIT 32.7 % (32.4-45.2); HEMOGLOBIN 10.4 GM/dL (10.7-15.3); LYMPH % 27.5 % (8-40); MCH 29.7 pg (25.7-33.7); MCHC 31.9 g/dl (32.0-36.0); MEAN CELL VOLUME 92.9 fl (80-96); MEAN PLT VOLUME 6.3 fl (7.5-11.1); MONO % 5.6 % (3.8-10.2); NEUT % 65.9 % (42.8-82.8); PLATELET COUNT 404 K/MM3 (134-434); RBC 3.52 M/mm3 (3.60-5.2); RDW 22.5 % (11.6-15.6); WHITE BLOOD COUNT 8.2 K/mm3 (4.0-10.0)
[2017-12-22 08:30] LABS: ANION GAP 6 MMOL/L (8-16); BLOOD UREA NITROGEN 4 mg/dL (7-18); CALCIUM 8.1 mg/dL (8.5-10.1); CHLORIDE 101 mmol/L (98-107); CO2 30 mmol/L (21-32); CREATININE 0.5 mg/dL (0.55-1.3); GLUCOSE,RANDOM 69 mg/dL (74-106); POTASSIUM 3.5 mmol/L (3.5-5.1); SODIUM 137 mmol/L (136-145)
[2017-12-22] MEDS: AMINO ACIDS/PROTEIN HYDROLYS 30 ML LIQUID.PKT PO SCH ×2 (08:42→17:28)
--- NOTE | 2017-12-22 08:57 | PN ---
Progress Note (short form) - Note Progress Note: Neurology HISTORY OF PRESENT ILLNESS: 72 year old female with a past medical history significant for colitis with C diff presented to the ED with diarrhea. Per notes, the reported stool has been bloody since discharge from the hospital 2 weeks ago. WBC 9.8, Stool Occ +, H/H was 10.4/32.1. was consulted by nurse practitioner to evaluate Parkinson's disease. In the past patient seen as an outpatient by Dr. Medina but is not maintained follow-up. During my evaluation, she did not demonstrate significant cogwheel rigidity and I did not appreciate a tremor. Over weekend, no neurologic events and remains stable. Was continued on her Sinemet and amantadine. Allergies aspirin Allergy (Verified 12/18/17 17:05) Penicillins Allergy (Verified 12/18/17 17:05) Active Medications Acetaminophen (Tylenol -) 650 mg PO Q6H PRN PRN Reason: FEVER Amantadine HCl (Symmetrel -) 100 mg PO DAILY [facility] Last Admin: 12/21/17 09:49 Dose: 100 mg Amino Acids (Prosource No Carb Liquid Pkt) 30 ml PO BID@0800,1730 [facility] Last Admin: 12/21/17 17:59 Dose: 30 ml Carbidopa/Levodopa (Sinemet 25/100 -) 1 each PO TID [facility] Last Admin: 12/22/17 05:39 Dose: 1 each Digoxin (Lanoxin -) 0.125 mg PO DAILY [facility] Last Admin: 12/21/17 09:46 Dose: 0.125 mg Diltiazem HCl (Cardizem Cd -) 180 mg PO DAILY [facility] Last Admin: 12/21/17 09:47 Dose: Not Given Gabapentin (Neurontin -) 100 mg PO BID [facility] Last Admin: 12/21/17 21:38 Dose: 100 mg Lactobacillus Acidophilus (Bacid -) 1 tab PO DAILY [facility] Last Admin: 12/21/17 09:47 Dose: 1 tab Magnesium Chloride (Slow-Mag -) 128 mg PO DAILY [facility] Last Admin: 12/21/17 09:48 Dose: 128 mg Methimazole (Tapazole -) 20 mg PO BID [facility] Last Admin: 12/21/17 21:38 Dose: 20 mg Multivitamins/Minerals (Theragran-M) 1 each PO DAILY [facility] Last Admin: 12/21/17 09:46 Dose: 1 each Potassium Chloride (K-Dur -) 20 meq PO DAILY [facility] Last Admin: 12/21/17 09:46 Dose: 20 meq Potassium Phos/Sodium Phos (Phos-Nak Packet -) 1 packet PO TID [facility] Last Admin: 12/22/17 05:39 Dose: 1 packet Propranolol HCl (Inderal -) 60 mg PO TID [facility] Last Admin: 12/22/17 05:40 Dose: Not Given Vancomycin HCl (Vancomycin Oral Solution) 125 mg PO Q6HPO [facility] Last Admin: 12/22/17 05:40 Dose: 125 mg Vital Signs Period Temp Pulse Resp BP Sys/Watkins Pulse Ox Last 24 Hr 97.4 F-98.2 F 65-121 20-20 92-106/50-65 96-97 GENERAL: Awake, alert, and oriented to person, place and year; in no acute distress. HEAD: Normal with no signs of trauma. temporal wasting noted EYES: Pupils equal, round and reactive to light, extraocular movements intact, sclera anicteric, conjunctiva clear. No lid lag. EARS, NOSE, THROAT: Ears normal, nares patent, oropharynx clear without exudates. Moist mucous membranes. NECK: Normal range of motion, supple without lymphadenopathy, JVD, or masses. LUNGS: Breath sounds equal, clear to auscultation bilaterally. No wheezes, and no crackles. No accessory muscle use. HEART: Regular rate and rhythm, normal S1 and S2 without murmur, rub or gallop. ABDOMEN: Soft, nontender, not distended, normoactive bowel sounds, no guarding, no rebound, no masses. No hepatomegaly or splenomegaly. MUSCULOSKELETAL: Normal range of motion at all joints. No bony deformities or tenderness. No CVA tenderness. + cachexic UPPER EXTREMITIES: 2+ pulses, warm, well-perfused. No cyanosis. No clubbing. No peripheral edema. LOWER EXTREMITIES: 2+ pulses, warm, well-perfused. No calf tenderness. No peripheral edema. left toe amputations, 2nd and 3rd NEUROLOGICAL: Cranial nerves II-XII intact. bradykinesia noted, minimal cogwheeling in upper extremities, no tremor noted, gait deferred PSYCHIATRIC: Cooperative. Good eye contact. Appropriate mood and affect. SKIN: Warm, dry, normal turgor, no rashes or lesions noted, normal capillary refill. CBCD WBC 8.2 K/mm3 (4.0-10.0) 12/22/17 07:20 RBC 3.52 M/mm3 (3.60-5.2) L 12/22/17 07:20 Hgb 10.4 GM/dL (10.7-15.3) L 12/22/17 07:20 Hct 32.7 % (32.4-45.2) 12/22/17 07:20 MCV 92.9 fl (80-96) 12/22/17 07:20 MCHC 31.9 g/dl (32.0-36.0) L 12/22/17 07:20 RDW 22.5 % (11.6-15.6) H 12/22/17 07:20 Plt Count 404 K/MM3 (134-434) 12/22/17 07:20 MPV 6.3 fl (7.5-11.1) L 12/22/17 07:20 CMP Sodium 137 mmol/L (136-145) 12/22/17 07:20 Potassium 3.5 mmol/L (3.5-5.1) 12/22/17 07:20 Chloride 101 mmol/L (98-107) 12/22/17 07:20 Carbon Dioxide 30 mmol/L (21-32) 12/22/17 07:20 Anion Gap 6 MMOL/L (8-16) L 12/22/17 07:20 BUN 4 mg/dL (7-18) L 12/22/17 07:20 Creatinine 0.5 mg/dL (0.55-1.3) L 12/22/17 07:20 Creat Clearance w eGFR > 60 (>60) 12/22/17 07:20 Random Glucose 69 mg/dL (74-106) L 12/22/17 07:20 Calcium 8.1 mg/dL (8.5-10.1) L 12/22/17 07:20 Total Bilirubin 0.2 mg/dL (0.2-1) 12/18/17 08:00 AST 8 U/L (15-37) L 12/18/17 08:00 ALT 9 U/L (13-61) L 12/18/17 08:00 Alkaline Phosphatase 84 U/L (45-117) 12/18/17 08:00 Total Protein 6.8 g/dl (6.4-8.2) 12/18/17 08:00 Albumin 1.8 g/dl (3.4-5.0) L 12/18/17 08:00 Radiology Reports ABd/Pelvis CT with contrast reviewed, consistent with colitis ASSESSMENT/PLAN: 72 year old female with a past medical history significant for colitis with C diff presented to the ED with diarrhea. Per notes, the reported stool has been bloody since discharge from the hospital 2 weeks ago. WBC 9.8, Stool Occ +, H/H was 10.4/32.1. was consulted by nurse practitioner to evaluate Parkinson's disease. In the past patient seen as an outpatient by Dr. Medina but is not maintained follow-up. During my evaluation, she does not demonstrate significant cogwheel rigidity and I did not appreciate a tremor. Although she does have bradykinesia and does meet the diagnosis for Parkinson's disease it seems to me that this is stable. Follow-up recommendations from GI and continue supportive care. Monitor blood pressure, maintain normotensive range. No further imaging or neurologic workup indicated at this time. Remains stable on parkinson's medications at this time
[2017-12-22] MEDS ORDERED: DEXTROSE 5%-WATER - 50 ML IVPB ONE (10:23)
[2017-12-22] MEDS ORDERED: cefTRIAXone SODIUM 1 GM VIAL ONE (10:23)
[2017-12-22] MEDS ORDERED: KCL 10 MEQ IVPB 10 MEQ/100 ML INFUS.BAG IVPB SCH (10:30)
--- NOTE | 2017-12-22 10:40 | PN ---
Progress Note, Physician Chief Complaint: Pt lying in bed in no acute distress. feels better. bms more formed. Denies any chest pain, sob, n/v - Current Medication List Current Medications: Active Medications Acetaminophen (Tylenol -) 650 mg PO Q6H PRN PRN Reason: FEVER Amantadine HCl (Symmetrel -) 100 mg PO DAILY [facility] Last Admin: 12/21/17 09:49 Dose: 100 mg Amino Acids (Prosource No Carb Liquid Pkt) 30 ml PO BID@0800,1730 [facility] Last Admin: 12/21/17 17:59 Dose: 30 ml Carbidopa/Levodopa (Sinemet 25/100 -) 1 each PO TID [facility] Last Admin: 12/22/17 05:39 Dose: 1 each Digoxin (Lanoxin -) 0.125 mg PO DAILY [facility] Last Admin: 12/21/17 09:46 Dose: 0.125 mg Diltiazem HCl (Cardizem Cd -) 180 mg PO DAILY [facility] Last Admin: 12/21/17 09:47 Dose: Not Given Gabapentin (Neurontin -) 100 mg PO BID [facility] Last Admin: 12/21/17 21:38 Dose: 100 mg Potassium Chloride (Potassium Chloride 10 Meq Premix Ivpb -) 10 meq in 100 mls @ 100 mls/hr IVPB Q60M [facility] Stop: 12/22/17 12:29 Ceftriaxone Sodium 1 gm/ (Dextrose) 50 mls @ 100 mls/hr IVPB DAILY [facility]; Protocol Lactobacillus Acidophilus (Bacid -) 1 tab PO DAILY [facility] Last Admin: 12/21/17 09:47 Dose: 1 tab Magnesium Chloride (Slow-Mag -) 128 mg PO DAILY [facility] Last Admin: 12/21/17 09:48 Dose: 128 mg Methimazole (Tapazole -) 20 mg PO BID [facility] Last Admin: 12/21/17 21:38 Dose: 20 mg Multivitamins/Minerals (Theragran-M) 1 each PO DAILY [facility] Last Admin: 12/21/17 09:46 Dose: 1 each Potassium Chloride (K-Dur -) 20 meq PO DAILY [facility] Last Admin: 12/21/17 09:46 Dose: 20 meq Potassium Phos/Sodium Phos (Phos-Nak Packet -) 1 packet PO TID [facility] Last Admin: 12/22/17 05:39 Dose: 1 packet Propranolol HCl (Inderal -) 60 mg PO TID [facility] Last Admin: 12/22/17 05:40 Dose: Not Given Vancomycin HCl (Vancomycin Oral Solution) 125 mg PO Q6HPO [facility] Last Admin: 12/22/17 05:40 Dose: 125 mg - Objective Vital Signs: Vital Signs Temperature 97.7 F 12/22/17 06:00 Pulse Rate 78 12/22/17 06:00 Respiratory Rate 20 12/22/17 06:00 Blood Pressure 94/50 L 12/22/17 06:00 O2 Sat by Pulse Oximetry (%) 97 12/21/17 21:00 Constitutional: Yes: No Distress, Calm, Thin Cardiovascular: Yes: Pulse Irregular Respiratory: Yes: WNL, Regular, CTA Bilaterally. No: Accessory Muscle Use, Rhonchi, SOB, Tachypnea, Wheezes Gastrointestinal: Yes: WNL, Normal Bowel Sounds, Soft. No: Distention, Tenderness Genitourinary: Yes: Incontinence Edema: No Neurological: Yes: WNL, Alert, Oriented, Confusion (intermittent) Psychiatric: Yes: WNL, Alert, Oriented Labs: CBC, BMP 12/22/17 07:20 12/22/17 07:20 INR, PTT INR 1.12 (0.83-1.09) H 12/18/17 08:00 Problem List - Problems (1) Clostridium difficile colitis Code(s): A04.72 - ENTEROCOLITIS D/T CLOSTRIDIUM DIFFICILE, NOT SPCF RECUR Assessment/Plan (1) Clostridium difficile colitis Assessment/Plan: improving, bms more formed cdiff antigen +, toxin negative stool culture negative cdiff PCR toxin pending PO vancomycin day 4 diet advanced GI/ID following Code(s): A04.72 - ENTEROCOLITIS D/T CLOSTRIDIUM DIFFICILE, NOT SPCF RECUR (2) BRBPR (bright red blood per rectum) Assessment/Plan: 2/2 colitis hg/hct at baseline consider egd/colonoscopy outpt once colitis resolves GI following Code(s): K62.5 - HEMORRHAGE OF ANUS AND RECTUM (3) UTI (urinary tract infection) Assessment/Plan: symptomatic, dysuria UA+, UC grew klebsiella ceftriaxone day 1 Code(s): N39.0 - URINARY TRACT INFECTION, SITE NOT SPECIFIED Qualifiers: Urinary tract infection type: acute cystitis Hematuria presence: with hematuria Qualified Code(s): N30.01 - Acute cystitis with hematuria (4) Atrial fibrillation Assessment/Plan: rate controlled continue home meds AC contraindicated 2/2 risk for falls Code(s): I48.91 - UNSPECIFIED ATRIAL FIBRILLATION (5) Chronic diarrhea Assessment/Plan: acute on chronic improving as above Code(s): K52.9 - NONINFECTIVE GASTROENTERITIS AND COLITIS, UNSPECIFIED (6) Occult blood in stools Assessment/Plan: improved, 2/2 colitis hg/hct stable as above Code(s): R19.5 - OTHER FECAL ABNORMALITIES (7) Parkinson disease Assessment/Plan: chronic dystonia, bradykinisia with intermittent confusion home med: rytary 36.25/145 2 caps bid neurology consult appreciated Code(s): G20 - PARKINSON'S DISEASE (8) Peripheral vascular disease Assessment/Plan: s/p angiogram, stent lle , 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 continue plavix Code(s): I73.9 - PERIPHERAL VASCULAR DISEASE, UNSPECIFIED (9) Severe malnutrition Assessment/Plan: ensure encourage po intake ensure supplements, prosource Code(s): E43 - UNSPECIFIED SEVERE PROTEIN-CALORIE MALNUTRITION (10) Dystonia Assessment/Plan: secondary to PD chronic Code(s): G24.9 - DYSTONIA, UNSPECIFIED (11) Hypophonia Assessment/Plan: secondary to PD chronic Code(s): R49.8 - OTHER VOICE AND RESONANCE DISORDERS (12) Hyperthyroidism Assessment/Plan: stable continue tapazole 20 bid outpt endocrine f/u Code(s): E05.90 - THYROTOXICOSIS, UNSP WITHOUT THYROTOXIC CRISIS OR STORM (13) HTN (hypertension) Assessment/Plan: controlled,hypotensive, asymptomatic cardiology following Code(s): I10 - ESSENTIAL (PRIMARY) HYPERTENSION Qualifiers: Hypertension type: essential hypertension Qualified Code(s): I10 - Essential (primary) hypertension (14) AAA (abdominal aortic aneurysm) Assessment/Plan: 4.8cm, chronic recommend close f/u with cardiology outpt monitor Code(s): I71.4 - ABDOMINAL AORTIC ANEURYSM, WITHOUT RUPTURE Qualifiers: Presence of rupture: without rupture Qualified Code(s): I71.4 - Abdominal aortic aneurysm, without rupture (15) Hypokalemia Assessment/Plan: K 3.5 kcl po daily kcl iv 10meq x 1 replete prn Code(s): E87.6 - HYPOKALEMIA (16) Hypomagnesemia Assessment/Plan: Mg 1.7 Mg iv 2g x 1 monitor bmp Code(s): E83.42 - HYPOMAGNESEMIA (17) Hypotension Assessment/Plan: asymptomatic tends to run low at baseline cardiology following
[2017-12-22] MEDS: CEFTRIAXONE 1 GM in DEXTROSE 5%-WATER - 50 ML IVPB SCH (10:43)
[2017-12-22] MEDS: LACTOBACILLUS ACIDOPHILUS 1 TABLET PO SCH (10:44)
[2017-12-22] MEDS: MULTIVITAMINS THER W-MINERALS COMBO TABLET (FP) PO SCH (10:44)
[2017-12-22] MEDS: DIGOXIN 0.125 MG TABLET (FP) PO SCH (10:44)
[2017-12-22] MEDS: POTASSIUM CHLORIDE TABS 20 MEQ TABLET.ER (FP) PO SCH (10:45)
[2017-12-22] MEDS: GABAPENTIN 100 MG CAPSULE (FP) PO SCH ×2 (10:45→22:13)
[2017-12-22] MEDS: MAGNESIUM CL 64 MG TABLET.SA PO SCH (10:46)
[2017-12-22] MEDS: AMANTADINE HCL 100 MG TABLET PO SCH (10:46)
[2017-12-22] MEDS: METHIMAZOLE 10 MG TABLET (FP) PO SCH ×2 (10:47→22:12)
--- NOTE | 2017-12-22 11:01 | PN ---
Progress Note, Physician History of Present Illness: patient starting to feel better no new issues stools are forming patient feels better - Current Medication List Current Medications: Active Medications Acetaminophen (Tylenol -) 650 mg PO Q6H PRN PRN Reason: FEVER Amantadine HCl (Symmetrel -) 100 mg PO DAILY [facility] [place] Last Admin: 12/22/17 10:46 Dose: 100 mg Amino Acids (Prosource No Carb Liquid Pkt) 30 ml PO BID@0800,1730 [facility] [place] Last Admin: 12/22/17 08:42 Dose: 30 ml Carbidopa/Levodopa (Sinemet 25/100 -) 1 each PO TID [facility] [place] Last Admin: 12/22/17 05:39 Dose: 1 each Digoxin (Lanoxin -) 0.125 mg PO DAILY [facility] [place] Last Admin: 12/22/17 10:44 Dose: 0.125 mg Diltiazem HCl (Cardizem Cd -) 180 mg PO DAILY [facility] [place] Last Admin: 12/22/17 10:40 Dose: Not Given Gabapentin (Neurontin -) 100 mg PO BID [facility] [place] Last Admin: 12/22/17 10:45 Dose: 100 mg Potassium Chloride (Potassium Chloride 10 Meq Premix Ivpb -) 10 meq in 100 mls @ 100 mls/hr IVPB Q60M [facility] [place] Stop: 12/22/17 11:29 Ceftriaxone Sodium 1 gm/ (Dextrose) 50 mls @ 100 mls/hr IVPB DAILY [facility] [place]; Protocol Last Admin: 12/22/17 10:43 Dose: 100 mls/hr Lactobacillus Acidophilus (Bacid -) 1 tab PO DAILY [facility] [place] Last Admin: 12/22/17 10:44 Dose: 1 tab Magnesium Chloride (Slow-Mag -) 128 mg PO DAILY [facility] [place] Last Admin: 12/22/17 10:46 Dose: 128 mg Methimazole (Tapazole -) 20 mg PO BID [facility] [place] Last Admin: 12/22/17 10:47 Dose: 20 mg Multivitamins/Minerals (Theragran-M) 1 each PO DAILY [facility] [place] Last Admin: 12/22/17 10:44 Dose: 1 each Potassium Chloride (K-Dur -) 20 meq PO DAILY [facility] [place] Last Admin: 12/22/17 10:45 Dose: 20 meq Potassium Phos/Sodium Phos (Phos-Nak Packet -) 1 packet PO TID [facility] [place] Last Admin: 12/22/17 05:39 Dose: 1 packet Propranolol HCl (Inderal -) 60 mg PO TID [facility] [place] Last Admin: 12/22/17 05:40 Dose: Not Given Vancomycin HCl (Vancomycin Oral Solution) 125 mg PO Q6HPO [facility] [place] Last Admin: 12/22/17 05:40 Dose: 125 mg - Objective Vital Signs: Vital Signs Temperature 97.7 F 12/22/17 06:00 Pulse Rate 75 12/22/17 10:44 Respiratory Rate 20 12/22/17 06:00 Blood Pressure 94/50 L 12/22/17 06:00 O2 Sat by Pulse Oximetry (%) 97 12/21/17 21:00 Constitutional: Yes: No Distress, Calm Cardiovascular: Yes: Regular Rate and Rhythm Respiratory: Yes: Regular, CTA Bilaterally Gastrointestinal: Yes: Normal Bowel Sounds, Soft, Other (dirrhoea improving) Musculoskeletal: Yes: WNL Extremities: Yes: WNL Neurological: Yes: Alert Psychiatric: Yes: Alert Labs: CBC, BMP 12/22/17 07:20 12/22/17 07:20 INR, PTT INR 1.12 (0.83-1.09) H 12/18/17 08:00 Assessment/Plan Assessment/Plan (1) Colitis Code(s): K52.9 - NONINFECTIVE GASTROENTERITIS AND COLITIS, UNSPECIFIED (2) BRBPR (bright red blood per rectum) Code(s): K62.5 - HEMORRHAGE OF ANUS AND RECTUM (3) UTI (urinary tract infection) Code(s): N39.0 - URINARY TRACT INFECTION, SITE NOT SPECIFIED Qualifiers: Urinary tract infection type: acute cystitis Hematuria presence: with hematuria Qualified Code(s): N30.01 - Acute cystitis with hematuria (4) Atrial fibrillation Code(s): I48.91 - UNSPECIFIED ATRIAL FIBRILLATION (3) Chronic diarrhea Code(s): K52.9 - NONINFECTIVE GASTROENTERITIS AND COLITIS, UNSPECIFIED (4) Occult blood in stools Code(s): R19.5 - OTHER FECAL ABNORMALITIES (5) Parkinson disease Code(s): G20 - PARKINSON'S DISEASE (6) Peripheral vascular disease Code(s): I73.9 - PERIPHERAL VASCULAR DISEASE, UNSPECIFIED (7) Severe malnutrition Code(s): E43 - UNSPECIFIED SEVERE PROTEIN-CALORIE MALNUTRITION (8) Dystonia Code(s): G24.9 - DYSTONIA, UNSPECIFIED (9) Hypophonia Code(s): R49.8 - OTHER VOICE AND RESONANCE DISORDERS (10) Hyperthyroidism Code(s): E05.90 - THYROTOXICOSIS, UNSP WITHOUT THYROTOXIC CRISIS OR STORM (11) HTN (hypertension) Code(s): I10 - ESSENTIAL (PRIMARY) HYPERTENSION Qualifiers: Hypertension type: essential hypertension Qualified Code(s): I10 - Essential (primary) hypertension (12) AAA (abdominal aortic aneurysm) Code(s): I71.4 - ABDOMINAL AORTIC ANEURYSM, WITHOUT RUPTURE Qualifiers: Presence of rupture: without rupture Qualified Code(s): I71.4 - Abdominal aortic aneurysm, without rupture (13) Hypokalemia Code(s): E87.6 - HYPOKALEMIA (14) Hypomagnesemia Code(s): E83.42 - HYPOMAGNESEMIA (15)cdiff plan continue current abx continue oral vanco rest as per the team patient improving
--- NOTE | 2017-12-22 11:12 | PN ---
GI Progress Note Subjective: clinically improved states abdominal pain improved and that she is hungry Nurse reports more formed bowel movements C Diff antigen + toxin neg. Toxin PCR had been previously ordered but never collected - Objective Vital Signs: Vital Signs Temperature 97.7 F 12/22/17 06:00 Pulse Rate 75 12/22/17 10:44 Respiratory Rate 20 12/22/17 06:00 Blood Pressure 94/50 L 12/22/17 06:00 O2 Sat by Pulse Oximetry (%) 97 12/21/17 21:00 Constitutional: Calm Eyes: No: Sclera Icterus Cardiovascular: Yes: Regular Rate and Rhythm Respiratory: Yes: CTA Bilaterally Gastrointestinal Inspection: No: Distention ...Auscultate: Yes: Normoactive Bowel Sounds ...Palpate: No: Tenderness (Much improved TTP) Edema: No (No LE edema) Labs: CBC, BMP 12/22/17 07:20 12/22/17 07:20 INR, PTT INR 1.12 (0.83-1.09) H 12/18/17 08:00 Problem List - Problems (1) Colitis Assessment/Plan: Suspected C. Diff colitis: Clinically much improved Continue Vancocin 125mg PO Q 6 hrs for 14 days then will likely need taper (was treated previously). Taper could look like: 125mg PO q 6 hrs for 14 days then 125mg PO q 8 hrs for 1 week then 125mg PO BID for 1 week then 125mg PO daily for 1 week then 125mg PO QOD for 1 week then D/C ID following Advanced diet today Code(s): K52.9 - NONINFECTIVE GASTROENTERITIS AND COLITIS, UNSPECIFIED
--- NOTE | 2017-12-22 11:17 | PN ---
Progress Note (short form) - Note Progress Note: s: no cp sob palps dizzy; less abd pain o: Vital Signs Period Temp Pulse Resp BP Sys/Watkins Pulse Ox Last 24 Hr 97.4 F-98.2 F 65-121 20-20 92-106/50-65 97 Constitutional: Yes: Well Nourished, No Distress, Calm Eyes: Yes: Conjunctiva Clear Neck: Yes: Supple, Trachea Midline Respiratory: Yes: Regular, CTA Bilaterally Gastrointestinal: Yes: Normal Bowel Sounds, Soft Cardiovascular: Yes: Pulse Irregular JVD: No Heart Sounds: Yes: S1, S2 Edema: No Integumentary: Yes: no jaundice diaphoresis Neurological: Yes: Aao3 Current Medications Generic Name Dose Route Start Last Admin Trade Name Freq PRN Reason Stop Dose Admin Acetaminophen 650 mg 12/18/17 22:53 Tylenol - PO Q6H PRN FEVER Amantadine HCl 100 mg 12/19/17 10:00 12/22/17 10:46 Symmetrel - PO 100 mg DAILY [facility] Administration Amino Acids 30 ml 12/19/17 08:00 12/22/17 08:42 Prosource No Carb Liquid Pkt PO 30 ml BID@0800,1730 [facility] Administration Carbidopa/Levodopa 1 each 12/19/17 14:00 12/22/17 05:39 Sinemet 25/100 - PO 1 each TID [facility] Administration Digoxin 0.125 mg 12/19/17 10:00 12/22/17 10:44 Lanoxin - PO 0.125 mg DAILY [facility] Administration Diltiazem HCl 180 mg 12/19/17 10:00 12/22/17 10:40 Cardizem Cd - PO Not Given DAILY [facility] Gabapentin 100 mg 12/18/17 23:00 12/22/17 10:45 Neurontin - PO 100 mg BID [facility] Administration Potassium Chloride 10 meq in 100 mls @ 100 mls/hr 12/22/17 10:30 Potassium Chloride 10 Meq Premix Ivpb - IVPB 12/22/17 11:29 Q60M [facility] Ceftriaxone Sodium 1 gm/ 50 mls @ 100 mls/hr 12/22/17 10:00 12/22/17 10:43 Dextrose IVPB 100 mls/hr DAILY [facility] Administration Protocol Lactobacillus Acidophilus 1 tab 12/19/17 10:00 12/22/17 10:44 Bacid - PO 1 tab DAILY [facility] Administration Magnesium Chloride 128 mg 12/19/17 10:00 12/22/17 10:46 Slow-Mag - PO 128 mg DAILY [facility] Administration Methimazole 20 mg 12/18/17 23:00 12/22/17 10:47 Tapazole - PO 20 mg BID [facility] Administration Multivitamins/Minerals 1 each 12/19/17 10:00 12/22/17 10:44 Theragran-M PO 1 each DAILY [facility] Administration Potassium Chloride 20 meq 12/19/17 10:00 12/22/17 10:45 K-Dur - PO 20 meq DAILY [facility] Administration Potassium Phos/Sodium Phos 1 packet 12/19/17 06:00 12/22/17 05:39 Phos-Nak Packet - PO 1 packet TID [facility] Administration Propranolol HCl 60 mg 12/19/17 06:00 12/22/17 05:40 Inderal - PO Not Given TID [facility] Vancomycin HCl 125 mg 12/19/17 18:00 12/22/17 05:40 Vancomycin Oral Solution PO 125 mg Q6HPO [facility] Administration CBC, BMP 12/22/17 07:20 12/22/17 07:20 Assessment/Plan 72F smoker with h/o of htn, frequent falls, parkinsons/dystonia, pvd 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 and chronic LLE wound, AAA (4.7 cm), prior heavy etoh use prior heel varnisher CA s/p chemo/xrt, anxiety who presents with colitis. colitis, h/o C diff - CT abd shows colitis - GI following - holding clopidogrel in setting of bloody stool afib - on propranolol 60 mg TID, diltiazem 180 mg, digoxin with rate controlled. while septic here occasionally have needed to hold bb/ccb, cont dig, rate ok so far. - not on AC due to risk of falls, was on clopidogrel monotherapy (asa allergy), holding in setting of GIB Hyperthyroidism - on tapazole, propranolol - manage per primary team htn - controlled/low - cont current meds for rate control as bp permits pvd/AAA/+ tobacco - con't plavix. not on statin, will defer to outpatient md's. - smoking cessation
[2017-12-22 11:20] LABS: MAGNESIUM 1.7 mg/dL (1.8-2.4)
[2017-12-22] MEDS ORDERED: MAGNESIUM SULFATE IN WATER 2 GM/50 ML IVPB IVPB ONE (12:00)
[2017-12-23] MEDS: CARBIDOPA/LEVODOPA 25/100 TABLET (FP) PO SCH ×2 (06:58→14:15)
[2017-12-23] MEDS: NAPH,MB-DB/K PH,MBDB POWDER PACKET PO SCH ×2 (06:58→14:15)
[2017-12-23] MEDS: VANCOMYCIN 250 MG/5 ML ORAL SOLUTION PO SCH ×2 (06:58→12:06)
[2017-12-23 08:30] LABS: ANION GAP 7 MMOL/L (8-16); BLOOD UREA NITROGEN 5 mg/dL (7-18); CALCIUM 7.2 mg/dL (8.5-10.1); CHLORIDE 102 mmol/L (98-107); CO2 26 mmol/L (21-32); CREATININE 0.5 mg/dL (0.55-1.3); GLUCOSE,RANDOM 80 mg/dL (74-106); MAGNESIUM 1.9 mg/dL (1.8-2.4); POTASSIUM 3.1 mmol/L (3.5-5.1); SODIUM 135 mmol/L (136-145)
[2017-12-23 08:35] LABS: BASO % 0.3 % (0-2.0); EOS % 0.6 % (0-4.5); HEMATOCRIT 29.7 % (32.4-45.2); HEMOGLOBIN 9.7 GM/dL (10.7-15.3); LYMPH % 24.8 % (8-40); MCH 30.3 pg (25.7-33.7); MCHC 32.5 g/dl (32.0-36.0); MEAN CELL VOLUME 93.3 fl (80-96); MEAN PLT VOLUME 6.5 fl (7.5-11.1); MONO % 5.3 % (3.8-10.2); PLATELET COUNT 355 K/MM3 (134-434); RBC 3.19 M/mm3 (3.60-5.2); RDW 22.6 % (11.6-15.6); WHITE BLOOD COUNT 8.5 K/mm3 (4.0-10.0)
[2017-12-23] MEDS: AMINO ACIDS/PROTEIN HYDROLYS 30 ML LIQUID.PKT PO SCH (08:45)
--- NOTE | 2017-12-23 09:29 | PN ---
Progress Note (short form) - Note Progress Note: Neurology HISTORY OF PRESENT ILLNESS: 72 year old female with a past medical history significant for colitis with C diff presented to the ED with diarrhea. Per notes, the reported stool has been bloody since discharge from the hospital 2 weeks ago. WBC 9.8, Stool Occ +, H/H was 10.4/32.1. was consulted by nurse practitioner to evaluate Parkinson's disease. In the past patient seen as an outpatient by Dr. Medina but is not maintained follow-up. During my evaluation, she did not demonstrate significant cogwheel rigidity and I did not appreciate a tremor. Over weekend, no neurologic events and remains stable. Was continued on her Sinemet and amantadine, remains stable. Active Medications Acetaminophen (Tylenol -) 650 mg PO Q6H PRN PRN Reason: FEVER Amantadine HCl (Symmetrel -) 100 mg PO DAILY [facility] Last Admin: 12/22/17 10:46 Dose: 100 mg Amino Acids (Prosource No Carb Liquid Pkt) 30 ml PO BID@0800,1730 [facility] Last Admin: 12/23/17 08:45 Dose: 30 ml Carbidopa/Levodopa (Sinemet 25/100 -) 1 each PO TID [facility] Last Admin: 12/23/17 06:58 Dose: 1 each Digoxin (Lanoxin -) 0.125 mg PO DAILY [facility] Last Admin: 12/22/17 10:44 Dose: 0.125 mg Diltiazem HCl (Cardizem Cd -) 180 mg PO DAILY [facility] Last Admin: 12/22/17 10:40 Dose: Not Given Gabapentin (Neurontin -) 100 mg PO BID [facility] Last Admin: 12/22/17 22:13 Dose: 100 mg Ceftriaxone Sodium 1 gm/ (Dextrose) 50 mls @ 100 mls/hr IVPB DAILY [facility]; Protocol Last Admin: 12/22/17 10:43 Dose: 100 mls/hr Potassium Chloride (Potassium Chloride 10 Meq Premix Ivpb -) 10 meq in 100 mls @ 100 mls/hr IVPB Q60M [facility] Stop: 12/23/17 12:29 Lactobacillus Acidophilus (Bacid -) 1 tab PO DAILY [facility] Last Admin: 12/22/17 10:44 Dose: 1 tab Magnesium Chloride (Slow-Mag -) 128 mg PO DAILY [facility] Last Admin: 12/22/17 10:46 Dose: 128 mg Methimazole (Tapazole -) 20 mg PO BID [facility] Last Admin: 12/22/17 22:12 Dose: 20 mg Multivitamins/Minerals (Theragran-M) 1 each PO DAILY [facility] Last Admin: 12/22/17 10:44 Dose: 1 each Potassium Chloride (K-Dur -) 20 meq PO DAILY [facility] Last Admin: 12/22/17 10:45 Dose: 20 meq Potassium Phos/Sodium Phos (Phos-Nak Packet -) 1 packet PO TID [facility] Last Admin: 12/23/17 06:58 Dose: 1 packet Propranolol HCl (Inderal -) 60 mg PO TID [facility] Last Admin: 12/23/17 06:58 Dose: Not Given Vancomycin HCl (Vancomycin Oral Solution) 125 mg PO Q6HPO [facility] Last Admin: 12/23/17 06:58 Dose: 125 mg Vital Signs Temperature 97.6 F 12/23/17 06:00 Pulse Rate 95 H 12/23/17 06:00 Respiratory Rate 20 12/23/17 06:00 Blood Pressure 116/81 12/23/17 06:00 O2 Sat by Pulse Oximetry (%) 99 12/22/17 21:00 GENERAL: Awake, alert, and oriented to person, place and year; in no acute distress. HEAD: Normal with no signs of trauma. temporal wasting noted EYES: Pupils equal, round and reactive to light, extraocular movements intact, sclera anicteric, conjunctiva clear. No lid lag. EARS, NOSE, THROAT: Ears normal, nares patent, oropharynx clear without exudates. Moist mucous membranes. NECK: Normal range of motion, supple without lymphadenopathy, JVD, or masses. LUNGS: Breath sounds equal, clear to auscultation bilaterally. No wheezes, and no crackles. No accessory muscle use. HEART: Regular rate and rhythm, normal S1 and S2 without murmur, rub or gallop. ABDOMEN: Soft, nontender, not distended, normoactive bowel sounds, no guarding, no rebound, no masses. No hepatomegaly or splenomegaly. MUSCULOSKELETAL: Normal range of motion at all joints. No bony deformities or tenderness. No CVA tenderness. + cachexic UPPER EXTREMITIES: 2+ pulses, warm, well-perfused. No cyanosis. No clubbing. No peripheral edema. LOWER EXTREMITIES: 2+ pulses, warm, well-perfused. No calf tenderness. No peripheral edema. left toe amputations, 2nd and 3rd NEUROLOGICAL: Cranial nerves II-XII intact. bradykinesia noted, minimal cogwheeling in upper extremities, no tremor noted, gait deferred PSYCHIATRIC: Cooperative. Good eye contact. Appropriate mood and affect. SKIN: Warm, dry, normal turgor, no rashes or lesions noted, normal capillary refill. CBCD WBC 8.5 K/mm3 (4.0-10.0) 12/23/17 06:20 RBC 3.19 M/mm3 (3.60-5.2) L 12/23/17 06:20 Hgb 9.7 GM/dL (10.7-15.3) L 12/23/17 06:20 Hct 29.7 % (32.4-45.2) L 12/23/17 06:20 MCV 93.3 fl (80-96) 12/23/17 06:20 MCHC 32.5 g/dl (32.0-36.0) 12/23/17 06:20 RDW 22.6 % (11.6-15.6) H 12/23/17 06:20 Plt Count 355 K/MM3 (134-434) 12/23/17 06:20 MPV 6.5 fl (7.5-11.1) L 12/23/17 06:20 CMP Sodium 135 mmol/L (136-145) L 12/23/17 06:20 Potassium 3.1 mmol/L (3.5-5.1) L 12/23/17 06:20 Chloride 102 mmol/L (98-107) 12/23/17 06:20 Carbon Dioxide 26 mmol/L (21-32) 12/23/17 06:20 Anion Gap 7 MMOL/L (8-16) L 12/23/17 06:20 BUN 5 mg/dL (7-18) L 12/23/17 06:20 Creatinine 0.5 mg/dL (0.55-1.3) L 12/23/17 06:20 Creat Clearance w eGFR > 60 (>60) 12/23/17 06:20 Random Glucose 80 mg/dL (74-106) 12/23/17 06:20 Calcium 7.2 mg/dL (8.5-10.1) L 12/23/17 06:20 Total Bilirubin 0.2 mg/dL (0.2-1) 12/18/17 08:00 AST 8 U/L (15-37) L 12/18/17 08:00 ALT 9 U/L (13-61) L 12/18/17 08:00 Alkaline Phosphatase 84 U/L (45-117) 12/18/17 08:00 Total Protein 6.8 g/dl (6.4-8.2) 12/18/17 08:00 Albumin 1.8 g/dl (3.4-5.0) L 12/18/17 08:00 Radiology Reports ABd/Pelvis CT with contrast reviewed, consistent with colitis ASSESSMENT/PLAN: 72 year old female with a past medical history significant for colitis with C diff presented to the ED with diarrhea. Per notes, the reported stool has been bloody since discharge from the hospital 2 weeks ago. WBC 9.8, Stool Occ +, H/H was 10.4/32.1. was consulted by nurse practitioner to evaluate Parkinson's disease. In the past patient seen as an outpatient by Dr. Medina but is not maintained follow-up. During my evaluation, she does not demonstrate significant cogwheel rigidity and I did not appreciate a tremor. Although she does have bradykinesia and does meet the diagnosis for Parkinson's disease it seems to me that this is stable. Follow-up recommendations from GI and continue supportive care. Monitor blood pressure, maintain normotensive range. No further imaging or neurologic workup indicated at this time. Remains stable on parkinson's medications at this time, has been stable.
[2017-12-23] MEDS ORDERED: cefTRIAXone SODIUM 1 GM VIAL ONE (10:03)
[2017-12-23] MEDS ORDERED: PT OWN MED DRAWER 7, Y5N ONE (10:03)
[2017-12-23] MEDS ORDERED: DEXTROSE 5%-WATER - 50 ML IVPB ONE (10:03)
[2017-12-23] MEDS: KCL 10 MEQ IVPB 10 MEQ/100 ML INFUS.BAG IVPB SCH ×3 (10:07→14:12)
[2017-12-23] MEDS: DIGOXIN 0.125 MG TABLET (FP) PO SCH (10:11)
[2017-12-23] MEDS: METHIMAZOLE 10 MG TABLET (FP) PO SCH (10:12)
[2017-12-23] MEDS: GABAPENTIN 100 MG CAPSULE (FP) PO SCH (10:12)
[2017-12-23] MEDS: LACTOBACILLUS ACIDOPHILUS 1 TABLET PO SCH (10:12)
[2017-12-23] MEDS: MULTIVITAMINS THER W-MINERALS COMBO TABLET (FP) PO SCH (10:12)
[2017-12-23] MEDS: MAGNESIUM CL 64 MG TABLET.SA PO SCH (10:13)
[2017-12-23] MEDS: CEFTRIAXONE 1 GM in DEXTROSE 5%-WATER - 50 ML IVPB SCH (10:13)
[2017-12-23] MEDS: AMANTADINE HCL 100 MG TABLET PO SCH (10:14)
[2017-12-23] MEDS: POTASSIUM CHLORIDE TABS 20 MEQ TABLET.ER (FP) PO SCH (10:14)
--- NOTE | 2017-12-23 10:18 | PN ---
Progress Note, Physician History of Present Illness: doing much better says she is doing well stools are improving - Current Medication List Current Medications: Active Medications Acetaminophen (Tylenol -) 650 mg PO Q6H PRN PRN Reason: FEVER Amantadine HCl (Symmetrel -) 100 mg PO DAILY [facility] Last Admin: 12/23/17 10:14 Dose: 100 mg Amino Acids (Prosource No Carb Liquid Pkt) 30 ml PO BID@0800,1730 [facility] Last Admin: 12/23/17 08:45 Dose: 30 ml Carbidopa/Levodopa (Sinemet 25/100 -) 1 each PO TID [facility] Last Admin: 12/23/17 06:58 Dose: 1 each Digoxin (Lanoxin -) 0.125 mg PO DAILY [facility] Last Admin: 12/23/17 10:11 Dose: 0.125 mg Diltiazem HCl (Cardizem Cd -) 180 mg PO DAILY [facility] Last Admin: 12/23/17 10:12 Dose: Not Given Gabapentin (Neurontin -) 100 mg PO BID [facility] Last Admin: 12/23/17 10:12 Dose: 100 mg Ceftriaxone Sodium 1 gm/ (Dextrose) 50 mls @ 100 mls/hr IVPB DAILY [facility]; Protocol Last Admin: 12/23/17 10:13 Dose: 100 mls/hr Potassium Chloride (Potassium Chloride 10 Meq Premix Ivpb -) 10 meq in 100 mls @ 100 mls/hr IVPB Q60M [facility] Stop: 12/23/17 12:29 Last Admin: 12/23/17 10:07 Dose: 100 mls/hr Lactobacillus Acidophilus (Bacid -) 1 tab PO DAILY [facility] Last Admin: 12/23/17 10:12 Dose: 1 tab Magnesium Chloride (Slow-Mag -) 128 mg PO DAILY [facility] Last Admin: 12/23/17 10:13 Dose: 128 mg Methimazole (Tapazole -) 20 mg PO BID [facility] Last Admin: 12/23/17 10:12 Dose: 20 mg Multivitamins/Minerals (Theragran-M) 1 each PO DAILY [facility] Last Admin: 12/23/17 10:12 Dose: 1 each Potassium Chloride (K-Dur -) 20 meq PO DAILY [facility] Last Admin: 12/23/17 10:14 Dose: 20 meq Potassium Phos/Sodium Phos (Phos-Nak Packet -) 1 packet PO TID [facility] Last Admin: 10/02/18 06:58 Dose: 1 packet Propranolol HCl (Inderal -) 60 mg PO TID [facility] Last Admin: 12/23/17 06:58 Dose: Not Given Vancomycin HCl (Vancomycin Oral Solution) 125 mg PO Q6HPO [facility] Last Admin: 12/23/17 06:58 Dose: 125 mg - Objective Vital Signs: Vital Signs Temperature 97.6 F 12/23/17 06:00 Pulse Rate 86 12/23/17 10:11 Respiratory Rate 20 12/23/17 06:00 Blood Pressure 116/81 12/23/17 06:00 O2 Sat by Pulse Oximetry (%) 99 12/22/17 21:00 Constitutional: Yes: No Distress, Calm Cardiovascular: Yes: S1, S2 Respiratory: Yes: Regular, CTA Bilaterally Gastrointestinal: Yes: Normal Bowel Sounds, Soft Musculoskeletal: Yes: WNL Extremities: Yes: WNL Neurological: Yes: Alert Psychiatric: Yes: Alert Labs: CBC, BMP 12/23/17 06:20 12/23/17 06:20 INR, PTT INR 1.12 (0.83-1.09) H 12/18/17 08:00 Assessment/Plan Assessment/Plan (1) Colitis Code(s): K52.9 - NONINFECTIVE GASTROENTERITIS AND COLITIS, UNSPECIFIED (2) BRBPR (bright red blood per rectum) Code(s): K62.5 - HEMORRHAGE OF ANUS AND RECTUM (3) UTI (urinary tract infection) Code(s): N39.0 - URINARY TRACT INFECTION, SITE NOT SPECIFIED Qualifiers: Urinary tract infection type: acute cystitis Hematuria presence: with hematuria Qualified Code(s): N30.01 - Acute cystitis with hematuria (4) Atrial fibrillation Code(s): I48.91 - UNSPECIFIED ATRIAL FIBRILLATION (3) Chronic diarrhea Code(s): K52.9 - NONINFECTIVE GASTROENTERITIS AND COLITIS, UNSPECIFIED (4) Occult blood in stools Code(s): R19.5 - OTHER FECAL ABNORMALITIES (5) Parkinson disease Code(s): G20 - PARKINSON'S DISEASE (6) Peripheral vascular disease Code(s): I73.9 - PERIPHERAL VASCULAR DISEASE, UNSPECIFIED (7) Severe malnutrition Code(s): E43 - UNSPECIFIED SEVERE PROTEIN-CALORIE MALNUTRITION (8) Dystonia Code(s): G24.9 - DYSTONIA, UNSPECIFIED (9) Hypophonia Code(s): R49.8 - OTHER VOICE AND RESONANCE DISORDERS (10) Hyperthyroidism Code(s): E05.90 - THYROTOXICOSIS, UNSP WITHOUT THYROTOXIC CRISIS OR STORM (11) HTN (hypertension) Code(s): I10 - ESSENTIAL (PRIMARY) HYPERTENSION Qualifiers: Hypertension type: essential hypertension Qualified Code(s): I10 - Essential (primary) hypertension (12) AAA (abdominal aortic aneurysm) Code(s): I71.4 - ABDOMINAL AORTIC ANEURYSM, WITHOUT RUPTURE Qualifiers: Presence of rupture: without rupture Qualified Code(s): I71.4 - Abdominal aortic aneurysm, without rupture (13) Hypokalemia Code(s): E87.6 - HYPOKALEMIA (14) Hypomagnesemia Code(s): E83.42 - HYPOMAGNESEMIA (15)cdiff plan continue current abx continue oral vanco rest as per the team patient improving
--- NOTE | 2017-12-23 11:06 | PN ---
Progress Note (short form) - Note Progress Note: s: no cp sob palps dizzy; abd pain improving o: Vital Signs Period Temp Pulse Resp BP Sys/Watkins Pulse Ox Last 24 Hr 97.5 F-97.6 F 86-95 17-20 91-116/55-81 99 Constitutional: Yes: Well Nourished, No Distress, Calm Eyes: Yes: Conjunctiva Clear Neck: Yes: Supple, Trachea Midline Respiratory: Yes: Regular, CTA Bilaterally Gastrointestinal: Yes: Normal Bowel Sounds, Soft Cardiovascular: Yes: Pulse Irregular JVD: No Heart Sounds: Yes: S1, S2 Edema: No Integumentary: Yes: no jaundice diaphoresis Neurological: Yes: Aao3 Current Medications Acetaminophen (Tylenol -) 650 mg PO Q6H PRN PRN Reason: FEVER Amantadine HCl (Symmetrel -) 100 mg PO DAILY [facility] Last Admin: 12/23/17 10:14 Dose: 100 mg Amino Acids (Prosource No Carb Liquid Pkt) 30 ml PO BID@0800,1730 [facility] Last Admin: 12/23/17 08:45 Dose: 30 ml Carbidopa/Levodopa (Sinemet 25/100 -) 1 each PO TID [facility] Last Admin: 12/23/17 06:58 Dose: 1 each Digoxin (Lanoxin -) 0.125 mg PO DAILY [facility] Last Admin: 12/23/17 10:11 Dose: 0.125 mg Diltiazem HCl (Cardizem Cd -) 180 mg PO DAILY [facility] Last Admin: 12/23/17 10:12 Dose: Not Given Gabapentin (Neurontin -) 100 mg PO BID [facility] Last Admin: 12/23/17 10:12 Dose: 100 mg Ceftriaxone Sodium 1 gm/ (Dextrose) 50 mls @ 100 mls/hr IVPB DAILY [facility]; Protocol Last Admin: 12/23/17 10:13 Dose: 100 mls/hr Potassium Chloride (Potassium Chloride 10 Meq Premix Ivpb -) 10 meq in 100 mls @ 100 mls/hr IVPB Q60M [facility] Stop: 12/23/17 12:29 Last Admin: 12/23/17 10:07 Dose: 100 mls/hr Lactobacillus Acidophilus (Bacid -) 1 tab PO DAILY [facility] Last Admin: 12/23/17 10:12 Dose: 1 tab Magnesium Chloride (Slow-Mag -) 128 mg PO DAILY [facility] Last Admin: 12/23/17 10:13 Dose: 128 mg Methimazole (Tapazole -) 20 mg PO BID [facility] Last Admin: 12/23/17 10:12 Dose: 20 mg Multivitamins/Minerals (Theragran-M) 1 each PO DAILY [facility] Last Admin: 12/23/17 10:12 Dose: 1 each Potassium Chloride (K-Dur -) 20 meq PO DAILY [facility] Last Admin: 12/23/17 10:14 Dose: 20 meq Potassium Phos/Sodium Phos (Phos-Nak Packet -) 1 packet PO TID [facility] Last Admin: 12/23/17 06:58 Dose: 1 packet Propranolol HCl (Inderal -) 60 mg PO TID [facility] Last Admin: 12/23/17 06:58 Dose: Not Given Vancomycin HCl (Vancomycin Oral Solution) 125 mg PO Q6HPO [facility] Last Admin: 12/23/17 06:58 Dose: 125 mg Assessment/Plan 72F smoker with h/o of htn, frequent falls, parkinsons/dystonia, pvd 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 colitis, h/o C diff - CT abd shows colitis - GI following - holding clopidogrel in setting of bloody stool, restart when cleared per GI afib - on propranolol 60 mg TID, diltiazem 180 mg, digoxin with rate controlled. while septic here occasionally have needed to hold bb/ccb, cont dig, rate ok so far, would resume meds on discharge - not on AC due to risk of falls, was on clopidogrel monotherapy (asa allergy), holding in setting of GIB Hyperthyroidism - on tapazole, propranolol - manage per primary team htn - controlled/low - cont current meds for rate control as bp permits pvd/AAA/+ tobacco - plavix held in setting of bloody stool. not on statin, will defer to outpatient md's. - smoking cessation
[2017-12-23 11:18] LABS: ANISOCYTOSIS 1+; MACROCYTOSIS 1+; PLATELET ESTIMATE NORMAL
[2017-12-23] MEDS ORDERED: POTASSIUM CHLORIDE ORAL LIQUID 20 MEQ/15 ML PO ONE (12:01)
--- NOTE | 2017-12-23 13:44 | DS ---
Physical Examination Vital Signs: Vital Signs Temperature 98.0 F 12/23/17 11:00 Pulse Rate 86 12/23/17 11:00 Respiratory Rate 20 12/23/17 11:00 Blood Pressure 94/54 L 12/23/17 11:00 O2 Sat by Pulse Oximetry (%) 97 12/23/17 09:00 Constitutional: Yes: No Distress, Thin Cardiovascular: Yes: Pulse Irregular Respiratory: Yes: WNL, Regular, CTA Bilaterally. No: Rales, Rhonchi, SOB, Tachypnea, Wheezes Gastrointestinal: Yes: WNL, Normal Bowel Sounds, Soft. No: Distention, Tenderness Renal/: Yes: Incontinence Edema: No Neurological: Yes: WNL, Alert, Oriented Psychiatric: Yes: WNL, Alert, Oriented Labs: CBC, BMP 12/23/17 06:20 12/23/17 06:20 Discharge Summary Reason For Visit: CLOSTRIDIUM DIFFICILE DIARRHEA, BRIGHT RED BLOOD Current Active Problems Afib (Acute) BRBPR (bright red blood per rectum) (Acute) Clostridium difficile colitis (Acute) Colitis (Acute) Failure to thrive (Acute) UTI (urinary tract infection) (Acute) Hospital Course: 72 year old female pmh of cdiff colitis admitted for evaluation of diarrhea w/ rectal bleeding. CT suggestive of acute colitis. Cdiff antigen positive. Pt started on po vancomycin. GI/ID consult appreciated. Hg/hct stable. Pt tolerating regular diet. BMs more formed. wbcs wnl. hypokalemia stable, continue scheduled po potassium, recheck bmp in 3 days. Pt also evaluated by Neurology, Cardiology, no further intervention. Otherwise, pt in no acute distress. f/u as directed. 32 minutes spent in discharge planning Condition: Improved - Instructions Diet, Activity, Other Instructions: Continue Vancocin 125mg PO Q 6 hrs for 9 more days then will likely need taper ( was treated previously). Taper could look like: 125mg PO q 6 hrs for 14 days then 125mg PO q 8 hrs for 1 week then 125mg PO BID for 1 week then 125mg PO daily for 1 week then 125mg PO QOD for 1 week then D/C Resume plavix after 1 week UTI- keflex bid x 5 days check BMP in 3 days Referrals: Manohar Ramirez MD [Primary Care Provider] - Aris Sharpe MD [Staff Physician] - Anusha Mi MD [Staff Physician] - 2 Weeks [facility]position: [facility] - Home Medications Comprehensive Discharge Medication List: Ambulatory Orders Acetaminophen 650 mg PO QID 11/25/17 Acetaminophen W/ Codeine #3 [Tylenol # 3 -] 1 tab PO TID 11/25/17 Amantadine HCl [Amantadine] 100 mg PO DAILY 11/25/17 Carbidopa/Levodopa [Rytary ER 36.25 mg-145 mg Cap] 1 each PO BID 11/25/17 Clopidogrel Bisulfate [Plavix] 75 mg PO DAILY 11/25/17 Diltiazem Cd [Cardizem Cd -] 180 mg PO DAILY 11/25/17 Lactobacillus Acidophilus [Acidophilus] 1 each PO DAILY 11/25/17 Multivit-Min/Iron Fum/Folic AC [Ytfuu-Msdxbrl-Uwythjbo Tablet] 1 each PO DAILY 11/25/17 Potassium Chloride [K-Dur -] 20 meq PO DAILY 11/25/17 Propranolol HCl 60 mg PO TID 11/25/17 Sodium,Potassium Phosphates [Phos-Nak Packet] 1 each PO TID 11/25/17 Amino Acids/Protein Hydrolys [Prosource No Carb Liquid Pkt] 30 ml PO BID@0800, 1730 packet 12/01/17 Magnesium Chloride [Slow-Mag -] 128 mg PO DAILY tablet.sa 12/01/17 Methimazole [Tapazole -] 20 mg PO Q12H tablet 12/01/17 Digoxin [Lanoxin -] 0.125 mg PO DAILY 12/18/17 Gabapentin [Neurontin -] 100 mg PO Q12H 12/18/17 Cephalexin [Keflex] 500 mg PO BID 5 Days capsule 12/23/17 Vancomycin Oral Solution 125 mg PO Q6HPO ml 12/23/17
[2017-12-23 15:09] VITALS: BP 107/58; PULSE 91; TEMP 97.9
== END 2017-12-23 15:37 | DRG 371 ==
LOC: JER 16:34 → UNDOADMOB 21:35 → INTOOBSV 21:35 → JERBED 21:35 → J5S 23:23 → JERBED 12-19 09:52 → J5S 12-19 09:52 → OBSVTOIN 12-19 13:05
PROVIDERS: ADMIT Internal Medicine; ATTEND Internal Medicine
DX: A04.71 Enterocolitis due to Clostridium difficile, recurrent (principal); E43 Unspecified severe protein-calorie malnutrition; K62.5 Hemorrhage of anus and rectum; N39.0 Urinary tract infection, site not specified; E46 Unspecified protein-calorie malnutrition; Z68.1 Body mass index [BMI] 19.9 or less, adult; I73.9 Peripheral vascular disease, unspecified; I48.91 Unspecified atrial fibrillation; E78.00 Pure hypercholesterolemia, unspecified; F41.9 Anxiety disorder, unspecified; G20 Parkinson's disease; E05.90 Thyrotoxicosis, unspecified without thyrotoxic crisis or storm; G24.9 Dystonia, unspecified; B96.1 Klebsiella pneumoniae [K. pneumoniae] as the cause of diseases classified elsewhere; K52.9 Noninfective gastroenteritis and colitis, unspecified; R49.8 Other voice and resonance disorders; I10 Essential (primary) hypertension; I71.4 Abdominal aortic aneurysm, without rupture; E87.6 Hypokalemia; E83.42 Hypomagnesemia; R62.7 Adult failure to thrive; Z87.891 Personal history of nicotine dependence
CPT/HCPCS: 36415; 74177-TC; 80048; 80053; 81003; 81015; 82272; 83735; 84100; 85025; 85610; 86850; 86900; 86901; 87040; 87045; 87046; 87086; 87186; 87324; 87449; 87493; 93005; 93010; 97116-GP; 97161-GP; 99284-25; G0378; J7030

== ENCOUNTER 2018-01-26 01:52 | Emergency (ER) | payer OTHER ==
[2018-01-26] MEDS ORDERED: LIDOCAINE HCL 1%, 10 MG/ML (50 mL VIAL) SQ ONE (02:03)
[2018-01-26] MEDS ORDERED: TETANUS AND DIPHTHERIA TOXOID 0.5 ML DISP.SYRIN IM ONE (02:04)
[2018-01-26] MEDS ORDERED: LIDOCAINE HCL 1%, 10 MG/ML (20ML VIAL) ONE (02:23)
[2018-01-26 02:33] VITALS: TEMP 97.9; BMI 18.8
[2018-01-26] MEDS ORDERED: ACETAMINOPHEN 325 MG TABLET (FP) PO ONE (03:57)
--- NOTE | 2018-01-26 04:20 | PDOC ---
History of Present Illness - General Chief Complaint: Laceration Stated Complaint: LACEREATION Time Seen by Provider: 01/26/18 02:14 - History of Present Illness Initial Comments: 01/26/18 05:23 trip and fall sustained head trauma no complaints: "Barbara never felt better" denies lowe, cp ? last tetanus fhx: non conributory ROS: reviewed and otherwise negative Timing/Duration: reports: just prior to arrival Severity: Yes: mild Location: reports: scalp Associated Symptoms: reports: denies symptoms. denies: fever, rash Past History - Past Medical History Allergies/Adverse Reactions: Allergies Allergy/AdvReac Type Severity Reaction Status Date / Time aspirin Allergy Verified 12/18/17 17:05 Penicillins Allergy Verified 12/18/17 17:05 Home Medications: Ambulatory Orders Acetaminophen 650 mg PO QID 11/25/17 Acetaminophen W/ Codeine #3 [Tylenol # 3 -] 1 tab PO TID 11/25/17 Amantadine HCl [Amantadine] 100 mg PO DAILY 11/25/17 Carbidopa/Levodopa [Rytary ER 36.25 mg-145 mg Cap] 1 each PO BID 11/25/17 Clopidogrel Bisulfate [Plavix] 75 mg PO DAILY 11/25/17 Diltiazem Cd [Cardizem Cd -] 180 mg PO DAILY 11/25/17 Lactobacillus Acidophilus [Acidophilus] 1 each PO DAILY 11/25/17 Multivit-Min/Iron Fum/Folic AC [Ouafv-Usidpay-Bdzxbzxm Tablet] 1 each PO DAILY 11/25/17 Potassium Chloride [K-Dur -] 20 meq PO DAILY 11/25/17 Propranolol HCl 60 mg PO TID 11/25/17 Sodium,Potassium Phosphates [Phos-Nak Packet] 1 each PO TID 11/25/17 Amino Acids/Protein Hydrolys [Prosource No Carb Liquid Pkt] 30 ml PO BID@0800, 1730 packet 12/01/17 Magnesium Chloride [Slow-Mag -] 128 mg PO DAILY tablet.sa 12/01/17 Methimazole [Tapazole -] 20 mg PO Q12H tablet 12/01/17 Digoxin [Lanoxin -] 0.125 mg PO DAILY 12/18/17 Gabapentin [Neurontin -] 100 mg PO Q12H 12/18/17 Cephalexin [Keflex] 500 mg PO BID 5 Days capsule 12/23/17 Vancomycin Oral Solution 125 mg PO Q6HPO ml 12/23/17 Anemia: Yes Asthma: No Cancer: No Cardiac Disorders: Yes (afib, AAA) CVA: No COPD: No CHF: No DVT: No Dementia: No Diabetes: No GI Disorders: No Disorders: No HTN: Yes Hypercholesterolemia: Yes Liver Disease: No Seizures: No Thyroid Disease: No - Surgical History Abdominal Surgery: No Appendectomy: No Cardiac Surgery: No Cholecystectomy: No Lung Surgery: No Neurologic Surgery: No Orthopedic Surgery: No - Immunization History Immunization Up to Date: Yes - Suicide/Smoking/Psychosocial Hx Smoking History: Never smoked Have you smoked in the past 12 months: No Number of Cigarettes Smoked Daily: 5 If you are a former smoker, when did you quit?: august 2016 Information on smoking cessation initiated: No 'Breaking Loose' booklet given: 06/28/17 Hx Alcohol Use: No Drug/Substance Use Hx: No Substance Use Type: None Hx Substance Use Treatment: No *Physical Exam - Vital Signs Last Vital Signs Temp Pulse Resp BP Pulse Ox 97.9 F 90 18 104/61 99 01/26/18 01:58 01/26/18 01:58 01/26/18 01:58 01/26/18 01:58 01/26/18 01:58 - Physical Exam General Appearance: No: Mild Distress, Moderate Distress, Severe Distress HEENT: positive: EOMI, Normal Voice Neck: negative: Tender Respiratory/Chest: positive: Lungs Clear. negative: Chest Tender Cardiovascular: positive: Regular Rhythm Gastrointestinal/Abdominal: negative: Tender Lymphatic: negative: Adenopathy Musculoskeletal: positive: Normal Inspection. negative: Vertebral Tenderness Extremity: positive: Normal Capillary Refill. negative: Tender Integumentary: positive: Other (3 cm vertical lac L forehead) Neurologic: positive: Fully Oriented, Motor Strength 5/5 Procedures - Laceration/Wound Repair Frontal Wound Length: 2.6 to 5.0 cm Wound Explored: no foreign body present Wound's Depth, Shape: linear Anesthesia: 1% Lidocaine Suture Size/Type: 5:0, nylon Number of Sutures: 3 ED Treatment Course - RADIOLOGY Radiology Studies Ordered: Category Date Time Status HEAD CT WITHOUT CONTRAST [CT] Stat CT Scan 01/26/18 02:02 Taken - Medications Given in the ED: ED Medications Discontinued Medications Generic Name Dose Route Start Last Admin Trade Name Freq PRN Reason Stop Dose Admin Lidocaine HCl 20 ml 01/26/18 02:03 01/26/18 02:26 Xylocaine 1% SQ 01/26/18 02:04 20 ml ONCE ONE Administration Tetanus/Diphtheria Toxoids Adsorbed 0.5 ml 01/26/18 02:04 01/26/18 02:26 Decavac IM 01/26/18 02:05 0.5 ml .ONCE ONE Administration Medical Decision Making - Medical Decision Making 01/26/18 05:29 fall with head trauma sustained laceration tetanus lac repaired head CT reviewed *DC/Admit/Observation/Transfer Diagnosis at time of Disposition: Laceration Head trauma Qualifiers: Encounter type: initial encounter Qualified Code(s): S09.90XA - Unspecified injury of head, initial encounter - Discharge Dispostion Disposition: HOME - Referrals Referrals: Manohar Ramirez MD [Primary Care Provider] - - Patient Instructions Printed Discharge Instructions: DI for Laceration Repair Additional Instructions: Stitches out--01/31 - Post Discharge Activity
[2018-01-26] MEDS ORDERED: ACETAMINOPHEN 325 MG TABLET (FP) ONE (05:21)
[2018-01-26 07:41] VITALS: BP 94/58; PULSE 104
== END 2018-01-26 07:41 ==
LOC: JER 01:52
PROC: 0HQ0XZZ Repair Scalp Skin, External Approach (ICD-10-PCS; principal; 2018-01-26)
PROC: 3E0234Z Introduction of Serum, Toxoid and Vaccine into Muscle, Percutaneous Approach (ICD-10-PCS; 2018-01-26)
DX: S01.01XA Laceration without foreign body of scalp, initial encounter (principal); W01.0XXA Fall on same level from slipping, tripping and stumbling without subsequent striking against object, initial encounter; Y93.89 Activity, other specified; Y92.128 Other place in nursing home as the place of occurrence of the external cause; Y99.8 Other external cause status; D64.9 Anemia, unspecified; I10 Essential (primary) hypertension; E78.00 Pure hypercholesterolemia, unspecified; I48.91 Unspecified atrial fibrillation; Z79.01 Long term (current) use of anticoagulants
CPT/HCPCS: 12002; 70450-TC; 90471; 99282-25

== ENCOUNTER 2018-02-08 14:08 | Inpatient (IN) | payer OTHER ==
--- NOTE | 2018-02-08 14:24 | PDOC ---
History of Present Illness - General Chief Complaint: Diarrhea Stated Complaint: DIARRHEA Time Seen by Provider: 02/08/18 14:24 Past History - Past Medical History Allergies/Adverse Reactions: Allergies Allergy/AdvReac Type Severity Reaction Status Date / Time aspirin Allergy Verified 02/08/18 14:19 Penicillins Allergy Verified 02/08/18 14:19 Home Medications: Ambulatory Orders Acetaminophen 650 mg PO QID 11/25/17 Acetaminophen W/ Codeine #3 [Tylenol # 3 -] 1 tab PO TID 11/25/17 Amantadine HCl [Amantadine] 100 mg PO DAILY 11/25/17 Carbidopa/Levodopa [Rytary ER 36.25 mg-145 mg Cap] 1 each PO BID 11/25/17 Clopidogrel Bisulfate [Plavix] 75 mg PO DAILY 11/25/17 Diltiazem Cd [Cardizem Cd -] 180 mg PO DAILY 11/25/17 Lactobacillus Acidophilus [Acidophilus] 1 each PO DAILY 11/25/17 Multivit-Min/Iron Fum/Folic AC [Ppgnf-Bieawcy-Knpmbkyb Tablet] 1 each PO DAILY 11/25/17 Potassium Chloride [K-Dur -] 20 meq PO DAILY 11/25/17 Propranolol HCl 60 mg PO TID 11/25/17 Sodium,Potassium Phosphates [Phos-Nak Packet] 1 each PO TID 11/25/17 Amino Acids/Protein Hydrolys [Prosource No Carb Liquid Pkt] 30 ml PO BID@0800, 1730 packet 12/01/17 Magnesium Chloride [Slow-Mag -] 128 mg PO DAILY tablet.sa 12/01/17 Methimazole [Tapazole -] 20 mg PO Q12H tablet 12/01/17 Digoxin [Lanoxin -] 0.125 mg PO DAILY 12/18/17 Gabapentin [Neurontin -] 100 mg PO Q12H 12/18/17 Cephalexin [Keflex] 500 mg PO BID 5 Days capsule 12/23/17 Vancomycin Oral Solution 125 mg PO Q6HPO ml 12/23/17 Anemia: Yes Asthma: No Cancer: No Cardiac Disorders: Yes (afib, AAA) CVA: No COPD: No CHF: No DVT: No Dementia: No Diabetes: No GI Disorders: No Disorders: No HTN: Yes Hypercholesterolemia: Yes Liver Disease: No Seizures: No Thyroid Disease: No - Surgical History Abdominal Surgery: No Appendectomy: No Cardiac Surgery: No Cholecystectomy: No Lung Surgery: No Neurologic Surgery: No Orthopedic Surgery: No - Immunization History Immunization Up to Date: Yes - Suicide/Smoking/Psychosocial Hx Smoking History: Never smoked Have you smoked in the past 12 months: No Number of Cigarettes Smoked Daily: 5 If you are a former smoker, when did you quit?: august 2016 Information on smoking cessation initiated: No 'Breaking Loose' booklet given: 06/28/17 Hx Alcohol Use: No Drug/Substance Use Hx: No Substance Use Type: None Hx Substance Use Treatment: No *Physical Exam - Vital Signs Last Vital Signs Temp Pulse Resp BP Pulse Ox 97.6 F 64 18 102/51 L 99 02/08/18 14:16 02/08/18 14:16 02/08/18 14:16 02/08/18 14:16 02/08/18 14:16 *DC/Admit/Observation/Transfer - Referrals Referrals: Manohar Ramirez MD [Primary Care Provider] - - Patient Instructions - Post Discharge Activity
--- NOTE | 2018-02-08 14:28 | PDOC ---
History of Present Illness - General Chief Complaint: Diarrhea Stated Complaint: DIARRHEA Time Seen by Provider: 02/08/18 14:24 - History of Present Illness Initial Comments: 02/08/18 15:25 The patient is a 72 year old female with a significant past medical history of Parkinsons disease, C Diff, A-fib on (cardizem, propranolol, and plavix) and AAA, coming to the ED for black tarry diarrhea and generalized weakness. Recently admitted here (12/19) for upper GI bleed and diarrhea, treated with PO vanco and sent to [facility] for rehab. According to , diarrhea never stopped but dark tarry stools resolved and the patient was able to get out of bed on her own. Recently discharged 5 days ago,. Now say he needs to carry her out of bed and the black tarry stool have resumed. Denies fever, chills, abdominal pain sob or chest pain. Past History - Past Medical History Allergies/Adverse Reactions: Allergies Allergy/AdvReac Type Severity Reaction Status Date / Time aspirin Allergy Verified 02/08/18 14:19 Penicillins Allergy Verified 02/08/18 14:19 Home Medications: Ambulatory Orders Acetaminophen 650 mg PO QID 11/25/17 Acetaminophen W/ Codeine #3 [Tylenol # 3 -] 1 tab PO TID 11/25/17 Amantadine HCl [Amantadine] 100 mg PO DAILY 11/25/17 Carbidopa/Levodopa [Rytary ER 36.25 mg-145 mg Cap] 1 each PO BID 11/25/17 Clopidogrel Bisulfate [Plavix] 75 mg PO DAILY 11/25/17 Diltiazem Cd [Cardizem Cd -] 180 mg PO DAILY 11/25/17 Lactobacillus Acidophilus [Acidophilus] 1 each PO DAILY 11/25/17 Multivit-Min/Iron Fum/Folic AC [Cdtzf-Alpfcti-Hroxjlot Tablet] 1 each PO DAILY 11/25/17 Potassium Chloride [K-Dur -] 20 meq PO DAILY 11/25/17 Propranolol HCl 60 mg PO TID 11/25/17 Sodium,Potassium Phosphates [Phos-Nak Packet] 1 each PO TID 11/25/17 Amino Acids/Protein Hydrolys [Prosource No Carb Liquid Pkt] 30 ml PO BID@0800, 1730 packet 12/01/17 Magnesium Chloride [Slow-Mag -] 128 mg PO DAILY tablet.sa 12/01/17 Methimazole [Tapazole -] 20 mg PO Q12H tablet 12/01/17 Digoxin [Lanoxin -] 0.125 mg PO DAILY 12/18/17 Gabapentin [Neurontin -] 100 mg PO Q12H 12/18/17 Ferrous Sulfate 325 mg PO DAILY 02/08/18 Potassium Chloride 20 meq PO DAILY 02/08/18 Anemia: Yes Asthma: No Cancer: No Cardiac Disorders: Yes (afib, AAA) CVA: No COPD: No CHF: No DVT: No Dementia: No Diabetes: No GI Disorders: No Disorders: No HTN: Yes Hypercholesterolemia: Yes Liver Disease: No Seizures: No Thyroid Disease: No - Surgical History Abdominal Surgery: No Appendectomy: No Cardiac Surgery: No Cholecystectomy: No Lung Surgery: No Neurologic Surgery: No Orthopedic Surgery: No - Immunization History Immunization Up to Date: Yes - Suicide/Smoking/Psychosocial Hx Smoking History: Never smoked Have you smoked in the past 12 months: No Number of Cigarettes Smoked Daily: 5 If you are a former smoker, when did you quit?: august 2016 Information on smoking cessation initiated: No 'Breaking Loose' booklet given: 06/28/17 Hx Alcohol Use: No Drug/Substance Use Hx: No Substance Use Type: None Hx Substance Use Treatment: No Review of Systems - Review of Systems Able to Perform ROS?: Yes Is the patient limited Honduran proficient: No Constitutional: Yes: Weakness HEENTM: No: Symptoms Reported Respiratory: No: Symptoms reported Cardiac (ROS): No: Symptoms Reported ABD/GI: Yes: See HPI : No: Symptoms Reported Musculoskeletal: No: Symptoms Reported Integumentary: No: Symptoms Reported Neurological: No: Symptoms reported All Other Systems: Reviewed and Negative *Physical Exam - Vital Signs Last Vital Signs Temp Pulse Resp BP Pulse Ox 97.6 F 64 18 102/51 L 99 02/08/18 14:16 02/08/18 14:16 02/08/18 14:16 02/08/18 14:16 02/08/18 14:16 - Physical Exam General Appearance: Yes: Apparent Distress, Moderate Distress, Cachetic HEENT: positive: EOMI, GRISEL, Normal ENT Inspection Respiratory/Chest: positive: Lungs Clear, Normal Breath Sounds. negative: Chest Tender, Respiratory Distress Cardiovascular: positive: Regular Rhythm, Regular Rate, S1, S2 Gastrointestinal/Abdominal: positive: Normal Bowel Sounds, Flat, Soft. negative : Tender Rectal Exam: positive: other (Stool actually not tarry, just greenish and fibrous) Musculoskeletal: positive: Normal Inspection. negative: CVA Tenderness Extremity: positive: Delayed Capillary Refill Integumentary: positive: Warm, Pale Neurologic: positive: Fully Oriented, Normal Response, Depressed Affect ED Treatment Course - LABORATORY CBC & Chemistry Diagram: 02/08/18 15:30 02/08/18 15:30 Medical Decision Making - Medical Decision Making 02/08/18 17:09 72F with a significant past medical history of Parkinsons disease, C Diff, A- fib presenting with chronic diarrhea, weakness. C-diff vs gastroenteritis vs UTI Will get basic labs and rehydrate, test for c diff cultures. 02/08/18 19:33 Colitis present on CTA abdomen. Will Admit on abx and fluids. *DC/Admit/Observation/Transfer Diagnosis at time of Disposition: Colitis - Discharge Dispostion Decision to Admit order: Yes - Referrals Referrals: Manohar Ramirez MD [Primary Care Provider] - - Patient Instructions - Post Discharge Activity
[2018-02-08] MEDS ORDERED: SODIUM CHLORIDE 1,000 ML IV STA (14:51)
[2018-02-08] MEDS ORDERED: LOPERAMIDE HCL 2 MG CAPSULE PO ONE (14:53)
[2018-02-08 15:46] LABS: URINE APPEARANCE CLEAR; URINE BILIRUBIN NEGATIVE (<2.0 mg/dL); URINE COLOR DKYELLOW; URINE GLUCOSE (UA) NEGATIVE (NEGATIVE); URINE KETONE TRACE (NEGATIVE); URINE LEUK ESTERASE TRACE (NEGATIVE); URINE NITRITE NEGATIVE (NEGATIVE); URINE PROTEIN NEGATIVE (NEGATIVE); URINE UROBILINOGEN NEGATIVE mg/dL (0.2-1.0)
[2018-02-08 15:47] LABS: BASO % 0.4 % (0-2.0); EOS % 1.2 % (0-4.5); HEMATOCRIT 29.8 % (32.4-45.2); HEMOGLOBIN 9.4 GM/dL (10.7-15.3); LYMPH % 26.4 % (8-40); MCH 32.8 pg (25.7-33.7); MCHC 31.5 g/dl (32.0-36.0); MEAN CELL VOLUME 104.3 fl (80-96); MEAN PLT VOLUME 6.8 fl (7.5-11.1); MONO % 6.3 % (3.8-10.2); NEUT % 65.7 % (42.8-82.8); PLATELET COUNT 494 K/MM3 (134-434); RBC 2.86 M/mm3 (3.60-5.2); RDW 17.5 % (11.6-15.6); WHITE BLOOD COUNT 8.7 K/mm3 (4.0-10.0)
[2018-02-08 15:52] LABS: INR 1.13 (0.83-1.09); PROTHROMBIN TIME (PATIENT) 13.4 SEC (9.7-13.0)
[2018-02-08 15:54] LABS: ACTIVATED PTT 26.7 SECONDS (25.2-36.5)
[2018-02-08 15:55] LABS: EPI CELLS RARE /HPF (FEW); URINE BACTERIA RARE /hpf (NONE SEEN); URINE MUCUS RARE
[2018-02-08 16:15] LABS: ALK PHOS 74 U/L (45-117); ANION GAP 7 MMOL/L (8-16); BILIRUBIN,TOTAL 0.2 mg/dL (0.2-1); BLOOD UREA NITROGEN 11 mg/dL (7-18); CALCIUM 8.1 mg/dL (8.5-10.1); CHLORIDE 103 mmol/L (98-107); CO2 27 mmol/L (21-32); CREATININE 0.8 mg/dL (0.55-1.3); GLUCOSE,RANDOM 80 mg/dL (74-106); POTASSIUM 4.6 mmol/L (3.5-5.1); SGOT/AST 15 U/L (15-37); SGPT/ALT 11 U/L (13-61); SODIUM 137 mmol/L (136-145); TOT PROT 7.3 g/dl (6.4-8.2)
--- NOTE | 2018-02-08 16:35 | PDOC ---
Attending Attestation - Resident Resident Name: Sam Castro - ED Attending Attestation I have performed the following: I have examined & evaluated the patient, The case was reviewed & discussed with the resident, I agree w/resident's findings & plan, Exceptions are as noted - HPI HPI: 02/08/18 17:56 The patient is a 72 year old female, with a significant PMH of c diff colitis, afib, AAA, Parkinsons disease recently discharged from [facility] 6 days ago who presents to the emergency department with dark stool and generalized weakness for the past five days. Patient states she has been experiencing diarrhea since September 2017 which never resolved. Patient was not longer experiencing dark stool while at [facility] rehab, but noticed it again after her discharge from rehab five days ago. Patient also noticed she is more weak than her baseline, as she used to ambulate on her own, but now her must carry her out of bed for the last 2 days. Patient denies any associated abdominal pain. Denies fevers, chills, focal weakness/numbness. The patient denies abdominal pain, chest pain, shortness of breath, headache and dizziness. Denies fever, chills, nausea, vomit, and constipation. Denies dysuria, frequency, urgency and hematuria. Allergies: NKA Past surgical history: None reported. Social history: No reported alcohol, drug, or cigarette use. PCP: Dr. Ramirez - Physicial Exam PE: 02/08/18 17:59 GENERAL: Awake, alert, and fully oriented, in no acute distress. Very thin, cachectic. Pale EYES: Sclera anicteric, conjunctiva clear ENT: Oropharynx clear without exudates. Moist mucosa LUNGS: Breath sounds equal, clear to auscultation bilaterally. No wheezes, and no crackles HEART: Regular rate and rhythm, normal S1 and S2, no murmurs, rubs or gallops ABDOMEN: Soft, nontender, normoactive bowel sounds. No guarding, no rebound. No masses EXTREMITIES: Normal range of motion, no edema. No cords, erythema, or tenderness NEUROLOGICAL: Very soft spoken but normal speech, cranial nerves intact, negative pronator drift, 5/5 strength in all 4 extremities, normal sensation to light touch in all 4 extremities, normal cerebellar exam, normal gait, normal reflexes and tone SKIN: Warm, Dry, normal turgor, no rashes or lesions noted. - Medical Decision Making 02/08/18 18:29 72yo F with MMP presents to the ED with generalized weakness and dark stools for 5 days. She was DC from [facility] [place] 6 days ago. Pt unable to ambulate and her has been carrying her around the home. Stool guaic negative, but patient appears pale. Has hx of GIB. Pt also has UTI. Given PCN allergy, will cover with levaquin based on previous sensitivities. Plan to admit for UTI, GIB , weakness, pt likely to need NH placement. <Nassef,Yomna - Last Filed: 02/08/18 18:33> - Medical Decision Making 02/08/18 19:44 Received signout on patientL Patient Name: YVON PEREZ THIS IS A PRELIMINARY REPORT FROM [facility]. DATE OF SERVICE: 2018-02-08 16:49:56 IMAGES: [id number] EXAM: CTA CHEST WITH IV CONTRAST AND CTA ABDOMEN AND PELVIS WITH IV CONTRAST HISTORY: Rule out AAA rupture TECHNIQUE: Contiguous axial images were obtained utilizing a multislice, multidetector CT scanner. Post-processed reformations were also submitted for review. One or more of the following dose reduction techniques were used: automated exposure control, adjustment of the mA and/or kV according to patient size, use of iterative reconstructive technique. Additional maximum intensity projection (MIP) 3D post contrast images of the chest, abdomen, and pelvis were reviewed. COMPARISON: CT of the abdomen and pelvis performed on. October 19, 2017. CT chest performed on October 19, 2017 FINDINGS: Chest: Lungs/Airways/Pleura: Mild pulmonary venous congestion with peripheral fibrosis versus subsegmental atelectasis/scarring predominantly involving the lower lobes dependently. Interval resolution of previously seen opacity in the lingula. The tracheobronchial tree is grossly patent. There is no airspace consolidation, pleural effusion or pneumothorax. CARDIOVASCULAR: Borderline cardiomegaly. There is no significant pericardial effusion. Atherosclerotic calcification of the aorta without aneurysm. Mediastinum and Sandra: There is no clinically significant axillary, mediastinal or hilar lymphadenopathy. Chest Wall and Lower Neck: Stable multiple nodules in the thyroid gland Abdomen: Liver:: Mild hepatic steatosis. Bile Ducts: Stable mildly dilated common bile duct measuring up to 9 mm. Gallbladder:: Within normal limits. Pancreas:: Within normal limits. Spleen:: Within normal limits. Adrenals: Within normal limits. Kidneys: No evidence of hydronephrosis or nephrolithiasis. Stomach:: Small sliding hiatal hernia. Bowel:: No evidence of small bowel obstruction or mass. Normal appendix is identified. Diffuse thickening of the colon concerning for inflammatory/infectious colitis including C. difficile colitis Pelvis: Reproductive Organs: Within normal limits. Bladde: Within normal limits. Vessels: Aorta: Grossly stable infrarenal abdominal aortic aneurysmal measuring up to 4.7 x 4.6 cm with extensive intramural plaque, but no evidence of dissection or rupture. Diffuse atherosclerotic disease. Retroperitoneum: Within normal limits. Bones: : No suspicious osseous lesions. Stable thoracolumbar spondylosis. IMPRESSION: 1. Grossly stable infrarenal abdominal aortic aneurysmal measuring up to 4.7 x 4.6 cm with extensive intramural plaque, but no evidence of dissection or rupture. 2. Diffuse thickening of the colon concerning for inflammatory/infectious colitis including C. difficile colitis <Chiquita Garcia - Last Filed: 02/08/18 19:47> Heart Score/ECG Review #1 02/08/18 18:32 Twelve-lead EKG was performed and reviewed by me. Atrial fibrillation, rate 57. Normal axis. No ST elevations. <Magi Hahn - Last Filed: 02/08/18 18:33>
--- NOTE | 2018-02-08 21:58 | PN ---
Teaching Attending Note Name of Resident: Rani Jacobs ATTENDING PHYSICIAN STATEMENT I saw and evaluated the patient. I reviewed the resident's note and discussed the case with the resident. I agree with the resident's findings and plan as documented. SUBJECTIVE: Seen and examined; please refer to resident note for further historical information. The patient is a 72 y/o AAF with a PMH as documented who was just discharged from her NH yesterday; she has spent most of the year inpatient here or at a facility based on review of the available information. She is here because she has had constant diarrhea the whole time she was in the NH (she says it has been completely unchanged for over 1 month) and she is sick of having it and she wants to get better. She has also been weak with no localizing features. Unfortunately she is a poor historian. She said in the ER that her stool was dark but FOBT was done and is negative. She states none of her symptoms are new; I asked her this and the resident asked her this multiple times. She was on a 7 week taper of PO vancomycin from Dr. Todd that was done for C Dif collitis; she had a +toxin PCR done during her admission in november , but one of these was negative. There appeared to be an issue with the colleciton of the sample? Either way she has been compliant with her taper; no improvement in sx. Has seen GI in the past. 10 sys ROS done and is negative aside from HPI Socially has been chronically ill over the past year; no current alcohol or tobacco abuse. FH asked and noncontributory PMH as PSH reviewed and are as per chart OBJECTIVE: VS, labs, imaging reviewed. Afebrile, hemodynamically stable. NAD, resting comfortably in bed, weak voice RRR s1/2 no mgr NT ND +BS heard non hyperactive No edema, no JVD NC AT EOMI PERRLA CN2-12 grossly intact, no fnd Labs reviewed; shows no white count, elevated MCV at 104 that is new, Albumin of 2.0, negative LA, unremarkable BMP. No urinary sx with nondescript UA. Imaging shows stable AAA (4.7x4.6cm) with diffuse colonic thickening suspicious for colitis FOBT negative Cultures pending ASSESSMENT AND PLAN: Mrs. Wilson presents after presenting to the assisted with chronic diarrhea ; suspected CDifficile collitis but has been successfully taking her vancomycin. 1) Chronic Diarrhea, suspected C. Diff -No abdominal pain, no white count, no fever. Colitis seen on this CT and was seen on past CTs -Still has diarrhea finishing her vanco taper from Dr. Todd from 11/2017 (7 week taper); continue when inpatient for now, check stool lactoferrin and CDiff toxin PCR and contact her ID specialist. Followup stool studies ordered in ER. -Avoid loperimide; looks like was ordered in ER but doesn't appear that she got it. -Monitor for BM. If it is acute Cdiff again management per ID; may need to consider other agents like fidaxomycin or fecal transplant. If not CDif consider GI eval for chronic diarrhea 2) Afib with RVR -FOBT negative, rate controlled; continue her home meds without changes (RC with diltiazem, digoxin, propranolol). Check Dig level. 3) Parkinsons Disease -Continue home meds without changes 4) Weakness, repeated admits with worsening functional status -Consult PT, social work. Monitor for improvement. May need placement. 5) H/O Hyperthyroidism -Check TSH -Continue methimazole, propranolol 6) Dark Stool -Negative FOBT 7) AAA -4.7x4.[address]; needs vascular followup as 5 is cutoff for repair. Tobacco hx 8) PVD -Check lipids; not on a statin. Start if needed. 9) HTN -Continue home meds Full Code
[2018-02-08] MEDS ORDERED: VANCOMYCIN 250 MG/5 ML ORAL SOLUTION PO ONE (22:30)
--- NOTE | 2018-02-09 00:51 | HP ---
CHIEF COMPLAINT: diarrhea PCP: Dr. Ramirez HISTORY OF PRESENT ILLNESS: Patient is a 72 y/o female with a history of parkinsons, c. diff, afib, and AAA who presents for diarrhea and weakness. Patient reports the diarrhea began in September and has persisted since then. Patient reports she was discharged from a shelter yesterday. She continued to have about 6 episodes of diarrhea and is too weak at home to make it to the bathroom. Her typically helps her , but because she was feeling helpless she decided to come to the hospital. She reports the diarrhea is more loose then watery. She denies any abdominal pain with the diarrhea, but only has pain upon going to the bathroom in her rectum. She has noticed blood in her stool in the past but has not noticed any recently. She reports she has had a colonoscopy and was not told about any diagnosis for her diarrhea. She went to the shelter in October because she was too weak. She reports they helped her take he 15 pills of medication a day. Patient believes she has a nursing service that comes to her house. Patient reports before September she was able to walk around on her home, but since October has not had the energy to walk of leave bed. Patient denies fever, chills, nausea, headache, chest pain, or shortness of breath. ER course was notable for: (1) Levaquin (2) 1 L NS (3) Recent Travel: denied PAST MEDICAL HISTORY: parkinsons, c.diff, afib, AAA PAST SURGICAL HISTORY: R popliteal stent, toe amputation Social History: Smoking:quit August 2016, 50 pack year Alcohol: denies Drugs: denies Family History: Allergies aspirin Allergy (Verified 02/08/18 14:19) Penicillins Allergy (Verified 02/08/18 14:19) HOME MEDICATIONS: Home Medications Medication Instructions Recorded Acetaminophen 650 mg PO QID 11/25/17 Acetaminophen W/ Codeine #3 1 tab PO TID 11/25/17 [Tylenol # 3 -] Amantadine HCl [Amantadine] 100 mg PO DAILY 11/25/17 Carbidopa/Levodopa [Rytary ER 1 each PO BID 11/25/17 36.25 mg-145 mg Cap] Clopidogrel Bisulfate [Plavix] 75 mg PO DAILY 11/25/17 Diltiazem Cd [Cardizem Cd -] 180 mg PO DAILY 11/25/17 Lactobacillus Acidophilus 1 each PO DAILY 11/25/17 [Acidophilus] Multivit-Min/Iron Fum/Folic AC 1 each PO DAILY 11/25/17 [Ilucf-Eegeiiy-Qjxreqye Tablet] Potassium Chloride [K-Dur -] 20 meq PO DAILY 11/25/17 Propranolol HCl 60 mg PO TID 11/25/17 Sodium,Potassium Phosphates 1 each PO TID 11/25/17 [Phos-Nak Packet] Amino Acids/Protein Hydrolys 30 ml PO BID@0800,1730 packet 12/01/17 [Prosource No Carb Liquid Pkt] Magnesium Chloride [Slow-Mag -] 128 mg PO DAILY tablet.sa 12/01/17 Methimazole [Tapazole -] 20 mg PO Q12H tablet 12/01/17 Digoxin [Lanoxin -] 0.125 mg PO DAILY 12/18/17 Gabapentin [Neurontin -] 100 mg PO Q12H 12/18/17 Ferrous Sulfate 325 mg PO DAILY 02/08/18 Potassium Chloride 20 meq PO DAILY 02/08/18 REVIEW OF SYSTEMS CONSTITUTIONAL: Absent: fever, chills, diaphoresis, generalized weakness, malaise, loss of appetite, weight change HEENT: Absent: rhinorrhea, nasal congestion, throat pain, throat swelling, difficulty swallowing, mouth swelling, ear pain, eye pain, visual changes CARDIOVASCULAR: Absent: chest pain, syncope, palpitations, irregular heart rate, lightheadedness , peripheral edema RESPIRATORY: Absent: cough, shortness of breath, dyspnea with exertion, orthopnea, wheezing, stridor, hemoptysis GASTROINTESTINAL: diarrhea Absent: abdominal pain, abdominal distension, nausea, vomiting, constipation, melena, hematochezia GENITOURINARY: Absent: dysuria, frequency, urgency, hesitancy, hematuria, flank pain, genital pain MUSCULOSKELETAL: Absent: myalgia, arthralgia, joint swelling, back pain, neck pain SKIN: Absent: rash, itching, pallor HEMATOLOGIC/IMMUNOLOGIC: Absent: easy bleeding, easy bruising, lymphadenopathy, frequent infections ENDOCRINE: Absent: unexplained weight gain, unexplained weight loss, heat intolerance, cold intolerance NEUROLOGIC: Absent: headache, focal weakness or paresthesias, dizziness, unsteady gait, seizure, mental status changes, bladder or bowel incontinence PSYCHIATRIC: Absent: anxiety, depression, suicidal or homicidal ideation, hallucinations. PHYSICAL EXAMINATION Vital Signs - 24 hr 02/08/18 02/08/18 02/08/18 14:16 15:59 17:45 Temperature 97.6 F Pulse Rate 64 Pulse Rate [ 60 Left Radial] Respiratory 18 14 16 Rate Blood Pressure 102/51 L Blood Pressure 101/48 L [Right Arm] O2 Sat by Pulse 99 100 100 Oximetry (%) GENERAL: Awake, alert, and fully oriented, in no acute distress. cachectic HEAD: Normal with no signs of trauma. EYES: Pupils equal, round and reactive to light, extraocular movements intact, No lid lag. EARS, NOSE, THROAT: Moist mucous membranes. NECK: Normal range of motion, supple without lymphadenopathy, JVD, or masses. LUNGS: Breath sounds equal, clear to auscultation bilaterally. No wheezes, and no crackles. No accessory muscle use. HEART: Regular rate and rhythm, normal S1 and S2 without murmur, rub or gallop. ABDOMEN: Soft, nontender, not distended, normoactive bowel sounds, no guarding, no rebound, no masses. RECTAL: 1 external hemorrhoid seen, unable to internally palpate 2/2 to tenderness LOWER EXTREMITIES: 2+ pulses, warm, well-perfused. No calf tenderness. No peripheral edema. NEUROLOGICAL: Cranial nerves II-XII intact. Normal speech. PSYCHIATRIC: Cooperative. Good eye contact. Appropriate mood and affect. SKIN: no sacral or heel ulcers noted Laboratory Results - last 24 hr CBC, BMP 02/08/18 15:30 02/08/18 15:30 ASSESSMENT/PLAN: Patient is a 72 y/o female with a history of parkinsons, c. diff, afib, and AAA who presents for diarrhea and weakness. #diarrhea likely 2/2 to c.diff - Patient positive for C.diff 10/19, negative on 10/31, negative on 12/18, but repeat toxin positive on 12/19 - patient sent home on 7 week Vancomycin PO taper - one time 125 mg dose of Vancomycin PO given tonight - f/u with Dr. Todd for further management, consider fecal transplant - patient has not had a change in status, no need for additive therapy, continue taper she was D/C on from 12/19 - continue full diet - f/u blood cx, ucx, stool cx - f/u MG and Phosp level - f/u lactoferrin - abd CT: diffuse thickening of the colon #aneima - macrocytic, likely 2/2 to malnutrition - f/u folate and V B12 level #afib on digoxin - f/u digoxin level - rate controlled - continue diltiazem, digoxin, propanolol #AAA - stable on current abd CT from last CT - 4.7 x 4.66 infrarenal #Hypothyroidism - continue methimazole and propanolol Visit type - Emergency Visit Emergency Visit: Yes ED Registration Date: 02/08/18 Care time: The patient presented to the Emergency Department on the above date and was hospitalized for further evaluation of their emergent condition. - New Patient This patient is new to me today: Yes Date on this admission: 02/09/18 - Critical Care Critical Care patient: No
[2018-02-09 01:19] VITALS: BMI 17.2
[2018-02-09 05:22] LABS: BASO % 0.6 % (0-2.0); EOS % 0.8 % (0-4.5); HEMATOCRIT 29.1 % (32.4-45.2); HEMOGLOBIN 9.2 GM/dL (10.7-15.3); LYMPH % 26.9 % (8-40); MCH 32.8 pg (25.7-33.7); MCHC 31.6 g/dl (32.0-36.0); MEAN CELL VOLUME 103.6 fl (80-96); MEAN PLT VOLUME 6.5 fl (7.5-11.1); MONO % 6.2 % (3.8-10.2); NEUT % 65.5 % (42.8-82.8); PLATELET COUNT 390 K/MM3 (134-434); RBC 2.81 M/mm3 (3.60-5.2); RDW 17.4 % (11.6-15.6); WHITE BLOOD COUNT 7.1 K/mm3 (4.0-10.0)
[2018-02-09 05:49] LABS: ALBUMIN 1.9 g/dl (3.4-5.0); ALK PHOS 78 U/L (45-117); ANION GAP 9 MMOL/L (8-16); BILIRUBIN,TOTAL 0.3 mg/dL (0.2-1); BLOOD UREA NITROGEN 9 mg/dL (7-18); CALCIUM 8.2 mg/dL (8.5-10.1); CHLORIDE 106 mmol/L (98-107); CO2 23 mmol/L (21-32); CREATININE 0.5 mg/dL (0.55-1.3); GLUCOSE,RANDOM 65 mg/dL (74-106); MAGNESIUM 1.7 mg/dL (1.8-2.4); PHOSPHOROUS 3.1 mg/dL (2.5-4.9); POTASSIUM 4.2 mmol/L (3.5-5.1); SGOT/AST 11 U/L (15-37); SGPT/ALT 9 U/L (13-61); SODIUM 137 mmol/L (136-145)
[2018-02-09] MEDS ORDERED: PATIENT'S OWN MEDICATION (NON-FORMULARY) (Propranolol Hcl [Propranolol Hcl] 60 MG) PO SCH (06:00)
[2018-02-09] MEDS: PROPRANOLOL HCL PO SCH ×2 (07:42→14:44)
[2018-02-09] MEDS: NAPH,MB-DB/K PH,MBDB POWDER PACKET PO SCH ×3 (07:42→21:58)
[2018-02-09] MEDS: HEPARIN NA (PORCINE) 5,000 UNITS/ML 1ML VIAL SQ SCH ×3 (07:44→21:58)
[2018-02-09 07:48] LABS: BASO % 0.6 % (0-2.0); EOS % 0.8 % (0-4.5); HEMATOCRIT 26.4 % (32.4-45.2); HEMOGLOBIN 8.4 GM/dL (10.7-15.3); LYMPH % 27.1 % (8-40); MCH 32.6 pg (25.7-33.7); MCHC 31.7 g/dl (32.0-36.0); MEAN PLT VOLUME 6.4 fl (7.5-11.1); MONO % 8.1 % (3.8-10.2); NEUT % 63.4 % (42.8-82.8); PLATELET COUNT 400 K/MM3 (134-434); RBC 2.57 M/mm3 (3.60-5.2); RDW 17.3 % (11.6-15.6)
[2018-02-09 08:49] LABS: ALBUMIN 1.8 g/dl (3.4-5.0); ALK PHOS 75 U/L (45-117); ANION GAP 8 MMOL/L (8-16); BILIRUBIN,TOTAL 0.3 mg/dL (0.2-1); BLOOD UREA NITROGEN 8 mg/dL (7-18); CALCIUM 8.1 mg/dL (8.5-10.1); CHLORIDE 104 mmol/L (98-107); CO2 25 mmol/L (21-32); CREATININE 0.5 mg/dL (0.55-1.3); GLUCOSE,RANDOM 68 mg/dL (74-106); MAGNESIUM 1.7 mg/dL (1.8-2.4); POTASSIUM 4.4 mmol/L (3.5-5.1); SGOT/AST 12 U/L (15-37); SGPT/ALT 10 U/L (13-61); SODIUM 136 mmol/L (136-145); TOT PROT 6.6 g/dl (6.4-8.2)
--- NOTE | 2018-02-09 09:34 | CON.ID ---
Consult Consult Specialty:: infectious diseases Referred by:: Reason for Consultation:: dirrhoea,weakness - History of Present Illness Chief Complaint: dirrhoea History of Present Illness: 72 y/o female with a history of parkinsons, c. diff, afib, and AAA admitted for diarrhea and weakness. Patient reports the diarrhea began in September and has persisted since then. Patient reports she was discharged from a care home yesterday. She continued to have about 6 episodes of diarrhea and is too weak at home to make it to the bathroom. Her typically helps her, but because she was feeling helpless she decided to come to the hospital. She reports the diarrhea is more loose then watery. She denies any abdominal pain with the diarrhea, but only has pain upon going to the bathroom in her rectum. 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 [email or web address] History of Recent Travel: No Home Medications - Allergies Allergies/Adverse Reactions: Allergies Allergy/AdvReac Type Severity Reaction Status Date / Time aspirin Allergy Verified 02/08/18 14:19 Penicillins Allergy Verified 02/08/18 14:19 - Home Medications Home Medications: Ambulatory Orders Acetaminophen 650 mg PO QID 11/25/17 Acetaminophen W/ Codeine #3 [Tylenol # 3 -] 1 tab PO TID 11/25/17 Amantadine HCl [Amantadine] 100 mg PO DAILY 11/25/17 Carbidopa/Levodopa [Rytary ER 36.25 mg-145 mg Cap] 1 each PO BID 11/25/17 Clopidogrel Bisulfate [Plavix] 75 mg PO DAILY 11/25/17 Diltiazem Cd [Cardizem Cd -] 180 mg PO DAILY 11/25/17 Lactobacillus Acidophilus [Acidophilus] 1 each PO DAILY 11/25/17 Multivit-Min/Iron Fum/Folic AC [Oqros-Pvdinuw-Vupxhcul Tablet] 1 each PO DAILY 11/25/17 Potassium Chloride [K-Dur -] 20 meq PO DAILY 11/25/17 Propranolol HCl 60 mg PO TID 11/25/17 Sodium,Potassium Phosphates [Phos-Nak Packet] 1 each PO TID 11/25/17 Amino Acids/Protein Hydrolys [Prosource No Carb Liquid Pkt] 30 ml PO BID@0800, 1730 packet 12/01/17 Magnesium Chloride [Slow-Mag -] 128 mg PO DAILY tablet.sa 12/01/17 Methimazole [Tapazole -] 20 mg PO Q12H tablet 12/01/17 Digoxin [Lanoxin -] 0.125 mg PO DAILY 12/18/17 Gabapentin [Neurontin -] 100 mg PO Q12H 12/18/17 Ferrous Sulfate 325 mg PO DAILY 02/08/18 Potassium Chloride 20 meq PO DAILY 02/08/18 Review of Systems - Review of Systems Constitutional: reports: Weakness Eyes: reports: No Symptoms HENT: reports: No Symptoms Neck: reports: No Symptoms Cardiovascular: reports: No Symptoms Respiratory: reports: No Symptoms Gastrointestinal: reports: Diarrhea, Melena Genitourinary: reports: No Symptoms Musculoskeletal: reports: No Symptoms Integumentary: reports: No Symptoms Neurological: reports: No Symptoms Endocrine: reports: No Symptoms Hematology/Lymphatic: reports: No Symptoms Psychiatric: reports: No Symptoms Physical Exam Vital Signs: Vital Signs Temperature 97.9 F 02/09/18 06:00 Pulse Rate 69 02/09/18 06:00 Respiratory Rate 20 02/09/18 06:00 Blood Pressure 112/51 L 02/09/18 06:00 O2 Sat by Pulse Oximetry (%) 100 02/08/18 17:45 Constitutional: Yes: No Distress, Calm Cardiovascular: Yes: Regular Rate and Rhythm Respiratory: Yes: Regular, CTA Bilaterally Gastrointestinal: Yes: Normal Bowel Sounds, Soft Musculoskeletal: Yes: WNL Extremities: Yes: WNL Neurological: Yes: Alert, Oriented Psychiatric: Yes: Alert, Oriented Labs: CBC, BMP 02/09/18 06:30 02/09/18 06:30 Imaging - Results Chest X-ray: Report Reviewed, Image Reviewed Cat Scan: Image Reviewed Assessment/Plan weakness dirrhoea cdiff history plan await for all the results no abx at this time patient has not had any dirrhoea since admission
[2018-02-09] MEDS: MULTIVITAMINS THER W-MINERALS COMBO TABLET (FP) PO SCH (09:47)
[2018-02-09] MEDS: LACTOBACILLUS ACIDOPHILUS 1 TABLET PO SCH (09:47)
[2018-02-09] MEDS: CLOPIDOGREL BISULFATE 75 MG TABLET (FP) PO SCH (09:47)
[2018-02-09] MEDS: DIGOXIN 0.125 MG TABLET (FP) PO SCH (09:47)
[2018-02-09] MEDS: AMINO ACIDS/PROTEIN HYDROLYS 30 ML LIQUID.PKT PO SCH ×2 (09:47→17:08)
[2018-02-09] MEDS: GABAPENTIN 100 MG CAPSULE (FP) PO SCH ×2 (09:48→21:58)
[2018-02-09] MEDS: FERROUS SO4 325 MG TABLET (FP) PO SCH (09:48)
[2018-02-09] MEDS: METHIMAZOLE 10 MG TABLET (FP) PO SCH ×2 (09:50→21:58)
[2018-02-09] MEDS ORDERED: MAGNESIUM CL 64 MG TABLET.SA PO SCH (10:00)
[2018-02-09] MEDS ORDERED: PATIENT'S OWN MEDICATION (NON-FORMULARY) (Carbidopa/Levodopa [Rytary Er 36.25 Mg-145 Mg Ca PO SCH (10:00)
[2018-02-09] MEDS ORDERED: POTASSIUM CHLORIDE TABS 20 MEQ TABLET.ER (FP) PO SCH (10:00)
--- NOTE | 2018-02-09 10:08 | CON.GI ---
Consult Consult Specialty:: GI Referred by:: Dr. Serra Reason for Consultation:: Diarrhea - History of Present Illness Chief Complaint: Diarrhea: patient confused at times. Not a good historian History of Present Illness: 72F admitted for evaluation of diarrhea. Per the ER note she was BIBEMS for evaluation of tarry diarrhea. The ER note also states that her last admission was for tarry stool and treated with PO vanco. Her last admission was actually for evaluation of rectal bleeding and diarrhea. She was evaluated by dry house operator Dr. Talib Herrera on two recent admissions prior to that time. In 11/08 he evaluated her for loose bowel movements. Apprently she had a C.Diff stool antigen study that was positive 10/19 and repeat 10/[address] scan 10/19/17 revealed normal stool burden, no evidence of colitis, dilated distal small bowel loop and normal appearing TI. 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 He reeveluated her for loose bowel movements and felt she was not a candidate for endoscopic evaluation given her cardiac issues at the time. There has been no diarrhea reported today. There has been no rectal bleeding or melena. CT scan 12/09 revealed thickening of the transverse colon down to the rectosigmoid c/w colitis. She was C. Diff toxin negative, antigen + and toxin PCR was positive. She was treated with PO vanco. She has a anemia spanning from 11/08. She states that she had a colonoscopy 10/08 but She has never had an EGD or colonoscopy. She does not know her family history as she is adopted. PMD: Dr. 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 History of Recent Travel: No Home Medications - Allergies Allergies/Adverse Reactions: Allergies Allergy/AdvReac Type Severity Reaction Status Date / Time aspirin Allergy Verified 02/08/18 14:19 Penicillins Allergy Verified 02/08/18 14:19 - Home Medications Home Medications: Ambulatory Orders Acetaminophen 650 mg PO QID 11/25/17 Acetaminophen W/ Codeine #3 [Tylenol # 3 -] 1 tab PO TID 11/25/17 Amantadine HCl [Amantadine] 100 mg PO DAILY 11/25/17 Carbidopa/Levodopa [Rytary ER 36.25 mg-145 mg Cap] 1 each PO BID 11/25/17 Clopidogrel Bisulfate [Plavix] 75 mg PO DAILY 11/25/17 Diltiazem Cd [Cardizem Cd -] 180 mg PO DAILY 11/25/17 Lactobacillus Acidophilus [Acidophilus] 1 each PO DAILY 11/25/17 Multivit-Min/Iron Fum/Folic AC [Mxpia-Ndrklfk-Xuudggaz Tablet] 1 each PO DAILY 11/25/17 Potassium Chloride [K-Dur -] 20 meq PO DAILY 11/25/17 Propranolol HCl 60 mg PO TID 11/25/17 Sodium,Potassium Phosphates [Phos-Nak Packet] 1 each PO TID 11/25/17 Amino Acids/Protein Hydrolys [Prosource No Carb Liquid Pkt] 30 ml PO BID@0800, 1730 packet 12/01/17 Magnesium Chloride [Slow-Mag -] 128 mg PO DAILY tablet.sa 12/01/17 Methimazole [Tapazole -] 20 mg PO Q12H tablet 12/01/17 Digoxin [Lanoxin -] 0.125 mg PO DAILY 12/18/17 Gabapentin [Neurontin -] 100 mg PO Q12H 12/18/17 Ferrous Sulfate 325 mg PO DAILY 02/08/18 Potassium Chloride 20 meq PO DAILY 02/08/18 Family Disease History - Family Disease History Other Family History: Unknown. Patient adopted Review of Systems - Review of Systems Constitutional: denies: Chills Cardiovascular: denies: Chest Pain Respiratory: denies: SOB Gastrointestinal: reports: Diarrhea. denies: Abdominal Pain, Rectal Bleeding Physical Exam-GI Vital Signs: Vital Signs Temperature 97.9 F 02/09/18 06:00 Pulse Rate 62 02/09/18 09:47 Respiratory Rate 20 11/19/18 06:00 Blood Pressure 112/51 L 02/09/18 06:00 O2 Sat by Pulse Oximetry (%) 100 02/08/18 17:45 Constitutional: Yes: Calm Eyes: No: Sclera Icterus Cardiovascular: Yes: Regular Rate and Rhythm Respiratory: Yes: Diminished (at bases bilaterally) Gastrointestinal Inspection: No: Distention ...Auscultate: Yes: Normoactive Bowel Sounds ...Palpate: Yes: Soft. No: Hepatomegaly, Tenderness, Other ...Percussion: No: Tympanitic Edema: No (No LE edema) Neurological: Yes: Alert Labs: CBC, BMP 02/09/18 06:30 02/09/18 06:30 INR, PTT INR 1.13 (0.83-1.09) H 02/08/18 15:30 Problem List - Problems (1) Diarrhea Assessment/Plan: Likely multifactorial: C. Diff + previously Is also on multiple medications that can contribute to diarrhea: digoxin, propraolol, amantadine, slow Mag, potassiuim chloride supplementation, iron supplementation in the elderly, neurontin Advise: Attempt at medication elimination per PMD Awaiting stool C. Diff. If C. Diff + would treat with PO canco and slow taper. If C. Diff negative and diarrhea persists, discussed EGD/Colonoscopy with Ms. Falcon and her via telephone. Discussed potential risks of the procedure like but not limited to bleeding, perforatiion requiring surgery to repair, infection, sedation medication effects all of which could be potentially life threatening. Ms. Falcon deferred to her [facility]'s decision. He is agreeable to the procedures. She will need medical clearance prior to procedures giuven recent cardiac issues. Also, decision will need to be made re : if plavix can be held prior to procedures. If not I explained to Ms. Falcon' s that it would put her at higher risk for bleeding. Code(s): R19.7 - DIARRHEA, UNSPECIFIED Qualifiers: Diarrhea type: unspecified type Qualified Code(s): R19.7 - Diarrhea, unspecified
[2018-02-09] MEDS ORDERED: PT OWN MED DRAWER 7, Y5N ONE ×3 (12:20→21:20)
--- NOTE | 2018-02-09 13:10 | PN ---
Progress Note, Physician Chief Complaint: Ms Wilson says she is still having loose stools, unchanged. No cp, sob, n/v. - Current Medication List Current Medications: Active Medications Amantadine HCl (Symmetrel -) 100 mg PO DAILY [facility] Amino Acids (Prosource No Carb Liquid Pkt) 30 ml PO BID@0800,1730 [facility] Last Admin: 02/09/18 09:47 Dose: 30 ml Clopidogrel Bisulfate (Plavix -) 75 mg PO DAILY [facility] Last Admin: 02/09/18 09:47 Dose: 75 mg Digoxin (Lanoxin -) 0.125 mg PO DAILY [facility] Last Admin: 02/09/18 09:47 Dose: 0.125 mg Diltiazem HCl (Cardizem Cd -) 180 mg PO DAILY [facility] Last Admin: 02/09/18 09:47 Dose: 180 mg Ferrous Sulfate (Feosol -) 325 mg PO DAILY [facility] Last Admin: 02/09/18 09:48 Dose: 325 mg Gabapentin (Neurontin -) 100 mg PO BID [facility] Last Admin: 02/09/18 09:48 Dose: 100 mg Heparin Sodium (Porcine) (Heparin -) 5,000 unit SQ TID [facility] Last Admin: 02/09/18 07:44 Dose: 5,000 unit Lactobacillus Acidophilus (Bacid -) 1 tab PO DAILY [facility] Last Admin: 02/09/18 09:47 Dose: 1 tab Magnesium Chloride (Slow-Mag -) 128 mg PO DAILY [facility] Last Admin: 02/09/18 09:49 Dose: 128 mg Methimazole (Tapazole -) 20 mg PO BID [facility] Last Admin: 02/09/18 09:50 Dose: 20 mg Multivitamins/Minerals (Theragran-M) 1 each PO DAILY [facility] Last Admin: 02/09/18 09:47 Dose: 1 each Non-Formulary Medication (Carbidopa/Levodopa [Rytary Er 36.25 Mg-145 Mg Cap]) 1 each PO BID [facility] Potassium Chloride (K-Dur -) 20 meq PO DAILY [facility] Last Admin: 02/09/18 09:47 Dose: 20 meq Potassium Phos/Sodium Phos (Phos-Nak Packet -) 1 packet PO TID [facility] Last Admin: 02/09/18 07:42 Dose: Not Given Propranolol HCl 40 mg/ (Propranolol HCl 20 mg) 60 mg PO TID [facility] Last Admin: 02/09/18 07:42 Dose: Not Given - Objective Vital Signs: Vital Signs Temperature 36.6 C 02/09/18 06:00 Pulse Rate 62 02/09/18 09:47 Respiratory Rate 20 02/09/18 06:00 Blood Pressure 112/51 L 02/09/18 06:00 O2 Sat by Pulse Oximetry (%) 100 02/08/18 17:45 Constitutional: Yes: No Distress, Calm, Thin Cardiovascular: Yes: Regular Rate and Rhythm. No: Gallop, Murmur, Rub Respiratory: Yes: Regular, CTA Bilaterally. No: Rales, Rhonchi, Wheezes Gastrointestinal: Yes: Normal Bowel Sounds. No: Distention, Tenderness Extremities: Yes: WNL Edema: No Labs: CBC, BMP 02/09/18 06:30 02/09/18 06:30 INR, PTT INR 1.13 (0.83-1.09) H 02/08/18 15:30 Problem List - Problems (1) Diarrhea Code(s): R19.7 - DIARRHEA, UNSPECIFIED Qualifiers: Diarrhea type: unspecified type Qualified Code(s): R19.7 - Diarrhea, unspecified (2) Severe malnutrition Code(s): E43 - UNSPECIFIED SEVERE PROTEIN-CALORIE MALNUTRITION (3) AAA (abdominal aortic aneurysm) Code(s): I71.4 - ABDOMINAL AORTIC ANEURYSM, WITHOUT RUPTURE Qualifiers: Presence of rupture: without rupture Qualified Code(s): I71.4 - Abdominal aortic aneurysm, without rupture (4) Afib Code(s): I48.91 - UNSPECIFIED ATRIAL FIBRILLATION (5) HTN (hypertension) Code(s): I10 - ESSENTIAL (PRIMARY) HYPERTENSION (6) Hyperthyroidism Code(s): E05.90 - THYROTOXICOSIS, UNSP WITHOUT THYROTOXIC CRISIS OR STORM (7) Parkinson disease Code(s): G20 - PARKINSON'S DISEASE (8) Peripheral vascular disease Code(s): I73.9 - PERIPHERAL VASCULAR DISEASE, UNSPECIFIED (9) Weakness Code(s): R53.1 - WEAKNESS Assessment/Plan -appreciate GI assistance -will trial stopping magnesium, potassium, and propanolol -see if decreases diarrhea and if patient can tolerate -follow up c diff studies -possible EGD and colonoscopy per GI -continue current management Case d/w Dr Rod PGY-3 and plan formulated
--- NOTE | 2018-02-09 13:45 | PN ---
Physical Exam: SUBJECTIVE: Patient seen and examined at bedside. No overnight events. No new complaints. Continues to have loose stools unchanged. Denies CP, MENJIVAR, SOB, nausea or vomiting. OBJECTIVE: Vital Signs Period Temp Pulse Resp BP Sys/Watkins Pulse Ox Last 24 Hr 97.6 F-97.9 F 60-75 14-20 101-112/48-59 99-100 GENERAL: awake and alert, thin a frail, NAD LUNGS: CTAB, no wheezes, no crackles, no accessory muscle use. HEART: RRR, S1, S2 without murmur, rub or gallop. ABDOMEN: Soft, nontender, nondistended, normoactive bowel sounds, no guarding, no rebound, no hepatosplenomegaly, no masses. EXTREMITIES: 2+ pulses, warm, well-perfused, no edema. NEUROLOGICAL: Cranial nerves II through XII grossly intact. Normal speech, gait not observed. PSYCH: Normal mood, normal affect. SKIN: Warm, dry, normal turgor, no rashes or lesions noted Laboratory Results - last 24 hr 02/08/18 02/08/18 02/08/18 15:30 15:30 15:30 WBC 8.7 RBC 2.86 L Hgb 9.4 L Hct 29.8 L MCV 104.3 H MCH 32.8 MCHC 31.5 L RDW 17.5 H Plt Count 494 H D MPV 6.8 L Absolute Neuts (auto) 5.7 Neutrophils % 65.7 Lymphocytes % 26.4 Monocytes % 6.3 Eosinophils % 1.2 D Basophils % 0.4 Nucleated RBC % 0 PT with INR 13.40 H INR 1.13 H PTT (Actin FS) 26.7 Sodium 137 Potassium 4.6 Chloride 103 Carbon Dioxide 27 Anion Gap 7 L BUN 11 Creatinine 0.8 Creat Clearance w eGFR > 60 Random Glucose 80 Lactic Acid Calcium 8.1 L Phosphorus Magnesium Total Bilirubin 0.2 AST 15 ALT 11 L Alkaline Phosphatase 74 Total Protein 7.3 Albumin 2.0 L Vitamin B12 Serum Folate TSH Urine Color Urine Appearance Urine pH Ur Specific [place] Urine Protein Urine Glucose (UA) Urine Ketones Urine Blood Urine Nitrite Urine Bilirubin Urine Urobilinogen Ur Leukocyte Esterase Urine WBC (Auto) Urine RBC (Auto) Ur Epithelial Cells Urine Bacteria Urine Mucus Stool Occult Blood Digoxin Blood Type Antibody Screen 02/08/18 02/08/18 02/08/18 15:30 15:30 15:30 WBC RBC Hgb Hct MCV MCH MCHC RDW Plt Count MPV Absolute Neuts (auto) Neutrophils % Lymphocytes % Monocytes % Eosinophils % Basophils % Nucleated RBC % PT with INR INR PTT (Actin FS) Sodium Potassium Chloride Carbon Dioxide Anion Gap BUN Creatinine Creat Clearance w eGFR Random Glucose Lactic Acid 1.4 Calcium Phosphorus Magnesium Total Bilirubin AST ALT Alkaline Phosphatase Total Protein Albumin Vitamin B12 Serum Folate TSH Urine Color Dkyellow Urine Appearance Clear Urine pH 6.0 Ur Specific [place] 1.023 Urine Protein Negative Urine Glucose (UA) Negative Urine Ketones Trace H Urine Blood Negative Urine Nitrite Negative Urine Bilirubin Negative Urine Urobilinogen Negative Ur Leukocyte Esterase Trace Urine WBC (Auto) 31 Urine RBC (Auto) 3 Ur Epithelial Cells Rare Urine Bacteria Rare Urine Mucus Rare Stool Occult Blood Cancelled Digoxin Blood Type Antibody Screen 02/08/18 02/08/18 02/09/18 15:30 16:36 04:15 WBC 7.1 RBC 2.81 L Hgb 9.2 L Hct 29.1 L MCV 103.6 H MCH 32.8 MCHC 31.6 L RDW 17.4 H Plt Count 390 D MPV 6.5 L Absolute Neuts (auto) 4.6 Neutrophils % 65.5 Lymphocytes % 26.9 Monocytes % 6.2 Eosinophils % 0.8 Basophils % 0.6 Nucleated RBC % 0 PT with INR INR PTT (Actin FS) Sodium Potassium Chloride Carbon Dioxide Anion Gap BUN Creatinine Creat Clearance w eGFR Random Glucose Lactic Acid Calcium Phosphorus Magnesium Total Bilirubin AST ALT Alkaline Phosphatase Total Protein Albumin Vitamin B12 Serum Folate TSH Urine Color Urine Appearance Urine pH Ur Specific [place] Urine Protein Urine Glucose (UA) Urine Ketones Urine Blood Urine Nitrite Urine Bilirubin Urine Urobilinogen Ur Leukocyte Esterase Urine WBC (Auto) Urine RBC (Auto) Ur Epithelial Cells Urine Bacteria Urine Mucus Stool Occult Blood Negative Digoxin Blood Type A POSITIVE Antibody Screen Negative 02/09/18 02/09/18 02/09/18 04:15 06:30 06:30 WBC 7.0 RBC 2.57 L Hgb 8.4 L Hct 26.4 L MCV 103.0 H MCH 32.6 MCHC 31.7 L RDW 17.3 H Plt Count 400 MPV 6.4 L Absolute Neuts (auto) 4.4 Neutrophils % 63.4 Lymphocytes % 27.1 Monocytes % 8.1 Eosinophils % 0.8 Basophils % 0.6 Nucleated RBC % 0 PT with INR INR PTT (Actin FS) Sodium 137 136 Potassium 4.2 4.4 Chloride 106 104 Carbon Dioxide 23 25 Anion Gap 9 8 BUN 9 8 Creatinine 0.5 L 0.5 L Creat Clearance w eGFR > 60 > 60 Random Glucose 65 L 68 L Lactic Acid Calcium 8.2 L 8.1 L Phosphorus 3.1 3.0 Magnesium 1.7 L 1.7 L Total Bilirubin 0.3 0.3 AST 11 L 12 L ALT 9 L 10 L Alkaline Phosphatase 78 75 Total Protein 7.0 6.6 Albumin 1.9 L 1.8 L Vitamin B12 437 Serum Folate 10 TSH 2.49 Urine Color Urine Appearance Urine pH Ur Specific [place] Urine Protein Urine Glucose (UA) Urine Ketones Urine Blood Urine Nitrite Urine Bilirubin Urine Urobilinogen Ur Leukocyte Esterase Urine WBC (Auto) Urine RBC (Auto) Ur Epithelial Cells Urine Bacteria Urine Mucus Stool Occult Blood Digoxin 0.68 L Blood Type Antibody Screen 02/09/18 06:30 WBC RBC Hgb Hct MCV MCH MCHC RDW Plt Count MPV Absolute Neuts (auto) Neutrophils % Lymphocytes % Monocytes % Eosinophils % Basophils % Nucleated RBC % PT with INR INR PTT (Actin FS) Sodium Cancelled Potassium Cancelled Chloride Cancelled Carbon Dioxide Cancelled Anion Gap Cancelled BUN Cancelled Creatinine Cancelled Creat Clearance w eGFR Cancelled Random Glucose Cancelled Lactic Acid Calcium Cancelled Phosphorus Cancelled Magnesium Total Bilirubin Cancelled AST Cancelled ALT Cancelled Alkaline Phosphatase Cancelled Total Protein Cancelled Albumin Cancelled Vitamin B12 Serum Folate TSH Cancelled Urine Color Urine Appearance Urine pH Ur Specific [place] Urine Protein Urine Glucose (UA) Urine Ketones Urine Blood Urine Nitrite Urine Bilirubin Urine Urobilinogen Ur Leukocyte Esterase Urine WBC (Auto) Urine RBC (Auto) Ur Epithelial Cells Urine Bacteria Urine Mucus Stool Occult Blood Digoxin Blood Type Antibody Screen Active Medications Generic Name Dose Route Start Last Admin Trade Name Freq PRN Reason Stop Dose Admin Amantadine HCl 100 mg 02/09/18 10:00 Symmetrel - PO DAILY MELANY Amino Acids 30 ml 02/09/18 08:00 02/09/18 09:47 Prosource No Carb Liquid Pkt PO 30 ml BID@0800,1730 MELANY Administration Clopidogrel Bisulfate 75 mg 02/09/18 10:00 02/09/18 09:47 Plavix - PO 75 mg DAILY MELANY Administration Digoxin 0.125 mg 02/09/18 10:00 02/09/18 09:47 Lanoxin - PO 0.125 mg DAILY MELANY Administration Diltiazem HCl 180 mg 02/09/18 10:00 02/09/18 09:47 Cardizem Cd - PO 180 mg DAILY MELANY Administration Ferrous Sulfate 325 mg 02/09/18 10:00 02/09/18 09:48 Feosol - PO 325 mg DAILY MELANY Administration Gabapentin 100 mg 02/09/18 10:00 02/09/18 09:48 Neurontin - PO 100 mg BID MELANY Administration Heparin Sodium (Porcine) 5,000 unit 02/09/18 06:00 02/09/18 07:44 Heparin - SQ 5,000 unit TID MELANY Administration Lactobacillus Acidophilus 1 tab 02/09/18 10:00 02/09/18 09:47 Bacid - PO 1 tab DAILY MELANY Administration Magnesium Chloride 128 mg 02/09/18 10:00 02/09/18 09:49 Slow-Mag - PO 128 mg DAILY MELANY Administration Methimazole 20 mg 02/09/18 10:00 02/09/18 09:50 Tapazole - PO 20 mg BID MELANY Administration Multivitamins/Minerals 1 each 02/09/18 10:00 02/09/18 09:47 Theragran-M PO 1 each DAILY MELANY Administration Non-Formulary Medication 1 each 02/09/18 10:00 Carbidopa/Levodopa [Rytary Er 36.25 Mg-145 Mg Cap] PO BID MELANY Potassium Chloride 20 meq 02/09/18 10:00 02/09/18 09:47 K-Dur - PO 20 meq DAILY MELANY Administration Potassium Phos/Sodium Phos 1 packet 02/09/18 06:00 02/09/18 07:42 Phos-Nak Packet - PO Not Given TID MELANY Propranolol HCl 40 mg/ 60 mg 02/09/18 06:00 02/09/18 07:42 Propranolol HCl 20 mg PO Not Given TID MELANY ASSESSMENT/PLAN: Problem List - Problems (1) Colitis Assessment/Plan: * stool studies pending * GI consult appreciated * trial stopping magnesium, potassium, and propanolol * Possible EGD and colonoscopy (2) Diarrhea (3) AAA (abdominal aortic aneurysm) (4) Afib (5) HTN (hypertension) (6) Hyperthyroidism (7) Parkinson disease (8) Peripheral vascular disease (9) Weakness Visit type - Emergency Visit Emergency Visit: Yes ED Registration Date: 02/08/18 Care time: The patient presented to the Emergency Department on the above date and was hospitalized for further evaluation of their emergent condition. - New Patient This patient is new to me today: Yes Date on this admission: 02/10/18 - Critical Care Critical Care patient: No
[2018-02-09] MEDS: AMANTADINE HCL 100 MG TABLET PO SCH (17:29)
--- NOTE | 2018-02-09 18:31 | EKG ---
Test Reason : Blood Pressure : / mmHG Vent. Rate : 057 BPM Atrial Rate : 416 BPM P-R Int : 000 ms QRS Dur : 070 ms QT Int : 392 ms P-R-T Axes : 000 035 038 degrees QTc Int : 381 ms ATRIAL FIBRILLATION WITH SLOW VENTRICULAR RESPONSE NONSPECIFIC T WAVE ABNORMALITY ABNORMAL ECG WHEN COMPARED WITH ECG OF 18-DEC-2017 17:34, NO SIGNIFICANT CHANGE WAS FOUND Confirmed by ADELIA JAIN MD ([id number]) on 02/09/2018 6:31:24 PM Referred By: Confirmed By:ADELIA JAIN MD
[2018-02-10] MEDS: NAPH,MB-DB/K PH,MBDB POWDER PACKET PO SCH ×3 (06:56→21:11)
[2018-02-10] MEDS: HEPARIN NA (PORCINE) 5,000 UNITS/ML 1ML VIAL SQ SCH ×3 (06:56→21:11)
[2018-02-10 07:23] LABS: BASO % 0.3 % (0-2.0); EOS % 0.2 % (0-4.5); HEMATOCRIT 30.8 % (32.4-45.2); HEMOGLOBIN 9.5 GM/dL (10.7-15.3); LYMPH % 16.4 % (8-40); MCHC 30.9 g/dl (32.0-36.0); MEAN CELL VOLUME 103.7 fl (80-96); MEAN PLT VOLUME 6.5 fl (7.5-11.1); MONO % 7.7 % (3.8-10.2); NEUT % 75.4 % (42.8-82.8); PLATELET COUNT 408 K/MM3 (134-434); RBC 2.97 M/mm3 (3.60-5.2); RDW 16.8 % (11.6-15.6); WHITE BLOOD COUNT 11.6 K/mm3 (4.0-10.0)
[2018-02-10 07:49] LABS: ALK PHOS 82 U/L (45-117); ANION GAP 10 MMOL/L (8-16); BILIRUBIN,TOTAL 0.4 mg/dL (0.2-1); BLOOD UREA NITROGEN 9 mg/dL (7-18); CALCIUM 8.3 mg/dL (8.5-10.1); CHLORIDE 103 mmol/L (98-107); CO2 23 mmol/L (21-32); CREATININE 0.6 mg/dL (0.55-1.3); GLUCOSE,RANDOM 75 mg/dL (74-106); POTASSIUM 4.3 mmol/L (3.5-5.1); SGOT/AST 19 U/L (15-37); SGPT/ALT 12 U/L (13-61); SODIUM 135 mmol/L (136-145); TOT PROT 7.4 g/dl (6.4-8.2)
[2018-02-10] MEDS ORDERED: PT OWN MED DRAWER 7, Y5N ONE ×3 (09:10→21:06)
[2018-02-10] MEDS: FERROUS SO4 325 MG TABLET (FP) PO SCH (11:03)
[2018-02-10] MEDS: DIGOXIN 0.125 MG TABLET (FP) PO SCH (11:03)
[2018-02-10] MEDS: AMINO ACIDS/PROTEIN HYDROLYS 30 ML LIQUID.PKT PO SCH ×2 (11:03→17:39)
[2018-02-10] MEDS: MULTIVITAMINS THER W-MINERALS COMBO TABLET (FP) PO SCH (11:05)
[2018-02-10] MEDS: GABAPENTIN 100 MG CAPSULE (FP) PO SCH ×2 (11:05→21:12)
[2018-02-10] MEDS: CLOPIDOGREL BISULFATE 75 MG TABLET (FP) PO SCH (11:06)
[2018-02-10] MEDS: METHIMAZOLE 10 MG TABLET (FP) PO SCH ×2 (11:07→21:12)
[2018-02-10] MEDS: AMANTADINE HCL 100 MG TABLET PO SCH (11:08)
[2018-02-10] MEDS: LACTOBACILLUS ACIDOPHILUS 1 TABLET PO SCH (11:11)
--- NOTE | 2018-02-10 12:06 | PN ---
Progress Note, Physician History of Present Illness: patient had couple of loose bm last night none since this morning - Current Medication List Current Medications: Active Medications Amantadine HCl (Symmetrel -) 100 mg PO DAILY [facility] Last Admin: 02/10/18 11:08 Dose: 100 mg Amino Acids (Prosource No Carb Liquid Pkt) 30 ml PO BID@0800,1730 [facility] Last Admin: 02/10/18 11:03 Dose: 30 ml Clopidogrel Bisulfate (Plavix -) 75 mg PO DAILY [facility] Last Admin: 02/10/18 11:06 Dose: 75 mg Digoxin (Lanoxin -) 0.125 mg PO DAILY [facility] Last Admin: 02/10/18 11:03 Dose: 0.125 mg Diltiazem HCl (Cardizem Cd -) 180 mg PO DAILY [facility] Last Admin: 02/10/18 11:11 Dose: 180 mg Ferrous Sulfate (Feosol -) 325 mg PO DAILY [facility] Last Admin: 02/10/18 11:03 Dose: 325 mg Gabapentin (Neurontin -) 100 mg PO BID [facility] Last Admin: 02/10/18 11:05 Dose: 100 mg Heparin Sodium (Porcine) (Heparin -) 5,000 unit SQ TID [facility] Last Admin: 02/10/18 06:56 Dose: 5,000 unit Lactobacillus Acidophilus (Bacid -) 1 tab PO DAILY [facility] Last Admin: 02/10/18 11:11 Dose: 1 tab Methimazole (Tapazole -) 20 mg PO BID [facility] Last Admin: 02/10/18 11:07 Dose: 20 mg Multivitamins/Minerals (Theragran-M) 1 each PO DAILY [facility] Last Admin: 02/10/18 11:05 Dose: 1 each Non-Formulary Medication (Carbidopa/Levodopa [Rytary Er 36.25 Mg-145 Mg Cap]) 1 each PO BID [facility] Potassium Phos/Sodium Phos (Phos-Nak Packet -) 1 packet PO TID [facility] Last Admin: 02/10/18 06:56 Dose: 1 packet - Objective Vital Signs: Vital Signs Temperature 98 F 02/10/18 07:45 Pulse Rate 76 02/10/18 11:03 Respiratory Rate 20 02/10/18 07:45 Blood Pressure 122/72 02/10/18 07:45 O2 Sat by Pulse Oximetry (%) 96 02/09/18 20:48 Constitutional: Yes: No Distress, Calm, Other (weakness) Respiratory: Yes: Regular, CTA Bilaterally Gastrointestinal: Yes: Normal Bowel Sounds, Soft Musculoskeletal: Yes: WNL Extremities: Yes: WNL Neurological: Yes: Alert, Oriented Psychiatric: Yes: Alert Labs: CBC, BMP 02/10/18 06:15 02/10/18 06:15 INR, PTT INR 1.13 (0.83-1.09) H 02/08/18 15:30 Assessment/Plan weakness dirrhoea cdiff history plan fluid replacement continue monitoring
--- NOTE | 2018-02-10 15:51 | PN ---
Physical Exam: SUBJECTIVE: Patient seen and examined at bedside. No overnight events. No new complaints. Denies CP,MENJIVAR, SOB, abdominal pain, nausea or vomiting. Continues to have loose BM's x2 OBJECTIVE: Vital Signs Period Temp Pulse Resp BP Sys/Watkins Pulse Ox Last 24 Hr 98 F-98.2 F 76-93 20-20 98-122/58-72 96 GENERAL: The patient is awake, alert, and fully oriented, in no acute distress. HEAD: Normal with no signs of trauma. EYES: PERRL, extraocular movements intact, sclera anicteric, conjunctiva clear. No ptosis. ENT: Ears normal, nares patent, oropharynx clear without exudates, moist mucous membranes. NECK: Trachea midline, full range of motion, supple. LUNGS: Breath sounds equal, clear to auscultation bilaterally, no wheezes, no crackles, no accessory muscle use. HEART: Regular rate and rhythm, S1, S2 without murmur, rub or gallop. ABDOMEN: Soft, mild LLQ tendterness. , nondistended, normoactive bowel sounds, no guarding, no rebound, no hepatosplenomegaly, no masses. EXTREMITIES: 2+ pulses, warm, well-perfused, no edema. NEUROLOGICAL: Cranial nerves II through XII grossly intact. Normal speech, gait not observed. PSYCH: Normal mood, normal affect. SKIN: Warm, dry, normal turgor, no rashes or lesions noted Laboratory Results - last 24 hr 02/10/18 02/10/18 06:15 06:15 WBC 11.6 H RBC 2.97 L Hgb 9.5 L Hct 30.8 L D MCV 103.7 H MCH 32.0 MCHC 30.9 L RDW 16.8 H Plt Count 408 MPV 6.5 L Absolute Neuts (auto) 8.7 H Neutrophils % 75.4 Lymphocytes % 16.4 D Monocytes % 7.7 Eosinophils % 0.2 Basophils % 0.3 Nucleated RBC % 0 Sodium 135 L Potassium 4.3 Chloride 103 Carbon Dioxide 23 Anion Gap 10 BUN 9 Creatinine 0.6 Creat Clearance w eGFR > 60 Random Glucose 75 Calcium 8.3 L Total Bilirubin 0.4 AST 19 ALT 12 L Alkaline Phosphatase 82 Total Protein 7.4 Albumin 2.0 L Active Medications Generic Name Dose Route Start Last Admin Trade Name Freq PRN Reason Stop Dose Admin Amantadine HCl 100 mg 11/19/18 10:00 02/10/18 11:08 Symmetrel - PO 100 mg DAILY MELANY Administration Amino Acids 30 ml 02/09/18 08:00 02/10/18 11:03 Prosource No Carb Liquid Pkt PO 30 ml BID@0800,1730 MELANY Administration Clopidogrel Bisulfate 75 mg 02/09/18 10:00 02/10/18 11:06 Plavix - PO 75 mg DAILY MELANY Administration Digoxin 0.125 mg 02/09/18 10:00 02/10/18 11:03 Lanoxin - PO 0.125 mg DAILY MELANY Administration Diltiazem HCl 180 mg 02/09/18 10:00 02/10/18 11:11 Cardizem Cd - PO 180 mg DAILY MELANY Administration Ferrous Sulfate 325 mg 02/09/18 10:00 02/10/18 11:03 Feosol - PO 325 mg DAILY MELANY Administration Gabapentin 100 mg 02/09/18 10:00 02/10/18 11:05 Neurontin - PO 100 mg BID MELANY Administration Heparin Sodium (Porcine) 5,000 unit 02/09/18 06:00 02/10/18 14:09 Heparin - SQ 5,000 unit TID MELANY Administration Lactobacillus Acidophilus 1 tab 02/09/18 10:00 02/10/18 11:11 Bacid - PO 1 tab DAILY MELANY Administration Methimazole 20 mg 02/09/18 10:00 02/10/18 11:07 Tapazole - PO 20 mg BID MELANY Administration Multivitamins/Minerals 1 each 02/09/18 10:00 02/10/18 11:05 Theragran-M PO 1 each DAILY MELANY Administration Non-Formulary Medication 1 each 02/09/18 10:00 Carbidopa/Levodopa [Rytary Er 36.25 Mg-145 Mg Cap] PO BID [facility] Potassium Phos/Sodium Phos 1 packet 02/09/18 06:00 02/10/18 14:10 Phos-Nak Packet - PO 1 packet TID MELANY Administration ASSESSMENT/PLAN: Problem List - Problems (1) Colitis Assessment/Plan: * stool studies show Cdiff Ag and toxin negative. * GI consult appreciated * trial stopping magnesium, potassium, and propanolol * Possible EGD and colonoscopy (2) Diarrhea (3) AAA (abdominal aortic aneurysm) (4) Afib (5) HTN (hypertension) (6) Hyperthyroidism (7) Parkinson disease (8) Peripheral vascular disease (9) Weakness Visit type - Emergency Visit Emergency Visit: Yes ED Registration Date: 02/08/18 Care time: The patient presented to the Emergency Department on the above date and was hospitalized for further evaluation of their emergent condition. - New Patient This patient is new to me today: Yes Date on this admission: 02/16/18 - Critical Care Critical Care patient: No
[2018-02-10] MEDS ORDERED: BISACODYL 5 MG TABLET.DR (FP) PO ONE (17:12)
--- NOTE | 2018-02-10 17:16 | PN ---
GI Progress Note Subjective: Still with loose BMs C. Diff negative CT scan shows persistent colitis - Objective Vital Signs: Vital Signs Temperature 98 F 02/10/18 07:45 Pulse Rate 76 02/10/18 11:03 Respiratory Rate 20 02/10/18 07:45 Blood Pressure 122/72 02/10/18 07:45 O2 Sat by Pulse Oximetry (%) 96 02/09/18 20:48 Constitutional: Calm Cardiovascular: Yes: Regular Rate and Rhythm Respiratory: Yes: CTA Bilaterally Gastrointestinal Inspection: No: Distention ...Auscultate: Yes: Normoactive Bowel Sounds ...Palpate: Yes: Soft. No: Tenderness Edema: No (No LE edema) Labs: CBC, BMP 02/10/18 06:15 02/10/18 06:15 INR, PTT INR 1.13 (0.83-1.09) H 02/08/18 15:30 - ....Imaging Cat Scan: Report Reviewed Problem List - Problems (1) Diarrhea Assessment/Plan: Persistent diarrhea Medication adjustments underway Patient's present at bedside. Both He and Ms. Falcon agreeable to colonoscopy. COnsent obtained from as she carries diagnosis of dementia Code(s): R19.7 - DIARRHEA, UNSPECIFIED Qualifiers: Diarrhea type: unspecified type Qualified Code(s): R19.7 - Diarrhea, unspecified
[2018-02-10] MEDS ORDERED: PEG3350/SOD SULF,BICARB,CL/KCL 4,000 ML SOLN.RECON PO ONE (18:00)
--- NOTE | 2018-02-10 18:23 | PN ---
Teaching Attending Note Name of Resident: Pete Rod S: Mrs Wilson says she is not having diarrhea today. No cp, sob, n/v O: GEN: nad CV: rrr w/o m/r/g PULM: ctab w/o w/r/r ABD: +bs, s/nt/nd EXT: no c/c/e Problem List - Problems (1) Diarrhea Code(s): R19.7 - DIARRHEA, UNSPECIFIED Qualifiers: Diarrhea type: unspecified type Qualified Code(s): R19.7 - Diarrhea, unspecified (2) Severe malnutrition Code(s): E43 - UNSPECIFIED SEVERE PROTEIN-CALORIE MALNUTRITION (3) AAA (abdominal aortic aneurysm) Code(s): I71.4 - ABDOMINAL AORTIC ANEURYSM, WITHOUT RUPTURE Qualifiers: Presence of rupture: without rupture Qualified Code(s): I71.4 - Abdominal aortic aneurysm, without rupture (4) Afib Code(s): I48.91 - UNSPECIFIED ATRIAL FIBRILLATION (5) HTN (hypertension) Code(s): I10 - ESSENTIAL (PRIMARY) HYPERTENSION (6) Hyperthyroidism Code(s): E05.90 - THYROTOXICOSIS, UNSP WITHOUT THYROTOXIC CRISIS OR STORM (7) Parkinson disease Code(s): G20 - PARKINSON'S DISEASE (8) Peripheral vascular disease Code(s): I73.9 - PERIPHERAL VASCULAR DISEASE, UNSPECIFIED (9) Weakness Code(s): R53.1 - WEAKNESS Assessment/Plan -appreciate GI assistance and case discussed -will consult cardiology for cardiac clearance -plan for EGD and colonoscopy -magnesium, potassium, and propanolol discontinued this admission -see if decreases diarrhea and if patient can tolerate -c diff negative -continue current management ATTENDING PHYSICIAN STATEMENT I saw and evaluated the patient. I reviewed the resident's note and discussed the case with the resident. I agree with the resident's findings and plan as documented. Problem List - Problems (1) Diarrhea Code(s): R19.7 - DIARRHEA, UNSPECIFIED Qualifiers: Diarrhea type: unspecified type Qualified Code(s): R19.7 - Diarrhea, unspecified (2) Severe malnutrition Code(s): E43 - UNSPECIFIED SEVERE PROTEIN-CALORIE MALNUTRITION (3) AAA (abdominal aortic aneurysm) Code(s): I71.4 - ABDOMINAL AORTIC ANEURYSM, WITHOUT RUPTURE Qualifiers: Presence of rupture: without rupture Qualified Code(s): I71.4 - Abdominal aortic aneurysm, without rupture (4) Afib Code(s): I48.91 - UNSPECIFIED ATRIAL FIBRILLATION Qualifiers: Atrial fibrillation type: chronic Qualified Code(s): I48.2 - Chronic atrial fibrillation (5) HTN (hypertension) Code(s): I10 - ESSENTIAL (PRIMARY) HYPERTENSION Qualifiers: Hypertension type: essential hypertension Qualified Code(s): I10 - Essential (primary) hypertension (6) Hyperthyroidism Code(s): E05.90 - THYROTOXICOSIS, UNSP WITHOUT THYROTOXIC CRISIS OR STORM (7) Parkinson disease Code(s): G20 - PARKINSON'S DISEASE (8) Peripheral vascular disease Code(s): I73.9 - PERIPHERAL VASCULAR DISEASE, UNSPECIFIED (9) Weakness Code(s): R53.1 - WEAKNESS
[2018-02-11] MEDS: NAPH,MB-DB/K PH,MBDB POWDER PACKET PO SCH ×3 (05:15→22:12)
[2018-02-11] MEDS: HEPARIN NA (PORCINE) 5,000 UNITS/ML 1ML VIAL SQ SCH ×3 (05:29→22:11)
[2018-02-11 07:30] LABS: BASO % 0.5 % (0-2.0); EOS % 0.5 % (0-4.5); HEMATOCRIT 30.8 % (32.4-45.2); HEMOGLOBIN 9.8 GM/dL (10.7-15.3); LYMPH % 19.2 % (8-40); MCH 32.7 pg (25.7-33.7); MCHC 31.7 g/dl (32.0-36.0); MEAN CELL VOLUME 103.3 fl (80-96); MEAN PLT VOLUME 6.7 fl (7.5-11.1); MONO % 8.9 % (3.8-10.2); NEUT % 70.9 % (42.8-82.8); PLATELET COUNT 380 K/MM3 (134-434); RBC 2.98 M/mm3 (3.60-5.2); RDW 16.4 % (11.6-15.6); WHITE BLOOD COUNT 10.3 K/mm3 (4.0-10.0)
[2018-02-11 08:38] LABS: ALBUMIN 1.9 g/dl (3.4-5.0); ALK PHOS 90 U/L (45-117); ANION GAP 10 MMOL/L (8-16); BILIRUBIN,TOTAL 0.4 mg/dL (0.2-1); BLOOD UREA NITROGEN 9 mg/dL (7-18); CALCIUM 8.3 mg/dL (8.5-10.1); CHLORIDE 100 mmol/L (98-107); CO2 24 mmol/L (21-32); CREATININE 0.6 mg/dL (0.55-1.3); GLUCOSE,RANDOM 72 mg/dL (74-106); POTASSIUM 3.7 mmol/L (3.5-5.1); SGOT/AST 24 U/L (15-37); SGPT/ALT 13 U/L (13-61); SODIUM 134 mmol/L (136-145); TOT PROT 7.4 g/dl (6.4-8.2)
--- NOTE | 2018-02-11 09:18 | CON.CARD ---
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 recently admitted with afib, diarrhea. no chest pain, palps, dizzy, lightheadedness, edema, dyspnea. this morning no chest pain, dyspnea, orthopnea , PND, edema. no diarrhea this morning, has not been eating much - Past Medical History LEACHER: Yes: Other (Dystonia) Cardio/Vascular: Yes: AFIB, HTN Gastrointestinal: Yes: Other (sbo, AAA, cdiff colitis) Psych: Yes: Anxiety Endocrine: Yes: Hyperthyroidism - Past Surgical History Past Surgical History: Yes: None, Amputation (left 2nd, 3rd phalanges), Stent ( lle) - Alcohol/Substance Use Hx Alcohol Use: No History of Substance Use: reports: None - Smoking History Smoking history: Unknown if ever smoked Have you smoked in the past 12 months: Yes Aproximately how many cigarettes per day: 5 If you are a former smoker, when did you quit?: august 2016 - Social History ADL: Support Services 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 [employer] History of Recent Travel: No Home Medications - Allergies Allergies/Adverse Reactions: Allergies Allergy/AdvReac Type Severity Reaction Status Date / Time aspirin Allergy Verified 02/08/18 14:19 Penicillins Allergy Verified 02/08/18 14:19 - Home Medications Home Medications Medication Instructions Recorded Acetaminophen 650 mg PO QID 11/25/17 Acetaminophen W/ Codeine #3 1 tab PO TID 11/25/17 [Tylenol # 3 -] Amantadine HCl [Amantadine] 100 mg PO DAILY 11/25/17 Carbidopa/Levodopa [Rytary ER 1 each PO BID 11/25/17 36.25 mg-145 mg Cap] Clopidogrel Bisulfate [Plavix] 75 mg PO DAILY 11/25/17 Diltiazem Cd [Cardizem Cd -] 180 mg PO DAILY 11/25/17 Lactobacillus Acidophilus 1 each PO DAILY 11/25/17 [Acidophilus] Multivit-Min/Iron Fum/Folic AC 1 each PO DAILY 11/25/17 [Draqc-Lhcbohq-Ehqvflcg Tablet] Potassium Chloride [K-Dur -] 20 meq PO DAILY 11/25/17 Propranolol HCl 60 mg PO TID 11/25/17 Sodium,Potassium Phosphates 1 each PO TID 11/25/17 [Phos-Nak Packet] Amino Acids/Protein Hydrolys 30 ml PO BID@0800,1730 packet 12/01/17 [Prosource No Carb Liquid Pkt] Magnesium Chloride [Slow-Mag -] 128 mg PO DAILY tablet.sa 12/01/17 Methimazole [Tapazole -] 20 mg PO Q12H tablet 12/01/17 Digoxin [Lanoxin -] 0.125 mg PO DAILY 12/18/17 Gabapentin [Neurontin -] 100 mg PO Q12H 12/18/17 Ferrous Sulfate 325 mg PO DAILY 02/08/18 Potassium Chloride 20 meq PO DAILY 02/08/18 Family Disease History - Family Disease History Family History: Unremarkable Review of Systems - Review of Systems Constitutional: reports: Weakness Eyes: reports: No Symptoms HENT: reports: No Symptoms Neck: reports: No Symptoms Cardiovascular: reports: Palpitations, Shortness of Breath Respiratory: reports: No Symptoms Gastrointestinal: reports: No Symptoms Genitourinary: reports: No Symptoms Musculoskeletal: reports: No Symptoms Integumentary: reports: No Symptoms Neurological: reports: No Symptoms Endocrine: reports: No Symptoms Hematology/Lymphatic: reports: No Symptoms Psychiatric: reports: No Symptoms Vital Signs: Vital Signs Period Temp Pulse Resp BP Sys/Watkins Pulse Ox Last 24 Hr 97.9 F-98.6 F 76-110 18-18 118-130/62-84 Constitutional: Yes: Well Nourished, No Distress, Calm Eyes: Yes: Conjunctiva Clear, EOM Intact HENT: Yes: Atraumatic, Normocephalic Neck: Yes: Supple, Trachea Midline Respiratory: Yes: Regular, CTA Bilaterally Gastrointestinal: Yes: Normal Bowel Sounds, Soft Cardiovascular: Yes: Pulse Irregular JVD: No Heart Sounds: Yes: S1, S2 Musculoskeletal: Yes: WNL Extremities: Yes: WNL Edema: No Peripheral Pulses: 2+ Left Doralis Pedis, 2+ Right Dorsalis Pedis Integumentary: Yes: WNL Neurological: Yes: Alert, Oriented ...Motor Strength: WNL Psychiatric: Yes: Alert, Oriented - Other Data Labs, Other Data: Laboratory Last Values WBC 10.3 K/mm3 (4.0-10.0) H 02/11/18 06:30 RBC 2.98 M/mm3 (3.60-5.2) L 02/11/18 06:30 Hgb 9.8 GM/dL (10.7-15.3) L 02/11/18 06:30 Hct 30.8 % (32.4-45.2) L 02/11/18 06:30 MCV 103.3 fl (80-96) H 02/11/18 06:30 MCH 32.7 pg (25.7-33.7) 02/11/18 06:30 MCHC 31.7 g/dl (32.0-36.0) L 02/11/18 06:30 RDW 16.4 % (11.6-15.6) H 02/11/18 06:30 Plt Count 380 K/MM3 (134-434) 02/11/18 06:30 MPV 6.7 fl (7.5-11.1) L 02/11/18 06:30 Absolute Neuts (auto) 7.3 K/mm3 (1.5-8.0) 02/11/18 06:30 Neutrophils % 70.9 % (42.8-82.8) 02/11/18 06:30 Lymphocytes % 19.2 % (8-40) 02/11/18 06:30 Monocytes % 8.9 % (3.8-10.2) 02/11/18 06:30 Eosinophils % 0.5 % (0-4.5) D 02/11/18 06:30 Basophils % 0.5 % (0-2.0) 02/11/18 06:30 Nucleated RBC % 0 % (0-0) 02/11/18 06:30 PT with INR 13.40 SEC (9.7-13.0) H 02/08/18 15:30 INR 1.13 (0.83-1.09) H 02/08/18 15:30 PTT (Actin FS) 26.7 SECONDS (25.2-36.5) 02/08/18 15:30 Sodium 134 mmol/L (136-145) L 02/11/18 06:30 Potassium 3.7 mmol/L (3.5-5.1) 02/11/18 06:30 Chloride 100 mmol/L (98-107) 02/11/18 06:30 Carbon Dioxide 24 mmol/L (21-32) 02/11/18 06:30 Anion Gap 10 MMOL/L (8-16) 02/11/18 06:30 BUN 9 mg/dL (7-18) 02/11/18 06:30 Creatinine 0.6 mg/dL (0.55-1.3) 02/11/18 06:30 Creat Clearance w eGFR > 60 (>60) 02/11/18 06:30 Random Glucose 72 mg/dL (74-106) L 02/11/18 06:30 Lactic Acid 1.4 mmol/L (0.4-2.0) 02/08/18 15:30 Calcium 8.3 mg/dL (8.5-10.1) L 02/11/18 06:30 Phosphorus 3.0 mg/dL (2.5-4.9) 02/09/18 06:30 Magnesium 1.7 mg/dL (1.8-2.4) L 02/09/18 06:30 Total Bilirubin 0.4 mg/dL (0.2-1) 02/11/18 06:30 AST 24 U/L (15-37) 02/11/18 06:30 ALT 13 U/L (13-61) 02/11/18 06:30 Alkaline Phosphatase 90 U/L (45-117) 02/11/18 06:30 Total Protein 7.4 g/dl (6.4-8.2) 02/11/18 06:30 Albumin 1.9 g/dl (3.4-5.0) L 02/11/18 06:30 Vitamin B12 437 pg/ml (193-986) 02/09/18 06:30 Serum Folate 10 ng/mL (3.1-17.5) 02/09/18 06:30 TSH 2.49 uIU/ml (0.358-3.74) 02/09/18 06:30 Urine Color Dkyellow 02/08/18 15:30 Urine Appearance Clear 02/08/18 15:30 Urine pH 6.0 (5.0-8.0) 02/08/18 15:30 Ur Specific [place] 1.023 (1.010-1.035) 02/08/18 15:30 Urine Protein Negative (NEGATIVE) 02/08/18 15:30 Urine Glucose (UA) Negative (NEGATIVE) 02/08/18 15:30 Urine Ketones Trace (NEGATIVE) H 02/08/18 15:30 Urine Blood Negative (NEGATIVE) 02/08/18 15:30 Urine Nitrite Negative (NEGATIVE) 02/08/18 15:30 Urine Bilirubin Negative (<2.0 mg/dL) 02/08/18 15:30 Urine Urobilinogen Negative mg/dL (0.2-1.0) 02/08/18 15:30 Ur Leukocyte Esterase Trace (NEGATIVE) 02/08/18 15:30 Urine WBC (Auto) 31 /hpf (3-5) 02/08/18 15:30 Urine RBC (Auto) 3 /hpf (0-3) 02/08/18 15:30 Ur Epithelial Cells Rare /HPF (FEW) 02/08/18 15:30 Urine Bacteria Rare /hpf (NONE SEEN) 02/08/18 15:30 Urine Mucus Rare 02/08/18 15:30 Stool Occult Blood Negative (NEGATIVE) 02/08/18 16:36 Digoxin 0.68 ng/ml (0.8-2.0) L 02/09/18 06:30 Blood Type A POSITIVE 02/08/18 15:30 Antibody Screen Negative 02/08/18 15:30 EKG: afib, rate 57 bpm Assessment/Plan 72F smoker with h/o of htn, frequent falls, parkinsons/dystonia, pvd 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 and chronic LLE wound, AAA (4.7 cm), prior heavy etoh use prior hand etcher CA s/p chemo/xrt, anxiety who presents with colitis prepreop evaluation for EGD/colonoscopy, colitis, h/o C diff - GI following, with plan for EGD/colonoscopy - currently rate controlled, stable from cardiac perspective - no cardiac contraindication to EGD/colonoscopy, may proceed as planned - patient taking plavix at [place], did not receive today, may hold as needed for procedure afib - was on propranolol 60 mg TID, diltiazem 180 mg, digoxin with rate controlled - propranolol stopped due to possible contribution to diarrhea - has had multiple admissions with afib with RVR, may not tolerate. observe HR - not on AC due to risk of falls, was on clopidogrel monotherapy (asa allergy), holding currently for procedure Hyperthyroidism - on tapazole, holding propranolol as it may contribute to diarrhea - manage per primary team htn - controlled/low - cont current meds for rate control pvd/AAA/+ tobacco - on plavix outpatient, not on statin, will defer to outpatient md's. - smoking cessation
[2018-02-11] MEDS: AMINO ACIDS/PROTEIN HYDROLYS 30 ML LIQUID.PKT PO SCH ×2 (09:38→18:11)
[2018-02-11] MEDS ORDERED: PT OWN MED DRAWER 7, Y5N ONE ×2 (10:01→22:07)
[2018-02-11] MEDS: CLOPIDOGREL BISULFATE 75 MG TABLET (FP) PO SCH (10:21)
[2018-02-11] MEDS: FERROUS SO4 325 MG TABLET (FP) PO SCH (10:21)
[2018-02-11] MEDS: LACTOBACILLUS ACIDOPHILUS 1 TABLET PO SCH (10:21)
[2018-02-11] MEDS: GABAPENTIN 100 MG CAPSULE (FP) PO SCH ×2 (10:21→22:12)
[2018-02-11] MEDS: DIGOXIN 0.125 MG TABLET (FP) PO SCH (10:21)
[2018-02-11] MEDS: MULTIVITAMINS THER W-MINERALS COMBO TABLET (FP) PO SCH (10:22)
[2018-02-11] MEDS: METHIMAZOLE 10 MG TABLET (FP) PO SCH ×2 (10:22→22:12)
[2018-02-11] MEDS: AMANTADINE HCL 100 MG TABLET PO SCH (10:22)
--- NOTE | 2018-02-11 10:33 | PN ---
Progress Note, Physician History of Present Illness: patient stable colonoscopy today - Current Medication List Current Medications: Active Medications Amantadine HCl (Symmetrel -) 100 mg PO DAILY [facility] Last Admin: 02/11/18 10:22 Dose: 100 mg Amino Acids (Prosource No Carb Liquid Pkt) 30 ml PO BID@0800,1730 [facility] Last Admin: 02/11/18 09:38 Dose: Not Given Clopidogrel Bisulfate (Plavix -) 75 mg PO DAILY [facility] Last Admin: 02/11/18 10:21 Dose: Not Given Digoxin (Lanoxin -) 0.125 mg PO DAILY [facility] Last Admin: 02/11/18 10:21 Dose: 0.125 mg Diltiazem HCl (Cardizem Cd -) 180 mg PO DAILY [facility] Last Admin: 02/11/18 10:21 Dose: 180 mg Ferrous Sulfate (Feosol -) 325 mg PO DAILY [facility] Last Admin: 02/11/18 10:21 Dose: Not Given Gabapentin (Neurontin -) 100 mg PO BID [facility] Last Admin: 02/11/18 10:21 Dose: Not Given Heparin Sodium (Porcine) (Heparin -) 5,000 unit SQ TID [facility] Last Admin: 02/11/18 05:29 Dose: 5,000 unit Lactobacillus Acidophilus (Bacid -) 1 tab PO DAILY [facility] Last Admin: 02/11/18 10:21 Dose: Not Given Methimazole (Tapazole -) 20 mg PO BID [facility] Last Admin: 02/11/18 10:22 Dose: Not Given Multivitamins/Minerals (Theragran-M) 1 each PO DAILY [facility] Last Admin: 02/11/18 10:22 Dose: Not Given Non-Formulary Medication (Carbidopa/Levodopa [Rytary Er 36.25 Mg-145 Mg Cap]) 1 each PO BID [facility] Potassium Phos/Sodium Phos (Phos-Nak Packet -) 1 packet PO TID [facility] Last Admin: 02/11/18 05:15 Dose: Not Given - Objective Vital Signs: Vital Signs Temperature 98.6 F 02/11/18 06:00 Pulse Rate 86 02/11/18 10:21 Respiratory Rate 18 02/11/18 06:00 Blood Pressure 118/62 02/11/18 06:00 O2 Sat by Pulse Oximetry (%) 96 02/09/18 20:48 Constitutional: Yes: No Distress, Calm Cardiovascular: Yes: Regular Rate and Rhythm Respiratory: Yes: Regular, CTA Bilaterally Gastrointestinal: Yes: Normal Bowel Sounds, Soft Musculoskeletal: Yes: WNL Extremities: Yes: WNL Neurological: Yes: Alert Psychiatric: Yes: Alert Labs: CBC, BMP 02/11/18 06:30 02/11/18 06:30 INR, PTT INR 1.13 (0.83-1.09) H 02/08/18 15:30 Assessment/Plan weakness dirrhoea cdiff history plan fluid replacement continue monitoring plan for colonoscopy rest as per the team
--- NOTE | 2018-02-11 16:23 | PN ---
Physical Exam: SUBJECTIVE: Patient seen and examined at bedside. No overnight events. No new complaints. Continues to have loose stools unchanged. Denies CP, MENJIVAR, SOB, nausea or vomiting. OBJECTIVE: Vital Signs Period Temp Pulse Resp BP Sys/Watkins Pulse Ox Last 24 Hr 97.3 F-98.6 F 84-110 18-20 99-130/57-84 95-99 GENERAL: awake and alert, thin a frail, NAD LUNGS: CTAB, no wheezes, no crackles, no accessory muscle use. HEART: RRR, S1, S2 without murmur, rub or gallop. ABDOMEN: Soft, nontender, nondistended, normoactive bowel sounds, no guarding, no rebound, no hepatosplenomegaly, no masses. EXTREMITIES: 2+ pulses, warm, well-perfused, no edema. NEUROLOGICAL: Cranial nerves II through XII grossly intact. Normal speech, gait not observed. PSYCH: Normal mood, normal affect. SKIN: Warm, dry, normal turgor, no rashes or lesions noted Laboratory Results - last 24 hr 02/11/18 02/11/18 06:30 06:30 WBC 10.3 H RBC 2.98 L Hgb 9.8 L Hct 30.8 L MCV 103.3 H MCH 32.7 MCHC 31.7 L RDW 16.4 H Plt Count 380 MPV 6.7 L Absolute Neuts (auto) 7.3 Neutrophils % 70.9 Lymphocytes % 19.2 Monocytes % 8.9 Eosinophils % 0.5 D Basophils % 0.5 Nucleated RBC % 0 Sodium 134 L Potassium 3.7 Chloride 100 Carbon Dioxide 24 Anion Gap 10 BUN 9 Creatinine 0.6 Creat Clearance w eGFR > 60 Random Glucose 72 L Calcium 8.3 L Total Bilirubin 0.4 AST 24 ALT 13 Alkaline Phosphatase 90 Total Protein 7.4 Albumin 1.9 L Active Medications Generic Name Dose Route Start Last Admin Trade Name Freq PRN Reason Stop Dose Admin Amantadine HCl 100 mg 02/09/18 10:00 02/11/18 10:22 Symmetrel - PO 100 mg DAILY [facility] Administration Amino Acids 30 ml 02/09/18 08:00 02/11/18 09:38 Prosource No Carb Liquid Pkt PO Not Given BID@0800,1730 [facility] Clopidogrel Bisulfate 75 mg 02/09/18 10:00 02/11/18 10:21 Plavix - PO Not Given DAILY [facility] Digoxin 0.125 mg 02/09/18 10:00 02/11/18 10:21 Lanoxin - PO 0.125 mg DAILY [facility] Administration Diltiazem HCl 180 mg 02/09/18 10:00 02/11/18 10:21 Cardizem Cd - PO 180 mg DAILY [facility] Administration Ferrous Sulfate 325 mg 02/09/18 10:00 02/11/18 10:21 Feosol - PO Not Given DAILY [facility] Gabapentin 100 mg 02/09/18 10:00 02/11/18 10:21 Neurontin - PO Not Given BID [facility] Heparin Sodium (Porcine) 5,000 unit 02/09/18 06:00 02/11/18 14:12 Heparin - SQ Not Given TID [facility] Lactobacillus Acidophilus 1 tab 02/09/18 10:00 02/11/18 10:21 Bacid - PO Not Given DAILY [facility] Methimazole 20 mg 02/09/18 10:00 02/11/18 10:22 Tapazole - PO Not Given BID [facility] Multivitamins/Minerals 1 each 02/09/18 10:00 02/11/18 10:22 Theragran-M PO Not Given DAILY [facility] Non-Formulary Medication 1 each 02/09/18 10:00 Carbidopa/Levodopa [Rytary Er 36.25 Mg-145 Mg Cap] PO BID [facility] Potassium Phos/Sodium Phos 1 packet 02/09/18 06:00 02/11/18 14:12 Phos-Nak Packet - PO Not Given TID [facility] ASSESSMENT/PLAN: 72F smoker with h/o of htn, frequent falls, parkinsons/dystonia, pvd 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 and chronic LLE wound, AAA (4.7 cm), prior heavy etoh use prior crank hand CA s/p chemo/xrt, anxiety who presents with colitis Problem List - Problems (1) Colitis Assessment/Plan: * stool studies show Cdiff Ag and toxin negative. * GI consult appreciated * trial stopping magnesium, potassium, and propanolol * Pre-op eval for EGD and colonoscopy (2) Diarrhea (3) Afib Assessment/Plan: * Digoxin (Lanoxin -) 0.125 mg PO DAILY * Diltiazem HCl (Cardizem Cd -) 180 mg PO DAILY (4) HTN (hypertension) (5) Hyperthyroidism (6) Parkinson disease Assessment/Plan: * Amantadine HCl (Symmetrel -) 100 mg PO DAILY * Carbidopa/Levodopa [Rytary Er 36.25 Mg-145 Mg Cap]) 1 each PO BID [facility] (7) Peripheral vascular disease Assessment/Plan: hold plavix (8) Weakness Visit type - Emergency Visit Emergency Visit: Yes ED Registration Date: 02/08/18 Care time: The patient presented to the Emergency Department on the above date and was hospitalized for further evaluation of their emergent condition. - New Patient This patient is new to me today: No - Critical Care Critical Care patient: No
--- NOTE | 2018-02-11 16:59 | PN ---
Teaching Attending Note Name of Resident: Pete Rod ATTENDING PHYSICIAN STATEMENT I saw and evaluated the patient. I reviewed the resident's note and discussed the case with the resident. I agree with the resident's findings and plan as documented. SUBJECTIVE: Feels better. No active complaints. OBJECTIVE: Remains comfortable. Abd soft NT ND ASSESSMENT AND PLAN: Agree with a/p by resident. S/p COLONOSCOPY . Advance the diet as tolerated. Plan d/w patient at bedside/.
[2018-02-12] MEDS: HEPARIN NA (PORCINE) 5,000 UNITS/ML 1ML VIAL SQ SCH ×3 (06:03→22:29)
[2018-02-12] MEDS: NAPH,MB-DB/K PH,MBDB POWDER PACKET PO SCH (06:03)
[2018-02-12 08:19] LABS: BASO % 0.4 % (0-2.0); EOS % 0.7 % (0-4.5); HEMATOCRIT 28.7 % (32.4-45.2); HEMOGLOBIN 9.1 GM/dL (10.7-15.3); LYMPH % 23.3 % (8-40); MCH 32.7 pg (25.7-33.7); MCHC 31.8 g/dl (32.0-36.0); MEAN CELL VOLUME 102.9 fl (80-96); MEAN PLT VOLUME 6.5 fl (7.5-11.1); MONO % 7.3 % (3.8-10.2); NEUT % 68.3 % (42.8-82.8); PLATELET COUNT 403 K/MM3 (134-434); RBC 2.79 M/mm3 (3.60-5.2); RDW 16.2 % (11.6-15.6); WHITE BLOOD COUNT 8.7 K/mm3 (4.0-10.0)
[2018-02-12] MEDS: AMINO ACIDS/PROTEIN HYDROLYS 30 ML LIQUID.PKT PO SCH (08:19)
[2018-02-12 08:37] LABS: ALBUMIN 1.7 g/dl (3.4-5.0); ALK PHOS 84 U/L (45-117); ANION GAP 6 MMOL/L (8-16); BILIRUBIN,TOTAL 0.4 mg/dL (0.2-1); BLOOD UREA NITROGEN 9 mg/dL (7-18); CALCIUM 7.9 mg/dL (8.5-10.1); CHLORIDE 100 mmol/L (98-107); CO2 28 mmol/L (21-32); CREATININE 0.7 mg/dL (0.55-1.3); GLUCOSE,RANDOM 70 mg/dL (74-106); POTASSIUM 3.6 mmol/L (3.5-5.1); SGOT/AST 14 U/L (15-37); SGPT/ALT 11 U/L (13-61); SODIUM 135 mmol/L (136-145); TOT PROT 6.7 g/dl (6.4-8.2)
--- NOTE | 2018-02-12 08:55 | PN ---
GI Progress Note Subjective: No acute events Dr. Ferris advised me that she found colitis on flex sig No copious diarrhea reported - Objective Vital Signs: Vital Signs Temperature 98.1 F 02/12/18 06:00 Pulse Rate 97 H 02/12/18 06:00 Respiratory Rate 18 02/12/18 06:00 Blood Pressure 99/53 L 02/12/18 06:00 O2 Sat by Pulse Oximetry (%) 98 02/11/18 21:00 Constitutional: Calm Eyes: No: Sclera Icterus Cardiovascular: Yes: Regular Rate and Rhythm Respiratory: Yes: CTA Bilaterally Gastrointestinal Inspection: No: Distention ...Auscultate: Yes: Normoactive Bowel Sounds ...Palpate: No: Hepatomegaly, Splenomegaly, Tenderness Edema: No (No LE edema) Labs: CBC, BMP 02/12/18 06:30 02/12/18 06:30 INR, PTT INR 1.13 (0.83-1.09) H 02/08/18 15:30 Hepatic Panel Total Bilirubin 0.4 mg/dL (0.2-1) 02/12/18 06:30 AST 14 U/L (15-37) L 02/12/18 06:30 ALT 11 U/L (13-61) L 02/12/18 06:30 Alkaline Phosphatase 84 U/L (45-117) 02/12/18 06:30 Albumin 1.7 g/dl (3.4-5.0) L 02/12/18 06:30 Problem List - Problems (1) Diarrhea Assessment/Plan: Colitis noted on flex sig Will review flex sig images Continue current care Continue medication elimination as feasible Code(s): R19.7 - DIARRHEA, UNSPECIFIED Qualifiers: Diarrhea type: unspecified type Qualified Code(s): R19.7 - Diarrhea, unspecified
--- NOTE | 2018-02-12 09:09 | PN ---
Teaching Attending Note Name of Resident: Pete Rod ATTENDING PHYSICIAN STATEMENT I saw and evaluated the patient. I reviewed the resident's note and discussed the case with the resident. I agree with the resident's findings and plan as documented. SUBJECTIVE:conintues to have diffuse abdominal pain but improved. states she had 1 loose BM today. tolerating liquid diet. denies Cp, SOB, fever, chills, N/V /C/D OBJECTIVE: Last Vital Signs Temp Pulse Resp BP Pulse Ox 98.1 F 97 H 18 99/53 L 98 02/12/18 06:00 02/12/18 06:00 02/12/18 06:00 02/12/18 06:00 02/11/18 21:00 GeneralNAD, thin appearing female CV S1 S2 RRR no murmur/rub/gallop Lungs CTA B/L no wheezing/rales/rhonchi ABdomen soft NT/ND ASSESSMENT AND PLAN: 72 y/o female with a history of parkinsons, c. diff, afib, and AAA who presents for diarrhea and weakness and found to have cdifff colitis 1. Acute Colitis with recent treatment for cdiff- clinically improved. s/p sigmoidoscopy 02/11. diet advance to full liquids. will advance as tolerated. leukocytosis resolved. cdiff here is negative. will ocnt to monitor off abx. advance diet as tolerated. continue to eliminate meds that can worsen diarrhea. will d/c neutraphos as this can also cause diarrhea. monitor for resolution of diarrhea. will likely require full colonoscopy in 6-8weeks. ID and GI on board 2. afib not on anticoagulation- asa allergy. will re-start plavix. cont rate control. (propanolol now d/c as possible contributing to diarrhea) 3. PVD- re-start plavix 4. AAA- periodic surveillance 5. Hyperthyroid- TSH WNL. cont methimazole 6. parkinson 7. DVT ppx- hep sq 8. pt very unstable ambulating. PT eval tomorrow to see if requires WANDER on discharge.
[2018-02-12] MEDS ORDERED: PT OWN MED DRAWER 7, Y5N ONE ×2 (09:25→20:17)
[2018-02-12] MEDS: LACTOBACILLUS ACIDOPHILUS 1 TABLET PO SCH (09:36)
[2018-02-12] MEDS: MULTIVITAMINS THER W-MINERALS COMBO TABLET (FP) PO SCH (09:36)
[2018-02-12] MEDS: FERROUS SO4 325 MG TABLET (FP) PO SCH (09:36)
[2018-02-12] MEDS: DIGOXIN 0.125 MG TABLET (FP) PO SCH (09:36)
[2018-02-12] MEDS: GABAPENTIN 100 MG CAPSULE (FP) PO SCH ×2 (09:37→22:30)
[2018-02-12] MEDS: AMANTADINE HCL 100 MG TABLET PO SCH (09:37)
[2018-02-12] MEDS: METHIMAZOLE 10 MG TABLET (FP) PO SCH ×2 (09:37→22:30)
--- NOTE | 2018-02-12 10:43 | PN ---
Progress Note, Physician Chief Complaint: diarrhea History of Present Illness: diarrhea much less no palpit, cp, sob - Current Medication List Current Medications: Active Medications Amantadine HCl (Symmetrel -) 100 mg PO DAILY [facility] Last Admin: 02/12/18 09:37 Dose: 100 mg Amino Acids (Prosource No Carb Liquid Pkt) 30 ml PO BID@0800,1730 [facility] Last Admin: 02/12/18 08:19 Dose: 30 ml Clopidogrel Bisulfate (Plavix -) 75 mg PO DAILY [facility] Digoxin (Lanoxin -) 0.125 mg PO DAILY [facility] Last Admin: 02/12/18 09:36 Dose: 0.125 mg Diltiazem HCl (Cardizem Cd -) 180 mg PO DAILY [facility] Last Admin: 02/12/18 09:36 Dose: 180 mg Ferrous Sulfate (Feosol -) 325 mg PO DAILY [facility] Last Admin: 02/12/18 09:36 Dose: 325 mg Gabapentin (Neurontin -) 100 mg PO BID [facility] Last Admin: 02/12/18 09:37 Dose: 100 mg Heparin Sodium (Porcine) (Heparin -) 5,000 unit SQ TID [facility] Last Admin: 02/12/18 06:03 Dose: 5,000 unit Lactobacillus Acidophilus (Bacid -) 1 tab PO DAILY [facility] Last Admin: 02/12/18 09:36 Dose: 1 tab Methimazole (Tapazole -) 20 mg PO BID [facility] Last Admin: 02/12/18 09:37 Dose: 20 mg Multivitamins/Minerals (Theragran-M) 1 each PO DAILY [facility] Last Admin: 02/12/18 09:36 Dose: 1 each Non-Formulary Medication (Carbidopa/Levodopa [Rytary Er 36.25 Mg-145 Mg Cap]) 1 each PO BID [facility] - Objective Vital Signs: Vital Signs Temperature 98.1 F 02/12/18 06:00 Pulse Rate 109 H 02/12/18 09:36 Respiratory Rate 18 02/12/18 06:00 Blood Pressure 99/53 L 02/12/18 06:00 O2 Sat by Pulse Oximetry (%) 98 02/11/18 21:00 Constitutional: Yes: Well Nourished, No Distress, Calm Cardiovascular: Yes: Pulse Irregular, S1, S2. No: Gallop, Murmur Respiratory: Yes: Regular, CTA Bilaterally. No: Accessory Muscle Use Extremities: No: Cold Edema: No Neurological: Yes: Alert. 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 ileus related to high dose diltiazem then--dose decr'd at that time - propranolol held here due to possible contribution to diarrhea - thus far HR remains controlled - cont diltiazem, dig as doing (dig level good) - will d/w GI if propranolol suspected contributor to diarrhea in light of flex sig colitis findings--if HR rises again, ? can retry lower dose or alternate BB and observe for recurrent diarrhea - would have to consider amiodarone or AVN ablation with PPM if cannot control HR with AVN zee regimen that avoids signif toxicity to her - not on AC due to risk of falls, was on clopidogrel monotherapy (asa allergy), holding currently for procedure Hyperthyroidism - on tapazole, holding propranolol as it may contribute to diarrhea - manage per primary team htn - controlled/low - cont current meds for rate control pvd/AAA/+ tobacco - on plavix outpatient, not on statin, will defer to outpatient md's. - smoking cessation counselled, CV benefits reviewed
[2018-02-12] MEDS: CLOPIDOGREL BISULFATE 75 MG TABLET (FP) PO SCH (11:37)
--- NOTE | 2018-02-12 14:03 | PN ---
Progress Note, Physician History of Present Illness: patient still having loose bm smelling - Current Medication List Current Medications: Active Medications Amantadine HCl (Symmetrel -) 100 mg PO DAILY [facility] Last Admin: 02/12/18 09:37 Dose: 100 mg Amino Acids (Prosource No Carb Liquid Pkt) 30 ml PO BID@0800,1730 [facility] Last Admin: 02/12/18 08:19 Dose: 30 ml Clopidogrel Bisulfate (Plavix -) 75 mg PO DAILY [facility] Last Admin: 02/12/18 11:37 Dose: 75 mg Digoxin (Lanoxin -) 0.125 mg PO DAILY [facility] Last Admin: 02/12/18 09:36 Dose: 0.125 mg Diltiazem HCl (Cardizem Cd -) 180 mg PO DAILY [facility] Last Admin: 02/12/18 09:36 Dose: 180 mg Ferrous Sulfate (Feosol -) 325 mg PO DAILY [facility] Last Admin: 02/12/18 09:36 Dose: 325 mg Gabapentin (Neurontin -) 100 mg PO BID [facility] Last Admin: 02/12/18 09:37 Dose: 100 mg Heparin Sodium (Porcine) (Heparin -) 5,000 unit SQ TID [facility] Last Admin: 02/12/18 13:10 Dose: Not Given Lactobacillus Acidophilus (Bacid -) 1 tab PO DAILY [facility] Last Admin: 02/12/18 09:36 Dose: 1 tab Methimazole (Tapazole -) 20 mg PO BID [facility] Last Admin: 02/12/18 09:37 Dose: 20 mg Multivitamins/Minerals (Theragran-M) 1 each PO DAILY [facility] Last Admin: 02/12/18 09:36 Dose: 1 each Non-Formulary Medication (Carbidopa/Levodopa [Rytary Er 36.25 Mg-145 Mg Cap]) 1 each PO BID [facility] - Objective Vital Signs: Vital Signs Temperature 98.1 F 02/12/18 06:00 Pulse Rate 109 H 02/12/18 09:36 Respiratory Rate 18 02/12/18 06:00 Blood Pressure 99/53 L 02/12/18 06:00 O2 Sat by Pulse Oximetry (%) 98 02/11/18 21:00 Constitutional: Yes: No Distress, Calm Cardiovascular: Yes: Regular Rate and Rhythm Respiratory: Yes: Regular, CTA Bilaterally Gastrointestinal: Yes: Normal Bowel Sounds, Soft Musculoskeletal: Yes: WNL Extremities: Yes: WNL Neurological: Yes: Alert, Oriented Psychiatric: Yes: Alert, Oriented Labs: CBC, BMP 02/12/18 06:30 02/12/18 06:30 INR, PTT INR 1.13 (0.83-1.09) H 02/08/18 15:30 Assessment/Plan weakness dirrhoea cdiff history plan fluid replacement continue monitoring if patient continues to have dirrhoea might check cdiff again
--- NOTE | 2018-02-12 14:54 | PN ---
Physical Exam: SUBJECTIVE: Patient seen and examined at bedside. No overnight events. Continues to have some abdominal discomfort. Denies CP,MENJIVAR, SOB, nausea or vomiting. OBJECTIVE: Vital Signs Period Temp Pulse Resp BP Sys/Watkins Pulse Ox Last 24 Hr 97.3 F-98.1 F 94-109 18-20 99-117/53-64 96-98 GGENERAL: awake and alert, thin a frail, NAD LUNGS: CTAB, no wheezes, no crackles, no accessory muscle use. HEART: RRR, S1, S2 without murmur, rub or gallop. ABDOMEN: Soft, mild generalized tenderness , nondistended, normoactive bowel sounds, no guarding, no rebound, no hepatosplenomegaly, no masses. EXTREMITIES: 2+ pulses, warm, well-perfused, no edema. NEUROLOGICAL: Cranial nerves II through XII grossly intact. Normal speech, gait not observed. PSYCH: Normal mood, normal affect. SKIN: Warm, dry, normal turgor, no rashes or lesions noted Laboratory Results - last 24 hr 02/12/18 02/12/18 06:30 06:30 WBC 8.7 RBC 2.79 L Hgb 9.1 L Hct 28.7 L MCV 102.9 H MCH 32.7 MCHC 31.8 L RDW 16.2 H Plt Count 403 MPV 6.5 L Absolute Neuts (auto) 5.9 Neutrophils % 68.3 Lymphocytes % 23.3 D Monocytes % 7.3 Eosinophils % 0.7 Basophils % 0.4 Nucleated RBC % 0 Sodium 135 L Potassium 3.6 Chloride 100 Carbon Dioxide 28 Anion Gap 6 L BUN 9 Creatinine 0.7 Creat Clearance w eGFR > 60 Random Glucose 70 L Calcium 7.9 L Total Bilirubin 0.4 AST 14 L ALT 11 L Alkaline Phosphatase 84 Total Protein 6.7 Albumin 1.7 L Active Medications Generic Name Dose Route Start Last Admin Trade Name Freq PRN Reason Stop Dose Admin Amantadine HCl 100 mg 02/09/18 10:00 02/12/18 09:37 Symmetrel - PO 100 mg DAILY [facility]ANY Administration Amino Acids 30 ml 02/09/18 08:00 02/12/18 08:19 Prosource No Carb Liquid Pkt PO 30 ml BID@0800,1730 [facility] Administration Clopidogrel Bisulfate 75 mg 02/12/18 10:15 02/12/18 11:37 Plavix - PO 75 mg DAILY [facility] Administration Digoxin 0.125 mg 02/09/18 10:00 02/12/18 09:36 Lanoxin - PO 0.125 mg DAILY [facility] Administration Diltiazem HCl 180 mg 02/09/18 10:00 02/12/18 09:36 Cardizem Cd - PO 180 mg DAILY [facility] Administration Ferrous Sulfate 325 mg 02/09/18 10:00 02/12/18 09:36 Feosol - PO 325 mg DAILY [facility] Administration Gabapentin 100 mg 02/09/18 10:00 02/12/18 09:37 Neurontin - PO 100 mg BID [facility]ANY Administration Heparin Sodium (Porcine) 5,000 unit 02/09/18 06:00 02/12/18 13:10 Heparin - SQ Not Given TID MELANY Lactobacillus Acidophilus 1 tab 02/09/18 10:00 02/12/18 09:36 Bacid - PO 1 tab DAILY [facility] Administration Methimazole 20 mg 02/09/18 10:00 02/12/18 09:37 Tapazole - PO 20 mg BID [facility] Administration Multivitamins/Minerals 1 each 02/09/18 10:00 02/12/18 09:36 Theragran-M PO 1 each DAILY [facility] Administration Non-Formulary Medication 1 each 02/09/18 10:00 Carbidopa/Levodopa [Rytary Er 36.25 Mg-145 Mg Cap] PO BID 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 * advanced diet to liquids. * stool studies show Cdiff Ag and toxin negative. * GI consult appreciated * trial stopping magnesium, potassium, and propanolol * colonoscopy in 6-8 weeks as per GI. (2) Diarrhea (3) Afib Assessment/Plan: * Digoxin (Lanoxin -) 0.125 mg PO DAILY * Diltiazem HCl (Cardizem Cd -) 180 mg PO DAILY (4) HTN (hypertension) (5) Hyperthyroidism Assessment/Plan: propanolol held for diarrhea. * Methimazole (Tapazole -) 20 mg PO BID (6) Parkinson disease Assessment/Plan: * Amantadine HCl (Symmetrel -) 100 mg PO DAILY * Carbidopa/Levodopa [Rytary Er 36.25 Mg-145 Mg Cap]) 1 each PO BID [facility] (7) Peripheral vascular disease Assessment/Plan: hold plavix (8) Weakness Assessment/Plan: Physical therapy eval tomorrow. Visit type - Emergency Visit Emergency Visit: Yes ED Registration Date: 02/08/18 Care time: The patient presented to the Emergency Department on the above date and was hospitalized for further evaluation of their emergent condition. - New Patient This patient is new to me today: No - Critical Care Critical Care patient: No
[2018-02-13] MEDS: HEPARIN NA (PORCINE) 5,000 UNITS/ML 1ML VIAL SQ SCH ×3 (06:32→21:59)
[2018-02-13 07:54] LABS: BASO % 0.5 % (0-2.0); EOS % 0.5 % (0-4.5); HEMATOCRIT 29.3 % (32.4-45.2); HEMOGLOBIN 9.3 GM/dL (10.7-15.3); LYMPH % 23.4 % (8-40); MCH 32.4 pg (25.7-33.7); MCHC 31.6 g/dl (32.0-36.0); MEAN CELL VOLUME 102.5 fl (80-96); MEAN PLT VOLUME 6.4 fl (7.5-11.1); MONO % 8.4 % (3.8-10.2); NEUT % 67.2 % (42.8-82.8); PLATELET COUNT 336 K/MM3 (134-434); RBC 2.86 M/mm3 (3.60-5.2); RDW 16.3 % (11.6-15.6); WHITE BLOOD COUNT 7.6 K/mm3 (4.0-10.0)
[2018-02-13 08:22] LABS: ALBUMIN 1.7 g/dl (3.4-5.0); ALK PHOS 80 U/L (45-117); ANION GAP 7 MMOL/L (8-16); BILIRUBIN,TOTAL 0.3 mg/dL (0.2-1); BLOOD UREA NITROGEN 7 mg/dL (7-18); CALCIUM 7.7 mg/dL (8.5-10.1); CHLORIDE 103 mmol/L (98-107); CO2 27 mmol/L (21-32); CREATININE 0.6 mg/dL (0.55-1.3); GLUCOSE,RANDOM 67 mg/dL (74-106); POTASSIUM 3.5 mmol/L (3.5-5.1); SGOT/AST 11 U/L (15-37); SGPT/ALT 10 U/L (13-61); SODIUM 136 mmol/L (136-145); TOT PROT 6.9 g/dl (6.4-8.2)
--- NOTE | 2018-02-13 09:22 | PN ---
Progress Note, Physician History of Present Illness: patient still having loose bm smelling improving proctoscopy prelim report noted - Current Medication List Current Medications: Active Medications Amantadine HCl (Symmetrel -) 100 mg PO DAILY [facility] Last Admin: 02/12/18 09:37 Dose: 100 mg Amino Acids (Prosource No Carb Liquid Pkt) 30 ml PO BID@0800,1730 [facility] Last Admin: 02/12/18 08:19 Dose: 30 ml Clopidogrel Bisulfate (Plavix -) 75 mg PO DAILY [facility] Last Admin: 02/12/18 11:37 Dose: 75 mg Digoxin (Lanoxin -) 0.125 mg PO DAILY [facility] Last Admin: 02/12/18 09:36 Dose: 0.125 mg Diltiazem HCl (Cardizem Cd -) 180 mg PO DAILY [facility] Last Admin: 02/12/18 09:36 Dose: 180 mg Ferrous Sulfate (Feosol -) 325 mg PO DAILY [facility] Last Admin: 02/12/18 09:36 Dose: 325 mg Gabapentin (Neurontin -) 100 mg PO BID [facility] Last Admin: 02/12/18 22:30 Dose: 100 mg Heparin Sodium (Porcine) (Heparin -) 5,000 unit SQ TID [facility] Last Admin: 02/13/18 06:32 Dose: 5,000 unit Lactobacillus Acidophilus (Bacid -) 1 tab PO DAILY [facility] Last Admin: 02/12/18 09:36 Dose: 1 tab Methimazole (Tapazole -) 20 mg PO BID [facility] Last Admin: 02/12/18 22:30 Dose: 20 mg Multivitamins/Minerals (Theragran-M) 1 each PO DAILY [facility] Last Admin: 02/12/18 09:36 Dose: 1 each Non-Formulary Medication (Carbidopa/Levodopa [Rytary Er 36.25 Mg-145 Mg Cap]) 1 each PO BID [facility] - Objective Vital Signs: Vital Signs Temperature 98.5 F 02/13/18 06:00 Pulse Rate 90 02/13/18 06:00 Respiratory Rate 20 02/13/18 06:00 Blood Pressure 114/63 02/13/18 06:00 O2 Sat by Pulse Oximetry (%) 98 02/12/18 21:00 Constitutional: Yes: No Distress, Calm Cardiovascular: Yes: Regular Rate and Rhythm Respiratory: Yes: Regular, CTA Bilaterally Gastrointestinal: Yes: Normal Bowel Sounds, Soft, Other (dirrhoea) Musculoskeletal: Yes: WNL Extremities: Yes: WNL Neurological: Yes: Alert, Oriented Psychiatric: Yes: Alert, Oriented Labs: CBC, BMP 02/13/18 06:40 02/13/18 06:40 INR, PTT INR 1.13 (0.83-1.09) H 02/08/18 15:30 Assessment/Plan weakness dirrhoea cdiff history plan fluid replacement continue monitoring if patient continues to have dirrhoea if colitis report confirmed will start abx
--- NOTE | 2018-02-13 10:26 | PN ---
GI Progress Note Subjective: 2 small loose BM's yesterday. Diarrhea seems improved No abdominal pain - Objective Vital Signs: Vital Signs Temperature 98.5 F 02/13/18 06:00 Pulse Rate 90 02/13/18 06:00 Respiratory Rate 20 02/13/18 06:00 Blood Pressure 114/63 02/13/18 06:00 O2 Sat by Pulse Oximetry (%) 98 02/12/18 21:00 Constitutional: Calm Eyes: No: Sclera Icterus Cardiovascular: Yes: Pulse Irregular Respiratory: Yes: CTA Bilaterally Gastrointestinal Inspection: No: Distention ...Auscultate: Yes: Normoactive Bowel Sounds ...Palpate: No: Hepatomegaly, Splenomegaly, Tenderness Edema: No (No LE edema) Labs: CBC, BMP 02/13/18 06:40 02/13/18 06:40 INR, PTT INR 1.13 (0.83-1.09) H 02/08/18 15:30 Hepatic Panel Total Bilirubin 0.3 mg/dL (0.2-1) 02/13/18 06:40 AST 11 U/L (15-37) L 02/13/18 06:40 ALT 10 U/L (13-61) L 02/13/18 06:40 Alkaline Phosphatase 80 U/L (45-117) 02/13/18 06:40 Albumin 1.7 g/dl (3.4-5.0) L 02/13/18 06:40 Problem List - Problems (1) Diarrhea Assessment/Plan: Improved diarrhea Awaiting biopsy results from flex sig Medication elimination has been performed. Spoke with Dr. Castillo yesterday. If Ms. Wilson needs propranolol for rate controil then would restart Code(s): R19.7 - DIARRHEA, UNSPECIFIED Qualifiers: Diarrhea type: unspecified type Qualified Code(s): R19.7 - Diarrhea, unspecified
[2018-02-13] MEDS: LACTOBACILLUS ACIDOPHILUS 1 TABLET PO SCH (11:30)
[2018-02-13] MEDS: GABAPENTIN 100 MG CAPSULE (FP) PO SCH ×2 (11:30→21:59)
[2018-02-13] MEDS: AMINO ACIDS/PROTEIN HYDROLYS 30 ML LIQUID.PKT PO SCH ×2 (11:30→17:31)
[2018-02-13] MEDS: MULTIVITAMINS THER W-MINERALS COMBO TABLET (FP) PO SCH (11:30)
[2018-02-13] MEDS: CLOPIDOGREL BISULFATE 75 MG TABLET (FP) PO SCH (11:30)
[2018-02-13] MEDS: FERROUS SO4 325 MG TABLET (FP) PO SCH (11:30)
[2018-02-13] MEDS: METHIMAZOLE 10 MG TABLET (FP) PO SCH ×2 (11:31→21:58)
[2018-02-13] MEDS: AMANTADINE HCL 100 MG TABLET PO SCH (11:31)
[2018-02-13] MEDS: DIGOXIN 0.125 MG TABLET (FP) PO SCH (11:32)
--- NOTE | 2018-02-13 18:53 | PN ---
Teaching Attending Note Name of Resident: Pete Rod ATTENDING PHYSICIAN STATEMENT I saw and evaluated the patient. I reviewed the resident's note and discussed the case with the resident. I agree with the resident's findings and plan as documented. SUBJECTIVE: in no distress, no more diarrhea She is in no distress states that she is not in any distress at this time and has had no diarrhea anymore OBJECTIVE: She is in no distress talks with low tone A&OX3 mmm no ocualr discharge CVS:S1S2 CTAB Abd;BS+ NT/ND EXT: no edema Vital Signs Period Temp Pulse Resp BP Sys/Watkins Pulse Ox Last 24 Hr 97.9 F-98.3 F 55-107 18-20 112-126/60-63 OBJECTIVE: ASSESSMENT AND PLAN: She is a 72 y/o female with a history of parkinsons, c. diff, afib, and AAA who presents for diarrhea and weakness and found to have cdifff colitis 1. Acute Colitis with recent treatment for cdiff- clinically improved. s/p sigmoidoscopy 02/11. tolerating full diet. leukocytosis resolved. cdiff here is negative. will have full colonoscopy in 6-8weeks. ID and GI on board 2. afib not on anticoagulation- asa allergy. will re-start plavix. cont rate control on Diltiazem and digoxin (propanolol now d/c as possible contributing to diarrhea , if she becomes tachy will restart propranolol as per cardiology note there wsa concern due to her previous admissions in the past.) 3. PVD- re-start plavix 4. AAA- periodic surveillance 5. Hyperthyroid- TSH WNL. cont methimazole 6. parkinson: C.W home medication 7. DVT ppx- hep sq 8. pt very unstable ambulating. PT eval tomorrow to see if requires WANDER on discharge. 9) malnutrition: evlauated by nutrition , will start on po supplements, started on MV patient is ready to be DCed , will readdress on Friday with SW. Pain control with gabapentin Anemia: on po ferrous sulfate, will check retic count, Iron studies FC
[2018-02-13] MEDS ORDERED: PT OWN MED DRAWER 7, Y5N ONE (21:29)
[2018-02-14] MEDS: HEPARIN NA (PORCINE) 5,000 UNITS/ML 1ML VIAL SQ SCH ×3 (06:20→22:01)
--- NOTE | 2018-02-14 08:05 | PN ---
Progress Note, Physician Chief Complaint: no new complaints - Current Medication List Current Medications: Active Medications Amantadine HCl (Symmetrel -) 100 mg PO DAILY [facility] Last Admin: 02/13/18 11:31 Dose: 100 mg Amino Acids (Prosource No Carb Liquid Pkt) 30 ml PO BID@0800,1730 [facility] Last Admin: 02/13/18 17:31 Dose: 30 ml Clopidogrel Bisulfate (Plavix -) 75 mg PO DAILY [facility] Last Admin: 02/13/18 11:30 Dose: 75 mg Digoxin (Lanoxin -) 0.125 mg PO DAILY [facility] Last Admin: 02/13/18 11:32 Dose: 0.125 mg Diltiazem HCl (Cardizem Cd -) 180 mg PO DAILY [facility] Last Admin: 02/13/18 11:30 Dose: 180 mg Ferrous Sulfate (Feosol -) 325 mg PO DAILY [facility] Last Admin: 02/13/18 11:30 Dose: 325 mg Gabapentin (Neurontin -) 100 mg PO BID [facility] Last Admin: 02/13/18 21:59 Dose: 100 mg Heparin Sodium (Porcine) (Heparin -) 5,000 unit SQ TID [facility] Last Admin: 02/14/18 06:20 Dose: 5,000 unit Lactobacillus Acidophilus (Bacid -) 1 tab PO DAILY [facility] Last Admin: 02/13/18 11:30 Dose: 1 tab Methimazole (Tapazole -) 20 mg PO BID [facility] Last Admin: 02/13/18 21:58 Dose: 20 mg Multivitamins/Minerals (Theragran-M) 1 each PO DAILY [facility] Last Admin: 02/13/18 11:30 Dose: 1 each Non-Formulary Medication (Carbidopa/Levodopa [Rytary Er 36.25 Mg-145 Mg Cap]) 1 each PO BID [facility] - Objective Vital Signs: Vital Signs Temperature 98.3 F 02/14/18 07:57 Pulse Rate 100 H 02/14/18 07:57 Respiratory Rate 20 02/14/18 07:57 Blood Pressure 112/63 02/14/18 07:57 O2 Sat by Pulse Oximetry (%) 97 02/13/18 09:00 Constitutional: Yes: Well Nourished, No Distress, Calm Eyes: Yes: WNL HENT: Yes: WNL Neck: Yes: WNL Cardiovascular: Yes: Regular Rate and Rhythm Respiratory: Yes: Regular Gastrointestinal: Yes: WNL, Normal Bowel Sounds, Soft Extremities: Yes: WNL Edema: No Labs: CBC, BMP 02/13/18 06:40 02/13/18 06:40 INR, PTT INR 1.13 (0.83-1.09) H 02/08/18 15:30 Problem List - Problems (1) Colitis Assessment/Plan: low residue lactose free diet f/u pathology cultures negative Code(s): K52.9 - NONINFECTIVE GASTROENTERITIS AND COLITIS, UNSPECIFIED (2) Diarrhea Code(s): R19.7 - DIARRHEA, UNSPECIFIED Qualifiers: Diarrhea type: unspecified type Qualified Code(s): R19.7 - Diarrhea, unspecified
[2018-02-14 08:18] LABS: BASO % 0.9 % (0-2.0); EOS % 0.1 % (0-4.5); HEMATOCRIT 31.9 % (32.4-45.2); HEMOGLOBIN 10.1 GM/dL (10.7-15.3); LYMPH % 19.1 % (8-40); MCH 32.6 pg (25.7-33.7); MCHC 31.7 g/dl (32.0-36.0); MEAN CELL VOLUME 102.8 fl (80-96); MEAN PLT VOLUME 6.1 fl (7.5-11.1); MONO % 5.6 % (3.8-10.2); NEUT % 74.3 % (42.8-82.8); PLATELET COUNT 353 K/MM3 (134-434); RDW 16.3 % (11.6-15.6); WHITE BLOOD COUNT 8.6 K/mm3 (4.0-10.0)
[2018-02-14 09:09] LABS: ALBUMIN 1.8 g/dl (3.4-5.0); ALK PHOS 88 U/L (45-117); ANION GAP 8 MMOL/L (8-16); BILIRUBIN,TOTAL 0.2 mg/dL (0.2-1); BLOOD UREA NITROGEN 7 mg/dL (7-18); CALCIUM 8.2 mg/dL (8.5-10.1); CHLORIDE 102 mmol/L (98-107); CO2 26 mmol/L (21-32); CREATININE 0.7 mg/dL (0.55-1.3); GLUCOSE,RANDOM 78 mg/dL (74-106); POTASSIUM 3.6 mmol/L (3.5-5.1); SGOT/AST 14 U/L (15-37); SGPT/ALT 9 U/L (13-61); SODIUM 135 mmol/L (136-145); TOT PROT 7.2 g/dl (6.4-8.2)
[2018-02-14] MEDS ORDERED: PT OWN MED DRAWER 7, Y5N ONE (09:22)
[2018-02-14] MEDS: AMINO ACIDS/PROTEIN HYDROLYS 30 ML LIQUID.PKT PO SCH (09:27)
[2018-02-14] MEDS: GABAPENTIN 100 MG CAPSULE (FP) PO SCH ×2 (09:27→22:01)
[2018-02-14] MEDS: DIGOXIN 0.125 MG TABLET (FP) PO SCH (09:27)
[2018-02-14] MEDS: MULTIVITAMINS THER W-MINERALS COMBO TABLET (FP) PO SCH (09:27)
[2018-02-14] MEDS: FERROUS SO4 325 MG TABLET (FP) PO SCH (09:27)
[2018-02-14] MEDS: LACTOBACILLUS ACIDOPHILUS 1 TABLET PO SCH (09:28)
[2018-02-14] MEDS: AMANTADINE HCL 100 MG TABLET PO SCH (09:28)
[2018-02-14] MEDS: CLOPIDOGREL BISULFATE 75 MG TABLET (FP) PO SCH (09:28)
[2018-02-14] MEDS: METHIMAZOLE 10 MG TABLET (FP) PO SCH ×2 (09:28→22:00)
--- NOTE | 2018-02-14 11:35 | PN ---
Progress Note, Physician Chief Complaint: diarrhea History of Present Illness: diarrhea resolved--no BM yet today denies palpitations, sob, cp - Current Medication List Current Medications: Active Medications Amantadine HCl (Symmetrel -) 100 mg PO DAILY [facility] Last Admin: 02/14/18 09:28 Dose: 100 mg Amino Acids (Prosource No Carb Liquid Pkt) 30 ml PO BID@0800,1730 [facility] Last Admin: 02/14/18 09:27 Dose: 30 ml Clopidogrel Bisulfate (Plavix -) 75 mg PO DAILY [facility] Last Admin: 02/14/18 09:28 Dose: 75 mg Digoxin (Lanoxin -) 0.125 mg PO DAILY [facility] Last Admin: 02/14/18 09:27 Dose: 0.125 mg Diltiazem HCl (Cardizem Cd -) 180 mg PO DAILY [facility] Last Admin: 02/14/18 09:27 Dose: 180 mg Ferrous Sulfate (Feosol -) 325 mg PO DAILY [facility] Last Admin: 02/14/18 09:27 Dose: 325 mg Gabapentin (Neurontin -) 100 mg PO BID [facility] Last Admin: 02/14/18 09:27 Dose: 100 mg Heparin Sodium (Porcine) (Heparin -) 5,000 unit SQ TID [facility] Last Admin: 02/14/18 06:20 Dose: 5,000 unit Lactobacillus Acidophilus (Bacid -) 1 tab PO DAILY [facility] Last Admin: 02/14/18 09:28 Dose: 1 tab Methimazole (Tapazole -) 20 mg PO BID [facility] Last Admin: 02/14/18 09:28 Dose: 20 mg Multivitamins/Minerals (Theragran-M) 1 each PO DAILY [facility] Last Admin: 02/14/18 09:27 Dose: 1 each Non-Formulary Medication (Carbidopa/Levodopa [Rytary Er 36.25 Mg-145 Mg Cap]) 1 each PO BID [facility] - Objective Vital Signs: Vital Signs Temperature 98.3 F 02/14/18 07:57 Pulse Rate 107 H 02/14/18 09:27 Respiratory Rate 20 02/14/18 07:57 Blood Pressure 112/63 02/14/18 07:57 O2 Sat by Pulse Oximetry (%) 97 02/13/18 09:00 Constitutional: Yes: Well Nourished, No Distress, Calm Cardiovascular: Yes: Pulse Irregular, S1, S2. No: Gallop, Murmur Respiratory: Yes: Regular, CTA Bilaterally. 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 ileus related to high dose diltiazem then--dose decr'd at that time, continue 180 qd dosing. - propranolol held here due to possible contribution to diarrhea - thus far HR remains reasonably controlled (lenient rate control strategy rec'd: i.e. resting HR <110) - if HR control worsens, can retry propranolol (same or lower dose) and reassess worsening diarrhea, per plan d/w'd GI - cont diltiazem, dig as doing (dig level good) - not on AC due to risk of falls, was on clopidogrel monotherapy (asa allergy), held for FOC--RESUME PLAVIX WHEN OK WITH GI Hyperthyroidism - on tapazole, holding propranolol as it may contribute to diarrhea - manage per primary team htn - controlled/low - cont current meds for rate control pvd/AAA/+ tobacco - on plavix outpatient, not on statin, will defer to outpatient md's. - smoking cessation counselled, CV benefits reviewed
--- NOTE | 2018-02-14 13:06 | PN ---
Physical Exam: SUBJECTIVE: She is in no distress states that she is not in any distress at this time and has had no diarrhea anymore OBJECTIVE: She is in no distress talks with low tone A&OX3 mmm no ocualr discharge CVS:S1S2 CTAB Abd;BS+ NT/ND EXT: no edema Vital Signs Period Temp Pulse Resp BP Sys/Watkins Pulse Ox Last 24 Hr 97.9 F-98.3 F 55-107 18-20 112-126/60-63 Laboratory Results - last 24 hr 02/14/18 02/14/18 06:15 06:15 WBC 8.6 RBC 3.10 L Hgb 10.1 L Hct 31.9 L MCV 102.8 H MCH 32.6 MCHC 31.7 L RDW 16.3 H Plt Count 353 MPV 6.1 L Absolute Neuts (auto) 6.4 Neutrophils % 74.3 Lymphocytes % 19.1 Monocytes % 5.6 Eosinophils % 0.1 Basophils % 0.9 Nucleated RBC % 0 Sodium 135 L Potassium 3.6 Chloride 102 Carbon Dioxide 26 Anion Gap 8 BUN 7 Creatinine 0.7 Creat Clearance w eGFR > 60 Random Glucose 78 Calcium 8.2 L Total Bilirubin 0.2 AST 14 L ALT 9 L Alkaline Phosphatase 88 Total Protein 7.2 Albumin 1.8 L Active Medications Generic Name Dose Route Start Last Admin Trade Name Pawel PRN Reason Stop Dose Admin Amantadine HCl 100 mg 02/09/18 10:00 02/14/18 09:28 Symmetrel - PO 100 mg DAILY [facility] Administration Amino Acids 30 ml 02/09/18 08:00 02/14/18 09:27 Prosource No Carb Liquid Pkt PO 30 ml BID@0800,1730 [facility]ANY Administration Clopidogrel Bisulfate 75 mg 02/12/18 10:15 02/14/18 09:28 Plavix - PO 75 mg DAILY [facility] Administration Digoxin 0.125 mg 02/09/18 10:00 02/14/18 09:27 Lanoxin - PO 0.125 mg DAILY [facility] Administration Diltiazem HCl 180 mg 02/09/18 10:00 02/14/18 09:27 Cardizem Cd - PO 180 mg DAILY [facility] Administration Ferrous Sulfate 325 mg 02/09/18 10:00 02/14/18 09:27 Feosol - PO 325 mg DAILY [facility] Administration Gabapentin 100 mg 02/09/18 10:00 02/14/18 09:27 Neurontin - PO 100 mg BID [facility] Administration Heparin Sodium (Porcine) 5,000 unit 02/09/18 06:00 02/14/18 06:20 Heparin - SQ 5,000 unit TID [facility]ANY Administration Lactobacillus Acidophilus 1 tab 02/09/18 10:00 02/14/18 09:28 Bacid - PO 1 tab DAILY [facility] Administration Methimazole 20 mg 02/09/18 10:00 02/14/18 09:28 Tapazole - PO 20 mg BID [facility] Administration Multivitamins/Minerals 1 each 02/09/18 10:00 02/14/18 09:27 Theragran-M PO 1 each DAILY [facility] Administration Non-Formulary Medication 1 each 02/09/18 10:00 Carbidopa/Levodopa [Rytary Er 36.25 Mg-145 Mg Cap] PO BID [facility] ASSESSMENT/PLAN: She is a 72 y/o female with a history of parkinsons, c. diff, afib, and AAA who presents for diarrhea and weakness and found to have cdifff colitis 1. Acute Colitis with recent treatment for cdiff- clinically improved. s/p sigmoidoscopy 02/11. tolerating full diet. leukocytosis resolved. cdiff here is negative. will have full colonoscopy in 6-8weeks. ID and GI on board 2. afib not on anticoagulation- asa allergy. will re-start plavix. cont rate control on Diltiazem and digoxin (propanolol now d/c as possible contributing to diarrhea , if she becomes tachy will restart propranolol as per cardiology note there wsa concern due to her previous admissions in the past.) 3. PVD- re-start plavix 4. AAA- periodic surveillance 5. Hyperthyroid- TSH WNL. cont methimazole 6. parkinson: C.W home medication 7. DVT ppx- hep sq 8. pt very unstable ambulating. PT eval tomorrow to see if requires WANDER on discharge. 9) malnutrition: evlauated by nutrition , will start on po supplements, started on MV patient is ready to be DCed , will readdress on Friday with SW. Pain control with gabapentin Anemia: on po ferrous sulfate, will check retic count, Iron studies FC Visit type - Emergency Visit Emergency Visit: Yes ED Registration Date: 02/08/18 Care time: The patient presented to the Emergency Department on the above date and was hospitalized for further evaluation of their emergent condition. - New Patient This patient is new to me today: No - Critical Care Critical Care patient: No - Discharge Referral Referred to [facility] No
--- NOTE | 2018-02-14 15:21 | PN ---
Progress Note, Physician History of Present Illness: Pt is alert, afebrile. Has been having less watery stools, no abd pain. Has no specific complaints. - Current Medication List Current Medications: Active Medications Amantadine HCl (Symmetrel -) 100 mg PO DAILY [facility] Last Admin: 02/14/18 09:28 Dose: 100 mg Amino Acids (Prosource No Carb Liquid Pkt) 30 ml PO BID@0800,1730 [facility] Last Admin: 02/14/18 09:27 Dose: 30 ml Clopidogrel Bisulfate (Plavix -) 75 mg PO DAILY [facility] Last Admin: 02/14/18 09:28 Dose: 75 mg Digoxin (Lanoxin -) 0.125 mg PO DAILY [facility] Last Admin: 02/14/18 09:27 Dose: 0.125 mg Diltiazem HCl (Cardizem Cd -) 180 mg PO DAILY [facility] Last Admin: 02/14/18 09:27 Dose: 180 mg Ferrous Sulfate (Feosol -) 325 mg PO DAILY [facility] Last Admin: 02/14/18 09:27 Dose: 325 mg Gabapentin (Neurontin -) 100 mg PO BID [facility] Last Admin: 02/14/18 09:27 Dose: 100 mg Heparin Sodium (Porcine) (Heparin -) 5,000 unit SQ TID [facility] Last Admin: 02/14/18 13:20 Dose: 5,000 unit Lactobacillus Acidophilus (Bacid -) 1 tab PO DAILY [facility] Last Admin: 02/14/18 09:28 Dose: 1 tab Methimazole (Tapazole -) 20 mg PO BID [facility] Last Admin: 02/14/18 09:28 Dose: 20 mg Multivitamins/Minerals (Theragran-M) 1 each PO DAILY [facility] Last Admin: 02/14/18 09:27 Dose: 1 each Non-Formulary Medication (Carbidopa/Levodopa [Rytary Er 36.25 Mg-145 Mg Cap]) 1 each PO BID [facility] - Objective Vital Signs: Vital Signs Temperature 98.3 F 02/14/18 07:57 Pulse Rate 107 H 02/14/18 09:27 Respiratory Rate 20 02/14/18 07:57 Blood Pressure 112/63 02/14/18 07:57 O2 Sat by Pulse Oximetry (%) 97 02/13/18 09:00 Constitutional: Yes: No Distress, Calm Cardiovascular: Yes: Regular Rate and Rhythm Respiratory: Yes: Regular Gastrointestinal: Yes: Normal Bowel Sounds, Soft Genitourinary: Yes: WNL Edema: No Integumentary: Yes: WNL Neurological: Yes: Alert, Oriented Labs: CBC, BMP 02/14/18 06:15 02/14/18 06:15 INR, PTT INR 1.13 (0.83-1.09) H 02/08/18 15:30 Microbiology 02/08/18 15:30 Blood - Peripheral Venous Blood Culture - Final NO GROWTH AFTER 5 DAYS INCUBATION 02/08/18 15:30 Blood - Peripheral Venous Blood Culture - Final NO GROWTH AFTER 5 DAYS INCUBATION 02/08/18 15:20 Stool Clostridium difficile Antigen (MARICARMEN) - Final 02/08/18 15:20 Stool Clostridium difficile Toxin Assay - Final 02/08/18 15:20 Stool Salmonella/Shigella Culture - Final NO GROWTH OF SALMONELLA OR SHIGELLA SPECIES OBTAINED 02/08/18 15:20 Stool Campylobacter Culture - Final NO GROWTH OF CAMPYLOBACTER SPECIES OBTAINED 02/08/18 15:20 Stool Yersinia Culture - Final NO GROWTH OF YERSINIA SPECIES OBTAINED 02/08/18 15:20 Stool Vibrio Culture - Final NO GROWTH OF VIBRIO SPECIES OBTAINED 02/08/18 15:20 Stool Escherichia coli 0157 Culture - Final NO GROWTH OF E COLI 0157 OBTAINED 02/08/18 15:30 Urine - Urine - Catheterized Urine Culture - Final Klebsiella Pneumoniae Problem List - Problems (1) Diarrhea Code(s): R19.7 - DIARRHEA, UNSPECIFIED Qualifiers: Diarrhea type: unspecified type Qualified Code(s): R19.7 - Diarrhea, unspecified (2) AAA (abdominal aortic aneurysm) Code(s): I71.4 - ABDOMINAL AORTIC ANEURYSM, WITHOUT RUPTURE Qualifiers: Presence of rupture: without rupture Qualified Code(s): I71.4 - Abdominal aortic aneurysm, without rupture (3) RACHELLE (acute kidney injury) Code(s): N17.9 - ACUTE KIDNEY FAILURE, UNSPECIFIED (4) Afib Code(s): I48.91 - UNSPECIFIED ATRIAL FIBRILLATION Qualifiers: Atrial fibrillation type: chronic Qualified Code(s): I48.2 - Chronic atrial fibrillation (5) HTN (hypertension) Code(s): I10 - ESSENTIAL (PRIMARY) HYPERTENSION Qualifiers: Hypertension type: essential hypertension Qualified Code(s): I10 - Essential (primary) hypertension (6) Hyperthyroidism Code(s): E05.90 - THYROTOXICOSIS, UNSP WITHOUT THYROTOXIC CRISIS OR STORM (7) Parkinson disease Code(s): G20 - PARKINSON'S DISEASE (8) Afib Code(s): I48.91 - UNSPECIFIED ATRIAL FIBRILLATION Qualifiers: Atrial fibrillation type: chronic Qualified Code(s): I48.2 - Chronic atrial fibrillation Assessment/Plan Diarrhea Parkinsons Disease Atrial fibrillation History of C. diff colitis -- stool CDT/c.diff Ag negative, stool cultures neg. -- f/u colonoscopy results, GI f/u -- monitor off antibiotics
[2018-02-15] MEDS: HEPARIN NA (PORCINE) 5,000 UNITS/ML 1ML VIAL SQ SCH ×3 (06:11→21:45)
[2018-02-15] MEDS: AMINO ACIDS/PROTEIN HYDROLYS 30 ML LIQUID.PKT PO SCH ×3 (06:57→18:26)
[2018-02-15] MEDS ORDERED: PT OWN MED DRAWER 7, Y5N ONE (10:29)
[2018-02-15] MEDS: FERROUS SO4 325 MG TABLET (FP) PO SCH (10:30)
[2018-02-15] MEDS: DIGOXIN 0.125 MG TABLET (FP) PO SCH (10:30)
[2018-02-15] MEDS: CLOPIDOGREL BISULFATE 75 MG TABLET (FP) PO SCH (10:30)
[2018-02-15] MEDS: LACTOBACILLUS ACIDOPHILUS 1 TABLET PO SCH (10:30)
[2018-02-15] MEDS: GABAPENTIN 100 MG CAPSULE (FP) PO SCH ×2 (10:31→21:46)
[2018-02-15] MEDS: MULTIVITAMINS THER W-MINERALS COMBO TABLET (FP) PO SCH (10:31)
[2018-02-15] MEDS: METHIMAZOLE 10 MG TABLET (FP) PO SCH ×2 (10:31→21:46)
[2018-02-15] MEDS: AMANTADINE HCL 100 MG TABLET PO SCH (10:31)
--- NOTE | 2018-02-15 11:07 | PN ---
Physical Exam: SUBJECTIVE: Patient seen and examined OBJECTIVE: Vital Signs Period Temp Pulse Resp BP Sys/Watkins Pulse Ox Last 24 Hr 97.3 F-98.5 F 92-103 18-20 98-123/64-78 96 She is in bed in no distress, cvsS:1s2 ctab aBD;bs+ nt/nd She is cachrctic, Active Medications Generic Name Dose Route Start Last Admin Trade Name Freq PRN Reason Stop Dose Admin Amantadine HCl 100 mg 02/09/18 10:00 02/15/18 10:31 Symmetrel - PO 100 mg DAILY [facility] Administration Amino Acids 30 ml 02/09/18 08:00 02/15/18 10:30 Prosource No Carb Liquid Pkt PO 30 ml BID@0800,1730 [facility] Administration Clopidogrel Bisulfate 75 mg 02/12/18 10:15 02/15/18 10:30 Plavix - PO 75 mg DAILY [facility] Administration Digoxin 0.125 mg 02/09/18 10:00 02/15/18 10:30 Lanoxin - PO 0.125 mg DAILY [facility] Administration Diltiazem HCl 180 mg 02/09/18 10:00 02/15/18 10:31 Cardizem Cd - PO 180 mg DAILY [facility] Administration Ferrous Sulfate 325 mg 02/09/18 10:00 02/15/18 10:30 Feosol - PO 325 mg DAILY [facility] Administration Gabapentin 100 mg 02/09/18 10:00 02/15/18 10:31 Neurontin - PO 100 mg BID [facility] Administration Heparin Sodium (Porcine) 5,000 unit 02/09/18 06:00 02/15/18 06:11 Heparin - SQ 5,000 unit TID [facility] Administration Lactobacillus Acidophilus 1 tab 02/09/18 10:00 02/15/18 10:30 Bacid - PO 1 tab DAILY [facility] Administration Methimazole 20 mg 02/09/18 10:00 02/15/18 10:31 Tapazole - PO 20 mg BID [facility] Administration Multivitamins/Minerals 1 each 02/09/18 10:00 02/15/18 10:31 Theragran-M PO 1 each DAILY [facility] Administration Non-Formulary Medication 1 each 02/09/18 10:00 Carbidopa/Levodopa [Rytary Er 36.25 Mg-145 Mg Cap] PO BID [facility] ASSESSMENT/PLAN: She is a 72 y/o female with a history of parkinsons, c. diff, afib, and AAA who presents for diarrhea and weakness and found to have cdifff colitis 1. Acute Colitis with recent treatment for cdiff- clinically improved. s/p sigmoidoscopy 02/11. diet changed today to regular diet, will evaluate for her ability to tolerate it. leukocytosis resolved. cdiff here is negative. will have full colonoscopy in 6-8weeks. ID and GI on board 2. afib not on anticoagulation- asa allergy. will re-start plavix. cont rate control on Diltiazem and digoxin (propanolol now d/c as possible contributing to diarrhea , if she becomes tachy will restart propranolol as per cardiology note there wsa concern due to her previous admissions in the past.) 3. PVD- re-start plavix 4. AAA- periodic surveillance, He is on ASA, started on atorvastatin 20 mg qhs FROM [facility] 5. Hyperthyroid- TSH WNL. cont methimazole 6. Parkinson: C.W home medication 7. DVT ppx- hep sq 8. pt very unstable ambulating. 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 Will discuss with social workers 9) malnutrition: evaluated by nutrition , will start on po supplements, started on MV , Added Zinc to the diet patient is ready to be DCed , will readdress on Friday with SW. Pain control with gabapentin Anemia: on po ferrous sulfate, will check retic count, Iron studies FC Visit type - Emergency Visit Emergency Visit: Yes ED Registration Date: 02/08/18 Care time: The patient presented to the Emergency Department on the above date and was hospitalized for further evaluation of their emergent condition. - New Patient This patient is new to me today: No - Critical Care Critical Care patient: No - Discharge Referral Referred to [facility] Med [facility] No
--- NOTE | 2018-02-15 11:29 | PN ---
Progress Note, Physician Chief Complaint: feeling better - eating lunch , denies loose BM today - Current Medication List Current Medications: Active Medications Amantadine HCl (Symmetrel -) 100 mg PO DAILY [facility] Last Admin: 02/15/18 10:31 Dose: 100 mg Amino Acids (Prosource No Carb Liquid Pkt) 30 ml PO BID@0800,1730 [facility] Last Admin: 02/15/18 10:30 Dose: 30 ml Atorvastatin Calcium (Lipitor -) 20 mg PO [facility] Clopidogrel Bisulfate (Plavix -) 75 mg PO DAILY [facility] Last Admin: 02/15/18 10:30 Dose: 75 mg Digoxin (Lanoxin -) 0.125 mg PO DAILY [facility] Last Admin: 02/15/18 10:30 Dose: 0.125 mg Diltiazem HCl (Cardizem Cd -) 180 mg PO DAILY [facility] Last Admin: 02/15/18 10:31 Dose: 180 mg Ferrous Sulfate (Feosol -) 325 mg PO DAILY [facility] Last Admin: 02/15/18 10:30 Dose: 325 mg Gabapentin (Neurontin -) 100 mg PO BID [facility] Last Admin: 02/15/18 10:31 Dose: 100 mg Heparin Sodium (Porcine) (Heparin -) 5,000 unit SQ TID [facility] Last Admin: 02/15/18 06:11 Dose: 5,000 unit Lactobacillus Acidophilus (Bacid -) 1 tab PO DAILY [facility] Last Admin: 02/15/18 10:30 Dose: 1 tab Methimazole (Tapazole -) 20 mg PO BID [facility] Last Admin: 02/15/18 10:31 Dose: 20 mg Multivitamins/Minerals (Theragran-M) 1 each PO DAILY [facility] Last Admin: 02/15/18 10:31 Dose: 1 each Non-Formulary Medication (Carbidopa/Levodopa [Rytary Er 36.25 Mg-145 Mg Cap]) 1 each PO BID [facility] Zinc Sulfate (Orazinc -) 220 mg PO DAILY [facility] - Objective Vital Signs: Vital Signs Temperature 97.3 F L 02/15/18 06:00 Pulse Rate 96 H 02/15/18 10:30 Respiratory Rate 18 02/15/18 06:00 Blood Pressure 115/64 02/15/18 06:00 O2 Sat by Pulse Oximetry (%) 96 02/14/18 21:00 Constitutional: Yes: Well Nourished, No Distress, Calm Eyes: Yes: WNL HENT: Yes: WNL Neck: Yes: WNL Cardiovascular: Yes: WNL, Regular Rate and Rhythm Respiratory: Yes: WNL, CTA Bilaterally Gastrointestinal: Yes: WNL, Normal Bowel Sounds, Soft Extremities: Yes: WNL Edema: No Labs: CBC, BMP 02/14/18 06:15 02/14/18 06:15 INR, PTT INR 1.13 (0.83-1.09) H 02/08/18 15:30 Problem List - Problems (1) Colitis Assessment/Plan: low residue lactose free diet f/u pathology cultures negative complete abx course Code(s): K52.9 - NONINFECTIVE GASTROENTERITIS AND COLITIS, UNSPECIFIED (2) Diarrhea Code(s): R19.7 - DIARRHEA, UNSPECIFIED Qualifiers: Diarrhea type: unspecified type Qualified Code(s): R19.7 - Diarrhea, unspecified
--- NOTE | 2018-02-15 12:05 | PN ---
Progress Note, Physician History of Present Illness: patient still continues to have dirrhoea comfortable suspicion of colitis final result awaited - Current Medication List Current Medications: Active Medications Amantadine HCl (Symmetrel -) 100 mg PO DAILY [facility] Last Admin: 02/15/18 10:31 Dose: 100 mg Amino Acids (Prosource No Carb Liquid Pkt) 30 ml PO BID@0800,1730 [facility] Last Admin: 02/15/18 10:30 Dose: 30 ml Atorvastatin Calcium (Lipitor -) 20 mg PO HS [facility] Clopidogrel Bisulfate (Plavix -) 75 mg PO DAILY [facility] Last Admin: 02/15/18 10:30 Dose: 75 mg Digoxin (Lanoxin -) 0.125 mg PO DAILY [facility] Last Admin: 02/15/18 10:30 Dose: 0.125 mg Diltiazem HCl (Cardizem Cd -) 180 mg PO DAILY [facility] Last Admin: 02/15/18 10:31 Dose: 180 mg Ferrous Sulfate (Feosol -) 325 mg PO DAILY [facility] Last Admin: 02/15/18 10:30 Dose: 325 mg Gabapentin (Neurontin -) 100 mg PO BID [facility] Last Admin: 02/15/18 10:31 Dose: 100 mg Heparin Sodium (Porcine) (Heparin -) 5,000 unit SQ TID [facility] Last Admin: 02/15/18 06:11 Dose: 5,000 unit Lactobacillus Acidophilus (Bacid -) 1 tab PO DAILY [facility] Last Admin: 02/15/18 10:30 Dose: 1 tab Methimazole (Tapazole -) 20 mg PO BID [facility] Last Admin: 02/15/18 10:31 Dose: 20 mg Multivitamins/Minerals (Theragran-M) 1 each PO DAILY [facility] Last Admin: 02/15/18 10:31 Dose: 1 each Non-Formulary Medication (Carbidopa/Levodopa [Rytary Er 36.25 Mg-145 Mg Cap]) 1 each PO BID [facility] Zinc Sulfate (Orazinc -) 220 mg PO DAILY [facility] - Objective Vital Signs: Vital Signs Temperature 97.3 F L 02/15/18 06:00 Pulse Rate 96 H 02/15/18 10:30 Respiratory Rate 18 02/15/18 06:00 Blood Pressure 115/64 02/15/18 06:00 O2 Sat by Pulse Oximetry (%) 96 02/14/18 21:00 Constitutional: Yes: No Distress, Calm Cardiovascular: Yes: Regular Rate and Rhythm Respiratory: Yes: Regular, CTA Bilaterally Gastrointestinal: Yes: Normal Bowel Sounds, Soft, Other (dirrhoea) Musculoskeletal: Yes: WNL Extremities: Yes: WNL Neurological: Yes: Alert, Oriented Psychiatric: Yes: Alert, Oriented Labs: CBC, BMP 02/14/18 06:15 02/14/18 06:15 INR, PTT INR 1.13 (0.83-1.09) H 02/08/18 15:30 Assessment/Plan weakness dirrhoea cdiff history plan fluid replacement continue monitoring will start patient on flagyl await for final result of scopy
[2018-02-15] MEDS: ZINC SULFATE 220 MG CAPSULE (FP) PO SCH (12:22)
--- NOTE | 2018-02-15 13:28 | PN ---
Progress Note, Physician Chief Complaint: diarrhea History of Present Illness: remains with no more diarrhea denies palpitations, cp, sob - Current Medication List Current Medications: Active Medications Amantadine HCl (Symmetrel -) 100 mg PO DAILY [facility] Last Admin: 02/15/18 10:31 Dose: 100 mg Amino Acids (Prosource No Carb Liquid Pkt) 30 ml PO BID@0800,1730 [facility] Last Admin: 02/15/18 10:30 Dose: 30 ml Atorvastatin Calcium (Lipitor -) 20 mg PO HS [facility] Clopidogrel Bisulfate (Plavix -) 75 mg PO DAILY [facility] Last Admin: 02/15/18 10:30 Dose: 75 mg Digoxin (Lanoxin -) 0.125 mg PO DAILY [facility] Last Admin: 02/15/18 10:30 Dose: 0.125 mg Diltiazem HCl (Cardizem Cd -) 180 mg PO DAILY [facility] Last Admin: 02/15/18 10:31 Dose: 180 mg Ferrous Sulfate (Feosol -) 325 mg PO DAILY [facility] Last Admin: 02/15/18 10:30 Dose: 325 mg Gabapentin (Neurontin -) 100 mg PO BID [facility] Last Admin: 02/15/18 10:31 Dose: 100 mg Heparin Sodium (Porcine) (Heparin -) 5,000 unit SQ TID [facility] Last Admin: 02/15/18 06:11 Dose: 5,000 unit Metronidazole (Flagyl 500mg Premixed Ivpb -) 500 mg in 100 mls @ 100 mls/hr IVPB Q8H-IV [facility] Last Admin: 02/15/18 12:22 Dose: 100 mls/hr Lactobacillus Acidophilus (Bacid -) 1 tab PO DAILY [facility] Last Admin: 02/15/18 10:30 Dose: 1 tab Methimazole (Tapazole -) 20 mg PO BID [facility] Last Admin: 02/15/18 10:31 Dose: 20 mg Multivitamins/Minerals (Theragran-M) 1 each PO DAILY [facility] Last Admin: 02/15/18 10:31 Dose: 1 each Non-Formulary Medication (Carbidopa/Levodopa [Rytary Er 36.25 Mg-145 Mg Cap]) 1 each PO BID [facility] Zinc Sulfate (Orazinc -) 220 mg PO DAILY [facility] Last Admin: 02/15/18 12:22 Dose: 220 mg - Objective Vital Signs: Vital Signs Temperature 97.3 F L 02/15/18 06:00 Pulse Rate 96 H 02/15/18 10:30 Respiratory Rate 18 02/15/18 06:00 Blood Pressure 115/64 02/15/18 06:00 O2 Sat by Pulse Oximetry (%) 96 02/14/18 21:00 Constitutional: Yes: No Distress, Calm, Thin Cardiovascular: Yes: Pulse Irregular, S1, S2. No: Gallop, Murmur Respiratory: Yes: Regular, CTA Bilaterally. No: Accessory Muscle Use Extremities: No: Cold Edema: No Neurological: Yes: Alert. 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 ileus related to high dose diltiazem then--dose decr'd at that time, continue 180 qd dosing. - propranolol held here due to possible contribution to diarrhea - thus far HR remains reasonably controlled (lenient rate control strategy rec'd: i.e. resting HR <110) - if HR control worsens, can retry propranolol (same or lower dose) and reassess worsening diarrhea, per plan d/w'd GI - cont diltiazem, dig as doing (dig level good) - not on AC due to risk of falls, was on clopidogrel monotherapy (asa allergy), held for FOC--RESUME PLAVIX WHEN OK WITH GI Hyperthyroidism - on tapazole, holding propranolol as it may contribute to diarrhea - manage per primary team htn - controlled/low - cont current meds for rate control pvd/AAA/+ tobacco - on plavix outpatient, not on statin, will defer to outpatient md's. - smoking cessation counselled, CV benefits reviewed
[2018-02-15] MEDS: ATORVASTATIN CA 20 MG TABLET (FP) PO SCH (21:46)
--- NOTE | 2018-02-16 08:32 | PN ---
GI Progress Note Subjective: No acute events Soft BM's reported overnight - Objective Vital Signs: Vital Signs Temperature 98.1 F 02/16/18 05:00 Pulse Rate 100 H 02/16/18 05:00 Respiratory Rate 18 02/16/18 05:00 Blood Pressure 99/59 L 02/16/18 05:00 O2 Sat by Pulse Oximetry (%) 96 02/15/18 21:00 Constitutional: Calm Cardiovascular: Yes: Tachycardia, Pulse Irregular Respiratory: Yes: Diminished (at bases, poor insp effort) Gastrointestinal Inspection: No: Distention ...Auscultate: Yes: Normoactive Bowel Sounds ...Palpate: No: Tenderness Edema: No (No LE edema) Wound/Incision: Yes: Unapproximated Labs: CBC, BMP 02/14/18 06:15 02/14/18 06:15 INR, PTT INR 1.13 (0.83-1.09) H 02/08/18 15:30 Problem List - Problems (1) Diarrhea Assessment/Plan: Clinically improved Awaiting pathology result from flex sig Abx being added and adjusted per ID Rate control of a. fib Code(s): R19.7 - DIARRHEA, UNSPECIFIED Qualifiers: Diarrhea type: unspecified type Qualified Code(s): R19.7 - Diarrhea, unspecified
--- NOTE | 2018-02-16 08:52 | PN ---
Progress Note, Physician History of Present Illness: stable bm soft dirrhoea improving - Current Medication List Current Medications: Active Medications Amantadine HCl (Symmetrel -) 100 mg PO DAILY [facility] Last Admin: 02/15/18 10:31 Dose: 100 mg Amino Acids (Prosource No Carb Liquid Pkt) 30 ml PO BID@0800,1730 [facility] Last Admin: 02/15/18 18:26 Dose: 30 ml Atorvastatin Calcium (Lipitor -) 20 mg PO HS [facility] Last Admin: 02/15/18 21:46 Dose: 20 mg Clopidogrel Bisulfate (Plavix -) 75 mg PO DAILY [facility] Last Admin: 02/15/18 10:30 Dose: 75 mg Digoxin (Lanoxin -) 0.125 mg PO DAILY [facility] Last Admin: 02/15/18 10:30 Dose: 0.125 mg Diltiazem HCl (Cardizem Cd -) 180 mg PO DAILY [facility] Last Admin: 02/15/18 10:31 Dose: 180 mg Ferrous Sulfate (Feosol -) 325 mg PO DAILY [facility] Last Admin: 02/15/18 10:30 Dose: 325 mg Gabapentin (Neurontin -) 100 mg PO BID [facility] Last Admin: 02/15/18 21:46 Dose: 100 mg Metronidazole (Flagyl 500mg Premixed Ivpb -) 500 mg in 100 mls @ 100 mls/hr IVPB Q8H-IV [facility] Last Admin: 02/16/18 02:00 Dose: 100 mls/hr Lactobacillus Acidophilus (Bacid -) 1 tab PO DAILY [facility] Last Admin: 02/15/18 10:30 Dose: 1 tab Methimazole (Tapazole -) 20 mg PO BID [facility] Last Admin: 02/15/18 21:46 Dose: 20 mg Multivitamins/Minerals (Theragran-M) 1 each PO DAILY [facility] Last Admin: 02/15/18 10:31 Dose: 1 each Non-Formulary Medication (Carbidopa/Levodopa [Rytary Er 36.25 Mg-145 Mg Cap]) 1 each PO BID [facility] Zinc Sulfate (Orazinc -) 220 mg PO DAILY [facility] Last Admin: 02/15/18 12:22 Dose: 220 mg - Objective Vital Signs: Vital Signs Temperature 98.1 F 02/16/18 05:00 Pulse Rate 100 H 02/16/18 05:00 Respiratory Rate 18 02/16/18 05:00 Blood Pressure 99/59 L 02/16/18 05:00 O2 Sat by Pulse Oximetry (%) 96 02/15/18 21:00 Constitutional: Yes: No Distress, Calm Cardiovascular: Yes: Pulse Irregular Respiratory: Yes: Regular, CTA Bilaterally Gastrointestinal: Yes: Normal Bowel Sounds, Soft Musculoskeletal: Yes: WNL Extremities: Yes: WNL Neurological: Yes: Alert, Oriented Psychiatric: Yes: Alert, Oriented Labs: CBC, BMP 02/14/18 06:15 02/14/18 06:15 INR, PTT INR 1.13 (0.83-1.09) H 02/08/18 15:30 Assessment/Plan weakness dirrhoea cdiff history colitis plan continue flagyl rest continue current mgmt
--- NOTE | 2018-02-16 10:18 | PN ---
Progress Note, Physician Chief Complaint: diarrhea History of Present Illness: minimal diarrhea persists no palpit, sob, cp, leg swelling - Current Medication List Current Medications: Active Medications Amantadine HCl (Symmetrel -) 100 mg PO DAILY [facility] Last Admin: 02/15/18 10:31 Dose: 100 mg Amino Acids (Prosource No Carb Liquid Pkt) 30 ml PO BID@0800,1730 [facility] Last Admin: 02/15/18 18:26 Dose: 30 ml Atorvastatin Calcium (Lipitor -) 20 mg PO HS [facility] Last Admin: 02/15/18 21:46 Dose: 20 mg Clopidogrel Bisulfate (Plavix -) 75 mg PO DAILY [facility] Last Admin: 02/15/18 10:30 Dose: 75 mg Digoxin (Lanoxin -) 0.125 mg PO DAILY [facility] Last Admin: 02/15/18 10:30 Dose: 0.125 mg Diltiazem HCl (Cardizem Cd -) 180 mg PO DAILY [facility] Last Admin: 02/15/18 10:31 Dose: 180 mg Ferrous Sulfate (Feosol -) 325 mg PO DAILY [facility] Last Admin: 02/15/18 10:30 Dose: 325 mg Gabapentin (Neurontin -) 100 mg PO BID [facility] Last Admin: 02/15/18 21:46 Dose: 100 mg Metronidazole (Flagyl 500mg Premixed Ivpb -) 500 mg in 100 mls @ 100 mls/hr IVPB Q8H-IV [facility] Last Admin: 02/16/18 02:00 Dose: 100 mls/hr Lactobacillus Acidophilus (Bacid -) 1 tab PO DAILY [facility] Last Admin: 02/15/18 10:30 Dose: 1 tab Methimazole (Tapazole -) 20 mg PO BID [facility] Last Admin: 02/15/18 21:46 Dose: 20 mg Multivitamins/Minerals (Theragran-M) 1 each PO DAILY [facility] Last Admin: 02/15/18 10:31 Dose: 1 each Non-Formulary Medication (Carbidopa/Levodopa [Rytary Er 36.25 Mg-145 Mg Cap]) 1 each PO BID [facility] Zinc Sulfate (Orazinc -) 220 mg PO DAILY [facility] Last Admin: 02/15/18 12:22 Dose: 220 mg - Objective Vital Signs: Vital Signs Temperature 98.1 F 02/16/18 05:00 Pulse Rate 100 H 02/16/18 05:00 Respiratory Rate 18 02/16/18 05:00 Blood Pressure 99/59 L 02/16/18 05:00 O2 Sat by Pulse Oximetry (%) 96 02/15/18 21:00 Constitutional: Yes: No Distress, Calm, Thin Cardiovascular: Yes: Pulse Irregular, S1, S2. No: Gallop, Murmur Respiratory: Yes: Regular, CTA Bilaterally. 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 ileus related to high dose diltiazem then--dose decr'd at that time, continue 180 qd dosing. - rec lenient rate control strategy (i.e. resting HR < 110) given pt tolerates this well with no sx's or HF issues - propranolol held here due to possible contribution to diarrhea - thus far HR remains reasonably controlled (lenient rate control strategy rec'd: i.e. resting HR <110) - if HR control worsens, can retry propranolol (same or lower dose) and reassess worsening diarrhea, per plan d/w'd GI - cont diltiazem, dig as doing (dig level good) - not on AC due to risk of falls, cont plavix per prior tx plan Hyperthyroidism - on tapazole, holding propranolol as it may contribute to diarrhea - manage per primary team htn - controlled/low - cont current meds for rate control pvd/AAA/+ tobacco - on plavix outpatient, not on statin, will defer to outpatient md's. - smoking cessation counselled, CV benefits reviewed
[2018-02-16] MEDS ORDERED: PT OWN MED DRAWER 7, Y5N ONE ×2 (10:22→20:59)
[2018-02-16] MEDS: LACTOBACILLUS ACIDOPHILUS 1 TABLET PO SCH (10:26)
[2018-02-16] MEDS: ZINC SULFATE 220 MG CAPSULE (FP) PO SCH (10:26)
[2018-02-16] MEDS: CLOPIDOGREL BISULFATE 75 MG TABLET (FP) PO SCH (10:26)
[2018-02-16] MEDS: DIGOXIN 0.125 MG TABLET (FP) PO SCH (10:26)
[2018-02-16] MEDS: AMINO ACIDS/PROTEIN HYDROLYS 30 ML LIQUID.PKT PO SCH ×2 (10:26→17:30)
[2018-02-16] MEDS: GABAPENTIN 100 MG CAPSULE (FP) PO SCH ×2 (10:27→21:26)
[2018-02-16] MEDS: MULTIVITAMINS THER W-MINERALS COMBO TABLET (FP) PO SCH (10:29)
[2018-02-16] MEDS: AMANTADINE HCL 100 MG TABLET PO SCH (10:29)
[2018-02-16] MEDS: METHIMAZOLE 10 MG TABLET (FP) PO SCH ×2 (10:29→21:27)
[2018-02-16] MEDS: FERROUS SO4 325 MG TABLET (FP) PO SCH (10:30)
--- NOTE | 2018-02-16 15:05 | PATH ---
Surgical Pathology Report Patient Name: YVON PEREZ Med. Rec. #: [id number] /Age/Gender: 1945 (Age: 72) / F Account: [id number] Location: [facility] MED/SURG Taken: 02/11/2018 Received: 02/13/2018 Reported: 02/16/2018 Physicians: Cherie Jones M.D. Specimen(s) Received BX SIGMOID Clinical History Diarrhea Postoperative diagnosis: Colitis Final Diagnosis SIGMOID COLON, BIOPSY: MINUTE AGGREGATE OF ACUTE INFLAMMATORY EXUDATE AND RARE EPITHELIAL CELLS CONSISTENT WITH ULCER BASE. Electronically Signed Thalia Harrell M.D. Gross Description Received in formalin labeled "sigmoid colon biopsy," is a less than 0.1 cm aggregate of sterling soft tissue fragments. The formalin is filtered and the specimen is entirely submitted in one cassette. The specimen may fail to survive processing. /02/13/2018 saudi02/13/2018
--- NOTE | 2018-02-16 15:26 | PN ---
Teaching Attending Note Name of Resident: Pete Rod ATTENDING PHYSICIAN STATEMENT I saw and evaluated the patient. I reviewed the resident's note and discussed the case with the resident. I agree with the resident's findings and plan as documented. 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 Active Medications Amantadine HCl (Symmetrel -) 100 mg PO DAILY [facility] Last Admin: 02/16/18 10:29 Dose: 100 mg Amino Acids (Prosource No Carb Liquid Pkt) 30 ml PO BID@0800,1730 [facility] Last Admin: 02/16/18 10:26 Dose: 30 ml Atorvastatin Calcium (Lipitor -) 20 mg PO HS [facility] Last Admin: 02/15/18 21:46 Dose: 20 mg Clopidogrel Bisulfate (Plavix -) 75 mg PO DAILY [facility] Last Admin: 02/16/18 10:26 Dose: 75 mg Digoxin (Lanoxin -) 0.125 mg PO DAILY [facility] Last Admin: 02/16/18 10:26 Dose: 0.125 mg Diltiazem HCl (Cardizem Cd -) 180 mg PO DAILY [facility] Last Admin: 02/16/18 10:26 Dose: 180 mg Ferrous Sulfate (Feosol -) 325 mg PO DAILY [facility] Last Admin: 02/16/18 10:30 Dose: 325 mg Gabapentin (Neurontin -) 100 mg PO BID [facility] Last Admin: 02/16/18 10:27 Dose: 100 mg Metronidazole (Flagyl 500mg Premixed Ivpb -) 500 mg in 100 mls @ 100 mls/hr IVPB Q8H-IV [facility] Last Admin: 02/16/18 10:27 Dose: 100 mls/hr Lactobacillus Acidophilus (Bacid -) 1 tab PO DAILY [facility] Last Admin: 02/16/18 10:26 Dose: 1 tab Methimazole (Tapazole -) 20 mg PO BID [facility] Last Admin: 02/16/18 10:29 Dose: 20 mg Multivitamins/Minerals (Theragran-M) 1 each PO DAILY [facility] Last Admin: 02/16/18 10:29 Dose: 1 each Non-Formulary Medication (Carbidopa/Levodopa [Rytary Er 36.25 Mg-145 Mg Cap]) 1 each PO BID [facility] Zinc Sulfate (Orazinc -) 220 mg PO DAILY [facility] Last Admin: 02/16/18 10:26 Dose: 220 mg CBC, BMP 02/14/18 06:15 02/14/18 06:15 ASSESSMENT AND PLAN:72 yrs old F with H/O CAD, Chronic afib, Hyperthyroidism, C diff afib anemia present with worsening diarrhea afebrile CBC is normal, Stool C diff -ve on IV Flagyl improving; Plan; Will switch to PO as per ID recommendation F/U CBc and BMP.
--- NOTE | 2018-02-16 18:42 | PN ---
Physical Exam: SUBJECTIVE: Patient seen and examined at bedside. No overnight events. No new complaints. Diarrhea has improved, She feels better and wants to go home. Denies CP,MENJIVAR, SOB, abdominal pain, nausea or vomiting. OBJECTIVE: Vital Signs Period Temp Pulse Resp BP Sys/Watkins Pulse Ox Last 24 Hr 98.1 F-98.6 F 100-110 18-20 99-130/55-67 96-96 GENERAL: thin, frail, Awake and alert , NAD ENT: moist mucous membranes. LUNGS: CTAB, no wheezes, no crackles, no accessory muscle use. HEART:Irregular, S1, S2 without murmur, rub or gallop. ABDOMEN: Soft, mild LLQ tenderness, nondistended, normoactive bowel sounds, no guarding, no rebound, no hepatosplenomegaly, no masses. EXTREMITIES: 2+ pulses, warm, well-perfused, no edema. NEUROLOGICAL: alert and oriented , no focal def. PSYCH: Normal mood, normal affect. SKIN: Warm, dry, normal turgor, no rashes or lesions noted Laboratory Results - last 24 hr 02/15/18 08:10 Iron 33 Active Medications Generic Name Dose Route Start Last Admin Trade Name Freq PRN Reason Stop Dose Admin Amantadine HCl 100 mg 02/09/18 10:00 02/16/18 10:29 Symmetrel - PO 100 mg DAILY [facility] Administration Amino Acids 30 ml 02/09/18 08:00 02/16/18 17:30 Prosource No Carb Liquid Pkt PO 30 ml BID@0800,1730 [facility] Administration Atorvastatin Calcium 20 mg 02/15/18 22:00 02/15/18 21:46 Lipitor - PO 20 mg HS [facility] Administration Clopidogrel Bisulfate 75 mg 02/12/18 10:15 02/16/18 10:26 Plavix - PO 75 mg DAILY [facility] Administration Digoxin 0.125 mg 02/09/18 10:00 02/16/18 10:26 Lanoxin - PO 0.125 mg DAILY [facility] Administration Diltiazem HCl 180 mg 02/09/18 10:00 02/16/18 10:26 Cardizem Cd - PO 180 mg DAILY [facility] Administration Ferrous Sulfate 325 mg 02/09/18 10:00 02/16/18 10:30 Feosol - PO 325 mg DAILY [facility] Administration Gabapentin 100 mg 02/09/18 10:00 02/16/18 10:27 Neurontin - PO 100 mg BID [facility] Administration Metronidazole 500 mg in 100 mls @ 100 mls/hr 02/15/18 12:15 02/16/18 17:30 Flagyl 500mg Premixed Ivpb - IVPB 100 mls/hr Q8H-IV [facility] Administration Lactobacillus Acidophilus 1 tab 02/09/18 10:00 02/16/18 10:26 Bacid - PO 1 tab DAILY [facility] Administration Methimazole 20 mg 02/09/18 10:00 02/16/18 10:29 Tapazole - PO 20 mg BID [facility] Administration Multivitamins/Minerals 1 each 02/09/18 10:00 02/16/18 10:29 Theragran-M PO 1 each DAILY [facility] Administration Non-Formulary Medication 1 each 02/09/18 10:00 Carbidopa/Levodopa [Rytary Er 36.25 Mg-145 Mg Cap] PO BID [facility] Zinc Sulfate 220 mg 02/15/18 11:15 02/16/18 10:26 Orazinc - PO 220 mg DAILY [facility] Administration ASSESSMENT/PLAN: 72F smoker with h/o of htn, frequent falls, parkinsons/dystonia, pvd 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 and chronic LLE wound, AAA (4.7 cm), 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 * started on IV Flagyl with improvement of diarrhea. * tolerating advanced diet. * stool studies show Cdiff Ag and toxin negative. * GI consult appreciated * trial stopping magnesium, potassium, and propanolol * colonoscopy in 6-8 weeks as per GI. * Switch to PO Flagyl and discharge home in AM (2) Diarrhea (3) AAA (abdominal aortic aneurysm) Code(s): I71.4 - ABDOMINAL AORTIC ANEURYSM, WITHOUT RUPTURE Qualifiers: Presence of rupture: without rupture Qualified Code(s): I71.4 - Abdominal aortic aneurysm, without rupture (4) Afib Assessment/Plan: * Digoxin (Lanoxin -) 0.125 mg PO DAILY * Diltiazem HCl (Cardizem Cd -) 180 mg PO DAILY * lenient rate control strategy (i.e. resting HR < 110) as per cardiology * can restart propanolol if rate increases * not on AC 2/2 to fall risk. * will restart plavix upon discharge. (5) HTN (hypertension) (6) Hyperthyroidism Assessment/Plan: propanolol held for diarrhea. * Methimazole (Tapazole -) 20 mg PO BID (7) Parkinson disease Assessment/Plan: * Amantadine HCl (Symmetrel -) 100 mg PO DAILY * Carbidopa/Levodopa [Rytary Er 36.25 Mg-145 Mg Cap]) 1 each PO BID [facility] (8) Peripheral vascular disease Assessment/Plan: hold plavix (9) Weakness Assessment/Plan: Physical therapy eval done * patient request to go home does not want rehab. Visit type - Emergency Visit Emergency Visit: Yes ED Registration Date: 02/08/18 Care time: The patient presented to the Emergency Department on the above date and was hospitalized for further evaluation of their emergent condition. - New Patient This patient is new to me today: No - Critical Care Critical Care patient: No
[2018-02-16] MEDS: ATORVASTATIN CA 20 MG TABLET (FP) PO SCH (21:26)
[2018-02-17 07:47] LABS: BASO % 0.5 % (0-2.0); EOS % 0.5 % (0-4.5); HEMATOCRIT 28.9 % (32.4-45.2); HEMOGLOBIN 9.9 GM/dL (10.7-15.3); MCHC 34.1 g/dl (32.0-36.0); MEAN CELL VOLUME 99.9 fl (80-96); MEAN PLT VOLUME 6.3 fl (7.5-11.1); MONO % 6.1 % (3.8-10.2); NEUT % 73.9 % (42.8-82.8); PLATELET COUNT 343 K/MM3 (134-434); RDW 15.8 % (11.6-15.6); WHITE BLOOD COUNT 8.6 K/mm3 (4.0-10.0)
[2018-02-17 08:24] LABS: ALBUMIN 1.8 g/dl (3.4-5.0); ALK PHOS 74 U/L (45-117); ANION GAP 6 MMOL/L (8-16); BILIRUBIN,TOTAL 0.2 mg/dL (0.2-1); BLOOD UREA NITROGEN 11 mg/dL (7-18); CALCIUM 7.9 mg/dL (8.5-10.1); CHLORIDE 104 mmol/L (98-107); CO2 26 mmol/L (21-32); CREATININE 0.7 mg/dL (0.55-1.3); GLUCOSE,RANDOM 82 mg/dL (74-106); POTASSIUM 3.4 mmol/L (3.5-5.1); SGOT/AST 8 U/L (15-37); SGPT/ALT 7 U/L (13-61); SODIUM 136 mmol/L (136-145); TOT PROT 6.7 g/dl (6.4-8.2)
[2018-02-17] MEDS: DIGOXIN 0.125 MG TABLET (FP) PO SCH (10:18)
[2018-02-17] MEDS: GABAPENTIN 100 MG CAPSULE (FP) PO SCH ×2 (10:18→22:03)
[2018-02-17] MEDS: AMINO ACIDS/PROTEIN HYDROLYS 30 ML LIQUID.PKT PO SCH ×2 (10:18→17:37)
[2018-02-17] MEDS: MULTIVITAMINS THER W-MINERALS COMBO TABLET (FP) PO SCH (10:18)
[2018-02-17] MEDS: LACTOBACILLUS ACIDOPHILUS 1 TABLET PO SCH (10:18)
[2018-02-17] MEDS: ZINC SULFATE 220 MG CAPSULE (FP) PO SCH (10:18)
[2018-02-17] MEDS: POTASSIUM CHLORIDE TABS 20 MEQ TABLET.ER (FP) PO SCH (10:18)
[2018-02-17] MEDS: CLOPIDOGREL BISULFATE 75 MG TABLET (FP) PO SCH (10:18)
[2018-02-17] MEDS: FERROUS SO4 325 MG TABLET (FP) PO SCH (10:18)
[2018-02-17] MEDS: AMANTADINE HCL 100 MG TABLET PO SCH (10:27)
[2018-02-17] MEDS: METHIMAZOLE 10 MG TABLET (FP) PO SCH ×2 (10:28→22:44)
--- NOTE | 2018-02-17 11:37 | PN ---
Progress Note (short form) - Note Progress Note: Chief Complaint: diarrhea History of Present Illness: diarrhea resolved. no palpit, sob, cp, leg swelling Current Medications Amantadine HCl (Symmetrel -) 100 mg PO DAILY [facility] Last Admin: 02/17/18 10:27 Dose: 100 mg Amino Acids (Prosource No Carb Liquid Pkt) 30 ml PO BID@0800,1730 [facility] Last Admin: 02/17/18 10:18 Dose: 30 ml Atorvastatin Calcium (Lipitor -) 20 mg PO HS [facility] Last Admin: 02/16/18 21:26 Dose: 20 mg Clopidogrel Bisulfate (Plavix -) 75 mg PO DAILY [facility] Last Admin: 02/17/18 10:18 Dose: 75 mg Digoxin (Lanoxin -) 0.125 mg PO DAILY [facility] Last Admin: 02/17/18 10:18 Dose: 0.125 mg Diltiazem HCl (Cardizem Cd -) 180 mg PO DAILY [facility] Last Admin: 02/17/18 10:18 Dose: 180 mg Ferrous Sulfate (Feosol -) 325 mg PO DAILY [facility] Last Admin: 02/17/18 10:18 Dose: 325 mg Gabapentin (Neurontin -) 100 mg PO BID [facility] Last Admin: 02/17/18 10:18 Dose: 100 mg Metronidazole (Flagyl 500mg Premixed Ivpb -) 500 mg in 100 mls @ 100 mls/hr IVPB Q8H-IV [facility] Last Admin: 02/17/18 10:18 Dose: 100 mls/hr Lactobacillus Acidophilus (Bacid -) 1 tab PO DAILY [facility] Last Admin: 02/17/18 10:18 Dose: 1 tab Methimazole (Tapazole -) 20 mg PO BID [facility] Last Admin: 02/17/18 10:28 Dose: 20 mg Multivitamins/Minerals (Theragran-M) 1 each PO DAILY [facility] Last Admin: 02/17/18 10:18 Dose: 1 each Non-Formulary Medication (Carbidopa/Levodopa [Rytary Er 36.25 Mg-145 Mg Cap]) 1 each PO BID [facility] Potassium Chloride (K-Dur -) 20 meq PO DAILY [facility] Last Admin: 02/17/18 10:18 Dose: 20 meq Zinc Sulfate (Orazinc -) 220 mg PO DAILY [facility] Last Admin: 02/17/18 10:18 Dose: 220 mg - Objective Vital Signs Period Temp Pulse Resp BP Sys/Watkins Pulse Ox Last 24 Hr 97.6 F-98.4 F 103-115 18-20 102-105/55-65 97 Constitutional: Yes: No Distress, Calm, Thin Cardiovascular: Yes: Pulse Irregular, S1, S2. No: Gallop, Murmur Respiratory: Yes: Regular, CTA Bilaterally. 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 ileus related to high dose diltiazem then--dose decr'd at that time, continue 180 qd dosing. - propranolol held here due to possible contribution to diarrhea - thus far HR remains reasonably controlled (lenient rate control strategy rec'd: i.e. resting HR <110 given pt tolerates this well with no sx's or HF issues) - if HR control worsens, can retry propranolol (same or lower dose) and reassess worsening diarrhea, per plan d/w'd GI - cont diltiazem, dig as doing (dig level good) - HR stable - not on AC due to risk of falls, cont plavix per prior tx plan Hyperthyroidism - on tapazole, holding propranolol as it may contribute to diarrhea - manage per primary team htn - controlled/low - cont current meds for rate control pvd/AAA/+ tobacco - on plavix outpatient, not on statin, will defer to outpatient md's. - smoking cessation counselled, CV benefits reviewed
--- NOTE | 2018-02-17 11:39 | PN ---
Progress Note, Physician History of Present Illness: patient stable had 2 bowel movements uptill now - Current Medication List Current Medications: Active Medications Amantadine HCl (Symmetrel -) 100 mg PO DAILY [facility] Last Admin: 02/17/18 10:27 Dose: 100 mg Amino Acids (Prosource No Carb Liquid Pkt) 30 ml PO BID@0800,1730 [facility] Last Admin: 02/17/18 10:18 Dose: 30 ml Atorvastatin Calcium (Lipitor -) 20 mg PO HS [facility] Last Admin: 02/16/18 21:26 Dose: 20 mg Clopidogrel Bisulfate (Plavix -) 75 mg PO DAILY [facility] Last Admin: 02/17/18 10:18 Dose: 75 mg Digoxin (Lanoxin -) 0.125 mg PO DAILY [facility] Last Admin: 02/17/18 10:18 Dose: 0.125 mg Diltiazem HCl (Cardizem Cd -) 180 mg PO DAILY [facility] Last Admin: 02/17/18 10:18 Dose: 180 mg Ferrous Sulfate (Feosol -) 325 mg PO DAILY [facility] Last Admin: 02/17/18 10:18 Dose: 325 mg Gabapentin (Neurontin -) 100 mg PO BID [facility] Last Admin: 02/17/18 10:18 Dose: 100 mg Metronidazole (Flagyl 500mg Premixed Ivpb -) 500 mg in 100 mls @ 100 mls/hr IVPB Q8H-IV [facility] Last Admin: 02/17/18 10:18 Dose: 100 mls/hr Lactobacillus Acidophilus (Bacid -) 1 tab PO DAILY [facility] Last Admin: 02/17/18 10:18 Dose: 1 tab Methimazole (Tapazole -) 20 mg PO BID [facility] Last Admin: 02/17/18 10:28 Dose: 20 mg Multivitamins/Minerals (Theragran-M) 1 each PO DAILY [facility] Last Admin: 02/17/18 10:18 Dose: 1 each Non-Formulary Medication (Carbidopa/Levodopa [Rytary Er 36.25 Mg-145 Mg Cap]) 1 each PO BID [facility] Potassium Chloride (K-Dur -) 20 meq PO DAILY [facility] Last Admin: 02/17/18 10:18 Dose: 20 meq Zinc Sulfate (Orazinc -) 220 mg PO DAILY [facility] Last Admin: 02/17/18 10:18 Dose: 220 mg - Objective Vital Signs: Vital Signs Temperature 97.6 F 02/17/18 06:00 Pulse Rate 104 H 02/17/18 10:18 Respiratory Rate 18 02/17/18 06:00 Blood Pressure 102/58 L 02/17/18 06:00 O2 Sat by Pulse Oximetry (%) 97 02/16/18 21:00 Constitutional: Yes: No Distress, Calm Cardiovascular: Yes: S1, S2 Respiratory: Yes: Regular, CTA Bilaterally Gastrointestinal: Yes: Normal Bowel Sounds, Soft, Other (dirrhoea) Genitourinary: Yes: WNL Musculoskeletal: Yes: WNL Extremities: Yes: WNL Neurological: Yes: Alert, Oriented Psychiatric: Yes: Alert, Oriented Labs: CBC, BMP 02/17/18 06:45 02/17/18 06:45 INR, PTT INR 1.13 (0.83-1.09) H 02/08/18 15:30 Assessment/Plan weakness dirrhoea cdiff history colitis plan continue flagyl rest continue current mgmt can change to oral abx patient can be switched to oral falgyl to be given for another 7 days
--- NOTE | 2018-02-17 14:25 | PN ---
Teaching Attending Note Name of Resident: Pete Rod ATTENDING PHYSICIAN STATEMENT I saw and evaluated the patient. I reviewed the resident's note and discussed the case with the resident. I agree with the resident's findings and plan as documented. SUBJECTIVE: More firm stools OBJECTIVE: Vital Signs Period Temp Pulse Resp BP Sys/Watkins Pulse Ox Last 24 Hr 97.6 F-98.4 F 103-115 18-20 102-122/55-65 97-97 Elderly F not in distress HEENT: Mm moist mild anemia NECK: No JVd No Bruit CHEST: CTA B/L CVS: s1S2 R ABD: Mild tenderness EXT: Trace edema feet; OUTSIDE DELIVERER: AOX3 non focal Active Medications Amantadine HCl (Symmetrel -) 100 mg PO DAILY [facility] Last Admin: 02/16/18 10:29 Dose: 100 mg Amino Acids (Prosource No Carb Liquid Pkt) 30 ml PO BID@0800,1730 [facility] Last Admin: 02/16/18 10:26 Dose: 30 ml Atorvastatin Calcium (Lipitor -) 20 mg PO HS [facility] Last Admin: 02/15/18 21:46 Dose: 20 mg Clopidogrel Bisulfate (Plavix -) 75 mg PO DAILY [facility] Last Admin: 02/16/18 10:26 Dose: 75 mg Digoxin (Lanoxin -) 0.125 mg PO DAILY [facility] Last Admin: 02/16/18 10:26 Dose: 0.125 mg Diltiazem HCl (Cardizem Cd -) 180 mg PO DAILY [facility] Last Admin: 02/16/18 10:26 Dose: 180 mg Ferrous Sulfate (Feosol -) 325 mg PO DAILY [facility] Last Admin: 02/16/18 10:30 Dose: 325 mg Gabapentin (Neurontin -) 100 mg PO BID [facility] Last Admin: 02/16/18 10:27 Dose: 100 mg Metronidazole (Flagyl 500mg Premixed Ivpb -) 500 mg in 100 mls @ 100 mls/hr IVPB Q8H-IV [facility] Last Admin: 02/16/18 10:27 Dose: 100 mls/hr Lactobacillus Acidophilus (Bacid -) 1 tab PO DAILY [facility] Last Admin: 02/16/18 10:26 Dose: 1 tab Methimazole (Tapazole -) 20 mg PO BID [facility] Last Admin: 02/16/18 10:29 Dose: 20 mg Multivitamins/Minerals (Theragran-M) 1 each PO DAILY [facility] Last Admin: 02/16/18 10:29 Dose: 1 each Non-Formulary Medication (Carbidopa/Levodopa [Rytary Er 36.25 Mg-145 Mg Cap]) 1 each PO BID [facility] Zinc Sulfate (Orazinc -) 220 mg PO DAILY [facility] Last Admin: 02/16/18 10:26 Dose: 220 mg CBC, BMP CBC, BMP 02/17/18 06:45 02/17/18 06:45 ASSESSMENT AND PLAN:72 yrs old F with H/O CAD, Chronic afib, Hyperthyroidism, C diff afib anemia present with worsening diarrhea afebrile CBC is normal, Stool C diff -ve on IV Flagyl improving; Plan; switch to PO as per ID recommendation Patient will go home
--- NOTE | 2018-02-17 16:52 | DS ---
Physical Exam: SUBJECTIVE: Patient seen and examined at bedside. No overnight events. No new complaints. Diarrhea has improved, She feels better and wants to go home. Denies CP,MENJIVAR, SOB, abdominal pain, nausea or vomiting. OBJECTIVE: Vital Signs Period Temp Pulse Resp BP Sys/Watkins Pulse Ox Last 24 Hr 98.1 F-98.6 F 100-110 18-20 99-130/55-67 96-96 GENERAL: thin, frail, Awake and alert , NAD ENT: moist mucous membranes. LUNGS: CTAB, no wheezes, no crackles, no accessory muscle use. HEART:Irregular, S1, S2 without murmur, rub or gallop. ABDOMEN: Soft, mild LLQ tenderness, nondistended, normoactive bowel sounds, no guarding, no rebound, no hepatosplenomegaly, no masses. EXTREMITIES: 2+ pulses, warm, well-perfused, no edema. NEUROLOGICAL: alert and oriented , no focal def. PSYCH: Normal mood, normal affect. SKIN: Warm, dry, normal turgor, no rashes or lesions noted LABS Laboratory Results - last 24 hr 02/17/18 02/17/18 06:45 06:45 WBC 8.6 RBC 2.90 L Hgb 9.9 L Hct 28.9 L MCV 99.9 H MCH 34.0 H MCHC 34.1 RDW 15.8 H Plt Count 343 MPV 6.3 L Absolute Neuts (auto) 6.3 Neutrophils % 73.9 Lymphocytes % 19.0 Monocytes % 6.1 Eosinophils % 0.5 D Basophils % 0.5 Nucleated RBC % 0 Sodium 136 Potassium 3.4 L Chloride 104 Carbon Dioxide 26 Anion Gap 6 L BUN 11 Creatinine 0.7 Creat Clearance w eGFR > 60 Random Glucose 82 Calcium 7.9 L Total Bilirubin 0.2 AST 8 L ALT 7 L Alkaline Phosphatase 74 Total Protein 6.7 Albumin 1.8 L IMAGING: * CT/CHEST CTA [id number] CT/ABDOMEN/PELVIS CTA W/WO CONTR Chest CT angiography Abdomen and pelvis CT angiography Clinical information given: evaluate for AAA rupture The exam consists of multiplanar imaging performed following the intravenous bolus of nonionic contrast. Arterial phase imaging only was obtained. As on a previous CT study of 12/18/2017 a fusiform infrarenal aortic aneurysm is noted with a 4.2 cm maximum transverse diameter. There is no CT evidence of aortic rupture or dissection. No retroperitoneal fluid or hematoma is visualized. At least partial occlusion of the right common iliac and right external iliac arteries is again noted. As the prior exam there is continuous concentric wall thickening involving the length of the transverse, descending, and sigmoid segments of the colon as well as the rectum consistent with persistent/recurrent colitis. A small amount of extraperitoneal fluid is again seen within the lower pelvis bilaterally. No evidence of pneumoperitoneum, free intraperitoneal fluid, abscess or bowel obstruction. The liver, spleen, pancreas , gallbladder, adrenal glands and kidneys demonstrate no obvious abnormality on the basis of arterial phase imaging only. There is no definite lymphadenopathy. No CT evidence of acute appendicitis or diverticulitis. No thoracic aortic aneurysm is identified. In comparison to a chest CT exam of 10/19/2017 there has been interval resolution of a lingular alveolar infiltrate. The remainder of the chest demonstrates no definite interval change. Bibasilar subpleural interstitial thickening is again noted which could be on the basis of atelectasis, pulmonary fibrosis and/or interstitial pulmonary vascular congestion. This latter appearance also appears essentially unchanged in comparison to a somewhat remote CT study of 06/28/2017 Cardiomegaly is again seen. There is no pericardial effusion. No definite thoracic lymphadenopathy is noted. Multiple thyroid nodules are seen without gross interval change. The visualized osseous structures of the chest, abdomen and pelvis demonstrate no obvious acute abnormality. IMPRESSION: Stable 4.2 cm infrarenal aortic aneurysm in comparison to a prior CT exam of 12/18/2017. Persistent/recurrent colitis. Findings are again seen within the chest which may be on the basis of discoid atelectasis, interstitial pulmonary vascular congestion and/or pulmonary fibrosis.. Cardiomegaly. As on the prior exam there is at least partial occlusion of the right common iliac and external iliac arteries. Reported By: Jay Riley MD 02/09/18 1448 MICROBIOLOGY: Microbiology 02/08/18 15:30 Blood - Peripheral Venous Blood Culture - Final NO GROWTH AFTER 5 DAYS INCUBATION 02/08/18 15:30 Blood - Peripheral Venous Blood Culture - Final NO GROWTH AFTER 5 DAYS INCUBATION 02/08/18 15:20 Stool Clostridium difficile Antigen (MARICARMEN) - Final 02/08/18 15:20 Stool Clostridium difficile Toxin Assay - Final 02/08/18 15:20 Stool Salmonella/Shigella Culture - Final NO GROWTH OF SALMONELLA OR SHIGELLA SPECIES OBTAINED 02/08/18 15:20 Stool Campylobacter Culture - Final NO GROWTH OF CAMPYLOBACTER SPECIES OBTAINED 02/08/18 15:20 Stool Yersinia Culture - Final NO GROWTH OF YERSINIA SPECIES OBTAINED 02/08/18 15:20 Stool Vibrio Culture - Final NO GROWTH OF VIBRIO SPECIES OBTAINED 02/08/18 15:20 Stool Escherichia coli 0157 Culture - Final NO GROWTH OF E COLI 0157 OBTAINED HOSPITAL COURSE: 72F smoker with h/o of htn, frequent falls, parkinsons/dystonia, pvd 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 and chronic LLE wound, AAA (4.7 cm), 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 Given her his history C.Diff stool studies were sent and were negative for C-DIFF toxin and antigen. Other stool studies as above were negative as well. CT imaging showed colitis and this was confirmed with Flex sig. She was started on Flagyl IV and transitioned to PO and will complete 10 day course. Her plavix was held initially for procedure but can be restarted upon discharge. Propanolol will also be restarted for rate control of AFIB. She has been instructed to resume all meds as previously prescribed. She will need surveillance of her AAA that is stable for now. Hyperthyroidism and parkinson were stable as well and she will resume home meds. She will follow up with GI to schedule colonoscopy to be done in 6-8 weeks. Instructed to return to ER if pain worsens, diarrhea returns and she develops fever or chills. Date of Admission:02/08/18 Date of Discharge: 02/17/18 Minutes to complete discharge: 42 Discharge Summary Reason For Visit: COLITIS Current Active Problems Colitis (Acute) Diarrhea (Acute) Condition: Improved - Instructions Diet, Activity, Other Instructions: You have been seen and treated for colitis. This inflammation of your small intestine is most likely a result of infection for which you will need to continue antibiotics. You will take antibiotic medication three times a day for 7 days. Please be sure to complete entire course. You will follow up with ID doctor in one week as well as your primary care doctor. You will also need a colonoscopy in 6-8 weeks for which you will need to follow up with in flight refueling operator in one week as well. Resume all home meds as previously prescribed. Increase activity as tolerated. Please resume a sodium controlled diet. If symptoms worsen, persist or you develop pain, fever or chills please return to ER immediately. Referrals: Manohar Ramirez MD [Primary Care Provider] - 1 Week Kenney Todd MD [Staff Physician] - 1 Week Fabrice Sanchez DO [Staff Physician] - 1 Week Disposition: HOME - Home Medications Comprehensive Discharge Medication List: Ambulatory Orders Acetaminophen 650 mg PO QID 11/25/17 Acetaminophen W/ Codeine #3 [Tylenol # 3 -] 1 tab PO TID 11/25/17 Amantadine HCl [Amantadine] 100 mg PO DAILY 11/25/17 Carbidopa/Levodopa [Rytary ER 36.25 mg-145 mg Cap] 1 each PO BID 11/25/17 Clopidogrel Bisulfate [Plavix] 75 mg PO DAILY 11/25/17 Diltiazem Cd [Cardizem Cd -] 180 mg PO DAILY 11/25/17 Lactobacillus Acidophilus [Acidophilus] 1 each PO DAILY 11/25/17 Multivit-Min/Iron Fum/Folic AC [Epiyu-Fyoeqai-Dwwowxrh Tablet] 1 each PO DAILY 11/25/17 Potassium Chloride [K-Dur -] 20 meq PO DAILY 11/25/17 Propranolol HCl 60 mg PO TID 11/25/17 Sodium,Potassium Phosphates [Phos-Nak Packet] 1 each PO TID 11/25/17 Amino Acids/Protein Hydrolys [Prosource No Carb Liquid Pkt] 30 ml PO BID@0800, 1730 packet 12/01/17 Magnesium Chloride [Slow-Mag -] 128 mg PO DAILY tablet.sa 12/01/17 Methimazole [Tapazole -] 20 mg PO Q12H tablet 12/01/17 Digoxin [Lanoxin -] 0.125 mg PO DAILY 12/18/17 Gabapentin [Neurontin -] 100 mg PO Q12H 12/18/17 Ferrous Sulfate 325 mg PO DAILY 02/08/18 Potassium Chloride 20 meq PO DAILY 02/08/18 metroNIDAZOLE [Metronidazole] 500 mg PO TID #21 tablet 02/17/18 Problem List - Problems (1) Colitis (2) Diarrhea (3) AAA (abdominal aortic aneurysm) Code(s): I71.4 - ABDOMINAL AORTIC ANEURYSM, WITHOUT RUPTURE Qualifiers: Presence of rupture: without rupture Qualified Code(s): I71.4 - Abdominal aortic aneurysm, without rupture (4) Afib (5) HTN (hypertension) (6) Hyperthyroidism (7) Parkinson disease (8) Peripheral vascular disease (9) Weakness This patient is new to me today: No Emergency Visit: Yes ED Registration Date: 02/08/18 Care time: The patient presented to the Emergency Department on the above date and was hospitalized for further evaluation of their emergent condition. Critical Care patient: No - Discharge Referral Referred to [facility] Med [facility] No
[2018-02-17] MEDS ORDERED: PT OWN MED DRAWER 7, Y5N ONE (22:01)
[2018-02-17] MEDS: ATORVASTATIN CA 20 MG TABLET (FP) PO SCH (22:03)
[2018-02-18] MEDS: AMINO ACIDS/PROTEIN HYDROLYS 30 ML LIQUID.PKT PO SCH ×2 (08:48→16:43)
[2018-02-18] MEDS: DIGOXIN 0.125 MG TABLET (FP) PO SCH (09:41)
[2018-02-18] MEDS: POTASSIUM CHLORIDE TABS 20 MEQ TABLET.ER (FP) PO SCH (09:41)
[2018-02-18] MEDS: LACTOBACILLUS ACIDOPHILUS 1 TABLET PO SCH (09:41)
[2018-02-18] MEDS: FERROUS SO4 325 MG TABLET (FP) PO SCH (09:41)
[2018-02-18] MEDS: GABAPENTIN 100 MG CAPSULE (FP) PO SCH (09:41)
[2018-02-18] MEDS: CLOPIDOGREL BISULFATE 75 MG TABLET (FP) PO SCH (09:41)
[2018-02-18] MEDS: ZINC SULFATE 220 MG CAPSULE (FP) PO SCH (09:41)
[2018-02-18] MEDS: MULTIVITAMINS THER W-MINERALS COMBO TABLET (FP) PO SCH (09:41)
[2018-02-18] MEDS: METHIMAZOLE 10 MG TABLET (FP) PO SCH (09:42)
[2018-02-18] MEDS: AMANTADINE HCL 100 MG TABLET PO SCH (09:43)
--- NOTE | 2018-02-18 11:46 | PN ---
Progress Note, Physician History of Present Illness: patient stable no dirrhoea had one bm - Current Medication List Current Medications: Active Medications Amantadine HCl (Symmetrel -) 100 mg PO DAILY [facility] Last Admin: 02/18/18 09:43 Dose: 100 mg Amino Acids (Prosource No Carb Liquid Pkt) 30 ml PO BID@0800,1730 [facility] Last Admin: 02/18/18 08:48 Dose: 30 ml Atorvastatin Calcium (Lipitor -) 20 mg PO HS [facility] Last Admin: 02/17/18 22:03 Dose: 20 mg Clopidogrel Bisulfate (Plavix -) 75 mg PO DAILY [facility] Last Admin: 02/18/18 09:41 Dose: 75 mg Digoxin (Lanoxin -) 0.125 mg PO DAILY [facility] Last Admin: 02/18/18 09:41 Dose: 0.125 mg Diltiazem HCl (Cardizem Cd -) 180 mg PO DAILY [facility] Last Admin: 02/18/18 11:12 Dose: 180 mg Ferrous Sulfate (Feosol -) 325 mg PO DAILY [facility] Last Admin: 02/18/18 09:41 Dose: 325 mg Gabapentin (Neurontin -) 100 mg PO BID [facility] Last Admin: 02/18/18 09:41 Dose: 100 mg Metronidazole (Flagyl 500mg Premixed Ivpb -) 500 mg in 100 mls @ 100 mls/hr IVPB Q8H-IV [facility] Last Admin: 02/18/18 09:42 Dose: 100 mls/hr Lactobacillus Acidophilus (Bacid -) 1 tab PO DAILY [facility] Last Admin: 02/18/18 09:41 Dose: 1 tab Methimazole (Tapazole -) 20 mg PO BID [facility] Last Admin: 02/18/18 09:42 Dose: 20 mg Multivitamins/Minerals (Theragran-M) 1 each PO DAILY [facility] Last Admin: 02/18/18 09:41 Dose: 1 each Non-Formulary Medication (Carbidopa/Levodopa [Rytary Er 36.25 Mg-145 Mg Cap]) 1 each PO BID [facility] Potassium Chloride (K-Dur -) 20 meq PO DAILY [facility] Last Admin: 02/18/18 09:41 Dose: 20 meq Zinc Sulfate (Orazinc -) 220 mg PO DAILY [facility] Last Admin: 02/18/18 09:41 Dose: 220 mg - Objective Vital Signs: Vital Signs Temperature 98.0 F 02/18/18 06:00 Pulse Rate 90 02/18/18 09:41 Respiratory Rate 18 02/18/18 06:00 Blood Pressure 102/62 02/18/18 06:00 O2 Sat by Pulse Oximetry (%) 97 02/17/18 21:00 Constitutional: Yes: No Distress, Calm Cardiovascular: Yes: S1, S2 Respiratory: Yes: Regular, CTA Bilaterally Gastrointestinal: Yes: Normal Bowel Sounds, Soft Musculoskeletal: Yes: WNL Extremities: Yes: WNL Neurological: Yes: Alert, Oriented Psychiatric: Yes: Alert, Oriented Labs: CBC, BMP 02/17/18 06:45 02/17/18 06:45 INR, PTT INR 1.13 (0.83-1.09) H 02/08/18 15:30 Assessment/Plan weakness dirrhoea cdiff history colitis plan oral flagyl rest as per the team
[2018-02-18] MEDS ORDERED: ACETAMINOPHEN 325 MG TABLET (FP) PO PRN (12:04)
--- NOTE | 2018-02-18 12:11 | PN ---
Progress Note (short form) - Note Progress Note: Chief Complaint: diarrhea History of Present Illness: no diarrhea. no palpit, sob, cp, leg swelling Current Medications Acetaminophen (Tylenol -) 650 mg PO Q4H PRN PRN Reason: PAIN Amantadine HCl (Symmetrel -) 100 mg PO DAILY [facility] Last Admin: 02/18/18 09:43 Dose: 100 mg Amino Acids (Prosource No Carb Liquid Pkt) 30 ml PO BID@0800,1730 [facility] Last Admin: 02/18/18 08:48 Dose: 30 ml Atorvastatin Calcium (Lipitor -) 20 mg PO HS [facility] Last Admin: 02/17/18 22:03 Dose: 20 mg Clopidogrel Bisulfate (Plavix -) 75 mg PO DAILY [facility] Last Admin: 02/18/18 09:41 Dose: 75 mg Digoxin (Lanoxin -) 0.125 mg PO DAILY [facility] Last Admin: 02/18/18 09:41 Dose: 0.125 mg Diltiazem HCl (Cardizem Cd -) 180 mg PO DAILY [facility] Last Admin: 02/18/18 11:12 Dose: 180 mg Ferrous Sulfate (Feosol -) 325 mg PO DAILY [facility] Last Admin: 02/18/18 09:41 Dose: 325 mg Gabapentin (Neurontin -) 100 mg PO BID [facility] Last Admin: 02/18/18 09:41 Dose: 100 mg Metronidazole (Flagyl 500mg Premixed Ivpb -) 500 mg in 100 mls @ 100 mls/hr IVPB Q8H-IV [facility] Last Admin: 02/18/18 09:42 Dose: 100 mls/hr Lactobacillus Acidophilus (Bacid -) 1 tab PO DAILY [facility] Last Admin: 02/18/18 09:41 Dose: 1 tab Methimazole (Tapazole -) 20 mg PO BID [facility] Last Admin: 02/18/18 09:42 Dose: 20 mg Multivitamins/Minerals (Theragran-M) 1 each PO DAILY [facility] Last Admin: 02/18/18 09:41 Dose: 1 each Non-Formulary Medication (Carbidopa/Levodopa [Rytary Er 36.25 Mg-145 Mg Cap]) 1 each PO BID [facility] Potassium Chloride (K-Dur -) 20 meq PO DAILY [facility] Last Admin: 02/18/18 09:41 Dose: 20 meq Zinc Sulfate (Orazinc -) 220 mg PO DAILY [facility] Last Admin: 02/18/18 09:41 Dose: 220 mg - Objective Vital Signs Period Temp Pulse Resp BP Sys/Watkins Pulse Ox Last 24 Hr 97.9 F-98.9 F 85-100 18-18 102-128/58-68 97-97 Constitutional: Yes: No Distress, Calm, Thin Cardiovascular: Yes: Pulse Irregular, S1, S2. No: Gallop, Murmur Respiratory: Yes: Regular, CTA Bilaterally. 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 ileus related to high dose diltiazem then--dose decr'd at that time, continue 180 qd dosing. - propranolol held here due to possible contribution to diarrhea - thus far HR remains reasonably controlled (lenient rate control strategy rec'd: i.e. resting HR <110 given pt tolerates this well with no sx's or HF issues) - if HR control worsens, can retry propranolol (same or lower dose) and reassess worsening diarrhea, per plan d/w'd GI - cont diltiazem, digoxin on discharge - not on AC due to risk of falls, cont plavix per prior tx plan Hyperthyroidism - on tapazole, holding propranolol as it may contribute to diarrhea - manage per primary team htn - controlled/low - cont current meds for rate control pvd/AAA/+ tobacco - on plavix outpatient, not on statin, will defer to outpatient md's. - smoking cessation counselled, CV benefits reviewed
[2018-02-18] MEDS ORDERED: PT OWN MED DRAWER 7, Y5N ONE (12:57)
[2018-02-18 15:40] VITALS: BP 100/58; PULSE 100; TEMP 98.2
== END 2018-02-18 18:42 | disposition home or self-care (01) | DRG 391 ==
LOC: JER 14:08 → JERBED 19:42 → J8W 21:20
PROVIDERS: ADMIT Internal Medicine; ATTEND Internal Medicine
PROC: 0DDN8ZX Extraction of Sigmoid Colon, Via Natural or Artificial Opening Endoscopic, Diagnostic (ICD-10-PCS; principal; 2018-02-11 12:30)
DX: K52.9 Noninfective gastroenteritis and colitis, unspecified (principal); E43 Unspecified severe protein-calorie malnutrition; R64 Cachexia; Z68.1 Body mass index [BMI] 19.9 or less, adult; G20 Parkinson's disease; I48.2 Chronic atrial fibrillation; T44.7X5A Adverse effect of beta-adrenoreceptor antagonists, initial encounter; E05.90 Thyrotoxicosis, unspecified without thyrotoxic crisis or storm; E78.00 Pure hypercholesterolemia, unspecified; Z89.422 Acquired absence of other left toe(s); Z87.891 Personal history of nicotine dependence; M47.895 Other spondylosis, thoracolumbar region; I73.9 Peripheral vascular disease, unspecified; I10 Essential (primary) hypertension; Z88.0 Allergy status to penicillin; D64.9 Anemia, unspecified; K64.4 Residual hemorrhoidal skin tags; K64.8 Other hemorrhoids
CPT/HCPCS: 36415; 71045-TC-FY; 71275-TC; 74174-TC; 80053; 80162; 81003; 81015; 82272; 82607; 82746; 83540; 83605; 83735; 84100; 84443; 85025; 85610; 85730; 86850; 86900; 86901; 87040; 87045; 87046; 87086; 87186; 87324; 87449; 88305-TC; 93005; 93010; 97116-GP; 97161-GP; 99284-25; J1644; J7030

== ENCOUNTER 2018-03-07 09:22 | Inpatient (IN) | payer OTHER ==
[2018-03-07 10:10] LABS: BASO % 0.5 % (0-2.0); EOS % 0.3 % (0-4.5); HEMATOCRIT 28.3 % (32.4-45.2); HEMOGLOBIN 9.5 GM/dL (10.7-15.3); LYMPH % 34.2 % (8-40); MCH 32.7 pg (25.7-33.7); MCHC 33.5 g/dl (32.0-36.0); MEAN CELL VOLUME 97.8 fl (80-96); MEAN PLT VOLUME 6.5 fl (7.5-11.1); MONO % 10.2 % (3.8-10.2); NEUT % 54.8 % (42.8-82.8); PLATELET COUNT 380 K/MM3 (134-434); RBC 2.89 M/mm3 (3.60-5.2); RDW 14.6 % (11.6-15.6); WHITE BLOOD COUNT 9.4 K/mm3 (4.0-10.0)
[2018-03-07 10:32] LABS: ALBUMIN 2.3 g/dl (3.4-5.0); ALK PHOS 70 U/L (45-117); ANION GAP 7 MMOL/L (8-16); BILIRUBIN,TOTAL 0.3 mg/dL (0.2-1); BLOOD UREA NITROGEN 12 mg/dL (7-18); CALCIUM 8.5 mg/dL (8.5-10.1); CHLORIDE 104 mmol/L (98-107); CO2 26 mmol/L (21-32); CREATININE 0.7 mg/dL (0.55-1.3); GLUCOSE,RANDOM 88 mg/dL (74-106); MAGNESIUM 1.6 mg/dL (1.8-2.4); SGOT/AST 12 U/L (15-37); SGPT/ALT 10 U/L (13-61); SODIUM 137 mmol/L (136-145); TOT PROT 7.8 g/dl (6.4-8.2)
[2018-03-07] MEDS ORDERED: MAGNESIUM SULF 50% (8.12 MEQ/2 ML-1 GM VIAL) IVPB ONE (10:38)
[2018-03-07 10:46] LABS: URINE APPEARANCE CLEAR; URINE BILIRUBIN NEGATIVE (<2.0 mg/dL); URINE COLOR LTYELLOW; URINE GLUCOSE (UA) NEGATIVE (NEGATIVE); URINE KETONE NEGATIVE (NEGATIVE); URINE LEUK ESTERASE 1+ (NEGATIVE); URINE NITRITE NEGATIVE (NEGATIVE); URINE PROTEIN NEGATIVE (NEGATIVE); URINE UROBILINOGEN NEGATIVE mg/dL (0.2-1.0)
[2018-03-07 10:50] LABS: EPI CELLS RARE /HPF (FEW)
--- NOTE | 2018-03-07 10:58 | PDOC ---
History of Present Illness - General Chief Complaint: Rectal Bleed Stated Complaint: BLOOD IN STOOL Time Seen by Provider: 03/07/18 09:36 History Source: Patient Exam Limitations: No Limitations - History of Present Illness Travel History: No Initial Comments: 03/07/18 09:56 72-year-old female with history of colitis presents to the emergency room with complaints of rectal bleeding intermittently for the past 5 days associated with generalized weakness. Patient denies fever, chills, nausea, or dizziness. Patient denies recent travel or recent weight change or recent change in diet. Patient denies hemorrhoids, rectal pressure or recent straining or constipation. Timing/Duration: reports: intermittent Pain Radiation: reports: no radiation Activities at Onset: reports: none Aggravating Factors: improves with: None Alleviating Factors: improves with: None Past History - Travel Traveled outside of the country in the last 30 days: No Close contact w/someone who was outside of country & ill: No - Past Medical History Allergies/Adverse Reactions: Allergies Allergy/AdvReac Type Severity Reaction Status Date / Time aspirin Allergy Verified 03/07/18 13:47 Penicillins Allergy Verified 03/07/18 13:47 Home Medications: Ambulatory Orders Amantadine HCl [Amantadine] 100 mg PO DAILY 11/25/17 Carbidopa/Levodopa [Rytary ER 36.25 mg-145 mg Cap] 1 each PO BID 11/25/17 Clopidogrel Bisulfate [Plavix] 75 mg PO DAILY 11/25/17 Diltiazem Cd [Cardizem Cd -] 180 mg PO DAILY 11/25/17 Lactobacillus Acidophilus [Acidophilus] 1 each PO DAILY 11/25/17 Potassium Chloride [K-Dur -] 20 meq PO DAILY 11/25/17 Propranolol HCl 60 mg PO TID 11/25/17 Sodium,Potassium Phosphates [Phos-Nak Packet] 1 each PO TID 11/25/17 Amino Acids/Protein Hydrolys [Prosource No Carb Liquid Pkt] 30 ml PO BID@0800, 1730 packet 12/01/17 Methimazole [Tapazole -] 20 mg PO Q12H tablet 12/01/17 Digoxin [Lanoxin -] 0.125 mg PO DAILY 12/18/17 Gabapentin [Neurontin -] 100 mg PO Q12H 12/18/17 Ferrous Sulfate 325 mg PO DAILY 02/08/18 Potassium Chloride 10 meq PO DAILY 02/08/18 Anemia: Yes Asthma: No Cancer: No Cardiac Disorders: Yes (afib, AAA) CVA: No COPD: No CHF: No DVT: No Dementia: No Diabetes: No GI Disorders: No Disorders: No HTN: Yes Hypercholesterolemia: Yes Liver Disease: No Seizures: No Thyroid Disease: No - Surgical History Abdominal Surgery: No Appendectomy: No Cardiac Surgery: No Cholecystectomy: No Lung Surgery: No Neurologic Surgery: No Orthopedic Surgery: No - Reproductive History LMP Normal: No - Immunization History Immunization Up to Date: Yes - Suicide/Smoking/Psychosocial Hx Smoking History: Unknown if ever smoked Have you smoked in the past 12 months: No Number of Cigarettes Smoked Daily: 5 If you are a former smoker, when did you quit?: august 2016 Information on smoking cessation initiated: No 'Breaking Loose' booklet given: 06/28/17 Hx Alcohol Use: No Drug/Substance Use Hx: No Substance Use Type: None Hx Substance Use Treatment: No Patient Lives Alone: No Lives with/in: spouse/SO Abd/GI Specific PMHX - Complaint Specific PMHX Colitis: Yes Review of Systems - Review of Systems Able to Perform ROS?: Yes Constitutional: Yes: Weakness. No: Loss of Appetite HEENTM: No: Symptoms Reported Respiratory: No: Symptoms reported Cardiac (ROS): No: Symptoms Reported ABD/GI: No: Symptoms Reported : No: Symptoms Reported Musculoskeletal: No: Symptoms Reported Integumentary: No: Symptoms Reported Neurological: Yes: Weakness Endocrine: No: Symptoms Reported Hematologic/Lymphatic: No: Symptoms Reported *Physical Exam - Vital Signs Last Vital Signs Temp Pulse Resp BP Pulse Ox 98.1 F 68 17 111/57 L 97 03/07/18 09:29 03/07/18 09:29 03/07/18 09:29 03/07/18 09:29 03/07/18 10:14 - Physical Exam General Appearance: Yes: Nourished, Appropriately Dressed. No: Apparent Distress HEENT: positive: EOMI, GRISEL, TMs Normal, Pharynx Normal, Pale Conjunctivae Neck: positive: Supple Respiratory/Chest: positive: Lungs Clear, Normal Breath Sounds. negative: Respiratory Distress, Accessory Muscle Use Cardiovascular: positive: Regular Rhythm, Regular Rate. negative: Murmur Gastrointestinal/Abdominal: positive: Soft. negative: Tenderness Rectal Exam: positive: normal rectal tone, heme positive stool (mucusy pink secretions). negative: hemorrhoids Extremity: positive: Normal Capillary Refill. negative: Pedal Edema Integumentary: positive: Normal Color, Warm, Pale Neurologic: positive: Motor Strength 5/5 (ambulatory) Moderate Sedation - Procedure Monitoring Vital Signs: Procedure Monitoring Vital Signs Temperature 98.1 F 03/07/18 09:29 Pulse Rate 68 03/07/18 09:29 Respiratory Rate 17 03/07/18 09:29 Blood Pressure 111/57 L 03/07/18 09:29 O2 Sat by Pulse Oximetry (%) 97 03/07/18 10:14 ED Treatment Course - LABORATORY CBC & Chemistry Diagram: 03/12/18 06:40 03/12/18 06:40 - ADDITIONAL ORDERS Additional order review: Laboratory Results 03/07/18 03/07/18 03/07/18 09:46 09:46 09:33 Sodium 137 Potassium 4.0 Chloride 104 Carbon Dioxide 26 Anion Gap 7 L BUN 12 Creatinine 0.7 Creat Clearance w eGFR > 60 Random Glucose 88 Lactic Acid 1.7 Calcium 8.5 Magnesium 1.6 L Total Bilirubin 0.3 AST 12 L ALT 10 L Alkaline Phosphatase 70 Total Protein 7.8 Albumin 2.3 L Stool Occult Blood Positive 03/07/18 09:57 RBC 2.89 L MCV 97.8 H MCHC 33.5 RDW 14.6 MPV 6.5 L Neutrophils % 54.8 D Lymphocytes % 34.2 D Monocytes % 10.2 Eosinophils % 0.3 Basophils % 0.5 - RADIOLOGY Radiology Studies Ordered: Category Date Time Status ABDOMEN & PELVIS CT WITH CONTR [CT] Stat CT Scan 03/07/18 09:50 Ordered Medical Decision Making - Medical Decision Making 03/07/18 11:02 CC: Rectal bleed x 5 days, recent dx of colitis Exam: appears pale and weak, noted pinkish secretions in vault Plan: labs, ua, guaic stool, and abd ct w/ contrast 03/07/18 11:05 Laboratory Tests 02/17/18 03/07/18 03/07/18 06:45 09:33 09:46 WBC RBC Hgb 9.9 L Hct MPV Sodium 137 Potassium 4.0 Chloride 104 Carbon Dioxide 26 BUN 12 Creatinine 0.7 Random Glucose 88 Lactic Acid Calcium 8.5 Magnesium 1.6 L AST 12 L ALT 10 L Alkaline Phosphatase 70 Total Protein 7.8 Albumin 2.3 L Stool Occult Blood Positive 03/07/18 03/07/18 09:46 09:57 WBC 9.4 RBC 2.89 L Hgb 9.5 L Hct 28.3 L MPV 6.5 L Sodium Potassium Chloride Carbon Dioxide BUN Creatinine Random Glucose Lactic Acid 1.7 Calcium Magnesium AST ALT Alkaline Phosphatase Total Protein Albumin Stool Occult Blood 03/07/18 13:54 CT shows persistent colitis involving the transverse versus: Descending and sigmoid colon down to the rectum though sigmoid junction without gross evidence of perforation extraluminal air or drainable collection. There is no change from the measurement of the abdominal aorta aneurysm measuring 4.3 cm. *DC/Admit/Observation/Transfer Diagnosis at time of Disposition: Rectal bleeding, Colitis, Hypomagnesemia - Discharge Dispostion Decision to Admit order: Yes - Referrals - Patient Instructions - Post Discharge Activity
[2018-03-07] MEDS ORDERED: MAGNESIUM 1GM/D5W - 2 GM/200 ML IVPB IVPB ONE (11:03)
[2018-03-07] MEDS ORDERED: CEFTRIAXONE 1 GM in DEXTROSE 5%-WATER - 50 ML IVPB ONE (11:41)
[2018-03-07] MEDS ORDERED: CEFTRIAXONE 1 GM/50 ML BAG ONE (12:08)
[2018-03-07] MEDS ORDERED: ACETAMINOPHEN 325 MG TABLET (FP) PO PRN (14:44)
[2018-03-07] MEDS ORDERED: LACTATED RINGERS SOLUTION 1,000 ML IV SCH (14:45)
--- NOTE | 2018-03-07 15:05 | HP ---
Admitting History and Physical - Primary Care Physician PCP: Manohar Ramirez - Admission Chief Complaint: I'm here for the same thing History of Present Illness: Ms Wilson is a very pleasant 72 year old female with chronic diarrhea who comes in with rectal bleeding and chronic diarrhea. She says that she has loose, watery stool at least 5 times a day. Over the past few days she has noted blood in her stool. She says it is streaks of blood, not a large amount and no clots. She does not note melena, stool is watery but normal color. She says the diarrhea has not gotten better since her last admission but since she has blood for the past 5 days in her stool she came in for further evaluation. Aside from the diarrhea and the blood she is without complaint. She denies fevers, chills, lightheadedness, dizziness, passing out, chest pain or pressure, nausea, vomiting, abdominal pain, anorexia, difficulty or pain on urination, or swelling in her legs. 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), Stent ( lle) - Smoking History Smoking history: Unknown if ever smoked Have you smoked in the past 12 months: No Aproximately how many cigarettes per day: 5 If you are a former smoker, when did you quit?: august 2016 - Alcohol/Substance Use Hx Alcohol Use: No History of Substance Use: reports: None - Social History Usual Living Arrangement: Yes: With Spouse ADL: Support Services 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 [employer] History of Recent Travel: No Home Medications - Allergies Allergies/Adverse Reactions: Allergies Allergy/AdvReac Type Severity Reaction Status Date / Time aspirin Allergy Verified 03/07/18 13:47 Penicillins Allergy Verified 03/07/18 13:47 - Home Medications Home Medications: Ambulatory Orders Amantadine HCl [Amantadine] 100 mg PO DAILY 11/25/17 Carbidopa/Levodopa [Rytary ER 36.25 mg-145 mg Cap] 1 each PO BID 11/25/17 Clopidogrel Bisulfate [Plavix] 75 mg PO DAILY 11/25/17 Diltiazem Cd [Cardizem Cd -] 180 mg PO DAILY 11/25/17 Lactobacillus Acidophilus [Acidophilus] 1 each PO DAILY 11/25/17 Potassium Chloride [K-Dur -] 20 meq PO DAILY 11/25/17 Propranolol HCl 60 mg PO TID 11/25/17 Sodium,Potassium Phosphates [Phos-Nak Packet] 1 each PO TID 11/25/17 Amino Acids/Protein Hydrolys [Prosource No Carb Liquid Pkt] 30 ml PO BID@0800, 1730 packet 12/01/17 Methimazole [Tapazole -] 20 mg PO Q12H tablet 12/01/17 Digoxin [Lanoxin -] 0.125 mg PO DAILY 12/18/17 Gabapentin [Neurontin -] 100 mg PO Q12H 12/18/17 Ferrous Sulfate 325 mg PO DAILY 02/08/18 Potassium Chloride 10 meq PO DAILY 02/08/18 Magnesium Chloride [Slow-Mag -] 71.5 mg PO DAILY 03/07/18 Family Disease History - Family Disease History Family History: Unremarkable Review of Systems Findings/Remarks: Full review of systems obtained, as per HPI and otherwise negative. Physical Examination Vital Signs: Vital Signs Temperature 36.7 C 03/07/18 09:29 Pulse Rate 68 03/07/18 09:29 Respiratory Rate 17 03/07/18 09:29 Blood Pressure 111/57 L 03/07/18 09:29 O2 Sat by Pulse Oximetry (%) 97 03/07/18 10:14 Constitutional: Yes: No Distress, Calm, Thin Eyes: Yes: Conjunctiva Clear, EOM Intact, PERRL HENT: Yes: Atraumatic, Normocephalic Cardiovascular: Yes: Pulse Irregular. No: Tachycardia, Gallop, Murmur, Rub Respiratory: Yes: Regular, CTA Bilaterally. No: Rales, Rhonchi, Wheezes Gastrointestinal: Yes: Normal Bowel Sounds, Soft. No: Distention, Tenderness Extremities: Yes: WNL Edema: No Labs: CBC, BMP 03/07/18 09:57 03/07/18 09:46 Imaging - Results Cat Scan: Report Reviewed Problem List - Problems (1) Colitis Assessment/Plan: -with chronic diarrhea -appears unchanged from previous admissions -will consult GI, however suspect this is chronic in nature -d/w GI options -checked c diff last time patient was here, will hold but will d/w GI if should recheck -given rocephin in the ED but will not continue at this time unless urine culture positive as has no symptoms Code(s): K52.9 - NONINFECTIVE GASTROENTERITIS AND COLITIS, UNSPECIFIED (2) Hypomagnesemia Assessment/Plan: -given magnesium in the ED -will recheck -will stop oral magnesium while here as can worsen diarrhea Code(s): E83.42 - HYPOMAGNESEMIA (3) Rectal bleeding Assessment/Plan: -suspect this is more from trauma of excessive stool than true GI bleed -H/H stable from last admission, however ? if aspect of hemoconcentration -will hydrate since losing fluid through diarrhea -check cbc tonight and in am -GI consulted Code(s): K62.5 - HEMORRHAGE OF ANUS AND RECTUM (4) Afib Assessment/Plan: -not on anticoagulation secondary to multiple episodes of GI bleeding -will continue plavix -continue cardizem -rate controlled Code(s): I48.91 - UNSPECIFIED ATRIAL FIBRILLATION Qualifiers: Atrial fibrillation type: chronic (5) HTN (hypertension) Assessment/Plan: -well controlled Code(s): I10 - ESSENTIAL (PRIMARY) HYPERTENSION Qualifiers: (6) Hyperthyroidism Assessment/Plan: -continue tapazole Code(s): E05.90 - THYROTOXICOSIS, UNSP WITHOUT THYROTOXIC CRISIS OR STORM (7) Hypokalemia Assessment/Plan: -currently has normal potassium -will continue supplementation since having diarrhea and expect insensible losses Code(s): E87.6 - HYPOKALEMIA (8) Parkinson disease Assessment/Plan: -continue home regimen Code(s): G20 - PARKINSON'S DISEASE (9) Peripheral vascular disease Assessment/Plan: -continue plavix Code(s): I73.9 - PERIPHERAL VASCULAR DISEASE, UNSPECIFIED (10) Severe malnutrition Assessment/Plan: -place on regular diet -secondary to chronic diarrhea Code(s): E43 - UNSPECIFIED SEVERE PROTEIN-CALORIE MALNUTRITION (11) AAA (abdominal aortic aneurysm) Assessment/Plan: -stable Code(s): I71.4 - ABDOMINAL AORTIC ANEURYSM, WITHOUT RUPTURE Qualifiers: Presence of rupture: without rupture
[2018-03-07] MEDS ORDERED: PT OWN MED DRAWER 7, Y5N ONE ×3 (17:13→20:46)
[2018-03-07] MEDS: SODIUM CHLORIDE 1,000 ML IV SCH (17:17)
[2018-03-07] MEDS: METHIMAZOLE 10 MG TABLET (FP) PO SCH (17:17)
[2018-03-07] MEDS: AMINO ACIDS/PROTEIN HYDROLYS 30 ML LIQUID.PKT PO SCH (17:17)
[2018-03-07] MEDS: GABAPENTIN 100 MG CAPSULE (FP) PO SCH (17:17)
[2018-03-07 19:12] LABS: HEMATOCRIT 27.3 % (32.4-45.2); HEMOGLOBIN 9.2 GM/dL (10.7-15.3); MCH 32.7 pg (25.7-33.7); MCHC 33.6 g/dl (32.0-36.0); MEAN CELL VOLUME 97.5 fl (80-96); MEAN PLT VOLUME 6.6 fl (7.5-11.1); PLATELET COUNT 365 K/MM3 (134-434); RDW 14.7 % (11.6-15.6); WHITE BLOOD COUNT 9.4 K/mm3 (4.0-10.0)
[2018-03-07] MEDS ORDERED: PATIENT'S OWN MEDICATION (NON-FORMULARY) (Carbidopa/Levodopa [Rytary Er 36.25 Mg-145 Mg Ca PO SCH (22:00)
[2018-03-07] MEDS ORDERED: PATIENT'S OWN MEDICATION (NON-FORMULARY) (Propranolol Hcl [Propranolol Hcl] 60 MG) PO SCH (22:00)
[2018-03-07] MEDS: PROPRANOLOL HCL PO SCH (22:34)
[2018-03-07] MEDS: NAPH,MB-DB/K PH,MBDB POWDER PACKET PO SCH (22:34)
--- NOTE | 2018-03-07 23:54 | CON.GI ---
Consult Consult Specialty:: GI Referred by:: Hospitalist Service Reason for Consultation:: Rectal Bleed - History of Present Illness Chief Complaint: Rectal bleed History of Present Illness: 72F admitted for evaluation of Rectal bleeding. She describes the bleeding as red blood on the toilet paper this morning and yesterday morning. She has had multiple admissions for diarrhea and rectal bleeding. She has a baseline anemia. Her last admission was 01/29, when she was BIBEMS for evaluation of tarry diarrhea. She underwent flex sig at that time (as she barely attempted bowel prep at that time) performed by Dr. Thalia Ferris that revealing erythematous, friable boggy mucosa in the sigmoid and descending colon consistent with colitis. She was evaluated by teacher of the deaf/hard of hearing Dr. Talib Herrera on two recent admissions prior to that time. In 11/08 he evaluated her for loose bowel movements. Apparently she had a C.Diff stool antigen study that was positive 10/19 and repeat 10/[address] scan 10/19/17 revealed normal stool burden, no evidence of colitis, dilated distal small bowel loop and normal appearing TI. 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 He reeveluated her 11/27/17 for loose bowel movements and felt she was not a candidate for endoscopic evaluation given her cardiac issues at the time. There has been no diarrhea reported today. CT scan 12/09 revealed thickening of the transverse colon down to the rectosigmoid c/w colitis. She was C. Diff toxin negative, antigen + and toxin PCR was positive. She was treated with PO vanco. She has a anemia spanning from 11/08. She has never had an EGD or colonoscopy. She does not know her family history as she is adopted. She states that overall her diarrhea has subsided. Current CT scan describes colitis involving the dista; descending colon down to the rectosigmoid junction. Ms. Falcon denies abdominal pain. there have been no fevers/chills reported. 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 [employer] Place of : [facility] History of Recent Travel: No Home Medications - Allergies Allergies/Adverse Reactions: Allergies Allergy/AdvReac Type Severity Reaction Status Date / Time aspirin Allergy Verified 03/07/18 13:47 Penicillins Allergy Verified 03/07/18 13:47 - Home Medications Home Medications: Ambulatory Orders Amantadine HCl [Amantadine] 100 mg PO DAILY 11/25/17 Carbidopa/Levodopa [Rytary ER 36.25 mg-145 mg Cap] 1 each PO BID 11/25/17 Clopidogrel Bisulfate [Plavix] 75 mg PO DAILY 11/25/17 Diltiazem Cd [Cardizem Cd -] 180 mg PO DAILY 11/25/17 Lactobacillus Acidophilus [Acidophilus] 1 each PO DAILY 11/25/17 Potassium Chloride [K-Dur -] 20 meq PO DAILY 11/25/17 Propranolol HCl 60 mg PO TID 11/25/17 Sodium,Potassium Phosphates [Phos-Nak Packet] 1 each PO TID 11/25/17 Amino Acids/Protein Hydrolys [Prosource No Carb Liquid Pkt] 30 ml PO BID@0800, 1730 packet 12/01/17 Methimazole [Tapazole -] 20 mg PO Q12H tablet 12/01/17 Digoxin [Lanoxin -] 0.125 mg PO DAILY 12/18/17 Gabapentin [Neurontin -] 100 mg PO Q12H 12/18/17 Ferrous Sulfate 325 mg PO DAILY 02/08/18 Potassium Chloride 10 meq PO DAILY 02/08/18 Magnesium Chloride [Slow-Mag -] 71.5 mg PO DAILY 03/07/18 Family Disease History - Family Disease History Other Family History: Patient adopted Review of Systems - Review of Systems Constitutional: denies: Chills, Fever, Unintentional Wgt. Loss Cardiovascular: denies: Chest Pain Respiratory: denies: SOB Gastrointestinal: reports: Diarrhea (Improved), Rectal Bleeding. denies: Abdominal Pain, Bloating, Constipation, Melena, Nausea, Vomiting, Vomiting Blood Physical Exam-GI Vital Signs: Vital Signs Temperature 98.7 F 03/07/18 18:00 Pulse Rate 92 H 03/07/18 18:00 Respiratory Rate 20 03/07/18 18:00 Blood Pressure 128/84 03/07/18 18:00 O2 Sat by Pulse Oximetry (%) 98 03/07/18 15:01 Constitutional: Yes: Calm Eyes: No: Sclera Icterus Cardiovascular: Yes: Pulse Irregular (regular rate) Respiratory: Yes: CTA Bilaterally Gastrointestinal Inspection: Yes: Scars (pelvic scar). No: Distention ...Auscultate: Yes: Normoactive Bowel Sounds ...Palpate: No: Hepatomegaly, Splenomegaly, Tenderness ...Percussion: No: Tympanitic ...Rectal Exam: Yes: Other (External skin tags, semiformed brown stool, guaiac + ) Edema: No (No LE edema) Neurological: Yes: Alert Labs: CBC, BMP 03/07/18 19:03 03/07/18 09:46 Hepatic Panel Total Bilirubin 0.3 mg/dL (0.2-1) 03/07/18 09:46 AST 12 U/L (15-37) L 03/07/18 09:46 ALT 10 U/L (13-61) L 03/07/18 09:46 Alkaline Phosphatase 70 U/L (45-117) 03/07/18 09:46 Albumin 2.3 g/dl (3.4-5.0) L 03/07/18 09:46 Imaging - Results Cat Scan: Report Reviewed, Image Reviewed Problem List - Problems (1) Rectal bleeding Assessment/Plan: Currently no rectaal bleeding colitis noted on prior exam and persistent from last month. Colitis also noted on CT scan 12/09. While the location could be suggestive of a left sided ischemic colitis, persistence of this finding goes against it. She also describes her diarrhea as improved. - Would check stool for C. Diff. If negative, attempt at colnoscopy could again be undertaken while Ms. Falcon is on Plavix. If significant lesions requiring removal, Plavix would need to be held for repeat colonoscopy Anusol suppository 1 SC daily for three days. Code(s): K62.5 - HEMORRHAGE OF ANUS AND RECTUM
[2018-03-08] MEDS: METHIMAZOLE 10 MG TABLET (FP) PO SCH ×2 (02:30→14:29)
[2018-03-08] MEDS: GABAPENTIN 100 MG CAPSULE (FP) PO SCH ×2 (02:30→14:29)
[2018-03-08] MEDS ORDERED: PT OWN MED DRAWER 7, Y5N ONE ×5 (05:23→21:06)
[2018-03-08] MEDS: PROPRANOLOL HCL PO SCH ×3 (06:07→21:31)
[2018-03-08] MEDS: NAPH,MB-DB/K PH,MBDB POWDER PACKET PO SCH ×3 (06:07→21:31)
[2018-03-08 07:40] LABS: BASO % 0.3 % (0-2.0); EOS % 0.3 % (0-4.5); HEMATOCRIT 27.4 % (32.4-45.2); HEMOGLOBIN 9.2 GM/dL (10.7-15.3); LYMPH % 25.1 % (8-40); MCH 32.9 pg (25.7-33.7); MCHC 33.4 g/dl (32.0-36.0); MEAN CELL VOLUME 98.5 fl (80-96); MEAN PLT VOLUME 6.8 fl (7.5-11.1); MONO % 9.4 % (3.8-10.2); NEUT % 64.9 % (42.8-82.8); PLATELET COUNT 364 K/MM3 (134-434); RBC 2.78 M/mm3 (3.60-5.2); RDW 14.6 % (11.6-15.6); WHITE BLOOD COUNT 9.4 K/mm3 (4.0-10.0)
[2018-03-08 08:13] LABS: ANION GAP 5 MMOL/L (8-16); BLOOD UREA NITROGEN 8 mg/dL (7-18); CALCIUM 8.2 mg/dL (8.5-10.1); CHLORIDE 105 mmol/L (98-107); CO2 28 mmol/L (21-32); CREATININE 0.6 mg/dL (0.55-1.3); GLUCOSE,RANDOM 75 mg/dL (74-106); PHOSPHOROUS 3.7 mg/dL (2.5-4.9); POTASSIUM 4.1 mmol/L (3.5-5.1); SODIUM 137 mmol/L (136-145)
[2018-03-08] MEDS: POTASSIUM CHLORIDE TABS 20 MEQ TABLET.ER (FP) PO SCH (10:06)
[2018-03-08] MEDS: DIGOXIN 0.125 MG TABLET (FP) PO SCH (10:06)
[2018-03-08] MEDS: FERROUS SO4 325 MG TABLET (FP) PO SCH (10:06)
[2018-03-08] MEDS: AMINO ACIDS/PROTEIN HYDROLYS 30 ML LIQUID.PKT PO SCH ×2 (10:06→17:04)
[2018-03-08] MEDS: CLOPIDOGREL BISULFATE 75 MG TABLET (FP) PO SCH (10:06)
[2018-03-08] MEDS: LACTOBACILLUS ACIDOPHILUS 1 TABLET PO SCH (10:06)
[2018-03-08] MEDS: AMANTADINE HCL 100 MG TABLET PO SCH (10:07)
--- NOTE | 2018-03-08 10:40 | PN ---
Progress Note, Physician Chief Complaint: Ms Wilson says she is not having diarrhea today. No cp, sob, n/v. - Current Medication List Current Medications: Active Medications Acetaminophen (Tylenol -) 650 mg PO Q4H PRN PRN Reason: PAIN Amantadine HCl (Symmetrel -) 100 mg PO DAILY [facility] Last Admin: 03/08/18 10:07 Dose: 100 mg Amino Acids (Prosource No Carb Liquid Pkt) 30 ml PO BID@0800,1730 [facility] Last Admin: 03/08/18 10:06 Dose: 30 ml Clopidogrel Bisulfate (Plavix -) 75 mg PO DAILY [facility] Last Admin: 03/08/18 10:06 Dose: 75 mg Digoxin (Lanoxin -) 0.125 mg PO DAILY [facility] Last Admin: 03/08/18 10:06 Dose: 0.125 mg Diltiazem HCl (Cardizem Cd -) 180 mg PO DAILY [facility] Last Admin: 03/08/18 10:06 Dose: 180 mg Ferrous Sulfate (Feosol -) 325 mg PO DAILY [facility] Last Admin: 03/08/18 10:06 Dose: 325 mg Gabapentin (Neurontin -) 100 mg PO Q12H [facility] Last Admin: 03/08/18 02:30 Dose: 100 mg Hydrocortisone Acetate (Anusol Hc Suppository -) 25 mg UT HS [facility] Stop: 03/11/18 21:59 Sodium Chloride (Normal Saline -) 1,000 mls @ 75 mls/hr IV ASDIR [facility] Last Admin: 03/07/18 17:17 Dose: 75 mls/hr Lactobacillus Acidophilus (Bacid -) 1 tab PO DAILY [facility] Last Admin: 03/08/18 10:06 Dose: 1 tab Methimazole (Tapazole -) 20 mg PO Q12H [facility] Last Admin: 03/08/18 02:30 Dose: 20 mg Non-Formulary Medication (Carbidopa/Levodopa [Rytary Er 36.25 Mg-145 Mg Cap]) 1 each PO BID [facility] Potassium Chloride (K-Dur -) 20 meq PO DAILY [facility] Last Admin: 03/08/18 10:06 Dose: 20 meq Potassium Phos/Sodium Phos (Phos-Nak Packet -) 1 packet PO TID [facility] Last Admin: 03/08/18 06:07 Dose: Not Given Propranolol HCl 20 mg/ (Propranolol HCl 40 mg) 60 mg PO TID [facility] Last Admin: 03/08/18 06:07 Dose: 60 mg - Objective Vital Signs: Vital Signs Temperature 36.7 C 03/08/18 05:50 Pulse Rate 85 03/08/18 10:06 Respiratory Rate 20 03/08/18 05:50 Blood Pressure 118/65 03/08/18 05:50 O2 Sat by Pulse Oximetry (%) 98 03/07/18 15:01 Constitutional: Yes: Well Nourished, No Distress, Calm Cardiovascular: Yes: Pulse Irregular. No: Tachycardia, Gallop, Murmur, Rub Respiratory: Yes: Regular, CTA Bilaterally. No: Rales, Rhonchi, Wheezes Gastrointestinal: Yes: Normal Bowel Sounds, Soft. No: Distention, Tenderness Extremities: Yes: WNL Edema: No Labs: CBC, BMP 03/08/18 07:15 03/08/18 07:15 Problem List - Problems (1) Colitis Code(s): K52.9 - NONINFECTIVE GASTROENTERITIS AND COLITIS, UNSPECIFIED (2) Hypomagnesemia Code(s): E83.42 - HYPOMAGNESEMIA (3) Rectal bleeding Code(s): K62.5 - HEMORRHAGE OF ANUS AND RECTUM (4) Afib Code(s): I48.91 - UNSPECIFIED ATRIAL FIBRILLATION Qualifiers: Atrial fibrillation type: chronic (5) HTN (hypertension) Code(s): I10 - ESSENTIAL (PRIMARY) HYPERTENSION Qualifiers: (6) Hyperthyroidism Code(s): E05.90 - THYROTOXICOSIS, UNSP WITHOUT THYROTOXIC CRISIS OR STORM (7) Hypokalemia Code(s): E87.6 - HYPOKALEMIA (8) Parkinson disease Code(s): G20 - PARKINSON'S DISEASE (9) Peripheral vascular disease Code(s): I73.9 - PERIPHERAL VASCULAR DISEASE, UNSPECIFIED (10) Severe malnutrition Code(s): E43 - UNSPECIFIED SEVERE PROTEIN-CALORIE MALNUTRITION (11) AAA (abdominal aortic aneurysm) Code(s): I71.4 - ABDOMINAL AORTIC ANEURYSM, WITHOUT RUPTURE Qualifiers: Presence of rupture: without rupture Assessment/Plan (1) Colitis Assessment/Plan: -case d/w GI -will check c diff -may need repeat colonoscopy Code(s): K52.9 - NONINFECTIVE GASTROENTERITIS AND COLITIS, UNSPECIFIED (2) Hypomagnesemia Assessment/Plan: -improved -monitor -hold oral magnesium as can worsen diarrhea Code(s): E83.42 - HYPOMAGNESEMIA (3) Rectal bleeding Assessment/Plan: -H/H stable -monitor Code(s): K62.5 - HEMORRHAGE OF ANUS AND RECTUM (4) Afib Assessment/Plan: -not on anticoagulation secondary to multiple episodes of GI bleeding -will continue plavix -continue cardizem -rate controlled Code(s): I48.91 - UNSPECIFIED ATRIAL FIBRILLATION Qualifiers: Atrial fibrillation type: chronic (5) HTN (hypertension) Assessment/Plan: -well controlled Code(s): I10 - ESSENTIAL (PRIMARY) HYPERTENSION Qualifiers: (6) Hyperthyroidism Assessment/Plan: -continue tapazole Code(s): E05.90 - THYROTOXICOSIS, UNSP WITHOUT THYROTOXIC CRISIS OR STORM (7) Hypokalemia Assessment/Plan: -currently has normal potassium -will continue supplementation since having diarrhea and expect insensible losses Code(s): E87.6 - HYPOKALEMIA (8) Parkinson disease Assessment/Plan: -continue home regimen Code(s): G20 - PARKINSON'S DISEASE (9) Peripheral vascular disease Assessment/Plan: -continue plavix Code(s): I73.9 - PERIPHERAL VASCULAR DISEASE, UNSPECIFIED (10) Severe malnutrition Assessment/Plan: -place on regular diet -secondary to chronic diarrhea Code(s): E43 - UNSPECIFIED SEVERE PROTEIN-CALORIE MALNUTRITION (11) AAA (abdominal aortic aneurysm) Assessment/Plan: -stable Code(s): I71.4 - ABDOMINAL AORTIC ANEURYSM, WITHOUT RUPTURE Qualifiers: Presence of rupture: without rupture
--- NOTE | 2018-03-08 12:21 | EKG ---
Test Reason : Blood Pressure : / mmHG Vent. Rate : 103 BPM Atrial Rate : 202 BPM P-R Int : 000 ms QRS Dur : 072 ms QT Int : 314 ms P-R-T Axes : 000 009 011 degrees QTc Int : 411 ms ATRIAL FIBRILLATION WITH RAPID VENTRICULAR RESPONSE LOW VOLTAGE QRS ABNORMAL ECG WHEN COMPARED WITH ECG OF 08-FEB-2018 15:05, VENT. RATE HAS INCREASED BY 46 BPM Confirmed by TRACEE JO MD ([id number]) on 03/08/2018 12:21:32 PM Referred By: Confirmed By:TRACEE JO MD
[2018-03-08] MEDS: SODIUM CHLORIDE 1,000 ML IV SCH (20:00)
[2018-03-08] MEDS: HYDROCORTISONE ACETATE 25 MG/SUPP.RECT PR SCH (21:32)
[2018-03-09] MEDS: GABAPENTIN 100 MG CAPSULE (FP) PO SCH ×2 (02:53→13:57)
[2018-03-09] MEDS: METHIMAZOLE 10 MG TABLET (FP) PO SCH ×2 (02:54→13:59)
[2018-03-09] MEDS: PROPRANOLOL HCL PO SCH ×3 (06:14→21:25)
[2018-03-09] MEDS: NAPH,MB-DB/K PH,MBDB POWDER PACKET PO SCH ×3 (06:14→21:25)
[2018-03-09] MEDS ORDERED: PT OWN MED DRAWER 7, Y5N ONE ×2 (06:22→21:16)
[2018-03-09 07:13] LABS: BASO % 0.4 % (0-2.0); EOS % 0.4 % (0-4.5); HEMATOCRIT 27.4 % (32.4-45.2); HEMOGLOBIN 8.5 GM/dL (10.7-15.3); LYMPH % 37.4 % (8-40); MCH 31.2 pg (25.7-33.7); MCHC 30.9 g/dl (32.0-36.0); MEAN CELL VOLUME 101.1 fl (80-96); MEAN PLT VOLUME 6.8 fl (7.5-11.1); MONO % 12.3 % (3.8-10.2); NEUT % 49.5 % (42.8-82.8); PLATELET COUNT 298 K/MM3 (134-434); RBC 2.71 M/mm3 (3.60-5.2); RDW 14.4 % (11.6-15.6); WHITE BLOOD COUNT 8.8 K/mm3 (4.0-10.0)
[2018-03-09 07:31] LABS: ANION GAP 4 MMOL/L (8-16); BLOOD UREA NITROGEN 9 mg/dL (7-18); CALCIUM 8.1 mg/dL (8.5-10.1); CHLORIDE 107 mmol/L (98-107); CO2 26 mmol/L (21-32); CREATININE 0.6 mg/dL (0.55-1.3); GLUCOSE,RANDOM 75 mg/dL (74-106); MAGNESIUM 1.8 mg/dL (1.8-2.4); PHOSPHOROUS 3.1 mg/dL (2.5-4.9); POTASSIUM 4.2 mmol/L (3.5-5.1); SODIUM 136 mmol/L (136-145)
[2018-03-09] MEDS: AMINO ACIDS/PROTEIN HYDROLYS 30 ML LIQUID.PKT PO SCH ×2 (08:41→17:27)
[2018-03-09] MEDS: LACTOBACILLUS ACIDOPHILUS 1 TABLET PO SCH (10:41)
[2018-03-09] MEDS: DIGOXIN 0.125 MG TABLET (FP) PO SCH (10:42)
[2018-03-09] MEDS: FERROUS SO4 325 MG TABLET (FP) PO SCH (10:42)
[2018-03-09] MEDS: CLOPIDOGREL BISULFATE 75 MG TABLET (FP) PO SCH (10:43)
[2018-03-09] MEDS: AMANTADINE HCL 100 MG TABLET PO SCH (10:43)
[2018-03-09] MEDS: POTASSIUM CHLORIDE TABS 20 MEQ TABLET.ER (FP) PO SCH (13:42)
--- NOTE | 2018-03-09 13:58 | PN ---
Progress Note, Physician Chief Complaint: Pt sitting in bed in no acute distress. Reports feeling well. No diarrhea today. Denies any chest pain, sob, n/v - Current Medication List Current Medications: Active Medications Acetaminophen (Tylenol -) 650 mg PO Q4H PRN PRN Reason: PAIN Amantadine HCl (Symmetrel -) 100 mg PO DAILY [facility] Last Admin: 03/09/18 10:43 Dose: 100 mg Amino Acids (Prosource No Carb Liquid Pkt) 30 ml PO BID@0800,1730 [facility] Last Admin: 03/09/18 08:41 Dose: 30 ml Clopidogrel Bisulfate (Plavix -) 75 mg PO DAILY [facility] Last Admin: 03/09/18 10:43 Dose: 75 mg Digoxin (Lanoxin -) 0.125 mg PO DAILY [facility] Last Admin: 03/09/18 10:42 Dose: 0.125 mg Diltiazem HCl (Cardizem Cd -) 180 mg PO DAILY [facility] Last Admin: 03/09/18 13:42 Dose: Not Given Ferrous Sulfate (Feosol -) 325 mg PO DAILY [facility] Last Admin: 03/09/18 10:42 Dose: 325 mg Gabapentin (Neurontin -) 100 mg PO Q12H [facility] Last Admin: 03/09/18 02:53 Dose: 100 mg Hydrocortisone Acetate (Anusol Hc Suppository -) 25 mg OR HS [facility] Stop: 03/11/18 21:59 Last Admin: 03/08/18 21:32 Dose: 25 mg Sodium Chloride (Normal Saline -) 1,000 mls @ 75 mls/hr IV ASDIR [facility] Last Admin: 03/08/18 20:00 Dose: 75 mls/hr Lactobacillus Acidophilus (Bacid -) 1 tab PO DAILY [facility] Last Admin: 03/09/18 10:41 Dose: 1 tab Methimazole (Tapazole -) 20 mg PO Q12H [facility] Last Admin: 03/09/18 02:54 Dose: 20 mg Non-Formulary Medication (Carbidopa/Levodopa [Rytary Er 36.25 Mg-145 Mg Cap]) 1 each PO BID [facility] Potassium Chloride (K-Dur -) 20 meq PO DAILY [facility] Last Admin: 03/09/18 13:42 Dose: Not Given Potassium Phos/Sodium Phos (Phos-Nak Packet -) 1 packet PO TID [facility] Last Admin: 03/09/18 06:14 Dose: 1 packet Propranolol HCl 20 mg/ (Propranolol HCl 40 mg) 60 mg PO TID [facility] Last Admin: 03/09/18 06:14 Dose: 60 mg - Objective Vital Signs: Vital Signs Temperature 97.0 F L 03/09/18 10:00 Pulse Rate 73 03/09/18 10:42 Respiratory Rate 16 03/09/18 10:00 Blood Pressure 92/41 L 03/09/18 10:00 O2 Sat by Pulse Oximetry (%) 95 03/09/18 09:00 Constitutional: Yes: No Distress, Calm, Thin Cardiovascular: Yes: Pulse Irregular Respiratory: Yes: Regular, CTA Bilaterally. No: Accessory Muscle Use, SOB, Tachypnea, Wheezes Gastrointestinal: Yes: WNL, Normal Bowel Sounds, Soft. No: Distention, Tenderness Genitourinary: Yes: WNL Extremities: Yes: WNL Edema: No Neurological: Yes: WNL, Alert, Oriented Psychiatric: Yes: WNL, Alert, Oriented Labs: CBC, BMP 03/09/18 06:15 03/09/18 06:15 Assessment/Plan (1) Colitis Assessment/Plan: CT- persistent colitis as prior cdiff negative no diarrhea today per pt colonoscopy wed per GI Code(s): K52.9 - NONINFECTIVE GASTROENTERITIS AND COLITIS, UNSPECIFIED (2) Rectal bleeding Assessment/Plan: improved suspect 2/2 colitis hg/hct slight drop monitor Code(s): K62.5 - HEMORRHAGE OF ANUS AND RECTUM (3) Atrial fibrillation Assessment/Plan: rate controlled continue home meds AC contraindicated 2/2 risk for falls Code(s): I48.91 - UNSPECIFIED ATRIAL FIBRILLATION (4) Chronic diarrhea Assessment/Plan: acute on chronic improved Code(s): K52.9 - NONINFECTIVE GASTROENTERITIS AND COLITIS, UNSPECIFIED (5) Occult blood in stools Assessment/Plan: 2/2 colitis Code(s): R19.5 - OTHER FECAL ABNORMALITIES (6) Parkinson disease Assessment/Plan: chronic dystonia, bradykinisia with intermittent confusion home med: rytary 36.25/145 2 caps bid outpt neurology f/u Code(s): G20 - PARKINSON'S DISEASE (7) Peripheral vascular disease Assessment/Plan: s/p angiogram, stent lle , 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 continue plavix Code(s): I73.9 - PERIPHERAL VASCULAR DISEASE, UNSPECIFIED (8) Severe malnutrition Assessment/Plan: ensure encourage po intake ensure supplements Code(s): E43 - UNSPECIFIED SEVERE PROTEIN-CALORIE MALNUTRITION (9) Dystonia Assessment/Plan: secondary to PD chronic Code(s): G24.9 - DYSTONIA, UNSPECIFIED (10) Hypophonia Assessment/Plan: secondary to PD chronic Code(s): R49.8 - OTHER VOICE AND RESONANCE DISORDERS (11) Hyperthyroidism Assessment/Plan: stable continue tapazole 20 bid outpt endocrine f/u Code(s): E05.90 - THYROTOXICOSIS, UNSP WITHOUT THYROTOXIC CRISIS OR STORM (12) HTN (hypertension) Assessment/Plan: controlled, tends to run low meds per parameters Code(s): I10 - ESSENTIAL (PRIMARY) HYPERTENSION Qualifiers: Hypertension type: essential hypertension Qualified Code(s): I10 - Essential (primary) hypertension (13) AAA (abdominal aortic aneurysm) Assessment/Plan: 4.8cm, chronic recommend close f/u with cardiology outpt Code(s): I71.4 - ABDOMINAL AORTIC ANEURYSM, WITHOUT RUPTURE Qualifiers: Presence of rupture: without rupture Qualified Code(s): I71.4 - Abdominal aortic aneurysm, without rupture (14) Hypomagnesemia Assessment/Plan: Mg 1.8 monitor bmp Code(s): E83.42 - HYPOMAGNESEMIA
--- NOTE | 2018-03-09 14:28 | PN ---
Progress Note (short form) - Note Progress Note: Patient seen and examined denies abdominal pain denies diarrhea CTVital Signs Temp 97.0 F L 03/09/18 10:00 Pulse 73 03/09/18 10:42 Resp 16 03/09/18 10:00 BP 92/41 L 03/09/18 10:00 Pulse Ox 95 03/09/18 09:00 NAD Abdomen soft NT ND CBC, BMP 03/09/18 06:15 03/09/18 06:15 CT report reviewed, persistent colitis of TC, DC, sigmoid colon Discussed with patient that needs colonoscopy to assess persistent colonic thickening. She is amenable to prep Provided no diarrhea in the next 24 hours, will plan the following: Clears tomorrow 238g Miralax prep in 64 oz gatorade starting at 4pm Tu03/10 Plan for colonoscopy 03/11
[2018-03-09 17:40] VITALS: BMI 19.1
[2018-03-09] MEDS: HYDROCORTISONE ACETATE 25 MG/SUPP.RECT PR SCH (21:25)
[2018-03-10] MEDS ORDERED: PT OWN MED DRAWER 7, Y5N ONE ×4 (01:49→21:08)
[2018-03-10] MEDS: METHIMAZOLE 10 MG TABLET (FP) PO SCH ×2 (02:08→14:05)
[2018-03-10] MEDS: GABAPENTIN 100 MG CAPSULE (FP) PO SCH ×2 (02:08→14:00)
[2018-03-10] MEDS: NAPH,MB-DB/K PH,MBDB POWDER PACKET PO SCH ×3 (05:59→21:47)
[2018-03-10 06:25] LABS: ANION GAP 4 MMOL/L (8-16); BLOOD UREA NITROGEN 8 mg/dL (7-18); CALCIUM 7.9 mg/dL (8.5-10.1); CHLORIDE 107 mmol/L (98-107); CO2 25 mmol/L (21-32); CREATININE 0.6 mg/dL (0.55-1.3); GLUCOSE,RANDOM 71 mg/dL (74-106); MAGNESIUM 1.4 mg/dL (1.8-2.4); POTASSIUM 3.8 mmol/L (3.5-5.1); SODIUM 137 mmol/L (136-145)
[2018-03-10 06:46] LABS: BASO % 0.5 % (0-2.0); EOS % 0.3 % (0-4.5); HEMATOCRIT 27.7 % (32.4-45.2); HEMOGLOBIN 9.3 GM/dL (10.7-15.3); LYMPH % 29.7 % (8-40); MCH 32.5 pg (25.7-33.7); MCHC 33.4 g/dl (32.0-36.0); MEAN CELL VOLUME 97.2 fl (80-96); MEAN PLT VOLUME 6.8 fl (7.5-11.1); MONO % 11.6 % (3.8-10.2); NEUT % 57.9 % (42.8-82.8); PLATELET COUNT 293 K/MM3 (134-434); RBC 2.84 M/mm3 (3.60-5.2); RDW 14.5 % (11.6-15.6); WHITE BLOOD COUNT 8.9 K/mm3 (4.0-10.0)
[2018-03-10] MEDS: AMINO ACIDS/PROTEIN HYDROLYS 30 ML LIQUID.PKT PO SCH ×2 (08:43→17:42)
--- NOTE | 2018-03-10 09:26 | PN ---
Progress Note (short form) - Note Progress Note: Spoke to Mr. Falcon today via telephone. Discussed plan for attempt at repeat colonoscopy tomorrow. Ms. Falcon was in agreement friday with this plan. He explained that she has continued to have copious diarrhea despite her description of an improvement. We discussed potential risks of the procedure like but not limited to bleeding, perforation requiring surgery to repair, infection, sedation medication effects all of which could be potentially life threatening. He has agreed to the procedure. Problem List - Problems (1) Rectal bleeding Code(s): K62.5 - HEMORRHAGE OF ANUS AND RECTUM
[2018-03-10] MEDS: FERROUS SO4 325 MG TABLET (FP) PO SCH (09:30)
[2018-03-10] MEDS: CLOPIDOGREL BISULFATE 75 MG TABLET (FP) PO SCH (09:30)
[2018-03-10] MEDS ORDERED: MAGNESIUM SULF 50% (8.12 MEQ/2 ML-1 GM VIAL) IVPB ONE ×2 (09:30→12:30)
[2018-03-10] MEDS: DIGOXIN 0.125 MG TABLET (FP) PO SCH (09:30)
[2018-03-10] MEDS: AMANTADINE HCL 100 MG TABLET PO SCH (09:31)
[2018-03-10] MEDS: POTASSIUM CHLORIDE TABS 20 MEQ TABLET.ER (FP) PO SCH (09:31)
[2018-03-10] MEDS: LACTOBACILLUS ACIDOPHILUS 1 TABLET PO SCH (09:33)
--- NOTE | 2018-03-10 12:02 | PN ---
Progress Note, Physician Chief Complaint: Pt sitting in bed in no acute distress. Reports feeling well. No diarrhea today. Denies any chest pain, sob, n/v - Current Medication List Current Medications: Active Medications Acetaminophen (Tylenol -) 650 mg PO Q4H PRN PRN Reason: PAIN Amantadine HCl (Symmetrel -) 100 mg PO DAILY [facility] Last Admin: 03/10/18 09:31 Dose: 100 mg Amino Acids (Prosource No Carb Liquid Pkt) 30 ml PO BID@0800,1730 [facility] Last Admin: 03/10/18 08:43 Dose: 30 ml Bisacodyl (Dulcolax -) 20 mg PO ONCE ONE Stop: 03/10/18 14:01 Clopidogrel Bisulfate (Plavix -) 75 mg PO DAILY [facility] Last Admin: 03/10/18 09:30 Dose: 75 mg Digoxin (Lanoxin -) 0.125 mg PO DAILY [facility] Last Admin: 03/10/18 09:30 Dose: 0.125 mg Diltiazem HCl (Cardizem Cd -) 180 mg PO DAILY [facility] Last Admin: 03/10/18 09:31 Dose: 180 mg Ferrous Sulfate (Feosol -) 325 mg PO DAILY [facility] Last Admin: 03/10/18 09:30 Dose: 325 mg Gabapentin (Neurontin -) 100 mg PO Q12H [facility] Last Admin: 03/10/18 02:08 Dose: 100 mg Hydrocortisone Acetate (Anusol Hc Suppository -) 25 mg RI HS [facility] Stop: 03/11/18 21:59 Last Admin: 03/09/18 21:25 Dose: 25 mg Lactobacillus Acidophilus (Bacid -) 1 tab PO DAILY [facility] Last Admin: 03/10/18 09:33 Dose: 1 tab Methimazole (Tapazole -) 20 mg PO Q12H [facility] Last Admin: 03/10/18 02:08 Dose: 20 mg Non-Formulary Medication (Carbidopa/Levodopa [Rytary Er 36.25 Mg-145 Mg Cap]) 1 each PO BID [facility] Polyethylene Glycol (Miralax (For Bowel Prep) -) 255 gm PO ONCE ONE Stop: 03/10/18 15:01 Potassium Chloride (K-Dur -) 20 meq PO DAILY [facility] Last Admin: 03/10/18 09:31 Dose: 20 meq Potassium Phos/Sodium Phos (Phos-Nak Packet -) 1 packet PO TID [facility] Last Admin: 03/10/18 05:59 Dose: 1 packet Propranolol HCl (Inderal -) 60 mg PO TID [facility] Last Admin: 03/10/18 05:59 Dose: 60 mg - Objective Vital Signs: Vital Signs Temperature 99.6 F 03/10/18 05:55 Pulse Rate 93 H 03/10/18 09:30 Respiratory Rate 18 03/10/18 05:55 Blood Pressure 126/72 03/10/18 05:55 O2 Sat by Pulse Oximetry (%) 97 03/09/18 21:00 Constitutional: Yes: No Distress, Calm, Thin Cardiovascular: Yes: Pulse Irregular Respiratory: Yes: WNL, Regular, CTA Bilaterally. No: Accessory Muscle Use, SOB , Tachypnea, Wheezes Gastrointestinal: Yes: WNL, Normal Bowel Sounds, Soft. No: Distention, Tenderness Genitourinary: Yes: WNL Edema: No Neurological: Yes: WNL, Alert, Oriented Psychiatric: Yes: WNL, Alert, Oriented Labs: CBC, BMP 03/10/18 05:30 03/10/18 05:30 Assessment/Plan (1) Colitis Assessment/Plan: improved cdiff negative no diarrhea today per pt colonoscopy wed per GI Code(s): K52.9 - NONINFECTIVE GASTROENTERITIS AND COLITIS, UNSPECIFIED (2) Rectal bleeding Assessment/Plan: improved suspect 2/2 colitis hg/hct stable monitor Code(s): K62.5 - HEMORRHAGE OF ANUS AND RECTUM (3) Atrial fibrillation Assessment/Plan: rate controlled continue home meds AC contraindicated 2/2 risk for falls Code(s): I48.91 - UNSPECIFIED ATRIAL FIBRILLATION (4) Chronic diarrhea Assessment/Plan: acute on chronic improved Code(s): K52.9 - NONINFECTIVE GASTROENTERITIS AND COLITIS, UNSPECIFIED (5) Occult blood in stools Assessment/Plan: 2/2 colitis Code(s): R19.5 - OTHER FECAL ABNORMALITIES (6) Parkinson disease Assessment/Plan: chronic dystonia, bradykinisia with intermittent confusion home med: rytary 36.25/145 2 caps bid outpt neurology f/u Code(s): G20 - PARKINSON'S DISEASE (7) Peripheral vascular disease Assessment/Plan: s/p angiogram, stent lle , 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 continue plavix Code(s): I73.9 - PERIPHERAL VASCULAR DISEASE, UNSPECIFIED (8) Severe malnutrition Assessment/Plan: ensure encourage po intake ensure supplements Code(s): E43 - UNSPECIFIED SEVERE PROTEIN-CALORIE MALNUTRITION (9) Dystonia Assessment/Plan: secondary to PD chronic Code(s): G24.9 - DYSTONIA, UNSPECIFIED (10) Hypophonia Assessment/Plan: secondary to PD chronic Code(s): R49.8 - OTHER VOICE AND RESONANCE DISORDERS (11) Hyperthyroidism Assessment/Plan: stable continue tapazole 20 bid outpt endocrine f/u Code(s): E05.90 - THYROTOXICOSIS, UNSP WITHOUT THYROTOXIC CRISIS OR STORM (12) HTN (hypertension) Assessment/Plan: controlled, tends to run low meds per parameters Code(s): I10 - ESSENTIAL (PRIMARY) HYPERTENSION Qualifiers: Hypertension type: essential hypertension Qualified Code(s): I10 - Essential (primary) hypertension (13) AAA (abdominal aortic aneurysm) Assessment/Plan: 4.8cm, chronic recommend close f/u with cardiology outpt Code(s): I71.4 - ABDOMINAL AORTIC ANEURYSM, WITHOUT RUPTURE Qualifiers: Presence of rupture: without rupture Qualified Code(s): I71.4 - Abdominal aortic aneurysm, without rupture (14) Hypomagnesemia Assessment/Plan: Mg 1.4 mg iv 2g x 2 runs Code(s): E83.42 - HYPOMAGNESEMIA
[2018-03-10] MEDS ORDERED: BISACODYL 5 MG TABLET.DR (FP) PO ONE (14:00)
[2018-03-10] MEDS ORDERED: POLYETHYLENE GLYCOL 3350 255 GM BTL PO ONE (15:00)
[2018-03-10] MEDS: HYDROCORTISONE ACETATE 25 MG/SUPP.RECT PR SCH (21:47)
[2018-03-11] MEDS: GABAPENTIN 100 MG CAPSULE (FP) PO SCH ×2 (02:34→13:52)
[2018-03-11] MEDS: METHIMAZOLE 10 MG TABLET (FP) PO SCH ×4 (02:34→23:03)
[2018-03-11] MEDS: NAPH,MB-DB/K PH,MBDB POWDER PACKET PO SCH ×3 (05:49→23:03)
[2018-03-11 06:48] LABS: BASO % 0.3 % (0-2.0); EOS % 0.4 % (0-4.5); HEMATOCRIT 30.3 % (32.4-45.2); HEMOGLOBIN 9.6 GM/dL (10.7-15.3); LYMPH % 26.8 % (8-40); MCHC 31.8 g/dl (32.0-36.0); MEAN CELL VOLUME 97.7 fl (80-96); MEAN PLT VOLUME 6.4 fl (7.5-11.1); MONO % 9.8 % (3.8-10.2); NEUT % 62.7 % (42.8-82.8); PLATELET COUNT 334 K/MM3 (134-434); RDW 13.9 % (11.6-15.6); WHITE BLOOD COUNT 9.4 K/mm3 (4.0-10.0)
[2018-03-11] MEDS: AMINO ACIDS/PROTEIN HYDROLYS 30 ML LIQUID.PKT PO SCH ×2 (07:18→17:22)
[2018-03-11 07:33] LABS: ANION GAP 7 MMOL/L (8-16); BLOOD UREA NITROGEN 6 mg/dL (7-18); CHLORIDE 102 mmol/L (98-107); CO2 25 mmol/L (21-32); CREATININE 0.6 mg/dL (0.55-1.3); GLUCOSE,RANDOM 70 mg/dL (74-106); MAGNESIUM 1.9 mg/dL (1.8-2.4); POTASSIUM 3.9 mmol/L (3.5-5.1); SODIUM 134 mmol/L (136-145)
[2018-03-11] MEDS ORDERED: ETOMIDATE 20 MG/10 ML AMPUL IVPUSH ONE (08:06)
[2018-03-11] MEDS: CLOPIDOGREL BISULFATE 75 MG TABLET (FP) PO SCH ×2 (09:00→12:51)
[2018-03-11] MEDS: LACTOBACILLUS ACIDOPHILUS 1 TABLET PO SCH ×2 (09:00→12:53)
[2018-03-11] MEDS: FERROUS SO4 325 MG TABLET (FP) PO SCH ×2 (09:00→12:53)
[2018-03-11] MEDS: POTASSIUM CHLORIDE TABS 20 MEQ TABLET.ER (FP) PO SCH ×2 (09:00→12:52)
[2018-03-11] MEDS: AMANTADINE HCL 100 MG TABLET PO SCH ×2 (09:00→12:55)
[2018-03-11] MEDS: DIGOXIN 0.125 MG TABLET (FP) PO SCH ×2 (09:00→12:51)
[2018-03-11] MEDS ORDERED: PT OWN MED DRAWER 7, Y5N ONE ×2 (11:43→22:32)
--- NOTE | 2018-03-11 15:36 | PN ---
Progress Note, Physician Chief Complaint: Pt sitting in bed in no acute distress. Reports feeling well. No diarrhea. tolerating diet. Denies any chest pain, sob, n/v - Current Medication List Current Medications: Active Medications Acetaminophen (Tylenol -) 650 mg PO Q4H PRN PRN Reason: PAIN Amantadine HCl (Symmetrel -) 100 mg PO DAILY [facility] Last Admin: 03/11/18 12:55 Dose: 100 mg Amino Acids (Prosource No Carb Liquid Pkt) 30 ml PO BID@0800,1730 [facility] Last Admin: 03/11/18 07:18 Dose: Not Given Clopidogrel Bisulfate (Plavix -) 75 mg PO DAILY [facility] Last Admin: 03/11/18 12:51 Dose: 75 mg Digoxin (Lanoxin -) 0.125 mg PO DAILY [facility] Last Admin: 03/11/18 12:51 Dose: 0.125 mg Diltiazem HCl (Cardizem Cd -) 180 mg PO DAILY [facility] Last Admin: 03/11/18 12:51 Dose: 180 mg Ferrous Sulfate (Feosol -) 325 mg PO DAILY [facility] Last Admin: 03/11/18 12:53 Dose: 325 mg Gabapentin (Neurontin -) 100 mg PO Q12H [facility] Last Admin: 03/11/18 13:52 Dose: 100 mg Hydrocortisone Acetate (Anusol Hc Suppository -) 25 mg [place] HS [facility] Stop: 03/11/18 21:59 Last Admin: 03/10/18 21:47 Dose: 25 mg Lactobacillus Acidophilus (Bacid -) 1 tab PO DAILY [facility] Last Admin: 03/11/18 12:53 Dose: 1 tab Methimazole (Tapazole -) 20 mg PO BID [facility] Last Admin: 03/11/18 12:53 Dose: 20 mg Non-Formulary Medication (Carbidopa/Levodopa [Rytary Er 36.25 Mg-145 Mg Cap]) 1 each PO BID [facility] Potassium Chloride (K-Dur -) 20 meq PO DAILY [facility] Last Admin: 03/11/18 12:52 Dose: 20 meq Potassium Phos/Sodium Phos (Phos-Nak Packet -) 1 packet PO TID [facility] Last Admin: 03/11/18 13:52 Dose: 1 packet Propranolol HCl (Inderal -) 60 mg PO TID [facility] Last Admin: 03/11/18 13:52 Dose: 60 mg - Objective Vital Signs: Vital Signs Temperature 98.0 F 03/11/18 14:00 Pulse Rate 100 H 03/11/18 14:00 Respiratory Rate 21 H 03/11/18 14:00 Blood Pressure 126/84 03/11/18 14:00 O2 Sat by Pulse Oximetry (%) 100 03/11/18 09:45 Constitutional: Yes: No Distress, Calm, Thin Cardiovascular: Yes: Pulse Irregular Respiratory: Yes: WNL, Regular, CTA Bilaterally. No: Accessory Muscle Use, SOB , Tachypnea, Wheezes Gastrointestinal: Yes: WNL, Normal Bowel Sounds, Soft. No: Distention, Tenderness Genitourinary: Yes: WNL Extremities: Yes: WNL Edema: No Neurological: Yes: WNL, Alert, Oriented Psychiatric: Yes: WNL, Alert, Oriented Labs: CBC, BMP 03/11/18 06:30 03/11/18 06:30 Assessment/Plan (1) Colitis Assessment/Plan: improved cdiff negative s/p colonoscopy, pending result GI following Code(s): K52.9 - NONINFECTIVE GASTROENTERITIS AND COLITIS, UNSPECIFIED (2) Rectal bleeding Assessment/Plan: resolved Code(s): K62.5 - HEMORRHAGE OF ANUS AND RECTUM (3) Atrial fibrillation Assessment/Plan: rate controlled continue home meds AC contraindicated 2/2 risk for falls Code(s): I48.91 - UNSPECIFIED ATRIAL FIBRILLATION (4) Chronic diarrhea Assessment/Plan: acute on chronic improved Code(s): K52.9 - NONINFECTIVE GASTROENTERITIS AND COLITIS, UNSPECIFIED (5) Occult blood in stools Assessment/Plan: 2/2 colitis Code(s): R19.5 - OTHER FECAL ABNORMALITIES (6) Parkinson disease Assessment/Plan: chronic dystonia, bradykinisia with intermittent confusion home med: rytary 36.25/145 2 caps bid outpt neurology f/u Code(s): G20 - PARKINSON'S DISEASE (7) Peripheral vascular disease Assessment/Plan: s/p angiogram, stent lle , 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 continue plavix Code(s): I73.9 - PERIPHERAL VASCULAR DISEASE, UNSPECIFIED (8) Severe malnutrition Assessment/Plan: ensure encourage po intake ensure supplements Code(s): E43 - UNSPECIFIED SEVERE PROTEIN-CALORIE MALNUTRITION (9) Dystonia Assessment/Plan: secondary to PD chronic Code(s): G24.9 - DYSTONIA, UNSPECIFIED (10) Hypophonia Assessment/Plan: secondary to PD chronic Code(s): R49.8 - OTHER VOICE AND RESONANCE DISORDERS (11) Hyperthyroidism Assessment/Plan: stable continue tapazole 20 bid outpt endocrine f/u Code(s): E05.90 - THYROTOXICOSIS, UNSP WITHOUT THYROTOXIC CRISIS OR STORM (12) HTN (hypertension) Assessment/Plan: controlled, tends to run low meds per parameters Code(s): I10 - ESSENTIAL (PRIMARY) HYPERTENSION Qualifiers: Hypertension type: essential hypertension Qualified Code(s): I10 - Essential (primary) hypertension (13) AAA (abdominal aortic aneurysm) Assessment/Plan: 4.8cm, chronic recommend close f/u with cardiology outpt Code(s): I71.4 - ABDOMINAL AORTIC ANEURYSM, WITHOUT RUPTURE Qualifiers: Presence of rupture: without rupture Qualified Code(s): I71.4 - Abdominal aortic aneurysm, without rupture (14) Hypomagnesemia Assessment/Plan: improved Code(s): E83.42 - HYPOMAGNESEMIA Dispo: PENDING GI CLEARANCE. PT JHOANAL
--- NOTE | 2018-03-11 16:52 | PN ---
Progress Note (short form) - Note Progress Note: Brief GI note Colonoscopy performed today revealing circumferential nodular thickening in the rectum and rectosigmoid, could not advance the scope beyond this area due to narrowing and friability, multiple biopsies taken r/o malignancy vs inflammatory etiology. Recommend check CEA levels and CT chest for completion as concern for malignant process, and oncology and surgery evaluation pending biopsy results. Discussed above with medicine team.
[2018-03-12] MEDS: GABAPENTIN 100 MG CAPSULE (FP) PO SCH ×2 (03:00→13:44)
[2018-03-12] MEDS: NAPH,MB-DB/K PH,MBDB POWDER PACKET PO SCH ×3 (06:38→22:17)
[2018-03-12 08:13] LABS: ANION GAP 6 MMOL/L (8-16); BLOOD UREA NITROGEN 11 mg/dL (7-18); CHLORIDE 107 mmol/L (98-107); CO2 24 mmol/L (21-32); CREATININE 0.7 mg/dL (0.55-1.3); GLUCOSE,RANDOM 85 mg/dL (74-106); POTASSIUM 3.7 mmol/L (3.5-5.1); SODIUM 137 mmol/L (136-145)
[2018-03-12 08:28] LABS: BASO % 0.3 % (0-2.0); EOS % 0.3 % (0-4.5); HEMATOCRIT 29.6 % (32.4-45.2); LYMPH % 27.6 % (8-40); MCH 32.6 pg (25.7-33.7); MCHC 33.6 g/dl (32.0-36.0); MEAN CELL VOLUME 96.9 fl (80-96); MEAN PLT VOLUME 6.8 fl (7.5-11.1); MONO % 10.3 % (3.8-10.2); NEUT % 61.5 % (42.8-82.8); PLATELET COUNT 342 K/MM3 (134-434); RBC 3.06 M/mm3 (3.60-5.2)
[2018-03-12] MEDS ORDERED: PT OWN MED DRAWER 7, Y5N ONE ×3 (10:01→21:43)
[2018-03-12] MEDS: FERROUS SO4 325 MG TABLET (FP) PO SCH (10:02)
[2018-03-12] MEDS: CLOPIDOGREL BISULFATE 75 MG TABLET (FP) PO SCH (10:02)
[2018-03-12] MEDS: AMINO ACIDS/PROTEIN HYDROLYS 30 ML LIQUID.PKT PO SCH ×2 (10:02→16:56)
[2018-03-12] MEDS: LACTOBACILLUS ACIDOPHILUS 1 TABLET PO SCH (10:02)
[2018-03-12] MEDS: DIGOXIN 0.125 MG TABLET (FP) PO SCH (10:02)
[2018-03-12] MEDS: POTASSIUM CHLORIDE TABS 20 MEQ TABLET.ER (FP) PO SCH (10:03)
[2018-03-12] MEDS: AMANTADINE HCL 100 MG TABLET PO SCH (10:03)
[2018-03-12] MEDS: METHIMAZOLE 10 MG TABLET (FP) PO SCH ×2 (10:04→22:17)
--- NOTE | 2018-03-12 12:04 | DS ---
Physical Examination Vital Signs: Vital Signs Temperature 98.1 F 03/12/18 10:00 Pulse Rate 87 03/12/18 10:02 Respiratory Rate 20 03/12/18 10:00 Blood Pressure 134/76 03/12/18 10:00 O2 Sat by Pulse Oximetry (%) 95 03/11/18 21:00 Labs: CBC, BMP 03/12/18 06:40 03/12/18 06:40 Discharge Summary Reason For Visit: RECTAL HEMORRHAGE Current Active Problems Colitis (Acute) Hypomagnesemia (Acute) Rectal bleeding (Acute) - Instructions Diet, Activity, Other Instructions: resume activity, diet as tolerated follow up with GI regarding colonoscopy biopsy results and blood work Referrals: Manohar Ramirez MD [Primary Care Provider] - 1 Week Fabrice Sanchez DO [Staff Physician] - 1 Week (follow up biopsy results ) Aris Shapre MD [Staff Physician] - 2 Weeks Disposition: VNS/HOME HEALTH CARE - Home Medications Comprehensive Discharge Medication List: Ambulatory Orders Amantadine HCl [Amantadine] 100 mg PO DAILY 11/25/17 Carbidopa/Levodopa [Rytary ER 36.25 mg-145 mg Cap] 1 each PO BID 11/25/17 Clopidogrel Bisulfate [Plavix] 75 mg PO DAILY 11/25/17 Diltiazem Cd [Cardizem Cd -] 180 mg PO DAILY 11/25/17 Lactobacillus Acidophilus [Acidophilus] 1 each PO DAILY 11/25/17 Potassium Chloride [K-Dur -] 20 meq PO DAILY 11/25/17 Propranolol HCl 60 mg PO TID 11/25/17 Sodium,Potassium Phosphates [Phos-Nak Packet] 1 each PO TID 11/25/17 Amino Acids/Protein Hydrolys [Prosource No Carb Liquid Pkt] 30 ml PO BID@0800, 1730 packet 12/01/17 Methimazole [Tapazole -] 20 mg PO Q12H tablet 12/01/17 Digoxin [Lanoxin -] 0.125 mg PO DAILY 12/18/17 Gabapentin [Neurontin -] 100 mg PO Q12H 12/18/17 Ferrous Sulfate 325 mg PO DAILY 02/08/18 Potassium Chloride 10 meq PO DAILY 02/08/18
--- NOTE | 2018-03-12 12:34 | PN ---
Progress Note (short form) - Note Progress Note: Colonosocpy results noted. Dr. Gutierrez unable to pass pediatric colonoscope past resctosigmoid due to significant narrowing/ Awaiting pathology results. Would obtain surgical consult. No definitive diagnosis as of yet. Could start 5 -ASA agent if ? aspirin allergy clarified. Problem List - Problems (1) Rectal bleeding Code(s): K62.5 - HEMORRHAGE OF ANUS AND RECTUM
--- NOTE | 2018-03-12 12:47 | PN ---
Progress Note, Physician Chief Complaint: Pt sitting in bed in no acute distress. Reports feeling well. No diarrhea. tolerating diet. Denies any chest pain, sob, n/v - Current Medication List Current Medications: Active Medications Acetaminophen (Tylenol -) 650 mg PO Q4H PRN PRN Reason: PAIN Amantadine HCl (Symmetrel -) 100 mg PO DAILY [facility] Last Admin: 03/12/18 10:03 Dose: 100 mg Amino Acids (Prosource No Carb Liquid Pkt) 30 ml PO BID@0800,1730 [facility] Last Admin: 03/12/18 10:02 Dose: 30 ml Clopidogrel Bisulfate (Plavix -) 75 mg PO DAILY [facility] Last Admin: 03/12/18 10:02 Dose: 75 mg Digoxin (Lanoxin -) 0.125 mg PO DAILY [facility] Last Admin: 03/12/18 10:02 Dose: 0.125 mg Diltiazem HCl (Cardizem Cd -) 180 mg PO DAILY [facility] Last Admin: 03/12/18 10:02 Dose: 180 mg Ferrous Sulfate (Feosol -) 325 mg PO DAILY [facility] Last Admin: 03/12/18 10:02 Dose: 325 mg Gabapentin (Neurontin -) 100 mg PO Q12H [facility] Last Admin: 03/12/18 03:00 Dose: Not Given Lactobacillus Acidophilus (Bacid -) 1 tab PO DAILY [facility] Last Admin: 03/12/18 10:02 Dose: 1 tab Methimazole (Tapazole -) 20 mg PO BID [facility] Last Admin: 03/12/18 10:04 Dose: 20 mg Non-Formulary Medication (Carbidopa/Levodopa [Rytary Er 36.25 Mg-145 Mg Cap]) 1 each PO BID [facility] Potassium Chloride (K-Dur -) 20 meq PO DAILY [facility] Last Admin: 03/12/18 10:03 Dose: 20 meq Potassium Phos/Sodium Phos (Phos-Nak Packet -) 1 packet PO TID [facility] Last Admin: 03/12/18 06:38 Dose: 1 packet Propranolol HCl (Inderal -) 60 mg PO TID [facility] Last Admin: 03/12/18 06:37 Dose: 60 mg - Objective Vital Signs: Vital Signs Temperature 98.1 F 03/12/18 10:00 Pulse Rate 87 03/12/18 10:02 Respiratory Rate 20 03/12/18 10:00 Blood Pressure 134/76 03/12/18 10:00 O2 Sat by Pulse Oximetry (%) 95 03/11/18 21:00 Constitutional: Yes: No Distress, Calm, Thin Cardiovascular: Yes: Pulse Irregular Respiratory: Yes: WNL, Regular, CTA Bilaterally. No: Accessory Muscle Use, SOB , Tachypnea, Wheezes Gastrointestinal: Yes: Normal Bowel Sounds, Soft. No: Distention, Tenderness Genitourinary: Yes: WNL Musculoskeletal: Yes: WNL Extremities: Yes: WNL Edema: No Neurological: Yes: Alert, Oriented, Confusion (intermittent). No: Tingling, Tremors Psychiatric: Yes: Alert Labs: CBC, BMP 03/12/18 06:40 03/12/18 06:40 Assessment/Plan (2) S/P colonoscopy Assessment/Plan: s/p colonoscopy, biopsy- unable to advance scope due to nodular thickening, suspicious for malignancy, biopsy pending suspect chronic colonic inflammatory changes from prev cdiff infections as well hold plavix tumor markers sent surgery consulted recent CTA chest 01/2018 without acute changes recommend oncology evaluation and further work up pending biopsy results case discussed with GI Code(s): Z98.890 - OTHER SPECIFIED POSTPROCEDURAL STATES (2) Colonic obstruction Assessment/Plan: r/o malignancy Code(s): K56.609 - UNSP INTESTNL OBST, UNSP TO PARTIAL VERSUS COMPLETE OBST (3) Colitis Assessment/Plan: recurrent colitis on abd ct cdiff negative defer further management to GI Code(s): K52.9 - NONINFECTIVE GASTROENTERITIS AND COLITIS, UNSPECIFIED (4) Rectal bleeding Assessment/Plan: resolved Code(s): K62.5 - HEMORRHAGE OF ANUS AND RECTUM (5) Atrial fibrillation Assessment/Plan: rate controlled continue home meds AC contraindicated 2/2 risk for falls Code(s): I48.91 - UNSPECIFIED ATRIAL FIBRILLATION (6) Chronic diarrhea Assessment/Plan: improved Code(s): K52.9 - NONINFECTIVE GASTROENTERITIS AND COLITIS, UNSPECIFIED (7) Occult blood in stools Assessment/Plan: hg/hct stable Code(s): R19.5 - OTHER FECAL ABNORMALITIES (8) Parkinson disease Assessment/Plan: chronic dystonia, bradykinisia with intermittent confusion home med: rytary 36.25/145 2 caps bid outpt neurology f/u Code(s): G20 - PARKINSON'S DISEASE (9) Peripheral vascular disease Assessment/Plan: s/p angiogram, stent lle , 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 hold plavix x 7 days Code(s): I73.9 - PERIPHERAL VASCULAR DISEASE, UNSPECIFIED (10) Severe malnutrition Assessment/Plan: ensure encourage po intake ensure supplements Code(s): E43 - UNSPECIFIED SEVERE PROTEIN-CALORIE MALNUTRITION (11) Dystonia Assessment/Plan: secondary to PD chronic Code(s): G24.9 - DYSTONIA, UNSPECIFIED (12) Hypophonia Assessment/Plan: secondary to PD chronic Code(s): R49.8 - OTHER VOICE AND RESONANCE DISORDERS (13) Hyperthyroidism Assessment/Plan: stable continue tapazole 20 bid outpt endocrine f/u Code(s): E05.90 - THYROTOXICOSIS, UNSP WITHOUT THYROTOXIC CRISIS OR STORM (14) HTN (hypertension) Assessment/Plan: controlled meds per parameters Code(s): I10 - ESSENTIAL (PRIMARY) HYPERTENSION Qualifiers: Hypertension type: essential hypertension Qualified Code(s): I10 - Essential (primary) hypertension (15) AAA (abdominal aortic aneurysm) Assessment/Plan: 4.8cm, chronic recommend close f/u with cardiology outpt Code(s): I71.4 - ABDOMINAL AORTIC ANEURYSM, WITHOUT RUPTURE Qualifiers: Presence of rupture: without rupture Qualified Code(s): I71.4 - Abdominal aortic aneurysm, without rupture (16) Hypomagnesemia Assessment/Plan: improved Code(s): E83.42 - HYPOMAGNESEMIA Dispo: PENDING GI CLEARANCE. Case discussed with GI, await biopsy results, surgery consult, defer initiation of ASA/further management of possible colonic obstruction to GI. Informed pt's of the plan
--- NOTE | 2018-03-12 15:48 | CONSULT ---
Consult Consult Specialty:: General Surgery Reason for Consultation:: rectal mass - History of Present Illness Chief Complaint: rectal mass? History of Present Illness: 72yo female MMP admitted for evaluation of Rectal bleeding. She has had multiple admissions for diarrhea and rectal bleeding. She has a baseline anemia. Her last admission was 01/29, when she was BIBEMS for evaluation of tarry diarrhea. She had a C.Diff stool antigen study that was positive 10/19 and repeat 10/[address] scan 10/19/17 revealed normal stool burden, no evidence of colitis, dilated distal small bowel loop and normal appearing TI. She has had a 25lb weight losss in last 4 months. History of uterine cancer an partial hysterertcomy. Recent colonospy they were unable to traverse a circumferential nodular leasion with a very small scope the area was biopsied. Current CT scan describes colitis involving the dista; descending colon down to the rectosigmoid junction. Ms. Falcon denies abdominal pain. there have been no fevers/chills reported. We were asked to assess. 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 [employer] History of Recent Travel: No Home Medications - Allergies Allergies/Adverse Reactions: Allergies Allergy/AdvReac Type Severity Reaction Status Date / Time aspirin Allergy Verified 03/07/18 13:47 Penicillins Allergy Verified 03/07/18 13:47 - Home Medications Home Medications: Ambulatory Orders Amantadine HCl [Amantadine] 100 mg PO DAILY 11/25/17 Carbidopa/Levodopa [Rytary ER 36.25 mg-145 mg Cap] 1 each PO BID 11/25/17 Clopidogrel Bisulfate [Plavix] 75 mg PO DAILY 11/25/17 Diltiazem Cd [Cardizem Cd -] 180 mg PO DAILY 11/25/17 Lactobacillus Acidophilus [Acidophilus] 1 each PO DAILY 11/25/17 Potassium Chloride [K-Dur -] 20 meq PO DAILY 11/25/17 Propranolol HCl 60 mg PO TID 11/25/17 Sodium,Potassium Phosphates [Phos-Nak Packet] 1 each PO TID 11/25/17 Amino Acids/Protein Hydrolys [Prosource No Carb Liquid Pkt] 30 ml PO BID@0800, 1730 packet 12/01/17 Methimazole [Tapazole -] 20 mg PO Q12H tablet 12/01/17 Digoxin [Lanoxin -] 0.125 mg PO DAILY 12/18/17 Gabapentin [Neurontin -] 100 mg PO Q12H 12/18/17 Ferrous Sulfate 325 mg PO DAILY 02/08/18 Potassium Chloride 10 meq PO DAILY 02/08/18 Family Disease History - Family Disease History Other Family History: Patient adopted Review of Systems - Review of Systems Constitutional: reports: Loss of Appetite, Unintentional Wgt. Loss. denies: Chills, Fever Eyes: denies: Blind Spots, Recent Change in Vision HENT: denies: Difficult Swallowing, Throat Pain Neck: denies: Pain on Movement, Tenderness Cardiovascular: denies: Chest Pain, Palpitations Respiratory: denies: Cough, SOB Gastrointestinal: reports: Abdominal Pain, Constipation. denies: Diarrhea Genitourinary: denies: Burning, Testicular Swelling Breasts: reports: No Symptoms Reported. denies: Skin Changes Musculoskeletal: denies: Back Pain, Muscle Pain Integumentary: denies: Blister, Change in Color, Pallor Neurological: denies: Seizure, Syncope Endocrine: denies: Unexplained Weight Gain, Unexplained Weight Loss Hematology/Lymphatic: denies: Easily Bruised, Excessive Bleeding Psychiatric: denies: Anxiety, Depression Physical Exam Vital Signs: Vital Signs Temperature 98.1 F 03/12/18 10:00 Pulse Rate 87 03/12/18 10:02 Respiratory Rate 20 03/12/18 10:00 Blood Pressure 134/76 03/12/18 10:00 O2 Sat by Pulse Oximetry (%) 95 03/11/18 21:00 Constitutional: Yes: No Distress, Calm, Cachectic, Thin. No: Well Nourished Eyes: Yes: Conjunctiva Clear, EOM Intact HENT: Yes: Atraumatic, Normocephalic Neck: Yes: Supple, Trachea Midline Cardiovascular: Yes: Regular Rate and Rhythm, S1, S2 Respiratory: Yes: Regular, CTA Bilaterally Gastrointestinal: Yes: Normal Bowel Sounds, Soft. No: Tenderness, Tenderness, Epigastrium, Tenderness, Rebound ...Rectal Exam: Yes: Deferred, Other (agreed to allow in return visit) Renal/: No: CVA Tenderness - Left, CVA Tenderness - Right Musculoskeletal: No: Joint Stiffness, Joint Swelling Extremities: No: Cool, Cyanosis Edema: No Peripheral Pulses WNL: Yes Integumentary: No: Jaundice, Skin Tear, Venous Stasis Changes Wound/Incision: Yes: Clean/Dry, Well Approximated Neurological: Yes: Alert, Oriented Psychiatric: Yes: Alert, Oriented Labs: CBC, BMP 03/12/18 06:40 03/12/18 06:40 Microbiology 03/08/18 18:25 Stool Clostridium difficile Antigen (MARICARMEN) - Final 03/08/18 18:25 Stool Clostridium difficile Toxin Assay - Final 03/07/18 10:26 Urine - Urine Clean Catch Urine Culture - Final Contaminated: Please Repeat Imaging - Results Cat Scan: Report Reviewed, Image Reviewed (pancolitis) Problem List - Problems (1) Rectal mass Assessment/Plan: 72 yo femlae with MMP history of uterine ca s/p partial hysterectomy CEA elevated, likely malignancy (recurrent vs. new primary). Anatomy in this area is complex. Thus I will defer to a colorectal surgeon if surgery is required. Please transfer her as needed. f/u biopsy consider transfer to Colorectal surgery Thank you for the opportunity to participate in the care of this patient. Code(s): K62.9 - DISEASE OF ANUS AND RECTUM, UNSPECIFIED (2) Uterine cancer Code(s): C55 - MALIGNANT NEOPLASM OF UTERUS, PART UNSPECIFIED Qualifiers: Malignant neoplasm of uterus location: body of uterus Malignant neoplasm of body of uterus location: overlapping locations Qualified Code(s): C54.8 - Malignant neoplasm of overlapping sites of corpus uteri (3) Colitis Code(s): K52.9 - NONINFECTIVE GASTROENTERITIS AND COLITIS, UNSPECIFIED (4) Colonic obstruction Code(s): K56.609 - UNSP INTESTNL OBST, UNSP TO PARTIAL VERSUS COMPLETE OBST (5) Rectal bleeding Code(s): K62.5 - HEMORRHAGE OF ANUS AND RECTUM
[2018-03-13] MEDS: GABAPENTIN 100 MG CAPSULE (FP) PO SCH ×2 (02:32→13:57)
[2018-03-13 04:17] LABS: CARCINOEMBRYONIC ANTIGEN 19.9 ng/mL (0.0-4.7)
[2018-03-13] MEDS ORDERED: PT OWN MED DRAWER 7, Y5N ONE ×2 (05:40→21:33)
[2018-03-13] MEDS: NAPH,MB-DB/K PH,MBDB POWDER PACKET PO SCH ×3 (06:05→22:02)
[2018-03-13] MEDS: AMINO ACIDS/PROTEIN HYDROLYS 30 ML LIQUID.PKT PO SCH ×2 (08:03→16:55)
[2018-03-13 08:25] LABS: BASO % 0.4 % (0-2.0); EOS % 0.2 % (0-4.5); HEMATOCRIT 29.2 % (32.4-45.2); HEMOGLOBIN 9.1 GM/dL (10.7-15.3); LYMPH % 20.5 % (8-40); MCH 30.5 pg (25.7-33.7); MCHC 31.2 g/dl (32.0-36.0); MEAN CELL VOLUME 97.8 fl (80-96); MEAN PLT VOLUME 6.6 fl (7.5-11.1); MONO % 8.2 % (3.8-10.2); NEUT % 70.7 % (42.8-82.8); PLATELET COUNT 324 K/MM3 (134-434); RBC 2.99 M/mm3 (3.60-5.2); RDW 13.6 % (11.6-15.6); WHITE BLOOD COUNT 13.2 K/mm3 (4.0-10.0)
[2018-03-13 08:50] LABS: ANION GAP 6 MMOL/L (8-16); BLOOD UREA NITROGEN 12 mg/dL (7-18); CALCIUM 8.4 mg/dL (8.5-10.1); CHLORIDE 103 mmol/L (98-107); CO2 26 mmol/L (21-32); CREATININE 0.7 mg/dL (0.55-1.3); GLUCOSE,RANDOM 77 mg/dL (74-106); SODIUM 135 mmol/L (136-145)
[2018-03-13] MEDS: POTASSIUM CHLORIDE TABS 20 MEQ TABLET.ER (FP) PO SCH (09:23)
[2018-03-13] MEDS: DIGOXIN 0.125 MG TABLET (FP) PO SCH (09:23)
[2018-03-13] MEDS: LACTOBACILLUS ACIDOPHILUS 1 TABLET PO SCH (09:24)
[2018-03-13] MEDS: FERROUS SO4 325 MG TABLET (FP) PO SCH (09:24)
[2018-03-13] MEDS: AMANTADINE HCL 100 MG TABLET PO SCH (09:25)
[2018-03-13] MEDS: METHIMAZOLE 10 MG TABLET (FP) PO SCH ×2 (09:27→22:02)
--- NOTE | 2018-03-13 11:40 | PN ---
Progress Note, Physician Chief Complaint: Pt sitting in bed in no acute distress. Reports feeling well. No diarrhea. tolerating diet. Denies any chest pain, sob, n/v - Current Medication List Current Medications: Active Medications Acetaminophen (Tylenol -) 650 mg PO Q4H PRN PRN Reason: PAIN Amantadine HCl (Symmetrel -) 100 mg PO DAILY [facility] Last Admin: 03/13/18 09:25 Dose: 100 mg Amino Acids (Prosource No Carb Liquid Pkt) 30 ml PO BID@0800,1730 [facility] Last Admin: 03/13/18 08:03 Dose: 30 ml Digoxin (Lanoxin -) 0.125 mg PO DAILY [facility] Last Admin: 03/13/18 09:23 Dose: 0.125 mg Diltiazem HCl (Cardizem Cd -) 180 mg PO DAILY [facility] Last Admin: 03/13/18 09:24 Dose: 180 mg Ferrous Sulfate (Feosol -) 325 mg PO DAILY [facility] Last Admin: 03/13/18 09:24 Dose: 325 mg Gabapentin (Neurontin -) 100 mg PO Q12H [facility] Last Admin: 03/13/18 02:32 Dose: 100 mg Lactobacillus Acidophilus (Bacid -) 1 tab PO DAILY [facility] Last Admin: 03/13/18 09:24 Dose: 1 tab Methimazole (Tapazole -) 20 mg PO BID [facility] Last Admin: 03/13/18 09:27 Dose: 20 mg Potassium Chloride (K-Dur -) 20 meq PO DAILY [facility] Last Admin: 03/13/18 09:23 Dose: 20 meq Potassium Phos/Sodium Phos (Phos-Nak Packet -) 1 packet PO TID [facility] Last Admin: 03/13/18 06:05 Dose: 1 packet Propranolol HCl (Inderal -) 60 mg PO TID [facility] Last Admin: 03/13/18 06:05 Dose: 60 mg - Objective Vital Signs: Vital Signs Temperature 98.0 F 03/13/18 08:54 Pulse Rate 86 03/13/18 09:23 Respiratory Rate 20 03/13/18 08:54 Blood Pressure 108/58 L 03/13/18 08:54 O2 Sat by Pulse Oximetry (%) 96 03/13/18 10:00 Constitutional: Yes: No Distress, Calm, Thin Cardiovascular: Yes: Pulse Irregular Respiratory: Yes: WNL, Regular, CTA Bilaterally. No: Accessory Muscle Use, SOB , Tachypnea, Wheezes Gastrointestinal: Yes: WNL, Normal Bowel Sounds, Soft. No: Distention, Tenderness, Vomiting Genitourinary: Yes: WNL Extremities: Yes: WNL Edema: No Neurological: Yes: Alert, Oriented, Confusion (intermittent) Psychiatric: Yes: Alert Labs: CBC, BMP 03/13/18 07:30 03/13/18 07:30 Assessment/Plan (2) S/P colonoscopy Assessment/Plan: s/p colonoscopy, biopsy- unable to advance scope due to nodular thickening, suspicious for malignancy, biopsy pending hold plavix tumor markers sent surgery consult noted- recommend colorectal surgeon recent CTA chest 01/2018 without acute changes recommend oncology evaluation and further work up pending biopsy results GI following Code(s): Z98.890 - OTHER SPECIFIED POSTPROCEDURAL STATES (2) Colonic obstruction Assessment/Plan: r/o malignancy Code(s): K56.609 - UNSP INTESTNL OBST, UNSP TO PARTIAL VERSUS COMPLETE OBST (3) Colitis Assessment/Plan: recurrent colitis on abd ct cdiff negative defer further management to GI Code(s): K52.9 - NONINFECTIVE GASTROENTERITIS AND COLITIS, UNSPECIFIED (4) Rectal bleeding Assessment/Plan: resolved Code(s): K62.5 - HEMORRHAGE OF ANUS AND RECTUM (5) Atrial fibrillation Assessment/Plan: rate controlled continue home meds AC contraindicated 2/2 risk for falls Code(s): I48.91 - UNSPECIFIED ATRIAL FIBRILLATION (6) Chronic diarrhea Assessment/Plan: improved Code(s): K52.9 - NONINFECTIVE GASTROENTERITIS AND COLITIS, UNSPECIFIED (7) Occult blood in stools Assessment/Plan: hg/hct stable Code(s): R19.5 - OTHER FECAL ABNORMALITIES (8) Parkinson disease Assessment/Plan: chronic dystonia, bradykinisia with intermittent confusion home med: rytary 36.25/145 2 caps bid outpt neurology f/u Code(s): G20 - PARKINSON'S DISEASE (9) Peripheral vascular disease Assessment/Plan: s/p angiogram, stent lle , 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 hold plavix x 7 days Code(s): I73.9 - PERIPHERAL VASCULAR DISEASE, UNSPECIFIED (10) Severe malnutrition Assessment/Plan: ensure encourage po intake ensure supplements Code(s): E43 - UNSPECIFIED SEVERE PROTEIN-CALORIE MALNUTRITION (11) Dystonia Assessment/Plan: secondary to PD chronic Code(s): G24.9 - DYSTONIA, UNSPECIFIED (12) Hypophonia Assessment/Plan: secondary to PD chronic Code(s): R49.8 - OTHER VOICE AND RESONANCE DISORDERS (13) Hyperthyroidism Assessment/Plan: stable continue tapazole 20 bid outpt endocrine f/u Code(s): E05.90 - THYROTOXICOSIS, UNSP WITHOUT THYROTOXIC CRISIS OR STORM (14) HTN (hypertension) Assessment/Plan: controlled meds per parameters Code(s): I10 - ESSENTIAL (PRIMARY) HYPERTENSION Qualifiers: Hypertension type: essential hypertension Qualified Code(s): I10 - Essential (primary) hypertension (15) AAA (abdominal aortic aneurysm) Assessment/Plan: 4.8cm, chronic recommend close f/u with cardiology outpt Code(s): I71.4 - ABDOMINAL AORTIC ANEURYSM, WITHOUT RUPTURE Qualifiers: Presence of rupture: without rupture Qualified Code(s): I71.4 - Abdominal aortic aneurysm, without rupture (16) Hypomagnesemia Assessment/Plan: improved Code(s): E83.42 - HYPOMAGNESEMIA Dispo: awaiting plan from surgery, gi. awaiting biopsy results.
--- NOTE | 2018-03-13 19:17 | PN ---
GI Progress Note Subjective: Diarrhea x 2 today Denies abdominal pain No rectal bleeding CEA elevated 19.9 - Objective Vital Signs: Vital Signs Temperature 97.4 F L 03/13/18 15:00 Pulse Rate 66 03/13/18 15:00 Respiratory Rate 20 03/13/18 15:00 Blood Pressure 112/47 L 03/13/18 15:00 O2 Sat by Pulse Oximetry (%) 96 03/13/18 10:00 Constitutional: Calm Eyes: No: Sclera Icterus Cardiovascular: Yes: Pulse Irregular (regular rate) Respiratory: Yes: CTA Bilaterally ...Auscultate: Yes: Normoactive Bowel Sounds ...Palpate: No: Tenderness Edema: No (No LE edema) Labs: CBC, BMP 03/13/18 07:30 03/13/18 07:30 Problem List - Problems (1) Rectal bleeding Assessment/Plan: Reviewed colonoscopy findings: ? IBD, ? inflammatory stricture. ? underlying malignancy. pathology still not available as of yet. CEA elevated however unclear significance in setting of active inflammatory process of the colon Can consider Asacol HD 800mg PO TID when aspirin allergy has been clarified. This was discussed with CARMITA Steinberg Surgery evaluated: advised transfer to facility with colorectal surgeon. Dr. Call to discuss with Dr. Pelaez Continue supportive measures Code(s): K62.5 - HEMORRHAGE OF ANUS AND RECTUM
--- NOTE | 2018-03-13 19:55 | PATH ---
Surgical Pathology Report Patient Name: YVON PEREZ Med. Rec. #: [id number] /Age/Gender: 1945 (Age: 72) / F Account: [id number] Location: [address] [place] [address]/[facility] Taken: 03/11/2018 Received: 03/11/2018 Reported: 03/13/2018 Physicians: MD Dinesh Stone M.D. Specimen(s) Received A: BX 20 CM COLON B: BX RECTUM Clinical History Diarrhea, anemia, rectal bleeding Postoperative diagnosis: Circumferential mass Final Diagnosis A. COLON, 30 CM, BIOPSY: COLONIC MUCOSA WITH MARKED CHRONIC ACTIVE COLITIS, ULCERATION, AND REACTIVE CHANGES. NO GRANULOMA OR DYSPLASIA IDENTIFIED. B. RECTUM, BIOPSY: COLONIC MUCOSA WITH MARKED CHRONIC ACTIVE COLITIS, ULCERATION, AND REACTIVE CHANGES. NO GRANULOMA OR DYSPLASIA IDENTIFIED. Comment: Deeper levels have been examined. Prior material is noted. Suggest clinical and endoscopic correlation. Electronically Signed Thalia Harrell M.D. Gross Description A. Received in formalin labeled "20 cm colon biopsy," is a 0.8 x 0.6 x 0.2 cm aggregate of sterling soft tissue fragments. The formalin is filtered and the specimen is entirely submitted in one cassette. B. Received in formalin, labeled "rectum biopsy" are 4 sterling, irregular portions of soft tissue ranging from 0.2-0.4 cm. in greatest dimension. The specimens are submitted in toto in one cassette. /03/11/2018 saudi/03/11/2018
[2018-03-14] MEDS: GABAPENTIN 100 MG CAPSULE (FP) PO SCH ×2 (02:47→14:11)
[2018-03-14] MEDS: NAPH,MB-DB/K PH,MBDB POWDER PACKET PO SCH ×3 (06:49→21:57)
[2018-03-14] MEDS: AMINO ACIDS/PROTEIN HYDROLYS 30 ML LIQUID.PKT PO SCH ×2 (08:27→17:14)
[2018-03-14] MEDS: DIGOXIN 0.125 MG TABLET (FP) PO SCH (09:44)
[2018-03-14] MEDS: FERROUS SO4 325 MG TABLET (FP) PO SCH (09:44)
[2018-03-14] MEDS: POTASSIUM CHLORIDE TABS 20 MEQ TABLET.ER (FP) PO SCH (09:44)
[2018-03-14] MEDS: LACTOBACILLUS ACIDOPHILUS 1 TABLET PO SCH (09:44)
[2018-03-14] MEDS: AMANTADINE HCL 100 MG TABLET PO SCH (09:45)
[2018-03-14] MEDS: METHIMAZOLE 10 MG TABLET (FP) PO SCH ×2 (09:45→21:58)
--- NOTE | 2018-03-14 14:06 | PN ---
Physical Exam: SUBJECTIVE: Patient seen and examined. She says she feels "never better." She denies pain, diarrhea. She is tolerating diet. OBJECTIVE: Vital Signs Period Temp Pulse Resp BP Sys/Watkins Pulse Ox Last 24 Hr 97.4 F-98.9 F 66-88 18-20 101-115/47-63 94 GENERAL: The patient is awake, alert, in no acute distress. LUNGS: Breath sounds equal, clear to auscultation bilaterally, no wheezes, no crackles, no accessory muscle use. HEART: Irregularly irregular. ABDOMEN: Soft, nontender, nondistended, normoactive bowel sounds, no guarding, no rebound, no hepatosplenomegaly, no masses. EXTREMITIES: 2+ pulses, warm, well-perfused, no edema. Laboratory Results - last 24 hr 03/13/18 07:30 CA 125 Antigen 28.2 Active Medications Generic Name Dose Route Start Last Admin Trade Name Freq PRN Reason Stop Dose Admin Acetaminophen 650 mg 03/07/18 14:44 Tylenol - PO Q4H PRN PAIN Amantadine HCl 100 mg 03/08/18 10:00 03/14/18 09:45 Symmetrel - PO 100 mg DAILY [facility] Administration Amino Acids 30 ml 03/07/18 17:30 03/14/18 08:27 Prosource No Carb Liquid Pkt PO 30 ml BID@0800,1730 [facility] Administration Digoxin 0.125 mg 03/08/18 10:00 03/14/18 09:44 Lanoxin - PO 0.125 mg DAILY [facility] Administration Diltiazem HCl 180 mg 03/08/18 10:00 03/14/18 09:44 Cardizem Cd - PO 180 mg DAILY [facility] Administration Ferrous Sulfate 325 mg 03/08/18 10:00 03/14/18 09:44 Feosol - PO 325 mg DAILY [facility] Administration Gabapentin 100 mg 03/07/18 14:45 03/14/18 02:47 Neurontin - PO 100 mg Q12H [facility] Administration Lactobacillus Acidophilus 1 tab 03/08/18 10:00 03/14/18 09:44 Bacid - PO 1 tab DAILY [facility] Administration Methimazole 20 mg 03/11/18 10:00 03/14/18 09:45 Tapazole - PO 20 mg BID [facility] Administration Potassium Chloride 20 meq 03/08/18 10:00 03/14/18 09:44 K-Dur - PO 20 meq DAILY [facility] Administration Potassium Phos/Sodium Phos 1 packet 03/07/18 22:00 03/14/18 06:49 Phos-Nak Packet - PO 1 packet TID [facility] Administration Propranolol HCl 60 mg 03/10/18 06:00 03/14/18 06:49 Inderal - PO 60 mg TID [facility]ANY Administration ASSESSMENT/PLAN: 1. Rectal bleeding, history of colitis - Colonoscopy 03/11 revealed circumferential, nodular thickening with friability in the rectum and rectosigmoid with narrowing through which pediatric colonoscope could not be advanced - Possible malignancy, inflammatory stricture, IBD - Biopsies done - path pending - CEA elevated 19.9 - CA 19-9, CA 125, B-HCG normal - Will need evaluation by colorectal surgeon - Consider Asacol - but unclear what her aspirin allergy is 2. Atrial fibrillation - Rate controlled - Continue Cardizem CD, Inderal, Digoxin 3. Parkinson disease with dystonia, hypophonia - Continue Amantadine 4. 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 Severe malnutrition 6. Hyperthyroidism - Continue Tapazole, Inderal 7. HTN - Continue Cardizem CD, Inderal 8. AAA 9. Hypomagnesemia 10. Anemia, macrocytic - B12, folate, TSH normal last month - Hemoglobin is stable - Continue ferrous sulfate - Check iron studies (iron was low normal last month) 11. Hypophosphatemia - Improved 12. Hypokalemia - Improved Visit type - Emergency Visit Emergency Visit: Yes ED Registration Date: 03/07/18 Care time: The patient presented to the Emergency Department on the above date and was hospitalized for further evaluation of their emergent condition. - New Patient This patient is new to me today: Yes Date on this admission: 03/14/18 - Critical Care Critical Care patient: No - Discharge Referral Referred to [facility] Med P.C.: No
--- NOTE | 2018-03-14 17:31 | PN ---
GI Progress Note Subjective: GI NOte: Eating dinner. Denies pain. Biopsies reveal colitis but no obvious malignancy. - Objective Vital Signs: Vital Signs Temperature 98.3 F 03/14/18 15:21 Pulse Rate 95 H 03/14/18 15:21 Respiratory Rate 18 03/14/18 15:21 Blood Pressure 112/62 03/14/18 15:21 O2 Sat by Pulse Oximetry (%) 94 L 03/14/18 08:58 Laboratory Tests 03/11/18 03/12/18 03/12/18 06:30 06:40 12:25 Hgb 9.6 L 10.0 L Carcinoembryonic Ag 19.9 H 03/13/18 07:30 Hgb 9.1 L Carcinoembryonic Ag Constitutional: No Distress ...Auscultate: Yes: Normoactive Bowel Sounds ...Palpate: Yes: Soft, Other (nontender) Labs: CBC, BMP 03/13/18 07:30 03/13/18 07:30 Problem List - Problems (1) Colitis Assessment/Plan: Suspect ischemic colitis with stricturing. Bleeding appears to be subsiding. Code(s): K52.9 - NONINFECTIVE GASTROENTERITIS AND COLITIS, UNSPECIFIED (2) Colonic obstruction Code(s): K56.609 - UNSP INTESTNL OBST, UNSP TO PARTIAL VERSUS COMPLETE OBST (3) Rectal bleeding Code(s): K62.5 - HEMORRHAGE OF ANUS AND RECTUM (4) Diarrhea Code(s): R19.7 - DIARRHEA, UNSPECIFIED Qualifiers: Diarrhea type: unspecified type Qualified Code(s): R19.7 - Diarrhea, unspecified
[2018-03-14] MEDS ORDERED: PT OWN MED DRAWER 7, Y5N ONE (21:53)
[2018-03-15] MEDS: GABAPENTIN 100 MG CAPSULE (FP) PO SCH ×2 (02:02→14:34)
[2018-03-15] MEDS: NAPH,MB-DB/K PH,MBDB POWDER PACKET PO SCH ×3 (05:38→22:07)
[2018-03-15] MEDS: AMINO ACIDS/PROTEIN HYDROLYS 30 ML LIQUID.PKT PO SCH ×2 (08:08→17:29)
[2018-03-15 08:35] LABS: HEMATOCRIT 28.8 % (32.4-45.2); MCH 30.3 pg (25.7-33.7); MCHC 31.2 g/dl (32.0-36.0); MEAN CELL VOLUME 97.1 fl (80-96); MEAN PLT VOLUME 6.7 fl (7.5-11.1); PLATELET COUNT 352 K/MM3 (134-434); RBC 2.97 M/mm3 (3.60-5.2); RDW 13.4 % (11.6-15.6); WHITE BLOOD COUNT 11.4 K/mm3 (4.0-10.0)
[2018-03-15 09:28] LABS: ANION GAP 7 MMOL/L (8-16); BLOOD UREA NITROGEN 11 mg/dL (7-18); CALCIUM 8.2 mg/dL (8.5-10.1); CHLORIDE 104 mmol/L (98-107); CO2 25 mmol/L (21-32); CREATININE 0.8 mg/dL (0.55-1.3); GLUCOSE,RANDOM 71 mg/dL (74-106); MAGNESIUM 1.6 mg/dL (1.8-2.4); PHOSPHOROUS 3.6 mg/dL (2.5-4.9); POTASSIUM 4.2 mmol/L (3.5-5.1); SODIUM 135 mmol/L (136-145)
[2018-03-15] MEDS ORDERED: PT OWN MED DRAWER 7, Y5N ONE ×3 (10:50→22:05)
[2018-03-15] MEDS: DIGOXIN 0.125 MG TABLET (FP) PO SCH (10:51)
[2018-03-15] MEDS: METHIMAZOLE 10 MG TABLET (FP) PO SCH ×2 (10:51→22:07)
[2018-03-15] MEDS: FERROUS SO4 325 MG TABLET (FP) PO SCH (10:51)
[2018-03-15] MEDS: LACTOBACILLUS ACIDOPHILUS 1 TABLET PO SCH (10:51)
[2018-03-15] MEDS: POTASSIUM CHLORIDE TABS 20 MEQ TABLET.ER (FP) PO SCH (10:51)
[2018-03-15] MEDS: AMANTADINE HCL 100 MG TABLET PO SCH (10:52)
[2018-03-15 10:56] LABS: LDH 162 U/L (84-246)
--- NOTE | 2018-03-15 12:12 | PN ---
Physical Exam: SUBJECTIVE: Patient seen and examined. She has no complaints. She says she had an "almost normal" bowel movement yesterday. OBJECTIVE: Vital Signs Period Temp Pulse Resp BP Sys/Watkins Pulse Ox Last 24 Hr 98.0 F-98.3 F 80-96 18-20 110-120/60-64 GENERAL: The patient is awake, alert, and fully oriented, in no acute distress. LUNGS: Breath sounds equal, clear to auscultation bilaterally, no wheezes, no crackles, no accessory muscle use. HEART: Irregularly irregular. ABDOMEN: Soft, nontender, nondistended, normoactive bowel sounds, no guarding, no rebound, no hepatosplenomegaly, no masses. EXTREMITIES: 2+ pulses, warm, well-perfused, no edema. Laboratory Results - last 24 hr 03/14/18 03/15/18 03/15/18 09:31 07:30 07:30 WBC 11.4 H RBC 2.97 L Hgb 9.0 L Hct 28.8 L MCV 97.1 H MCH 30.3 MCHC 31.2 L RDW 13.4 Plt Count 352 MPV 6.7 L Sodium 135 L Potassium 4.2 Chloride 104 Carbon Dioxide 25 Anion Gap 7 L BUN 11 Creatinine 0.8 Creat Clearance w eGFR > 60 Random Glucose 71 L Calcium 8.2 L Phosphorus 3.6 Magnesium 1.6 L Ferritin 38.6 LD Total 162 Carcinoembryonic Ag 18.7 H Active Medications Generic Name Dose Route Start Last Admin Trade Name Freq PRN Reason Stop Dose Admin Acetaminophen 650 mg 03/07/18 14:44 Tylenol - PO Q4H PRN PAIN Amantadine HCl 100 mg 03/08/18 10:00 03/15/18 10:52 Symmetrel - PO 100 mg DAILY [facility] Administration Amino Acids 30 ml 03/07/18 17:30 03/15/18 08:08 Prosource No Carb Liquid Pkt PO 30 ml BID@0800,1730 [facility] Administration Digoxin 0.125 mg 03/08/18 10:00 03/15/18 10:51 Lanoxin - PO 0.125 mg DAILY [facility] Administration Diltiazem HCl 180 mg 03/08/18 10:00 03/15/18 10:51 Cardizem Cd - PO 180 mg DAILY [facility] Administration Ferrous Sulfate 325 mg 03/08/18 10:00 03/15/18 10:51 Feosol - PO 325 mg DAILY [facility] Administration Gabapentin 100 mg 03/07/18 14:45 03/15/18 02:02 Neurontin - PO 100 mg Q12H [facility]ANY Administration Lactobacillus Acidophilus 1 tab 03/08/18 10:00 03/15/18 10:51 Bacid - PO 1 tab DAILY [facility] Administration Methimazole 20 mg 03/11/18 10:00 03/15/18 10:51 Tapazole - PO 20 mg BID [facility]ANY Administration Potassium Chloride 20 meq 03/08/18 10:00 03/15/18 10:51 K-Dur - PO 20 meq DAILY [facility] Administration Potassium Phos/Sodium Phos 1 packet 03/07/18 22:00 03/15/18 05:38 Phos-Nak Packet - PO 1 packet TID [facility]ANY Administration Propranolol HCl 60 mg 03/10/18 06:00 03/15/18 05:38 Inderal - PO 60 mg TID M[facility]ANY Administration ASSESSMENT/PLAN: 1. Rectal bleeding, history of colitis - Bleeding and diarrhea are improving - Colonoscopy 03/11 revealed circumferential, nodular thickening with friability in the rectum and rectosigmoid with narrowing through which pediatric colonoscope could not be advanced - Biopsies show chronic active colitis with ulceration - CEA elevated 19.9 - CA 19-9, CA 125, B-HCG normal - Consider Asacol - but unclear what her aspirin allergy is 2. Atrial fibrillation - Rate controlled - Continue Cardizem CD, Inderal, Digoxin 3. Parkinson disease with dystonia, hypophonia - Continue Amantadine 4. 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 Severe malnutrition 6. Hyperthyroidism - Continue Tapazole, Inderal 7. HTN - Continue Cardizem CD, Inderal 8. AAA 9. Hypomagnesemia - Supplement magnesium 10. Anemia, macrocytic - B12, folate, TSH normal last month - Hemoglobin is stable - Continue ferrous sulfate - Ferritin is low normal - Iron, TIBC pending 11. Hypophosphatemia - Improved 12. Hypokalemia - Improved Visit type - Emergency Visit Emergency Visit: Yes ED Registration Date: 03/07/18 Care time: The patient presented to the Emergency Department on the above date and was hospitalized for further evaluation of their emergent condition. - New Patient This patient is new to me today: No - Critical Care Critical Care patient: No - Discharge Referral Referred to [facility] Med P.C.: No
[2018-03-15] MEDS ORDERED: MAGNESIUM SULF 50% (8.12 MEQ/2 ML-1 GM VIAL) IVPB ONE (12:45)
[2018-03-16] MEDS: GABAPENTIN 100 MG CAPSULE (FP) PO SCH ×2 (02:25→15:42)
[2018-03-16 04:11] LABS: SERUM IRON SATURATION 8 % (15-55); TOTAL IRON BINDING CAPACITY 203 ug/dL (250-450); UIBC 186 ug/dL (118-369)
[2018-03-16] MEDS ORDERED: PT OWN MED DRAWER 7, Y5N ONE ×4 (05:43→21:45)
[2018-03-16] MEDS: NAPH,MB-DB/K PH,MBDB POWDER PACKET PO SCH ×3 (05:54→22:52)
[2018-03-16 08:05] LABS: HEMATOCRIT 28.7 % (32.4-45.2); MCH 30.2 pg (25.7-33.7); MCHC 31.4 g/dl (32.0-36.0); MEAN CELL VOLUME 96.2 fl (80-96); PLATELET COUNT 345 K/MM3 (134-434); RBC 2.98 M/mm3 (3.60-5.2); RDW 13.4 % (11.6-15.6); WHITE BLOOD COUNT 12.6 K/mm3 (4.0-10.0)
[2018-03-16 08:20] LABS: ANION GAP 6 MMOL/L (8-16); BLOOD UREA NITROGEN 14 mg/dL (7-18); CALCIUM 8.1 mg/dL (8.5-10.1); CHLORIDE 104 mmol/L (98-107); CO2 24 mmol/L (21-32); CREATININE 0.8 mg/dL (0.55-1.3); GLUCOSE,RANDOM 80 mg/dL (74-106); MAGNESIUM 2.1 mg/dL (1.8-2.4); POTASSIUM 4.2 mmol/L (3.5-5.1); SODIUM 134 mmol/L (136-145)
[2018-03-16] MEDS: AMINO ACIDS/PROTEIN HYDROLYS 30 ML LIQUID.PKT PO SCH ×2 (08:42→17:35)
[2018-03-16] MEDS: FERROUS SO4 325 MG TABLET (FP) PO SCH (09:42)
[2018-03-16] MEDS: LACTOBACILLUS ACIDOPHILUS 1 TABLET PO SCH (09:42)
[2018-03-16] MEDS: POTASSIUM CHLORIDE TABS 20 MEQ TABLET.ER (FP) PO SCH (09:43)
[2018-03-16] MEDS: DIGOXIN 0.125 MG TABLET (FP) PO SCH (09:43)
[2018-03-16] MEDS: METHIMAZOLE 10 MG TABLET (FP) PO SCH ×2 (10:29→22:52)
[2018-03-16] MEDS: AMANTADINE HCL 100 MG TABLET PO SCH (10:30)
--- NOTE | 2018-03-16 10:49 | PN ---
Progress Note (short form) - Note Progress Note: Patient seen and examined Labs reviewed Denies abdominal pain. Reports one normal stool yesterday, none today Exam unremarkable When patient asked about allergy to ASA, she reports she gets sweating of palms briefly I discussed with her as well, he thinks ASA allergy was from childhood, and states she takes Advil and Aleve without issue Biopsies from colonoscopy with chronic active colitis Differential - ischemic, inflammatory, infectious (Resolved) Clinically patient is doing well Would check ESR, CRP, fecal calprotectin if possible Given chronicity and that colitis is active, would favor treating, if possible. Given the above information, would be reasonable to give a trial of mesalamine PO and HI with close monitoring Would discuss with allergy if possible
--- NOTE | 2018-03-16 12:16 | PN ---
Progress Note, Physician Chief Complaint: Pt sitting in bed in no acute distress. Reports feeling well. No diarrhea. tolerating diet. Denies any chest pain, sob, n/v - Current Medication List Current Medications: Active Medications Acetaminophen (Tylenol -) 650 mg PO Q4H PRN PRN Reason: PAIN Amantadine HCl (Symmetrel -) 100 mg PO DAILY [facility] Last Admin: 03/16/18 10:30 Dose: 100 mg Amino Acids (Prosource No Carb Liquid Pkt) 30 ml PO BID@0800,1730 [facility] Last Admin: 03/16/18 08:42 Dose: 30 ml Digoxin (Lanoxin -) 0.125 mg PO DAILY [facility] Last Admin: 03/16/18 09:43 Dose: 0.125 mg Diltiazem HCl (Cardizem Cd -) 180 mg PO DAILY [facility] Last Admin: 03/16/18 09:43 Dose: 180 mg Ferrous Sulfate (Feosol -) 325 mg PO DAILY [facility] Last Admin: 03/16/18 09:42 Dose: 325 mg Gabapentin (Neurontin -) 100 mg PO Q12H [facility] Last Admin: 03/16/18 02:25 Dose: 100 mg Lactobacillus Acidophilus (Bacid -) 1 tab PO DAILY [facility] Last Admin: 03/16/18 09:42 Dose: 1 tab Methimazole (Tapazole -) 20 mg PO BID [facility] Last Admin: 03/16/18 10:29 Dose: 20 mg Potassium Chloride (K-Dur -) 20 meq PO DAILY [facility] Last Admin: 03/16/18 09:43 Dose: 20 meq Potassium Phos/Sodium Phos (Phos-Nak Packet -) 1 packet PO TID [facility] Last Admin: 03/16/18 05:54 Dose: 1 packet Propranolol HCl (Inderal -) 60 mg PO TID [facility] Last Admin: 03/16/18 05:53 Dose: 60 mg - Objective Vital Signs: Vital Signs Temperature 97.8 F 03/16/18 06:00 Pulse Rate 73 03/16/18 09:43 Respiratory Rate 18 03/16/18 06:00 Blood Pressure 105/58 L 03/16/18 06:00 O2 Sat by Pulse Oximetry (%) 94 L 03/14/18 08:58 Constitutional: Yes: No Distress, Calm, Thin Cardiovascular: Yes: Pulse Irregular. No: Murmur Respiratory: Yes: Regular, CTA Bilaterally. No: Accessory Muscle Use, Rhonchi, SOB, Tachypnea, Wheezes Gastrointestinal: Yes: WNL, Normal Bowel Sounds, Soft. No: Distention, Melena, Tenderness, Vomiting Genitourinary: Yes: WNL Extremities: Yes: WNL Edema: No Neurological: Yes: Alert, Confusion (intermittent) Psychiatric: Yes: Alert Labs: CBC, BMP 03/16/18 07:00 03/16/18 07:00 Assessment/Plan (2) S/P colonoscopy Assessment/Plan: s/p colonoscopy, biopsy neg for malignancy biopsy- chronic active colitis, management per GI discussed w/ GI , plan for gastrografin surgery consult noted- recommend colorectal surgeon GI following Code(s): Z98.890 - OTHER SPECIFIED POSTPROCEDURAL STATES (2) Colonic obstruction Assessment/Plan: as above Code(s): K56.609 - UNSP INTESTNL OBST, UNSP TO PARTIAL VERSUS COMPLETE OBST (3) Colitis Assessment/Plan: recurrent colitis on abd ct cdiff negative defer further management to GI Code(s): K52.9 - NONINFECTIVE GASTROENTERITIS AND COLITIS, UNSPECIFIED (4) Rectal bleeding Assessment/Plan: resolved Code(s): K62.5 - HEMORRHAGE OF ANUS AND RECTUM (5) Atrial fibrillation Assessment/Plan: rate controlled continue home meds AC contraindicated 2/2 risk for falls Code(s): I48.91 - UNSPECIFIED ATRIAL FIBRILLATION (6) Chronic diarrhea Assessment/Plan: improved Code(s): K52.9 - NONINFECTIVE GASTROENTERITIS AND COLITIS, UNSPECIFIED (7) Occult blood in stools Assessment/Plan: hg/hct stable Code(s): R19.5 - OTHER FECAL ABNORMALITIES (8) Parkinson disease Assessment/Plan: chronic dystonia, bradykinisia with intermittent confusion home med: rytary 36.25/145 2 caps bid outpt neurology f/u Code(s): G20 - PARKINSON'S DISEASE (9) Peripheral vascular disease Assessment/Plan: s/p angiogram, stent lle , 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 hold plavix x 7 days Code(s): I73.9 - PERIPHERAL VASCULAR DISEASE, UNSPECIFIED (10) Severe malnutrition Assessment/Plan: ensure encourage po intake ensure supplements Code(s): E43 - UNSPECIFIED SEVERE PROTEIN-CALORIE MALNUTRITION (11) Dystonia Assessment/Plan: secondary to PD chronic Code(s): G24.9 - DYSTONIA, UNSPECIFIED (12) Hypophonia Assessment/Plan: secondary to PD chronic Code(s): R49.8 - OTHER VOICE AND RESONANCE DISORDERS (13) Hyperthyroidism Assessment/Plan: stable continue tapazole 20 bid outpt endocrine f/u Code(s): E05.90 - THYROTOXICOSIS, UNSP WITHOUT THYROTOXIC CRISIS OR STORM (14) HTN (hypertension) Assessment/Plan: controlled meds per parameters Code(s): I10 - ESSENTIAL (PRIMARY) HYPERTENSION Qualifiers: Hypertension type: essential hypertension Qualified Code(s): I10 - Essential (primary) hypertension (15) AAA (abdominal aortic aneurysm) Assessment/Plan: 4.8cm, chronic recommend close f/u with cardiology outpt Code(s): I71.4 - ABDOMINAL AORTIC ANEURYSM, WITHOUT RUPTURE Qualifiers: Presence of rupture: without rupture Qualified Code(s): I71.4 - Abdominal aortic aneurysm, without rupture (16) Hypomagnesemia Assessment/Plan: improved Code(s): E83.42 - HYPOMAGNESEMIA
[2018-03-16] MEDS: HYDROCORTISONE 100 MG/60 ML RECTAL ENEMA RC SCH (22:58)
[2018-03-17] MEDS: GABAPENTIN 100 MG CAPSULE (FP) PO SCH ×3 (03:13→15:51)
[2018-03-17] MEDS: NAPH,MB-DB/K PH,MBDB POWDER PACKET PO SCH ×4 (06:23→21:49)
[2018-03-17 07:55] LABS: BASO % 0.3 % (0-2.0); EOS % 0.2 % (0-4.5); HEMATOCRIT 29.5 % (32.4-45.2); HEMOGLOBIN 9.4 GM/dL (10.7-15.3); LYMPH % 21.4 % (8-40); MCH 30.4 pg (25.7-33.7); MCHC 31.7 g/dl (32.0-36.0); MEAN CELL VOLUME 95.8 fl (80-96); MEAN PLT VOLUME 6.8 fl (7.5-11.1); MONO % 8.7 % (3.8-10.2); NEUT % 69.4 % (42.8-82.8); PLATELET COUNT 372 K/MM3 (134-434); RBC 3.08 M/mm3 (3.60-5.2); RDW 13.3 % (11.6-15.6); WHITE BLOOD COUNT 12.1 K/mm3 (4.0-10.0)
[2018-03-17 08:12] LABS: ANION GAP 8 MMOL/L (8-16); BLOOD UREA NITROGEN 16 mg/dL (7-18); CALCIUM 8.1 mg/dL (8.5-10.1); CHLORIDE 101 mmol/L (98-107); CO2 24 mmol/L (21-32); CREATININE 0.9 mg/dL (0.55-1.3); GLUCOSE,RANDOM 102 mg/dL (74-106); POTASSIUM 4.2 mmol/L (3.5-5.1); SODIUM 133 mmol/L (136-145)
--- NOTE | 2018-03-17 10:41 | PN ---
GI Progress Note Subjective: GI NOte: NO pain or diarrhea today. Hb stable. Tolerating diet. - Objective Vital Signs: Vital Signs Temperature 98.5 F 03/17/18 05:00 Pulse Rate 80 03/17/18 06:21 Respiratory Rate 18 03/17/18 05:00 Blood Pressure 109/58 L 03/17/18 06:21 O2 Sat by Pulse Oximetry (%) 96 03/16/18 21:00 Laboratory Tests 03/12/18 03/15/18 03/16/18 06:40 07:30 07:00 Hgb 10.0 L 9.0 L 9.0 L 03/17/18 06:00 Hgb 9.4 L Constitutional: Calm ...Auscultate: Yes: Normoactive Bowel Sounds ...Palpate: Yes: Soft, Other (nontender) Labs: CBC, BMP 03/17/18 06:00 03/17/18 06:00 Assessment/Plan Colitis with rectosigmoid stricture- believe that ischemic colitis is more likely than UBD but malignancy cannot be excluded Will order gastrograffin enema to assess the severity of obstruction caused by this stricture and determine the need for surgery GGE may also help to determine whether or not the stricture is malignant Problem List - Problems (1) Colitis Code(s): K52.9 - NONINFECTIVE GASTROENTERITIS AND COLITIS, UNSPECIFIED (2) Colonic obstruction Code(s): K56.609 - UNSP INTESTNL OBST, UNSP TO PARTIAL VERSUS COMPLETE OBST (3) Rectal bleeding Code(s): K62.5 - HEMORRHAGE OF ANUS AND RECTUM (4) Diarrhea Code(s): R19.7 - DIARRHEA, UNSPECIFIED Qualifiers: Diarrhea type: unspecified type Qualified Code(s): R19.7 - Diarrhea, unspecified (5) Stricture intestinal Code(s): K56.699 - OTHER INTESTNL OBST UNSP TO PARTIAL VERSUS COMPLETE OBST
[2018-03-17] MEDS: AMINO ACIDS/PROTEIN HYDROLYS 30 ML LIQUID.PKT PO SCH ×3 (11:41→18:23)
[2018-03-17] MEDS: POTASSIUM CHLORIDE TABS 20 MEQ TABLET.ER (FP) PO SCH ×2 (11:42→14:03)
[2018-03-17] MEDS: METHIMAZOLE 10 MG TABLET (FP) PO SCH ×2 (11:42→21:49)
[2018-03-17] MEDS: FERROUS SO4 325 MG TABLET (FP) PO SCH (11:42)
[2018-03-17] MEDS: DIGOXIN 0.125 MG TABLET (FP) PO SCH (11:42)
[2018-03-17] MEDS: LACTOBACILLUS ACIDOPHILUS 1 TABLET PO SCH (11:42)
[2018-03-17] MEDS: AMANTADINE HCL 100 MG TABLET PO SCH (11:43)
--- NOTE | 2018-03-17 12:16 | PN ---
Physical Exam: SUBJECTIVE: Patient seen and examined. She is comfortable lying in bed. She denies abdominal pain, nausea, diarrhea. OBJECTIVE: Vital Signs Period Temp Pulse Resp BP Sys/Watkins Pulse Ox Last 24 Hr 98 F-98.5 F 64-80 18-20 90-109/46-59 96 GENERAL: The patient is awake, alert, and fully oriented, in no acute distress. LUNGS: Breath sounds equal, clear to auscultation bilaterally, no wheezes, no crackles, no accessory muscle use. HEART: Irregularly irregular. ABDOMEN: Soft, nontender, nondistended, normoactive bowel sounds, no guarding, no rebound, no hepatosplenomegaly, no masses. EXTREMITIES: 2+ pulses, warm, well-perfused, no edema. Laboratory Results - last 24 hr 03/17/18 03/17/18 03/17/18 06:00 06:00 06:00 WBC 12.1 H RBC 3.08 L Hgb 9.4 L Hct 29.5 L MCV 95.8 MCH 30.4 MCHC 31.7 L RDW 13.3 Plt Count 372 MPV 6.8 L Absolute Neuts (auto) 8.4 H Neutrophils % 69.4 Lymphocytes % 21.4 Monocytes % 8.7 Eosinophils % 0.2 Basophils % 0.3 Nucleated RBC % 0 ESR 97 H Sodium 133 L Potassium 4.2 Chloride 101 Carbon Dioxide 24 Anion Gap 8 BUN 16 Creatinine 0.9 Creat Clearance w eGFR > 60 Random Glucose 102 Calcium 8.1 L Active Medications Generic Name Dose Route Start Last Admin Trade Name Freq PRN Reason Stop Dose Admin Acetaminophen 650 mg 03/07/18 14:44 Tylenol - PO Q4H PRN PAIN Amantadine HCl 100 mg 03/08/18 10:00 03/17/18 11:43 Symmetrel - PO 100 mg DAILY [facility] Administration Amino Acids 30 ml 03/07/18 17:30 03/17/18 11:53 Prosource No Carb Liquid Pkt PO Not Given BID@0800,1730 [facility] Digoxin 0.125 mg 03/08/18 10:00 03/17/18 11:42 Lanoxin - PO 0.125 mg DAILY [facility] Administration Diltiazem HCl 180 mg 03/08/18 10:00 03/17/18 11:42 Cardizem Cd - PO 180 mg DAILY [facility] Administration Ferrous Sulfate 325 mg 03/08/18 10:00 03/17/18 11:42 Feosol - PO 325 mg DAILY [facility] Administration Gabapentin 100 mg 03/07/18 14:45 03/17/18 03:13 Neurontin - PO 100 mg Q12H [facility] Administration Hydrocortisone 60 mg 03/16/18 22:00 03/16/18 22:58 Cortenema - RC Not Given HS MELANY Lactobacillus Acidophilus 1 tab 03/08/18 10:00 03/17/18 11:42 Bacid - PO 1 tab DAILY [facility] Administration Methimazole 20 mg 03/11/18 10:00 03/17/18 11:42 Tapazole - PO 20 mg BID [facility] Administration Potassium Chloride 20 meq 03/08/18 10:00 03/17/18 11:42 K-Dur - PO 20 meq DAILY [facility] Administration Potassium Phos/Sodium Phos 1 packet 03/07/18 22:00 03/17/18 06:23 Phos-Nak Packet - PO 1 packet TID [facility] Administration Propranolol HCl 60 mg 03/10/18 06:00 03/17/18 06:22 Inderal - PO 60 mg TID [facility] Administration ASSESSMENT/PLAN: 1. Rectal bleeding, history of colitis - Colonoscopy 03/11 revealed circumferential, nodular thickening with friability in the rectum and rectosigmoid with narrowing through which pediatric colonoscope could not be advanced - Biopsies show chronic active colitis with ulceration - CEA elevated 19.9 - CA 19-9, CA 125, B-HCG normal - Hydrocortisone enemas started - Plan for gastrograffin enema to evaluate stricture and determine need for surgery 2. Atrial fibrillation - Rate controlled - Continue Cardizem CD, Inderal, Digoxin 3. Parkinson disease with dystonia, hypophonia - Continue Amantadine 4. 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 Severe malnutrition 6. Hyperthyroidism - Continue Tapazole, Inderal 7. HTN - Continue Cardizem CD, Inderal 8. AAA 9. Anemia, macrocytic - B12, folate, TSH normal last month - Hemoglobin is stable - Continue ferrous sulfate - Ferritin is low normal - Iron, iron saturation, TIBC are low 10. Hypomagnesemia - Improved 11. Hypophosphatemia - Improved 12. Hypokalemia - Improved 13. Hyponatremia, mild - Monitor electrolytes Visit type - Emergency Visit Emergency Visit: Yes ED Registration Date: 03/07/18 Care time: The patient presented to the Emergency Department on the above date and was hospitalized for further evaluation of their emergent condition. - New Patient This patient is new to me today: No - Critical Care Critical Care patient: No - Discharge Referral Referred to [facility] Med P.C.: No
[2018-03-17] MEDS ORDERED: PT OWN MED DRAWER 7, Y5N ONE (20:16)
[2018-03-17] MEDS: HYDROCORTISONE 100 MG/60 ML RECTAL ENEMA RC SCH (21:49)
[2018-03-18] MEDS: GABAPENTIN 100 MG CAPSULE (FP) PO SCH ×2 (02:58→14:37)
[2018-03-18] MEDS: NAPH,MB-DB/K PH,MBDB POWDER PACKET PO SCH ×3 (06:32→22:15)
[2018-03-18] MEDS ORDERED: PT OWN MED DRAWER 7, Y5N ONE ×4 (06:58→22:23)
[2018-03-18 08:06] LABS: HEMATOCRIT 28.5 % (32.4-45.2); HEMOGLOBIN 9.7 GM/dL (10.7-15.3); MCH 31.9 pg (25.7-33.7); MCHC 33.9 g/dl (32.0-36.0); MEAN CELL VOLUME 94.1 fl (80-96); MEAN PLT VOLUME 6.6 fl (7.5-11.1); PLATELET COUNT 378 K/MM3 (134-434); RBC 3.03 M/mm3 (3.60-5.2); RDW 13.3 % (11.6-15.6); WHITE BLOOD COUNT 11.8 K/mm3 (4.0-10.0)
[2018-03-18 08:36] LABS: ANION GAP 8 MMOL/L (8-16); BLOOD UREA NITROGEN 15 mg/dL (7-18); CALCIUM 8.1 mg/dL (8.5-10.1); CHLORIDE 102 mmol/L (98-107); CO2 24 mmol/L (21-32); CREATININE 0.9 mg/dL (0.55-1.3); GLUCOSE,RANDOM 86 mg/dL (74-106); POTASSIUM 4.1 mmol/L (3.5-5.1); SODIUM 134 mmol/L (136-145)
[2018-03-18] MEDS: AMINO ACIDS/PROTEIN HYDROLYS 30 ML LIQUID.PKT PO SCH ×2 (08:54→17:10)
--- NOTE | 2018-03-18 10:51 | PN ---
GI Progress Note Subjective: GI NOte: No pain or diarrhea. Tolerating diet. I explained to Elizabeth that she is going for a GGE - Objective Vital Signs: Vital Signs Temperature 97.5 F L 03/18/18 07:22 Pulse Rate 91 H 03/18/18 07:22 Respiratory Rate 18 03/18/18 07:22 Blood Pressure 108/81 03/18/18 07:22 O2 Sat by Pulse Oximetry (%) 96 03/17/18 21:00 Constitutional: Calm ...Auscultate: Yes: Normoactive Bowel Sounds ...Palpate: Yes: Soft, Other (nontender) Labs: CBC, BMP 03/18/18 07:35 03/18/18 07:35 Assessment/Plan For gastrograffin enema to assess the severity of obstruction caused by this stricture and determine the need for surgery GGE may also help to determine whether or not the stricture is malignant Problem List - Problems (1) Colitis Assessment/Plan: Suspect ischemic colitis with stricturing. For GGE to assess severity and to help try to exclude a malignancy Code(s): K52.9 - NONINFECTIVE GASTROENTERITIS AND COLITIS, UNSPECIFIED (2) Colonic obstruction Code(s): K56.609 - UNSP INTESTNL OBST, UNSP TO PARTIAL VERSUS COMPLETE OBST (3) Rectal bleeding Code(s): K62.5 - HEMORRHAGE OF ANUS AND RECTUM (4) Diarrhea Code(s): R19.7 - DIARRHEA, UNSPECIFIED Qualifiers: Diarrhea type: unspecified type Qualified Code(s): R19.7 - Diarrhea, unspecified (5) Stricture intestinal Code(s): K56.699 - OTHER INTESTNL OBST UNSP TO PARTIAL VERSUS COMPLETE OBST
[2018-03-18] MEDS: DIGOXIN 0.125 MG TABLET (FP) PO SCH (11:51)
[2018-03-18] MEDS: LACTOBACILLUS ACIDOPHILUS 1 TABLET PO SCH (11:51)
[2018-03-18] MEDS: POTASSIUM CHLORIDE TABS 20 MEQ TABLET.ER (FP) PO SCH (11:52)
[2018-03-18] MEDS: METHIMAZOLE 10 MG TABLET (FP) PO SCH ×2 (11:52→22:23)
[2018-03-18] MEDS: AMANTADINE HCL 100 MG TABLET PO SCH (11:52)
[2018-03-18] MEDS: FERROUS SO4 325 MG TABLET (FP) PO SCH (11:52)
--- NOTE | 2018-03-18 15:03 | PN ---
Progress Note, Physician Chief Complaint: Pt sitting in bed in no acute distress. Reports feeling well. No diarrhea. tolerating diet. Aiden at bedside. pt verbalizes she does not want surgery. Denies any chest pain, sob, n/v - Current Medication List Current Medications: Active Medications Acetaminophen (Tylenol -) 650 mg PO Q4H PRN PRN Reason: PAIN Amantadine HCl (Symmetrel -) 100 mg PO DAILY [facility] Last Admin: 03/18/18 11:52 Dose: 100 mg Amino Acids (Prosource No Carb Liquid Pkt) 30 ml PO BID@0800,1730 [facility] Last Admin: 03/18/18 08:54 Dose: Not Given Digoxin (Lanoxin -) 0.125 mg PO DAILY [facility] Last Admin: 03/18/18 11:51 Dose: 0.125 mg Diltiazem HCl (Cardizem Cd -) 180 mg PO DAILY [facility] Last Admin: 03/18/18 11:50 Dose: Not Given Ferrous Sulfate (Feosol -) 325 mg PO DAILY [facility] Last Admin: 03/18/18 11:52 Dose: 325 mg Gabapentin (Neurontin -) 100 mg PO Q12H [facility] Last Admin: 03/18/18 14:37 Dose: Not Given Hydrocortisone (Cortenema -) 60 mg RC HS [facility] Last Admin: 03/17/18 21:49 Dose: 60 mg Lactobacillus Acidophilus (Bacid -) 1 tab PO DAILY [facility] Last Admin: 03/18/18 11:51 Dose: 1 tab Methimazole (Tapazole -) 20 mg PO BID [facility] Last Admin: 03/18/18 11:52 Dose: 20 mg Potassium Chloride (K-Dur -) 20 meq PO DAILY [facility] Last Admin: 03/18/18 11:52 Dose: 20 meq Potassium Phos/Sodium Phos (Phos-Nak Packet -) 1 packet PO TID [facility] Last Admin: 03/18/18 14:37 Dose: Not Given Propranolol HCl (Inderal -) 60 mg PO TID [facility] Last Admin: 03/18/18 14:37 Dose: Not Given - Objective Vital Signs: Vital Signs Temperature 98.2 F 03/18/18 11:00 Pulse Rate 85 03/18/18 11:51 Respiratory Rate 20 03/18/18 11:00 Blood Pressure 99/57 L 03/18/18 11:00 O2 Sat by Pulse Oximetry (%) 96 03/17/18 21:00 Constitutional: Yes: No Distress, Calm, Thin Cardiovascular: Yes: Pulse Irregular Respiratory: Yes: WNL, Regular, CTA Bilaterally. No: Tachypnea, Wheezes Gastrointestinal: Yes: WNL, Normal Bowel Sounds, Soft, Tenderness. No: Distention Genitourinary: Yes: WNL Extremities: Yes: WNL Edema: No Neurological: Yes: Alert, Oriented Psychiatric: Yes: WNL, Alert, Oriented Labs: CBC, BMP 03/18/18 07:35 03/18/18 07:35 Assessment/Plan (2) S/P colonoscopy Assessment/Plan: s/p colonoscopy, biopsy neg for malignancy biopsy- chronic active colitis, management per GI continue hydrocortisone enemas surgery consult noted- recommend colorectal surgeon pt refused gastrografin and reports she does not want surgery at this point. pending gi clearance Code(s): Z98.890 - OTHER SPECIFIED POSTPROCEDURAL STATES (2) Colonic obstruction Assessment/Plan: as above Code(s): K56.609 - UNSP INTESTNL OBST, UNSP TO PARTIAL VERSUS COMPLETE OBST (3) Colitis Assessment/Plan: recurrent colitis on abd ct cdiff negative defer further management to GI Code(s): K52.9 - NONINFECTIVE GASTROENTERITIS AND COLITIS, UNSPECIFIED (4) Rectal bleeding Assessment/Plan: resolved Code(s): K62.5 - HEMORRHAGE OF ANUS AND RECTUM (5) Atrial fibrillation Assessment/Plan: rate controlled continue home meds AC contraindicated 2/2 risk for falls Code(s): I48.91 - UNSPECIFIED ATRIAL FIBRILLATION (6) Chronic diarrhea Assessment/Plan: improved Code(s): K52.9 - NONINFECTIVE GASTROENTERITIS AND COLITIS, UNSPECIFIED (7) Occult blood in stools Assessment/Plan: hg/hct stable Code(s): R19.5 - OTHER FECAL ABNORMALITIES (8) Parkinson disease Assessment/Plan: chronic dystonia, bradykinisia with intermittent confusion home med: rytary 36.25/145 2 caps bid outpt neurology f/u Code(s): G20 - PARKINSON'S DISEASE (9) Peripheral vascular disease Assessment/Plan: s/p angiogram, stent lle , 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 hold plavix x 7 days Code(s): I73.9 - PERIPHERAL VASCULAR DISEASE, UNSPECIFIED (10) Severe malnutrition Assessment/Plan: ensure encourage po intake ensure supplements Code(s): E43 - UNSPECIFIED SEVERE PROTEIN-CALORIE MALNUTRITION (11) Dystonia Assessment/Plan: secondary to PD chronic Code(s): G24.9 - DYSTONIA, UNSPECIFIED (12) Hypophonia Assessment/Plan: secondary to PD chronic Code(s): R49.8 - OTHER VOICE AND RESONANCE DISORDERS (13) Hyperthyroidism Assessment/Plan: stable continue tapazole 20 bid outpt endocrine f/u Code(s): E05.90 - THYROTOXICOSIS, UNSP WITHOUT THYROTOXIC CRISIS OR STORM (14) HTN (hypertension) Assessment/Plan: controlled meds per parameters Code(s): I10 - ESSENTIAL (PRIMARY) HYPERTENSION Qualifiers: Hypertension type: essential hypertension Qualified Code(s): I10 - Essential (primary) hypertension (15) AAA (abdominal aortic aneurysm) Assessment/Plan: 4.8cm, chronic recommend close f/u with cardiology outpt Code(s): I71.4 - ABDOMINAL AORTIC ANEURYSM, WITHOUT RUPTURE Qualifiers: Presence of rupture: without rupture Qualified Code(s): I71.4 - Abdominal aortic aneurysm, without rupture (16) Hypomagnesemia Assessment/Plan: improved Code(s): E83.42 - HYPOMAGNESEMIA Dispo: home , pending gi clearance Discussed with pt and Aiden the recommended plan from GI and surgeon here which is to transfer to another hospital to be evaluated by colorectal surgeon. Pt reports she does not want surgery and does not want to consider at this moment. Pt reports she rather follow up outpt.
[2018-03-18] MEDS: POLYETHYLENE GLYCOL 3350 119 GM BTL PO SCH (17:11)
[2018-03-18] MEDS: HYDROCORTISONE 100 MG/60 ML RECTAL ENEMA RC SCH (22:09)
[2018-03-19] MEDS: GABAPENTIN 100 MG CAPSULE (FP) PO SCH (05:45)
[2018-03-19] MEDS: NAPH,MB-DB/K PH,MBDB POWDER PACKET PO SCH (05:49)
[2018-03-19] MEDS: AMINO ACIDS/PROTEIN HYDROLYS 30 ML LIQUID.PKT PO SCH ×2 (08:12→11:33)
[2018-03-19] MEDS ORDERED: PT OWN MED DRAWER 7, Y5N ONE ×3 (08:17→11:27)
[2018-03-19] MEDS: LACTOBACILLUS ACIDOPHILUS 1 TABLET PO SCH (10:12)
[2018-03-19] MEDS: FERROUS SO4 325 MG TABLET (FP) PO SCH (10:12)
[2018-03-19] MEDS: DIGOXIN 0.125 MG TABLET (FP) PO SCH (10:12)
[2018-03-19] MEDS: POLYETHYLENE GLYCOL 3350 119 GM BTL PO SCH (10:13)
[2018-03-19] MEDS: POTASSIUM CHLORIDE TABS 20 MEQ TABLET.ER (FP) PO SCH ×2 (10:13→11:32)
[2018-03-19] MEDS: METHIMAZOLE 10 MG TABLET (FP) PO SCH (10:14)
[2018-03-19] MEDS: AMANTADINE HCL 100 MG TABLET PO SCH (10:15)
[2018-03-19 11:01] VITALS: BP 102/56; PULSE 83; TEMP 97.3
--- NOTE | 2018-03-19 11:46 | DS ---
Physical Examination Vital Signs: Vital Signs Temperature 97.3 F L 03/19/18 10:00 Pulse Rate 83 03/19/18 10:12 Respiratory Rate 20 03/19/18 10:00 Blood Pressure 102/56 L 03/19/18 10:00 O2 Sat by Pulse Oximetry (%) 96 03/17/18 21:00 Constitutional: Yes: No Distress, Calm, Thin Cardiovascular: Yes: Pulse Irregular. No: Murmur Respiratory: Yes: WNL, Regular, CTA Bilaterally. No: Accessory Muscle Use, SOB , Tachypnea, Wheezes Gastrointestinal: Yes: WNL, Normal Bowel Sounds, Soft. No: Distention, Tenderness, Vomiting Renal/: Yes: WNL Extremities: Yes: WNL Edema: No Neurological: Yes: Alert, Oriented, Confusion (intermittent) Psychiatric: Yes: WNL, Alert, Oriented Labs: CBC, BMP 03/18/18 07:35 03/18/18 07:35 Discharge Summary Reason For Visit: RECTAL HEMORRHAGE Current Active Problems Colitis (Acute) Colonic obstruction (Acute) Hypomagnesemia (Acute) Rectal bleeding (Acute) Rectal mass (Acute) S/P colonoscopy (Acute) Stricture intestinal (Acute) Uterine cancer (Acute) Hospital Course: is 72 year old female with a history of parkinson's disease, c. diff colitis w/ multiple hospital admissions for colitis, afib, hyperthyroidism,and AAA who was admitted for evaluation of diarrhea and rectal bleeding. Pt evaluated by GI. CT scan w/ persistent colitis of transverse, descending, and sigmoid colon. Colitis also noted on CT scan 12/09. All infectious work up negative. Pt s/p colonoscopy, unable to pass pediatric colonoscope past resctosigmoid due to significant narrowing and nodular thickening. Pathology neg for malignancy, revealed chronic active colitis. Rectal bleeding improved, suspect 2/2 colitis, true GIB unlikely, hg/hct stable and at baseline. Pt evaluated by general surgery here who recommended transfer to a colorectal surgeon. During her course of stay, rectal bleeding has resolved, still with diarrhea, pt received 2 days of hydrocortisone enemas, a gastrografin was ordered however pt has refused this procedure. Pt and consent to transfer to [facility] for surgical evaluation. 45 minutes spent in discharge planning. Condition: Fair - Instructions Diet, Activity, Other Instructions: resume activity, diet as tolerated Referrals: Manohar Ramirez MD [Primary Care Provider] - 1 Week Aris Sharpe MD [Staff Physician] - 2 Weeks Disposition: VNS/HOME HEALTH CARE - Home Medications Comprehensive Discharge Medication List: Ambulatory Orders Amantadine HCl [Amantadine] 100 mg PO DAILY 11/25/17 Carbidopa/Levodopa [Rytary ER 36.25 mg-145 mg Cap] 1 each PO BID 11/25/17 Clopidogrel Bisulfate [Plavix] 75 mg PO DAILY 11/25/17 Diltiazem Cd [Cardizem Cd -] 180 mg PO DAILY 11/25/17 Lactobacillus Acidophilus [Acidophilus] 1 each PO DAILY 11/25/17 Potassium Chloride [K-Dur -] 20 meq PO DAILY 11/25/17 Propranolol HCl 60 mg PO TID 11/25/17 Sodium,Potassium Phosphates [Phos-Nak Packet] 1 each PO TID 11/25/17 Amino Acids/Protein Hydrolys [Prosource No Carb Liquid Pkt] 30 ml PO BID@0800, 1730 packet 12/01/17 Methimazole [Tapazole -] 20 mg PO Q12H tablet 12/01/17 Digoxin [Lanoxin -] 0.125 mg PO DAILY 12/18/17 Gabapentin [Neurontin -] 100 mg PO Q12H 12/18/17 Ferrous Sulfate 325 mg PO DAILY 02/08/18 Potassium Chloride 10 meq PO DAILY 02/08/18
== END 2018-03-19 12:57 | disposition short-term general hospital (02) | DRG 377 ==
LOC: JER 09:22 → JERBED 14:12 → J6S 15:12 → UNDODISIN 03-16 14:12
PROVIDERS: ADMIT Internal Medicine; ATTEND Nurse Practitioner Family
PROC: 0DBN8ZX Excision of Sigmoid Colon, Via Natural or Artificial Opening Endoscopic, Diagnostic (ICD-10-PCS; 2018-03-11)
PROC: 0DBP8ZX Excision of Rectum, Via Natural or Artificial Opening Endoscopic, Diagnostic (ICD-10-PCS; principal; 2018-03-11 08:00)
DX: K62.5 Hemorrhage of anus and rectum (principal); E43 Unspecified severe protein-calorie malnutrition; K56.699 Other intestinal obstruction unspecified as to partial versus complete obstruction; K52.9 Noninfective gastroenteritis and colitis, unspecified; E83.42 Hypomagnesemia; I48.91 Unspecified atrial fibrillation; I10 Essential (primary) hypertension; E05.90 Thyrotoxicosis, unspecified without thyrotoxic crisis or storm; Z89.422 Acquired absence of other left toe(s); Z87.891 Personal history of nicotine dependence; G24.9 Dystonia, unspecified; E87.6 Hypokalemia; G20 Parkinson's disease; I73.9 Peripheral vascular disease, unspecified; R49.8 Other voice and resonance disorders; I71.4 Abdominal aortic aneurysm, without rupture; E83.39 Other disorders of phosphorus metabolism; D53.9 Nutritional anemia, unspecified
CPT/HCPCS: 36415; 74018-TC-FY; 74177-TC; 80048; 80053; 81003; 81015; 82272; 82378; 82728; 83540; 83550; 83605; 83615; 83735; 84100; 84702; 85025; 85027; 85651; 86301; 86304; 86850; 86900; 86901; 87086; 87324; 87449; 88305-TC; 93005; 93010; 97116-GP; 97161-GP; 99285-25; J7030

== ENCOUNTER 2018-05-17 19:18 | Inpatient (IN) | payer OTHER ==
--- NOTE | 2018-05-17 19:55 | PDOC ---
History of Present Illness - General Chief Complaint: Weakness Stated Complaint: LOW BLOOD PRESSURE - History of Present Illness Initial Comments: 05/17/18 19:48 72 yo female with PMH Parkinson's, recurrent C-dif previously, A-fib, Hyperthyroid, AAA, recent admisison for colitis with transfer to [facility] for colorectal surgery eval (colitis resolved) presents today with an episode of 15- 20 minutes of chest pain associated with SOB. She states she had a similar episode last night which was resolved with a medication for heart burn that the gave her. She states the pain does not radiate anywhere. She states that she was having some chills earlier but currently only endorses feeling warm. Pt's endorses that she has had some increased weakness over the last few days and a few episodes of slumping over in the wheelchair, however denies any loss of consciousness or focal neurological deficits. Of note during the encounter, she had a very short episode of difficulty breathing and chest pain lasting about 30 seconds which resolved. For now the pain and SOB seems to be intermittent. She states she was reading the paper when the pain came on. Past History - Past Medical History Allergies/Adverse Reactions: Allergies Allergy/AdvReac Type Severity Reaction Status Date / Time aspirin Allergy Verified 05/17/18 19:41 Penicillins Allergy Verified 05/17/18 19:41 Home Medications: Ambulatory Orders Amantadine HCl [Amantadine] 100 mg PO DAILY 11/25/17 Carbidopa/Levodopa [Rytary ER 36.25 mg-145 mg Cap] 1 each PO BID 11/25/17 Clopidogrel Bisulfate [Plavix] 75 mg PO DAILY 11/25/17 Diltiazem Cd [Cardizem Cd -] 180 mg PO DAILY 11/25/17 Lactobacillus Acidophilus [Acidophilus] 1 each PO DAILY 11/25/17 Potassium Chloride [K-Dur -] 20 meq PO DAILY 11/25/17 Propranolol HCl 60 mg PO TID 11/25/17 Sodium,Potassium Phosphates [Phos-Nak Packet] 1 each PO TID 11/25/17 Amino Acids/Protein Hydrolys [Prosource No Carb Liquid Pkt] 30 ml PO BID@0800, 1730 packet 12/01/17 Methimazole [Tapazole -] 20 mg PO Q12H tablet 12/01/17 Digoxin [Lanoxin -] 0.125 mg PO DAILY 12/18/17 Gabapentin [Neurontin -] 100 mg PO Q12H 12/18/17 Ferrous Sulfate 325 mg PO DAILY 02/08/18 Potassium Chloride 10 meq PO DAILY 02/08/18 Ascorbic Acid [Vitamin C -] 500 mg PO DAILY 05/17/18 Anemia: Yes Asthma: No Cancer: Yes (Breast) Cardiac Disorders: Yes (afib, AAA) CVA: No COPD: No CHF: No DVT: No Dementia: No Diabetes: No GI Disorders: No Disorders: No HTN: Yes Hypercholesterolemia: Yes Liver Disease: No Seizures: No Thyroid Disease: No - Surgical History Abdominal Surgery: No Appendectomy: No Cardiac Surgery: No Cholecystectomy: No Lung Surgery: No Neurologic Surgery: No Orthopedic Surgery: No - Immunization History Immunization Up to Date: Yes - Suicide/Smoking/Psychosocial Hx Smoking History: Never smoked Have you smoked in the past 12 months: No Number of Cigarettes Smoked Daily: 5 If you are a former smoker, when did you quit?: august 2016 'Breaking Loose' booklet given: 06/28/17 Hx Alcohol Use: No Drug/Substance Use Hx: No Substance Use Type: None Hx Substance Use Treatment: No *Physical Exam - Vital Signs Last Vital Signs Temp Pulse Resp BP Pulse Ox 64 22 H 93/62 99 05/17/18 19:40 05/17/18 19:40 05/17/18 19:40 05/17/18 19:40 - Physical Exam Comments: 05/17/18 19:53 GEN: A&O, mild intermittent distress HEENT: PERRL, EOMI, dry mucus membranes NECK: supple, mildly enlarged circumference, no thyroid nodules noted, HEART: Irregularly irregular LUNGS: CTA b/l, no wheezes, crackles, or rhonchi ABDOMEN: Soft, nontender, normoactive bowel sounds NEURO: Slow somewhat slurred speech, able to follow commands and communicate appropriately EXTREMITIES: No peripheral edema, 2+ pulses, no calf tenderness Moderate Sedation - Procedure Monitoring Vital Signs: Procedure Monitoring Vital Signs Temperature Pulse Rate 64 05/17/18 19:40 Respiratory Rate 22 H 05/17/18 19:40 Blood Pressure 93/62 05/17/18 19:40 O2 Sat by Pulse Oximetry (%) 99 05/17/18 19:40 ED Treatment Course - LABORATORY CBC & Chemistry Diagram: 05/17/18 20:13 05/17/18 20:13 Medical Decision Making - Medical Decision Making 05/17/18 19:53 72 yo female with PMH mentioned above presents with intermittent chest pain and SOB and some increased weakness over the last few days as per the . Will order stat EKG, CBC, CMP, Cardiac Profile, UA/culture, CXR 05/17/18 22:48 EKG Low voltage, Afib with rate 61. WBC count 15.5. RACHELLE noted, will give 2nd liter bolus NS. (1L given by EMS). Very mininal urine output from straight cath. LFTs elevated, Tbili 1.5, Dbili 0.8. Initially ordered RUQ US / CT scan, pt refused. Glucose noted 57. amp D50 given. Recheck BGM 1 hour following K+ 6.0, discussed with lab who states sample was not hemolyzed. Additional amp D50 given with 10 units novolin. No EKG changes noted related to hyperkalemia. 05/17/18 23:52 Pt returned, convincing pt to comply with CT scan and US. CT prelim read with likely cholecystitis. RUQ US prelim read pending. UA noted with LE 3+ and >300 WBCs Will cover with broad spectrum abx Vancomycin 1 gm IV and Meropenem 1 gm IV for now with blood/urine cultures pending. (pt is pcn allergic) Will discuss with hospitalist for likely admission, IV abx, possible GI and surgery evaluation. 05/18/18 00:34 Repeat Chemistry, Troponin, sent in addition to Lactic acid *DC/Admit/Observation/Transfer Diagnosis at time of Disposition: UTI (urinary tract infection), RACHELLE (acute kidney injury), Cholecystitis - Discharge Dispostion Condition at time of disposition: Stable Decision to Admit order: Yes - Referrals Referrals: Manohar Ramirez MD [Primary Care Provider] - - Patient Instructions - Post Discharge Activity
[2018-05-17 20:27] LABS: BASO % 0.2 % (0-2.0); HEMATOCRIT 30.2 % (32.4-45.2); HEMOGLOBIN 9.4 GM/dL (10.7-15.3); LYMPH % 18.8 % (8-40); MCH 28.4 pg (25.7-33.7); MEAN CELL VOLUME 91.5 fl (80-96); MEAN PLT VOLUME 8.1 fl (7.5-11.1); MONO % 10.5 % (3.8-10.2); NEUT % 70.5 % (42.8-82.8); PLATELET COUNT 348 K/MM3 (134-434); RBC 3.29 M/mm3 (3.60-5.2); RDW 16.8 % (11.6-15.6); WHITE BLOOD COUNT 15.5 K/mm3 (4.0-10.0)
[2018-05-17] MEDS ORDERED: LACTATED RINGERS SOLUTION 1000 ML INFUS.BAG IV ONE (20:40)
[2018-05-17 20:43] LABS: INR 1.71 (0.83-1.09); PROTHROMBIN TIME (PATIENT) 20.3 SEC (9.7-13.0)
[2018-05-17 21:11] LABS: ALBUMIN 2.9 g/dl (3.4-5.0); ALK PHOS 147 U/L (45-117); ANION GAP 20 MMOL/L (8-16); BILIRUBIN,TOTAL 1.5 mg/dL (0.2-1); BLOOD UREA NITROGEN 31 mg/dL (7-18); CALCIUM 8.3 mg/dL (8.5-10.1); CHLORIDE 103 mmol/L (98-107); CO2 15 mmol/L (21-32); CREATININE 2.3 mg/dL (0.55-1.3); GLUCOSE,RANDOM 57 mg/dL (74-106); SGOT/AST 425 U/L (15-37); SGPT/ALT 243 U/L (13-61); SODIUM 137 mmol/L (136-145); TOT PROT 7.4 g/dl (6.4-8.2)
[2018-05-17] MEDS ORDERED: SODIUM CHLORIDE 0.9% 500 ML INFUS.BAG IV ONE (21:18)
[2018-05-17] MEDS ORDERED: HALOPERIDOL LACTATE 5 MG/ML IM STA (21:42)
[2018-05-17] MEDS ORDERED: DEXTROSE 50%-WATER - 25 GM/50 ML VIAL IVPUSH ONE ×2 (21:56→22:13)
--- NOTE | 2018-05-17 21:57 | PDOC ---
Attending Attestation - HPI HPI: 05/17/18 22:05 The patient is a 72 year old female, with a significant past medical history of Parkinson's, recurrent C-dif previously, A-fib, Hyperthyroid, AAA, recent admisison for colitis with transfer to [facility] for colorectal surgery eval ( colitis resolved), who presents to the emergency department today complaining of chest pain and SOB. The patient states before coming to the ED the patient experienced an episode of sharp, nonradiating, chest pain that lasted 15-20 min. Patient also experienced a similar episode upon arrival to the ED. Noted a normal echo last year. Of note, states that the patient has been weak and he has found her slumped over in her wheelchair. The patient denies headache and dizziness. Denies fever, chills, nausea, vomit, diarrhea and constipation. Denies dysuria, frequency, urgency and hematuria. Allergies: aspirin, penicillins Social history: None reported PCP: Dr. Ramirez <Thu Jaime - Last Filed: 05/17/18 22:05> - Resident Resident Name: John Thorpe - ED Attending Attestation I have performed the following: I have examined & evaluated the patient, The case was reviewed & discussed with the resident, I agree w/resident's findings & plan, Exceptions are as noted - Physicial Exam PE: 05/17/18 22:21 72 yo female brought in because of weakness,complaint of chest pain PMH significant for Parkinson;s disease 05/17/18 22:22 slender 72 yo female with c/o chest pain according to head ncat eyes eomi neck no bruits lungs no wheezing cvs irreg,irreg rhythm abd no rebound,no guarding ext no edema neuro alert but very poor historian, very soft voice due to advanced parkinson" s ds - Medical Decision Making 05/18/18 00:17 Review of labs review UTI, renal failure w creatinine =2.3, hyperkalemia of 6 , hypoglycemia =57, elevated LFT qte=290,LXA=776,Tbili 1.5 and direct bilirubin elevated 0.8 05/18/18 00:22 negative troponin pt given antibiotics ct scan showed thickened gallbladder wall,sludge, concern for infiltrates ADMIT <Luz Haskins - Last Filed: 05/18/18 00:24> Attestations - Attestations 05/17/18 22:07 Documentation prepared by Thu Jaime, acting as internist medical doctor md for Luz Haskins MD. <Thu Jaime - Last Filed: 05/17/18 22:05>
[2018-05-17] MEDS ORDERED: DEXTROSE 50%-WATER - 25 GM/50 ML VIAL ONE ×2 (21:59→22:17)
[2018-05-17] MEDS ORDERED: INSULIN REGULAR HUMAN 100 UNITS/ML *VIAL IVPUSH STA (22:08)
[2018-05-17] MEDS ORDERED: INSULIN REGULAR HUMAN 100 UNITS/ML *VIAL ONE (22:18)
[2018-05-17 22:19] LABS: BILIRUBIN,DIRECT 0.8 mg/dL (0.0-0.2)
[2018-05-17 22:22] LABS: URINE APPEARANCE TURBID; URINE BILIRUBIN NEGATIVE (<2.0 mg/dL); URINE COLOR AMBER; URINE GLUCOSE (UA) NEGATIVE (NEGATIVE); URINE KETONE NEGATIVE (NEGATIVE); URINE LEUK ESTERASE 3+ (NEGATIVE); URINE NITRITE NEGATIVE (NEGATIVE); URINE PROTEIN 2+ (NEGATIVE)
[2018-05-17 22:27] LABS: EPI CELLS RARE /HPF (FEW); URINE BACTERIA MODERATE /hpf (NONE SEEN); URINE HYALINE CAST 49 /lpf; URINE MUCUS RARE
[2018-05-17 22:31] LABS: LIPASE 35 U/L (73-393)
[2018-05-17] MEDS ORDERED: VANCOMYCIN 1 GM in D5W (PRE-DOCKED) 1,000 MG/250 ML IVPB ONE (23:04)
[2018-05-17] MEDS ORDERED: MEROPENEM 1 GM in DEXTROSE 5%-WATER 100 ML IVPB ONE (23:15)
[2018-05-17] MEDS ORDERED: VANCOMYCIN 1 GRAM (PRE-DOCKED) 1,000 MG/250 ML BAG IVPB ONE (23:21)
[2018-05-18 01:16] LABS: ALBUMIN 2.6 g/dl (3.4-5.0); ALK PHOS 146 U/L (45-117); ANION GAP 15 MMOL/L (8-16); BILIRUBIN,TOTAL 1.2 mg/dL (0.2-1); BLOOD UREA NITROGEN 34 mg/dL (7-18); CALCIUM 7.9 mg/dL (8.5-10.1); CHLORIDE 105 mmol/L (98-107); CO2 18 mmol/L (21-32); CREATININE 2.4 mg/dL (0.55-1.3); GLUCOSE,RANDOM 76 mg/dL (74-106); POTASSIUM 3.9 mmol/L (3.5-5.1); SGOT/AST 950 U/L (15-37); SGPT/ALT 568 U/L (13-61); SODIUM 138 mmol/L (136-145)
--- NOTE | 2018-05-18 01:26 | HP ---
CHIEF COMPLAINT: chest pain PCP: Dr. Ramirez HISTORY OF PRESENT ILLNESS: Limited history taken as pt is a poor historian. No family present at bedside upon encounter. ED documentation noted. 72F w/ pmhx of Parkinson's, afib, AAA, recurrent c. diff, hyperthyroidism, presented to the ED with complaints of chest pain. She states she had chest pain that started yesterday and lasted about 15 minutes after which it had resolved on its own. Upon encounter, pt was complaining of generalized body pain including chest and back. She denies f/c, sob, abd pain, and nilton PO diet. She denies recent episodes of diarrhea. According to ED note, pt's states pt has been non-compliant with medications, but tries to take the important ones. brought pt into the ED after finding her slumped over in a wheelchair and has noticed increased weakness over the past several days. He denied any loc or focal neurological deficits. Of note, she was recently admitted to the hospital on 02/2018 for diarrhea, after which she was found to have colitis. She was subsequently transferred to [facility] for tertiary workup and evaluation by a colorectal surgeon. Workup done at [facility] unknown at this time. ER course was notable for: (1) Temp 96.9, WBC 15.5, K 6.0, BUN/Cr 31/2.3, AST/ALT 425/243 --> 950/568, Alk P 147 --> 146 (2) Lac 8.3, Trop neg (3) IV Meropenem, IV Vancomycin, Insulin 10U, D50W x2, NS x1L Recent Travel: Denies PAST MEDICAL HISTORY: Parkinson's Afib AAA Recurrent C. diff Hyperthyroidism PAST SURGICAL HISTORY: R popliteal stent, toe amputation Social History: Unable to obtain today. Per previous records, Tobacco: Quit August 2016, previous heavy smoker x50 years Alcohol: Denies Drugs: Denies Family History: Unknown Allergies aspirin Allergy (Verified 05/17/18 19:41) Penicillins Allergy (Verified 05/17/18 19:41) HOME MEDICATIONS: Home Medications Medication Instructions Recorded Amantadine HCl [Amantadine] 100 mg PO DAILY 11/25/17 Carbidopa/Levodopa [Rytary ER 1 each PO BID 11/25/17 36.25 mg-145 mg Cap] Clopidogrel Bisulfate [Plavix] 75 mg PO DAILY 11/25/17 Diltiazem Cd [Cardizem Cd -] 180 mg PO DAILY 11/25/17 Lactobacillus Acidophilus 1 each PO DAILY 11/25/17 [Acidophilus] Potassium Chloride [K-Dur -] 20 meq PO DAILY 11/25/17 Propranolol HCl 60 mg PO TID 11/25/17 Sodium,Potassium Phosphates 1 each PO TID 11/25/17 [Phos-Nak Packet] Amino Acids/Protein Hydrolys 30 ml PO BID@0800,1730 packet 12/01/17 [Prosource No Carb Liquid Pkt] Methimazole [Tapazole -] 20 mg PO Q12H tablet 12/01/17 Digoxin [Lanoxin -] 0.125 mg PO DAILY 12/18/17 Gabapentin [Neurontin -] 100 mg PO Q12H 12/18/17 Ferrous Sulfate 325 mg PO DAILY 02/08/18 Potassium Chloride 10 meq PO DAILY 02/08/18 Ascorbic Acid [Vitamin C -] 500 mg PO DAILY 05/17/18 REVIEW OF SYSTEMS CONSTITUTIONAL: Absent: fever, chills, diaphoresis, generalized weakness, malaise, loss of appetite, weight change HEENT: Absent: rhinorrhea, nasal congestion, throat pain, throat swelling, difficulty swallowing, mouth swelling, ear pain, eye pain, visual changes CARDIOVASCULAR: +chest pain Absent: syncope, palpitations, irregular heart rate, lightheadedness, peripheral edema RESPIRATORY: Absent: cough, shortness of breath, dyspnea with exertion, orthopnea, wheezing, GASTROINTESTINAL: +abd pain Absent: abdominal distension, nausea, vomiting, diarrhea, constipation, melena, hematochezia GENITOURINARY: Absent: dysuria, frequency, urgency, hesitancy, hematuria, flank pain, genital pain MUSCULOSKELETAL: +back pain Absent: myalgia, arthralgia, joint swelling, neck pain PHYSICAL EXAMINATION Vital Signs - 24 hr 05/17/18 05/17/18 05/17/18 19:40 20:42 21:58 Temperature 96.9 F L Pulse Rate 64 Respiratory 22 H Rate Blood Pressure 93/62 Blood Pressure 97/55 L [Right Arm] O2 Sat by Pulse 99 Oximetry (%) 05/18/18 01:19 Temperature 97.2 F L Pulse Rate Respiratory Rate Blood Pressure Blood Pressure [Right Arm] O2 Sat by Pulse Oximetry (%) GENERAL: Awake and alert. Cachetic. Sluggish with verbal responses, but able to understand and respond appropriately. HEENT: AT/NC. EOMI. GRISEL. Dry mucus membranes. NECK: Normal range of motion, supple without lymphadenopathy, JVD, or masses. LUNGS: R crackles at lower lung base. Symmetric chest rise. HEART: Irregularly, irregular. No murmurs noted. ABDOMEN: Soft, mild TTP diffusely. Normoactive bowel sounds. non-distended. MUSCULOSKELETAL: Normal range of motion at all joints. No bony deformities or tenderness. No CVA tenderness. EXTREMITIES: Cool b/l u/l. 1+ dorsalis pedis pulses b/l. NEUROLOGICAL: Responds to commands. Laboratory Results - last 24 hr 05/17/18 05/17/18 05/17/18 20:13 20:13 20:13 WBC 15.5 H RBC 3.29 L Hgb 9.4 L Hct 30.2 L MCV 91.5 MCH 28.4 D MCHC 31.0 L RDW 16.8 H Plt Count 348 MPV 8.1 D Absolute Neuts (auto) 10.9 H Neutrophils % 70.5 Lymphocytes % 18.8 Monocytes % 10.5 H Eosinophils % 0.0 D Basophils % 0.2 Nucleated RBC % 0 PT with INR 20.30 H INR 1.71 H Sodium 137 Potassium 6.0 H Chloride 103 Carbon Dioxide 15 L Anion Gap 20 H BUN 31 H Creatinine 2.3 H Creat Clearance w eGFR 20.79 Random Glucose 57 L Lactic Acid Calcium 8.3 L Total Bilirubin 1.5 H Direct Bilirubin 0.8 H AST 425 H ALT 243 H Alkaline Phosphatase 147 H Creatine Kinase 95 Troponin I < 0.02 Total Protein 7.4 Albumin 2.9 L Lipase 35 L Urine Color Urine Appearance Urine pH Ur Specific [place] Urine Protein Urine Glucose (UA) Urine Ketones Urine Blood Urine Nitrite Urine Bilirubin Urine Urobilinogen Ur Leukocyte Esterase Urine WBC (Auto) Urine RBC (Auto) Ur Epithelial Cells Urine Bacteria Hyaline Casts Urine Mucus Influenza A (Rapid) Influenza B (Rapid) 05/17/18 05/17/18 05/18/18 21:25 21:40 00:29 WBC RBC Hgb Hct MCV MCH MCHC RDW Plt Count MPV Absolute Neuts (auto) Neutrophils % Lymphocytes % Monocytes % Eosinophils % Basophils % Nucleated RBC % PT with INR INR Sodium 138 Potassium 3.9 Chloride 105 Carbon Dioxide 18 L Anion Gap 15 BUN 34 H Creatinine 2.4 H Creat Clearance w eGFR 19.79 Random Glucose 76 Lactic Acid Calcium 7.9 L Total Bilirubin 1.2 H Direct Bilirubin AST 950 H ALT 568 H Alkaline Phosphatase 146 H Creatine Kinase Troponin I 0.02 Total Protein 7.0 Albumin 2.6 L Lipase Urine Color Luann Urine Appearance Turbid Urine pH 5.0 Ur Specific Benicia 1.017 Urine Protein 2+ H Urine Glucose (UA) Negative Urine Ketones Negative Urine Blood 1+ H Urine Nitrite Negative Urine Bilirubin Negative Urine Urobilinogen 2.0 H Ur Leukocyte Esterase 3+ H D Urine WBC (Auto) 372 Urine RBC (Auto) 26 Ur Epithelial Cells Rare Urine Bacteria Moderate Hyaline Casts 49 Urine Mucus Rare Influenza A (Rapid) Negative Influenza B (Rapid) Negative 05/18/18 00:29 WBC RBC Hgb Hct MCV MCH MCHC RDW Plt Count MPV Absolute Neuts (auto) Neutrophils % Lymphocytes % Monocytes % Eosinophils % Basophils % Nucleated RBC % PT with INR INR Sodium Potassium Chloride Carbon Dioxide Anion Gap BUN Creatinine Creat Clearance w eGFR Random Glucose Lactic Acid 8.3 H* Calcium Total Bilirubin Direct Bilirubin AST ALT Alkaline Phosphatase Creatine Kinase Troponin I Total Protein Albumin Lipase Urine Color Urine Appearance Urine pH Ur Specific [place] Urine Protein Urine Glucose (UA) Urine Ketones Urine Blood Urine Nitrite Urine Bilirubin Urine Urobilinogen Ur Leukocyte Esterase Urine WBC (Auto) Urine RBC (Auto) Ur Epithelial Cells Urine Bacteria Hyaline Casts Urine Mucus Influenza A (Rapid) Influenza B (Rapid) IMAGING: * CTAP: ([place]) GB wall thickening, RUQ sonogram, mod R pleural effusion, small L pleural effusion. Small patchy opacity of R middle lobe ? infiltrate/ atelectasis/scarring; small amount of pelvic free fluid. Presacral edema also seen. ? mild areas of colonic wall thickening may represent colitis, vs underdistension. 4.7 cm infrarenal AAA. Several small b/l renal calc may represent non-obstructing renal stones vs. renal artery calcifications. No hydronephrosis. * ABD U/S: ([place])Diffuse thickening of GB wall up to 6mm. CBD measuring 6 mm. R pleural effusion. Unremarkable R kidney. Liver 16.5 cm w/o gross mass or intrahepatic biliary dilatation. * CXR: pending final read * EKG (05/17/18 @ 20:30): Afib, HR 61, QTc 376ms, low voltage QRS waves ASSESSMENT/PLAN: 72F w/ pmhx of Parkinson's, afib, AAA, recurrent c. diff, hyperthyroidism, presented to the ED with complaints of chest pain found to be in severe sepsis 2 /2 UTI. #Acute Lactic Acidosis, w/ septic shock; multiple sources including, but not limited to UTI, pneumonia, ? biliary etiology -Pt was found to have low HR, but may be due to pt's medication regimen. According to pt's , pt only takes a few of her medications and is non- compliant with others. Need to verify with family which medications she is actually taking. Propranolol use could explain bradycardia despite being septic. Also digoxin level is low so it is possible she is non-compliant with this medication. -U/A +, CXR showed possible R infiltrates, CTAP showed GB wall thickening -IV hydration; cont NS @ 100 -IV Vanc and Meropenem given in ED -Cont with Levaquin 250 IVPB and Flagyl 500 mg IVPB Q6H #Chest pain -Initial trop neg; trend trop -EKG unremarkable for ischemic events; afib w/ HR 61. -Admit to tele #Acute Cystitis -WBC 15.5, Initial lactate 8.3 > 6.1; cont to trend lactate -U/A showed 3+ LE, 372 WBCs; indicative of UTI -IV Meropenem and IV Vanco given in ED -Cont w/ Levaquin 250 mg IVPB #GB wall thickening -Initial reads did not show signs of biliary dilatation -Cont Flagyl 500 mg IVPB for now; pt has history of recent colitis -NPO/IVf -Surg consult #Hyperkalemia; Initial K 6.0 -D50W 25 gm x2 doses, Novolin 10U given in ED -repeat K 3.9 -No evidence of EKG changes associated with hyperkalemia (peaked T waves, wide QRS, complexes, etc) #Transaminitis; Initial AST/ALT 425/243. Repeat 950/568. -CTAP and Abd U/S initial reads noted above. -Due to clinical septic presentation, acute increase in LFTs may be due to shock liver -Cont IVf -Hepatitis panel, HIV panel, GGT, AMA #? R-sided infiltrate -CXR showed possible R side infiltrate; crackles heard on R lower lung base on physical exam -Sputum cx, respiratory viral panel, blood cx, urine Legionella/S. pneumo Ag ordered -Levaquin IV given -Follow up final CXR read if true PNA, might need to broad coverage #RACHELLE; BUN/Cr 31/2.3; may be due to volume depletion -Cont IVf -Urine electrolytes, UCr, Urine urea, [place], urine electrolytes -Renal U/S #Afib Cont home meds: Diltiazem 180 PO QD #Hyperthyroidism Cont home med: Tapazole 20 BID -check TSH and free T4 if TSH is abnormal #Parkinson's Cont home med: Amantadine 100 QD #PAD; s/p L side stenting, amputation of LLE digits -Was previously on Plavix, but was held due to GI bleeding during last admission on 02/2018 and was transferred to [facility]. Will need to verify if pt is still on Plavix. #Prophylaxis -SQH #FEN -NS @ 100 -recheck BMP in AM -NPO dispo -admit to inpatient tele -full code -meds need to be reconciled Visit type - Emergency Visit Emergency Visit: Yes ED Registration Date: 05/18/18 Care time: The patient presented to the Emergency Department on the above date and was hospitalized for further evaluation of their emergent condition. - New Patient This patient is new to me today: Yes Date on this admission: 05/18/18 - Critical Care Critical Care patient: No
--- NOTE | 2018-05-18 01:28 | PN ---
Teaching Attending Note Name of Resident: Helen Yu ATTENDING PHYSICIAN STATEMENT I saw and evaluated the patient. I reviewed the resident's note and discussed the case with the resident. I agree with the resident's findings and plan as documented. SUBJECTIVE: Seen and examined; please refer to resident note for further historical details. Briefly, this is a 72 y/o female with a complex PMH presenting for CP who was found to be very mildly hypotensive with RACHELLE, transaminitis, diffuse GB wall thickening, largely elevated lactate, hyperkalemia, and a ?R-sided infiltrate with pleural effusion. She is afebrile and hemodynamically stable. She is a very poor historian. She presents to the ER with her who proved most of the history who unfortunately left before anyone with the medicine team could speak with him. CP lasted 10-15 min at rest; apparently this recurred when she just got to the ER. She is noncompliant with most of her medications at home but says she tries taking the impotant ones. She has been weak and per the ER note the brought her in after finding her slumped over in a wheelchair. In the ER, lactate returned late along with other repeat labs; patient found to be hypothermic and was placed on warmer. She was hydrated and it did go from 8 to 6. Her dig level was low. Her LFTs nearly doubled and her Cr remains elevated 1 off her baseline. She is still mentating as she was earlier which is consistent with the presentation I saw several months ago. When I encountered her a second time she actually denied CP but endorsed back pain, abdominal pain. 10 sys ROS done and negative aside from HPI PMH, PSH, Family Hx, Social Hx reviewed Medication reconciliation pending OBJECTIVE: VS, labs, imaging reviewed Cool skin; NAD, AAOx2, resting comfortably in bed, very slow to respond but will make logical statements NC AT EOMI PERRLA RRR s1/2 no mgr; was slightly hypotensive on presentation that resolved with fluids. NT ND +BS No LE edema, no JVD. Tacky mucus membranes CN2-12 wnl, no fnd Slow speech, blunted affect US prelim read shows diffuse GB thickening to 6mm with normal ducts. No gallstones seen. R-pleural effusion noted CT shows abnormal GB with wall thickening and moderate R-sided and small L- sided pleural effusion and patchy opacity of RML with questionable infiltrate vs. atelectesis vs. scarring; small amount of pelvis free fluid noted ASSESSMENT AND PLAN: Patient presents for CP, etc. found to have lactic acidosis with borderline hypotension, severe transaminitis, and RACHELLE. Furthermore, her digoxin level is low and she is slightly hypothermic. She is found on imaging to have GB wall thickening alongside persistent lung changes with ? infiltrate on the R-side. 1) Acute Lactic Acidosis, likely sepsis +/- septic shock -Her medication habits make it exceedingly difficult to determine what is causing the abberations in her vital signs, etc. Her BP was low on arrival with HR high-normal; BB could have masked response, etc. Low BP is consistent with shock liver and likely ATN (given the lack of improvement in renal function with hydration) but would have expected HR higher? Furthermore dig level is low. Call pharmacy in AM and verify what meds were filled/that she was actually taking. -Hydrated aggressively in the ER; NS continued at 100cc/hr. BP recovered and has been stable with downtrending lactate. -Discussing potential causes below 2) Acute Cystitis -Positive UA; reviewed old cx. On IV levaquin which should be sufficient. 3) GB wall thickening -Nonspecific finding but given her septic presentation and pelvic free fluid will have Dr. Pelaez consulted from [facility]. NPO in the interem on IVF; added metro to the LQ if this is potentially infected, but less likely. 4) ?R-sided infiltrate -Culture sputum, viral PCR, followup blood cx. Urine strep/legionella Ag. Incentive rosy. Covered by levaquin for now; I want to discuss the findings with radiology if they represent a true PNA or if this could be old scarring/ atelectesis changes given findings on prior. If it is indeed felt to be new may be reasonable to broaden to HAP coverage 5) Atrial Fibrillation -Was on Cardizem CD, inderal, dig. Low dig levels. Consult CV to see if she would benefit from reloading with it. HR controlled now. Compliance is ongoing issue. 6) Parkinson's -Continue amantadine; suspect component of parkinsonian dementia 7) PAD -S/P L-sided stenting, amputation of LLE digits. Was on plavix at last admit that was held 2/2 GI bleeding; she was transferred to [facility] afterwards and it is unknown if this was resumed or not. Should verify with old records. 8) Chronic Anemia -Continue home management; B12/TSH/Folate checked seval months ago. Iron studies frm past noted. Continue PO iron. 9) Hyperthyroidism -Continuing tapazole, inderal (providing stable hemodynamics and she should NOT get overnight doses). Checking TSH; if abnl will check FT4 10) Severe Malnutrition -Consider nutrition referral 11) Noncompliance -Likely 2/2 underlying medical problems; need to involve social work and . FENA -bolused in the ER then maint. @100cc/hr -PRN replete -NPO for now; can feed in AM if remains stable -As tolerated but extraordinarily limited at baseline as documented in prior encounters. Full Code
[2018-05-18] MEDS: HEPARIN NA (PORCINE) 5,000 UNITS/ML 1ML VIAL SQ SCH ×2 (01:49→11:34)
[2018-05-18] MEDS ORDERED: SODIUM CHLORIDE 1,000 ML IV SCH (04:00)
[2018-05-18 06:29] LABS: BASO % 0.2 % (0-2.0); HEMATOCRIT 27.8 % (32.4-45.2); HEMOGLOBIN 8.5 GM/dL (10.7-15.3); LYMPH % 13.2 % (8-40); MCH 28.1 pg (25.7-33.7); MCHC 30.4 g/dl (32.0-36.0); MEAN CELL VOLUME 92.3 fl (80-96); MEAN PLT VOLUME 8.1 fl (7.5-11.1); MONO % 8.9 % (3.8-10.2); NEUT % 77.7 % (42.8-82.8); PLATELET COUNT 286 K/MM3 (134-434); RBC 3.02 M/mm3 (3.60-5.2); RDW 17.2 % (11.6-15.6); WHITE BLOOD COUNT 16.5 K/mm3 (4.0-10.0)
[2018-05-18] MEDS ORDERED: ATROPINE SO4 0.4 MG/1 ML VIAL IVPUSH ONE (06:42)
[2018-05-18] MEDS ORDERED: ATROPINE SULFATE 1 MG/10 ML DISP.SYRIN ONE (06:43)
[2018-05-18] MEDS ORDERED: MIDAZOLAM HCL 2 MG/2 ML SINGLE DOSE VIAL ONE ×3 (06:58→09:34)
[2018-05-18] MEDS ORDERED: DOBUTAMINE HCL 250,000 MCG in SODIUM CHLORIDE 230 ML IV SCH (07:00)
[2018-05-18] MEDS ORDERED: DOPAMINE HCL 400,000 MCG in SODIUM CHLORIDE 240 ML IV SCH (07:00)
[2018-05-18] MEDS ORDERED: DOPAMINE 400 MG/D5W - 400,000 MCG/250 ML INFUS.BAG IVPB ONE (07:05)
[2018-05-18] MEDS ORDERED: NOREPINEPHRINE BITARTRATE 4 MG/4 ML ML IV ONE (07:23)
[2018-05-18] MEDS ORDERED: NOREPINEPHRINE BITARTRATE 8,000 MCG in DEXTROSE 5%-WATER - 492 ML IV SCH (07:30)
[2018-05-18 07:36] LABS: ALBUMIN 2.5 g/dl (3.4-5.0); ALK PHOS 141 U/L (45-117); ANION GAP 17 MMOL/L (8-16); BILIRUBIN,TOTAL 1.3 mg/dL (0.2-1); BLOOD UREA NITROGEN 38 mg/dL (7-18); CALCIUM 7.9 mg/dL (8.5-10.1); CHLORIDE 106 mmol/L (98-107); CO2 14 mmol/L (21-32); CREATININE 2.2 mg/dL (0.55-1.3); MAGNESIUM 1.9 mg/dL (1.8-2.4); POTASSIUM 5.4 mmol/L (3.5-5.1); SGOT/AST 2015 U/L (15-37); SGPT/ALT 973 U/L (13-61); SODIUM 136 mmol/L (136-145); TOT PROT 6.8 g/dl (6.4-8.2)
[2018-05-18] MEDS ORDERED: SODIUM CHLORIDE 1,000 ML IV STA (07:46)
--- NOTE | 2018-05-18 07:51 | PDOC ---
*Physical Exam - Vital Signs Last Vital Signs Temp Pulse Resp BP Pulse Ox 96.6 F L 69 22 H 85/63 L 100 05/18/18 02:37 05/18/18 07:00 05/17/18 19:40 05/18/18 07:00 05/18/18 07:00 ED Treatment Course - LABORATORY CBC & Chemistry Diagram: 05/18/18 05:20 05/18/18 06:00 - ADDITIONAL ORDERS Additional order review: Laboratory Results 05/18/18 05/18/18 05/17/18 00:29 00:29 21:40 PT with INR INR Sodium 138 Potassium 3.9 Chloride 105 Carbon Dioxide 18 L Anion Gap 15 BUN 34 H Creatinine 2.4 H Creat Clearance w eGFR 19.79 Random Glucose 76 Lactic Acid 8.3 H* Calcium 7.9 L Total Bilirubin 1.2 H Direct Bilirubin AST 950 H ALT 568 H Alkaline Phosphatase 146 H Creatine Kinase Troponin I 0.02 Total Protein 7.0 Albumin 2.6 L Lipase Urine Color Luann Urine Appearance Turbid Urine pH 5.0 Ur Specific [place] 1.017 Urine Protein 2+ H Urine Glucose (UA) Negative Urine Ketones Negative Urine Blood 1+ H Urine Nitrite Negative Urine Bilirubin Negative Urine Urobilinogen 2.0 H Ur Leukocyte Esterase 3+ H D Urine WBC (Auto) 372 Urine RBC (Auto) 26 Ur Epithelial Cells Rare Urine Bacteria Moderate Hyaline Casts 49 Urine Mucus Rare 05/17/18 05/17/18 20:13 20:13 PT with INR 20.30 H INR 1.71 H Sodium 137 Potassium 6.0 H Chloride 103 Carbon Dioxide 15 L Anion Gap 20 H BUN 31 H Creatinine 2.3 H Creat Clearance w eGFR 20.79 Random Glucose 57 L Lactic Acid Calcium 8.3 L Total Bilirubin 1.5 H Direct Bilirubin 0.8 H AST 425 H ALT 243 H Alkaline Phosphatase 147 H Creatine Kinase 95 Troponin I < 0.02 Total Protein 7.4 Albumin 2.9 L Lipase 35 L Urine Color Urine Appearance Urine pH Ur Specific [place] Urine Protein Urine Glucose (UA) Urine Ketones Urine Blood Urine Nitrite Urine Bilirubin Urine Urobilinogen Ur Leukocyte Esterase Urine WBC (Auto) Urine RBC (Auto) Ur Epithelial Cells Urine Bacteria Hyaline Casts Urine Mucus 05/17/18 20:13 RBC 3.29 L MCV 91.5 MCHC 31.0 L RDW 16.8 H MPV 8.1 D Neutrophils % 70.5 Lymphocytes % 18.8 Monocytes % 10.5 H Eosinophils % 0.0 D Basophils % 0.2 - Medications Given in the ED: ED Medications Discontinued Medications Generic Name Dose Route Start Last Admin Trade Name Pawel PRN Reason Stop Dose Admin Atropine Sulfate 0.5 mg 05/18/18 06:42 05/18/18 06:51 Atropine Injection - IVPUSH 05/18/18 06:43 0.5 mg ONCE ONE Administration Dextrose 25 gm 05/17/18 21:56 05/17/18 22:07 D50w (Vial) - IVPUSH 05/17/18 21:57 25 gm NOW ONE Administration Dextrose 25 gm 05/17/18 22:13 05/17/18 22:31 D50w (Vial) - IVPUSH 05/17/18 22:14 25 gm NOW ONE Administration Diphenhydramine HCl 25 mg 05/17/18 21:42 05/17/18 21:52 Benadryl Injection - IVPUSH 05/17/18 21:43 Not Given ONCE ONE Haloperidol 5 mg 05/17/18 21:42 05/17/18 21:52 Haldol Injection (Fast Acting) - IM 05/17/18 21:43 Not Given ONCE STA Meropenem 1 gm/ Dextrose 100 mls @ 200 mls/hr 05/17/18 23:15 05/18/18 00:07 IVPB 05/17/18 23:44 200 mls/hr ONCE ONE Administration Levofloxacin 250 mg in 50 mls @ 50 mls/hr 05/18/18 02:03 05/18/18 02:29 Levaquin 250 Mg Premixed Ivpb - IVPB 05/18/18 03:02 50 mls/hr ONCE ONE Administration Protocol Metronidazole 500 mg in 100 mls @ 100 mls/hr 05/18/18 03:15 05/18/18 03:10 Flagyl 500mg Premixed Ivpb - IVPB 100 mls/hr Q6H-IV MELANY Administration Insulin Human Regular 10 units 05/17/18 22:08 05/17/18 22:31 Novolin R Vial *For Ivpush Or Iv Drip Only* IVPUSH 05/17/18 22:09 10 units ONCE STA Administration Lactated Ringer's 1,000 ml 05/17/18 20:40 05/17/18 21:42 Lactated Ringers Solution IV 05/17/18 20:41 Not Given ONCE ONE Sodium Chloride 1,000 ml 05/17/18 21:18 05/17/18 21:42 Normal Saline - IV 05/17/18 21:19 1,000 ml ONCE ONE Administration Vancomycin HCl 1,000 mg 05/17/18 23:04 05/17/18 23:28 Vancomycin (Pre-Docked) IVPB 05/17/18 23:05 1,000 mg ONCE ONE Administration Protocol Medical Decision Making - Medical Decision Making 05/18/18 07:48 Called to patient's bedside as patient had recently become unstable. Initially on dopamine drip, paced after bradycardic episode that failed atropine. BP with MAP in 50s. Patient recently intubated with good color change and bilateral breath sounds. Leading dx in ddx at this time septic shock. IO placed, dopamine changed to levophed. Fluids pressure bagged in. Levophed tirated to map>65, last 68. Patient upgraded to ICU. *DC/Admit/Observation/Transfer Diagnosis at time of Disposition: UTI (urinary tract infection), RACHELLE (acute kidney injury), Cholecystitis - Discharge Dispostion Condition at time of disposition: Stable - Referrals - Patient Instructions - Post Discharge Activity
--- NOTE | 2018-05-18 08:35 | CONSULT ---
Consultation: REQUESTING PROVIDER: CONSULT REQUEST: We have been asked to medically evaluate this patient for admission to ICU. HISTORY OF PRESENT ILLNESS: 72 y/o F with PMHx of Parkinson's, Afib, AAA, recurrent c. diff, hyperthyroidism , Ulcerative colitis presented to the ED after being found slumped over in a wheelchair. She was recently admitted to [facility] and transferred to [facility] for evaluation by Colorectal surgery. Patient is intubated and sedated during my interview thus the hx was provided by chart review and the at bedside. Patient experienced a 15 minute episode of Chest pain which self resolved accompanied by generalized weakness and body ache prior to admission. As per EMR , patient has a hx of medication noncompliance. Earlier this AM, patient was found to be bradycardic to the 30's with an undectable BP and decline in mentation; at this time she was given Atropine 0.5mg, Pacer pads placed, intubated and sedated. IO line was placed by the ED and patient was started on levophed. Upon arrival in ICU, patient was started on Dobutamine also. Patients was made aware of the events that occurred and agreed to make the patient DNR. REVIEW OF SYSTEMS: Unable to perform PHYSICAL EXAMINATION Vital Signs - 24 hr 05/17/18 05/17/18 05/17/18 19:40 20:30 20:42 Temperature 96.9 F L Pulse Rate 64 Pulse Rate [ Apical] Respiratory 22 H Rate Blood Pressure 93/62 Blood Pressure [Right Arm] O2 Sat by Pulse 99 98 Oximetry (%) 05/17/18 05/17/18 05/18/18 21:58 22:40 02:30 Temperature 97.0 F L 96.6 F L Pulse Rate Pulse Rate [ Apical] Respiratory Rate Blood Pressure Blood Pressure 97/55 L [Right Arm] O2 Sat by Pulse Oximetry (%) 05/18/18 05/18/18 05/18/18 02:37 04:32 06:25 Temperature 96.6 F L Pulse Rate Pulse Rate [ 35 L Apical] Respiratory Rate Blood Pressure Blood Pressure 119/72 114/78 62/55 L [Right Arm] O2 Sat by Pulse 100 89 L Oximetry (%) 05/18/18 07:00 Temperature Pulse Rate Pulse Rate [ 69 Apical] Respiratory Rate Blood Pressure Blood Pressure 85/63 L [Right Arm] O2 Sat by Pulse 100 Oximetry (%) GENERAL: Sedated HEAD: NCAT EYES: PERRL EARS, NOSE, THROAT: Moist mucous membranes NECK: Crepitus LUNGS: Intubated, Diminished breath sounds at the bases, No wheezes, no crackles. HEART: Regular rate and rhythm, normal S1 and S2 without murmur ABDOMEN: Soft, not distended, + bowel sounds EXTREMITIES: No peripheral edema NEUROLOGICAL: Sedated SKIN: Warm, dry Laboratory Results - last 24 hr 05/17/18 05/17/18 05/17/18 20:13 20:13 20:13 WBC 15.5 H RBC 3.29 L Hgb 9.4 L Hct 30.2 L MCV 91.5 MCH 28.4 D MCHC 31.0 L RDW 16.8 H Plt Count 348 MPV 8.1 D Absolute Neuts (auto) 10.9 H Neutrophils % 70.5 Lymphocytes % 18.8 Monocytes % 10.5 H Eosinophils % 0.0 D Basophils % 0.2 Nucleated RBC % 0 PT with INR 20.30 H INR 1.71 H Sodium 137 Potassium 6.0 H Chloride 103 Carbon Dioxide 15 L Anion Gap 20 H BUN 31 H Creatinine 2.3 H Creat Clearance w eGFR 20.79 Random Glucose 57 L Lactic Acid Calcium 8.3 L Phosphorus Magnesium Total Bilirubin 1.5 H Direct Bilirubin 0.8 H GGT AST 425 H ALT 243 H Alkaline Phosphatase 147 H Creatine Kinase 95 Troponin I < 0.02 C-Reactive Protein Total Protein 7.4 Albumin 2.9 L Lipase 35 L TSH Urine Color Urine Appearance Urine pH Ur Specific [place] Urine Protein Urine Glucose (UA) Urine Ketones Urine Blood Urine Nitrite Urine Bilirubin Urine Urobilinogen Ur Leukocyte Esterase Urine WBC (Auto) Urine RBC (Auto) Ur Epithelial Cells Urine Bacteria Hyaline Casts Urine Mucus Digoxin Influenza A (Rapid) Influenza B (Rapid) 05/17/18 05/17/18 05/18/18 21:25 21:40 00:29 WBC RBC Hgb Hct MCV MCH MCHC RDW Plt Count MPV Absolute Neuts (auto) Neutrophils % Lymphocytes % Monocytes % Eosinophils % Basophils % Nucleated RBC % PT with INR INR Sodium 138 Potassium 3.9 Chloride 105 Carbon Dioxide 18 L Anion Gap 15 BUN 34 H Creatinine 2.4 H Creat Clearance w eGFR 19.79 Random Glucose 76 Lactic Acid Calcium 7.9 L Phosphorus Magnesium Total Bilirubin 1.2 H Direct Bilirubin GGT AST 950 H ALT 568 H Alkaline Phosphatase 146 H Creatine Kinase Troponin I 0.02 C-Reactive Protein Total Protein 7.0 Albumin 2.6 L Lipase TSH Urine Color Luann Urine Appearance Turbid Urine pH 5.0 Ur Specific [place] 1.017 Urine Protein 2+ H Urine Glucose (UA) Negative Urine Ketones Negative Urine Blood 1+ H Urine Nitrite Negative Urine Bilirubin Negative Urine Urobilinogen 2.0 H Ur Leukocyte Esterase 3+ H D Urine WBC (Auto) 372 Urine RBC (Auto) 26 Ur Epithelial Cells Rare Urine Bacteria Moderate Hyaline Casts 49 Urine Mucus Rare Digoxin Influenza A (Rapid) Negative Influenza B (Rapid) Negative 05/18/18 05/18/18 05/18/18 00:29 02:16 02:20 WBC RBC Hgb Hct MCV MCH MCHC RDW Plt Count MPV Absolute Neuts (auto) Neutrophils % Lymphocytes % Monocytes % Eosinophils % Basophils % Nucleated RBC % PT with INR INR Sodium Potassium Chloride Carbon Dioxide Anion Gap BUN Creatinine Creat Clearance w eGFR Random Glucose Lactic Acid 8.3 H* 6.1 H* Calcium Phosphorus Magnesium Total Bilirubin Direct Bilirubin GGT AST ALT Alkaline Phosphatase Creatine Kinase Troponin I C-Reactive Protein 7.9 H Total Protein Albumin Lipase TSH Urine Color Urine Appearance Urine pH Ur Specific [place] Urine Protein Urine Glucose (UA) Urine Ketones Urine Blood Urine Nitrite Urine Bilirubin Urine Urobilinogen Ur Leukocyte Esterase Urine WBC (Auto) Urine RBC (Auto) Ur Epithelial Cells Urine Bacteria Hyaline Casts Urine Mucus Digoxin 0.11 L Influenza A (Rapid) Influenza B (Rapid) 05/18/18 05/18/18 05/18/18 05:20 06:00 06:00 WBC 16.5 H RBC 3.02 L Hgb 8.5 L Hct 27.8 L MCV 92.3 MCH 28.1 MCHC 30.4 L RDW 17.2 H Plt Count 286 MPV 8.1 Absolute Neuts (auto) 12.8 H Neutrophils % 77.7 Lymphocytes % 13.2 D Monocytes % 8.9 Eosinophils % 0.0 Basophils % 0.2 Nucleated RBC % 0 PT with INR INR Sodium 136 Potassium 5.4 H Chloride 106 Carbon Dioxide 14 L Anion Gap 17 H BUN 38 H Creatinine 2.2 H Creat Clearance w eGFR 21.88 Random Glucose Lactic Acid Calcium 7.9 L Phosphorus 5.0 H Magnesium 1.9 Total Bilirubin 1.3 H Direct Bilirubin GGT 84 AST 2015 H ALT 973 H Alkaline Phosphatase 141 H Creatine Kinase Troponin I 0.05 C-Reactive Protein Total Protein 6.8 Albumin 2.5 L Lipase TSH 3.68 Urine Color Urine Appearance Urine pH Ur Specific [place] Urine Protein Urine Glucose (UA) Urine Ketones Urine Blood Urine Nitrite Urine Bilirubin Urine Urobilinogen Ur Leukocyte Esterase Urine WBC (Auto) Urine RBC (Auto) Ur Epithelial Cells Urine Bacteria Hyaline Casts Urine Mucus Digoxin Influenza A (Rapid) Influenza B (Rapid) Active Medications Amantadine HCl (Symmetrel -) 100 mg PO DAILY [facility] Last Admin: 05/18/18 10:48 Dose: Not Given Heparin Sodium (Porcine) (Heparin -) 5,000 unit SQ BID MELANY Last Admin: 05/18/18 11:34 Dose: 5,000 unit Hydrocortisone Sodium Succinate (Solu-Cortef -) 100 mg IVPUSH Q8H-IV MELANY Sodium Chloride (Normal Saline -) 1,000 mls @ 100 mls/hr IV ASDIR MELANY Last Admin: 05/18/18 04:31 Dose: 100 mls/hr Dopamine HCl 400,000 mcg/ (Sodium Chloride) 250 mls @ 4.08 mls/hr IV TITR MELANY; Protocol Last Admin: 05/18/18 07:12 Dose: 2 mcg/kg/min, 4.08 mls/hr Norepinephrine Bitartrate 8, (000 mcg/ Dextrose) 500 mls @ 6.12 mls/hr IV ASDIR MELANY; Protocol Last Admin: 05/18/18 07:15 Dose: 0.03 mcg/kg/min, 6.12 mls/hr Azithromycin (Zithromax 500mg Ivpb (Pre-Docked)) 500 mg in 250 mls @ 250 mls/ hr IVPB DAILY [facility] Last Admin: 05/18/18 11:26 Dose: 250 mls/hr Propofol (Diprivan -) 1,000,000 mcg in 100 mls @ 1.633 mls/hr IVPB TITR [facility]; Protocol Metronidazole (Flagyl 500mg Premixed Ivpb -) 500 mg in 100 mls @ 100 mls/hr IVPB Q8H-IV MELANY Meropenem 1 gm/ Dextrose 100 mls @ 2,000 mls/hr IVPB Q12H MELANY Methimazole (Tapazole -) 20 mg PO BID [facility] Last Admin: 05/18/18 10:52 Dose: Not Given ASSESSMENT/PLAN: 72 y/o F with PMHx of Parkinson's, Afib, AAA, recurrent c. diff, hyperthyroidism , Ulcerative colitis presented to the ED after being found slumped over in a wheelchair, found to be bradycardic to the 30's with an undectable BP and decline in mentation and will be monitored in ICU s/p Intubation and being started on pressors. #Neuro Sedated Hx of Parkinson's Disease -Continue Propofol Drip -Continue home does Amantadine #Cardio Hypotensive, bradycardic Hx of Afib, AAA -Digoxin level 0.11 -EKG: UNDETERMINED RHYTHM ? ATRIAL FIBRILLATION WITH SLOW VENTRICULAR RESPONSE, VR 32, QTc 362 -Dr. Castillo Consulted, Appreciate rec's; Hold home AVN blocking regimen -Echo pending -Central line placed for CVP monitoring; Goal 10-12 -Continue NS @ 100 mls/hr #Pulm S/P Intubation -Vent settings: 14/450/100%/+5 -Supplemental O2 to maintain SpO2 >90% -Recheck ABG #GI Metabolic Acidosis Transaminitis, Likely Shock liver due to Sepsis Hx of recurrent c. diff, Ulcerative colitis -Hepatitis panel pending -Abd US: Right pleural effusion. Thick-walled gallbladder without evidence of cholelithiasis or additional signs of acute cholecystitis. -General Surgery (Dr. Pelaez), GI (Dr. Glass) Consulted, Appreciate rec's -Trend LFTs #Renal RACHELLE Hyperkalemia, Hyperphosphatemia -Maintain Liang Catheter -Urine sodium, Electrolytes, -Continue NS @ 100 mls/hr -Continue to monitor Urine Output, I&Os -Dr. Manuel Consulted -Aida Repleted #ID Septic Shock likely due to UTI Lactic Acidosis, trending up Elevated CRP, ESR likely acute phase reactant -Hypothermia on Admission -Leukocytyosis -UA: 2+ Protein, 1+ blood, Negative Nitrite, 3+ LE, 372 WBC -Influenza negative -HIV, Blood and Urine Cx, Urine for legion[place] pending -CT A/P without contrast: Moderate right and small left pleural effusion with bibasal consolidation/atelectasis as well as atelectatic changes versus infiltrates in the right middle lobe consistent with pneumonia. Thickening of the gallbladder wall with haziness of the surrounding fat suspicious for acute cholecystitis. -Monitor Vital signs Q4H -Continue NS @ 100 mls/hr, Hydrocortisone 100mg Q8H -Metronidazole 500mg Q8H, Meropenem 1gm Q12H, Azithromycin 500mg Daily (started on 05/18) -Dopamine gtt, Norepinephrine gtt to maintain MAP > 65 -Dr. Todd Consulted, Appreciate rec's #Heme Normocytic, Normochromic Anemia -H&H Trending down -Continue to monitor for signs of active bleeding -Will Check FOBT #Endo Hx of hyperthyroidism -TSH 3.68, Would repeat after acute process resolves -Continue home does Methimazole #FEN -Continue NS @ 100 mls/hr -Replete Lytes PRN -NPO #PPx -DVT: Heparin BID Code Status: DNR Dispo: We will continue to follow the patient. Thank you for this consultative opportunity. Visit type - Emergency Visit Emergency Visit: Yes ED Registration Date: 05/18/18 Care time: The patient presented to the Emergency Department on the above date and was hospitalized for further evaluation of their emergent condition. - New Patient This patient is new to me today: Yes Date on this admission: 05/18/18 - Critical Care Critical Care patient: Yes Total Critical Care Time (in minutes): 36 Critical Care Statement: The care of this patient involved high complexity decision making to prevent further life threatening deterioration of the patient 's condition and/or to evaluate & treat vital organ system(s) failure or risk of failure.
[2018-05-18] MEDS ORDERED: DOBUTAMINE 250 MG/D5W - 250,000 MCG/250 ML INFUS.BAG ONE (08:48)
[2018-05-18 08:59] LABS: GLUCOSE,RANDOM 14 mg/dL (74-106)
--- NOTE | 2018-05-18 09:13 | CON.CARD ---
Consult Consult Specialty:: cardio - History of Present Illness Chief Complaint: weakness History of Present Illness: 72 F here with generalized weakness. per ER and admit notes: pt reported CP, back pain, generalized body pain on presentation. reported incr weakness of late, non-adherence to certain meds. found her slumped over in wheelchair. notable findings: mildly hypothermic (96 deg) bp to 60s-->started on levophed and dopamine slow afib to 30s--transcutaneous pacer pads put on in icu hypoxic to 89 on RA--intubated RACHELLE (30s/2.3). +lactic acidosis. hypoglycemic in ICU (FSG 14) transaminitis (900s/500s) troponins neg x 3. dig 0.1 UA dirty, cultures pending currently intubated, not communicative. on dobut 5mcg, dopa 20 mcg, norepi 15 mcg. rhythm is sinus in 70s, rarely transcutaneous pacing at 70 bpm she has had multiple hospital admissions for colitis, recently here again with diarrhea and rectal bleeding. during that admit: CT scan w/ persistent colitis of transverse, descending, and sigmoid colon. All infectious work up negative. attempted colonoscopy, unable to pass pediatric colonoscope past resctosigmoid due to significant narrowing and nodular thickening. Pathology neg for malignancy, revealed chronic active colitis. Rectal bleeding improved, suspect 2 /2 colitis, true GIB unlikely, hg/hct stable and at baseline. Pt evaluated by general surgery here who recommended transfer to a colorectal surgeon--[facility]. 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 [employer] History of Recent Travel: No Home Medications - Allergies Allergies/Adverse Reactions: Allergies Allergy/AdvReac Type Severity Reaction Status Date / Time aspirin Allergy Verified 05/17/18 19:41 Penicillins Allergy Verified 05/17/18 19:41 - Home Medications Home Medications: Ambulatory Orders Amantadine HCl [Amantadine] 100 mg PO DAILY 11/25/17 Carbidopa/Levodopa [Rytary ER 36.25 mg-145 mg Cap] 1 each PO BID 11/25/17 Clopidogrel Bisulfate [Plavix] 75 mg PO DAILY 11/25/17 Diltiazem Cd [Cardizem Cd -] 180 mg PO DAILY 11/25/17 Lactobacillus Acidophilus [Acidophilus] 1 each PO DAILY 11/25/17 Potassium Chloride [K-Dur -] 20 meq PO DAILY 11/25/17 Propranolol HCl 60 mg PO TID 11/25/17 Sodium,Potassium Phosphates [Phos-Nak Packet] 1 each PO TID 11/25/17 Amino Acids/Protein Hydrolys [Prosource No Carb Liquid Pkt] 30 ml PO BID@0800, 1730 packet 12/01/17 Methimazole [Tapazole -] 20 mg PO Q12H tablet 12/01/17 Digoxin [Lanoxin -] 0.125 mg PO DAILY 12/18/17 Gabapentin [Neurontin -] 100 mg PO Q12H 12/18/17 Ferrous Sulfate 325 mg PO DAILY 02/08/18 Potassium Chloride 10 meq PO DAILY 02/08/18 Ascorbic Acid [Vitamin C -] 500 mg PO DAILY 05/17/18 Family Disease History - Family Disease History Family History: Unable to Obtain Review of Systems Unable to obtain ROS, reason: not responsive Vital Signs: Vital Signs Temperature 96.6 F L 05/18/18 02:37 Pulse Rate 72 05/18/18 08:10 Respiratory Rate 23 H 05/18/18 08:15 Blood Pressure 85/63 L 05/18/18 07:00 O2 Sat by Pulse Oximetry (%) 98 05/18/18 08:10 Constitutional: Yes: Well Nourished, No Distress Eyes: No: Sclera Icterus HENT: No: Nasal Congestion Neck: No: Decreased ROM Respiratory: Yes: CTA Bilaterally (anteriorly), On Nasal O2. No: Rales, Wheezes Gastrointestinal: Yes: Normal Bowel Sounds. No: Distention, Hepatomegaly, Palpable Mass, Tenderness Cardiovascular: Yes: Regular Rate and Rhythm JVD: No Carotid Bruit: No PMI: Non-Displaced Heart Sounds: Yes: S1, S2. No: Gallop Murmur: No: Systolic Murmur, Diastolic Murmur Musculoskeletal: Yes: Other (No kyphosis) Extremities: No: Cold, Cyanosis Edema: No Peripheral Pulses: 2+ Left Carotid, 2+ Right Carotid, 2+ Left Doralis Pedis, 2+ Right Dorsalis Pedis Integumentary: No: Jaundice Neurological: No: Alert, Oriented (x3) Psychiatric: No: Agitated - Other Data Labs, Other Data: CBC, BMP 05/18/18 05:20 05/18/18 06:00 INR, PTT INR 1.71 (0.83-1.09) H 05/17/18 20:13 Troponin, BNP 05/17/18 05/18/18 05/18/18 20:13 00:29 06:00 Troponin I < 0.02 0.02 0.05 Troponin, BNP 05/17/18 05/18/18 05/18/18 20:13 00:29 06:00 Troponin I < 0.02 0.02 0.05 Laboratory Tests 05/17/18 05/18/18 05/18/18 20:13 00:29 00:29 WBC Hgb Plt Count Sodium Potassium Carbon Dioxide BUN Creatinine Random Glucose Lactic Acid 8.3 H* Total Bilirubin 1.2 H AST 950 H ALT 568 H Alkaline Phosphatase 146 H Troponin I < 0.02 0.02 Albumin 2.6 L 05/18/18 05/18/18 05:20 06:00 WBC 16.5 H Hgb 8.5 L Plt Count 286 Sodium 136 Potassium 5.4 H Carbon Dioxide 14 L BUN 38 H Creatinine 2.2 H Random Glucose 14 L* Lactic Acid Total Bilirubin AST ALT Alkaline Phosphatase Troponin I 0.05 Albumin Laboratory Tests 05/18/18 06:00 TSH 3.68 Assessment/Plan stress 03/2017: baseline afib, no ischemic changes. inferior artifact. no ischemia/infarct. nl ef. Echo 04/2017: nl lv/rv, mild lima, mod mr, mild-mod tr, rvsp 30-40 Echo 10/2016: nl lv/rv, mod mr, mild tr. CXR #1: weak inspiration, ? very early R infiltrate CXR #2: progressive congestive changes and ? R infiltrate. ECG 05/18 (6:45 am): sinus azar 32 bpm, NSTWAs, baseline wander artifact excessive ECG 05/17 (20:30): AFL 4:1 conduction, NSTWAs unchanged vs prior 03/10 tele: NSR, sinus azar to 29 bpm; periodic pacing via transcutaneous pads--no non-capture seen urosepsis: -dirty UA, cultures pending -septic shock with hypotension, hi lactate, multi-organ system failure -bradycardia in this setting likely due to sepsis with underlying SN dysfunction possible as well -intubated, supportive care per ICU -cont dobutamine, dopamine, levophed--titrate dopa for chronotropic effects as well. plan d/w'd ICU resident and attending sinus bradycardia: -likely sec to overwhelming sepsis, possibly underyling SN dysfunction -TSH normal -hold home AVN blocking regimen -transcutaneous pacing as doing--good capture confirmed by team as per d/w dr louis and residents (tele suggests same) -cont dopamine, dobutamine as doing--plan to add phenylephrine or isoproterenol if not responding -ICU team states goals of care clarified: pt made DNR and he stated he wants no invasive aggressive therapy other than central line for IV access afib - was on propranolol 60 mg TID, diltiazem 180 mg, digoxin with rate controlled - now held for bradycardia, as above - not on AC due to risk of falls, cont plavix per prior tx plan RACHELLE: - sec to urosepsis - IVF as doing transaminitis: - sec to sepsis vs shock liver - trend labs - BP support, tx of underlying infection--per crit care Hyperthyroidism - on tapazole, TSH normal - manage per primary team htn - hold meds as pt currently in septic shock pvd/AAA/+ tobacco - on plavix outpatient, not on statin, will defer to outpatient md's. - smoking cessation counselled, CV benefits reviewed estimated time spent in data review, pt exam, and formulating plan of mgmt for potentially life threatening problems = 38 min
[2018-05-18] MEDS ORDERED: HYDROCORTISONE SOD SUCCINATE 100 MG/2 ML VIAL IVPUSH SCH ×2 (09:15→18:00)
[2018-05-18] MEDS ORDERED: CALCIUM GLUCONATE 10% - 1,000 MG/10 ML VIAL IVPB ONE (09:30)
[2018-05-18] MEDS ORDERED: SODIUM BICARBONATE 8.4% 50 MEQ/50 ML DISP.SYRIN IVPUSH ONE (09:30)
--- NOTE | 2018-05-18 09:37 | EKG ---
Test Reason : Blood Pressure : / mmHG Vent. Rate : 032 BPM Atrial Rate : 032 BPM P-R Int : 204 ms QRS Dur : 074 ms QT Int : 496 ms P-R-T Axes : -30 012 -85 degrees QTc Int : 362 ms UNDETERMINED RHYTHM ? ATRIAL FIBRILLATION WITH SLOW VENTRICULAR RESPONSE ABNORMAL ECG WHEN COMPARED WITH ECG OF 07-MAR-2018 10:15, VENT. RATE HAS DECREASED BY 71 BPM T WAVE VARIATION Confirmed by CRISTOBAL HERNANDEZ, ADELIA ([id number]) on 05/18/2018 9:37:32 AM Referred By: Confirmed By:ADELIA JAIN MD
[2018-05-18 09:43] LABS: ARTERIAL BLOOD GAS PCO2 35.6 mmHg (35-45)
--- NOTE | 2018-05-18 09:43 | EKG ---
Test Reason : Blood Pressure : / mmHG Vent. Rate : 061 BPM Atrial Rate : 244 BPM P-R Int : 000 ms QRS Dur : 084 ms QT Int : 374 ms P-R-T Axes : 000 030 175 degrees QTc Int : 376 ms ATRIAL FLUTTER WITH VARIABLE A-V BLOCK NONSPECIFIC T WAVE ABNORMALITY ABNORMAL ECG WHEN COMPARED WITH ECG OF 07-MAR-2018 10:15, ATRIAL FLUTTER HAS REPLACED ATRIAL FIBRILLATION VENT. RATE HAS DECREASED BY 42 BPM T WAVE VARIATION Confirmed by ADELIA JAIN MD ([id number]) on 05/18/2018 9:42:38 AM Referred By: Confirmed By:ADELIA JAIN MD
[2018-05-18 09:55] LABS: ARTERIAL BLD GAS O2 SATURATION 71.8 % (90-98.9); ARTERIAL BLOOD GAS BASE EXCESS -13.3 meq/l (-2-2)
[2018-05-18] MEDS ORDERED: METHIMAZOLE 10 MG TABLET (FP) PO SCH (10:00)
[2018-05-18] MEDS ORDERED: AZITHROMYCIN IVPB 500 MG/250 ML BAG IVPB SCH (10:00)
[2018-05-18] MEDS ORDERED: AMANTADINE HCL 100 MG TABLET PO SCH (10:00)
[2018-05-18] MEDS ORDERED: CLOPIDOGREL BISULFATE 75 MG TABLET (FP) PO SCH (10:00)
[2018-05-18] MEDS ORDERED: PATIENT'S OWN MEDICATION (NON-FORMULARY) (Carbidopa/Levodopa [Rytary Er 36.25 Mg-145 Mg Ca PO SCH (10:00)
[2018-05-18] MEDS ORDERED: MEROPENEM 500 MG in DEXTROSE 5%-WATER 100 ML IVPB SCH ×2 (10:00→22:00)
--- NOTE | 2018-05-18 10:53 | PN ---
Physical Exam: SUBJECTIVE: Patient seen and examined intubated fio2 100, peep 10. still not maintaing saturation. on dopamin, nor epinephrine. bradycardia with pacer pads on OBJECTIVE: Vital Signs Period Temp Pulse Resp BP Sys/Watkins Pulse Ox Last 24 Hr 96.6 F-97.0 F 35-72 22-23 62-120/55-78 89-100 GENERAL: intubated LUNGS: bilateral coarse breath sounds.. HEART: s1s2 normal ABDOMEN: Soft, nondistended, EXTREMITIES: cold SKIN: cold Laboratory Results - last 24 hr 05/17/18 05/17/18 05/17/18 20:13 20:13 20:13 WBC 15.5 H RBC 3.29 L Hgb 9.4 L Hct 30.2 L MCV 91.5 MCH 28.4 D MCHC 31.0 L RDW 16.8 H Plt Count 348 MPV 8.1 D Absolute Neuts (auto) 10.9 H Neutrophils % 70.5 Lymphocytes % 18.8 Monocytes % 10.5 H Eosinophils % 0.0 D Basophils % 0.2 Nucleated RBC % 0 PT with INR 20.30 H INR 1.71 H Anticoagulation Therapy Puncture Site ABG pH ABG pCO2 at Pt Temp ABG pO2 at Pt Temp ABG HCO3 ABG O2 Sat (Measured) ABG O2 Content ABG Base Excess Carlos Test O2 Delivery Device Oxygen Flow Rate Vent Mode Vent Rate Mechanical Rate PEEP Pressure Support Vent Sodium 137 Potassium 6.0 H Chloride 103 Carbon Dioxide 15 L Anion Gap 20 H BUN 31 H Creatinine 2.3 H Creat Clearance w eGFR 20.79 POC Glucometer Random Glucose 57 L Lactic Acid Calcium 8.3 L Phosphorus Magnesium Total Bilirubin 1.5 H Direct Bilirubin 0.8 H GGT AST 425 H ALT 243 H Alkaline Phosphatase 147 H Creatine Kinase 95 Troponin I < 0.02 C-Reactive Protein Total Protein 7.4 Albumin 2.9 L Lipase 35 L TSH Urine Color Urine Appearance Urine pH Ur Specific [place] Urine Protein Urine Glucose (UA) Urine Ketones Urine Blood Urine Nitrite Urine Bilirubin Urine Urobilinogen Ur Leukocyte Esterase Urine WBC (Auto) Urine RBC (Auto) Ur Epithelial Cells Urine Bacteria Hyaline Casts Urine Mucus Digoxin Influenza A (Rapid) Influenza B (Rapid) 05/17/18 05/17/18 05/18/18 21:25 21:40 00:29 WBC RBC Hgb Hct MCV MCH MCHC RDW Plt Count MPV Absolute Neuts (auto) Neutrophils % Lymphocytes % Monocytes % Eosinophils % Basophils % Nucleated RBC % PT with INR INR Anticoagulation Therapy Puncture Site ABG pH ABG pCO2 at Pt Temp ABG pO2 at Pt Temp ABG HCO3 ABG O2 Sat (Measured) ABG O2 Content ABG Base Excess Carlos Test O2 Delivery Device Oxygen Flow Rate Vent Mode Vent Rate Mechanical Rate PEEP Pressure Support Vent Sodium 138 Potassium 3.9 Chloride 105 Carbon Dioxide 18 L Anion Gap 15 BUN 34 H Creatinine 2.4 H Creat Clearance w eGFR 19.79 POC Glucometer Random Glucose 76 Lactic Acid Calcium 7.9 L Phosphorus Magnesium Total Bilirubin 1.2 H Direct Bilirubin GGT AST 950 H ALT 568 H Alkaline Phosphatase 146 H Creatine Kinase Troponin I 0.02 C-Reactive Protein Total Protein 7.0 Albumin 2.6 L Lipase TSH Urine Color Luann Urine Appearance Turbid Urine pH 5.0 Ur Specific [place] 1.017 Urine Protein 2+ H Urine Glucose (UA) Negative Urine Ketones Negative Urine Blood 1+ H Urine Nitrite Negative Urine Bilirubin Negative Urine Urobilinogen 2.0 H Ur Leukocyte Esterase 3+ H D Urine WBC (Auto) 372 Urine RBC (Auto) 26 Ur Epithelial Cells Rare Urine Bacteria Moderate Hyaline Casts 49 Urine Mucus Rare Digoxin Influenza A (Rapid) Negative Influenza B (Rapid) Negative 05/18/18 05/18/18 05/18/18 00:29 02:16 02:20 WBC RBC Hgb Hct MCV MCH MCHC RDW Plt Count MPV Absolute Neuts (auto) Neutrophils % Lymphocytes % Monocytes % Eosinophils % Basophils % Nucleated RBC % PT with INR INR Anticoagulation Therapy Puncture Site ABG pH ABG pCO2 at Pt Temp ABG pO2 at Pt Temp ABG HCO3 ABG O2 Sat (Measured) ABG O2 Content ABG Base Excess Carlos Test O2 Delivery Device Oxygen Flow Rate Vent Mode Vent Rate Mechanical Rate PEEP Pressure Support Vent Sodium Potassium Chloride Carbon Dioxide Anion Gap BUN Creatinine Creat Clearance w eGFR POC Glucometer Random Glucose Lactic Acid 8.3 H* 6.1 H* Calcium Phosphorus Magnesium Total Bilirubin Direct Bilirubin GGT AST ALT Alkaline Phosphatase Creatine Kinase Troponin I C-Reactive Protein 7.9 H Total Protein Albumin Lipase TSH Urine Color Urine Appearance Urine pH Ur Specific [place] Urine Protein Urine Glucose (UA) Urine Ketones Urine Blood Urine Nitrite Urine Bilirubin Urine Urobilinogen Ur Leukocyte Esterase Urine WBC (Auto) Urine RBC (Auto) Ur Epithelial Cells Urine Bacteria Hyaline Casts Urine Mucus Digoxin 0.11 L Influenza A (Rapid) Influenza B (Rapid) 05/18/18 05/18/18 05/18/18 05:20 06:00 06:00 WBC 16.5 H RBC 3.02 L Hgb 8.5 L Hct 27.8 L MCV 92.3 MCH 28.1 MCHC 30.4 L RDW 17.2 H Plt Count 286 MPV 8.1 Absolute Neuts (auto) 12.8 H Neutrophils % 77.7 Lymphocytes % 13.2 D Monocytes % 8.9 Eosinophils % 0.0 Basophils % 0.2 Nucleated RBC % 0 PT with INR INR Anticoagulation Therapy Puncture Site ABG pH ABG pCO2 at Pt Temp ABG pO2 at Pt Temp ABG HCO3 ABG O2 Sat (Measured) ABG O2 Content ABG Base Excess Carlos Test O2 Delivery Device Oxygen Flow Rate Vent Mode Vent Rate Mechanical Rate PEEP Pressure Support Vent Sodium 136 Potassium 5.4 H Chloride 106 Carbon Dioxide 14 L Anion Gap 17 H BUN 38 H Creatinine 2.2 H Creat Clearance w eGFR 21.88 POC Glucometer Random Glucose 14 L* Lactic Acid Calcium 7.9 L Phosphorus 5.0 H Magnesium 1.9 Total Bilirubin 1.3 H Direct Bilirubin GGT 84 AST 2015 H ALT 973 H Alkaline Phosphatase 141 H Creatine Kinase Troponin I 0.05 C-Reactive Protein Total Protein 6.8 Albumin 2.5 L Lipase TSH 3.68 Urine Color Urine Appearance Urine pH Ur Specific [place] Urine Protein Urine Glucose (UA) Urine Ketones Urine Blood Urine Nitrite Urine Bilirubin Urine Urobilinogen Ur Leukocyte Esterase Urine WBC (Auto) Urine RBC (Auto) Ur Epithelial Cells Urine Bacteria Hyaline Casts Urine Mucus Digoxin Influenza A (Rapid) Influenza B (Rapid) 05/18/18 05/18/18 05/18/18 08:47 08:52 09:07 WBC RBC Hgb Hct MCV MCH MCHC RDW Plt Count MPV Absolute Neuts (auto) Neutrophils % Lymphocytes % Monocytes % Eosinophils % Basophils % Nucleated RBC % PT with INR INR Anticoagulation Therapy Puncture Site ABG pH ABG pCO2 at Pt Temp ABG pO2 at Pt Temp ABG HCO3 ABG O2 Sat (Measured) ABG O2 Content ABG Base Excess Carlos Test O2 Delivery Device Oxygen Flow Rate Vent Mode Vent Rate Mechanical Rate PEEP Pressure Support Vent Sodium Potassium Chloride Carbon Dioxide Anion Gap BUN Creatinine Creat Clearance w eGFR POC Glucometer < 10 219 157 Random Glucose Lactic Acid Calcium Phosphorus Magnesium Total Bilirubin Direct Bilirubin GGT AST ALT Alkaline Phosphatase Creatine Kinase Troponin I C-Reactive Protein Total Protein Albumin Lipase TSH Urine Color Urine Appearance Urine pH Ur Specific [place] Urine Protein Urine Glucose (UA) Urine Ketones Urine Blood Urine Nitrite Urine Bilirubin Urine Urobilinogen Ur Leukocyte Esterase Urine WBC (Auto) Urine RBC (Auto) Ur Epithelial Cells Urine Bacteria Hyaline Casts Urine Mucus Digoxin Influenza A (Rapid) Influenza B (Rapid) 05/18/18 09:12 WBC RBC Hgb Hct MCV MCH MCHC RDW Plt Count MPV Absolute Neuts (auto) Neutrophils % Lymphocytes % Monocytes % Eosinophils % Basophils % Nucleated RBC % PT with INR INR Anticoagulation Therapy No Result Required. Puncture Site Left radial ABG pH 7.20 L* ABG pCO2 at Pt Temp 35.6 ABG pO2 at Pt Temp 56.0 L ABG HCO3 13.4 L* ABG O2 Sat (Measured) 71.8 L* ABG O2 Content 7.8 L* ABG Base Excess -13.3 L* Carlos Test No Result Required. O2 Delivery Device No Result Required. Oxygen Flow Rate 100 Vent Mode No Result Required. Vent Rate No Result Required. Mechanical Rate No Result Required. PEEP 5.0 Pressure Support Vent No Result Required. Sodium Potassium Chloride Carbon Dioxide Anion Gap BUN Creatinine Creat Clearance w eGFR POC Glucometer Random Glucose Lactic Acid Calcium Phosphorus Magnesium Total Bilirubin Direct Bilirubin GGT AST ALT Alkaline Phosphatase Creatine Kinase Troponin I C-Reactive Protein Total Protein Albumin Lipase TSH Urine Color Urine Appearance Urine pH Ur Specific [place] Urine Protein Urine Glucose (UA) Urine Ketones Urine Blood Urine Nitrite Urine Bilirubin Urine Urobilinogen Ur Leukocyte Esterase Urine WBC (Auto) Urine RBC (Auto) Ur Epithelial Cells Urine Bacteria Hyaline Casts Urine Mucus Digoxin Influenza A (Rapid) Influenza B (Rapid) Active Medications Generic Name Dose Route Start Last Admin Trade Name Freq PRN Reason Stop Dose Admin Amantadine HCl 100 mg 05/18/18 10:00 05/18/18 10:48 Symmetrel - PO Not Given DAILY MELANY Heparin Sodium (Porcine) 5,000 unit 05/18/18 01:30 05/18/18 01:49 Heparin - SQ 5,000 unit BID MELANY Administration Hydrocortisone Sodium Succinate 50 mg 05/18/18 09:15 Solu-Cortef - IVPUSH Q6H-IV MELANY Sodium Chloride 1,000 mls @ 100 mls/hr 05/18/18 04:00 05/18/18 04:31 Normal Saline - IV 100 mls/hr ASDIR MELANY Administration Dopamine HCl 400,000 mcg/ 250 mls @ 4.08 mls/hr 05/18/18 07:00 05/18/18 07:12 Sodium Chloride IV 2 mcg/kg/min TITR MELANY 4.08 mls/hr Administration Protocol 2 MCG/KG/MIN Norepinephrine Bitartrate 8, 500 mls @ 6.12 mls/hr 05/18/18 07:30 05/18/18 07 :15 000 mcg/ Dextrose IV 0.03 mcg/kg/min ASDIR MELANY 6.12 mls/hr Administration Protocol 0.03 MCG/KG/MIN Meropenem 500 mg/ Dextrose 100 mls @ 200 mls/hr 05/18/18 22:00 IVPB Q12H MELANY Azithromycin 500 mg in 250 mls @ 250 mls/hr 05/18/18 10:00 Zithromax 500mg Ivpb (Pre-Docked) IVPB DAILY MELANY Meropenem 500 mg/ Dextrose 100 mls @ 200 mls/hr 05/18/18 10:00 05/18/18 10:48 IVPB 05/18/18 22:29 200 mls/hr BID MELANY Administration Methimazole 20 mg 05/18/18 10:00 05/18/18 10:52 Tapazole - PO Not Given BID MELANY ASSESSMENT/PLAN: Acute Respiratory Failure Septic Shock AFib AAA bradycardia Recurrent C. diff Hyperthyroidism Lactic acidosis R/O Septic Shock Transaminitis R/O PNA RACHELLE AFib Colitis Plan Dopamine and NE Monitor vitals monitor intake out/put antibiotics as per id Check ABG Follow lactic acid trend ECHO hold av esha blocking drugs GI follow up Nephrology follow up cardiology follwo up Follow cultures IVF VTE prophylaxis Hydrocortisone Requires ICU monitoring Visit type - Emergency Visit Emergency Visit: Yes ED Registration Date: 05/18/18 Care time: The patient presented to the Emergency Department on the above date and was hospitalized for further evaluation of their emergent condition. - New Patient This patient is new to me today: Yes Date on this admission: 05/18/18 - Critical Care Critical Care patient: Yes Total Critical Care Time (in minutes): 45 Critical Care Statement: The care of this patient involved high complexity decision making to prevent further life threatening deterioration of the patient 's condition and/or to evaluate & treat vital organ system(s) failure or risk of failure. - Discharge Referral Referred to [facility] No
[2018-05-18] MEDS ORDERED: PROPOFOL 1,000,000 MCG/100 ML VIAL ONE (10:54)
--- NOTE | 2018-05-18 10:55 | CONSULT ---
Consult - text type - Consultation Consultation Note: Renal Consult for RACHELLE This is a 72 year old woman with hx of COPD, AAA, Hyperthyroidism, Afib, Current smoker, Hx of colitis who presented with generalized weakness and CP and found to have Sepsis in setting of suspected PNA + Cystitis with RACHELLE. Baseline Cr 0.6-0.9. Pt seen and examined in the ICU. On vent, off sedation and is awake. was at the bedside as well. Currently on 3 pressers and IVF. Has archibald with some yellow urine. On external pacemaker. Not able to provide history. Pt was seen by our service on prior admissions for hypokalemia and hypomagnesemia from GI losses. PMHx: as above Allergies: NKDA Family Hx: NC Social Hx: No T/A/D ROS: unable to obtain because of clinical status Home Medications Medication Instructions Recorded Amantadine HCl [Amantadine] 100 mg PO DAILY 11/25/17 Carbidopa/Levodopa [Rytary ER 1 each PO BID 11/25/17 36.25 mg-145 mg Cap] Clopidogrel Bisulfate [Plavix] 75 mg PO DAILY 11/25/17 Diltiazem Cd [Cardizem Cd -] 180 mg PO DAILY 11/25/17 Lactobacillus Acidophilus 1 each PO DAILY 11/25/17 [Acidophilus] Potassium Chloride [K-Dur -] 20 meq PO DAILY 11/25/17 Propranolol HCl 60 mg PO TID 11/25/17 Sodium,Potassium Phosphates 1 each PO TID 11/25/17 [Phos-Nak Packet] Amino Acids/Protein Hydrolys 30 ml PO BID@0800,1730 packet 12/01/17 [Prosource No Carb Liquid Pkt] Methimazole [Tapazole -] 20 mg PO Q12H tablet 12/01/17 Digoxin [Lanoxin -] 0.125 mg PO DAILY 12/18/17 Gabapentin [Neurontin -] 100 mg PO Q12H 12/18/17 Ferrous Sulfate 325 mg PO DAILY 02/08/18 Potassium Chloride 10 meq PO DAILY 02/08/18 Ascorbic Acid [Vitamin C -] 500 mg PO DAILY 05/17/18 Vital Signs Temperature 96.6 F L 05/18/18 02:37 Pulse Rate 72 05/18/18 08:10 Respiratory Rate 23 H 05/18/18 08:15 Blood Pressure 120/74 05/18/18 10:22 O2 Sat by Pulse Oximetry (%) 98 05/18/18 08:10 Intake & Output 05/15/18 05/16/18 05/17/18 05/18/18 23:59 23:59 23:59 23:59 Weight 54.431 kg On Vent, No distress ET Tube in place neck supple, no JVD RRR, no M/R Dec BS, no overt rales soft NT/ND, no rebound or guarding No LE edema, clubbing or cyanosis Archibald in place CBC, BMP 05/18/18 05:20 05/18/18 06:00 Current Medications Amantadine HCl (Symmetrel -) 100 mg PO DAILY MELANY Last Admin: 05/18/18 10:48 Dose: Not Given Heparin Sodium (Porcine) (Heparin -) 5,000 unit SQ BID MELANY Last Admin: 05/18/18 01:49 Dose: 5,000 unit Hydrocortisone Sodium Succinate (Solu-Cortef -) 50 mg IVPUSH Q6H-IV MELANY Sodium Chloride (Normal Saline -) 1,000 mls @ 100 mls/hr IV ASDIR MELANY Last Admin: 05/18/18 04:31 Dose: 100 mls/hr Dopamine HCl 400,000 mcg/ (Sodium Chloride) 250 mls @ 4.08 mls/hr IV TITR MELANY; Protocol Last Admin: 05/18/18 07:12 Dose: 2 mcg/kg/min, 4.08 mls/hr Norepinephrine Bitartrate 8, (000 mcg/ Dextrose) 500 mls @ 6.12 mls/hr IV ASDIR MELANY; Protocol Last Admin: 05/18/18 07:15 Dose: 0.03 mcg/kg/min, 6.12 mls/hr Meropenem 500 mg/ Dextrose 100 mls @ 200 mls/hr IVPB Q12H MELANY Azithromycin (Zithromax 500mg Ivpb (Pre-Docked)) 500 mg in 250 mls @ 250 mls/ hr IVPB DAILY MELANY Meropenem 500 mg/ Dextrose 100 mls @ 200 mls/hr IVPB BID MELANY Stop: 05/18/18 22:29 Last Admin: 05/18/18 10:48 Dose: 200 mls/hr Methimazole (Tapazole -) 20 mg PO BID MELANY Last Admin: 05/18/18 10:52 Dose: Not Given 72 year old woman with hx of COPD, AAA, Hyperthyroidism, Afib, Current smoker, Hx of colitis who presented with generalized weakness and CP and found to have Sepsis in setting of suspected PNA + Cystitis with RACHELLE. #RACHELLE likely renal hypoprofusion in setting of sepsis #Sepsis from PNA vs. Cysitis vs. Acute Cholecystitis #Afib with slow ventricular response #Hyperthyrodism #Hyperkalemia #Hx of COPD #Anion gap metabolic acidosis/lactic acidosis Continue hemodynamic support as per ICU keep MAP > 65, CVP 10-12 Continue isotononic saline for now Consider central line insertion for CVP monitoring Continue vasopressers and IV steroids as per ICU no acute need for [employer] at this time but will need to monitor K and acid/base status closely if pH persistently < 7.2 can consider addition of bicarbonate Continue Abx as per ID Supportive care Dose all meds for CrCl < 15 given RACHELLE Would monitor BMP Q12h Thank you Xu Manuel DO
[2018-05-18] MEDS ORDERED: PROPOFOL 1,000,000 MCG/100 ML VIAL IVPB SCH (11:45)
[2018-05-18] MEDS ORDERED: HYDROCORTISONE SOD SUCCINATE 100 MG/2 ML VIAL IVPB ONE (12:22)
--- NOTE | 2018-05-18 12:25 | CON.GI ---
Consult Consult Specialty:: GI Referred by:: MICU Reason for Consultation:: cholecystitis - History of Present Illness Chief Complaint: chest pain History of Present Illness: 72F with h/o AF, AAA, hyperthyroid, Parkinson's, c. diff, chronic colitis presenting for evaluation of chest pain. Found to be septic, presumed urosepsis , was bradycardic, now intubated and hypotensive on pressors in ICU. GI consulted for abnormal LFTs. Patient has been persistently hypotensive since admission. On dopamine and levophed. LFTs continue to rise. No known liver disease, previously normal on last hospitalization. CT A/P with gallbladder wall thickening. Known to me from last hospitalization here at [facility] and at [facility]. Underwent repeat flexible sigmoidoscopy in Mar 2018 at [facility] showing persistent colitis, pathology with chronic active colitis, likely UC. For the colitis, she was empirically started on prednisone 60mg daily and to taper to and stay on 40mg until her GI office visit on 04/20. She missed this outpatient GI visit. Additionally, she was seen by allergy at [facility] to desensitize/assess for allergy to ASA. She underwent and passed a graded challenge. Per allergy note at [facility]: "On 03/25/18, we recommended aspirin graded challenge, which patient passed. Patient is not allergic to aspirin. This was removed from patient's allergies in the EMR." Patient is unable to provide history. 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 [employer] History of Recent Travel: No Home Medications - Allergies Allergies/Adverse Reactions: Allergies Allergy/AdvReac Type Severity Reaction Status Date / Time aspirin Allergy Verified 05/17/18 19:41 Penicillins Allergy Verified 05/17/18 19:41 - Home Medications Home Medications: Ambulatory Orders Amantadine HCl [Amantadine] 100 mg PO DAILY 11/25/17 Carbidopa/Levodopa [Rytary ER 36.25 mg-145 mg Cap] 1 each PO BID 11/25/17 Clopidogrel Bisulfate [Plavix] 75 mg PO DAILY 11/25/17 Diltiazem Cd [Cardizem Cd -] 180 mg PO DAILY 11/25/17 Lactobacillus Acidophilus [Acidophilus] 1 each PO DAILY 11/25/17 Potassium Chloride [K-Dur -] 20 meq PO DAILY 11/25/17 Propranolol HCl 60 mg PO TID 11/25/17 Sodium,Potassium Phosphates [Phos-Nak Packet] 1 each PO TID 11/25/17 Amino Acids/Protein Hydrolys [Prosource No Carb Liquid Pkt] 30 ml PO BID@0800, 1730 packet 12/01/17 Methimazole [Tapazole -] 20 mg PO Q12H tablet 12/01/17 Digoxin [Lanoxin -] 0.125 mg PO DAILY 12/18/17 Gabapentin [Neurontin -] 100 mg PO Q12H 12/18/17 Ferrous Sulfate 325 mg PO DAILY 02/08/18 Potassium Chloride 10 meq PO DAILY 02/08/18 Ascorbic Acid [Vitamin C -] 500 mg PO DAILY 05/17/18 Review of Systems Unable to obtain ROS, reason: patient intubated Physical Exam-GI Vital Signs: Vital Signs Temperature 96.6 F L 05/18/18 02:37 Pulse Rate 72 05/18/18 08:10 Respiratory Rate 22 H 05/18/18 11:49 Blood Pressure 120/74 05/18/18 10:22 O2 Sat by Pulse Oximetry (%) 100 05/18/18 11:49 Cardiovascular: Yes: Regular Rate and Rhythm Respiratory: Yes: Regular ...Auscultate: Yes: Normoactive Bowel Sounds ...Palpate: Yes: Soft ...Rectal Exam: Yes: Deferred Neurological: Yes: Other (sedated) Labs: CBC, BMP 05/18/18 05:20 05/18/18 06:00 INR, PTT INR 1.71 (0.83-1.09) H 05/17/18 20:13 Hepatic Panel Total Bilirubin 1.3 mg/dL (0.2-1) H 05/18/18 06:00 Direct Bilirubin 0.8 mg/dL (0.0-0.2) H 05/17/18 20:13 AST 2015 U/L (15-37) H 05/18/18 06:00 ALT 973 U/L (13-61) H 05/18/18 06:00 Alkaline Phosphatase 141 U/L (45-117) H 05/18/18 06:00 Albumin 2.5 g/dl (3.4-5.0) L 05/18/18 06:00 Imaging - Results Cat Scan: Report Reviewed (gallbladder wall thickening noted) Assessment/Plan LFT elevation is likely secondary to shock liver given sepsis; LFTs normal 03/20 at [facility]. Can trend LFTs. Regarding chronic colitis, of concern would be if she were taking prednisone 40mg until now -- would confirm if she was with -- if so, may be adrenally insufficient now in the setting of sepsis -- may require more steroids Regarding gallbladder wall thickening, does not seem to be the source of her sepsis. If clinical concern, could consider surgical consult vs IR cholecystostomy Above discussed with MICU resident
--- NOTE | 2018-05-18 12:43 | PN ---
Teaching Attending Note Name of Resident: Estrella Langston ATTENDING PHYSICIAN STATEMENT I saw and evaluated the patient. I reviewed the resident's note and discussed the case with the resident. I agree with the resident's findings and plan as documented. SUBJECTIVE: Patient seen and examined in the ICU. Intubated and sedated. AC Mode of vent, 100% FiO2. Dopamine @ 10 mcq, NE @ 5 mcq for hemodynamic support. CXR: Bilateral pleural and parenchymal changes that are increasing Intake & Output 05/15/18 05/16/18 05/17/18 05/18/18 23:59 23:59 23:59 23:59 Weight 120 lb Last Vital Signs Temp Pulse Resp BP Pulse Ox 96.6 F L 72 22 H 120/74 100 05/18/18 02:37 05/18/18 08:10 05/18/18 11:49 05/18/18 10:22 05/18/18 11:49 Active Medications Amantadine HCl (Symmetrel -) 100 mg PO DAILY MELANY Last Admin: 05/18/18 10:48 Dose: Not Given Heparin Sodium (Porcine) (Heparin -) 5,000 unit SQ BID MELANY Last Admin: 05/18/18 11:34 Dose: 5,000 unit Hydrocortisone Sodium Succinate (Solu-Cortef -) 100 mg IVPUSH Q8H-IV MELANY Sodium Chloride (Normal Saline -) 1,000 mls @ 100 mls/hr IV ASDIR MELANY Last Admin: 05/18/18 04:31 Dose: 100 mls/hr Dopamine HCl 400,000 mcg/ (Sodium Chloride) 250 mls @ 4.08 mls/hr IV TITR MELANY; Protocol Last Admin: 05/18/18 07:12 Dose: 2 mcg/kg/min, 4.08 mls/hr Norepinephrine Bitartrate 8, (000 mcg/ Dextrose) 500 mls @ 6.12 mls/hr IV ASDIR MELANY; Protocol Last Admin: 05/18/18 07:15 Dose: 0.03 mcg/kg/min, 6.12 mls/hr Meropenem 500 mg/ Dextrose 100 mls @ 200 mls/hr IVPB Q12H MELANY Azithromycin (Zithromax 500mg Ivpb (Pre-Docked)) 500 mg in 250 mls @ 250 mls/ hr IVPB DAILY MELANY Last Admin: 05/18/18 11:26 Dose: 250 mls/hr Meropenem 500 mg/ Dextrose 100 mls @ 200 mls/hr IVPB BID [facility] Stop: 05/18/18 22:29 Last Admin: 05/18/18 10:48 Dose: 200 mls/hr Propofol (Diprivan -) 1,000,000 mcg in 100 mls @ 1.633 mls/hr IVPB TITR MELANY; Protocol Methimazole (Tapazole -) 20 mg PO BID [facility] Last Admin: 05/18/18 10:52 Dose: Not Given GENERAL: Intubated and sedated. HEAD: Normal with no signs of trauma. EYES: Pupils equal, round and reactive to light, extraocular movements intact, sclera anicteric, conjunctiva clear. No lid lag. EARS, NOSE, THROAT: Ears normal, nares patent, oropharynx clear without exudates. Moist mucous membranes. NECK: (?) Crepitus, No JVD LUNGS: Vented, bilateral coarse breath sounds. No wheezes HEART: Regular rate and rhythm, normal S1 and S2 without murmur, rub or gallop. ABDOMEN: Soft, nontender, not distended, normoactive bowel sounds, no guarding, no rebound, no masses. No hepatomegaly or splenomegaly. MUSCULOSKELETAL: No bony deformities or tenderness. No CVA tenderness. UPPER EXTREMITIES: No cyanosis. No clubbing. Cap refill <2 seconds. No peripheral edema. LOWER EXTREMITIES: No peripheral edema. NEUROLOGICAL: Sedated PSYCHIATRIC: Cooperative. Good eye contact. Appropriate mood and affect. SKIN: Warm, dry, normal turgor, no rashes or lesions noted. Laboratory Results - last 24 hr 05/17/18 05/17/18 05/17/18 20:13 20:13 20:13 WBC 15.5 H RBC 3.29 L Hgb 9.4 L Hct 30.2 L MCV 91.5 MCH 28.4 D MCHC 31.0 L RDW 16.8 H Plt Count 348 MPV 8.1 D Absolute Neuts (auto) 10.9 H Neutrophils % 70.5 Lymphocytes % 18.8 Monocytes % 10.5 H Eosinophils % 0.0 D Basophils % 0.2 Nucleated RBC % 0 ESR PT with INR 20.30 H INR 1.71 H Anticoagulation Therapy Puncture Site ABG pH ABG pCO2 at Pt Temp ABG pO2 at Pt Temp ABG HCO3 ABG O2 Sat (Measured) ABG O2 Content ABG Base Excess Carlos Test O2 Delivery Device Oxygen Flow Rate Vent Mode Vent Rate Mechanical Rate PEEP Pressure Support Vent Sodium 137 Potassium 6.0 H Chloride 103 Carbon Dioxide 15 L Anion Gap 20 H BUN 31 H Creatinine 2.3 H Creat Clearance w eGFR 20.79 POC Glucometer Random Glucose 57 L Lactic Acid Calcium 8.3 L Phosphorus Magnesium Total Bilirubin 1.5 H Direct Bilirubin 0.8 H GGT AST 425 H ALT 243 H Alkaline Phosphatase 147 H Creatine Kinase 95 Troponin I < 0.02 C-Reactive Protein Total Protein 7.4 Albumin 2.9 L Lipase 35 L TSH Urine Color Urine Appearance Urine pH Ur Specific Heppner Urine Protein Urine Glucose (UA) Urine Ketones Urine Blood Urine Nitrite Urine Bilirubin Urine Urobilinogen Ur Leukocyte Esterase Urine WBC (Auto) Urine RBC (Auto) Ur Epithelial Cells Urine Bacteria Hyaline Casts Urine Mucus Digoxin Influenza A (Rapid) Influenza B (Rapid) 05/17/18 05/17/18 05/18/18 21:25 21:40 00:29 WBC RBC Hgb Hct MCV MCH MCHC RDW Plt Count MPV Absolute Neuts (auto) Neutrophils % Lymphocytes % Monocytes % Eosinophils % Basophils % Nucleated RBC % ESR PT with INR INR Anticoagulation Therapy Puncture Site ABG pH ABG pCO2 at Pt Temp ABG pO2 at Pt Temp ABG HCO3 ABG O2 Sat (Measured) ABG O2 Content ABG Base Excess Carlos Test O2 Delivery Device Oxygen Flow Rate Vent Mode Vent Rate Mechanical Rate PEEP Pressure Support Vent Sodium 138 Potassium 3.9 Chloride 105 Carbon Dioxide 18 L Anion Gap 15 BUN 34 H Creatinine 2.4 H Creat Clearance w eGFR 19.79 POC Glucometer Random Glucose 76 Lactic Acid Calcium 7.9 L Phosphorus Magnesium Total Bilirubin 1.2 H Direct Bilirubin GGT AST 950 H ALT 568 H Alkaline Phosphatase 146 H Creatine Kinase Troponin I 0.02 C-Reactive Protein Total Protein 7.0 Albumin 2.6 L Lipase TSH Urine Color Luann Urine Appearance Turbid Urine pH 5.0 Ur Specific Heppner 1.017 Urine Protein 2+ H Urine Glucose (UA) Negative Urine Ketones Negative Urine Blood 1+ H Urine Nitrite Negative Urine Bilirubin Negative Urine Urobilinogen 2.0 H Ur Leukocyte Esterase 3+ H D Urine WBC (Auto) 372 Urine RBC (Auto) 26 Ur Epithelial Cells Rare Urine Bacteria Moderate Hyaline Casts 49 Urine Mucus Rare Digoxin Influenza A (Rapid) Negative Influenza B (Rapid) Negative 05/18/18 05/18/18 05/18/18 00:29 02:16 02:20 WBC RBC Hgb Hct MCV MCH MCHC RDW Plt Count MPV Absolute Neuts (auto) Neutrophils % Lymphocytes % Monocytes % Eosinophils % Basophils % Nucleated RBC % ESR PT with INR INR Anticoagulation Therapy Puncture Site ABG pH ABG pCO2 at Pt Temp ABG pO2 at Pt Temp ABG HCO3 ABG O2 Sat (Measured) ABG O2 Content ABG Base Excess Carlos Test O2 Delivery Device Oxygen Flow Rate Vent Mode Vent Rate Mechanical Rate PEEP Pressure Support Vent Sodium Potassium Chloride Carbon Dioxide Anion Gap BUN Creatinine Creat Clearance w eGFR POC Glucometer Random Glucose Lactic Acid 8.3 H* 6.1 H* Calcium Phosphorus Magnesium Total Bilirubin Direct Bilirubin GGT AST ALT Alkaline Phosphatase Creatine Kinase Troponin I C-Reactive Protein 7.9 H Total Protein Albumin Lipase TSH Urine Color Urine Appearance Urine pH Ur Specific Heppner Urine Protein Urine Glucose (UA) Urine Ketones Urine Blood Urine Nitrite Urine Bilirubin Urine Urobilinogen Ur Leukocyte Esterase Urine WBC (Auto) Urine RBC (Auto) Ur Epithelial Cells Urine Bacteria Hyaline Casts Urine Mucus Digoxin 0.11 L Influenza A (Rapid) Influenza B (Rapid) 05/18/18 05/18/18 05/18/18 05:20 05:20 06:00 WBC 16.5 H RBC 3.02 L Hgb 8.5 L Hct 27.8 L MCV 92.3 MCH 28.1 MCHC 30.4 L RDW 17.2 H Plt Count 286 MPV 8.1 Absolute Neuts (auto) 12.8 H Neutrophils % 77.7 Lymphocytes % 13.2 D Monocytes % 8.9 Eosinophils % 0.0 Basophils % 0.2 Nucleated RBC % 0 ESR 51 H PT with INR INR Anticoagulation Therapy Puncture Site ABG pH ABG pCO2 at Pt Temp ABG pO2 at Pt Temp ABG HCO3 ABG O2 Sat (Measured) ABG O2 Content ABG Base Excess Carlos Test O2 Delivery Device Oxygen Flow Rate Vent Mode Vent Rate Mechanical Rate PEEP Pressure Support Vent Sodium 136 Potassium 5.4 H Chloride 106 Carbon Dioxide 14 L Anion Gap 17 H BUN 38 H Creatinine 2.2 H Creat Clearance w eGFR 21.88 POC Glucometer Random Glucose 14 L* Lactic Acid Calcium 7.9 L Phosphorus 5.0 H Magnesium 1.9 Total Bilirubin 1.3 H Direct Bilirubin GGT AST 2015 H ALT 973 H Alkaline Phosphatase 141 H Creatine Kinase Troponin I 0.05 C-Reactive Protein Total Protein 6.8 Albumin 2.5 L Lipase TSH 3.68 Urine Color Urine Appearance Urine pH Ur Specific Heppner Urine Protein Urine Glucose (UA) Urine Ketones Urine Blood Urine Nitrite Urine Bilirubin Urine Urobilinogen Ur Leukocyte Esterase Urine WBC (Auto) Urine RBC (Auto) Ur Epithelial Cells Urine Bacteria Hyaline Casts Urine Mucus Digoxin Influenza A (Rapid) Influenza B (Rapid) 05/18/18 05/18/18 05/18/18 06:00 08:47 08:52 WBC RBC Hgb Hct MCV MCH MCHC RDW Plt Count MPV Absolute Neuts (auto) Neutrophils % Lymphocytes % Monocytes % Eosinophils % Basophils % Nucleated RBC % ESR PT with INR INR Anticoagulation Therapy Puncture Site ABG pH ABG pCO2 at Pt Temp ABG pO2 at Pt Temp ABG HCO3 ABG O2 Sat (Measured) ABG O2 Content ABG Base Excess Carlos Test O2 Delivery Device Oxygen Flow Rate Vent Mode Vent Rate Mechanical Rate PEEP Pressure Support Vent Sodium Potassium Chloride Carbon Dioxide Anion Gap BUN Creatinine Creat Clearance w eGFR POC Glucometer < 10 219 Random Glucose Lactic Acid Calcium Phosphorus Magnesium Total Bilirubin Direct Bilirubin GGT 84 AST ALT Alkaline Phosphatase Creatine Kinase Troponin I C-Reactive Protein Total Protein Albumin Lipase TSH Urine Color Urine Appearance Urine pH Ur Specific Heppner Urine Protein Urine Glucose (UA) Urine Ketones Urine Blood Urine Nitrite Urine Bilirubin Urine Urobilinogen Ur Leukocyte Esterase Urine WBC (Auto) Urine RBC (Auto) Ur Epithelial Cells Urine Bacteria Hyaline Casts Urine Mucus Digoxin Influenza A (Rapid) Influenza B (Rapid) 05/18/18 05/18/18 05/18/18 09:07 09:12 09:50 WBC RBC Hgb Hct MCV MCH MCHC RDW Plt Count MPV Absolute Neuts (auto) Neutrophils % Lymphocytes % Monocytes % Eosinophils % Basophils % Nucleated RBC % ESR PT with INR INR Anticoagulation Therapy No Result Required. Puncture Site Left radial ABG pH 7.20 L* ABG pCO2 at Pt Temp 35.6 ABG pO2 at Pt Temp 56.0 L ABG HCO3 13.4 L* ABG O2 Sat (Measured) 71.8 L* ABG O2 Content 7.8 L* ABG Base Excess -13.3 L* Carlos Test No Result Required. O2 Delivery Device No Result Required. Oxygen Flow Rate 100 Vent Mode No Result Required. Vent Rate No Result Required. Mechanical Rate No Result Required. PEEP 5.0 Pressure Support Vent No Result Required. Sodium Potassium Chloride Carbon Dioxide Anion Gap BUN Creatinine Creat Clearance w eGFR POC Glucometer 157 Random Glucose Lactic Acid 8.9 H* Calcium Phosphorus Magnesium Total Bilirubin Direct Bilirubin GGT AST ALT Alkaline Phosphatase Creatine Kinase Troponin I C-Reactive Protein Total Protein Albumin Lipase TSH Urine Color Urine Appearance Urine pH Ur Specific Heppner Urine Protein Urine Glucose (UA) Urine Ketones Urine Blood Urine Nitrite Urine Bilirubin Urine Urobilinogen Ur Leukocyte Esterase Urine WBC (Auto) Urine RBC (Auto) Ur Epithelial Cells Urine Bacteria Hyaline Casts Urine Mucus Digoxin Influenza A (Rapid) Influenza B (Rapid) ASSESSMENT/PLAN: Acute Respiratory Failure Parkinson's AFib AAA Recurrent C. diff Hyperthyroidism Lactic acidosis R/O Septic Shock (?) Acute cystitis Transaminitis R/O PNA (?) Crepitus RACHELLE AFib Bradycardia Colitis Dopamine and NE for hemodynamic support Strict I & O ABX per ID Check ABG Follow lactic acid ECHO Hold all AV esha blocking agents GI follow up Follow cultures IVF VTE prophylaxis Hydrocortisone Requires ICU monitoring Dr Day Critical care time spent in reviewing chart, evaluating patient and formulating plan - 36 minutes.
--- NOTE | 2018-05-18 13:24 | CON.ID ---
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[employer] History of Recent Travel: No Home Medications - Allergies Allergies/Adverse Reactions: Allergies Allergy/AdvReac Type Severity Reaction Status Date / Time aspirin Allergy Verified 05/17/18 19:41 Penicillins Allergy Verified 05/17/18 19:41 - Home Medications Home Medications: Ambulatory Orders Amantadine HCl [Amantadine] 100 mg PO DAILY 11/25/17 Carbidopa/Levodopa [Rytary ER 36.25 mg-145 mg Cap] 1 each PO BID 11/25/17 Clopidogrel Bisulfate [Plavix] 75 mg PO DAILY 11/25/17 Diltiazem Cd [Cardizem Cd -] 180 mg PO DAILY 11/25/17 Lactobacillus Acidophilus [Acidophilus] 1 each PO DAILY 11/25/17 Potassium Chloride [K-Dur -] 20 meq PO DAILY 11/25/17 Propranolol HCl 60 mg PO TID 11/25/17 Sodium,Potassium Phosphates [Phos-Nak Packet] 1 each PO TID 11/25/17 Amino Acids/Protein Hydrolys [Prosource No Carb Liquid Pkt] 30 ml PO BID@0800, 1730 packet 12/01/17 Methimazole [Tapazole -] 20 mg PO Q12H tablet 12/01/17 Digoxin [Lanoxin -] 0.125 mg PO DAILY 12/18/17 Gabapentin [Neurontin -] 100 mg PO Q12H 12/18/17 Ferrous Sulfate 325 mg PO DAILY 02/08/18 Potassium Chloride 10 meq PO DAILY 02/08/18 Ascorbic Acid [Vitamin C -] 500 mg PO DAILY 05/17/18 Physical Exam Vital Signs: Vital Signs Temperature 96.6 F L 05/18/18 02:37 Pulse Rate 77 05/18/18 12:37 Respiratory Rate 18 05/18/18 12:37 Blood Pressure 105/70 05/18/18 12:37 O2 Sat by Pulse Oximetry (%) 100 05/18/18 11:49 Labs: CBC, BMP 05/18/18 05:20 05/18/18 06:00
[2018-05-18] MEDS ORDERED: MEROPENEM 1 GM in DEXTROSE 5%-WATER 100 ML IVPB SCH (13:45)
--- NOTE | 2018-05-18 14:20 | PROC ---
Central Line Insertion Indication: Sepsis, Vasopressor Risks and Benefits Explained: Yes Consent on Chart: No (Verbal consent from patients H) Central Line: Triple Lumen Catheter Anesthesia: 1% Lidocaine Sterile Technique: Yes Ultrasound Guided Assistance: Yes Position: Right Internal Jugular Post Insertion: Yes: Bilateral Breath Sounds, Bilateral Chest Expansion, Chest X-Ray Ordered Sterile Dressing Applied: Yes
[2018-05-18 14:49] VITALS: TEMP 96
--- NOTE | 2018-05-18 14:51 | PN ---
Progress Note (short form) - Note Progress Note: I was called to see patient for unresponsiveness. On exam the patient did not respond to verbal or physical stimuli and no spontaneous movement was observed. Absent heart sounds and no spontaneous respirations for more than one minute. Absent peripheral pulses. Pupils are fixed and dilated, corneal reflex was absent. Patient pronounced at [address] Serra notified. at bedside.
[2018-05-18] MEDS ORDERED: MIDAZOLAM HCL 2 MG/2 ML SINGLE DOSE VIAL IVPUSH ONE (15:37)
--- NOTE | 2018-05-18 15:44 | CONSULT ---
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[employer] History of Recent Travel: No Home Medications - Allergies Allergies/Adverse Reactions: Allergies Allergy/AdvReac Type Severity Reaction Status Date / Time aspirin Allergy Verified 05/17/18 19:41 Penicillins Allergy Verified 05/17/18 19:41 - Home Medications Home Medications: Ambulatory Orders Amantadine HCl [Amantadine] 100 mg PO DAILY 11/25/17 Carbidopa/Levodopa [Rytary ER 36.25 mg-145 mg Cap] 1 each PO BID 11/25/17 Clopidogrel Bisulfate [Plavix] 75 mg PO DAILY 11/25/17 Diltiazem Cd [Cardizem Cd -] 180 mg PO DAILY 11/25/17 Lactobacillus Acidophilus [Acidophilus] 1 each PO DAILY 11/25/17 Potassium Chloride [K-Dur -] 20 meq PO DAILY 11/25/17 Propranolol HCl 60 mg PO TID 11/25/17 Sodium,Potassium Phosphates [Phos-Nak Packet] 1 each PO TID 11/25/17 Amino Acids/Protein Hydrolys [Prosource No Carb Liquid Pkt] 30 ml PO BID@0800, 1730 packet 12/01/17 Methimazole [Tapazole -] 20 mg PO Q12H tablet 12/01/17 Digoxin [Lanoxin -] 0.125 mg PO DAILY 12/18/17 Gabapentin [Neurontin -] 100 mg PO Q12H 12/18/17 Ferrous Sulfate 325 mg PO DAILY 02/08/18 Potassium Chloride 10 meq PO DAILY 02/08/18 Ascorbic Acid [Vitamin C -] 500 mg PO DAILY 05/17/18 Physical Exam Vital Signs: Vital Signs Temperature 96.0 F L 05/18/18 11:00 Pulse Rate 77 05/18/18 12:37 Respiratory Rate 17 05/18/18 14:02 Blood Pressure 105/70 05/18/18 12:37 O2 Sat by Pulse Oximetry (%) 100 05/18/18 11:49 Labs: CBC, BMP 05/18/18 05:20 05/18/18 06:00
--- NOTE | 2018-05-18 15:52 | PN ---
Teaching Attending Note Name of Resident: David Britt ATTENDING PHYSICIAN STATEMENT I saw and evaluated the patient. I reviewed the resident's note and discussed the case with the resident. I agree with the resident's findings and plan as documented. Mrs Wilson is a 72 year old female who came in with septic shock. She was intubated and started on pressors and broad spectrum antibiotics. Her presented and made the patient DNR. Patient on 05/18/18.
[2018-05-18 17:18] VITALS: BP 60/32; PULSE 65
[2018-05-18] MEDS ORDERED: MEROPENEM 1 GM in DEXTROSE 5%-WATER - 100 ML IVPB SCH (18:00)
[2018-05-19 11:24] LABS: HEP.C VIRUS AB 0.2 s/co ratio (0.0-0.9)
== END 2018-05-18 17:10 | disposition expired | DRG 871 ==
LOC: JER 19:18 → JERBED 05-18 01:11 → JICU 05-18 08:21
PROVIDERS: ADMIT Internal Medicine; ATTEND Internal Medicine
PROC: 5A1935Z Respiratory Ventilation, Less than 24 Consecutive Hours (ICD-10-PCS; principal; 2018-05-18)
PROC: 0BH17EZ Insertion of Endotracheal Airway into Trachea, Via Natural or Artificial Opening (ICD-10-PCS; 2018-05-18)
PROC: 05HM33Z Insertion of Infusion Device into Right Internal Jugular Vein, Percutaneous Approach (ICD-10-PCS; 2018-05-18)
DX: A41.9 Sepsis, unspecified organism (principal); J96.00 Acute respiratory failure, unspecified whether with hypoxia or hypercapnia; E43 Unspecified severe protein-calorie malnutrition; J18.9 Pneumonia, unspecified organism; E87.2 Acidosis; N17.9 Acute kidney failure, unspecified; A04.71 Enterocolitis due to Clostridium difficile, recurrent; N39.0 Urinary tract infection, site not specified; R65.20 Severe sepsis without septic shock; G20 Parkinson's disease; I48.91 Unspecified atrial fibrillation; R00.1 Bradycardia, unspecified; J44.9 Chronic obstructive pulmonary disease, unspecified; E05.90 Thyrotoxicosis, unspecified without thyrotoxic crisis or storm; E87.5 Hyperkalemia; Z68.20 Body mass index [BMI] 20.0-20.9, adult; D64.9 Anemia, unspecified; E83.39 Other disorders of phosphorus metabolism; I95.9 Hypotension, unspecified; R74.0 Nonspecific elevation of levels of transaminase and lactic acid dehydrogenase [LDH]; D72.829 Elevated white blood cell count, unspecified
CPT/HCPCS: 36415; 36600; 71045-TC-FY; 74176-TC; 76705-TC; 80053; 80074; 80162; 81003; 81015; 82248; 82550; 82803; 82962; 82977; 83605; 83690; 83735; 84100; 84443; 84484; 85025; 85610; 85651; 86140; 86376; 87040; 87086; 87186; 87389; 87804; 87899; 93005; 93010; 94002; 99285-25; J1250; J1644; J7030